=== PATIENT | female | born 1955 | race Caucasian/White ===

== ENCOUNTER 2019-02-22 13:25 | Inpatient (IN) ==
[2019-02-22] MEDS ORDERED: ONDANSETRON INJ 2 MG/ML 2 ML VIAL ONE (13:45)
[2019-02-22] MEDS ORDERED: SODIUM CHLORIDE 0.9% 500 ML IV SCH (13:45)
[2019-02-22] MEDS ORDERED: SODIUM CHLORIDE 0.9% 1000ML 1,000 ML IV SCH (13:45)
[2019-02-22] MEDS ORDERED: HYDROmorphone INJ 0.5 MG/0.5 ML SYR IV STA (13:56)
[2019-02-22] MEDS ORDERED: ONDANSETRON INJ 2 MG/ML 2 ML VIAL IV STA (13:56)
--- NOTE | 2019-02-22 14:35 | Gastrointestinal Consultation ---
Date of Consultation February 22, 2019 Assessment & Plan (1) Abdominal pain: 63 year old female w/ history spinal stenosis s/p inguinal hernia repair in January 2019 who presents to the ED w/ persistent abdominal pain worsening over the past 24 hours. Report questioning diverticulitis on CT from OSH - CBC/CMP - Continue IV analgesia - Continue IV antiemetics - Arrange contrast enhanced CT - Can continue Bentyl Thank you for allowing us to participate in the care of this patient. Please call with any acute changes, questions or concerns. Please see addendum below with additional recommendation from my supervising physician. Supervising Physician Co-Signing Physician Notes I have personally seen and examined the patient with FANG Crenshaw. Her note reflects my exam and findings. I agree with her impression and plan. Patient already feeling better after receiving pain medication. Agree with CT and check WBC. Unclear etiology of pain. Ramsey Gregory M.D. History of Present Illness Reason for Consultation: abdominal pain Requesting Physician: Alice Attending Physician: Alice History of Present Illness 63 year old female with history of spinal stenosis s/p inguinal hernia repair in January 2019 who presents to the ED w/ persistent abdominal pain worsening over the past 24 hours. Pt was seen and evaluated, chart reviewed. She endorses a history of chronic constipation. Maintined on Miralax near daily. Was in her typical state of health s/p hernia repair and was noted to be healing appropriately. 4/5 days after this, she developed lower abdominal pain. This was severe, cramping. Mostly LLQ but also RLQ. It was not associated with PO. Worse with BM. Bowels largely unchanged. No diarrhea, constipation. No black or bloody stools. Pain persisted, did present to OSH. I do not have report of CT scan but this was concerning for mild diverticulitis. She was evaluated by GI, started on bowel regimen and Bentyl. Notes the Bentyl had initially helped her symptoms, however, over the past 24 hours, pain has worsened. Constant, lower abd pain. Associated w/ nausea and vomiting yesterday. Did have a BM last evening that was normal. Some chills at home but no fevers. Allergies Allergy/AdvReac Type Severity Reaction Status Date / Time No Known Allergies Allergy Unverified 02/22/19 14:08 Home Medications Home Medications Medication Instructions Recorded Confirmed Type bupropion HCl [Wellbutrin XL] 150 mg PO QAM 02/22/19 02/22/19 History dicyclomine 10 mg PO BID 02/22/19 02/22/19 History fexofenadine-pseudoephedrine 1 tab PO PM PRN 02/22/19 02/22/19 History [Gwendolyn-D 24 Hour] hydrocodone-acetaminophen 1 tab PO Q6H PRN 02/22/19 02/22/19 History Patient History Medical History Spinal stenosis (Chronic) Surgical History H/O hernia repair (Resolved) Social History Smoking Status: Never smoker Review of Systems Constitutional: + chills and + fatigue; no fever and no weight loss Respiratory: no cough, no dyspnea and no wheezing Cardiovascular: no chest pain, no radiating jaw, neck or arm pain and no claudication Gastrointestinal: + abdominal pain, + bloating, + nausea and + vomiting; no belching, no early satiety, no heartburn, no coffee ground emesis, no hematemesis, no pain with swallowing, no dysphagia, no cramping, no excessive flatulence, no change in bowel habits, no change in stools, no constipation, no diarrhea/loose stools, no fecal incontinence, no blood in stools and no melena Physical Exam Constitutional: WD/WN, vitals as above Neck: trachea midline Respiratory: normal respiratory effort, lungs clear to auscultation Cardiovascular: RRR, no murmur, no edema Gastrointestinal (Abdomen): Inspection/Auscultation: normal bowel sounds Percussion/Palpation: + abdomen tender (mild lower abd pain w/ palpation) and abdomen soft; no guarding, abdomen not rigid, no abdominal mass and no ascites Skin: no rashes, warm and dry Results & Data Vital Signs (Past 12 Hours) Vital Signs Temp Pulse Resp BP Pulse Ox 02/22/19 13:27 36.6 C 79 28 H 180/90 H 100
[2019-02-22 15:08] LABS: Basophils # (auto) 0.03 K/uL (0-0.2); Basophils % (auto) 0.6 %; Eosinophils # (auto) 0.08 K/uL (0-0.5); Eosinophils % (auto) 1.5 %; Hematocrit (blood only) 38.8 % (37-47); Hemoglobin 14.3 g/dL (12.0-16.0); Immature Granulocytes # (auto) 0.01 K/uL (0.00-0.02); Immature Granulocytes % (auto) 0.2 %; Lymphocytes % (auto) 32.6 %; Mean Corpuscular Hgb Conc 36.9 g/dL (32-36); Mean Corpuscular Volume 88.2 fL (80-100); Mean Platelet Volume 10.5 fL (7.4-10.4); Monocytes # (auto) 0.63 K/uL (0.11-0.59); Monocytes % (auto) 12.1 %; Neutrophils # (auto) 2.76 K/uL (1.4-6.5); Platelet Count 260 K/uL (130-400); RDW Coefficient of Variation 13.4 % (11.5-14.5); RDW Standard Deviation 43.2 fL (36.4-46.3); White Blood Count 5.21 K/uL (4.8-10.8)
[2019-02-22 15:51] LABS: Alanine Aminotransferase 24 U/L (12-78); Albumin Level 3.6 gm/dl (3.4-5.0); Aspartate Aminotransferase 17 U/L (15-37); BUN Creatinine Ratio 12.3 (10-20); Blood Urea Nitrogen 8 mg/dl (7-18); Calcium 8.5 mg/dl (8.5-10.1); Carbon Dioxide 25 mmol/L (21-32); Chloride 99 mmol/L (98-107); Est GFR (African American) 107.7; Est GFR (Non-African American) 92.9; Glucose 124 mg/dl (70-99); Potassium 3.1 mmol/L (3.5-5.1); Sodium 131 mmol/L (136-145)
[2019-02-22 15:55] LABS: Albumin Globulin Ratio 1.4 (0.9-2); Alkaline Phosphatase 59 U/L (45-117); Bilirubin,Total 0.6 mg/dl (0.2-1); Globulin 2.6 gm/dl (2.5-4.0); Total Protein 6.2 gm/dl (6.4-8.2)
[2019-02-22] MEDS ORDERED: IOVERSOL 100ml IV PRN (16:10)
[2019-02-22 16:20] LABS: Appearance Urine Clear (Clear); Bilirubin Urine Negative (Negative); Blood Urine Negative (Negative); Color Urine Yellow; Glucose Urine UA Negative (Negative); Ketones Urine Trace (Negative); Leukocyte Esterase Urine Negative (Negative); Nitrite Urine Negative (Negative); Protein Urine Negative (Negative); Specific Gravity Urine 1.009 (1.000-1.030); Urobilinogen Urine Negative (Negative); pH Urine 7.5 (4.5-7.5)
--- NOTE | 2019-02-22 16:28 | CT Scan Report ---
CT abd pelvis oral and IV con CLINICAL HISTORY: 63 years-old Female presenting with lower abd pain, colicky s/p inguinal hernia rep air. TECHNIQUE: Multidetector CT of the abdomen and pelvis was performed after the administration of oral and intravenous contrast. IV contrast: Optiray 320. One or more dose lowering techniques were used co nsistent with the principles of ALARA (as low as reasonably achievable), including automatic exposure control, mA or kV adjustment to individual patient size, and/or use of iterative reconstruction. COMPARISON: Outside CT from 02/09/2019. CT DOSE (mGy.cm): The estimated cumulative dose is 250.41 mGy.cm. FINDINGS: [employer] topogram: Unremarkable. Lung bases: Normal heart size. No pericardial or pleural effusion. Minimal dependent changes likely a telectasis. Liver: Normal morphology. Subcentimeter well-defined hypodense lesion in the right hepatic lobe likel y hepatic cyst or hamartoma. Patent hepatic vasculature. Biliary: No intrahepatic or extrahepatic biliary ductal dilatation. Normal gallbladder. Pancreas: Top normal prominence of the pancreatic duct. Pancreatic parenchyma normal. Spleen: Normal. Adrenal glands: Normal. Kidneys and ureters: Normal. No hydronephrosis. Bladder: Incompletely evaluated secondary to underdistention. Pelvic organs: Uterus and ovaries normal. Bowel: Mild apparent wall thickening of the left colon, which is most likely due to underdistention. Mildly distended small bowel in the pelvis and right lower quadrant with a diameter of 2.5 cm. There is smooth downstream and up stream tapering to normal caliber. No convincing evidence of obstruction. No significant small bowel wall thickening is apparent. Peritoneal cavity: Mild diffuse mesenteric edema. Small volume simple appearing ascites in the pelvis and trace ascites in the abdomen. Lymph nodes: No enlarged lymph nodes in the abdomen or pelvis. Vasculature: Aorta and IVC patent and normal in caliber. Abdominal wall: Mild body wall edema. No evidence of a recurrent left inguinal hernia. Musculoskeletal: Advanced degenerative changes of the spine. IMPRESSION: 1. Mild body wall edema, mesenteric edema, and small volume ascites could suggest volume overload. 2. Distention of the small bowel in the pelvis or right lower quadrant without convincing evidence o f a bowel obstruction. This could indicate a mild ileus such as in the setting of a mild enteritis or in the postsurgical setting. 3. No evidence of a recurrent left inguinal hernia. Electronically signed by: Fabricio Marin M.D. 02/22/2019 4:26 PM
[2019-02-22] MEDS: POTASSIUM CHLORIDE / WTR 10 MEQ/100 ML PLCT IV SCH ×2 (16:34→17:46)
--- NOTE | 2019-02-22 17:33 | Emergency Department Note ---
Entered by Sandhya Herrera acting as a scribe for Maddy Jenkins MD History of Present Illness General Chief complaint: Abdominal Pain Stated complaint: SEVERE ABD PAIN, S/P LEIGH 3 WEEKS AGO Source: patient and family History of Present Illness Provider complaint: abdominal pain Onset (ago): week(s) 3 Location: abdomen Severity: severe Maximum Pain Intensity: 10 Quality: + other (cramping) Associated symptoms: + nausea/vomiting The patient is a 63 year old female who presents to the Emergency Department with complaints of abdominal pain over the last 3 weeks. She describes the pain as a cramp and states that her pain is severe. The patient states that she had a hernia surgery done 3 weeks ago in [place]. The patient states that she has been having bowel movements and states that she has been drinking Miralax. The patient states that she vomited last night. Her states that the patient was in the ED on February 09 for abdominal pain. Her states that the patient's symptoms have worsened since 2200 last night. Per , the patient has severe spinal stenosis. Per , the patient has lost about 7-8 pounds. Home Medications Home Medications Medication Instructions Recorded Confirmed Type bupropion HCl 150 mg PO DAILY 02/22/19 02/22/19 History cholecalciferol (vitamin D3) 2,000 unit PO DAILY 02/22/19 02/22/19 History [Vitamin D3] dicyclomine 10 mg PO BID 02/22/19 02/22/19 History fexofenadine-pseudoephedrine 1 tab PO PM PRN 02/22/19 02/22/19 History [Gwendolyn-D 24 Hour] Allergies Allergy/AdvReac Type Severity Reaction Status Date / Time No Known Allergies Allergy Unverified 02/22/19 14:08 Past Med/Surg History Medical History Depression (Chronic) Spinal stenosis (Chronic) Surgical History H/O hernia repair (Resolved) History of hand surgery (Chronic) History of lumpectomy (Chronic) History of shoulder surgery (Chronic) Family History Other Colonic polyp Social History Preferred Language: Irish Communication Ability: Effective Fur Operator Required: No Beliefs That Will Affect Care: None Current Living Situation: Spouse Other Information That Helps Us Care for You: No Feels Safe at Home: Yes Safety Concerns: Feels Safe At This Time Smoking Status: Never smoker Hx Alcohol Use: Yes Alcohol type: wine Alcohol type Comment: socially Hx Substance Use: No Review of Systems See HPI for pertinent positives & negatives. and A total of 10 systems reviewed and were otherwise negative Physical Exam Vital Signs Vital Signs - 24 hr 02/22/19 13:27 02/22/19 15:49 02/22/19 17:00 Temperature 36.6 C Temperature Source Oral Sepsis Recent Fever Within 48 Hours No Sepsis Action Taken by Nursing No Action Required Pulse Rate 79 Pulse Rate [Apical] 62 60 Pulse Rhythm Regular Pulse Rhythm [Apical] Regular Pulse Strength Normal Pulse Strength [Apical] Normal Respiratory Rate 28 H 20 20 Respiratory Effort / Characteristics Non-Labored Spontaneous Respiratory Depth Normal Blood Pressure 180/90 H Blood Pressure [Right Arm] 165/73 H 131/77 Blood Pressure Mean 120 Blood Pressure Mean [Right Arm] 103 95 Blood Pressure Position Sitting Blood Pressure Position [Right Arm] Sitting Sitting Pulse Oximetry 100 99 99 Oxygen Delivery Method Room Air Vital signs reviewed. General: Well-appearing female, tearful, in no significant distress. HEENT: No scleral icterus, PERRLA, neck supple. Atraumatic. Cardiovascular: Regular rate and rhythm, no extra sounds. Pulmonary: Clear to auscultation bilaterally, normal work of breathing. Abdomen: Soft, nondistended, positive bowel sounds. Intermittent colicky pain in the lower abdomen. Incision appears to be well healing with no drainage or erythema. No appreciable hernia upon exam. Musculoskeletal: Atraumatic, no peripheral edema. Neurologic: Patient awake alert and oriented x . Skin: Warm, dry, no rash Course 1353: The patient was evaluated in room B4B. A history and physical were performed. 1649: I updated the patient who verbalized agreement and understanding of the treatment plan. 1658: I discussed the patient's case with Kaylynn Winston who will evaluate the patient for further management. Consultations Consultation #1: Kaylynn Winston Time: 16:58 Administered Medications Bupropion HCl (Wellbutrin-Sr) 150 mg PO DAILY ANNEL Stop: 03/25/19 08:59 Last Admin: 02/23/19 08:45 Dose: 150 mg Documented by: [id number] Dicyclomine HCl (Bentyl) 10 mg PO BID ANNEL Stop: 03/24/19 20:59 Last Admin: 02/23/19 08:44 Dose: 10 mg Documented by: [id number] Admin: 02/22/19 20:58 Dose: 10 mg Documented by: [id number] Hydromorphone HCl (Dilaudid) 0.5 mg IV Q4H PRN PRN Reason: Pain Stop: 03/08/19 20:24 Last Admin: 02/22/19 21:55 Dose: 0.5 mg Documented by: [id number] Vitamin D (Vitamin D3) 2,000 units PO DAILY ANNEL Stop: 03/25/19 08:59 Last Admin: 02/23/19 08:44 Dose: 2,000 units Documented by: [id number] Discontinued Medications Hydromorphone HCl (Dilaudid) 0.5 mg IV NOW STA Stop: 02/22/19 13:57 Last Admin: 02/22/19 14:05 Dose: 0.5 mg Documented by: [id number] Sodium Chloride (Nss 1000ml) 1,000 mls @ 125 mls/hr IV .Q8H ANNEL Stop: 03/24/19 13:44 Last Infusion: 02/22/19 18:56 Dose: 0 mls/hr Documented by: [id number] Admin: 02/22/19 13:49 Dose: 125 mls/hr Documented by: [id number] Sodium Chloride (Nss) 500 mls @ 999 mls/hr IV .Q31M ANNEL Stop: 02/22/19 14:15 Last Infusion: 02/22/19 14:54 Dose: 0 mls/hr Documented by: [id number] Admin: 02/22/19 13:49 Dose: 999 mls/hr Documented by: [id number] Potassium Chloride (K Dileep / Wtr) 10 meq in 100 mls @ 100 mls/hr IV Q1H ANNEL Stop: 02/22/19 17:59 Last Infusion: 02/22/19 18:56 Dose: 0 mls/hr Documented by: [id number] Admin: 02/22/19 17:46 Dose: 100 mls/hr Documented by: [id number] Infusion: 02/22/19 17:46 Dose: 0 mls/hr Documented by: [id number] Admin: 02/22/19 16:34 Dose: 100 mls/hr Documented by: [id number] Potassium Chloride/Sodium Chloride (Normal Saline W/20 Meq Kcl) 20 meq in 1,000 mls @ 100 mls/hr IV .Q10H ANNEL Stop: 02/23/19 06:59 Last Infusion: 02/23/19 06:58 Dose: 0 mls/hr Documented by: [id number] Admin: 02/22/19 20:58 Dose: 100 mls/hr Documented by: [id number] Ioversol (Optiray 320 100ml) 94 ml IV ONCE PRN PRN Reason: Interaction Checking Stop: 02/26/19 16:09 Last Admin: 02/22/19 16:10 Dose: 94 ml Documented by: [id number] Ondansetron HCl (Zofran) Confirm Administered Dose 4 mg .ROUTE .STK-MED ONE Stop: 02/22/19 13:46 Last Admin: 02/22/19 13:49 Dose: 4 mg Documented by: [id number] Ondansetron HCl (Zofran) 4 mg IV NOW STA Stop: 02/22/19 13:57 Last Admin: 02/22/19 14:05 Dose: Not Given Documented by: [id number] Medical Decision Making Differential Diagnosis Differential diagnosis: Etiologies such as biliary colic, cholecystitis, hepatitis, perihepatitis, pancreatitis, cardiac disease, pancreatitis, gastritis, peptic ulcer disease, appendicitis, ovarian cyst, ovarian torsion, pelvic inflammatory disease, cystitis, diverticulitis, mesenteric ischemia, inflammatory bowel disease, ileus, bowel obstruction, aortic pathology, shingles, as well as others were considered. Medical Records Attestation: I reviewed the patient's medical records. Home Medications Current Medication List: was personally reviewed by me Laboratory Data Attestation: I reviewed the patient's lab results. Result diagrams: 02/23/19 08:04 02/23/19 08:04 Lab Results 02/22/19 02/22/19 02/22/19 Range/Units 13:42 15:14 15:14 WBC 5.21 (4.8-10.8) K/uL RBC 4.40 (4.2-5.4) M/uL Hgb 14.3 (12.0-16.0) g/dL Hct 38.8 (37-47) % MCV 88.2 (80-100) fL MCH 32.5 (25-34) pg MCHC 36.9 H (32-36) g/dL RDW Std Deviation 43.2 (36.4-46.3) fL RDW Coeff of Bj 13.4 (11.5-14.5) % Plt Count 260 (130-400) K/uL MPV 10.5 H (7.4-10.4) fL Immature Gran % (Auto) 0.2 % Neut % (Auto) 53.0 % Lymph % (Auto) 32.6 % Pine % (Auto) 12.1 % Eos % (Auto) 1.5 % Baso % (Auto) 0.6 % Immature Gran # (Auto) 0.01 (0.00-0.02) K/uL Neut # (Auto) 2.76 (1.4-6.5) K/uL Lymph # (Auto) 1.70 (1.2-3.4) K/uL Pine # (Auto) 0.63 H (0.11-0.59) K/uL Eos # (Auto) 0.08 (0-0.5) K/uL Baso # (Auto) 0.03 (0-0.2) K/uL Sodium 131 L (136-145) mmol/L Potassium 3.1 L (3.5-5.1) mmol/L Chloride 99 (98-107) mmol/L Carbon Dioxide 25 (21-32) mmol/L Anion Gap 7.0 (3-11) BUN 8 (7-18) mg/dl Creatinine 0.67 (0.6-1.2) mg/dl Est Cr Clr Drug Dosing Not Reportable Est GFR ( Amer) 107.7 Est GFR (Non-Af Amer) 92.9 BUN/Creatinine Ratio 12.3 (10-20) Glucose 124 H (70-99) mg/dl Lactate 0.7 (0.4-2.0) mmol/L Calcium 8.5 (8.5-10.1) mg/dl Total Bilirubin 0.6 (0.2-1) mg/dl AST 17 (15-37) U/L ALT 24 (12-78) U/L Alkaline Phosphatase 59 (45-117) U/L Total Protein 6.2 L (6.4-8.2) gm/dl Albumin 3.6 (3.4-5.0) gm/dl Globulin 2.6 (2.5-4.0) gm/dl Albumin/Globulin Ratio 1.4 (0.9-2) Lipase 158 (73-393) U/L Urine Color Urine Appearance (Clear) Urine pH (4.5-7.5) Ur Specific [place] (1.000-1.030) Urine Protein (Negative) Urine Glucose (UA) (Negative) Urine Ketones (Negative) Urine Blood (Negative) Urine Nitrite (Negative) Urine Bilirubin (Negative) Urine Urobilinogen (Negative) Ur Leukocyte Esterase (Negative) 02/22/19 Range/Units 15:35 WBC (4.8-10.8) K/uL RBC (4.2-5.4) M/uL Hgb (12.0-16.0) g/dL Hct (37-47) % MCV (80-100) fL MCH (25-34) pg MCHC (32-36) g/dL RDW Std Deviation (36.4-46.3) fL RDW Coeff of Bj (11.5-14.5) % Plt Count (130-400) K/uL MPV (7.4-10.4) fL Immature Gran % (Auto) % Neut % (Auto) % Lymph % (Auto) % Pine % (Auto) % Eos % (Auto) % Baso % (Auto) % Immature Gran # (Auto) (0.00-0.02) K/uL Neut # (Auto) (1.4-6.5) K/uL Lymph # (Auto) (1.2-3.4) K/uL Pine # (Auto) (0.11-0.59) K/uL Eos # (Auto) (0-0.5) K/uL Baso # (Auto) (0-0.2) K/uL Sodium (136-145) mmol/L Potassium (3.5-5.1) mmol/L Chloride (98-107) mmol/L Carbon Dioxide (21-32) mmol/L Anion Gap (3-11) BUN (7-18) mg/dl Creatinine (0.6-1.2) mg/dl Est Cr Clr Drug Dosing Est GFR ( Amer) Est GFR (Non-Af Amer) BUN/Creatinine Ratio (10-20) Glucose (70-99) mg/dl Lactate (0.4-2.0) mmol/L Calcium (8.5-10.1) mg/dl Total Bilirubin (0.2-1) mg/dl AST (15-37) U/L ALT (12-78) U/L Alkaline Phosphatase (45-117) U/L Total Protein (6.4-8.2) gm/dl Albumin (3.4-5.0) gm/dl Globulin (2.5-4.0) gm/dl Albumin/Globulin Ratio (0.9-2) Lipase (73-393) U/L Urine Color Yellow Urine Appearance Clear (Clear) Urine pH 7.5 (4.5-7.5) Ur Specific [place] 1.009 (1.000-1.030) Urine Protein Negative (Negative) Urine Glucose (UA) Negative (Negative) Urine Ketones Trace H (Negative) Urine Blood Negative (Negative) Urine Nitrite Negative (Negative) Urine Bilirubin Negative (Negative) Urine Urobilinogen Negative (Negative) Ur Leukocyte Esterase Negative (Negative) Imaging Data Radiologist's Impression: Radiology results as stated below per my review and the radiologist's interpretation: CT abd pelvis oral and IV con CLINICAL HISTORY: 63 years-old Female presenting with lower abd pain, colicky s/p inguinal hernia repair. TECHNIQUE: Multidetector CT of the abdomen and pelvis was performed after the administration of oral and intravenous contrast. IV contrast: Optiray 320. One or more dose lowering techniques were used consistent with the principles of AL MONTEZ (as low as reasonably achievable), including automatic exposure control, mA or kV adjustment to individual patient size, and/or use of iterative reconstruction. COMPARISON: Outside CT from 02/09/2019. CT DOSE (mGy.cm): The estimated cumulative dose is 250.41 mGy.cm. 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 Lung bases: Normal heart size. No pericardial or pleural effusion. Minimal dependent changes likely atelectasis. Liver: Normal morphology. Subcentimeter well-defined hypodense lesion in the right hepatic lobe likely hepatic cyst or hamartoma. Patent hepatic vasculature. Biliary: No intrahepatic or extrahepatic biliary ductal dilatation. Normal gallbladder. Pancreas: Top normal prominence of the pancreatic duct. Pancreatic parenchyma normal. Spleen: Normal. Adrenal glands: Normal. Kidneys and ureters: Normal. No hydronephrosis. Bladder: Incompletely evaluated secondary to underdistention. Pelvic organs: Uterus and ovaries normal. Bowel: Mild apparent wall thickening of the left colon, which is most likely due to underdistention. Mildly distended small bowel in the pelvis and right lower quadrant with a diameter of 2.5 cm. There is smooth downstream and up stream tap ering to normal caliber. No convincing evidence of obstruction. No significant small bowel wall thickening is apparent. Peritoneal cavity: Mild diffuse mesenteric edema. Small volume simple appearing ascites in the pelvis and trace ascites in the abdomen. Lymph nodes: No enlarged lymph nodes in the abdomen or pelvis. Vasculature: Aorta and IVC patent and normal in caliber. Abdominal wall: Mild body wall edema. No evidence of a recurrent left inguinal hernia. Musculoskeletal: Advanced degenerative changes of the spine. IMPRESSION: 1. Mild body wall edema, mesenteric edema, and small volume ascites could suggest volume overload. 2. Distention of the small bowel in the pelvis or right lower quadrant without convincing evidence of a bowel obstruction. This could indicate a mild ileus such as in the setting of a mild enteritis or in the postsurgical setting. 3. No evidence of a recurrent left inguinal hernia. Electronically signed by: Fabricio Marin M.D. 02/22/2019 4:26 PM Blood Pressure Blood Pressure Findings: Elevated blood pressure Blood Pressure Disposition: further management by hospitalist [facility] This patient was evaluated and appeared to be in significant discomfort. IV access was obtained and laboratory work was drawn. The patient was placed on the manager ambulatory. She was hydrated with normal saline solution, given IV Dilaudid and Zofran for her discomfort. Laboratory work reveals a normal WBC and chemistries. A CT with IV and oral contrast was performed and is read largely without acute abnormality. Urinalysis is clear. [facility] gastroenterology, Dr. Rodriguez evaluated the patient at the bedside and felt the patient should be admitted for intractable abdominal pain and further evaluation. There is concern over the possibility of an internal hernia or subtle diverticulitis. At this time I do not see the necessity of antibiotic therapy. She was reevaluated and informed of the plan and agrees. She is resting comfortably. [facility] hospitalist was consulted for further management. Impression & Plan Intractable abdominal pain, Status post inguinal hernia repair Discharge Plan Visit Data *Final* Discharge Date/Time: 02/22/19 19:04 Chief Complaint: Abdominal Pain Stated Complaint: SEVERE ABD PAIN, S/P LEIGH 3 WEEKS AGO ED Provider: Maddy Jenkins Discharge Problem: Intractable abdominal pain, Status post inguinal hernia repair Patient Disposition: Admitted As Inpatient Discharge Instructions Interventions: ED Discharge Assessment Last Done: 02/22/19 19:04 The scribe's documentation has been prepared under my direction and personally reviewed by me in its entirety. I confirm that the note above accurately reflects all work, treatment, procedures, and medical decision making performed by me.
--- NOTE | 2019-02-22 18:15 | History & Physical Report ---
Date of Service February 22, 2019 Assessment & Plan (1) Intractable abdominal pain: (2) Status post inguinal hernia repair: This is a 63yo F with a PMH of depression and recent inguinal hernia repair who presents with persistent abdominal pain x 1 day. -In setting of recent inguinal hernia repair at [facility] on February 03 -Sent from GI clinic today due to concern for intermittent resolving obstruction -CT abd/pelvis with distention of the small bowel in the pelvis or right lower quadrant without convincing evidence of a bowel obstruction. This could indicate a mild ileus such as in the setting of a mild enteritis or in the postsurgical setting. No evidence of a recurrent left inguinal hernia -GI evaluated patient in the ED -Clears for now, NPO after midnight -PRN pain control, antiemetics, NSS + 20mEq KCl -Repeat CT abd/pelvis without contrast in the AM -Consider gen surg consult if pain persists (3) Depression: Continue Wellbutrin DVT Ppx: SCDs, early ambulation Code status: FULL PCP: Purnima (SOL Lopez) Dispo: Observation med tele. Plan to return home once medically stable. Patient seen in collaboration with Dr. Siegel. Please see addendum. History of Present Illness Chief Complaint: abdominal pain Primary Care Provider: NO PCP This is a 63yo F with a PMH of depression and recent inguinal hernia repair who presents with persistent abdominal pain x 1 day. Patient had inguinal hernia repair on February 03 at [facility]. Since procedure, patient has had intermittent, cramping abdominal pain with associated nausea and vomiting. End orses chronic constipation, for which she takes MiraLAX every morning and has been having bowel movements. Was seen in [facility] ED last week for evaluation of pain with CT abd/pelvis reporting ? mild diverticulitis (report not available). Also evaluated at surgical post-op appointment without any issues. This past weekend, patient was feeling better and thought she was returning to baseline. Has been taking Bentyl with some relief. Had normal bowel movement yesterday morning but then developed persistent cramping abdominal pain with associated nausea and vomiting. Was seen by Dr. Rodriguez in clinic today, who sent patient to ED for further evaluation of obstruction. In ED, found to be afebrile and hemodynamically stable. Pain resolved after 0.5mg of IV Dilaudid. Denies any chills, lightheadedness, chest pain, shortness of breath, nausea, vomiting, dysuria, diarrhea, melena or hematochezia. CT abd/pelvis with oral and IV contrast revealed mild body wall edema, mesenteric edema, and small volume ascites could suggest volume overload. Distention of the small bowel in the pelvis or right lower quadrant without convincing evidence of a bowel obstruction. This could indicate a mild ileus such as in the setting of a mild enteritis or in the postsurgical setting. No evidence of a recurrent left inguinal hernia. GI also reviewed imaging and in the setting of intermittent kaden n since hernia surgery, are concerned for intermittent resolving obstructions. Patient to be observed overnight given persistent symptoms, poor PO tolerance and need for IV analgesia. Allergies Allergy/AdvReac Type Severity Reaction Status Date / Time No Known Allergies Allergy Unverified 02/22/19 14:08 Home Medications Home Medications Medication Instructions Recorded Confirmed Type bupropion HCl 150 mg PO DAILY 02/22/19 02/22/19 History cholecalciferol (vitamin D3) 2,000 unit PO DAILY 02/22/19 02/22/19 History [Vitamin D3] dicyclomine 10 mg PO BID 02/22/19 02/22/19 History fexofenadine-pseudoephedrine 1 tab PO PM PRN 02/22/19 02/22/19 History [Gwendolyn-D 24 Hour] Past Med/Surg History Medical History Depression (Chronic) Spinal stenosis (Chronic) Surgical History H/O hernia repair (Resolved) History of hand surgery (Chronic) History of lumpectomy (Chronic) History of shoulder surgery (Chronic) Family History Other Colonic polyp Social History Current Living Situation: Spouse Smoking Status: Never smoker Hx Alcohol Use: Yes Alcohol type: wine Alcohol type Comment: socially Hx Substance Use: No Review of Systems Review of Systems: At least ten systems reviewed and negative except as noted in the HPI. Physical Exam Physical Exam: General Appearance: WD/WN, no apparent distress, resting comfortably Head: normocephalic, atraumatic Eyes: normal inspection, PERRL, EOMI ENT: hearing grossly normal, pharynx normal (dry mucous membranes) Neck: supple, no JVD, no adenopathy Respiratory/Chest: lungs clear to auscultation. No wheezes, rales or rhonci. No respiratory distress or accessory muscle use Cardiovascular: regular rate, rhythm, no murmur, normal peripheral pulses Abdomen/GI: normal bowel sounds, soft, non-tender to palpation, small healing surgical incisions without surrounding erythema Extremities/Musculoskelatal: normal inspection, no calf tenderness, normal capillary refill, no pedal edema Neurologic/Psych: alert, normal mood/affect, oriented x 3 Skin: normal color, warm/dry Results & Data Vital Signs (Past 12 Hours) Vital Signs Temp Pulse Pulse Resp BP BP Pulse Ox 02/22/19 17:00 60 20 131/77 99 02/22/19 15:49 62 20 165/73 H 99 02/22/19 13:27 36.6 C 79 28 H 180/90 H 100 Laboratory Results Short CBC 02/22/19 Range/Units 13:42 WBC 5.21 (4.8-10.8) K/uL Hgb 14.3 (12.0-16.0) g/dL Hct 38.8 (37-47) % Plt Count 260 (130-400) K/uL BMP 02/22/19 15:14 Sodium 131 L Potassium 3.1 L Chloride 99 Carbon Dioxide 25 BUN 8 Creatinine 0.67 Glucose 124 H Calcium 8.5 Liver Function 02/22/19 Range/Units 15:14 Total Bilirubin 0.6 (0.2-1) mg/dl AST 17 (15-37) U/L ALT 24 (12-78) U/L Alkaline Phosphatase 59 (45-117) U/L Albumin 3.6 (3.4-5.0) gm/dl Urine 02/22/19 Range/Units 15:35 Urine Color Yellow Urine Appearance Clear (Clear) Urine pH 7.5 (4.5-7.5) Ur Specific [place] 1.009 (1.000-1.030) Urine Protein Negative (Negative) Urine Glucose (UA) Negative (Negative) Diagnostic Findings CT abd/pelvis: IMPRESSION: 1. Mild body wall edema, mesenteric edema, and small volume ascites could suggest volume overload. 2. Distention of the small bowel in the pelvis or right lower quadrant without convincing evidence of a bowel obstruction. This could indicate a mild ileus such as in the setting of a mild enteritis or in the postsurgical setting. 3. No evidence of a recurrent left inguinal hernia. Supervising Physician Co-Signing Physician Notes I have seen and examined the patient with physician assistant in nursing and agree with the assessment and plan as above and would like to comment that HISTORY OF HERNIA REPAIR INTRACTABLE ABDOMINAL PAIN MILD HYPOKALEMIA since hernia repair surgery in Jan, 2019, patient has been having on and off cramping abdominal pain. Patient's symptoms worsened recently with nausea and dry heaves and vomiting. Patient reports she has been able to take oral intake. She thinks her serum potassium levels are suboptimal because she is not eating as much leafy greens as she used to prior to the hernia repair surgery. In the ED she has been receiving potassium supplements for mild hypokalemia of 3.1. would continue IV fluids with potassium supplements overnight. Patient denies vomiting or diarrhea recently. Patient reports that the pain is somewhat spasm in nature of lower abdomen. And she found some improvement with Bentyl. Patient 's abdominal imaging remarkable for Mild body wall edema, mesenteric edema, and small volume ascites. On exam, patient's abdomen is not tender to palpation. bowel sounds are present. would continue Bentyl for now and give diluadid if pain is more severe. anti-emetics. will consult gastroenterology service in the AM. patient is ambulatory - would avoid subcutaneous Lovenox or IV heparin for now given patient's abdominal symptoms and thin body habitus Patient will be followed by Dr. Brown starting on 02/23/19
[2019-02-22] MEDS ORDERED: ONDANSETRON INJ 2 MG/ML 2 ML VIAL IV PRN (20:25)
[2019-02-22] MEDS ORDERED: HYDROmorphone INJ 0.5 MG/0.5 ML SYR IV PRN (20:25)
[2019-02-22] MEDS ORDERED: ACETAMINOPHEN 1,000 MG/100 ML VIAL IV PRN (20:25)
[2019-02-22] MEDS: DICYCLOMINE HCL 10 MG CAP PO SCH (20:58)
[2019-02-22] MEDS ORDERED: NSS + 20MEQ KCL 20 MEQ/1,000 ML BAG IV SCH (21:00)
[2019-02-23 08:22] LABS: Hematocrit (blood only) 35.8 % (37-47); Hemoglobin 12.6 g/dL (12.0-16.0); Mean Corpuscular Hgb Conc 35.2 g/dL (32-36); Mean Corpuscular Volume 91.3 fL (80-100); Mean Platelet Volume 9.6 fL (7.4-10.4); Platelet Count 199 K/uL (130-400); RDW Coefficient of Variation 13.7 % (11.5-14.5); RDW Standard Deviation 45.8 fL (36.4-46.3); Red Blood Count 3.92 M/uL (4.2-5.4); White Blood Count 3.41 K/uL (4.8-10.8)
--- NOTE | 2019-02-23 08:26 | Gastroenterology Progress Note ---
Date of Service February 23, 2019 Assessment & Plan (1) H/O hernia repair: 63 year old female w/ history spinal stenosis s/p inguinal hernia repair in January 2019 who presents to the ED w/ persistent abdominal pain worsening over the past 24 hours concern for intermittent resolving SBO. Labs this AM Surgery and colonoscopy report requested Continue symptomatic management w/ IV analgesia and IV antiemetics PRN Please see note from yesterday for additional recommendations Thank you for allowing us to participate in the care of this patient. Please call with any acute changes, questions or concerns. Please see addendum below with additional recommendation from my supervising physician. Supervising Physician Co-Signing Physician Notes I have personally seen and examined the patient with FANG Crenshaw. Her note reflects my exam and findings. I agree with her impression and plan. Patient seems comfortable eating ice pops with at bedside. Dr. Rodriguez asked surgery to see patient given no obvious source for patients symptoms. CT scan with some mild mesenteric edema of unclear etiology and unclear significance. Ramsey Gregory M.D. Subjective Pt was seen and evaluated, chart reviewed. Feeling better Less abd pain No nausea, vomiting. Had a large BM that was darker than normal - did take Pepto prior to arrival No bloody stools. No fever, chills CT: Mild body wall edema, mesenteric edema, and small volume ascites could suggest volume overload.Distention of the small bowel in the pelvis or right lower quadrant without convincing evidence of a bowel obstruction. This could indicate a mild ileus such as in the setting of a mild enteritis or in the postsurgical setting.No evidence of a recurrent left inguinal hernia. Review of Systems Constitutional: + fatigue; no fever, no chills and no body aches Respiratory: no cough, no dyspnea and no wheezing Cardiovascular: no chest pain, no radiating jaw, neck or arm pain and no dyspnea on exertion Gastrointestinal: + abdominal pain; no nausea, no vomiting, no coffee ground emesis, no hematemesis, no blood in stools and no melena Physical Exam Constitutional: WD/WN, vitals as above + well hydrated; no acute distress and not ill appearing Neck: trachea midline Respiratory: normal respiratory effort, lungs clear to auscultation Cardiovascular: Rate/Rhythm: regular rate and regular rhythm Gastrointestinal (Abdomen): normal bowel sounds, soft, nontender, no hepatosplenomegaly Skin: no rashes, warm and dry Results & Data Vital Signs (Past 12 Hours) Vital Signs Temp Pulse Resp BP Pulse Ox 02/22/19 22:04 36.5 C 74 16 116/71 99
[2019-02-23] MEDS: DICYCLOMINE HCL 10 MG CAP PO SCH ×2 (08:44→20:35)
[2019-02-23] MEDS: CHOLECALCIFEROL 1,000 UNITS TAB PO SCH (08:44)
[2019-02-23] MEDS: BuPROPion SR 150 MG TABCR PO SCH (08:45)
[2019-02-23 09:09] LABS: Albumin Level 3.4 gm/dl (3.4-5.0); BUN Creatinine Ratio 6.9 (10-20); Calcium 8.5 mg/dl (8.5-10.1); Creatinine Clr Calc Pharmacy 67.7 ml/min; Est GFR (African American) 99.2; Est GFR (Non-African American) 85.6; Potassium 3.8 mmol/L (3.5-5.1)
[2019-02-23 09:11] LABS: Albumin Globulin Ratio 1.2 (0.9-2); Bilirubin,Total 0.5 mg/dl (0.2-1); Globulin 2.9 gm/dl (2.5-4.0); Total Protein 6.3 gm/dl (6.4-8.2)
--- NOTE | 2019-02-23 09:26 | CT Scan Report ---
CT abd pelvis wo con CLINICAL HISTORY: 63 years-old Female presenting with intermittent obstructive symptoms. TECHNIQUE: Multidetector CT of the abdomen and pelvis was performed without the use of intravenous co ntrast. IV contrast: None. One or more dose lowering techniques were used consistent with the princip les of ALARA (as low as reasonably achievable), including automatic exposure control, mA or kV adjust ment to individual patient size, and/or use of iterative reconstruction. COMPARISON: 02/22/2019. CT DOSE (mGy.cm): The estimated cumulative dose is 257.10 mGy.cm. FINDINGS: Canvas Baster topogram: Unremarkable. Lung bases: Normal heart size. Trace pericardial effusion. No pleural effusion. Minimal dependent jenise nges likely atelectasis. Liver: Normal morphology. Normal liver density. Subcentimeter well-defined hypodense lesion in the ri ght hepatic lobe likely hepatic cyst or hamartoma. Biliary: No intrahepatic or extrahepatic biliary ductal dilatation. Vicarious excretion of contrast i n the gallbladder. Pancreas: Normal noncontrast appearance. Spleen: Normal noncontrast appearance. Adrenal glands: Normal noncontrast appearance. Kidneys and ureters: Normal noncontrast appearance. Punctate nonobstructing calculus in the left kidn ey. No hydronephrosis. Normal ureters. Bladder: Incompletely evaluated secondary to underdistention. Hyperdensity of the bladder lumen consi stent with excreted contrast. Pelvic organs: Normal noncontrast appearance. Bowel: Oral contrast has reached the rectum. Mild small bowel wall thickening is suggested in the rig ht lower quadrant allowing for lack of intravenous contrast. No convincing evidence of pathologically distended small bowel to suggest obstruction or partial obstruction. Subtle swirling of the mesenter y is nonspecific. Peritoneal cavity: Small volume free fluid in the pelvis, which may be greater than expected for the patient's postmenopausal status. Mild diffuse mesenteric edema. No free intraperitoneal gas. Lymph nodes: No gross lymphadenopathy allowing for noncontrast technique. Vasculature: Normal noncontrast appearance. Abdominal wall: Mild body wall edema. Postsurgical changes suspected in the left inguinal region. No convincing evidence of a hernia. Musculoskeletal: Advanced degenerative changes of the spine. IMPRESSION: 1. Small bowel wall thickening may be present, which could raise concern for an enteritis among othe r etiologies. No convincing evidence of a high-grade partial or complete bowel obstruction with oral contrast now in the rectum. 2. Mild apparent swirling of the mesentery in the midabdomen is present on the current exam to from prior, although nonspecific given the absence of other evidence for bowel obstruction. If there is co ntinuing concern for volvulus or obstruction, fluoroscopic small bowel follow-through could be obtain ed. 3. Body wall edema, mesenteric edema and small volume ascites again suggest volume overload. Electronically signed by: Fabricio Marin M.D. 02/23/2019 9:24 AM
--- NOTE | 2019-02-23 13:49 | Hospitalist Progress Note ---
Date of Service February 23, 2019 Assessment & Plan (1) Status post inguinal hernia repair: (2) Intractable abdominal pain: Worsening intermittent abdominal pain. Surgery evaluated and feels this is not a surgical issue. Likely part of the recovery process. No obvious obstruction, free air or other clear etiology apparent on CT scan. Lactate and WBC count are normal. Abdomen is soft and nondistended, and she is not febrile. There is some "swirling mesentery" present and small-bowel follow through is considered. Appreciate GI and Surgery input. Although she is feeling well now, this has been an intermittent pain issue and is severe. Will continue monitoring in the hospital tonight and allow her to have a regular diet to ensure pain does not return. (3) Depression: stable, cont home medications. (4) DVT prophylaxis: SCDs. Full Code Dispo-cont monitoring for next 1-2 days. Cont with workup in am. DO [facility] Subjective 63 yo F s/p elective inguinal hernia repair at [facility] who presents with clear post-op pain that is of uncertain etiology. She has tried multiple conservative treatments including Colace, a softer diet, Bentyl, etc. Nothing is helping the pain, which is coming on in waves every coupld of days. She is currently having some cramping but it is manageable and she is able to get up and walk around the room. Pain has not returned with prior intensity as on admission. Review of Systems Review of Systems: All systems reviewed & are unremarkable except as noted in HPI & below Physical Exam Physical Exam: CONSTITUTIONAL: WNWD, vitals as above, generally well- appearing EYES: normal conjunctivae, no scleral icterus ENT: MMM RESPIRATORY: clear to auscultation bilaterally, no crackles, rales or wheezes, normal respiratory effort CARDIOVASCULAR: regular rate and rhythm, S1 and 2 heard without murmurs, gallops or rubs, no JVD, no peripheral edema GASTROINTESTINAL: normal bowel sounds, soft, TTP in lower abdomen, nondistended, multiple well-healed laparoscopic incisions present without erythema or drainage present. One small stitch coming though the umbilical incision. MUSCULOSKELETAL: strength 5/5 throughout, head is normocephalic and atraumatic, ambulatory SKIN: warm and dry, wounds as above. NEUROLOGIC: CN 2-12 grossly intact, no sensory deficit, normal cognition, normal speech, no tremor, no gross focal deficits. PSYCHIATRIC: alert cooperative and oriented to person, place and time.
--- NOTE | 2019-02-24 06:35 | Surgery Consultation ---
Date of Consultation February 24, 2019 I was asked to see the patient for input on her abdominal pain I did talk with Dr. Romo regarding the patient on 02/22/19 evening where her past medical history was discussed there was no acute problems and I can see the patient next day I evaluated the patient on 02/23 Assessment & Plan (1) Intractable abdominal pain: At this time the patient has no indication of any acute intra-abdominal problems I suspect that the patient's symptoms are most likely related to her long- standing history of intermittent constipation The acute pain that she was experiencing and intermittently done so since her surgery was most likely related to constipation I did advise her that it may take up to another 3 weeks or so until her GI function normalizes to her pre-surgical state She should go back to what ever routine that she was using to keep her GI function towards normal I would be glad to see her at any time if further issues arise Present on Admission?: Yes History of Present Illness Reason for Consultation: This is a 63-year-old female who is quite active in general walks a few miles a day underwent a left inguinal hernia repair in [facility] on March 05 2019 Few days postoperatively at the usual postoperative pain associated with the repair the hernia had been done laparoscopically and suspect that this was related to return of her GI function and residual from pneumoperitoneum from the procedure She saw the surgeon postoperatively and felt that everything was fine regarding the surgery but she had some problem moving her bowels, she has had a long- standing history of constipation needing to move her bowels with some chemical help she underwent a colonoscopy in the past which was grossly negative Few days prior to admission patient had abdominal pain significant at times severe cramping on one occasion was seen by gastroenterology who immediately felt that the patient needed to be evaluated immediately a CT scan for possible acute abdomen She underwent a CT scan which was reviewed were really no specific findings contrast was minimally held up for the right lower quadrant and some dilated loops a CAT scan followed up yesterday basically showed contrast in the colon Attending Physician: Cecilia Brown, Allergies Allergy/AdvReac Type Severity Reaction Status Date / Time No Known Allergies Allergy Unverified 02/22/19 14:08 Home Medications Home Medications Medication Instructions Recorded Confirmed Type bupropion HCl 150 mg PO DAILY 02/22/19 02/22/19 History cholecalciferol (vitamin D3) 2,000 unit PO DAILY 02/22/19 02/22/19 History [Vitamin D3] dicyclomine 10 mg PO BID 02/22/19 02/22/19 History fexofenadine-pseudoephedrine 1 tab PO PM PRN 02/22/19 02/22/19 History [Gwendolyn-D 24 Hour] Patient History Medical History Depression (Chronic) Spinal stenosis (Chronic) Surgical History H/O hernia repair (Resolved) History of hand surgery (Chronic) History of lumpectomy (Chronic) History of shoulder surgery (Chronic) Family History Other Colonic polyp Social History Preferred Language: Lithuanian Communication Ability: Effective [place] Required: No Beliefs That Will Affect Care: None Current Living Situation: Spouse Other Information That Helps Us Care for You: No Feels Safe at Home: Yes Safety Concerns: Feels Safe At This Time Smoking Status: Never smoker Hx Alcohol Use: Yes Alcohol type: wine Alcohol type Comment: socially Hx Substance Use: No Review of Systems Review of Systems: Patient in general is enjoyed good health other than issues with a spinal stenosis and depression She denies any cardiac pulmonary history Her GI function as stated has been problematic at times as far as moving her bowels Physical Exam Physical Exam: First evaluation the patient on 02/23/2019 at approximately 6:00 in the morning the patient was sleeping comfortably she woke easily she was experiencing no abdominal pain on my questioning her and she was not in any acute distress Physical finding at that time showed trocar incisions for the laparoscopic hernia repair healing well in the supra umbilical area subcutaneous Monocryl suture could be easily palpated but there was no sign of infection Her abdomen was completely benign there was no distention no tenderness no recurrent hernias Extremities grossly normal Results & Data Vital Signs (Past 12 Hours) Vital Signs Temp Pulse Resp BP Pulse Ox 02/23/19 23:45 36.8 C 74 16 113/62 99 Her laboratory studies including the CAT scan x2 was reviewed with the radiologist last CAT scan she had yesterday 02/24 showed contrast and moved into the colon there was no residual contrast in the GI tract there was mention of the mesentery swirl sign but this was inconclusive and questionable
[2019-02-24] MEDS: DICYCLOMINE HCL 10 MG CAP PO SCH (08:43)
[2019-02-24] MEDS: CHOLECALCIFEROL 1,000 UNITS TAB PO SCH (08:43)
[2019-02-24] MEDS: BuPROPion SR 150 MG TABCR PO SCH (08:44)
--- NOTE | 2019-02-24 08:51 | Gastroenterology Progress Note ---
Date of Service February 24, 2019 Assessment & Plan (1) H/O hernia repair: 63 year old female w/ history spinal stenosis s/p inguinal hernia repair in January 2019 who presents to the ED w/ persistent abdominal pain worsening over the past 24 hours concern for intermittent resolving SBO. Diet as tolerated Continue scheduled Bentyl for abd cramping Small bowel follow-through w/ water soluble contrast prior to discharge Surgery and colonoscopy report requested Continue symptomatic management w/ IV analgesia and IV antiemetics PRN Will sign off. Will ensure outpatient GI follow up. Thank you for allowing us to participate in the care of this patient. Please call with any acute changes, questions or concerns. Please see addendum below with additional recommendation from my supervising physician. Subjective Pt was seen and evaluated, chart reviewed. Was evaluated by surgery - appreciate their input. No acute indication for surgical evaluation Feels well this AM No abd pain No nausea, vomiting. Eating breakfast She notes she was hypertensive this AM which is new Denies lightheadness, dizziness Moving bowels. Had a dark stool (did have PO contrast, pepto) No melena, No BRBPR Repeat CT was reviewed. Review of Systems Constitutional: no fever, no chills and no fatigue Respiratory: no cough, no dyspnea and no wheezing Cardiovascular: no chest pain, no radiating jaw, neck or arm pain and no dyspnea on exertion Gastrointestinal: no abdominal pain, no early satiety, no vomiting, no cramping, no change in stools and no melena Physical Exam Constitutional: WD/WN, vitals as above + well hydrated; no acute distress and not ill appearing Neck: trachea midline Respiratory: normal respiratory effort, lungs clear to auscultation Cardiovascular: RRR, no murmur, no edema Rate/Rhythm: regular rate and regular rhythm Gastrointestinal (Abdomen): normal bowel sounds, soft, nontender, no hepatosplenomegaly Inspection/Auscultation: normal bowel sounds Percussion/Palpation: + abdomen tender (mild lower abd pain w/ palpation) and abdomen soft; no guarding, abdomen not rigid, no abdominal mass and no ascites Skin: no rashes, warm and dry Results & Data Vital Signs (Past 12 Hours) Vital Signs Temp Pulse Resp BP Pulse Ox 02/24/19 08:19 36.6 C 70 20 170/99 H 100 02/23/19 23:45 36.8 C 74 16 113/62 99
--- NOTE | 2019-02-24 13:04 | Fluoroscopy Report ---
SMALL BOWEL FOLLOW-THROUGH CLINICAL HISTORY: Intermittent obstruction. Intermittent abdominal pain with vomiting. COMPARISON STUDY: Abdominal CT scans dated 02/23/2019 and 02/22/2019. TECHNIQUE: An abdominal rn admission radiograph was performed. The patient consumed approximately 400 cc of Optiray 300 and a small follow-through was performed. Overhead radiographs and spot compression image s were obtained. FINDINGS: The abdominal rn admission radiograph shows retained CT contrast in the colon. There is no radiographic evid ence of bowel obstruction. Phleboliths are noted in the pelvis. The bony structures appear intact. Contrast reaches the right colon by 2 h and 15 minutes. No high-grade bowel obstruction is identified . There is mild diffuse distention of the small bowel loops. There is delayed gastric emptying, with contrast persistent contrast in the stomach at 2 hours and 15 minutes. The small bowel mucosal patter n is normal. There is no evidence of stricture or mass. No decompressed loops are identified. The dis hayes/terminal ileum are not well-visualized on the spot compression views. Fluoroscopy time: 0.7 minutes Fluoroscopic images: 9 IMPRESSION: 1. Enteric contrast reaches the colon at 2 hours and 15 minutes. 2. There is mild nonspecific distention of the small bowel loops. There is no evidence of bowel obstr uction or focally decompressed loops identified at the time of examination. 3. There is delayed gastric emptying, with retained enteric contrast seen in the stomach at 2 hours a nd 15 minutes. Electronically signed by: Alexei Farmer M.D. 02/24/2019 1:02 PM
[2019-02-24] MEDS ORDERED: hydroCHLOROthiazide 25 MG TAB PO STA (15:35)
--- NOTE | 2019-02-24 16:18 | Discharge Summary ---
Date of Service February 24, 2019 Admission HPI Per Admitting Provider This is a 63yo F with a PMH of depression and recent inguinal hernia repair who presents with persistent abdominal pain x 1 day. Patient had inguinal hernia repair on February 03 at [facility]. Since procedure, patient has had intermittent, cramping abdominal pain with associated nausea and vomiting. Endorses chronic constipation, for which she takes MiraLAX every morning and has been having bowel movements. Was seen in [facility] ED last week for evaluation of pain with CT abd/pelvis reporting ? mild diverticulitis (report not available). Also evaluated at surgical post-op appointment without any issues. This past weekend, patient was feeling better and thought she was returning to baseline. Has been taking Bentyl with some relief. Had normal bowel movement yesterday morning but then developed persistent cramping abdominal pain with associated nausea and vomiting. Was seen by Dr. Rodriguez in clinic today, who sent patient to ED for further evaluation of obstruction. In ED, found to be afebrile and hemodynamically stable. Pain resolved after 0.5mg of IV Dilaudid. Denies any chills, lightheadedness, chest pain, shortness of breath, nausea, vomiting, dysuria, diarrhea, melena or hematochezia. CT abd/pelvis with oral and IV contrast revealed mild body wall edema, mesenteric edema, and small volume ascites could suggest volume overload. Distention of the small bowel in the pelvis or right lower quadrant without convincing evidence of a bowel obstruction. This could indicate a mild ileus such as in the setting of a mild enteritis or in the postsurgical setting. No evidence of a recurrent left inguinal hernia. GI also reviewed imaging and in the setting of intermittent pain since hernia surgery, are concerned for intermittent resolving obstructions. Patient to be observed overnight given persistent symptoms, poor PO tolerance and need for IV analgesia. Admission Exam Per Admitting Provider General Appearance: WD/WN, no apparent distress, resting comfortably Head: normocephalic, atraumatic Eyes: normal inspection, PERRL, EOMI ENT: hearing grossly normal, pharynx normal (dry mucous membranes) Neck: supple, no JVD, no adenopathy Respiratory/Chest: lungs clear to auscultation. No wheezes, rales or rhonci. No respiratory distress or accessory muscle use Cardiovascular: regular rate, rhythm, no murmur, normal peripheral pulses Abdomen/GI: normal bowel sounds, soft, non-tender to palpation, small healing surgical incisions without surrounding erythema Extremities/Musculoskelatal: normal inspection, no calf tenderness, normal capillary refill, no pedal edema Neurologic/Psych: alert, normal mood/affect, oriented x 3 Skin: normal color, warm/dry Principal Diagnosis post operative abdominal pain Hypertension Discharge Data Allergies Allergy/AdvReac Type Severity Reaction Status Date / Time No Known Allergies Allergy Unverified 02/25/19 01:40 Consultations 02/22/19 15:10 Consult Gastroenterology Stat 02/22/19 16:58 ED Decision to Admit Stat 02/22/19 20:25 Consult Gastroenterology Routine 02/23/19 13:42 Consult General Surgery Routine Ordered Studies 02/22/19 13:32 CT abd pelvis oral and IV con Stat 02/23/19 08:00 CT abd pelvis wo con Routine 02/24/19 08:52 FL small bowel study Routine Hospital Course (1) Intractable abdominal pain: (2) Status post inguinal hernia repair: 63-year-old female status post inguinal hernia repair three weeks ago presents with alternating severe intractable abdominal pain followed by periods of calm where she can tolerate food and ambulate normally. Her pain is described as so severe she cannot move. She has been to the ER at least twice for this issue and feels the symptoms are getting worse. She was hypertensive on admission with a blood pressure of 180/90. There was no appreciable hernia on exam. She was admitted to the Hospitalist service and Gastroenterology and General Surgery were consulted. A contrast-enhanced CT was performed revealing mild body wall edema, mesenteric edema and small volume ascites. Distention of the small bowel was also seen in the pelvis or right lower quadrant without convincing evidence of bowel obstruction. No evidence of a recurrent left inguinal hernia was seen. The following day is CT without contrast was performed of the abdomen revealing persistent small bowel wall thickening without convincing evidence of a high-grade partial or complete bowel obstruction and oral contrast now in the rectum from imaging the day prior. There was mild apparent swirling of the mesentery in the mid abdomen which was nonspecific given the absence of other evidence for bowel obstruction. Fluoroscopic small bowel follow-through was recommended and was performed the following day. This revealed enteric contrast reaching the colon at 2 hours and 15 minutes with mild nonspecific distention of the small bowel loops and again no consistent evidence for bowel obstruction. Delayed gastric emptying was noted. These findings were consistent with intermittent narcotic use and the postoperative recovery state. The surgery recommendation was against intervention at this time as her symptoms were thought to be most likely related to her long-standing history of intermittent constipation. It was advised that these symptoms may return for another three weeks or so until her GI function normalized to her presurgical state. She was advised to resume a normal diet at her normal routine. Gastroenterology continued scheduled Bentyl for abdominal cramping which was helpful for her and recommended continued symptomatic management with analgesia and antiemetics as needed. Throughout her hospitalization her abdominal pain did not return and she was able to tolerate solid food reliably prior to leaving. At time of discharge she was hemod ynamically stable and afebrile and mentating and ambulating at baseline. Physical exam revealed an improvement of tenderness from the day prior and surgical sites were well-healed without erythema or drainage. One small protruding stitch was coming through the umbilical wound, however, this was not thought to be an issue by surgery. Physical exam was otherwise unremarkable. It was noted that her blood pressure remained elevated throughout her hospitalization, and she was not on antihypertensives. Per her report she had discussed antihypertensives over the last year with her primary care physician, and was concerned she needed to start medications. She was placed on HCTZ 12.5mg PO daily, with primary care follow-up recommended in two weeks. She was measured for a blood pressure cuff size and was given a prescription for this. She was given a prescription for lab work to be done in two weeks time. She was sent home in stable condition with close primary care follow-up recommended. Total Time Total Time Spent Total Time Spent (In Minutes): 60 Total Time Includes: Examination of the Patient, Discharge Planning, Medication Reconciliation and Communication With Other Providers Discharge Plan Discharge Items Patient Disposition: Home - Self-Care Reason For Visit: INTRACTABLE ABDOMINAL PAIN Discharge Diagnosis: post operative abdominal pain Hypertension Condition: Good Discharge Goals: Decrease discomfort and Improve disease control Activity: Resume your previous activity Non-emergency contact: Primary Care Provider Call non-emergency contact if: you have any medication questions, your symptoms worsen, your pain is not controlled, your pain is worsening, your pain is unusual for you, your pain is concerning for you and you have a fever Follow-up/Referrals: PCP,NO [Primary Care Provider] - Diet: Low Sodium (2gm) Addtl Provider Instructions: Please take all medications as instructed on discharge list below. NEW MEDICATION: HYDROCHLOROTHIAZIDE (HCTZ) It is recommended to schedule a follow-up appointment with your primary care physician within one week of discharge. You are being given a prescription for non-fasting blood work to be done in two weeks. Results should be reviewed with your primary care physician. Remember that NSAIDs such as Ibuprofen, Motrin, Naproxen, or Aleve may interact with your new blood pressure medication, and you should not use these regularly while taking it. It was a pleasure taking care of you! Please call if you have any questions or problems. You can reach a [facility] hospitalist on duty at [facility] 24 hours a day by calling [phone]. Take care of yourself. Cecilia Brown DO [facility] Prescriptions: New hydrochlorothiazide 25 mg Tablet 12.5 mg PO QAM Qty: 30 RF: 1 dicyclomine 10 mg Capsule 10 mg PO BID Qty: 60 RF: 1 Continued Gwendolyn-D 24 Hour 180-240 mg Tablet Extended Release 24 Hr 1 tab PO PM PRN (Reason: seasonal allergies) RF: 0 bupropion HCl 150 mg tablet sustained-release 12 hr 150 mg PO DAILY RF: 0 cholecalciferol (vitamin D3) [Vitamin D3] 2,000 unit Tablet 2,000 unit PO DAILY RF: 0 Stand-Alone Forms: Call Back Authorization, My [facility] Discharge Orders: Discharge Order (Routine); Ordered 02/24/19 Ordered By: Cecilia Brown Admission Data Admit Date/Time: 02/23/19 13:39 Attending Provider: Cecilia Brown Admit Provider: Kody Siegel Primary Care Provider: PCP,NO Other Providers: Brendan Rodriguez ; Kody Siegel ; Ramsey Gregory ; Ke Phan Service: Medical Other Interventions: Discharge Summary Assessment (RN) Last Done: 02/24/19 16:50 DC Date/Time DO NOT enter until pt leaves facility: 02/24/19 17:05
[2019-02-25] MEDS ORDERED: hydroCHLOROthiazide 25 MG TAB PO SCH (09:00)
== END 2019-02-24 17:05 | disposition home or self-care (01) | DRG 394 ==
LOC: ED 13:25 → 2W 13:25

== ENCOUNTER 2019-02-25 00:46 | Inpatient (IN) ==
[2019-02-25] MEDS ORDERED: DiphenhydrAMINE HCL 50 MG/ML VIAL IV STA (01:06)
[2019-02-25] MEDS ORDERED: HYDROmorphone INJ 0.5 MG/0.5 ML SYR IV STA ×3 (01:06→12:59)
[2019-02-25] MEDS ORDERED: METOCLOPRAMIDE HCL INJ 5 MG/ML 2 ML VIAL IV STA (01:06)
[2019-02-25] MEDS ORDERED: SODIUM CHLORIDE 0.9% 1000ML 1,000 ML IV ONE (01:06)
[2019-02-25 01:13] LABS: Basophils # (auto) 0.01 K/uL (0-0.2); Basophils % (auto) 0.1 %; Eosinophils # (auto) 0.06 K/uL (0-0.5); Eosinophils % (auto) 0.9 %; Hematocrit (blood only) 34.5 % (37-47); Hemoglobin 12.6 g/dL (12.0-16.0); Immature Granulocytes # (auto) 0.01 K/uL (0.00-0.02); Immature Granulocytes % (auto) 0.1 %; Lymphocytes # (auto) 0.93 K/uL (1.2-3.4); Lymphocytes % (auto) 13.3 %; Mean Corpuscular Hgb Conc 36.5 g/dL (32-36); Mean Platelet Volume 9.9 fL (7.4-10.4); Monocytes # (auto) 0.55 K/uL (0.11-0.59); Monocytes % (auto) 7.9 %; Neutrophils # (auto) 5.43 K/uL (1.4-6.5); Neutrophils % (auto) 77.7 %; Platelet Count 203 K/uL (130-400); RDW Coefficient of Variation 13.4 % (11.5-14.5); RDW Standard Deviation 43.1 fL (36.4-46.3); Red Blood Count 3.92 M/uL (4.2-5.4); White Blood Count 6.99 K/uL (4.8-10.8)
--- NOTE | 2019-02-25 01:41 | Emergency Department Note ---
History of Present Illness General Chief complaint: Abdominal Pain Stated complaint: ABD. PAIN History of Present Illness Maximum Pain Intensity: 10 This 63-year-old presents to the ER complaining of severe abdominal pain Location: Lower abdomen Quality: Severe Severity: Severe Duration: Tonight Timing: Started tonight Context: Pain got worse and patient came back to the ER Modifying factors: better with nothing; worse with palpation Patient had hernia repair last month in [place]. She was just discharged from our facility today for intractable pain. Surgery did not think she had a surgical abdomen. Patient denies chest pain, dyspnea, cough, congestion, urinary symptoms. She has been having diarrhea since the contrast. Home Medications Home Medications Medication Instructions Recorded Confirmed Type Gwendolyn-D 24 Hour 1 tab PO PM PRN 02/22/19 02/25/19 History bupropion HCl 150 mg PO DAILY 02/22/19 02/25/19 History cholecalciferol (vitamin D3) 2,000 unit PO DAILY 02/22/19 02/25/19 History [Vitamin D3] dicyclomine 10 mg PO BID #60 cap 02/24/19 02/25/19 Rx hydrochlorothiazide 12.5 mg PO QAM #30 tab 02/24/19 02/25/19 Rx Allergies Allergy/AdvReac Type Severity Reaction Status Date / Time No Known Allergies Allergy Unverified 02/25/19 01:40 Past Med/Surg History Medical History Depression (Chronic) Spinal stenosis (Chronic) Intractable abdominal pain (Acute) Surgical History H/O hernia repair (Resolved) History of hand surgery (Chronic) History of lumpectomy (Chronic) History of shoulder surgery (Chronic) Family History Other Colonic polyp Social History Preferred Language: Occitan Communication Ability: Effective Beliefs That Will Affect Care: None Current Living Situation: Spouse Feels Safe at Home: Yes Smoking Status: Never smoker Hx Alcohol Use: Yes Alcohol type: wine Alcohol type Comment: socially Hx Substance Use: No Review of Systems All systems reviewed & are unremarkable except as noted in HPI & below Physical Exam Vital Signs Vital Signs - 24 hr 02/25/19 00:48 02/25/19 01:19 02/25/19 02:10 Temperature 36.6 C Temperature Source Oral Sepsis Recent Fever Within 48 Hours No Sepsis New/Unexplained Change in Mental Status No Sepsis Action Taken by Nursing No Action Required Pulse Rate 86 Pulse Rate [Apical] 86 82 Pulse Rhythm [Apical] Regular Regular Respiratory Rate 22 19 16 Respiratory Effort / Characteristics Non-Labored Spontaneous Non-Labored Spontaneous Respiratory Depth Normal Shallow Normal Respiratory Pattern Regular Regular Blood Pressure 201/91 H Blood Pressure [Right Arm] 192/99 H Blood Pressure Mean 127 Blood Pressure Mean [Right Arm] 130 Blood Pressure Position Sitting Pulse Oximetry 96 98 98 Oxygen Delivery Method Room Air Room Air Room Air VITALS: Vitals are noted on the nurse's note and reviewed by myself. Vital signs hypertensive. GENERAL: White female writhing in pain, in no acute distress, nondiaphoretic, well-developed well-nourished. SKIN: The skin was without rashes, erythema, edema, or bruising. There is no tenting of the skin. Capillary reflex less than 2 seconds. HEAD: Normocephalic atraumatic. EARS: External auditory canals clear EYES: Pupils equal round and reactive to light and accommodation. Conjunctivae without injection, sclerae without icterus. Extraocular movements intact. NOSE: Patent, turbinates without inflammation or discharge. MOUTH: Mucous membranes moist. Pharynx without erythema or exudate. Uvula midline. Airway patent. Tongue does not deviate. NECK: Supple without nuchal rigidity. No lymphadenopathy. No thyromegaly. Cervical spine is nontender. No JVD. HEART: Regular rate and rhythm LUNGS: Clear to auscultation bilaterally without wheezes, rales or rhonchi. No retractions or accessory muscle use. ABDOMEN: Positive bowel sounds x 4. Normal tympanic percussion. Soft, tender to palpation lower abdomen, without masses or organomegaly. Montano sign negative. No guarding or rebound tenderness. No CVA tenderness MUSCULOSKELETAL: No muscle atrophy, erythema, or edema noted. NEURO: Patient was alert and oriented to person place and time. Normal sensation to light and sharp touch. No focal neurological deficits. Course Administered Medications Discontinued Medications Diphenhydramine HCl (Benadryl) 25 mg IV NOW STA Stop: 02/25/19 01:07 Last Admin: 02/25/19 01:15 Dose: 25 mg Documented by: [id number] Hydromorphone HCl (Dilaudid) 0.5 mg IV NOW STA Stop: 02/25/19 01:07 Last Admin: 02/25/19 01:16 Dose: 0.5 mg Documented by: [id number] Hydromorphone HCl (Dilaudid) 0.5 mg IV NOW STA Stop: 02/25/19 02:08 Last Admin: 02/25/19 02:11 Dose: 0.5 mg Documented by: [id number] Sodium Chloride (Nss 1000ml) 1,000 mls @ 999 mls/hr IV .Q1H1M ONE Stop: 02/25/19 02:06 Last Infusion: 02/25/19 02:29 Dose: 0 mls/hr Documented by: [id number] Admin: 02/25/19 01:16 Dose: 999 mls/hr Documented by: [id number] Metoclopramide HCl (Reglan) 10 mg IV NOW STA Stop: 02/25/19 01:07 Last Admin: 02/25/19 01:15 Dose: 10 mg Documented by: [id number] Medical Decision Making Medical Records Attestation: I reviewed the patient's medical records. Home Medications Current Medication List: was personally reviewed by me Laboratory Data Attestation: I reviewed the patient's lab results. Result diagrams: 02/25/19 01:02 02/25/19 01:02 Lab Results 02/25/19 02/25/19 02/25/19 Range/Units 01:02 01:02 01:58 WBC 6.99 (4.8-10.8) K/uL RBC 3.92 L (4.2-5.4) M/uL Hgb 12.6 (12.0-16.0) g/dL Hct 34.5 L (37-47) % MCV 88.0 (80-100) fL MCH 32.1 (25-34) pg MCHC 36.5 H (32-36) g/dL RDW Std Deviation 43.1 (36.4-46.3) fL RDW Coeff of Bj 13.4 (11.5-14.5) % Plt Count 203 (130-400) K/uL MPV 9.9 (7.4-10.4) fL Immature Gran % (Auto) 0.1 % Neut % (Auto) 77.7 % Lymph % (Auto) 13.3 % [place] % (Auto) 7.9 % Eos % (Auto) 0.9 % Baso % (Auto) 0.1 % Immature Gran # (Auto) 0.01 (0.00-0.02) K/uL Neut # (Auto) 5.43 (1.4-6.5) K/uL Lymph # (Auto) 0.93 L (1.2-3.4) K/uL [place] # (Auto) 0.55 (0.11-0.59) K/uL Eos # (Auto) 0.06 (0-0.5) K/uL Baso # (Auto) 0.01 (0-0.2) K/uL Sodium 128 L D (136-145) mmol/L Potassium 3.4 L (3.5-5.1) mmol/L Chloride 95 L (98-107) mmol/L Carbon Dioxide 22 (21-32) mmol/L Anion Gap 11.0 (3-11) BUN 14 D (7-18) mg/dl Creatinine 0.81 (0.6-1.2) mg/dl Est Cr Clr Drug Dosing Not Reportable Est GFR ( Amer) 89.0 Est GFR (Non-Af Amer) 76.8 BUN/Creatinine Ratio 17.2 (10-20) Glucose 153 H (70-99) mg/dl POC Lactic Acid Bladimir 0.74 L (0.90-1.70) mmol/L Calcium 9.2 (8.5-10.1) mg/dl Total Bilirubin 0.4 (0.2-1) mg/dl AST 31 (15-37) U/L ALT 39 (12-78) U/L Alkaline Phosphatase 69 (45-117) U/L Total Protein 7.2 (6.4-8.2) gm/dl Albumin 4.2 (3.4-5.0) gm/dl Globulin 3.0 (2.5-4.0) gm/dl Albumin/Globulin Ratio 1.4 (0.9-2) Lipase 147 (73-393) U/L Imaging Data Attestation: I personally reviewed and interpreted this imaging study as follows : MDM Narrative Prior records/ancillary studies reviewed. Triage Nursing notes reviewed. Additional history obtained from family. The patient's history was concerning for abdominal pain. Differential diagnosis: Etiologies such as acute on chronic abdominal pain, appendicitis, diverticulitis, PUD, biliary pathology, UTI, pancreatitis, obstruction, mesenteric ischemia, aortic pathology, infections, inflammatory bowel disease, renal colic, as well as others were entertained. Physical examination findings: As above. ER treatment provided: Dilaudid, Reglan, Benadryl, IV fluids On reassessment the patient felt better. Diagnostics interpreted by me: The labs revealed no leukocytosis. Stable H&H Imaging studies: CT abd pelvis wo con CLINICAL HISTORY: 63 years-old Female presenting with intermittent obstructive symptoms. TECHNIQUE: Multidetector CT of the abdomen and pelvis was performed without the use of intravenous contrast. IV contrast: None. One or more dose lowering techniques were used consistent with the principles of ALARA (as low as reasonably achievable), including automatic exposure control, mA or kV adjustment to individual patient size, and/or use of iterative reconstruction. COMPARISON: 02/22/2019. CT DOSE (mGy.cm): The estimated cumulative dose is 257.10 mGy.cm. FINDINGS: Rn Supplemental topogram: Unremarkable. Lung bases: Normal heart size. Trace pericardial effusion. No pleural effusion. Minimal dependent changes likely atelectasis. Liver: Normal morphology. Normal liver density. Subcentimeter well-defined hypodense lesion in the right hepatic lobe likely hepatic cyst or hamartoma. Biliary: No intrahepatic or extrahepatic biliary ductal dilatation. Vicarious excretion of contrast in the gallbladder. Pancreas: Normal noncontrast appearance. Spleen: Normal noncontrast appearance. Adrenal glands: Normal noncontrast appearance. Kidneys and ureters: Normal noncontrast appearance. Punctate nonobstructing calculus in the left kidney. No hydronephrosis. Normal ureters. Bladder: Incompletely evaluated secondary to underdistention. Hyperdensity of the bladder lumen consistent with excreted contrast. Pelvic organs: Normal noncontrast appearance. Bowel: Oral contrast has reached the rectum. Mild small bowel wall thickening is suggested in the right lower quadrant allowing for lack of intravenous contrast. No convincing evidence of pathologically distended small bowel to suggest obstruction or partial obstruction. Subtle swirling of the mesentery is nonspecific. Peritoneal cavity: Small volume free fluid in the pelvis, which may be greater than expected for the patient's postmenopausal status. Mild diffuse mesenteric edema. No free intraperitoneal gas. Lymph nodes: No gross lymphadenopathy allowing for noncontrast technique. Vasculature: Normal noncontrast appearance. Abdominal wall: Mild body wall edema. Postsurgical changes suspected in the left inguinal region. No convincing evidence of a hernia. Musculoskeletal: Advanced degenerative changes of the spine. IMPRESSION: 1. Small bowel wall thickening may be present, which could raise concern for an enteritis among other etiologies. No convincing evidence of a high-grade partial or complete bowel obstruction with oral contrast now in the rectum. 2. Mild apparent swirling of the mesentery in the midabdomen is present on the current exam to from prior, although nonspecific given the absence of other evidence for bowel obstruction. If there is continuing concern for volvulus or obstruction, fluoroscopic small bowel follow-through could be obtained. 3. Body wall edema, mesenteric edema and small volume ascites again suggest volume overload. Electronically signed by: Fabricio Marin M.D. 02/23/2019 9:24 AM Consultation: [facility] was discussed and diagnostics were reviewed. The patient was evaluated in the ER for further treatment. Exam and history seem consistent with intractable abdominal pain. Patient was given a few rounds of pain meds. She did not feel comfortable going home. She is requesting admission. Medicine was consulted. She was hydrated and medicated as above. By the evaluation outlined above emergent etiologies such as appendicitis, diverticulitis, PUD, biliary pathology, UTI, pancreatitis, obstruction, mesenteric ischemia, aortic pathology, infections, inflammatory bowel disease, renal colic, as well as others were deemed relatively unlikely. The pt informed about the findings as listed above. All questions were answered and pleased with the treatment. Case reviewed with my attending The chart was completed utilizing [employer] voice recognition software. Grammatical errors, random word insertions, pronoun errors, and incomplete sentences are an occassional consequence of this system due to software limitations, ambient noise, and hardware issues. Any formal questions or concerns about the content, text, or information contained within the body of this dictation should be directly addressed to the physician pathologist assistant for clarification. Impression & Plan Intractable abdominal pain Discharge Plan Visit Data Chief Complaint: Abdominal Pain Stated Complaint: ABD. PAIN ED Provider: Maria [facility] ED Midlevel Provider: Coreen Shirley Discharge Problem: Intractable abdominal pain Patient Disposition: Being Evaluated by Hospitalist Condition: Fair Forms Stand Alone Forms: Call Back Authorization, [facility] Prescriptions Prescriptions: No Action Gwendolyn-D 24 Hour 180-240 mg Tablet Extended Release 24 Hr 1 tab PO PM PRN (Reason: seasonal allergies) RF: 0 bupropion HCl 150 mg tablet sustained-release 12 hr 150 mg PO DAILY RF: 0 cholecalciferol (vitamin D3) [Vitamin D3] 2,000 unit Tablet 2,000 unit PO DAILY RF: 0 hydrochlorothiazide 25 mg Tablet 12.5 mg PO QAM Qty: 30 RF: 1 dicyclomine 10 mg Capsule 10 mg PO BID Qty: 60 RF: 1 Referrals Referrals: PCP,NO [Primary Care Provider] -
[2019-02-25 01:42] LABS: Alanine Aminotransferase 39 U/L (12-78); Albumin Globulin Ratio 1.4 (0.9-2); Albumin Level 4.2 gm/dl (3.4-5.0); Alkaline Phosphatase 69 U/L (45-117); Aspartate Aminotransferase 31 U/L (15-37); BUN Creatinine Ratio 17.2 (10-20); Bilirubin,Total 0.4 mg/dl (0.2-1); Blood Urea Nitrogen 14 mg/dl (7-18); Calcium 9.2 mg/dl (8.5-10.1); Carbon Dioxide 22 mmol/L (21-32); Chloride 95 mmol/L (98-107); Est GFR (Non-African American) 76.8; Glucose 153 mg/dl (70-99); Potassium 3.4 mmol/L (3.5-5.1); Sodium 128 mmol/L (136-145); Total Protein 7.2 gm/dl (6.4-8.2)
[2019-02-25] MEDS ORDERED: ALUMINUM/MAGNESIUM SUSP 72 ML, LIDOCAINE HCL VISCOUS 2% 24 ML, BARCODE IDENTIFIER 1 EA PO PRN (02:59)
[2019-02-25] MEDS ORDERED: HYOSCYAMINE SULFATE 0.125 MG TAB PO PRN (03:01)
--- NOTE | 2019-02-25 03:20 | History & Physical Report ---
Date of Service February 25, 2019 Assessment & Plan (1) Intractable abdominal pain: (2) Status post inguinal hernia repair: (3) Accelerated hypertension: (4) Depression: (5) Spinal stenosis: (6) Hyponatremia: (7) Hypokalemia: (8) DVT prophylaxis: I have ordered Bentyl, GI cocktail every 8, Levsin 0.125, Cardizem 60 mg q. 8 for blood pressure and possibly help with smooth muscle relaxation and pain control, IV fluids with potassium, possibly we should consider a capsule e ndoscopy as an outpatient. I have consulted and GI and surgery. Morphine IV for pain control, and heating pad. I have given permission to Dr. Alex Romo, the patient's son-in-law and GI physician to review the chart. ROS-No Headache, No Visual Changes, No Nausea, No Vomiting, No Fever, No Chills, No Neck Pain or Stiffness, No Chest Pain, No Palpitations, No SOB, No NOVA, No Cough, No Sputum, No Wheezing, positive severe intermittent abdominal Pain, positive diarrhea, No Hematemesis, No Hemoptysis, No Unexpected Weight Loss, No Flank pain, No Melena, No Hematochezia, No Frequency, No Urgency, No Burning, No Hematuria, No Rashes, No Diaphoresis. Appetite is poor Physical Exam Gen-AAO x 3, moderate to severe pain, Afebrile, cooperative Head-NCAT, EOMI, PERRLA, Anicteric Sclera, No Posterior Pharyngeal Erythema Neck-Supple, No JVD, No Thyromegaly, No Masses, No LAD, No Bruits Lungs-Clear to Auscultation Bilaterally, No Rales, No Rhonchi, No Wheezing, No Crepitus Chest-No S4, +S1, +S2, No S3, No Murmurs, No Rubs, No Gallops, No Ectopy Abdomen-Soft, Bowel Sounds Present, Tender, Non Distended, No Hepatomegaly, No Splenomegaly, No Palpable Masses, No Rebound, No Rigidity, positive guarding Musculoskeletal-Full Range of Motion Bilaterally, No CVAT Extremities-No Cyanosis, No Clubbing, No Edema Nuero-Cranial Nerves II-XII grossly intact, Motor WNL, DTRs WNL, Strength WNL, Non Focal Psych-Normal Mood History of Present Illness 63-year-old female with a past medical history of spinal stenosis, intractable abdominal pain who was discharged yesterday after an extensive work-up for her intermittent severe abdominal pain. She was evaluated by GI and surgery and consultation with radiology found no etiology for her abdominal pain. Was sent home yesterday and had periods of severe abdominal pain and periods of feeling fine. She and her feel that her abdominal pain is getting worse in nature she does have it today came back to the emergency room for further evaluation. Spoke to the and daughter at the bedside at the case and will bring her back in for further evaluation. Primary Care Provider: NO PCP Allergies Allergy/AdvReac Type Severity Reaction Status Date / Time No Known Allergies Allergy Unverified 02/25/19 01:40 Home Medications Home Medications Medication Instructions Recorded Confirmed Type Gwendolyn-D 24 Hour 1 tab PO PM PRN 02/22/19 02/25/19 History bupropion HCl 150 mg PO DAILY 02/22/19 02/25/19 History cholecalciferol (vitamin D3) 2,000 unit PO DAILY 02/22/19 02/25/19 History [Vitamin D3] dicyclomine 10 mg PO BID #60 cap 02/24/19 02/25/19 Rx hydrochlorothiazide 12.5 mg PO QAM #30 tab 02/24/19 02/25/19 Rx Past Med/Surg History Medical History Depression (Chronic) Spinal stenosis (Chronic) Intractable abdominal pain (Acute) Surgical History H/O hernia repair (Resolved) History of hand surgery (Chronic) History of lumpectomy (Chronic) History of shoulder surgery (Chronic) Family History Other Colonic polyp Social History Preferred Language: Mohawk Communication Ability: Effective Beliefs That Will Affect Care: None Current Living Situation: Spouse Feels Safe at Home: Yes Smoking Status: Never smoker Hx Alcohol Use: Yes Alcohol type: wine Alcohol type Comment: socially Hx Substance Use: No Results & Data Vital Signs (Past 12 Hours) Vital Signs Temp Pulse Pulse Resp BP BP Pulse Ox 02/25/19 02:10 82 16 192/99 H 98 02/25/19 01:19 86 19 98 02/25/19 00:48 36.6 C 86 22 201/91 H 96 Allergies No Known Allergies Allergy (Unverified 02/25/19 01:40) Chemistry 02/25/19 01:02 Sodium 128 L D Potassium 3.4 L Chloride 95 L Carbon Dioxide 22 Anion Gap 11.0 BUN 14 D Creatinine 0.81 Glucose 153 H
[2019-02-25] MEDS: MoRPHine SULFATE 4 MG/ML 1 ML CARP\\VIAL IV PRN ×2 (03:26→12:21)
[2019-02-25] MEDS ORDERED: ONDANSETRON INJ 2 MG/ML 2 ML VIAL IV PRN ×2 (04:11→13:38)
[2019-02-25] MEDS: SODIUM CHLORIDE 0.9% 1000ML 1,000 ML IV SCH ×2 (04:44→13:00)
[2019-02-25] MEDS: POTASSIUM CHLORIDE / WTR 10 MEQ/100 ML PLCT IV SCH ×3 (05:22→07:30)
[2019-02-25] MEDS: ACETAMINOPHEN 325 MG TAB PO PRN ×2 (05:28→09:53)
[2019-02-25 06:55] LABS: Appearance Urine Clear (Clear); Bilirubin Urine Negative (Negative); Blood Urine Negative (Negative); Color Urine Yellow; Glucose Urine UA Negative (Negative); Ketones Urine Negative (Negative); Leukocyte Esterase Urine Negative (Negative); Nitrite Urine Negative (Negative); Protein Urine Negative (Negative); Specific Gravity Urine 1.011 (1.000-1.030); Urobilinogen Urine Negative (Negative); pH Urine 7.5 (4.5-7.5)
[2019-02-25 07:00] LABS: Hematocrit (blood only) 36.6 % (37-47); Hemoglobin 12.9 g/dL (12.0-16.0); Mean Corpuscular Hgb Conc 35.2 g/dL (32-36); Mean Corpuscular Volume 89.3 fL (80-100); Mean Platelet Volume 9.7 fL (7.4-10.4); Platelet Count 199 K/uL (130-400); RDW Coefficient of Variation 13.4 % (11.5-14.5); RDW Standard Deviation 44.1 fL (36.4-46.3); White Blood Count 5.59 K/uL (4.8-10.8)
[2019-02-25 07:11] LABS: Prothrombin Time 10.3 Seconds (9.0-12.0)
[2019-02-25 07:34] LABS: BUN Creatinine Ratio 13.1 (10-20); Calcium 8.5 mg/dl (8.5-10.1); Creatinine Clr Calc Pharmacy 67.8 ml/min; Est GFR (African American) 100.9; Potassium 3.8 mmol/L (3.5-5.1)
[2019-02-25 07:37] LABS: Albumin Globulin Ratio 1.3 (0.9-2); Bilirubin,Total 0.6 mg/dl (0.2-1)
[2019-02-25] MEDS ORDERED: HEPARIN SOD 5,000 UNIT/0.5 ML VIAL SQ SCH (08:15)
[2019-02-25] MEDS ORDERED: CHOLECALCIFEROL 1,000 UNITS TAB PO SCH (09:00)
[2019-02-25] MEDS ORDERED: BuPROPion SR 150 MG TABCR PO SCH (09:00)
[2019-02-25] MEDS: DICYCLOMINE HCL 10 MG CAP PO SCH ×2 (09:01→12:52)
[2019-02-25] MEDS ORDERED: HYOSCYAMINE SULFATE 0.125 MG TAB SL STA (09:34)
--- NOTE | 2019-02-25 09:43 | History & Physical Report ---
Date of Service February 25, 2019 Assessment & Plan (1) Intractable abdominal pain: Patient with left-sided abdominal discomfort post hernia repair. I have ordered KUB to look for evidence of constipation. We could try an alternate antispasmodic as the patient did not do well with Bentyl in the past. I placed an order for Levsin to see if this might improve her symptoms. Perhaps the patient's symptoms are related to nerve entrapment (inguinal nerve pain or perhaps Osteitis pubica), if the KUB is negative and surgical evaluation negative perhaps she would benefit from a pain management consultation to consider injection therapy. (2) Status post inguinal hernia repair: History of Present Illness Chief Complaint: Abdominal pain Primary Care Provider: NO PCP 63-year-old female who was admitted to the hospital several days ago for evaluation of abdominal discomfort. The abdominal pain localizes to her left hand side and is been ongoing since a hernia repair done in January of this year by a surgeon in [place]. The patient notes that she has had ongoing discomfort since the surgical procedure which seems to wax and wane in intensity. She was seen on several occasions by her surgeon who felt that there was no surgical issue at this point in time. She does have a long history of spinal stenosis and what appears to be chronic constipation. She underwent a small bowel follow-through the other day which showed no evidence of an obstructive process. She does admit to having regular bowel movements and reports having a prior colonoscopy by [facility] about 6 months ago. Allergies Allergy/AdvReac Type Severity Reaction Status Date / Time No Known Allergies Allergy Unverified 02/25/19 01:40 Home Medications Home Medications Medication Instructions Recorded Confirmed Type Gwendolyn-D 24 Hour 1 tab PO PM PRN 02/22/19 02/25/19 History bupropion HCl 150 mg PO DAILY 02/22/19 02/25/19 History cholecalciferol (vitamin D3) 2,000 unit PO DAILY 02/22/19 02/25/19 History [Vitamin D3] dicyclomine 10 mg PO BID #60 cap 02/24/19 02/25/19 Rx hydrochlorothiazide 12.5 mg PO QAM #30 tab 02/24/19 02/25/19 Rx Past Med/Surg History Medical History Depression (Chronic) Spinal stenosis (Chronic) Intractable abdominal pain (Acute) Surgical History H/O hernia repair (Resolved) History of hand surgery (Chronic) History of lumpectomy (Chronic) History of shoulder surgery (Chronic) Family History Other Colonic polyp Social History Preferred Language: Andorran Communication Ability: Effective 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: No Beliefs That Will Affect Care: None Current Living Situation: Spouse Other Information That Helps Us Care for You: No Feels Safe at Home: Yes Safety Concerns: Feels Safe At This Time Smoking Status: Never smoker Hx Alcohol Use: Yes Alcohol type: wine Alcohol type Comment: socially Hx Substance Use: No Review of Systems + malaise; no sweats and no weight loss no diplopia no ear pain no change in sputum, no hemoptysis, no snoring and no wheezing no chest pain with activity and no dyspnea at rest + abdominal pain, + bloating, + nausea and + cramping; no early satiety and no h ematemesis no urinary frequency and no urinary incontinence no radicular pain no paralysis no cold intolerance no coagulopathy Physical Exam Constitutional: well developed; not ill appearing Eyes: PERRL, conjunctivae normal, anicteric sclerae Neck: trachea midline, no thyromegaly Respiratory: normal respiratory effort, lungs clear to auscultation Cardiovascular: Rate/Rhythm: regular rate and regular rhythm Gastrointestinal (Abdomen): Inspection/Auscultation: abdomen not distended Percussion/Palpation: + abdomen tender and abdomen soft Tender to palpation in the left lower quadrant Musculoskeletal: Head/Neck/Chest: normocephalic Skin: no lesions and no jaundice Neurologic: no focal motor deficits and not confused Results & Data Vital Signs (Past 12 Hours) Vital Signs Temp Pulse Pulse Resp BP BP Pulse Ox 02/25/19 07:25 37.1 C 90 16 161/84 H 98 02/25/19 04:54 36.8 C 90 18 180/91 H 95 02/25/19 03:52 84 16 184/101 H 99 02/25/19 02:10 82 16 192/99 H 98 02/25/19 01:19 86 19 98 02/25/19 00:48 36.6 C 86 22 201/91 H 96 Laboratory Results Laboratory Results - last 24 hr 02/25/19 02/25/19 02/25/19 01:02 01:02 01:58 WBC 6.99 RBC 3.92 L Hgb 12.6 Hct 34.5 L MCV 88.0 MCH 32.1 MCHC 36.5 H RDW Std Deviation 43.1 RDW Coeff of Bj 13.4 Plt Count 203 MPV 9.9 Immature Gran % (Auto) 0.1 Neut % (Auto) 77.7 Lymph % (Auto) 13.3 [place] % (Auto) 7.9 Eos % (Auto) 0.9 Baso % (Auto) 0.1 Immature Gran # (Auto) 0.01 Neut # (Auto) 5.43 Lymph # (Auto) 0.93 L [place] # (Auto) 0.55 Eos # (Auto) 0.06 Baso # (Auto) 0.01 PT INR Sodium 128 L D Potassium 3.4 L Chloride 95 L Carbon Dioxide 22 Anion Gap 11.0 BUN 14 D Creatinine 0.81 Est Cr Clr Drug Dosing Not Reportable Est GFR ( Amer) 89.0 Est GFR (Non-Af Amer) 76.8 BUN/Creatinine Ratio 17.2 Glucose 153 H POC Lactic Acid Bladimir 0.74 L Calcium 9.2 Total Bilirubin 0.4 AST 31 ALT 39 Alkaline Phosphatase 69 Total Protein 7.2 Albumin 4.2 Globulin 3.0 Albumin/Globulin Ratio 1.4 Lipase 147 Urine Color Urine Appearance Urine pH Ur Specific [place] Urine Protein Urine Glucose (UA) Urine Ketones Urine Blood Urine Nitrite Urine Bilirubin Urine Urobilinogen Ur Leukocyte Esterase 02/25/19 02/25/19 02/25/19 06:48 06:48 06:48 WBC 5.59 RBC 4.10 L Hgb 12.9 Hct 36.6 L MCV 89.3 MCH 31.5 MCHC 35.2 RDW Std Deviation 44.1 RDW Coeff of Bj 13.4 Plt Count 199 MPV 9.7 Immature Gran % (Auto) Neut % (Auto) Lymph % (Auto) [place] % (Auto) Eos % (Auto) Baso % (Auto) Immature Gran # (Auto) Neut # (Auto) Lymph # (Auto) [place] # (Auto) Eos # (Auto) Baso # (Auto) PT 10.3 INR 1.0 Sodium 128 L Potassium 3.8 Chloride 95 L Carbon Dioxide 25 Anion Gap 8.0 BUN 10 Creatinine 0.73 Est Cr Clr Drug Dosing 67.8 Est GFR ( Amer) 100.9 Est GFR (Non-Af Amer) 87.0 BUN/Creatinine Ratio 13.1 Glucose 136 H POC Lactic Acid Bladimir Calcium 8.5 Total Bilirubin 0.6 AST 28 ALT 38 Alkaline Phosphatase 69 Total Protein 7.0 Albumin 4.0 Globulin 3.0 Albumin/Globulin Ratio 1.3 Lipase Urine Color Urine Appearance Urine pH Ur Specific [place] Urine Protein Urine Glucose (UA) Urine Ketones Urine Blood Urine Nitrite Urine Bilirubin Urine Urobilinogen Ur Leukocyte Esterase 02/25/19 Unknown WBC RBC Hgb Hct MCV MCH MCHC RDW Std Deviation RDW Coeff of Bj Plt Count MPV Immature Gran % (Auto) Neut % (Auto) Lymph % (Auto) [place] % (Auto) Eos % (Auto) Baso % (Auto) Immature Gran # (Auto) Neut # (Auto) Lymph # (Auto) [place] # (Auto) Eos # (Auto) Baso # (Auto) PT INR Sodium Potassium Chloride Carbon Dioxide Anion Gap BUN Creatinine Est Cr Clr Drug Dosing Est GFR ( Amer) Est GFR (Non-Af Amer) BUN/Creatinine Ratio Glucose POC Lactic Acid Bladimir Calcium Total Bilirubin AST ALT Alkaline Phosphatase Total Protein Albumin Globulin Albumin/Globulin Ratio Lipase Urine Color Yellow Urine Appearance Clear Urine pH 7.[address] 1.011 Urine Protein Negative Urine Glucose (UA) Negative Urine Ketones Negative Urine Blood Negative Urine Nitrite Negative Urine Bilirubin Negative Urine Urobilinogen Negative Ur Leukocyte Esterase Negative
--- NOTE | 2019-02-25 10:35 | XRay Report ---
XR KUB/Abdomen 1 view CLINICAL HISTORY: Constipation COMPARISON STUDY: 02/24/2019 FINDINGS: There is no pathologic bowel dilatation. There is contrast from a prior small bowel series within nondilated colon. There is no evidence for fecal retention. IMPRESSION: 1. Contrast within nondilated colon 2. No evidence of bowel obstruction Electronically signed by: Aston Matos M.D. 02/25/2019 10:33 AM
[2019-02-25] MEDS ORDERED: OPTIRAY 320 125ml IV PRN (11:53)
--- NOTE | 2019-02-25 12:32 | CT Scan Report ---
CT angio abdomen pelvis w con CT DOSE: 523.21 mGy.cm CLINICAL HISTORY: recurrent abd pain TECHNIQUE: The patient was prepped with a review, but vomited the prepped. The patient was scanned in a dynamic helical fashion during intravenous administration of 119 cc of Optiray 320. Arterial phase and portal phase imaging was performed. MIP imaging was acquired. A dose lowering technique was uti lized adhering to the principles of ALARA. COMPARISON STUDY: 02/23/2019 FINDINGS: The visualized portions of the lung bases are unremarkable. There is a 5 mm right lobe hepatic cyst. No pancreatic masses are visualized. No adrenal masses are visualized. No renal masses are visualized. There are no abnormal pelvic masses. There is no evidence for abdominal aortic aneurysm. There is no evidence for celiac or superior mesenteric artery stenosis. There is no evidence for renal artery stenosis. The inferior mesenteric artery is patent. There is no evidence for iliac artery stenosis. There is no evidence for portal venous gas. There is no evidence for portal vein thrombosis or superi or mesenteric artery thrombosis. There is no acute diverticulitis. The appendix appears normal. There is minimal ascites present. There are mildly dilated small bowel loops, demonstrating a small bowel feces sign. There is a left m id abdominal transition zone. There is contrast within the colon secondary to a prior small bowel fol low-through. IMPRESSION: 1. No evidence of aortic aneurysm or aortic or iliac artery stenosis 2. No evidence of superior mesenteric, celiac, renal, or inferior mesenteric artery stenosis 3. No CT evidence of portal venous thrombosis or portal venous gas 4. Low volume ascites 5. Dilated small bowel loops with a small bowel feces sign. Left mid abdominal transition zone, just below the level of the iliac crests. The findings are consistent with a partial small bowel obstructi on. No mass is delineated. The etiology of the obstruction, is therefore most likely secondary to an adhesion or internal hernia. Electronically signed by: Aston Matos M.D. 02/25/2019 12:31 PM
[2019-02-25] MEDS ORDERED: SODIUM CHLORIDE 0.9% 1000ML 1,000 ML IV SCH (12:45)
[2019-02-25] MEDS: dilTIAZem HCL 30 MG TAB PO SCH (12:52)
--- NOTE | 2019-02-25 13:24 | Surgery Progress Note ---
Date of Service February 25, 2019 Assessment & Plan (1) Intractable abdominal pain: ct scan this am shows partial bowel obstruction left lower quadrant discussed with radiology etiology adhesion, int hernia at this time rec laparoscopy diagnostic possible laparotomy bowel resection we have exhausted non intervential exam and pt still with intermittent symp discussed with pt and and Dr Romo will plan for OR now r and c explained to them Subjective still has intermittent cramping sharp abd pain reports emesis but not confirmed by nurses Review of Systems Review of Systems: since d/c yesterday readmitted last night with pain emesis laying on right side Physical Exam Constitutional: alert coherent Gastrointestinal (Abdomen): not didtened no loc tenderness generalized guarding Results & Data Vital Signs (Past 12 Hours) Vital Signs Temp Pulse Resp BP Pulse Ox 02/25/19 07:25 37.1 C 90 16 161/84 H 98 02/25/19 04:54 36.8 C 90 18 180/91 H 95 02/25/19 03:52 84 16 184/101 H 99 02/25/19 02:10 82 16 192/99 H 98 02/25/19 01:19 86 19 98
[2019-02-25] MEDS ORDERED: BUPIVACAINE 0.5 % 5 MG/1 ML MPF 30ML VIAL ONE (13:30)
--- NOTE | 2019-02-25 13:35 | Anesthesiology Consultation ---
Date of Service February 25, 2019 Assessment & Plan Chart Review Chart Review: Acceptable Risk for Surgery Consults Requested none History Surgery Operation Date: 02/25/19 13:30 Proposed Procedures p Exploratory laparoscopy, possible laparotomy - Ke Phan MD Height/Weight Height: 5 ft 6 in Weight: 55.2 kg Allergies Allergy/AdvReac Type Severity Reaction Status Date / Time No Known Allergies Allergy Unverified 02/25/19 01:40 Medications Home Medications Medication Instructions Recorded Confirmed Last Taken Gwendolyn-D 24 Hour 1 tab PO PM PRN 02/22/19 02/25/19 02/20/19 bupropion HCl 150 mg PO DAILY 02/22/19 02/25/19 Unknown cholecalciferol (vitamin D3) 2,000 unit PO DAILY 02/22/19 02/25/19 Unknown [Vitamin D3] dicyclomine 10 mg PO BID #60 cap 02/24/19 02/25/19 Unknown hydrochlorothiazide 12.5 mg PO QAM #30 tab 02/24/19 02/25/19 Unknown Active Medications Generic Name Dose Route Start Last Admin Trade Name Freq PRN Reason Stop Dose Admin Acetaminophen 650 mg 02/25/19 04:11 02/25/19 09:53 Tylenol PO 03/27/19 04:10 650 mg Q4H PRN Administration pain/fever Bupropion HCl 150 mg 02/25/19 09:00 02/25/19 09:02 Wellbutrin-Sr PO 03/27/19 08:59 150 mg DAILY ANNEL Administration Dicyclomine HCl 10 mg 02/25/19 09:00 02/25/19 12:52 Bentyl PO 03/27/19 08:59 Not Given QID ANNEL Diltiazem HCl 30 mg 02/25/19 09:00 02/25/19 12:52 Cardizem PO 03/27/19 08:59 Not Given TID ANNEL Sodium Chloride 1,000 mls @ 100 mls/hr 02/25/19 04:11 02/25/19 13:00 Nss 1000ml IV 03/27/19 04:10 Not Given .Q10H ANNEL Sodium Chloride 1,000 mls @ 125 mls/hr 02/25/19 12:45 02/25/19 12:52 Nss 1000ml IV 02/26/19 04:44 125 mls/hr .Q8H ANNEL Administration Ioversol 119 ml 02/25/19 11:53 02/25/19 11:53 Optiray 320 125ml IV 03/01/19 11:52 119 ml ONCE PRN Administration Interaction Checking Morphine Sulfate 4 mg 02/25/19 03:02 02/25/19 12:21 Morphine Sulfate IV 03/11/19 03:01 4 mg Q4H PRN Administration Pain Vitamin D 2,000 units 02/25/19 09:00 02/25/19 09:02 Vitamin D3 PO 03/27/19 08:59 2,000 units DAILY ANNEL Administration Past Medical History Medical History Depression (Chronic) Spinal stenosis (Chronic) Intractable abdominal pain (Acute) Past Family History Family History Other Colonic polyp Past Surgical History Surgical History H/O hernia repair (Resolved) History of hand surgery (Chronic) History of lumpectomy (Chronic) History of shoulder surgery (Chronic) Social History Smoking Status: Never smoker Hx Alcohol Use: Yes Alcohol type: wine alcohol intake frequency: a few times a week Hx Substance Use: No substance use type: does not use Physical Exam Vital Signs Last Vital Signs Temp 37.1 C 02/25/19 07:25 Pulse 90 02/25/19 07:25 Resp 16 02/25/19 07:25 BP 161/84 H 02/25/19 07:25 Pulse Ox 98 02/25/19 07:25 Testing Laboratory Results 02/25/19 06:48 02/25/19 06:48 PT 10.3 Seconds (9.0-12.0) 02/25/19 06:48 INR 1.0 (0.9-1.1) 02/25/19 06:48 Urine Color Yellow 02/25/19 Unknown Urine Appearance Clear (Clear) 02/25/19 Unknown Urine pH 7.5 (4.5-7.5) 02/25/19 Unknown Ur Specific [place] 1.011 (1.000-1.030) 02/25/19 Unknown Urine Protein Negative (Negative) 02/25/19 Unknown Urine Glucose (UA) Negative (Negative) 02/25/19 Unknown Urine Ketones Negative (Negative) 02/25/19 Unknown Urine Nitrite Negative (Negative) 02/25/19 Unknown Ur Leukocyte Esterase Negative (Negative) 02/25/19 Unknown
[2019-02-25] MEDS ORDERED: PROMETHAZINE HCL 12.5 MG in SODIUM CHLORIDE 0.9% 50 ML IV PRN (13:38)
[2019-02-25] MEDS ORDERED: DEXAMETHASONE SOD INJ 4 MG/ML VIAL IV PRN (13:38)
[2019-02-25] MEDS ORDERED: ATROPINE SULFATE 0.1 MG/ML 10ML SYR IV PRN (13:38)
[2019-02-25] MEDS ORDERED: METOCLOPRAMIDE HCL INJ 5 MG/ML 2 ML VIAL IV PRN (13:38)
[2019-02-25] MEDS ORDERED: HYDROmorphone INJ 2 MG/ML SYR/VIAL IV PRN (13:38)
[2019-02-25] MEDS ORDERED: ePHEDrine sulfate 50 MG/ML AMP IV PRN (13:38)
[2019-02-25] MEDS ORDERED: DEXAMETHASONE SOD INJ 4 MG/ML VIAL ONE (13:39)
[2019-02-25] MEDS ORDERED: LIDOCAINE HCL 2% 2 ML VIAL/AMP(20MG/ML) INFIL ONE (13:39)
[2019-02-25] MEDS ORDERED: PROPOFOL IV EMULSION 10 MG/ML 20 ML VIAL IV ONE (13:39)
[2019-02-25] MEDS ORDERED: ROCURONIUM BROMIDE 10 MG/ML 5 ML VIAL ONE (13:39)
[2019-02-25] MEDS ORDERED: ONDANSETRON INJ 2 MG/ML 2 ML VIAL ONE (13:39)
[2019-02-25] MEDS ORDERED: fentaNYL citrate 100 MCG/2 ML VIAL ONE ×3 (13:40→16:15)
[2019-02-25] MEDS ORDERED: ACETAMINOPHEN 1000 MG/100 ML IV IV ONE (13:47)
--- NOTE | 2019-02-25 15:40 | Post Operative Brief Note ---
Immediate Post Op Note v1 Date of Surgery February 25, 2019 Pre & Post Diagnosis Operation Date: 02/25/19 13:30 Pre-Op Diagnosis: Intractable abdominal pain Post-Op Diagnosis: Bowel obstruction secondary to adhesion and suture Procedure Operation Date: 02/25/19 13:30 Actual Procedures p Exploratory laparotomy, lysis of adhesions, excision of suture, closure of enterotomy - Ke Phan MD Surgeon Ke Phan MD Devulcanizer Operator edison [place]ar[place] Estimated Blood Loss 25 Findings Consistent with Post-Op Diagnosis Drains Gaspar Catheter (16fr gaspar catheter placed without difficulty, gaspar demonstrates clear yellow urine. Output measured and recorded by anesthesia.)
[2019-02-25] MEDS: fentaNYL citrate 100 MCG/2 ML VIAL IV PRN ×2 (16:10→16:17)
--- NOTE | 2019-02-25 16:23 | Operative Report ---
Post Operative Report Pre & Post Diagnosis Operation Date: 02/25/19 13:30 Pre-Op Diagnosis: Intractable abdominal pain Post-Op Diagnosis: Bowel obstruction secondary to adhesion and suture Procedure Operation Date: 02/25/19 13:30 Actual Procedures p Exploratory laparotomy, lysis of adhesions, excision of suture, closure of enterotomy - Ke Phan MD Patient was brought into the operating theater general anesthesia supine position Roche catheter inserted abdomen prepped Betadine solution properly draped systemic antibiotics given patient identified made a small incision through the previous supraumbilical incision that the patient had deep with subcutaneous tissue went to the abdominal wall cut into the fascia and entered without any problem 0 Vicryl suture was used as a pursestring around the fascia to control a 5 mm trocar and it was inserted under direct visualization CO2 insufflated this point time was inserted attention was turned in the left lower quadrant where we could see a dimpling in the direct defect of her hernia this was about 2 cm in size as we further inspected the area I could see that there was mesh deep to this direct weakness and no true deep cavity was appreciated the other noticeable flank was that the patient had a suture that appeared to be's from the peritoneum and the indirect area possibly internal ring down to the mesentery of the small bowel coming across the small bowel we also been noticed that the patient had a very small right indirect hernia at this point we cut the suture that was from the abdominal wall and we are able to free up that loop of bowel that was underneath it we will later retrieve the rest of the suture from the mesentery of the loop but her attention was started in the proximal small bowel towards the ligament of Treitz we saw a thick adhesive band coming from the sigmoid colon going towards the mesentery of the transverse colon this was quite prominent but did not feel that there is anything any obstruction caused by this it was quite mobile but we did resected clipping proximally and distally. We then visualized the ligament of Treitz by identifying the aorta and then milking our way through the ligament of Treitz throughout the small bowel we really did not see any other bands infection distal jejunal area proximal and small bowel the small caliber of the small bowel was very thinned out we at this point as we were mobilizing it identified there is a small opening in the cyst in the small bowel having found this and due to the friability and of the integrity of the thin-walled I elected to this point convert to an open procedure made about 2-1/2 inch incision in the lower midline and was able to identify this loop and sutured transversely with 3 interrupted 3 oh silks in a 2 layer fashion we then continued with her mobilization and milking the small bowel and distal to that we were able to identify multiple areas of thick intraluminal contents almost fiber in nature we were able then to milk these pretty much through into the colonic area. Actually when we had milk this up we then got into the loop of small bowel that had contained the suture and it seemed to be laying possibly as a granuloma right into the mesentery of the small bowel whether or not it was a tail of the suture there was from the abdominal wall and lingered and inside and became a granuloma some not sure the area was then irrigated for copiously and then I closed the peritoneum over the direct defect in the left side with #1 chromic suture. The abdomen was then closed after placing a 19 Ayden round through a stab wound that we have created in the right upper quadrant down into the pelvic area attached to skin edge of the 2-0 silk suture we used chromic to close the peritoneum in the lower midline and interrupted #1 PDS for the fascia similarly interrupted PDS was used to close the supra umbilical incision gabrielle for skin edges dressing was applied to the procedure was tolerated well by the patient estimated blood loss about 25 cc patient was taken recovery room in good condition note the suture that we took out had a Vicryl type of consistency we did send it to the lab.Edison Mercado was present throughout the procedure and helped with exposure manipulation of the instrument camera work and wound closure Surgeon Ke Phan MD Federal Agent edison [place] Estimated Blood Loss 25 Findings Consistent with Post-Op Diagnosis Specimens suture Description of Procedure merda I attest to the content of the Intraoperative Record and any orders documented therein. Any exceptions are noted below.
--- NOTE | 2019-02-25 16:24 | Anesthesiology Progress Note ---
Date of Service February 25, 2019 Anesthesia Post Procedure Vital Signs Vital Signs: Temp Pulse Pulse Resp BP BP Pulse Ox 02/25/19 16:20 70 14 155/83 H 99 02/25/19 16:16 71 17 97 02/25/19 16:15 71 15 163/87 H 97 02/25/19 16:11 81 17 147/76 H 98 02/25/19 16:10 83 17 97 02/25/19 16:06 83 20 100 02/25/19 16:05 87 20 126/83 97 02/25/19 16:00 87 24 147/89 H 98 02/25/19 15:59 80 20 164/94 H 99 02/25/19 15:57 36.4 C L 88 92 H 15 164/94 H 99 02/25/19 07:25 37.1 C 90 16 161/84 H 98 02/25/19 04:54 36.8 C 90 18 180/91 H 95 02/25/19 03:52 84 16 184/101 H 99 02/25/19 02:10 82 16 192/99 H 98 02/25/19 01:19 86 19 98 02/25/19 00:48 36.6 C 86 22 201/91 H 96 Pain Intensity Abdomen: Pain Intensity: 6 Transfer of Care Handoff Completed per policy Notes Mental Status: alert / awake / arousable and participated in evaluation Patient Amnestic to Procedure: Yes Nausea / Vomiting: adequately controlled Pain: adequately controlled Airway Patency, RR, SpO2: stable & adequate BP & HR: stable & adequate Hydration State: stable & adequate Anesthetic Complications: no major complications apparent
[2019-02-25] MEDS ORDERED: MoRPHine SULFATE 2 MG/ML CARP IV PRN (16:58)
[2019-02-25] MEDS ORDERED: MoRPHine SULFATE 4 MG/ML 1 ML CARP\\VIAL IV PRN (16:58)
[2019-02-25] MEDS: ACETAMINOPHEN 65 ML IV SCH (17:23)
[2019-02-25] MEDS ORDERED: NEOSTIGMINE METHYLSULFATE 5 MG/5 ML SYR ONE (18:07)
[2019-02-25] MEDS ORDERED: GLYCOPYRROLATE 0.2 MG/ML VIAL ONE (18:07)
[2019-02-25] MEDS: LACTATED RINGER'S 1,000 ML IV SCH (18:52)
[2019-02-25] MEDS: cefOXitin 2,000 MG in DEXTROSE 5% 50 ML IV SCH (20:11)
[2019-02-25] MEDS ORDERED: HYOSCYAMINE SULFATE 0.125 MG TAB SL SCH (21:00)
[2019-02-25] MEDS: HEPARIN SOD 5,000 UNIT/0.5 ML VIAL SQ SCH (21:32)
--- NOTE | 2019-02-25 22:36 | Hospitalist Progress Note ---
Date of Service February 25, 2019 Assessment & Plan (1) Intractable abdominal pain: post-op pain with hernia surgery 3 weeks ago, repeat CT today reveals a partial SBO. [facility] is aware and taking her to the OR. (2) Status post inguinal hernia repair: (3) Depression: stable, take home medications. (4) HTN (hypertension): Recently started on HCTZ yesterday while was held on readmission 2/2 worsened pain and low potassium and sodium. She is around goal, cont to hold for now. (5) DVT prophylaxis: heparin Full Code Dispo-cont hospitalization pending surgical recommendations. Cecilia Brown DO [facility] Hospitalist Subjective Examined patient pre-operatively , and she was in bad pain. Exam was limited 2/2 this. She is not able to eat and is requiring IV pain medications. Review of Systems Review of Systems: Other (limited as patient is fatigued and not feeling well. ) Physical Exam Physical Exam: CONSTITUTIONAL: WNWD, vitals as above, generally ill- appearing, guarding abdomen, lethargic from pain medication RESPIRATORY: normal respiratory effort CARDIOVASCULAR: no edema GASTROINTESTINAL: soft, diffusely tender, nondistended MUSCULOSKELETAL: gneralized weakness SKIN: warm and dry NEUROLOGIC: no gross focal deficits. PSYCHIATRIC: alert cooperative and oriented to person, place and time. Results & Data Vital Signs (Past 12 Hours) Vital Signs Temp Pulse Pulse Resp BP BP Pulse Ox 02/25/19 07:25 37.1 C 90 16 161/84 H 98 02/25/19 04:54 36.8 C 90 18 180/91 H 95 02/25/19 03:52 84 16 184/101 H 99 02/25/19 02:10 82 16 192/99 H 98 02/25/19 01:19 86 19 98 02/25/19 00:48 36.6 C 86 22 201/91 H 96 Laboratory Results Short CBC 02/25/19 02/25/19 Range/Units 01:02 06:48 WBC 6.99 5.59 (4.8-10.8) K/uL Hgb 12.6 12.9 (12.0-16.0) g/dL Hct 34.5 L 36.6 L (37-47) % Plt Count 203 199 (130-400) K/uL BMP 02/25/19 02/25/19 01:02 06:48 Sodium 128 L D 128 L Potassium 3.4 L 3.8 Chloride 95 L 95 L Carbon Dioxide 22 25 BUN 14 D 10 Creatinine 0.81 0.73 Glucose 153 H 136 H Calcium 9.2 8.5 Liver Function 02/25/19 02/25/19 Range/Units 01:02 06:48 Total Bilirubin 0.4 0.6 (0.2-1) mg/dl AST 31 28 (15-37) U/L ALT 39 38 (12-78) U/L Alkaline Phosphatase 69 69 (45-117) U/L Albumin 4.2 4.0 (3.4-5.0) gm/dl Urine 02/25/19 Range/Units Unknown Urine Color Yellow Urine Appearance Clear (Clear) Urine pH 7.5 (4.5-7.5) Ur Specific [place] 1.011 (1.000-1.030) Urine Protein Negative (Negative) Urine Glucose (UA) Negative (Negative) Medications Administered Current Inpatient Medications Heparin Sodium (Porcine) (Heparin Sodium (Porcine)) 5,000 units SQ Q12 [facility] Stop: 03/27/19 21:59 Last Admin: 02/25/19 21:32 Dose: 5,000 units Documented by: Acetaminophen (Ofirmev) 65 mls @ 200 mls/hr IV Q8H [facility] Stop: 03/27/19 16:14 Last Admin: 02/25/19 17:23 Dose: Not Given Documented by: Cefoxitin Sodium 2,000 mg/ (Dextrose) 60 mls @ 100 mls/hr IV Q6H [facility] Stop: 02/27/19 19:59 Last Infusion: 02/25/19 22:37 Dose: Infused Documented by: Lactated Ringer's (Lr) 1,000 mls @ 125 mls/hr IV .Q8H [facility] Stop: 03/27/19 16:57 Last Admin: 02/25/19 18:52 Dose: 125 mls/hr Documented by: Ioversol (Optiray 320 125ml) 119 ml IV ONCE PRN PRN Reason: Interaction Checking Stop: 03/01/19 11:52 Last Admin: 02/25/19 11:53 Dose: 119 ml Documented by: Morphine Sulfate (Morphine Sulfate) 1 mg IV Q3H PRN PRN Reason: MILD Pain (Scale 1,2,3) Stop: 03/11/19 16:57 Morphine Sulfate (Morphine Sulfate) 4 mg IV Q3H PRN PRN Reason: SEVERE Pain (Scale 7,8,9,10) Stop: 03/11/19 16:57 Ondansetron HCl (Zofran) 4 mg IV Q4H PRN PRN Reason: Nausea And Vomiting Stop: 03/27/19 16:57
[2019-02-26] MEDS: ACETAMINOPHEN 65 ML IV SCH ×4 (00:19→17:01)
[2019-02-26] MEDS: LACTATED RINGER'S 1,000 ML IV SCH ×2 (02:22→09:41)
[2019-02-26] MEDS: cefOXitin 2,000 MG in DEXTROSE 5% 50 ML IV SCH ×4 (02:23→19:37)
[2019-02-26 06:38] LABS: Basophils # (auto) 0.01 K/uL (0-0.2); Basophils % (auto) 0.2 %; Eosinophils # (auto) 0.01 K/uL (0-0.5); Eosinophils % (auto) 0.2 %; Hematocrit (blood only) 35.1 % (37-47); Hemoglobin 12.4 g/dL (12.0-16.0); Immature Granulocytes # (auto) 0.01 K/uL (0.00-0.02); Immature Granulocytes % (auto) 0.2 %; Lymphocytes # (auto) 1.62 K/uL (1.2-3.4); Mean Corpuscular Hgb Conc 35.3 g/dL (32-36); Mean Corpuscular Volume 89.8 fL (80-100); Mean Platelet Volume 9.8 fL (7.4-10.4); Monocytes # (auto) 0.92 K/uL (0.11-0.59); Monocytes % (auto) 14.8 %; Neutrophils # (auto) 3.66 K/uL (1.4-6.5); Neutrophils % (auto) 58.6 %; Platelet Count 185 K/uL (130-400); RDW Coefficient of Variation 13.6 % (11.5-14.5); RDW Standard Deviation 44.4 fL (36.4-46.3); Red Blood Count 3.91 M/uL (4.2-5.4); White Blood Count 6.23 K/uL (4.8-10.8)
[2019-02-26 07:05] LABS: Albumin Level 2.9 gm/dl (3.4-5.0); BUN Creatinine Ratio 9.3 (10-20); Calcium 7.9 mg/dl (8.5-10.1); Est GFR (African American) 97.6; Est GFR (Non-African American) 84.2; Potassium 3.8 mmol/L (3.5-5.1)
[2019-02-26 07:30] LABS: Albumin Globulin Ratio 1.1 (0.9-2); Bilirubin,Total 0.6 mg/dl (0.2-1); Globulin 2.7 gm/dl (2.5-4.0); Total Protein 5.6 gm/dl (6.4-8.2)
--- NOTE | 2019-02-26 08:22 | Surgery Progress Note ---
Date of Service February 26, 2019 Assessment & Plan (1) Intractable abdominal pain: 02/26/19 POD #1 will d/c gaspar, increase activity, dec fluids start clear liquids intraop findings and operation discussed with pt ct scan this am shows partial bowel obstruction left lower quadrant discussed with radiology etiology adhesion, int hernia at this time rec laparoscopy diagnostic possible laparotomy bowel resection we have exhausted non intervential exam and pt still with intermittent symp discussed with pt and and Dr Romo will plan for OR now r and c explained to them Subjective 02/26/19 feels much better than preop, no nausea, no further preop abd pains Examined patient pre-operatively , and she was in bad pain. Exam was limited 2/2 this. She is not able to eat and is requiring IV pain medications. Review of Systems Review of Systems: no complaints Physical Exam Physical Exam: alert coherent in no distress well hydrated abd benign serous drainage from blanca i and o noted Results & Data Vital Signs (Past 12 Hours) Vital Signs Temp Pulse Resp BP Pulse Ox 02/26/19 07:37 37.0 C 72 18 131/79 98 02/26/19 02:27 97 02/26/19 02:20 37.0 C 74 16 121/77 99 02/25/19 23:25 37.3 C 77 16 127/77 99 02/25/19 23:02 37.2 C 79 20 134/76 98 noted lab results
[2019-02-26] MEDS ORDERED: OXYCODONE/ACETAMINOPHEN 5mg/325mg TAB PO PRN (08:44)
[2019-02-26] MEDS ORDERED: ENOXAPARIN INJ 40 MG/0.4 ML SYR SQ SCH (09:00)
[2019-02-26] MEDS: HEPARIN SOD 5,000 UNIT/0.5 ML VIAL SQ SCH ×2 (09:19→20:46)
--- NOTE | 2019-02-26 10:28 | Hospitalist Progress Note ---
Date of Service February 26, 2019 Assessment & Plan (1) Intractable abdominal pain: post-op pain with hernia surgery 3 weeks ago, repeat CT today revealed a partial SBO. She underwent an exploratory laparotomy with lysis of adhesions and excision of a suture with closure of an enterotomy by Dr. Phan last night. This morning she is tolerating clear liquids and is doing well from a pain standpoint. She has been up and out of bed, progressing with her recovery process. Cont supportive care and antibiotics per surgery recommendations. (2) Status post inguinal hernia repair: 3 weeks ago had original inguinal hernia repair. Post operative complication as above caused recent admission for intractable pain and readmission for the same issue which had progressed to a partial SBO. (3) Depression: stable, restart welbutrin (4) HTN (hypertension): Recently started on HCTZ , however, held in light of readmission with surgical complication. Will cont to hold on adding agents and monitor BP now that her pain has improved. (5) DVT prophylaxis: heparin Full Code Dispo-pending surgery clearance for discharge. Cecilia Brown DO [facility] Hospitalist Subjective 63-year-old female who presented with recurrent and intractable abdominal pain found to have partial small bowel obstruction was taken to the OR yesterday. She had postoperative complication which was rectified surgically and is doing much better today. She is tolerating clear liquids. Pain is under control. She is receiving antibiotics but is been afebrile. She continues on the postop recovery process. Review of Systems Review of Systems: All systems reviewed & are unremarkable except as noted in HPI & below Physical Exam Physical Exam: CONSTITUTIONAL: WNWD, vitals as above, NAD RESPIRATORY: normal respiratory effort CARDIOVASCULAR: no edema GASTROINTESTINAL: soft, TTP expected around incision sites, nondistended MUSCULOSKELETAL: 5/5 strength throughout, ambulatory SKIN: warm and dry, incision sites are covered with a dressing that is c/d/i NEUROLOGIC: no gross focal deficits. PSYCHIATRIC: alert cooperative and oriented to person, place and time. Results & Data Vital Signs (Past 12 Hours) Vital Signs Temp Pulse Resp BP Pulse Ox 02/26/19 07:37 37.0 C 72 18 131/79 98 02/26/19 02:27 97 02/26/19 02:20 37.0 C 74 16 121/77 99 02/25/19 23:25 37.3 C 77 16 127/77 99 02/25/19 23:02 37.2 C 79 20 134/76 98 Laboratory Results Short CBC 02/26/19 Range/Units 06:21 WBC 6.23 (4.8-10.8) K/uL Hgb 12.4 (12.0-16.0) g/dL Hct 35.1 L (37-47) % Plt Count 185 (130-400) K/uL BMP 02/26/19 06:21 Sodium 130 L Potassium 3.8 Chloride 97 L Carbon Dioxide 27 BUN 7 Creatinine 0.75 Glucose 106 H Calcium 7.9 L Liver Function 02/26/19 Range/Units 06:21 Total Bilirubin 0.6 (0.2-1) mg/dl AST 17 (15-37) U/L ALT 24 (12-78) U/L Alkaline Phosphatase 49 (45-117) U/L Albumin 2.9 L (3.4-5.0) gm/dl Medications Administered Current Inpatient Medications Heparin Sodium (Porcine) (Heparin Sodium (Porcine)) 5,000 units SQ Q12 [facility] Stop: 03/27/19 21:59 Last Admin: 02/26/19 09:19 Dose: 5,000 units Documented by: Acetaminophen (Ofirmev) 65 mls @ 200 mls/hr IV Q8H [facility] Stop: 03/27/19 16:14 Last Infusion: 02/26/19 09:41 Dose: Infused Documented by: Cefoxitin Sodium 2,000 mg/ (Dextrose) 60 mls @ 100 mls/hr IV Q6H [facility] Stop: 02/27/19 19:59 Last Infusion: 02/26/19 10:24 Dose: Infused Documented by: Lactated Ringer's (Lr) 1,000 mls @ 75 mls/hr IV .[id number] [facility] Stop: 03/27/19 16:57 Last Admin: 02/26/19 09:41 Dose: 75 mls/hr Documented by: Ioversol (Optiray 320 125ml) 119 ml IV ONCE PRN PRN Reason: Interaction Checking Stop: 03/01/19 11:52 Last Admin: 02/25/19 11:53 Dose: 119 ml Documented by: Morphine Sulfate (Morphine Sulfate) 1 mg IV Q3H PRN PRN Reason: MILD Pain (Scale 1,2,3) Stop: 03/11/19 16:57 Morphine Sulfate (Morphine Sulfate) 4 mg IV Q3H PRN PRN Reason: SEVERE Pain (Scale 7,8,9,10) Stop: 03/11/19 16:57 Ondansetron HCl (Zofran) 4 mg IV Q4H PRN PRN Reason: Nausea And Vomiting Stop: 03/27/19 16:57 Oxycodone/Acetaminophen (Percocet 5mg/325mg) 1 tab PO Q4H PRN PRN Reason: Pain Stop: 03/12/19 08:43
--- NOTE | 2019-02-26 14:04 | Anesthesiology Progress Note ---
Date of Service February 26, 2019 Anesthesia Post Procedure Vital Signs Vital Signs: Temp Pulse Pulse Pulse Resp BP BP 02/26/19 07:37 37.0 C 72 18 131/79 02/26/19 02:27 02/26/19 02:20 37.0 C 74 16 121/77 02/25/19 23:25 37.3 C 77 16 127/77 02/25/19 23:02 37.2 C 79 20 134/76 02/25/19 20:07 37.2 C 83 20 142/72 H 02/25/19 18:58 37.5 C 82 20 131/81 02/25/19 17:30 36.4 C L 82 16 156/82 H 02/25/19 16:50 36.5 C 74 16 153/88 H 02/25/19 16:45 71 14 02/25/19 16:41 71 16 02/25/19 16:40 70 14 145/84 H 02/25/19 16:36 71 13 02/25/19 16:35 70 12 143/81 H 02/25/19 16:31 70 12 02/25/19 16:30 71 22 143/81 H 02/25/19 16:26 71 12 02/25/19 16:25 76 14 136/82 02/25/19 16:21 69 16 02/25/19 16:20 70 14 155/83 H 02/25/19 16:16 71 17 02/25/19 16:15 71 15 163/87 H 02/25/19 16:11 81 17 147/76 H 02/25/19 16:10 83 17 02/25/19 16:06 83 20 02/25/19 16:05 87 20 126/83 02/25/19 16:00 87 24 147/89 H 02/25/19 15:59 80 20 164/94 H 02/25/19 15:57 36.4 C L 88 92 H 15 164/94 H Pulse Ox 02/26/19 07:37 98 02/26/19 02:27 97 02/26/19 02:20 99 02/25/19 23:25 99 02/25/19 23:02 98 02/25/19 20:07 98 02/25/19 18:58 02/25/19 17:30 02/25/19 16:50 98 02/25/19 16:45 99 02/25/19 16:41 99 02/25/19 16:40 99 02/25/19 16:36 99 02/25/19 16:35 98 02/25/19 16:31 98 02/25/19 16:30 98 02/25/19 16:26 98 02/25/19 16:25 97 02/25/19 16:21 98 02/25/19 16:20 99 02/25/19 16:16 97 02/25/19 16:15 97 02/25/19 16:11 98 02/25/19 16:10 97 02/25/19 16:06 100 02/25/19 16:05 97 02/25/19 16:00 98 02/25/19 15:59 99 02/25/19 15:57 99 Pain Intensity Abdomen: Pain Intensity: 4 Transfer of Care Handoff Completed per policy Notes Mental Status: alert / awake / arousable and participated in evaluation Patient Amnestic to Procedure: Yes Nausea / Vomiting: adequately controlled Pain: adequately controlled Airway Patency, RR, SpO2: stable & adequate BP & HR: stable & adequate Hydration State: stable & adequate Anesthetic Complications: no major complications apparent
[2019-02-27] MEDS: LACTATED RINGER'S 1,000 ML IV SCH ×3 (01:08→19:19)
[2019-02-27] MEDS: ACETAMINOPHEN 65 ML IV SCH ×3 (01:08→15:47)
[2019-02-27] MEDS: cefOXitin 2,000 MG in DEXTROSE 5% 50 ML IV SCH ×3 (02:40→13:53)
[2019-02-27 06:58] LABS: Basophils # (auto) 0.02 K/uL (0-0.2); Basophils % (auto) 0.4 %; Eosinophils # (auto) 0.22 K/uL (0-0.5); Eosinophils % (auto) 4.7 %; Hematocrit (blood only) 31.8 % (37-47); Immature Granulocytes # (auto) 0.01 K/uL (0.00-0.02); Immature Granulocytes % (auto) 0.2 %; Lymphocytes # (auto) 1.66 K/uL (1.2-3.4); Lymphocytes % (auto) 35.4 %; Mean Corpuscular Hgb Conc 34.6 g/dL (32-36); Mean Corpuscular Volume 88.6 fL (80-100); Mean Platelet Volume 9.8 fL (7.4-10.4); Monocytes # (auto) 0.67 K/uL (0.11-0.59); Monocytes % (auto) 14.3 %; Neutrophils # (auto) 2.11 K/uL (1.4-6.5); Platelet Count 167 K/uL (130-400); RDW Coefficient of Variation 13.7 % (11.5-14.5); RDW Standard Deviation 44.8 fL (36.4-46.3); Red Blood Count 3.59 M/uL (4.2-5.4); White Blood Count 4.69 K/uL (4.8-10.8)
[2019-02-27 07:33] LABS: Albumin Level 2.7 gm/dl (3.4-5.0); BUN Creatinine Ratio 11.8 (10-20); Calcium 8.2 mg/dl (8.5-10.1); Est GFR (African American) 108.2; Est GFR (Non-African American) 93.4; Potassium 3.4 mmol/L (3.5-5.1)
[2019-02-27 07:36] LABS: Albumin Globulin Ratio 1.1 (0.9-2); Bilirubin,Total 0.5 mg/dl (0.2-1); Globulin 2.4 gm/dl (2.5-4.0); Total Protein 5.1 gm/dl (6.4-8.2)
--- NOTE | 2019-02-27 07:45 | Surgery Progress Note ---
Date of Service February 27, 2019 Assessment & Plan (1) Intractable abdominal pain: 02/27/19 POD #2 will increase to full liquids leave iv fluids for now suspect will be here another day or so until gi function returns 02/26/19 POD #1 will d/c gaspar, increase activity, dec fluids start clear liquids intraop findings and operation discussed with pt ct scan this am shows partial bowel obstruction left lower quadrant discussed with radiology etiology adhesion, int hernia at this time rec laparoscopy diagnostic possible laparotomy bowel resection we have exhausted non intervential exam and pt still with intermittent symp discussed with pt and and Dr Romo will plan for OR now r and c explained to them Subjective feels fine minimal discomfort, had good day yesterday ambulating Review of Systems Review of Systems: no nausea, no flatus yet Physical Exam Physical Exam: alert comfortable, no abdominal finding, expected post op finding minimal blanca drainage Results & Data Vital Signs (Past 12 Hours) Vital Signs Temp Pulse Resp BP Pulse Ox 02/26/19 23:07 37.1 C 89 16 113/67 96
[2019-02-27] MEDS: HEPARIN SOD 5,000 UNIT/0.5 ML VIAL SQ SCH ×2 (08:42→21:32)
[2019-02-27] MEDS ORDERED: BuPROPion SR 150 MG TABCR PO SCH (09:00)
[2019-02-27] MEDS: BuPROPion SR 150 MG TABCR PO SCH (09:16)
--- NOTE | 2019-02-27 10:44 | Anesthesiology Progress Note ---
Date of Service February 27, 2019 Anesthesia Post Procedure Vital Signs Vital Signs: Temp Pulse Pulse Resp BP BP Pulse Ox 02/27/19 08:00 37.1 C 86 16 124/74 97 02/26/19 23:07 37.1 C 89 16 113/67 96 02/26/19 15:05 37.2 C 69 16 144/82 H 98 Pain Intensity Abdomen: Pain Intensity: 5 Notes Mental Status: alert / awake / arousable Patient Amnestic to Procedure: Yes Nausea / Vomiting: adequately controlled Pain: adequately controlled Airway Patency, RR, SpO2: stable & adequate BP & HR: stable & adequate Hydration State: stable & adequate Anesthetic Complications: no major complications apparent
[2019-02-27] MEDS ORDERED: LORazepam 0.5 MG TAB PO STA (22:11)
[2019-02-28] MEDS: ACETAMINOPHEN 65 ML IV SCH ×2 (00:22→08:19)
--- NOTE | 2019-02-28 06:19 | Surgery Progress Note ---
Date of Service February 28, 2019 Assessment & Plan (1) Intractable abdominal pain: 02/28/19 POD#3 continues to do well will increase to reg diet(so she can have more options to choose from) once bowels move will d/c drain and if pain controlled can be d/c 02/27/19 POD #2 will increase to full liquids leave iv fluids for now suspect will be here another day or so until gi function returns 02/26/19 POD #1 will d/c gaspar, increase activity, dec fluids start clear liquids intraop findings and operation discussed with pt ct scan this am shows partial bowel obstruction left lower quadrant discussed with radiology etiology adhesion, int hernia at this time rec laparoscopy diagnostic possible laparotomy bowel resection we have exhausted non intervential exam and pt still with intermittent symp discussed with pt and and Dr Romo will plan for OR now r and c explained to them Subjective fells fine no complaint passing flatus no nausea Physical Exam Physical Exam: was asleep but easily awakened abd soft dressing dry blanca drainage recently emptied serous Results & Data Vital Signs (Past 12 Hours) Vital Signs Temp Pulse Resp BP Pulse Ox 02/27/19 23:14 37.1 C 93 H 18 119/74 96
[2019-02-28 07:18] LABS: Basophils # (auto) 0.04 K/uL (0-0.2); Basophils % (auto) 1.1 %; Eosinophils % (auto) 8.1 %; Hematocrit (blood only) 30.5 % (37-47); Hemoglobin 10.6 g/dL (12.0-16.0); Lymphocytes # (auto) 1.35 K/uL (1.2-3.4); Lymphocytes % (auto) 36.4 %; Mean Corpuscular Hgb Conc 34.8 g/dL (32-36); Mean Corpuscular Volume 90.2 fL (80-100); Mean Platelet Volume 9.4 fL (7.4-10.4); Monocytes # (auto) 0.54 K/uL (0.11-0.59); Monocytes % (auto) 14.6 %; Neutrophils # (auto) 1.48 K/uL (1.4-6.5); Neutrophils % (auto) 39.8 %; Platelet Count 155 K/uL (130-400); RDW Coefficient of Variation 13.8 % (11.5-14.5); RDW Standard Deviation 45.7 fL (36.4-46.3); Red Blood Count 3.38 M/uL (4.2-5.4); White Blood Count 3.71 K/uL (4.8-10.8)
[2019-02-28 07:50] LABS: Albumin Level 2.6 gm/dl (3.4-5.0); Calcium 8.1 mg/dl (8.5-10.1); Creatinine Clr Calc Pharmacy 70.8 ml/min; Est GFR (African American) 106.1; Est GFR (Non-African American) 91.6; Potassium 3.6 mmol/L (3.5-5.1)
[2019-02-28 07:53] LABS: Bilirubin,Total 0.4 mg/dl (0.2-1); Globulin 2.5 gm/dl (2.5-4.0); Total Protein 5.1 gm/dl (6.4-8.2)
[2019-02-28] MEDS: HEPARIN SOD 5,000 UNIT/0.5 ML VIAL SQ SCH ×2 (08:17→21:38)
[2019-02-28] MEDS: BuPROPion SR 150 MG TABCR PO SCH (08:18)
[2019-02-28] MEDS ORDERED: POLYETHYLENE (MIRALAX) 17 GM PACK PO SCH (14:45)
[2019-02-28] MEDS: ACETAMINOPHEN 500 MG TAB PO PRN (15:44)
[2019-02-28] MEDS: POLYETHYLENE (MIRALAX) 17 GM PACK PO SCH (15:44)
[2019-02-28] MEDS ORDERED: ONDANSETRON INJ 2 MG/ML 2 ML VIAL IV STA (16:39)
--- NOTE | 2019-02-28 16:39 | Hospitalist Progress Note ---
Date of Service February 28, 2019 Assessment & Plan (1) Postoperative ileus: NPO, supportive IVF, antiemetics. Avoid narcotics if possible, IV Tylenol preferred for pain control but may need narcotics so don't with hold. Avoid giving narcotics and benzos together. Dr. Dowd notified of the status change and agrees with the initial care plan. (2) Postoperative intestinal obstruction: s/p Exploratory laparotomy, lysis of adhesions, excision of suture, closure of enterotomy on 02/25. Was feeling well and eating food today. Had some Miralax and prune juice and was walking today. This afternoon developed symptoms of an ileus, confirmed on xray. No vomiting. See plan above. (3) Status post inguinal hernia repair: 3 weeks ago had original inguinal hernia repair. Post operative complication as above caused recent admission for intractable pain and readmission for the same issue which had progressed to a partial SBO. See above. (4) Depression: Welbutrin was started per home regimen, however, this was held as she is now NPO. (5) HTN (hypertension): Recently started on HCTZ , however, held in light of readmission with surgical complication. BP has been very good and at this point, I would recommend not continuing HCTZ at discharge, and would have her followup with her [employer] as outpatient for this. (6) DVT prophylaxis: heparin Full Code Dispo-cont hopsitalization until resolution of ileus. Cecilia Brown DO [facility] Hospitalist Subjective Not looking well when I walked in-she is guarding her abdomen and reporting some nausea. She tried some Miralax today and prune juice. She has been eating very lightly and avoiding dairy appropriately She is passing flatus but was unable to have a BM. No narcotics were given today. KUB taken and post-op ileus present Surgery was notified of the change in status. Review of Systems Review of Systems: All systems reviewed & are unremarkable except as noted in HPI & below Physical Exam Physical Exam: CONSTITUTIONAL: WNWD, vitals as above, somewhat guarded, holding abdomen while sitting in chair. Appears uncomfortable. HEENT: NC/AT, MMM RESPIRATORY: CTAB, normal respiratory effort CARDIOVASCULAR: S1/2 heard, no m/g/r, no edema GASTROINTESTINAL: soft, TTP expected around incision sites, nondistended, +GERALDINE drain with serosanguinous fluid MUSCULOSKELETAL: 5/5 strength throughout, ambulatory SKIN: warm and dry, incision sites are covered with a dressing that is c/d/i NEUROLOGIC: no gross focal deficits. PSYCHIATRIC: alert cooperative and oriented to person, place and time. Results & Data Vital Signs (Past 12 Hours) Vital Signs Temp Pulse Resp BP BP Pulse Ox 02/28/19 15:21 36.9 C 85 16 137/87 99 02/28/19 07:07 36.4 C L 67 16 113/67 97 Laboratory Results Short CBC 02/28/19 Range/Units 07:07 WBC 3.71 L (4.8-10.8) K/uL Hgb 10.6 L (12.0-16.0) g/dL Hct 30.5 L (37-47) % Plt Count 155 (130-400) K/uL BMP 02/28/19 07:07 Sodium 134 L Potassium 3.6 Chloride 100 Carbon Dioxide 28 BUN 6 L Creatinine 0.70 Glucose 97 Calcium 8.1 L Liver Function 02/28/19 Range/Units 07:07 Total Bilirubin 0.4 (0.2-1) mg/dl AST 16 (15-37) U/L ALT 22 (12-78) U/L Alkaline Phosphatase 43 L (45-117) U/L Albumin 2.6 L (3.4-5.0) gm/dl Diagnostic Findings KUB HISTORY: concern for post-op ileus COMPARISON: KUB 02/25/2019. FINDINGS: Midline skin gabrielle are noted. There is a surgical drain terminating within the left lower quadrant. There is residual oral contrast within the proximal colon. Multiple mildly dilated gas-filled loops of large and small bowel are noted. This favors a mild ileus. The small bowel within the right midabdomen is distended up to 4.3 cm. No renal calculi. No ureteral calculi. No pneumoperitoneum or pneumatosis. IMPRESSION: Interval postoperative changes. Mildly dilated gas-filled loops of large or small bowel are noted. This favors a mild postoperative ileus Medications Administered Current Inpatient Medications Acetaminophen (Tylenol) 1,000 mg PO Q6H PRN PRN Reason: Mild Pain Stop: 03/30/19 14:36 Last Admin: 02/28/19 15:44 Dose: 1,000 mg Documented by: Bupropion HCl (Wellbutrin-Sr) 150 mg PO QAM [facility] Stop: 03/29/19 08:59 Last Admin: 02/28/19 08:18 Dose: 150 mg Documented by: Heparin Sodium (Porcine) (Heparin Sodium (Porcine)) 5,000 units SQ Q12 [facility] Stop: 03/27/19 21:59 Last Admin: 02/28/19 08:17 Dose: 5,000 units Documented by: Potassium Chloride/Dextrose/Sod Cl (D5nss + 20meq Kcl) 20 meq in 1,000 mls @ 75 mls/hr IV .[id number] [facility] Stop: 03/02/19 10:29 Ioversol (Optiray 320 125ml) 119 ml IV ONCE PRN PRN Reason: Interaction Checking Stop: 03/01/19 11:52 Last Admin: 02/25/19 11:53 Dose: 119 ml Documented by: Morphine Sulfate (Morphine Sulfate) 1 mg IV Q3H PRN PRN Reason: MILD Pain (Scale 1,2,3) Stop: 03/11/19 16:57 Morphine Sulfate (Morphine Sulfate) 4 mg IV Q3H PRN PRN Reason: SEVERE Pain (Scale 7,8,9,10) Stop: 03/11/19 16:57 Ondansetron HCl (Zofran) 4 mg IV Q4H PRN PRN Reason: Nausea And Vomiting Stop: 03/27/19 16:57 Oxycodone/Acetaminophen (Percocet 5mg/325mg) 1 tab PO Q4H PRN PRN Reason: Pain Stop: 03/12/19 08:43 Last Admin: 02/26/19 20:50 Dose: 1 tab Documented by: Polyethylene Glycol (Miralax Powder Packet) 17 gm PO DAILY [facility] Stop: 03/30/19 14:29 Last Admin: 02/28/19 15:44 Dose: 17 gm Documented by:
[2019-02-28] MEDS: ONDANSETRON INJ 2 MG/ML 2 ML VIAL IV PRN ×2 (16:43→23:01)
--- NOTE | 2019-02-28 17:30 | XRay Report ---
KUB HISTORY: concern for post-op ileus COMPARISON: KUB 02/25/2019. FINDINGS: Midline skin gabrielle are noted. There is a surgical drain terminating within the left lower quadrant. There is residual oral contrast within the proximal colon. Multiple mildly dilated gas-[place] led loops of large and small bowel are noted. This favors a mild ileus. The small bowel within the [facility] midabdomen is distended up to 4.3 cm. No renal calculi. No ureteral calculi. No pneumoperitoneum or pneumatosis. IMPRESSION: Interval postoperative changes. Mildly dilated gas-filled loops of large or small bowel are noted. Th is favors a mild postoperative ileus. Electronically signed by: Germán Ambrocio M.D. 02/28/2019 5:29 PM
[2019-02-28] MEDS ORDERED: ACETAMINOPHEN 1,000 MG/100 ML VIAL IV PRN (18:32)
[2019-02-28] MEDS ORDERED: D5NSS + 20MEQ KCL 20 MEQ/1,000 ML BAG IV SCH (19:00)
[2019-02-28] MEDS ORDERED: LORazepam 0.5 MG/1 ML VIAL IV PRN (19:15)
[2019-02-28] MEDS ORDERED: LORazepam 0.5 MG/1 ML VIAL IV STA (19:26)
[2019-02-28] MEDS: SODIUM CHLORIDE 0.9% 1000ML 1,000 ML IV SCH (19:52)
--- NOTE | 2019-03-01 07:45 | Surgery Progress Note ---
Date of Service March 01, 2019 Assessment & Plan (1) Intractable abdominal pain: 03/01/19 POD#4 xray from last evening noted will repeat this am concerned about dilated loop of small bowel, stiil has contrast in right colon we ran the whole small bowel at time of surgery had one small enterotomy that was repaired with 3 stitches of 3-0 silk double layer she had mod amount fecalization of small bowel that was milked in cecum may need repeat ct scan of abd with oral contrast discussed with pt 02/28/19 POD#3 continues to do well will increase to reg diet(so she can have more options to choose from) once bowels move will d/c drain and if pain controlled can be d/c 02/27/19 POD #2 will increase to full liquids leave iv fluids for now suspect will be here another day or so until gi function returns 02/26/19 POD #1 will d/c gaspar, increase activity, dec fluids start clear liquids intraop findings and operation discussed with pt ct scan this am shows partial bowel obstruction left lower quadrant discussed with radiology etiology adhesion, int hernia at this time rec laparoscopy diagnostic possible laparotomy bowel resection we have exhausted non intervential exam and pt still with intermittent symp discussed with pt and and Dr Romo will plan for OR now r and c explained to them Subjective minimal abd pain feels like she needs to vomit passing flatus Physical Exam Physical Exam: alert but not as cheerful as yesterday am vitals noted abd softly distended no loc tenderness incision healing well blanca drainage serous not bilious Results & Data Vital Signs (Past 12 Hours) Vital Signs Temp Pulse Resp BP Pulse Ox 02/28/19 22:57 37.3 C 95 H 16 135/75 98 lab lending
[2019-03-01 07:48] LABS: Basophils # (auto) 0.02 K/uL (0-0.2); Basophils % (auto) 0.5 %; Eosinophils # (auto) 0.25 K/uL (0-0.5); Eosinophils % (auto) 6.4 %; Hematocrit (blood only) 31.1 % (37-47); Hemoglobin 10.7 g/dL (12.0-16.0); Lymphocytes # (auto) 1.13 K/uL (1.2-3.4); Lymphocytes % (auto) 28.8 %; Mean Corpuscular Hgb Conc 34.4 g/dL (32-36); Mean Corpuscular Volume 89.4 fL (80-100); Mean Platelet Volume 9.5 fL (7.4-10.4); Monocytes # (auto) 0.49 K/uL (0.11-0.59); Monocytes % (auto) 12.5 %; Neutrophils # (auto) 2.04 K/uL (1.4-6.5); Neutrophils % (auto) 51.8 %; Platelet Count 166 K/uL (130-400); RDW Coefficient of Variation 13.9 % (11.5-14.5); RDW Standard Deviation 45.6 fL (36.4-46.3); Red Blood Count 3.48 M/uL (4.2-5.4); White Blood Count 3.93 K/uL (4.8-10.8)
[2019-03-01 08:19] LABS: Est GFR (African American) 107.7; Est GFR (Non-African American) 92.9; Potassium 3.8 mmol/L (3.5-5.1)
[2019-03-01 08:20] LABS: Albumin Level 2.6 gm/dl (3.4-5.0); BUN Creatinine Ratio 8.2 (10-20); Calcium 8.1 mg/dl (8.5-10.1); Creatinine Clr Calc Pharmacy 73.9 ml/min
[2019-03-01 08:22] LABS: Albumin Globulin Ratio 1.1 (0.9-2); Bilirubin,Total 0.3 mg/dl (0.2-1); Globulin 2.5 gm/dl (2.5-4.0); Total Protein 5.1 gm/dl (6.4-8.2)
--- NOTE | 2019-03-01 08:39 | XRay Report ---
XR abdomen 2V w PA chest HISTORY: 63 years-old Female follow up bowel obstruction acute nausea and vomiting with history of p rior small bowel obstruction COMPARISON: KUB 02/28/2019 TECHNIQUE: PA view of the chest with erect and supine views of the abdomen FINDINGS: Cardiomediastinal and hilar silhouettes are within normal limits. No pneumothorax, large pleural effu fransisco, focal airspace consolidation or overt pulmonary edema. There is mild blunting of the left costo phrenic angle which appears unchanged. Degenerative changes of the shoulders and spine. No pneumatosis or pneumoperitoneum identified. Midline gabrielle project over the lower midline abdomin al/pelvic distribution. A drainage catheter projects over the left hemipelvis. Enteric contrast is no chi within the large bowel which has progressed from comparison. Multiple dilated loops of small soy l again noted measuring up to approximately 4.5 cm, previously measuring up to approximately 4.3 cm. Associated air-fluid levels are also noted. Air-fluid levels are also noted within the large bowel. D egenerative changes of the spine, pelvis and hips. No definite urolith. IMPRESSION: 1. No acute process of the chest. 2. Progression of enteric contrast throughout the large bowel. 3. Persistent dilated loops of small bowel with air-fluid levels noted within both large and small helga wel. Findings are suggestive of a postoperative ileus. Obstruction considered less likely. 4. Drainage catheter of the left hemipelvis appears unchanged. The above report was generated using voice recognition software. It may contain grammatical, syntax o r spelling errors. Electronically signed by: Vin Osborn M.D. 03/01/2019 8:38 AM
[2019-03-01] MEDS: SODIUM CHLORIDE 0.9% 1000ML 1,000 ML IV SCH (08:43)
[2019-03-01] MEDS: HEPARIN SOD 5,000 UNIT/0.5 ML VIAL SQ SCH ×2 (08:44→20:23)
--- NOTE | 2019-03-01 16:22 | Hospitalist Progress Note ---
Date of Service March 01, 2019 Assessment & Plan (1) Postoperative ileus: Developed post operative ileus confirmed by KUB/X ray abdomen. Clinically improving. Had a BM today, abdominal pain has improved -KUB on 02/28/19- Mild postoperative ileus -CXR/Abd x ray- Post operative ileus; no acute process, progression of contrast throughout the large bowel with persistent dilated loops of small bowel with air-fluid levels suggestive of postoperative ileus. Obstruction considered less likely -NPO --> Clear liquids -Monitor (2) Postoperative intestinal obstruction: Patient presented with on and off abdominal discomfort/pain post hernia repair surgery in January 2019. CT scan on admission showed partial small bowel obstruction. -S/P Exploratory laparotomy, lysis of adhesions, excision of suture, closure of enterotomy on 02/25/19. -Complicated by post operative ileus -Surgery on board (3) Status post inguinal hernia repair: -3 weeks ago had original inguinal hernia repair. Post operative complication as above caused recent admission for intractable pain and readmission for the same issue which had progressed to a partial SBO. See above. (4) Depression: -Welbutrin was started per home regimen (5) HTN (hypertension): -HCTZ was started recently -Continue to hold as BP stable without being on it (6) DVT prophylaxis: heparin SQ Full Code Dispo- Medical mx in progress Subjective Patient is feeling much better today. Mild abdominal discomfort not requiring any pain medications. Did pass gas and had a bowel movement today morning. Denies any fever, chills, shortness of breath next Physical Exam Physical Exam: GENERAL- AAOX3, No acute distress, looks younger than the stated age LUNGS- Air entry bilaterally equal. No rales, rhonchi, crackles, wheezes heard. HEART- Regular rate and rhythm. No murmurs ABDOMEN- Soft, Mild tenderness, Juan- no redness surrounding it. Dressing present with drain + EXTREMITIES- Good peripheral pulses, no edema SKIN- No rashes Results & Data Vital Signs (Past 12 Hours) Vital Signs Temp Pulse Pulse Resp BP Pulse Ox 03/01/19 15:31 37 C 88 16 116/80 97 03/01/19 08:16 36.9 C 86 20 134/76 96
[2019-03-01] MEDS ORDERED: MoRPHine SULFATE 2 MG/ML CARP IV PRN (17:48)
[2019-03-01] MEDS: ACETAMINOPHEN 500 MG TAB PO PRN (18:49)
[2019-03-02] MEDS: LORazepam 0.5 MG TAB PO PRN ×2 (00:18→20:46)
[2019-03-02] MEDS: ACETAMINOPHEN 500 MG TAB PO PRN ×3 (04:03→20:46)
--- NOTE | 2019-03-02 06:19 | Surgery Progress Note ---
Date of Service March 02, 2019 Assessment & Plan (1) Intractable abdominal pain: 03/02/19 POD#5 increase activity and diet may shower hope to d/c next 24 hrs leave blanca in for now 03/01/19 POD#4 xray from last evening noted will repeat this am concerned about dilated loop of small bowel, stiil has contrast in right colon we ran the whole small bowel at time of surgery had one small enterotomy that was repaired with 3 stitches of 3-0 silk double layer she had mod amount fecalization of small bowel that was milked in cecum may need repeat ct scan of abd with oral contrast discussed with pt 02/28/19 POD#3 continues to do well will increase to reg diet(so she can have more options to choose from) once bowels move will d/c drain and if pain controlled can be d/c 02/27/19 POD #2 will increase to full liquids leave iv fluids for now suspect will be here another day or so until gi function returns 02/26/19 POD #1 will d/c gaspar, increase activity, dec fluids start clear liquids intraop findings and operation discussed with pt ct scan this am shows partial bowel obstruction left lower quadrant discussed with radiology etiology adhesion, int hernia at this time rec laparoscopy diagnostic possible laparotomy bowel resection we have exhausted non intervential exam and pt still with intermittent symp discussed with pt and and Dr Romo will plan for OR now r and c explained to them Subjective feeels well had good day later in day yesterday moved bowels few times solid (not a lot) no pain occ tylenol no nausea Review of Systems Review of Systems: few BM yesterday solid small amounts Physical Exam Physical Exam: alert coherent in no distress resting comfortably abd soft blanca drainage serous Results & Data Vital Signs (Past 12 Hours) Vital Signs Temp Pulse Resp BP Pulse Ox 03/01/19 23:30 37.0 C 70 16 119/66 97 X ray from yesterday was reviewed yesterday
[2019-03-02 07:19] LABS: Basophils # (auto) 0.03 K/uL (0-0.2); Basophils % (auto) 0.8 %; Eosinophils % (auto) 11.2 %; Hematocrit (blood only) 30.3 % (37-47); Hemoglobin 10.7 g/dL (12.0-16.0); Immature Granulocytes # (auto) 0.01 K/uL (0.00-0.02); Immature Granulocytes % (auto) 0.3 %; Lymphocytes # (auto) 1.27 K/uL (1.2-3.4); Lymphocytes % (auto) 35.5 %; Mean Corpuscular Hgb Conc 35.3 g/dL (32-36); Mean Corpuscular Volume 89.6 fL (80-100); Mean Platelet Volume 9.2 fL (7.4-10.4); Monocytes # (auto) 0.45 K/uL (0.11-0.59); Monocytes % (auto) 12.6 %; Neutrophils # (auto) 1.42 K/uL (1.4-6.5); Neutrophils % (auto) 39.6 %; Platelet Count 166 K/uL (130-400); RDW Coefficient of Variation 13.8 % (11.5-14.5); RDW Standard Deviation 45.6 fL (36.4-46.3); Red Blood Count 3.38 M/uL (4.2-5.4); White Blood Count 3.58 K/uL (4.8-10.8)
[2019-03-02 07:54] LABS: Albumin Level 2.6 gm/dl (3.4-5.0); BUN Creatinine Ratio 7.5 (10-20); Calcium 8.3 mg/dl (8.5-10.1); Creatinine Clr Calc Pharmacy 83.9 ml/min; Est GFR (African American) 112.3; Est GFR (Non-African American) 96.9; Potassium 3.6 mmol/L (3.5-5.1)
[2019-03-02 07:57] LABS: Albumin Globulin Ratio 1.1 (0.9-2); Bilirubin,Total 0.4 mg/dl (0.2-1); Globulin 2.3 gm/dl (2.5-4.0); Total Protein 4.9 gm/dl (6.4-8.2)
[2019-03-02] MEDS: POLYETHYLENE (MIRALAX) 17 GM PACK PO SCH ×2 (08:44→09:55)
[2019-03-02] MEDS ORDERED: buPROPion HCl 100 MG TABLET PO SCH (09:00)
[2019-03-02] MEDS: BuPROPion SR 150 MG TABCR PO SCH (09:46)
[2019-03-02] MEDS: HEPARIN SOD 5,000 UNIT/0.5 ML VIAL SQ SCH ×2 (09:47→20:35)
--- NOTE | 2019-03-02 15:52 | Hospitalist Progress Note ---
Date of Service March 02, 2019 Assessment & Plan (1) Postoperative ileus: Developed post operative ileus confirmed by KUB/X ray abdomen. Clinically improving. Had a BM today, abdominal pain has almost resolved. Tolerating regular diet, ambulation -KUB on 02/28/19- Mild postoperative ileus -CXR/Abd x ray- Post operative ileus; no acute process, progression of contrast throughout the large bowel with persistent dilated loops of small bowel with air-fluid levels suggestive of postoperative ileus. Obstruction considered less likely (2) Postoperative intestinal obstruction: Patient presented with on and off abdominal discomfort/pain post hernia repair surgery in January 2019. CT scan on admission showed partial small bowel obstruction. -S/P Exploratory laparotomy, lysis of adhesions, excision of suture, closure of enterotomy on 02/25/19. -Complicated by post operative ileus which has now improved and tolerating regular diet -Surgery on board (3) Status post inguinal hernia repair: -3 weeks ago had original inguinal hernia repair. Post operative complication as above caused recent admission for intractable pain and readmission for the same issue which had progressed to a partial SBO. See above. (4) Depression: -Welbutrin was started per home regimen (5) HTN (hypertension): -HCTZ was started recently -Continue to hold as BP stable without being on it (6) DVT prophylaxis: heparin SQ Full Code Dispo- Medical mx in progress Likely discharge in AM if continues to be medically stable Subjective Patient is feeling much better today. Mild abdominal cramps not requiring any pain medications. Had a small BM but not too formed. Tolerating PO diet Ambulating in the hallway Denies any fever, chills, shortness of breath next Physical Exam Physical Exam: GENERAL- AAOX3, No acute distress, looks younger than the stated age LUNGS- Air entry bilaterally equal. No rales, rhonchi, crackles, wheezes heard. HEART- Regular rate and rhythm. No murmurs ABDOMEN- Soft, Mild tenderness, Juan- no redness surrounding it. Dressing present with drain + EXTREMITIES- Good peripheral pulses, no edema SKIN- No rashes Results & Data Vital Signs (Past 12 Hours) Vital Signs Temp Pulse Resp BP Pulse Ox 03/02/19 15:25 36.9 C 83 16 139/79 98 03/02/19 07:47 36.4 C L 74 18 113/74 100
[2019-03-02] MEDS: ONDANSETRON INJ 2 MG/ML 2 ML VIAL IV PRN (22:18)
--- NOTE | 2019-03-03 06:11 | Surgery Progress Note ---
Date of Service March 03, 2019 Assessment & Plan (1) Intractable abdominal pain: 03/03/19 POD #6 will get ugi with small bowel follow through not ready for d/c 03/02/19 POD#5 increase activity and diet may shower hope to d/c next 24 hrs leave blanca in for now 03/01/19 POD#4 xray from last evening noted will repeat this am concerned about dilated loop of small bowel, stiil has contrast in right colon we ran the whole small bowel at time of surgery had one small enterotomy that was repaired with 3 stitches of 3-0 silk double layer she had mod amount fecalization of small bowel that was milked in cecum may need repeat ct scan of abd with oral contrast discussed with pt 02/28/19 POD#3 continues to do well will increase to reg diet(so she can have more options to choose from) once bowels move will d/c drain and if pain controlled can be d/c 02/27/19 POD #2 will increase to full liquids leave iv fluids for now suspect will be here another day or so until gi function returns 02/26/19 POD #1 will d/c gaspar, increase activity, dec fluids start clear liquids intraop findings and operation discussed with pt ct scan this am shows partial bowel obstruction left lower quadrant discussed with radiology etiology adhesion, int hernia at this time rec laparoscopy diagnostic possible laparotomy bowel resection we have exhausted non intervential exam and pt still with intermittent symp discussed with pt and and Dr Romo will plan for OR now r and c explained to them Subjective no appetite, frequent bm vague abd pains Review of Systems Review of Systems: no emesis no nausea moving bowels Physical Exam Physical Exam: sleeping but easily awakened abd soft no loc tenderness blanca drainage fluid slight green color Results & Data Vital Signs (Past 12 Hours) Vital Signs Temp Pulse Resp BP Pulse Ox 03/03/19 00:48 156/84 H 03/02/19 23:30 169/87 H 03/02/19 23:15 37.1 C 92 H 16 174/93 H 96
[2019-03-03 06:57] LABS: Basophils # (auto) 0.01 K/uL (0-0.2); Basophils % (auto) 0.2 %; Eosinophils # (auto) 0.22 K/uL (0-0.5); Eosinophils % (auto) 3.7 %; Hemoglobin 12.7 g/dL (12.0-16.0); Immature Granulocytes # (auto) 0.02 K/uL (0.00-0.02); Immature Granulocytes % (auto) 0.3 %; Lymphocytes # (auto) 1.11 K/uL (1.2-3.4); Lymphocytes % (auto) 18.6 %; Mean Corpuscular Hgb Conc 35.3 g/dL (32-36); Mean Corpuscular Volume 90.5 fL (80-100); Mean Platelet Volume 9.1 fL (7.4-10.4); Monocytes # (auto) 0.94 K/uL (0.11-0.59); Monocytes % (auto) 15.7 %; Neutrophils # (auto) 3.68 K/uL (1.4-6.5); Neutrophils % (auto) 61.5 %; Platelet Count 214 K/uL (130-400); RDW Coefficient of Variation 13.8 % (11.5-14.5); RDW Standard Deviation 46.3 fL (36.4-46.3); Red Blood Count 3.98 M/uL (4.2-5.4); White Blood Count 5.98 K/uL (4.8-10.8)
[2019-03-03] MEDS: LACTATED RINGER'S 1,000 ML IV SCH ×2 (07:12→21:15)
[2019-03-03 07:27] LABS: BUN Creatinine Ratio 8.3 (10-20); Calcium 8.5 mg/dl (8.5-10.1); Creatinine Clr Calc Pharmacy 58.3 ml/min; Est GFR (African American) 83.9; Est GFR (Non-African American) 72.4; Potassium 4.1 mmol/L (3.5-5.1)
[2019-03-03] MEDS: HEPARIN SOD 5,000 UNIT/0.5 ML VIAL SQ SCH ×2 (12:13→21:11)
[2019-03-03] MEDS: BuPROPion SR 150 MG TABCR PO SCH (12:13)
[2019-03-03] MEDS: POLYETHYLENE (MIRALAX) 17 GM PACK PO SCH (12:13)
--- NOTE | 2019-03-03 14:54 | Fluoroscopy Report ---
FL GI w/air small bowel RTN CLINICAL HISTORY: intermittent bowel obstruction COMPARISON STUDY: Small bowel follow-through dated 02/24/2019, CT scan dated 02/25/2019, KUB dated 02/07 FLUOROSCOPY TIME: 2.1 minutes. NUMBER OF FLUOROSCOPIC IMAGES: 35 FINDINGS: The patient swallowed barium without difficulty. No esophageal masses were visualized. No gastric mas ses were visualized. There is no gastric outlet obstruction. The duodenal bulb appear normal. The pat ient was administered enteroview and a small bowel follow-through was performed. There are multiple d ilated loops of proximal small bowel measuring up to 6.4 cm in diameter uncorrected for magnification . There is a mid small bowel transition zone with more normal caliber distal jejunal and ileal loops. Real-time fluoroscopic spot imaging was performed. The exact transition site could not be identified . Contrast reached the colon and 5 hours and 30 minutes. IMPRESSION: 1. Dilated proximal small bowel with normal caliber distal small bowel. The small bowel transit time was 5 hours and 30 minutes. The findings are indicative of either a partial small bowel obstruction, or residual small bowel dilatation from the patient's prior obstructive episode. Electronically signed by: Aston Matos M.D. 03/03/2019 2:53 PM
[2019-03-03] MEDS: ACETAMINOPHEN 500 MG TAB PO PRN ×2 (15:25→21:14)
--- NOTE | 2019-03-03 16:44 | Hospitalist Progress Note ---
Date of Service March 03, 2019 Assessment & Plan (1) Postoperative ileus: Developed post operative ileus confirmed by KUB/X ray abdomen on 02/28/19. Clinically improved had a BM, tolerating diet. But again 03/02 overnight worsened with severe nausea. Small bowel follow through today-dilated proximal small bowel with normal caliber distal small bowel. Indicated of either a partial small bowel obstruction or residual small bowel dilation from patient's prior obstructive episode. -Per general surgery, likely ileus -Downgrade diet to clear liquid, IV Fluids -Work up on 02/28/19-KUB on 02/28/19- Mild postoperative ileus . CXR/Abd x ray- Post operative ileus; no acute process, progression of contrast throughout the large bowel with persistent dilated loops of small bowel with air-fluid levels suggestive of postoperative ileus. Obstruction considered less likely (2) Postoperative intestinal obstruction: Patient presented with on and off abdominal discomfort/pain post hernia repair surgery in January 2019. CT scan on admission showed partial small bowel obstruction. -S/P Exploratory laparotomy, lysis of adhesions, excision of suture, closure of enterotomy on 02/25/19. -Complicated by post operative ileus as above (3) Status post inguinal hernia repair: -3 weeks ago had original inguinal hernia repair. Post operative complication as above caused recent admission for intractable pain and readmission for the same issue which had progressed to a partial SBO. See above. (4) Depression: -Welbutrin was started per home regimen (5) HTN (hypertension): -HCTZ was started recently -Held as BP was stable. Restart as BP going up againt (6) DVT prophylaxis: heparin SQ Full Code Dispo- Medical mx in progress Continue to monitor Updated by bedside. Subjective Overnight patient had severe nausea, unable to take more p.o. Today morning had small bowel follow-through which continues to show dilation of proximal small bowel. Patient is feeling a little better now. Back to clear liquids. Pain is tolerable with Tylenol PRN. Had multiple bowel movements overnight No fever, chills. Physical Exam Physical Exam: GENERAL- AAOX3, No acute distress, looks younger than the stated age LUNGS- Air entry bilaterally equal. No rales, rhonchi, crackles, wheezes heard. HEART- Regular rate and rhythm. No murmurs ABDOMEN- Soft, Mild tenderness, Juan- no redness surrounding it. Dressing present with drain + EXTREMITIES- Good peripheral pulses, no edema SKIN- No rashes Results & Data Vital Signs (Past 12 Hours) Vital Signs Temp Pulse Resp BP Pulse Ox 03/03/19 16:05 36.9 C 85 16 145/78 H 97 03/03/19 08:00 37.3 C 86 17 128/73 97
--- NOTE | 2019-03-03 16:54 | Surgery Progress Note ---
Date of Service March 03, 2019 Assessment & Plan (1) Intractable abdominal pain: 03/03/19 POD #6 second visit at 3;30pm spoke with pt and pt sitting up in chair comfortably at this time no surgical intervention pt has had obstructive symp off and on for one month will wait if oral intake continuos to be marginal may need hyperal no plans to take pt back to surgery at this time will add reglan 03/03/19 POD #6 will get ugi with small bowel follow through not ready for d/c 03/02/19 POD#5 increase activity and diet may shower hope to d/c next 24 hrs leave blanca in for now 03/01/19 POD#4 xray from last evening noted will repeat this am concerned about dilated loop of small bowel, stiil has contrast in right colon we ran the whole small bowel at time of surgery had one small enterotomy that was repaired with 3 stitches of 3-0 silk double layer she had mod amount fecalization of small bowel that was milked in cecum may need repeat ct scan of abd with oral contrast discussed with pt 02/28/19 POD#3 continues to do well will increase to reg diet(so she can have more options to choose from) once bowels move will d/c drain and if pain controlled can be d/c 02/27/19 POD #2 will increase to full liquids leave iv fluids for now suspect will be here another day or so until gi function returns 02/26/19 POD #1 will d/c gaspar, increase activity, dec fluids start clear liquids intraop findings and operation discussed with pt ct scan this am shows partial bowel obstruction left lower quadrant discussed with radiology etiology adhesion, int hernia at this time rec laparoscopy diagnostic possible laparotomy bowel resection we have exhausted non intervential exam and pt still with intermittent symp discussed with pt and and Dr Romo will plan for OR now r and c explained to them Subjective taking tylenol for occ pain Review of Systems Review of Systems: some nausea off and on Physical Exam Physical Exam: abdominal exam unchanged sitting up in chair just came back from ugi with sbft at 5 1/2 hour images Results & Data Vital Signs (Past 12 Hours) Vital Signs Temp Pulse Resp BP Pulse Ox 03/03/19 16:05 36.9 C 85 16 145/78 H 97 03/03/19 08:00 37.3 C 86 17 128/73 97 reviewed ugi with SBFT with radiologist slow transit proximal small bowl more dilated but no definite transition point a7 5 1/2 hour contrast in colon without obvious obstruction reviewed with radiologist
[2019-03-03] MEDS: hydroCHLOROthiazide 25 MG TAB PO SCH (18:57)
[2019-03-03] MEDS: LORazepam 0.5 MG TAB PO PRN (21:14)
--- NOTE | 2019-03-04 08:45 | XRay Report ---
PA CHEST WITH ABDOMINAL SERIES CLINICAL HISTORY: Follow-up small bowel obstruction. FINDINGS: A PA chest radiograph is compared to study dated 03/01/2019. The cardiomediastinal silhouette is unrem arkable. The lungs and pleural spaces are clear. No pneumothorax is seen. The bony thorax is grossly intact. Supine and erect abdominal radiographs are compared to study dated 03/01/2019 and correlated with abdo nba CT dated 02/25/2019 and fluoroscopic small bowel study dated 03/03/2019. A surgical drain is note d in the pelvis. There are mildly distended and gas-filled loops of proximal small bowel which measur e up to 2.8 cm. There is no radiographic evidence of high-grade bowel obstruction. Retained enteric c ontrast is seen throughout the colon. No evidence of intraperitoneal free air is seen. There are no a bnormal abdominal calcifications. Phleboliths are noted in the pelvis. The lumbosacral spine and bony pelvis appear intact. IMPRESSION: 1. No active disease in the chest. 2. There is no radiographic evidence of high-grade bowel obstruction. 3. Enteric contrast is seen throughout the colon. 4. A surgical drain is noted in the pelvis. Electronically signed by: Alexei Farmer M.D. 03/04/2019 8:44 AM
[2019-03-04] MEDS: BuPROPion SR 150 MG TABCR PO SCH (08:49)
[2019-03-04] MEDS: POLYETHYLENE (MIRALAX) 17 GM PACK PO SCH (08:49)
[2019-03-04] MEDS: hydroCHLOROthiazide 25 MG TAB PO SCH (08:49)
[2019-03-04] MEDS: HEPARIN SOD 5,000 UNIT/0.5 ML VIAL SQ SCH (09:22)
[2019-03-04] MEDS: ACETAMINOPHEN 500 MG TAB PO PRN (09:22)
--- NOTE | 2019-03-04 09:22 | Surgery Progress Note ---
Date of Service March 04, 2019 Assessment & Plan (1) Intractable abdominal pain: 03/04/19 POD#7 pt wants to go home tolerating liquids ok to d/c rec low fiber diet supplement with Ensure or Boost return office this week call [phone] for any problems no lifting greater than 10 lbs, may shower tylenol for pain prn 03/03/19 POD #6 second visit at 3;30pm spoke with pt and pt sitting up in chair comfortably at this time no surgical intervention pt has had obstructive symp off and on for one month will wait if oral intake continuos to be marginal may need hyperal no plans to take pt back to surgery at this time will add reglan 03/03/19 POD #6 will get ugi with small bowel follow through not ready for d/c 03/02/19 POD#5 increase activity and diet may shower hope to d/c next 24 hrs leave blanca in for now 03/01/19 POD#4 xray from last evening noted will repeat this am concerned about dilated loop of small bowel, stiil has contrast in right colon we ran the whole small bowel at time of surgery had one small enterotomy that was repaired with 3 stitches of 3-0 silk double layer she had mod amount fecalization of small bowel that was milked in cecum may need repeat ct scan of abd with oral contrast discussed with pt 02/28/19 POD#3 continues to do well will increase to reg diet(so she can have more options to choose from) once bowels move will d/c drain and if pain controlled can be d/c 02/27/19 POD #2 will increase to full liquids leave iv fluids for now suspect will be here another day or so until gi function returns 02/26/19 POD #1 will d/c gaspar, increase activity, dec fluids start clear liquids intraop findings and operation discussed with pt ct scan this am shows partial bowel obstruction left lower quadrant discussed with radiology etiology adhesion, int hernia at this time rec laparoscopy diagnostic possible laparotomy bowel resection we have exhausted non intervential exam and pt still with intermittent symp discussed with pt and and Dr Romo will plan for OR now r and c explained to them Subjective feels fine wants to go home slept well last night felt great passing flatus no bm tolerating liquids Physical Exam Physical Exam: alert in no distress walking halls without pain abd soft benign incision healing well blanca drainage serous(removed) Results & Data Vital Signs (Past 12 Hours) Vital Signs Temp Pulse Resp BP Pulse Ox 03/04/19 07:08 36.8 C 95 H 16 116/72 97 03/03/19 22:56 37.1 C 79 16 120/66 96
--- NOTE | 2019-03-04 09:40 | Hospitalist Progress Note ---
Date of Service March 04, 2019 Assessment & Plan (1) Postoperative ileus: Developed post operative ileus confirmed by KUB/X ray abdomen on 02/28/19. Clinically improved, but again 03/02 overnight worsened with severe nausea. Now doing much better- pain, nausea, vomiting has resolved. -Tolerating PO -small frequent meals -Work up on 02/28/19-KUB on 02/28/19- Mild postoperative ileus . CXR/Abd x ray- Post operative ileus; no acute process, progression of contrast throughout the large bowel with persistent dilated loops of small bowel with air-fluid levels suggestive of postoperative ileus. Obstruction considered less likely. 03/03/19- Small bowel follow through today-dilated proximal small bowel with normal caliber distal small bowel. Indicated of either a partial small bowel obstruction or residual small bowel dilation from patient's prior obstructive episode. X ray today shows an enteric contrast throughout the colon, no evidence of obstruction. -D/w surgery, Dr Phan - Cleared for discharge with follow up in 1 week (2) Postoperative intestinal obstruction: Patient presented with on and off abdominal discomfort/pain post hernia repair surgery in January 2019. CT scan on admission showed partial small bowel obstruction. -S/P Exploratory laparotomy, lysis of adhesions, excision of suture, closure of enterotomy on 02/25/19. -Complicated by post operative ileus as above (3) Status post inguinal hernia repair: -3 weeks ago had original inguinal hernia repair. Post operative complication as above caused recent admission for intractable pain and readmission for the same issue which had progressed to a partial SBO. See above. (4) Depression: -Welbutrin was started per home regimen (5) HTN (hypertension): -HCTZ was started recently -Held as BP was stable. Will not continue on discharge. Monitor BP and accordingly consider restarting (6) DVT prophylaxis: heparin SQ Full Code Dispo- Cleared for discharge by surgery Ok to discharge home today Updated , son by bedside. Subjective Patient is feeling much better today. Had a good sleep overnight. Denies any abdominal pain, nausea, vomiting. Tolerating p.o. diet, though appetite continues to be low. No fever, chills Drain was removed Eager to be discharged Dr. Phan by bedside with family Physical Exam Physical Exam: GENERAL- AAOX3, No acute distress, looks younger than the stated age LUNGS- Air entry bilaterally equal. No rales, rhonchi, crackles, wheezes heard. HEART- Regular rate and rhythm. No murmurs ABDOMEN- Soft, Mild tenderness, Juan- no redness surrounding it. Dressing present with drain + EXTREMITIES- Good peripheral pulses, no edema SKIN- No rashes Results & Data Vital Signs (Past 12 Hours) Vital Signs Temp Pulse Resp BP Pulse Ox 03/04/19 07:08 36.8 C 95 H 16 116/72 97 03/03/19 22:56 37.1 C 79 16 120/66 96
--- NOTE | 2019-03-04 09:45 | Discharge Summary ---
Date of Service March 04, 2019 Admission HPI Per Admitting Provider 63-year-old female who was admitted to the hospital several days ago for evaluation of abdominal discomfort. The abdominal pain localizes to her left hand side and is been ongoing since a hernia repair done in January of this year by a surgeon in [place]. The patient notes that she has had ongoing discomfort since the surgical procedure which seems to wax and wane in intensity. She was seen on several occasions by her surgeon who felt that there was no surgical issue at this point in time. She does have a long history of spinal stenosis and what appears to be chronic constipation. She underwent a small bowel fo llow-through the other day which showed no evidence of an obstructive process. She does admit to having regular bowel movements and reports having a prior colonoscopy by [facility] about 6 months ago. Principal Diagnosis 1. Post operative Intestinal Obstruction S/P exploratory laparotomy 2. Postoperative ileus 3. History of recent post inguinal hernia repair Secondary diagnoses on discharge 1. Depression 2. Hypertension Discharge Exam GENERAL- AAOX3, No acute distress, looks younger than the stated age LUNGS- Air entry bilaterally equal. No rales, rhonchi, crackles, wheezes heard. HEART- Regular rate and rhythm. No murmurs ABDOMEN- Soft, Mild tenderness, [place]- no redness surrounding it. Dressing present with drain + EXTREMITIES- Good peripheral pulses, no edema SKIN- No rashes Discharge Data Allergies Allergy/AdvReac Type Severity Reaction Status Date / Time No Known Allergies Allergy Unverified 02/25/19 01:40 Consultations 02/25/19 02:08 ED Decision to Admit Stat 02/25/19 04:11 Consult Gastroenterology Routine Consult General Surgery Routine Procedures Performed Operation Date: 02/25/19 13:30 Actual Procedures p Exploratory laparotomy, lysis of adhesions, excision of suture, closure of enterotomy - Ke Phan MD Ordered Studies 02/25/19 10:03 CT angio abdomen pelvis w con Routine 03/03/19 10:30 FL GI w/air & small bowel RTN Routine Hospital Course (1) Postoperative intestinal obstruction: Patient presented with on and off abdominal discomfort/pain post hernia repair surgery in January 2019. CT scan on admission showed partial small bowel obstruction. -S/P Exploratory laparotomy, lysis of adhesions, excision of suture, closure of enterotomy on 02/25/[address] Phan -Complicated by post operative ileus as above (2) Postoperative ileus: Developed post operative ileus confirmed by KUB/X ray abdomen on 02/28/19. Clinically improved, but again 03/02 overnight worsened with severe nausea. Now doing much better- pain, nausea, vomiting has resolved. X ray today- No obstruction, contrast in colon -Tolerating PO -small frequent meals. S/P IV Fluids -Work up on 02/28/19-KUB on 02/28/19- Mild postoperative ileus . CXR/Abd x ray- Post operative ileus; no acute process, progression of contrast throughout the large bowel with persistent dilated loops of small bowel with air-fluid levels suggestive of postoperative ileus. Obstruction considered less likely. 03/03/19- Small bowel follow through today-dilated proximal small bowel with normal caliber distal small bowel. Indicated of either a partial small bowel obstruction or residual small bowel dilation from patient's prior obstructive episode. X ray today shows an enteric contrast throughout the colon, no evidence of obstruction. -D/w surgery, Dr Phan - Cleared for discharge with follow up in 1 week (3) Status post inguinal hernia repair: -3 weeks ago had original inguinal hernia repair. Post operative complication as above caused recent admission for intractable pain and readmission for the same issue which had progressed to a partial SBO. See above. (4) Depression: -Welbutrin was started per home regimen (5) HTN (hypertension): -HCTZ was started recently -Held as BP was stable. Will not continue on discharge. Monitor BP and accordingly consider restarting (6) DVT prophylaxis: heparin SQ Full Code Dispo- Cleared for discharge by surgery Ok to discharge home today Updated , son by bedside. Total Time Total Time Spent Total Time Spent (In Minutes): 38 minutes Discharge Plan Discharge Items Patient Disposition: Home - Self-Care Reason For Visit: ABD PAIN Discharge Diagnosis: 1. Postobstructive intestinal obstruction status post exploratory laparotomy 2. Postoperative ileus Condition: Fair Discharge Goals: Decrease discomfort Activity: As commented below Lifting: No more than 10 pounds Bathing: No limitations Driving/Machine Use: Resume 3 days after discharge Driving/Machine Use Comment: if not having pain or taking Percocet Non-emergency contact: Surgeon Call non-emergency contact if: you have any medication questions, your pain is not controlled, you have a fever, your temperature is above 101.5 and your wound has increased redness Follow-up/Referrals: Ke Phan MD [Surgeon] - (Call to make an appt for next week CALL: [phone] FOR ANY PROBLEMS) PCP,NO [Primary Care Provider] - (Establish Care with PCP and recommend hospital follow up visit in 1 week) Diet: Low Fiber Diet Comment: low fiber diet for 1-2 weeks Addtl Provider Instructions: MEDICATION CHANGES Discontinued Hydrochlorthiazide as BP remained stable without being on it. Need to monitor BP outpatient Diet Low fibre diet for at least 1-2 weeks. Recommend small frequent meals and advance diet slowly as tolerated Prescriptions: New ondansetron HCl [Zofran] 4 mg tablet 4 mg PO Q8H PRN (Reason: nausea and vomiting) 5 Days Qty: 14 RF: 0 Continued Gwendolyn-D 24 Hour 180-240 mg Tablet Extended Release 24 Hr 1 tab PO PM PRN (Reason: seasonal allergies) RF: 0 bupropion HCl 150 mg tablet sustained-release 12 hr 150 mg PO DAILY RF: 0 cholecalciferol (vitamin D3) [Vitamin D3] 2,000 unit Tablet 2,000 unit PO DAILY RF: 0 lorazepam 0.5 mg Tablet 0.5 mg PO BID PRN (Reason: anxiety/sleep) RF: 0 Discontinued hydrochlorothiazide 25 mg Tablet 12.5 mg PO QAM Qty: 30 RF: 1 dicyclomine 10 mg Capsule 10 mg PO BID Qty: 60 RF: 1 Stand-Alone Forms: Call Back Authorization, [facility]/Other Patient Handouts: Ileus Discharge Orders: Discharge Order (Routine); Ordered 03/04/19 Ordered By: Stephani Kilpatrick Admission Data Admit Date/Time: 02/25/19 03:07 Attending Provider: Stephani Kilpatrick Admit Provider: Kody Montes Primary Care Provider: PCP,NO Other Providers: Kody Montes ; Will De La O ; Ibrahima Ferrell ; Ruth Chanel ; Alex Romo ; Humera Saldivar ; Brendan Rodriguez ; Lorna Phillips ; Orlando Carvalho ; Ramsey Gregory ; Evy Marques ; Roxane Ventura ; Seda Duarte ; Yvonne Ferrer ; Jo-Ann Stubbs ; Ke Phan ; Cecilia Brown Service: Surgical Services
[2019-03-04] MEDS: LACTATED RINGER'S 1,000 ML IV SCH (10:44)
== END 2019-03-04 11:45 | disposition home or self-care (01) | DRG 336 ==
LOC: ED 00:46 → 3N 03:07 → SUATTDRO 03:07 → 3N 04:00

== ENCOUNTER 2020-10-25 10:53 | Inpatient (IN) ==
--- NOTE | 2020-10-21 08:49 | Anesthesiology Consultation ---
Date of Service October 21, 2020 Assessment & Plan (1) Encounter for pre-operative examination: Chart Review Chart Review: Acceptable Risk for Surgery and Patient NOT seen in Pre Admission Testing Per nursing assessment 10/03/20, patient denies any travel with exception to [facility] for medical appts. No known Covid positive contacts or Covid related symptoms. No known Covid infection in the past 90 days. Pt scheduled for preop Covid testing 10[place]18[place]20 [place] [facility] [place] Seen by neurology 09/25/2020 = patient presents for hospital follow-up for provoked seizure. Patient was seen 08/30/2020 while admitted for probable seizurepossibly secondary to sodium level of only 114 as well as being on Wellbutrin. No prior history of seizure. Patient no longer on Wellbutrin. No antiepileptic drug was initiated as this was a provoked seizure and no driving restrictions initiated. Patient is planning on having lumbar spine surgery in near future. Reviewed reviewed normal neuro imaging. No need for AED. We will continue off Wellbutrin and any other medications that lower the seizure threshold. Discussed that we would like her sodium to slowly normalize to decrease the risk of central pontine myelinolysis. Most recent blood work on the show that it is back to normal. " Due to this, I am happy to provide neurology clearance for her surgery on her lumbar spine." Pt seen by PCP 09/06/20= seen for follow up- was hospitalized from Aug 30-2020 for hypokalemia and hyponatremia with seizure activity. Wellbutrin d/c'ed, Lasix and KCl added to medical regiment. Na was 114 upon admission to hospital. 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 Discharged on fluid restriction. Pt to follow up with speciaists as directed. No other seizures noted per note. F/u in two months History Surgery Operation Date: 10/25/20 12:25 Proposed Procedures p L4-S1 Decompression and Fusion, Spinal Cord Monitoring - Bayron Carrillo DO Height/Weight Height: 5 ft 5 in Weight: 58.967 kg Allergies Allergy/AdvReac Type Severity Reaction Status Date / Time hydrochlorothiazide AdvReac Unknown SEVERE Verified 10/03/20 14:17 HEADACHES , DIZZINESS Medications Home Medications Medication Instructions Recorded Confirmed Last Taken Gwendolyn-D 24 Hour 1 tab PO QPM 02/22/19 10/03/20 02/20/19 cholecalciferol (vitamin D3) 2,000 unit PO QAM 02/22/19 10/03/20 09/07/19 [Vitamin D3] lorazepam [Ativan] 0.5 mg PO HS 02/28/19 10/03/20 Unknown acetaminophen [Tylenol Extra 1,000 mg PO Q4H PRN 09/08/19 10/03/20 09/07/19 1 9:00 Strength] ibuprofen [Motrin IB] 800 mg PO TID PRN 09/08/19 10/03/20 09/07/19 19:00 mometasone 1 applic TOPICAL BID PRN 09/08/19 10/03/20 Unknown ondansetron HCl [Zofran] 4 mg PO Q6H PRN #6 tab 09/08/19 10/03/20 Unknown polyethylene glycol 3350 [Miralax] 17 g PO QAM 06/04/20 10/03/20 Unknown famotidine [Pepcid AC] 10 mg PO QPM PRN 07/09/20 10/18/20 Unknown fluticasone propionate [Flonase] 2 spray INTRANASAL QAM 07/09/20 10/03/20 Unknown glucos sul [id number]-lctww-C-Mn 1 cap PO QAM 07/09/20 10/03/20 Unknown [Glucosamine Chondroitin] Bifidobacterium infantis [Align] 10 mg PO QAM 08/26/20 10/03/20 Unknown biotin 10,000 mcg PO QAM 08/26/20 10/03/20 Unknown fish,bora,flax oils-om3,6,9no1 1 cap PO QAM 08/26/20 10/03/20 Unknown [Joaquin 3-6-9 Complex] magnesium 200 mg PO QAM 08/26/20 10/03/20 Unknown red yeast rice 600 mg PO PM 08/26/20 10/03/20 Unknown [id number] 1 cap PO QAM 08/26/20 10/03/20 Unknown zinc sulfate-vitamin C [Vitamin C 1 tab PO QAM 08/26/20 10/03/20 Unknown with Zinc] buspirone 5 mg PO TID 10/03/20 10/03/20 Unknown lutein 10 mg PO QAM 10/18/20 10/18/20 Unknown Past Medical History Medical History Borderline high cholesterol Diet controlled Depression Fall Aug 02, 2020, finished steroid, no further issues History of intestinal obstruction 2/2 tethered suture from umbilical hernia repair. HTN (hypertension) Leukopenia SEEN BY HEME JUN 06 2020, PT REPORTS BEING TOLD WORKUP WAS FINE. Seasonal allergies Seizure Aug 30, 2020 > [facility] > felt caused by low sodium and taking Wellbutrin > saw neurology from [place] and was cleared per pt Spinal stenosis Spondylisthesis Past Surgical History Surgical History H/O hernia repair Complicated by tethered suture causing bowel obstruction-OK NOW History of colonoscopy History of hand surgery RIGHT & LEFT History of lumpectomy BREAST X3 [id number]-GLONOX LIMB RESTRICTIONS History of shoulder surgery LEFT ROTATOR CUFF S/P exploratory laparotomy (02/25/19) Exploratory laparotomy, lysis of adhesions, excision of suture, closure of enterotomy - Ke Phan MD 02/25/19 [place] teeth extracted Social History Smoking Status: Never smoker Do You Dip or Chew Tobacco: No Hx Alcohol Use: Yes Alcohol type: wine alcohol intake frequency: a few times a week Hx Substance Use: No substance use type: does not use Testing Laboratory Results Laboratory Tests 10/18/20 10/18/20 10/18/20 10:25 10:25 10:25 WBC 3.60 L Hgb 13.4 Hct 39.0 Plt Count 228 PT 10.0 INR 1.0 Sodium 135 L Potassium 3.9 Chloride 103 Carbon Dioxide 25 BUN 17 Creatinine 0.71 Glucose 96 Electrocardiogram Date: 06/13/20 Findings: + NSR @ (70bpm) Sinus arrhythmia. Low voltage QRS. Chest X-Ray Date: 06/13/20 Findings: + NAD Echocardiogram Date: 06/19/20 EF: 60-65% LV Function: normal Other Findings: + LVH (Borderline) Valvular Disease: + no significant valvular disease
[~2020-10-25 10:53] MED LIST: ACETAMINOPHEN 500 MG TAB PO SCH; CeleBREX 200 MG CAP PO SCH; GABAPENTIN 300 MG CAP PO SCH; LR 15ML/HR IV SCH; ceFAZolin 1000MG 1,000 MG/7.5 ML SYR IV SCH
[2020-10-25] MEDS ORDERED: fentaNYL citrate 100 MCG/2 ML VIAL ONE (11:36)
[2020-10-25] MEDS ORDERED: MIDAZOLAM HCL 1 MG/ML 2ML VIAL ONE (11:36)
--- NOTE | 2020-10-25 11:49 | History & Physical Bridge Note ---
Date of Service October 25, 2020 History & Physical Bridge Note I have examined the patient, reviewed the History & Physical and in the interval since the performance of the History & Physical I have noted the following changes of clinical significance: no changes noted
--- NOTE | 2020-10-25 11:51 | History & Physical Report ---
Date of Service October 25, 2020 Assessment & Plan (1) Neurogenic claudication due to lumbar spinal stenosis: Admission and Anticipated Discharge Date Admission Date: L4-S1 decompression fusion History of Present Illness Chief Complaint: Back and leg pain Primary Care Provider: Germán Felton This is a 65-year-old female who presents with chronic persistent back and leg pain. After failing course of nonoperative care she is here for surgical invention. Allergies Allergy/AdvReac Type Severity Reaction Status Date / Time bupropion [From Wellbutrin] AdvReac Severe Verified 10/25/20 11:22 hydrochlorothiazide AdvReac Unknown SEVERE Verified 10/25/20 11:22 HEADACHES , DIZZINESS Home Medications Medication Instructions Recorded Confirmed Type Gwendolyn-D 24 Hour 1 tab PO QPM 02/22/19 10/25/20 History cholecalciferol (vitamin D3) 2,000 unit PO QAM 02/22/19 10/25/20 History [Vitamin D3] lorazepam [Ativan] 0.5 mg PO HS 02/28/19 10/25/20 History acetaminophen [Tylenol Extra 1,000 mg PO Q4H PRN 09/08/19 10/25/20 History Strength] ibuprofen [Motrin IB] 800 mg PO TID PRN 09/08/19 10/25/20 History mometasone 1 applic TOPICAL BID PRN 09/08/19 10/25/20 History ondansetron HCl [Zofran] 4 mg PO Q6H PRN #6 tab 09/08/19 10/25/20 Rx polyethylene glycol 3350 [Miralax] 17 g PO QAM 06/04/20 10/25/20 History famotidine [Pepcid AC] 10 mg PO QPM PRN 07/09/20 10/25/20 History fluticasone propionate [Flonase] 2 spray INTRANASAL QAM 07/09/20 10/25/20 History glucos sul [id number]-cmd-[id number]-C-Mn 1 cap PO QAM 07/09/20 10/25/20 History [Glucosamine Chondroitin] Bifidobacterium infantis [Align] 10 mg PO QAM 08/26/20 10/25/20 History biotin 10,000 mcg PO QAM 08/26/20 10/25/20 History fish,bora,flax oils-om3,6,9no1 1 cap PO QAM 08/26/20 10/25/20 History [[place] 3-6-9 Complex] magnesium 200 mg PO QAM 08/26/20 10/25/20 History red yeast rice 600 mg PO PM 08/26/20 10/25/20 History [id number] 1 cap PO QAM 08/26/20 10/25/20 History zinc sulfate-vitamin C [Vitamin C 1 tab PO QAM 08/26/20 10/25/20 History with Zinc] buspirone 5 mg PO BID 10/03/20 10/25/20 History lutein 10 mg PO QAM 10/18/20 10/25/20 History Past Med/Surg History Medical History Borderline high cholesterol Diet controlled Depression Fall Aug 02, 2020, finished steroid, no further issues History of intestinal obstruction 2/2 tethered suture from umbilical hernia repair. HTN (hypertension) Leukopenia SEEN BY HEME JUN 06 2020, PT REPORTS BEING TOLD WORKUP WAS FINE. Seasonal allergies Seizure Aug 30, 2020 > [facility] > felt caused by low sodium and taking Wellbutrin > saw neurology from [place] and was cleared per pt Spinal stenosis Spondylisthesis Surgical History H/O hernia repair Complicated by tethered suture causing bowel obstruction-OK NOW History of colonoscopy History of hand surgery RIGHT & LEFT History of lumpectomy BREAST X3 [id number] LIMB RESTRICTIONS History of shoulder surgery LEFT ROTATOR CUFF S/P exploratory laparotomy (02/25/19) Exploratory laparotomy, lysis of adhesions, excision of suture, closure of enterotomy - Ke Phan MD 02/25/19 [place] teeth extracted Social History Smoking Status: Never smoker Second Hand Exposure: Yes (as kid); Do You Dip or Chew Tobacco: No; Tobacco Cessation Education Requested by Patient: No Hx Alcohol Use: Yes Alcohol type: wine Alcohol type Comment: socially Hx Substance Use: No Preferred Language: Kazakh Communication Ability: Effective Power Wheelchair Mechanic Required: No Beliefs That Will Affect Care: None marital status: Current Living Situation: Spouse Other Information That Helps Us Care for You: No Feels Safe at Home: Yes Safety Concerns: Feels Safe At This Time Assistive Devices: Contacts Physical Exam Physical Exam: Patient is alert and oriented Heart regular in rhythm Lungs clear to auscultation Results & Data ([facility]) Vital Signs (Past 12 Hours) Vital Signs Temp Pulse Resp BP Pulse Ox 10/25/20 11:33 36.7 C 73 18 166/94 H 100
[2020-10-25] MEDS ORDERED: BACITRACIN INJ 50,000 UNIT VIAL ONE (12:18)
[2020-10-25] MEDS ORDERED: BUPIVACAINE/EPINEPHRINE 0.5% MPF 1:200,000 30 ML VIAL ONE (12:18)
[2020-10-25] MEDS ORDERED: ONDANSETRON INJ 2 MG/ML 2 ML VIAL IV PRN ×2 (12:28→16:30)
[2020-10-25] MEDS ORDERED: fentaNYL citrate 100 MCG/2 ML VIAL IV PRN (12:28)
[2020-10-25] MEDS ORDERED: HYDROmorphone INJ 1 MG/ML SYRINGE IV PRN ×2 (12:28→16:30)
[2020-10-25] MEDS ORDERED: ePHEDrine sulfate 50 MG/ML AMP IV PRN (12:28)
[2020-10-25] MEDS ORDERED: ATROPINE SULFATE 0.1 MG/ML 10ML SYR IV PRN (12:28)
[2020-10-25] MEDS ORDERED: HYDROmorphone INJ 2 MG/ML SYR/VIAL ONE (12:55)
[2020-10-25] MEDS ORDERED: GLYCOPYRROLATE 0.2 MG/ML VIAL ONE (12:58)
[2020-10-25] MEDS ORDERED: ONDANSETRON INJ 2 MG/ML 2 ML VIAL ONE (12:58)
[2020-10-25] MEDS ORDERED: ROCURONIUM BROMIDE 10 MG/ML 5 ML VIAL IV ONE ×3 (12:58→14:01)
[2020-10-25] MEDS ORDERED: PROPOFOL IV EMULSION 10 MG/ML 20 ML VIAL IV ONE (12:58)
[2020-10-25] MEDS ORDERED: NEOSTIGMINE METHYLSULFATE 1 MG/ML 10ML VIAL ONE (12:58)
[2020-10-25] MEDS ORDERED: DEXAMETHASONE SOD INJ 4 MG/ML VIAL ONE (12:58)
[2020-10-25] MEDS ORDERED: LIDOCAINE HCL 2% 2 ML VIAL/AMP(20MG/ML) INFIL ONE (12:58)
[2020-10-25] MEDS ORDERED: LARYING-O-JET KIT (LTA) ONE (12:58)
[2020-10-25] MEDS ORDERED: ePHEDrine sulfate 50 MG/ML SYR ONE (12:58)
[2020-10-25] MEDS ORDERED: PHENYLEPHRINE 100MCG/ML 5ML SYR ONE (13:01)
[2020-10-25] MEDS ORDERED: FLOSEAL HEMOSTATIC MATRIX 10ML TOP ONE (14:21)
--- NOTE | 2020-10-25 14:32 | Operative Report ---
Post Operative Report Pre & Post Diagnosis Operation Date: 10/25/20 12:25 Pre-Op Diagnosis: Spinal Stenosis, Lumbar Region with Neurogenic Claudication Post-Op Diagnosis: Spinal Stenosis, Lumbar Region with Neurogenic Claudication I identified the patient and participated in the time-out.: Yes Procedure Operation Date: 10/25/20 12:25 Actual Procedures #1 lumbar decompression with bilateral medial facetectomies and foraminotomies L3-4 L4-5 and L5-S1 per #2 posterior spinal fusion L4-5 L5-S1. #3 placement posterior instrumentation L4-5 L5-S1. #4 interbody fusion L4-L5. #5 placement peek cage 10 x 22 mm at L4-L5. #6 placement locally harvested morselized autograft in the posterior gutters. #7 placement infuse collagen sponge, master graft in the posterior lateral gutters and I factor in the interbody space. Surgeon Bayron Carrillo, Probation Agent Riaz Miles Estimated Blood Loss 75 Findings Consistent with Post-Op Diagnosis Specimens None Indications This is a 65-year-old female who presents with above-mentioned diagnosis after failed extensive course of nonoperative care she is here for the above-mentioned procedure. Description of Procedure Patient was met with identified informed consent obtained. Patient was then taken to the operative suite underwent a patient placed in a prone position just table top Bean frame. All bony prominences well-padded eyes inspected to ensure no external pressure placed upon the. This point the lumbar spine was pr epped and draped in a sterile fashion. Sharp dissection with the assistance of Bovie cautery was performed down to and exposing the lamina and transverse processes of L for L5 and sacral ala bilaterally. From caudal cephalad fashion complete laminectomy L5 L4 partial laminectomy of L3 was performed including bilateral medial facetectomies and foraminotomies addressing severe spinal stenosis. Pedicle screws were then placed in L4-L5 and S1 levels bilaterally with assistance of fluoroscopy and the proper sized brigette placed. By way of a transforaminal portion right a complete discectomy of L4-5 was performed endplates curetted to subcortical being bone and a 11 x 22 mm peek cage filled with I factor tapped in position. The rods were then compressed and locked in final position bilaterally. The transverse processes of L4-L5 and sacral ala were burred to subcortical being bone. Infuse collagen sponge master graft local autograft was placed in the posterior gutters. 15 round GERALDINE drain i nserted. The incision was then closed with 1 Vicryl the fascia 2-0 Vicryl subcutaneously and 4 Monocryl for final skin closure. Steri-Strip sterile dressings placed. Patient will continue PACU stable condition. Please note spinal cord monitoring was utilized at the procedure no changes noted. Lastly Riaz morse was present at the entire surgery involved the patient positioning complex portions of the surgery and final skin closure. I attest to the content of the Intraoperative Record and any orders documented therein. Any exceptions are noted below.
--- NOTE | 2020-10-25 14:39 | Fluoroscopy Report ---
FL lumbar spine 2-3V CLINICAL HISTORY: L4-S1 DECOMPRESSION/FUSION COMPARISON STUDY: None. FLUOROSCOPY TIME: 27 seconds. FLUOROSCOPIC IMAGES: 2 FINDINGS: Fluoroscopy was provided during L4-L5 discectomy with interbody spacer placement. Posterior decompression is noted. There are bilateral pedicle screws at the L4, L5 and S1 levels with intercon necting rods. Hardware is intact. There are no unexpected radiopaque foreign bodies. IMPRESSION: Fluoroscopy provided during L4-L5 discectomy with posterior decompression and bilateral pedicle screw fusion from L4 through S1. ACT 112: Negative or not required by law. Electronically signed by: Gerry Mcdonnell M.D. 10/25/2020 2:38 PM
--- NOTE | 2020-10-25 15:15 | Anesthesiology Progress Note ---
Date of Service October 25, 2020 Anesthesia Post Procedure Vital Signs Vital Signs: Temp Pulse Pulse Resp BP BP Pulse Ox 10/25/20 15:05 81 18 138/73 98 10/25/20 14:55 83 18 147/75 H 97 10/25/20 14:47 97.0 F L 102 H 18 162/77 H 97 10/25/20 11:33 98.1 F 73 18 166/94 H 100 Pain Intensity Back: Pain Intensity: 5 Transfer of Care Handoff Completed per policy Notes Mental Status: alert / awake / arousable and participated in evaluation Patient Amnestic to Procedure: Yes Nausea / Vomiting: adequately controlled Pain: adequately controlled Airway Patency, RR, SpO2: stable & adequate BP & HR: stable & adequate Hydration State: stable & adequate Anesthetic Complications: no major complications apparent and Pt Satisfied with anesthetic care
[2020-10-25] MEDS ORDERED: DO NOT ADMINISTER PNEUMOCOCCAL VACCINE PRN (16:30)
[2020-10-25] MEDS ORDERED: ONDANSETRON 4 MG OD TAB PO PRN (16:30)
[2020-10-25] MEDS ORDERED: ACETAMINOPHEN 1,000 MG/100 ML VIAL IV PRN (16:30)
[2020-10-25] MEDS ORDERED: MAGNESIUM HYDROXIDE SUSP 30 ML UDC PO PRN (16:30)
[2020-10-25] MEDS ORDERED: MOMETASONE FUROATE 0.1% OINT 15 GM TUBE EXT PRN (16:30)
[2020-10-25] MEDS ORDERED: hydrOXYzine HCl 25 MG TAB PO PRN (16:30)
[2020-10-25] MEDS ORDERED: NALOXONE HCL 0.4 MG/1 ML VIAL/CARP IV PRN (16:30)
[2020-10-25] MEDS ORDERED: bisacodyL 10 MG SUPP PR PRN (16:30)
[2020-10-25] MEDS ORDERED: DO NOT ADMINISTER FLU VACCINE PRN (16:30)
[2020-10-25] MEDS ORDERED: FAMOTIDINE 20 MG TAB PO PRN (16:30)
[2020-10-25] MEDS ORDERED: METOCLOPRAMIDE HCL INJ 5 MG/ML 2 ML VIAL IV PRN (16:30)
[2020-10-25] MEDS ORDERED: diphenhydrAMINE Capsule 25 MG CAP PO PRN (16:30)
[2020-10-25] MEDS ORDERED: LORazepam 0.5 MG TAB PO PRN ×2 (16:30→17:39)
[2020-10-25] MEDS ORDERED: ALUMINUM/MAGNESIUM SUSP 30 ML UDC PO PRN (16:30)
[2020-10-25] MEDS: LACTATED RINGER'S 1,000 ML IV SCH ×2 (16:30→23:24)
[2020-10-25] MEDS ORDERED: SOD PHOSPHATE/SOD BIPHOSPHATE ENEMA 132 ML BTL PR PRN (16:30)
[2020-10-25] MEDS ORDERED: FAMOTIDINE 10 MG TABLET PO PRN (16:30)
[2020-10-25] MEDS ORDERED: LORazepam 0.5 MG/1 ML VIAL IV PRN (16:30)
[2020-10-25] MEDS ORDERED: HYDROmorphone INJ 0.5 MG/0.5 ML SYR IV PRN (16:30)
[2020-10-25] MEDS ORDERED: PROMETHAZINE HCL 12.5 MG in SODIUM CHLORIDE 0.9% 50 ML IV PRN (16:30)
--- NOTE | 2020-10-25 16:50 | Hospitalist Consultation ---
Date of Consultation October 25, 2020 Assessment & Plan (1) S/P spinal surgery: This is a 65yo F with a PMH of generalized anxiety disorder, HTN, hyperlipidemia and other medical problems listed below who is POD#0 s/p lumbar decompression and fusion L3-S1 by Dr. Carrillo. POD#0 s/p lumbar decompression and fusion L3-S1 by Dr. 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 No longer on fluid restriction or lasix Pre-op Na 135. Repeating BMP post-operatively (3) History of seizure: History of provoked seizure requiring admission to [facility] August 2020 attributed to Wellbutrin medication as well as hyponatremia 2/2 SIADH Wellbutrin has been discontinued and sodium has returned to normal range Received neuro clearance in [place]. No recurrent seizures and not on any AED medications (4) Anxiety: Continue Ativan 0.5mg HS PRN (5) HTN (hypertension): Not on any home medications currently. Normotensive. Continue to monitor (6) HLD (hyperlipidemia): Diet controlled PCP: Germán Felton ([place]) Dispo: Per primary service Patient seen in collaboration with Dr. Larkin. Please see addendum. Supervising Physician Co-Signing Physician Notes Patient seen and examined by me, care coordinated with Efraín Tripathi PA-C, please refer to her note above for further detail. Pt is a 65 yo F with a PMH of generalized anxiety disorder, HTN, HLD, and other medical problems listed below who is POD#0 s/p lumbar decompression and fusion L3-S1 by Dr. Carrillo. Patient is feeling well postoperatively. She is currently laying in bed, in no acute distress only feeling tired. No shortness of breath, chest pain, no nausea. She is moving her extremities and feeling her toes. She is otherwise answering all questions appropriately, lungs are clear to auscultation bilaterally, without any wheezing rhonchi or crackles. Heart sounds regular. Abdomen soft, nontender, nondistended. Skin is warm, dry, well-perfused. Patient was admitted in August 2020 after seizure episode thought to have been provoked by Wellbutrin medication as well as SIADH hyponatremia. Wellbutrin has been discontinued and sodium has returned to normal range. Patient no longer has fluid restriction. We will check her sodium level now, and will continue to monitor while inpatient. Continue closely monitor hemodynamic status and also check for post-op anemia. MD Kaila History of Present Illness Reason for Consultation: post op med mgmt Attending Physician: Bayron Carrillo DO History of Present Illness This is a 65yo F with a PMH of generalized anxiety disorder, HTN, hyperlipidemia and other medical problems listed below who is POD#0 s/p lumbar decompression and fusion L3-S1 by Dr. Carrillo. Patient is feeling well postoperatively. End orsing mild surgical site pain but no paresthesias in lower extremities. Denies any lightheadedness, chest pain, shortness of breath, nausea, vomiting, abdominal pain. Roche catheter in place draining urine. No diarrhea. Patient was admitted in August 2020 after seizure episode thought to have been provoked by Wellbutrin medication as well as SIADH hyponatremia. Wellbutrin has been discontinued and sodium has returned to normal range. Patient no longer has fluid restriction. No recurrent seizures and is not on any AEDs. PCP is Dr. Felton in [place]. Allergies Allergy/AdvReac Type Severity Reaction Status Date / Time bupropion [From Wellbutrin] AdvReac Severe Verified 10/25/20 11:22 hydrochlorothiazide AdvReac Unknown SEVERE Verified 10/25/20 11:22 HEADACHES , DIZZINESS Home Medications Medication Instructions Recorded Confirmed Type Gwendolyn-D 24 Hour 1 tab PO QPM 02/22/19 10/25/20 History cholecalciferol (vitamin D3) 2,000 unit PO QAM 02/22/19 10/25/20 History [Vitamin D3] lorazepam [Ativan] 0.5 mg PO HS 02/28/19 10/25/20 History acetaminophen [Tylenol Extra 1,000 mg PO Q4H PRN 09/08/19 10/25/20 History Strength] ibuprofen [Motrin IB] 800 mg PO TID PRN 09/08/19 10/25/20 History mometasone 1 applic TOPICAL BID PRN 09/08/19 10/25/20 History ondansetron HCl [Zofran] 4 mg PO Q6H PRN #6 tab 09/08/19 10/25/20 Rx polyethylene glycol 3350 [Miralax] 17 g PO QAM 06/04/20 10/25/20 History famotidine [Pepcid AC] 10 mg PO QPM PRN 07/09/20 10/25/20 History fluticasone propionate [Flonase] 2 spray INTRANASAL QAM 07/09/20 10/25/20 History glucos sul [id number] 1 cap PO QAM 07/09/20 10/25/20 History [Glucosamine Chondroitin] Bifidobacterium infantis [Align] 10 mg PO QAM 08/26/20 10/25/20 History biotin 10,000 mcg PO QAM 08/26/20 10/25/20 History fish,bora,flax oils-om3,[id number] 1 cap PO QAM 08/26/20 10/25/20 History [[place] 3-6-9 Complex] magnesium 200 mg PO QAM 08/26/20 10/25/20 History red yeast rice 600 mg PO PM 08/26/20 10/25/20 History [id number] 1 cap PO QAM 08/26/20 10/25/20 History zinc sulfate-vitamin C [Vitamin C 1 tab PO QAM 08/26/20 10/25/20 History with Zinc] buspirone 5 mg PO BID 10/03/20 10/25/20 History lutein 10 mg PO QAM 10/18/20 10/25/20 History Patient History Medical History (Updated 10/25/20 @ 17:28 by Bhumi Kenny PA-C) Anxiety Borderline high cholesterol Diet controlled Depression Fall Aug 02, 2020, finished steroid, no further issues History of intestinal obstruction 2/2 tethered suture from umbilical hernia repair. History of seizure HTN (hypertension) Hyponatremia Leukopenia SEEN BY HEME JUN 06 2020, PT REPORTS BEING TOLD WORKUP WAS FINE. Seasonal allergies Seizure Aug 30, 2020 > [facility] > felt caused by low sodium and taking Wellbutrin > saw neurology from [place] and was cleared per pt Spinal stenosis Spondylisthesis Surgical History (Updated 10/25/20 @ 17:28 by Bhumi Kenny PA-C) H/O hernia repair Complicated by tethered suture causing bowel obstruction-OK NOW History of colonoscopy History of hand surgery RIGHT & LEFT History of lumpectomy BREAST X3 [id number] LIMB RESTRICTIONS History of shoulder surgery LEFT ROTATOR CUFF S/P exploratory laparotomy (02/25/19) Exploratory laparotomy, lysis of adhesions, excision of suture, closure of enterotomy - Ke Phan MD 02/25/19 Status post inguinal hernia repair [place] teeth extracted Social History (Updated 10/25/20 @ 17:25 by Bhumi Kenny PA-C) Smoking Status: Never smoker Second Hand Exposure: Yes (as kid); Do You Dip or Chew Tobacco: No; Tobacco Cessation Education Requested by Patient: No Hx Alcohol Use: Yes Alcohol type: wine Alcohol type Comment: socially Alcohol Intake Frequency: 2-4 x/Month Hx Substance Use: No Preferred Language: Mohawk Communication Ability: Effective Benefits Director Required: No Beliefs That Will Affect Care: None marital status: Current Living Situation: Spouse Other Information That Helps Us Care for You: No Feels Safe at Home: Yes Safety Concerns: Feels Safe At This Time Assistive Devices: Contacts Review of Systems Review of Systems: At least ten systems reviewed and negative except as noted in the HPI. Physical Exam Physical Exam: General Appearance: WD/WN, vitals as above, NAD, sitting up in bed, pleasant, conversing easily Head: normocephalic, atraumatic Eyes: normal inspection, PERRL, conjunctivae normal, anicteric sclerae ENT: external ear and nose normal, oropharynx normal Neck: normal visual inspection, trachea midline, no thyromegaly Respiratory: normal respiratory effort, lungs clear to auscultation, no wheeze, rales, rhonchi. No accessory muscle use Cardiovascular: regular rate, rhythm, no murmur, normal peripheral pulses, no BLE edema. Vessels: no JVD Chest: normal inspection of chest Abdomen/GI: normal bowel sounds, soft, nontender, no hepatosplenomegaly Extremities/Musculoskeletal: Lumbar dressing c/d/i. GERALDINE drain visualized with serosanguineous output. No cyanosis or clubbing, extremities motor strength 5/5 Neurologic: PERRL, EOMI, accommodation nl, no face palsy, no dysarthria, CN's II-XI intact bilaterally and moves all extremities Psychiatric: A+Ox3, euthymic affect Skin: no rashes, normal color, warm/dry Results & Data Results & Data ([facility]) Vital Signs (Past 12 Hours) Vital Signs Temp Pulse Pulse Pulse Resp BP BP 10/25/20 16:44 36.4 C L 62 18 131/70 10/25/20 16:15 36.7 C 77 16 138/72 10/25/20 16:00 36.5 C 61 14 141/77 H 10/25/20 15:50 70 14 141/67 H 10/25/20 15:40 63 14 122/66 10/25/20 15:30 70 14 143/68 H 10/25/20 15:15 36.4 C L 90 18 144/81 H 10/25/20 15:05 81 18 138/73 10/25/20 14:55 83 18 147/75 H 10/25/20 14:47 36.1 C L 102 H 18 162/77 H 10/25/20 11:33 36.7 C 73 18 166/94 H Pulse Ox 10/25/20 16:44 92 10/25/20 16:15 97 10/25/20 16:00 98 10/25/20 15:50 98 10/25/20 15:40 98 10/25/20 15:30 98 10/25/20 15:15 98 10/25/20 15:05 98 10/25/20 14:55 97 10/25/20 14:47 97 10/25/20 11:33 100 Laboratory Results Pertinent pre-op labwork (10/18/20): WBC 3.60 RBC 13.4 PLT 228 Sodium 135 Potassium 3.9 BUN 17 Cr 0.71
[2020-10-25 18:41] LABS: Calcium 8.6 mg/dl (8.5-10.1); Creatinine Clr Calc Pharmacy 69.6 ml/min; Est GFR (African American) 102.9; Est GFR (Non-African American) 88.8; Potassium 3.9 mmol/L (3.5-5.1)
[2020-10-25] MEDS: KETOROLAC TROMETHAMINE 15 MG/ML VIAL IV SCH ×2 (18:49→23:11)
[2020-10-25] MEDS: ceFAZolin 1000MG 1,000 MG/7.5 ML SYR IV SCH (19:48)
[2020-10-25] MEDS: busPIRone 5 MG TAB PO SCH (21:00)
[2020-10-25] MEDS ORDERED: FEXOFENADINE 60 MG TAB PO SCH (21:00)
[2020-10-25] MEDS ORDERED: NON-FORMULARY MEDICATION (Red Yeast Rice 600 mg Tablet) PO SCH (21:00)
[2020-10-25] MEDS: DOCUSATE SODIUM/SENNA 50/8.6MG TAB PO SCH (21:00)
[2020-10-25] MEDS ORDERED: LORazepam 0.5 MG TAB PO SCH (21:00)
[2020-10-25] MEDS ORDERED: FEXOFENADINE 60MG/PSEUDOEPHEDRINE 120MG TAB PO SCH (21:00)
[2020-10-25] MEDS: FEXOFENADINE 60 MG TAB PO SCH (21:39)
[2020-10-26] MEDS: ceFAZolin 1000MG 1,000 MG/7.5 ML SYR IV SCH (04:04)
[2020-10-26] MEDS: POLYETHYLENE (MIRALAX) 17 GM PACK PO SCH ×4 (05:44→23:47)
[2020-10-26] MEDS: KETOROLAC TROMETHAMINE 15 MG/ML VIAL IV SCH ×2 (05:44→12:47)
[2020-10-26 05:58] LABS: Basophils # (auto) 0.02 K/uL (0-0.2); Basophils % (auto) 0.3 %; Eosinophils # (auto) 0.01 K/uL (0-0.5); Eosinophils % (auto) 0.1 %; Hematocrit (blood only) 30.1 % (37-47); Hemoglobin 10.5 g/dL (12.0-16.0); Immature Granulocytes # (auto) 0.01 K/uL (0.00-0.02); Immature Granulocytes % (auto) 0.1 %; Lymphocytes # (auto) 1.35 K/uL (1.2-3.4); Lymphocytes % (auto) 19.6 %; Mean Corpuscular Hemoglobin 32.4 pg (25-34); Mean Corpuscular Hgb Conc 34.9 g/dL (32-36); Mean Corpuscular Volume 92.9 fL (80-100); Mean Platelet Volume 10.2 fL (7.4-10.4); Monocytes # (auto) 0.67 K/uL (0.11-0.59); Monocytes % (auto) 9.7 %; Neutrophils # (auto) 4.82 K/uL (1.4-6.5); Neutrophils % (auto) 70.2 %; Platelet Count 170 K/uL (130-400); RDW Coefficient of Variation 12.6 % (11.5-14.5); RDW Standard Deviation 43.3 fL (36.4-46.3); Red Blood Count 3.24 M/uL (4.2-5.4); White Blood Count 6.88 K/uL (4.8-10.8)
[2020-10-26 06:31] LABS: BUN Creatinine Ratio 13.5 (10-20); Calcium 8.3 mg/dl (8.5-10.1); Creatinine Clr Calc Pharmacy 61.8 ml/min; Est GFR (Non-African American) 76.8; Potassium 3.9 mmol/L (3.5-5.1)
--- NOTE | 2020-10-26 07:34 | Hospitalist Progress Note ---
Date of Service October 26, 2020 Assessment & Plan (1) S/P spinal surgery: This is a 65yo F with a PMH of generalized anxiety disorder, HTN, hyperlipidemia and other medical problems listed below who is POD#0 s/p lumbar decompression and fusion L3-S1 by Dr. Carrillo. POD#1 s/p lumbar decompression and fusion L3-S1 by Dr. Carrillo Patient is doing well post-operatively Per ortho for pain control, wound care, anticoagulation, bowel regimen and activities Monitor H&H (pre-op hgb 13.4), continue incentive spirometry, PT/OT when appropriate Current Hgb 10.5 Acute blood loss and dilutional anemia Expected, post-op anemia Current hemoglobin 10.5, down from 13.4 preop Patient is asymptomatic No need for blood transfusion at this time Continue to monitor H&H (2) 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 No longer on fluid restriction or lasix Pre-op Na 135. Post-op 138 Current 133 Cont. to monitor while inpatient (3) History of seizure: History of provoked seizure requiring admission to [facility] August 2020 attributed to Wellbutrin medication as well as hyponatremia 2/2 SIADH Wellbutrin has been discontinued and sodium has returned to normal range Received neuro clearance in [place]. No recurrent seizures and not on any AED medications (4) Anxiety: Continue Ativan 0.5mg HS PRN (5) HTN (hypertension): Not on any home medications currently. Normotensive. Continue to monitor (6) HLD (hyperlipidemia): Diet controlled PCP: Germán Felton ([place]) Dispo: Per primary service Admission and Anticipated Discharge Date Admission Date: October 25, 2020 Subjective Patient seen in follow-up for medical management, patient after back surgery Currently patient is lying in bed, in no acute distress Denies any fevers, chills, chest pain, shortness of breath, abdomen pain, nausea or vomiting Overall patient states that she feels well She is passing flatus, no BM yet She still has Roche catheter placed and draining clear yellow urine Plan for PT today Review of Systems Review of Systems: All systems reviewed & are unremarkable except as noted in HPI & below Constitutional: no fever and no chills Respiratory: no cough and no dyspnea Cardiovascular: no chest pain and no palpitations Gastrointestinal: no abdominal pain, no nausea and no vomiting Physical Exam Physical Exam: General Appearance: WD/WN, vitals as above, NAD, sitting up in bed, pleasant, conversing easily Head: normocephalic, atraumatic Eyes: normal inspection, PERRL, conjunctivae normal, anicteric sclerae ENT: external ear and nose normal, oropharynx normal Neck: normal visual inspection, trachea midline, no thyromegaly Respiratory: normal respiratory effort, lungs clear to auscultation, no wheeze, rales, rhonchi. No accessory muscle use Cardiovascular: regular rate, rhythm, no murmur, normal peripheral pulses, no BLE edema. Vessels: no JVD Chest: normal inspection of chest Abdomen/GI: normal bowel sounds, soft, nontender Extremities/Musculoskeletal: Lumbar dressing c/d/i. GERALDINE drain visualized with serosanguineous output. No cyanosis or clubbing, extremities motor strength 5/5 Neurologic: PERRL, EOMI, no face palsy, no dysarthria, CN's II-XI intact bilaterally and moves all extremities : Roche catheter placed, drains clear yellow urine Psychiatric: A+Ox3, euthymic affect Skin: no rashes, normal color, warm/dry Results & Data Results & Data ([facility]) Vital Signs (Past 12 Hours) Vital Signs Temp Pulse Resp BP Pulse Ox 10/26/20 07:29 37.1 C 81 18 132/72 99 10/26/20 03:17 36.7 C 68 16 122/68 99 10/25/20 23:01 36.7 C 82 16 114/63 97 Laboratory Results 10/26/20 10/26/20 10/25/20 Range/Units 05:35 05:35 17:49 WBC 6.88 (4.8-10.8) K/uL RBC 3.24 L (4.2-5.4) M/uL Hgb 10.5 L (12.0-16.0) g/dL Hct 30.1 L (37-47) % MCV 92.9 (80-100) fL MCH 32.4 (25-34) pg MCHC 34.9 (32-36) g/dL RDW Std Deviation 43.3 (36.4-46.3) fL RDW Coeff of Bj 12.6 (11.5-14.5) % Plt Count 170 (130-400) K/uL MPV 10.2 (7.4-10.4) fL Immature Gran % (Auto) 0.1 % Neut % (Auto) 70.2 % Lymph % (Auto) 19.6 % [place] % (Auto) 9.7 % Eos % (Auto) 0.1 % Baso % (Auto) 0.3 % Neut # (Auto) 4.82 (1.4-6.5) K/uL Lymph # (Auto) 1.35 (1.2-3.4) K/uL [place] # (Auto) 0.67 H (0.11-0.59) K/uL Eos # (Auto) 0.01 (0-0.5) K/uL Baso # (Auto) 0.02 (0-0.2) K/uL Immature Gran # (Auto) 0.01 (0.00-0.02) K/uL Sodium 133 L 138 (136-145) mmol/L Potassium 3.9 3.9 (3.5-5.1) mmol/L Chloride 102 106 (98-107) mmol/L Carbon Dioxide 25 25 (21-32) mmol/L Anion Gap 6.0 7.0 (3-11) BUN 11 16 (7-18) mg/dl Creatinine 0.80 0.71 (0.6-1.2) mg/dl Est Cr Clr Drug Dosing 61.8 69.6 ml/min Est GFR ( Amer) 89.0 102.9 Est GFR (Non-Af Amer) 76.8 88.8 BUN/Creatinine Ratio 13.5 23.0 H (10-20) Glucose 104 H 159 H (70-99) mg/dl Calcium 8.3 L 8.6 (8.5-10.1) mg/dl Hepatitis C Ab Screen (Neg) Blood Type Antibody Screen Crossmatch 10/25/20 10/25/20 Range/Units 16:37 11:18 WBC (4.8-10.8) K/uL RBC (4.2-5.4) M/uL Hgb (12.0-16.0) g/dL Hct (37-47) % MCV (80-100) fL MCH (25-34) pg MCHC (32-36) g/dL RDW Std Deviation (36.4-46.3) fL RDW Coeff of Bj (11.5-14.5) % Plt Count (130-400) K/uL MPV (7.4-10.4) fL Immature Gran % (Auto) % Neut % (Auto) % Lymph % (Auto) % [place] % (Auto) % Eos % (Auto) % Baso % (Auto) % Neut # (Auto) (1.4-6.5) K/uL Lymph # (Auto) (1.2-3.4) K/uL [place] # (Auto) (0.11-0.59) K/uL Eos # (Auto) (0-0.5) K/uL Baso # (Auto) (0-0.2) K/uL Immature Gran # (Auto) (0.00-0.02) K/uL Sodium (136-145) mmol/L Potassium (3.5-5.1) mmol/L Chloride (98-107) mmol/L Carbon Dioxide (21-32) mmol/L Anion Gap (3-11) BUN (7-18) mg/dl Creatinine (0.6-1.2) mg/dl Est Cr Clr Drug Dosing ml/min Est GFR ( Amer) Est GFR (Non-Af Amer) BUN/Creatinine Ratio (10-20) Glucose (70-99) mg/dl Calcium (8.5-10.1) mg/dl Hepatitis C Ab Screen Neg (Neg) Blood Type B Positive Antibody Screen NEGATIVE Crossmatch See Detail Medications Administered Current Inpatient Medications Acetaminophen (Acetaminophen 500 Mg Tab) 1,000 mg PO Q8H PRN PRN Reason: MILD Pain Scale 1,2,3 & Pre PT Stop: 11/24/20 16:29 Al Hydrox/Mg Hydrox/Simethicone (Aluminum/Magnesium Susp 30 Ml Udc) 30 ml PO Q6H PRN PRN Reason: Dyspepsia Stop: 11/24/20 16:29 Ascorbic Acid (Ascorbic Acid 500 Mg Tab) 500 mg PO DAILY [facility] Stop: 11/25/20 08:59 Bisacodyl (Bisacodyl 10 Mg Supp) 10 mg PA DAILY PRN PRN Reason: Constipation Stop: 11/24/20 16:29 Buspirone HCl (Buspirone 5 Mg Tab) 5 mg PO BID [facility] Stop: 11/24/20 20:59 Last Admin: 10/25/20 21:00 Dose: 5 mg Documented by: Diphenhydramine HCl (Diphenhydramine Capsule 25 Mg Cap) 25 mg PO Q6H PRN PRN Reason: Allergic Rhinitis/Insomnia Stop: 11/24/20 16:29 Famotidine (Famotidine 20 Mg Tab) 20 mg PO Q12H PRN PRN Reason: Dyspepsia Stop: 11/24/20 16:29 Fexofenadine HCl (Fexofenadine 60 Mg Tab) 60 mg PO BID [facility] Stop: 11/24/20 20:59 Last Admin: 10/25/20 21:39 Dose: 60 mg Documented by: Fluticasone Propionate (Fluticasone Propionate Na Spr 16 Gm Btl) 2 sprays NA QAM [facility] Stop: 11/25/20 08:59 Hydromorphone HCl (Hydromorphone Inj 0.5 Mg/0.5 Ml Syr) 0.5 mg IV Q3H PRN PRN Reason: MOD pain (scale 4-6) & Pre PT Stop: 11/08/20 16:29 Hydromorphone HCl (Hydromorphone Inj 1 Mg/Ml Syringe) 1 mg IV Q3H PRN PRN Reason: severe pain (scale 7-10) Stop: 11/08/20 16:29 Hydroxyzine HCl (Hydroxyzine Hcl 25 Mg Tab) 25 mg PO Q8H PRN PRN Reason: Anxiety Stop: 11/24/20 16:29 Promethazine HCl 12.5 mg/ (Sodium Chloride) 50.5 mls @ 204 mls/hr IV Q6H PRN PRN Reason: Nausea &/or Vomiting Stop: 11/24/20 16:29 Lorazepam (Ativan) 0.5 mg in 1 mls @ 0.5 mls/min IV Q8H PRN PRN Reason: Sedation/Anxiety Stop: 11/24/20 16:29 Acetaminophen (Ofirmev) 1,000 mg in 100 mls @ 400 mls/hr IV Q8H PRN PRN Reason: MILD Pain Rating 1,2,3 Stop: 10/26/20 16:29 Influenza Virus Vaccine Quadrival (Do Not Administer Flu Vaccine) 1 ea N/A PRN PRN PRN Reason: Notification Stop: 11/24/20 16:29 Ketorolac Tromethamine (Ketorolac Tromethamine 15 Mg/Ml Vial) 15 mg IV Q6H ANNEL Stop: 10/26/20 12:01 Last Admin: 10/26/20 05:44 Dose: 15 mg Documented by: Lorazepam (Lorazepam 0.5 Mg Tab) 0.5 mg PO Q8H PRN PRN Reason: Sedation/Anxiety Stop: 11/24/20 16:29 Lorazepam (Lorazepam 0.5 Mg Tab) 0.5 mg PO HS PRN PRN Reason: Anxiety Stop: 11/24/20 20:59 Magnesium Hydroxide (Magnesium Hydroxide Susp 30 Ml Udc) 30 ml PO DAILY PRN PRN Reason: Constipation Stop: 11/24/20 16:29 Magnesium Oxide (Magnesium Oxide 400 Mg Tab) 400 mg PO QAM ANNEL Stop: 11/25/20 08:59 Metoclopramide HCl (Metoclopramide Hcl Inj 5 Mg/Ml 2 Ml Vial) 10 mg IV Q6H PRN PRN Reason: Nausea &/or Vomiting Stop: 11/24/20 16:29 Mometasone Furoate (Mometasone Furoate 0.1% Oint 15 Gm Tube) 1 appln EXT BID PRN PRN Reason: Dry Eyelids Stop: 11/24/20 16:29 Naloxone HCl (Naloxone Hcl 0.4 Mg/1 Ml Vial/Carp) 0.1 mg IV Q5M PRN; Protocol PRN Reason: Oversedation/Resp Depression Stop: 11/24/20 16:29 Ondansetron HCl (Ondansetron Inj 2 Mg/Ml 2 Ml Vial) 4 mg IV Q6H PRN PRN Reason: Nausea &/or Vomiting Stop: 11/24/20 16:29 Ondansetron HCl (Ondansetron 4 Mg Od Tab) 4 mg PO Q6H PRN PRN Reason: Nausea Stop: 11/24/20 16:29 Oxycodone HCl (Oxycodone Hcl Ir 5 Mg Tab (Immediate Release)) 5 - 10 mg PO Q4H PRN PRN Reason: Moderate-Severe Pain & Pre PT Stop: 11/08/20 16:29 Pneumococcal Polyvalent Vaccine (Do Not Administer Pneumococcal Vaccine) 1 ea N/A PRN PRN PRN Reason: Notification Stop: 11/24/20 16:29 Polyethylene Glycol (Polyethylene (Miralax) 17 Gm Pack) 17 gm PO Q6 ANNEL Stop: 11/25/20 05:59 Last Admin: 10/26/20 05:44 Dose: 17 gm Documented by: Senna/Docusate Sodium (Docusate Sodium/Senna 50/8.6mg Tab) 2 tab PO HS ANNEL Stop: 11/24/20 20:59 Last Admin: 10/25/20 21:00 Dose: 2 tab Documented by: Sodium Biphosphate/Sodium Phosphate (Sod Phosphate/Sod Biphosphate Enema 132 Ml Btl) 132 ml PA ONE PRN PRN Reason: Constipation Stop: 11/24/20 16:29 Vitamin D (Cholecalciferol 1,000 Units 25 Mcg Tab) 2,000 units PO QAM ANNEL Stop: 11/25/20 08:59 Zinc Sulfate (Zinc Sulfate 220 Mg Capsule) 220 mg PO QAM ANNEL Stop: 11/25/20 08:59
--- NOTE | 2020-10-26 07:41 | Orthopedic Progress Note ---
Date of Service October 26, 2020 Assessment & Plan (1) S/P spinal surgery: Patient is doing well. We will start physical therapy. Maintain GERALDINE drain. DVT prophylaxis is in the form of teds and SCDs. Continue with pain control. Continue with aggressive bowel regimen. Admission and Anticipated Discharge Date Admission Date: October 25, 2020 Supervising Physician Co-Signing Physician Notes Dr. Bayron Carrillo Subjective [place] is postoperative day 1 L4-S1 decompression fusion. She is doing well. No radicular leg pain. Back pain is controlled. GERALDINE drain output last shift was 250 cc. H&H is morning are 10.5 and 30.1 respectively. Review of Systems Review of Systems: All systems reviewed & are unremarkable except as noted in HPI & below Physical Exam Physical Exam: Patient's resting in bed. She is alert and oriented x3. No acute distress. Calves are soft nontender bilaterally. Strength is 5/5 bilateral EHL, dorsiflexion, plantarflexion, quadriceps, hamstrings. Lumbar dressing is clean dry and intact. GERALDINE drain intact and functioning. Constitutional: WD/WN, vitals as above Eyes: normal visual reynolds by confrontation ENMT: external ear and nose normal, oropharynx normal Neck: normal visual inspection Respiratory: normal respiratory effort Cardiovascular: Extremities: normal capillary refill Chest (Breasts): Chest: normal inspection of chest Gastrointestinal (Abdomen): Inspection/Auscultation: abdomen normal to in spection Musculoskeletal: no cyanosis or clubbing, extremities motor strength 5/5 Extremities: extremities normal to inspection Skin: no rashes, warm and dry Neurologic: normal touch/pain/proprioception and moves all extremities Psychiatric: A+Ox3, euthymic affect Results & Data ([facility]) Vital Signs (Past 12 Hours) Vital Signs Temp Pulse Resp BP Pulse Ox 10/26/20 07:29 37.1 C 81 18 132/72 99 10/26/20 03:17 36.7 C 68 16 122/68 99 10/25/20 23:01 36.7 C 82 16 114/63 97
[2020-10-26] MEDS ORDERED: COUGH DROP (SUGAR FREE) LOZ 24 LOZ/1 BOX BUCCAL PRN (08:40)
[2020-10-26] MEDS: FLUTICASONE PROPIONATE NA SPR 16 GM BTL SCH (08:55)
[2020-10-26] MEDS: CHOLECALCIFEROL 1,000 UNITS 25 MCG TAB PO SCH (08:56)
[2020-10-26] MEDS: FEXOFENADINE 60 MG TAB PO SCH ×2 (08:56→19:36)
[2020-10-26] MEDS: busPIRone 5 MG TAB PO SCH ×2 (08:56→19:36)
[2020-10-26] MEDS: ASCORBIC ACID 500 MG TAB PO SCH (08:56)
[2020-10-26] MEDS: ZINC SULFATE 220 MG CAPSULE PO SCH (08:56)
[2020-10-26] MEDS: MAGNESIUM OXIDE 400 MG TAB PO SCH (08:56)
[2020-10-26] MEDS ORDERED: BIFIDOBACTERIUM INFANTIS 10.5 MG PO SCH (09:00)
[2020-10-26] MEDS: oxyCODONE HCL IR 5 MG TAB (IMMEDIATE RELEASE) PO PRN ×3 (09:05→22:04)
[2020-10-26] MEDS: DOCUSATE SODIUM/SENNA 50/8.6MG TAB PO SCH (19:36)
[2020-10-27] MEDS: oxyCODONE HCL IR 5 MG TAB (IMMEDIATE RELEASE) PO PRN ×3 (02:15→21:32)
[2020-10-27] MEDS: POLYETHYLENE (MIRALAX) 17 GM PACK PO SCH ×2 (05:20→13:12)
[2020-10-27 06:15] LABS: Hemoglobin 10.8 g/dL (12.0-16.0); Mean Corpuscular Hemoglobin 32.5 pg (25-34); Mean Corpuscular Hgb Conc 34.8 g/dL (32-36); Mean Corpuscular Volume 93.4 fL (80-100); Mean Platelet Volume 10.3 fL (7.4-10.4); Platelet Count 170 K/uL (130-400); RDW Coefficient of Variation 12.6 % (11.5-14.5); RDW Standard Deviation 42.9 fL (36.4-46.3); Red Blood Count 3.32 M/uL (4.2-5.4); White Blood Count 4.65 K/uL (4.8-10.8)
[2020-10-27 06:38] LABS: BUN Creatinine Ratio 16.9 (10-20); Calcium 8.1 mg/dl (8.5-10.1); Creatinine Clr Calc Pharmacy 71.7 ml/min; Est GFR (African American) 105.1; Est GFR (Non-African American) 90.7; Potassium 4.2 mmol/L (3.5-5.1)
[2020-10-27] MEDS ORDERED: SODIUM CHLORIDE 0.9% 1000ML 500 ML IV ONE (08:44)
--- NOTE | 2020-10-27 10:02 | Hospitalist Progress Note ---
Date of Service October 27, 2020 Assessment & Plan (1) S/P spinal surgery: This is a 65yo F with a PMH of generalized anxiety disorder, HTN, hyperlipidemia and other medical problems listed below who is POD#0 s/p lumbar decompression and fusion L3-S1 by Dr. Carrillo. POD#2 s/p lumbar decompression and fusion L3-S1 by Dr. Carrillo Patient is doing well post-operatively Per ortho for pain control, wound care, anticoagulation, bowel regimen and activities Monitor H&H (pre-op hgb 13.4), continue incentive spirometry, PT/OT when appropriate Current Hgb 10.8 Acute blood loss and dilutional anemia Expected, post-op anemia Current hemoglobin 10.8, stable from yesterday at (10.5), but down from 13.4 preop No need for blood transfusion at this time Continue to monitor H&H Episode of lightheadedness, presyncope/syncope -Per nursing staff, happened in the bathroom, and was thought to be a vasovagal episode -Pressures also on the lower side however, therefore will check orthostatics -We will provide 500 cc of normal saline, will also encourage salty crackers intake -Patient also reported taking pain medication and Ativan, which could make her also more lightheaded -Continue to closely monitor (2) 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 No longer on fluid restriction or lasix Pre-op Na 135. Post-op 138 Current 131 Cont. to monitor while inpatient (3) History of seizure: History of provoked seizure requiring admission to [facility] August 2020 attributed to Wellbutrin medication as well as hyponatremia 2/2 SIADH Wellbutrin has been discontinued and sodium has returned to normal range Received neuro clearance in [place]. No recurrent seizures and not on any AED medications (4) Anxiety: Continue Ativan 0.5mg HS PRN (5) HTN (hypertension): Not on any home medications currently. Normotensive. Continue to monitor (6) HLD (hyperlipidemia): Diet controlled PCP: Germán Felton ([facility]) Dispo: Per primary service Admission and Anticipated Discharge Date Admission Date: October 25, 2020 Subjective Patient seen in follow-up for medical management, patient after back surgery Currently patient is lying in bed, in no acute distress However overnight/early this morning, she had episode of lightheadedness, and fainted in the bathroom. Per nursing staff, patient had a vasovagal episode, her blood pressures were also on the lower side. Will check orthostatics, will give bolus of 500 cc of normal saline for now. Sodium also lower at 131, will encourage salty crackers. She did have breakfast this morning and she does feel much better now. Also reports that she took pain medication and Ativan and probably also could be causing her weakness. Denies any fevers, chills, chest pain, shortness of breath, abdomen pain, nausea or vomiting Review of Systems Review of Systems: All systems reviewed & are unremarkable except as noted in HPI & below Constitutional: no fever and no chills Respiratory: no cough and no dyspnea Cardiovascular: no chest pain and no palpitations Gastrointestinal: no abdominal pain, no nausea and no vomiting Physical Exam Physical Exam: General Appearance: WD/WN, vitals as above, NAD, sitting up in bed, pleasant, conversing easily Head: normocephalic, atraumatic Eyes: normal inspection, PERRL, conjunctivae normal, anicteric sclerae ENT: external ear and nose normal, oropharynx normal Neck: normal visual inspection, trachea midline, no thyromegaly Respiratory: normal respiratory effort, lungs clear to auscultation, no wheeze, rales, rhonchi. No accessory muscle use Cardiovascular: regular rate, rhythm, no murmur, normal peripheral pulses, no BLE edema. Vessels: no JVD Chest: normal inspection of chest Abdomen/GI: normal bowel sounds, soft, nontender Extremities/Musculoskeletal: Lumbar dressing c/d/i. GERALDINE drain visualized with serosanguineous output. No cyanosis or clubbing, extremities motor strength 5/5 Neurologic: PERRL, EOMI, no face palsy, no dysarthria, CN's II-XI intact bilaterally and moves all extremities Psychiatric: A+Ox3, euthymic affect Skin: no rashes, normal color, warm/dry Results & Data Results & Data ([facility]) Vital Signs (Past 12 Hours) Vital Signs Temp Pulse Resp BP Pulse Ox 10/27/20 07:08 75 100/63 98 10/27/20 06:23 36.8 C 88 16 97/58 L 97 Laboratory Results 10/27/20 10/27/20 10/25/20 Range/Units 05:40 05:40 11:18 WBC 4.65 L (4.8-10.8) K/uL RBC 3.32 L (4.2-5.4) M/uL Hgb 10.8 L (12.0-16.0) g/dL Hct 31.0 L (37-47) % MCV 93.4 (80-100) fL MCH 32.5 (25-34) pg MCHC 34.8 (32-36) g/dL RDW Std Deviation 42.9 (36.4-46.3) fL RDW Coeff of Bj 12.6 (11.5-14.5) % Plt Count 170 (130-400) K/uL MPV 10.3 (7.4-10.4) fL Sodium 131 L (136-145) mmol/L Potassium 4.2 (3.5-5.1) mmol/L Chloride 99 (98-107) mmol/L Carbon Dioxide 27 (21-32) mmol/L Anion Gap 5.0 (3-11) BUN 12 (7-18) mg/dl Creatinine 0.69 (0.6-1.2) mg/dl Est Cr Clr Drug Dosing 71.7 ml/min Est GFR ( Amer) 105.1 Est GFR (Non-Af Amer) 90.7 BUN/Creatinine Ratio 16.9 (10-20) Glucose 106 H (70-99) mg/dl Calcium 8.1 L (8.5-10.1) mg/dl Crossmatch See Detail
[2020-10-27] MEDS: ACETAMINOPHEN 500 MG TAB PO PRN ×2 (10:09→18:22)
[2020-10-27] MEDS: busPIRone 5 MG TAB PO SCH ×2 (10:10→19:31)
[2020-10-27] MEDS: FLUTICASONE PROPIONATE NA SPR 16 GM BTL SCH (10:10)
[2020-10-27] MEDS: FEXOFENADINE 60 MG TAB PO SCH ×2 (10:10→20:54)
[2020-10-27] MEDS: ZINC SULFATE 220 MG CAPSULE PO SCH (10:11)
[2020-10-27] MEDS: MAGNESIUM OXIDE 400 MG TAB PO SCH (10:11)
[2020-10-27] MEDS: ASCORBIC ACID 500 MG TAB PO SCH (10:11)
[2020-10-27] MEDS: CHOLECALCIFEROL 1,000 UNITS 25 MCG TAB PO SCH (10:11)
--- NOTE | 2020-10-27 11:09 | Orthopedic Progress Note ---
Date of Service October 27, 2020 Assessment & Plan (1) Neurogenic claudication due to lumbar spinal stenosis: Admission and Anticipated Discharge Date Admission Date: October 25, 2020 This time we will continue physical therapy monitor GERALDINE output anticipate possible discharge home as long as she is cleared by medicine tomorrow. Subjective Back pain controlled leg symptoms improved. Physical Exam Physical Exam: On exam she is good strength testing appears comfortable. Results & Data ([facility]) Vital Signs (Past 12 Hours) Vital Signs Temp Pulse Resp BP Pulse Ox 10/27/20 07:08 75 100/63 98 10/27/20 06:23 36.8 C 88 16 97/58 L 97
[2020-10-27] MEDS: DOCUSATE SODIUM/SENNA 50/8.6MG TAB PO SCH (20:53)
[2020-10-27] MEDS ORDERED: POLYETHYLENE (MIRALAX) 17 GM PACK PO PRN (21:44)
[2020-10-28] MEDS: ACETAMINOPHEN 500 MG TAB PO PRN (04:25)
[2020-10-28 06:00] LABS: Hematocrit (blood only) 28.5 % (37-47); Hemoglobin 10.1 g/dL (12.0-16.0); Mean Corpuscular Hemoglobin 33.2 pg (25-34); Mean Corpuscular Hgb Conc 35.4 g/dL (32-36); Mean Corpuscular Volume 93.8 fL (80-100); Mean Platelet Volume 10.4 fL (7.4-10.4); Platelet Count 158 K/uL (130-400); RDW Coefficient of Variation 12.8 % (11.5-14.5); RDW Standard Deviation 44.3 fL (36.4-46.3); Red Blood Count 3.04 M/uL (4.2-5.4)
[2020-10-28 06:32] LABS: BUN Creatinine Ratio 15.9 (10-20); Calcium 8.2 mg/dl (8.5-10.1); Creatinine Clr Calc Pharmacy 73.8 ml/min; Est GFR (African American) 106.2; Est GFR (Non-African American) 91.6; Magnesium 2.3 mg/dl (1.8-2.4); Phosphorus 3.7 mg/dl (2.5-4.9)
--- NOTE | 2020-10-28 07:28 | Hospitalist Progress Note ---
Date of Service October 28, 2020 Assessment & Plan (1) S/P spinal surgery: This is a 65yo F with a PMH of generalized anxiety disorder, HTN, hyperlipidemia and other medical problems listed below who is POD#0 s/p lumbar decompression and fusion L3-S1 by Dr. Carrillo. POD#3 s/p lumbar decompression and fusion L3-S1 by Dr. Carrillo Patient is doing well post-operatively Per ortho for pain control, wound care, anticoagulation, bowel regimen and activities Monitor H&H (pre-op hgb 13.4), continue incentive spirometry, PT/OT when appropriate Current Hgb 10.1 Acute blood loss and dilutional anemia Expected, post-op anemia Current hemoglobin 10.1, stable from yesterday at (10.8), but down from 13.4 preop No need for blood transfusion at this time monitor H&H while inpt Episode of lightheadedness, presyncope/syncope -Per nursing staff, happened in the bathroom, and was thought to be a vasovagal episode -Pressures also on the lower side however, therefore check orthostatics -Received 500 cc of normal saline, encouraged salty crackers intake, orthostatics normal -Patient also reported taking pain medication and Ativan, which could make her also more lightheaded -Continue to closely monitor -Resolved, patient feels well now, no more episodes of feeling lightheaded or dizzy, blood pressure normal (2) 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 No longer on fluid restriction or lasix Pre-op Na 135. Post-op 138 Current 136 (yesterday 131) Cont. to monitor while inpatient (3) History of seizure: History of provoked seizure requiring admission to [facility] August 2020 attributed to Wellbutrin medication as well as hyponatremia 2/2 SIADH Wellbutrin has been discontinued and sodium has returned to normal range Received neuro clearance in [place]. No recurrent seizures and not on any AED medications (4) Anxiety: Continue Ativan 0.5mg HS PRN (5) HTN (hypertension): Not on any home medications currently. Normotensive. Continue to monitor (6) HLD (hyperlipidemia): Diet controlled PCP: Germán Felton ([facility]) Dispo: Per primary service Admission and Anticipated Discharge Date Admission Date: October 25, 2020 Subjective Patient seen in follow-up for medical management, patient after back surgery Currently patient is walking in hallway, in no acute distress Reports she is feeling much better, did not have any more episodes of feeling lightheaded or dizzy She did have a bowel movement Denies any fevers, chills, chest pain, shortness of breath, abdomen pain, nausea or vomiting She is excited to go home Review of Systems Review of Systems: All systems reviewed & are unremarkable except as noted in HPI & below Constitutional: no fever and no chills Respiratory: no cough and no dyspnea Cardiovascular: no chest pain and no palpitations Gastrointestinal: no abdominal pain, no nausea and no vomiting Physical Exam Physical Exam: General Appearance: WD/WN, vitals as above, NAD, sitting up in bed, pleasant, conversing easily Head: normocephalic, atraumatic Eyes: normal inspection, PERRL, conjunctivae normal, anicteric sclerae ENT: external ear and nose normal, oropharynx normal Neck: normal visual inspection, trachea midline, no thyromegaly Respiratory: normal respiratory effort, lungs clear to auscultation, no wheeze, rales, rhonchi. No accessory muscle use Cardiovascular: regular rate, rhythm, no murmur, normal peripheral pulses, no BLE edema. Vessels: no JVD Chest: normal inspection of chest Abdomen/GI: normal bowel sounds, soft, nontender Extremities/Musculoskeletal: Lumbar dressing c/d/i. GERALDINE drain visualized with serosanguineous output. No cyanosis or clubbing, extremities motor strength 5/5 Neurologic: PERRL, EOMI, no face palsy, no dysarthria, CN's II-XI intact b ilaterally and moves all extremities Psychiatric: A+Ox3, euthymic affect Skin: no rashes, normal color, warm/dry Results & Data Results & Data ([facility]) Vital Signs (Past 12 Hours) Vital Signs Temp Pulse Resp BP Pulse Ox 10/28/20 06:14 36.9 C 78 16 113/66 98 10/27/20 22:29 36.9 C 78 16 100/58 L 99 Laboratory Results 10/28/20 10/28/20 Range/Units 05:21 05:21 WBC 3.60 L (4.8-10.8) K/uL RBC 3.04 L (4.2-5.4) M/uL Hgb 10.1 L (12.0-16.0) g/dL Hct 28.5 L (37-47) % MCV 93.8 (80-100) fL MCH 33.2 (25-34) pg MCHC 35.4 (32-36) g/dL RDW Std Deviation 44.3 (36.4-46.3) fL RDW Coeff of Bj 12.8 (11.5-14.5) % Plt Count 158 (130-400) K/uL MPV 10.4 (7.4-10.4) fL Sodium 136 (136-145) mmol/L Potassium 4.0 (3.5-5.1) mmol/L Chloride 104 (98-107) mmol/L Carbon Dioxide 29 (21-32) mmol/L Anion Gap 3.0 (3-11) BUN 11 (7-18) mg/dl Creatinine 0.67 (0.6-1.2) mg/dl Est Cr Clr Drug Dosing 73.8 ml/min Est GFR ( Amer) 106.2 Est GFR (Non-Af Amer) 91.6 BUN/Creatinine Ratio 15.9 (10-20) Glucose 100 H (70-99) mg/dl Calcium 8.2 L (8.5-10.1) mg/dl Phosphorus 3.7 (2.5-4.9) mg/dl Magnesium 2.3 (1.8-2.4) mg/dl Medications Administered Current Inpatient Medications Acetaminophen (Acetaminophen 500 Mg Tab) 1,000 mg PO Q8H PRN PRN Reason: MILD Pain Scale 1,2,3 & Pre PT Stop: 11/24/20 16:29 Last Admin: 10/28/20 04:25 Dose: 1,000 mg Documented by: Al Hydrox/Mg Hydrox/Simethicone (Aluminum/Magnesium Susp 30 Ml Udc) 30 ml PO Q6H PRN PRN Reason: Dyspepsia Stop: 11/24/20 16:29 Ascorbic Acid (Ascorbic Acid 500 Mg Tab) 500 mg PO DAILY ANNEL Stop: 11/25/20 08:59 Last Admin: 10/27/20 10:11 Dose: Not Given Documented by: Bisacodyl (Bisacodyl 10 Mg Supp) 10 mg KY DAILY PRN PRN Reason: Constipation Stop: 11/24/20 16:29 Buspirone HCl (Buspirone 5 Mg Tab) 5 mg PO BID [facility] Stop: 11/24/20 20:59 Last Admin: 10/27/20 19:31 Dose: 5 mg Documented by: Diphenhydramine HCl (Diphenhydramine Capsule 25 Mg Cap) 25 mg PO Q6H PRN PRN Reason: Allergic Rhinitis/Insomnia Stop: 11/24/20 16:29 Famotidine (Famotidine 20 Mg Tab) 20 mg PO Q12H PRN PRN Reason: Dyspepsia Stop: 11/24/20 16:29 Fexofenadine HCl (Fexofenadine 60 Mg Tab) 60 mg PO BID [facility] Stop: 11/24/20 20:59 Last Admin: 10/27/20 20:54 Dose: 60 mg Documented by: Fluticasone Propionate (Fluticasone Propionate Na Spr 16 Gm Btl) 2 sprays NA QAM [facility] Stop: 11/25/20 08:59 Last Admin: 10/27/20 10:10 Dose: Not Given Documented by: Hydromorphone HCl (Hydromorphone Inj 0.5 Mg/0.5 Ml Syr) 0.5 mg IV Q3H PRN PRN Reason: MOD pain (scale 4-6) & Pre PT Stop: 11/08/20 16:29 Hydromorphone HCl (Hydromorphone Inj 1 Mg/Ml Syringe) 1 mg IV Q3H PRN PRN Reason: severe pain (scale 7-10) Stop: 11/08/20 16:29 Hydroxyzine HCl (Hydroxyzine Hcl 25 Mg Tab) 25 mg PO Q8H PRN PRN Reason: Anxiety Stop: 11/24/20 16:29 Promethazine HCl 12.5 mg/ (Sodium Chloride) 50.5 mls @ 204 mls/hr IV Q6H PRN PRN Reason: Nausea &/or Vomiting Stop: 11/24/20 16:29 Lorazepam (Ativan) 0.5 mg in 1 mls @ 0.5 mls/min IV Q8H PRN PRN Reason: Sedation/Anxiety Stop: 11/24/20 16:29 Influenza Virus Vaccine Quadrival (Do Not Administer Flu Vaccine) 1 ea N/A PRN PRN PRN Reason: Notification Stop: 11/24/20 16:29 Lorazepam (Lorazepam 0.5 Mg Tab) 0.5 mg PO Q8H PRN PRN Reason: Sedation/Anxiety Stop: 11/24/20 16:29 Lorazepam (Lorazepam 0.5 Mg Tab) 0.5 mg PO HS PRN PRN Reason: Anxiety Stop: 11/24/20 20:59 Last Admin: 10/26/20 22:05 Dose: 0.5 mg Documented by: Magnesium Hydroxide (Magnesium Hydroxide Susp 30 Ml Udc) 30 ml PO DAILY PRN PRN Reason: Constipation Stop: 11/24/20 16:29 Last Admin: 10/26/20 17:11 Dose: 30 ml Documented by: Magnesium Oxide (Magnesium Oxide 400 Mg Tab) 400 mg PO QAM ANNEL Stop: 11/25/20 08:59 Last Admin: 10/27/20 10:11 Dose: Not Given Documented by: Menthol (Cough Drop (Sugar Free) Mason 24 Mason/1 Box) 1 mason BUCCAL PRN PRN PRN Reason: Sore Throat Stop: 11/25/20 08:39 Last Admin: 10/26/20 09:05 Dose: 1 mason Documented by: Metoclopramide HCl (Metoclopramide Hcl Inj 5 Mg/Ml 2 Ml Vial) 10 mg IV Q6H PRN PRN Reason: Nausea &/or Vomiting Stop: 11/24/20 16:29 Mometasone Furoate (Mometasone Furoate 0.1% Oint 15 Gm Tube) 1 appln EXT BID PRN PRN Reason: Dry Eyelids Stop: 11/24/20 16:29 Naloxone HCl (Naloxone Hcl 0.4 Mg/1 Ml Vial/Carp) 0.1 mg IV Q5M PRN; Protocol PRN Reason: Oversedation/Resp Depression Stop: 11/24/20 16:29 Ondansetron HCl (Ondansetron Inj 2 Mg/Ml 2 Ml Vial) 4 mg IV Q6H PRN PRN Reason: Nausea &/or Vomiting Stop: 11/24/20 16:29 Ondansetron HCl (Ondansetron 4 Mg Od Tab) 4 mg PO Q6H PRN PRN Reason: Nausea Stop: 11/24/20 16:29 Oxycodone HCl (Oxycodone Hcl Ir 5 Mg Tab (Immediate Release)) 5 - 10 mg PO Q4H PRN PRN Reason: Moderate-Severe Pain & Pre PT Stop: 11/08/20 16:29 Last Admin: 10/27/20 21:32 Dose: 5 mg Documented by: Pneumococcal Polyvalent Vaccine (Do Not Administer Pneumococcal Vaccine) 1 ea N/A PRN PRN PRN Reason: Notification Stop: 11/24/20 16:29 Polyethylene Glycol (Polyethylene (Miralax) 17 Gm Pack) 17 gm PO DAILY PRN PRN Reason: Constipation Stop: 11/26/20 21:43 Senna/Docusate Sodium (Docusate Sodium/Senna 50/8.6mg Tab) 2 tab PO HS ANNEL Stop: 11/24/20 20:59 Last Admin: 10/27/20 20:53 Dose: Not Given Documented by: Sodium Biphosphate/Sodium Phosphate (Sod Phosphate/Sod Biphosphate Enema 132 Ml Btl) 132 ml KY ONE PRN PRN Reason: Constipation Stop: 11/24/20 16:29 Vitamin D (Cholecalciferol 1,000 Units 25 Mcg Tab) 2,[facility] [facility] [place] Stop: 11/25/20 08:59 Last Admin: 10/27/20 10:11 Dose: Not Given Documented by: Zinc Sulfate (Zinc Sulfate 220 Mg Capsule) 220 mg PO QAM [facility] Stop: 11/25/20 08:59 Last Admin: 10/27/20 10:11 Dose: Not Given Documented by:
--- NOTE | 2020-10-28 08:03 | Discharge Summary ---
Date of Service October 28, 2020 Admission HPI Per Admitting Provider This is a 65-year-old female who presents with chronic persistent back and leg pain. After failing course of nonoperative care she is here for surgical invention. Admission Exam (Per Admitting) Constitutional WD/WN, vitals as above Eyes normal visual reynolds by confrontation ENMT external ear and nose normal, oropharynx normal Neck normal visual inspection Respiratory normal respiratory effort Cardiovascular Extremities: normal capillary refill Chest (Breasts) Chest: normal inspection of chest Gastrointestinal (Abdomen) Inspection/Auscultation: abdomen normal to inspection Musculoskeletal no cyanosis or clubbing, extremities motor strength 5/5 Extremities: extremities normal to inspection Skin no rashes, warm and dry Neurologic normal touch/pain/proprioception and moves all extremities Psychiatric A+Ox3, euthymic affect Discharge Data Consultations 10/25/20 16:30 Consult Hospitalist Routine Procedures Performed Operation Date: 10/25/20 12:25 Actual Procedures p L4-S1 Decompression and Fusion with Insertion of Interbody, Application of Bone Morphogenetic Protein, Spinal Cord Monitoring(Not Applicable) - Bayron Carrillo, Hospital Course (1) S/P spinal surgery: Pt is being discharged home on POD #3 s/p lumbar decompession and fusion L4-S1. She's had an uncomplicated hospital course. Pain is well controlled. She has had a bowel movement. She's made great progress in physical therapy. Lab values have been stable. Discharge Instructions ACTIVITY RECOMMENDATIONS: SELF CARE INSTRUCTIONS AFTER THORACIC/LUMBAR FUSIONS 1. You may walk to your tolerance. It is good exercise for your legs and back. Expect some back and intermittent leg aches and pains. 2. You may perform "counter-top" level activities (make a sandwich, tiffanie with a project, etc.). 3. No bending or lifting of more than 10 pounds or back twisting of any nature (roll like a log when turning in bed). 4. You may ride in a car for 20-30 minutes at a time. No driving until after your first visit with your doctor. 5. Frequent changes of position and restricting sitting to 30 minutes at a time will help limit the amount of back spasms and stiffness you may experience. 6. You may discontinue the use of ambulatory aids (cane, crutches, etc.) once your strength and confidence allow. 7. You may painting instructor the shower and let water strike your incision when you arrive home at least once daily. Do not take a tub bath, sit in a hot tub or go into a swimming pool until after your first recheck in the office. SPECIAL CARE INSTRUCTIONS: VERY IMPORTANT TO READ AND REVIEW A. Your surgical incision has been closed with a cosmetic suture under the skin that will dissolve in about 6 weeks. In 14 days, you can use a pair of clean scissors and cut the suture that is left outside of the skin at the ends of your incision. 1. The small skin tapes can be removed 7 days after surgery if they have not fallen off by that point. 2. You may keep the wound open to air as much as possible to promote healing after post-op day number 5 unless told otherwise by your doctor. 3. If you think the wound looks like it is becoming infected (redness or worsening drainage) and/or you are experiencing fever, chill or worsening back pain and muscle spasms, contact the office so that we may evaluate you as soon as possible. B. Complications are uncommon, but please contact us if you have any signs or symptoms of: 1. wound infection (fever higher than 102.5 degrees F, redness, separation of wound, drainage, or increasing pain from the incision) 2. blood clots in legs (pain, swelling, redness and warmth in legs) 3. urinary tract infection (fever higher than 102.5 degrees F, burning upon urination or increased frequency of urination) 4. nerve problems (inability to walk on your toes or heels, numbness, loss of bowel or bladder control) 5. any other symptoms that concern you C. Please call the office at if you have any concerns or questions about your operation or recovery. D. No smoking! Smoking drastically decreases the chance of a solid fusion. E. Do not take any anti-inflammatory medications (Indocin, Advil, Motrin, Aspirin, Naprosyn, etc.) as these may inhibit the chance of a solid fusion. Tylenol is okay to take for pain. MANAGING PAIN AFTER SPINAL SURGERY 1. Narcotic medication is intended for short-term use and will be provided for surgical pain. Surgical pain usually lasts for a period of 4-6 weeks. Narcotic medication includes Percocet, Vicodin, Darvocet, Tylenol #3 or Lortab. 2. Longer-term pain is more appropriately treated with non-narcotic medication such as Tylenol ES. 3. Muscle spasm is not appropriately treated with narcotics. Muscle relaxers such as Soma, Flexeril or Skelaxin can be used along with Tylenol ES. 4. Remember that we all live with some "aches and pains". This is not unusual or uncommon after an injury or as we get older. a. Back pain is expected and may include muscle spasms for 4 to 6 weeks after surgery. The pain should gradually improve. If the pain worsens for no apparent reason, please contact the office. b. Intermittent leg pain may also be experienced and should not be concerned about unless it worsens for no apparent reason. If so, please contact the office. 5. We will provide appropriate medication within the normal guidelines of their prescribed use. We will also be very cautious and aware of potential abuse and extended duration of patients' medication needs. a. Pain medications are for your comfort and to assist with sleep and rest so that the tissue can heal. They are not provided in order to return to normal activity and should not be used through the day. To do so or worsening pain at night can result from ongoing tissue damage and development of tolerance to the prescribed medicine. 6. Please allow 2-3 days to process refills. Prescriptions will not be mailed but must be picked up at the office. FOLLOW UP VISIT: Keep your scheduled follow-up appointment. Any questions, please call the office at . Supervising Physician Co-Signing Physician Notes Dr. Bayron Carrillo
[2020-10-28] MEDS: oxyCODONE HCL IR 5 MG TAB (IMMEDIATE RELEASE) PO PRN (08:10)
[2020-10-28] MEDS: busPIRone 5 MG TAB PO SCH (08:11)
[2020-10-28] MEDS: FEXOFENADINE 60 MG TAB PO SCH (08:11)
[2020-10-28] MEDS: CHOLECALCIFEROL 1,000 UNITS 25 MCG TAB PO SCH (08:12)
[2020-10-28] MEDS: MAGNESIUM OXIDE 400 MG TAB PO SCH (08:12)
[2020-10-28] MEDS: ASCORBIC ACID 500 MG TAB PO SCH (08:12)
[2020-10-28] MEDS: FLUTICASONE PROPIONATE NA SPR 16 GM BTL SCH (08:12)
[2020-10-28] MEDS: ZINC SULFATE 220 MG CAPSULE PO SCH (08:12)
== END 2020-10-28 11:13 | disposition home or self-care (01) | DRG 454 ==
LOC: ASU 10:53 → 3E 14:54

== ENCOUNTER 2024-06-21 17:22 | Inpatient (IN) ==
--- NOTE | 2024-06-21 17:58 | Emergency Department Note ---
Impression & Plan SBO (small bowel obstruction), Abdominal pain, Nausea & vomiting, Acute hyponatremia ED Provider Note NAME: ALEJANDRO OLMSTEAD AGE: 69 SEX: F : 1955 ARRIVES VIA: Walk-In INFORMANT: Patient, family at bedside ED PROVIDER(S): Alejandro Summers MD CHIEF COMPLAINT: Abdominal pain, nausea vomiting MEDICAL DECISION MAKING: Patient presents due to concern for abdominal pain nausea vomiting. IV was established and blood work was obtained. Patient ordered IV Zofran and IV fluids. The patient's blood work shows a normal white count H&H and platelet count. The patient's kidney function is unremarkable. Hyponatremia at 128 the patient has had prior bouts of hyponatremia in the past. Likely exacerbated secondary to her nausea vomiting. LFTs unremarkable. BioFire negative. The patient did have a CT of the abdomen pelvis performed which does show small bowel obstruction. Patient did have an NG placed. I did speak with the on-call general surgery service Luann Stock PA-C with Dr. Reyes. They are in agreement with the plan of care. I did speak to the on-call hospital service Dr. Ellis and the patient was admitted to the medicine service. Discussion w/ other healthcare providers: Tejal Stock PA-C with Dr. Eric Ellis inpatient medicine service Prior /Outside records reviewed: None Differential diagnosis: Gastroenteritis, food borne illness, infection, appendicitis, diverticulitis, inflammatory bowel disease, obstruction among others were considered. Diagnostics, as interpreted by me: ECG: None Cardiac monitoring: An order was placed for continuous cardiac monitoring. The monitor shows a rate of 72 with sinus rhythm. Patient was placed on pulse oximetry Medical decision rules: None Imaging studies: I informally interpreted the patient's CT abdomen pelvis does show concern for bowel obstruction with formal report to follow. HPI: Patient presents due to concern for abdominal pain. The patient states that she has had abdominal cramping with nausea and vomiting and does not believe that she is passing any stool or gas. Symptoms began on Wednesday and have been persistent. Right history of small bowel obstruction several years ago. The patient did have a prior hernia repair prior to that in [place]. Patient denies any chest pains or shortness of breath. Patient is accompanied by her at bedside. She denies any blood in the vomit. No known sick contacts or recent travel. The patient has been at [employer] and around other people but no specific sick contacts. PAST MEDICAL HISTORY: See Below PAST SURGICAL HISTORY: See Below SOCIAL HISTORY: See Below HOME MEDICATIONS: See Below ALLERGIES: See Below VITALS: See Below PHYSICAL EXAMINATION: GENERAL: NAD, non-toxic. EYE EXAM: Normal conjunctiva. PERRL, no anisocoria and EOM's grossly intact w/o pain. OROPHARYNX: Moist mucus membranes, grossly normal dentition. NECK: Trachea midline, no stridor. LUNGS: Clear to auscultation. Normal chest wall mechanics. HEART: NSR, no MRG. ABDOMEN: Abdomen soft, diffuse abdominal pain sparing the right lower quadrant, no masses, no rebound or guarding. BACK: No CVA TTP. SKIN: No rashes and no bruising. UPPER EXTREMITIES: Upper extremities are grossly normal. LOWER EXTREMITIES: Grossly normal, no edema. NEURO EXAM: A&O x3, cranial nerves II-XII grossly intact, normal speech, moves all 4 extremities. Past Med/Surg History Problem List (Updated 06/21/24 @ 22:03 by Alejandro Summers MD) Acute hyponatremia (Acute) Nausea & vomiting (Acute) Abdominal pain (Acute) SBO (small bowel obstruction) (Acute) Small bowel obstruction Encounter for pre-operative examination HTN (hypertension) Postoperative ileus Neurogenic claudication due to lumbar spinal stenosis Anxiety Hyponatremia History of seizure S/P spinal surgery HLD (hyperlipidemia) Medical History Arthritis Macular degeneration Hyperlipidemia Anxiety and depression Seizure Aug 30, 2020 > [facility] > felt caused by low sodium and taking Wellbutrin > saw neurology from [place] and was cleared per pt History of intestinal obstruction 2/2 tethered suture from umbilical hernia repair. Spondylisthesis Seasonal allergies HTN (hypertension) Spinal stenosis Surgical History Fusion of spine lumbar History of cataract surgery rt/left Griffith teeth extracted History of colonoscopy S/P exploratory laparotomy (02/25/19) Exploratory laparotomy, lysis of adhesions, excision of suture, closure of enterotomy - Ke Phan MD 02/25/19 History of shoulder surgery LEFT ROTATOR CUFF History of hand surgery right/left History of lumpectomy breast lumpectomy x 3 (benign) Status post inguinal hernia repair H/O hernia repair Complicated by tethered suture causing bowel obstruction-OK NOW Family History Other No family history of adverse response to anesthesia Social History Smoking Status: Never smoker Second Hand Exposure: Yes (as a child); Do You Dip or Chew Tobacco: No; Hx Alcohol Use: Yes Alcohol type: wine Alcohol type Comment: socially Alcohol Intake Frequency: 2-4 x/Month Hx Substance Use: No Preferred Language: Khmer Communication Ability: Effective 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5 mg tablet (Ativan) 0.5 mg PO HS 02/28/19 06/21/24 acetaminophen 500 mg tablet 1,000 mg PO Q4H PRN Pain 09/08/19 06/21/24 (Tylenol Extra Strength) polyethylene glycol 3350 17 gram 17 g PO QAM PRN Constipation 06/04/20 06/21/24 oral powder packet (Miralax) glucosamine sulf dipot 1 cap PO QAM 07/09/20 06/21/24 chlr,msm,chond 550 mg-C 30 mg-sandra 1 mg capsule (Glucosamine Chondroitin) Bifidobacterium infantis 10.5 mg 10 mg PO QAM 08/26/20 06/21/24 (10 million cell) chewable tablet (Align) biotin 5,000 mcg disintegrating 10,000 mcg PO QAM 08/26/20 06/21/24 tablet atorvastatin 20 mg tablet 20 mg PO HS 01/26/23 06/21/24 azelastine 137 mcg (0.1 %) nasal 1 spray intranasal BID PRN allergy 01/26/23 01/27/23 spray relief bupropion HCl 150 mg tablet,12 hr 150 mg PO QAM 01/26/23 06/21/24 sustained-release (Wellbutrin SR) buspirone 10 mg tablet 15 mg PO TID 01/26/23 06/21/24 coQ10 (ubiquinol) 200 mg capsule 200 mg PO HS 01/26/23 06/21/24 cyanocobalamin (vitamin B-12) 1,000 mcg PO QAM 01/26/23 06/21/24 1,000 mcg tablet lifitegrast 5 % eye drops in a 1 drp ophthalmic (eye) AMPM PRN 01/26/23 06/21/24 dropperette (Xiidra) allergy relief loratadine 10 mg tablet (Claritin) 10 mg PO QAM PRN Allergic Symptoms 01/26/23 06/21/24 losartan 50 mg tablet 50 mg PO BID 01/26/23 01/27/23 magnesium glycinate 100 mg (as 100 mg PO QAM PRN Unknown 01/26/23 06/21/24 glycinate) tablet vitamins A,C,U-dkoy-ilqans 2,148 2 tab PO QAM 01/26/23 06/21/24 mcg-113 mg-45 mg-17.4 mg tablet (PreserVision AREDS) Results & Data (ED) Vital Signs Vital Signs - 24 hr 06/21/24 17:29 06/21/24 17:45 06/21/24 18:00 Temperature 36.5 C Temperature Source Temporal Artery Scan Pulse Rate 84 73 Pulse Rate [Apical] 72 Pulse Rate from SpO2 Sensor Respiratory Rate 19 20 Respiratory Effort / Characteristics Non-Labored Spontaneous Respiratory Depth Normal Blood Pressure 121/79 Blood Pressure [Right Arm] 138/77 Blood Pressure Mean 93 Blood Pressure Mean [Right Arm] 97 Pulse Oximetry 98 99 Oxygen Delivery Method Room Air Room Air Sepsis Recent Fever Within 48 Hours No Sepsis New/Unexplained Change in Mental Status N/A Sepsis Action Taken by Nursing No Action Required 06/21/24 18:10 06/21/24 18:30 06/21/24 19:00 Temperature Temperature Source Pulse Rate 76 84 Pulse Rate [Apical] Pulse Rate from SpO2 Sensor 75 83 Respiratory Rate 17 15 Respiratory Effort / Characteristics Respiratory Depth Blood Pressure Blood Pressure [Right Arm] Blood Pressure Mean Blood Pressure Mean [Right Arm] Pulse Oximetry 97 99 100 Oxygen Delivery Method Room Air Sepsis Recent Fever Within 48 Hours Sepsis New/Unexplained Change in Mental Status Sepsis Action Taken by Nursing 06/21/24 20:33 06/21/24 21:00 06/21/24 21:46 Temperature Temperature Source Pulse Rate 88 78 Pulse Rate [Apical] 79 Pulse Rate from SpO2 Sensor 88 Respiratory Rate 22 18 18 Respiratory Effort / Characteristics Respiratory Depth Blood Pressure Blood Pressure [Right Arm] 156/79 H Blood Pressure Mean Blood Pressure Mean [Right Arm] 104 Pulse Oximetry 100 99 98 Oxygen Delivery Method Room Air Room Air Sepsis Recent Fever Within 48 Hours Sepsis New/Unexplained Change in Mental Status Sepsis Action Taken by [facility] Medications Current Medication List: was personally reviewed by me Laboratory Data Attestation: I reviewed the patient's lab results. 06/21/24 17:55 06/21/24 17:55 Lab Results 06/21/24 06/21/24 06/21/24 Range/Units 17:55 18:00 19:23 WBC 5.29 (4.8-10.8) K/ul RBC 3.99 L (4.20-5.40) M/uL Hgb 13.4 (12.0-16.0) g/dl POC Hgb 13.9 (12.0-16.0) g/dl Hct 37.4 (37.0-47.0) % POC Hct 41 (37-47) % MCV 93.7 (80.0-100.0) fL MCH 33.6 (25.0-34.0) pg MCHC 35.8 (32.0-36.0) g/dL RDW Std Deviation 45.7 (36.4-46.3) fL RDW Coeff of Bj 13.2 (11.5-14.5) % Plt Count 217 (130-400) K/uL MPV 9.7 (9.4-12.4) fL Immature Gran % (Auto) 0.2 % Neut % (Auto) 67.1 % Lymph % (Auto) 13.4 % Trigg % (Auto) 18.5 % Eos % (Auto) 0.4 % Baso % (Auto) 0.4 % Neut # (Auto) 3.55 (1.40-6.50) K/uL Lymph # (Auto) 0.71 L (1.20-3.40) K/uL Trigg # (Auto) 0.98 H (0.11-0.59) K/uL Eos # (Auto) 0.02 (0.00-0.50) K/uL Baso # (Auto) 0.02 (0.00-0.20) K/uL Immature Gran # (Auto) 0.01 (0.01-0.20) K/uL POC Sodium 127 L (135-144) mmol/L Sodium 128 L (136-145) mmol/L POC Potassium 3.9 (3.3-5.0) mmol/L Potassium 3.8 (3.5-5.1) mmol/L POC Chloride 93 L (101-112) mmol/L Chloride 94 L (98-107) mmol/L Carbon Dioxide 25 (21-32) mmol/L POC Total CO2 22 L (24-31) mmol/L Anion Gap 9 (3-11) POC Anion Gap 17.0 (16-25) mmol/L POC BUN 17 (7-18) mg/dl BUN 15 (6-23) mg/dl Creatinine 0.81 (0.6-1.2) mg/dl POC Creatinine 0.7 (0.6-1.3) mg/dl Est Cr Clr Drug Dosing 55.2 ml/min eGFR 78.04 BUN/Creatinine Ratio 18.5 (10-20) Glucose 123 H (70-99(Fasting)) mg/dl POC Glucose (other) 126 H (70-99) mg/dl Estimat Average Glucose 108 mg/dl Hemoglobin A1c 5.4 (4.5-5.6) % Osmolality 267 L (280-300) mOsm/kg Calcium 9.3 (8.6-10.3) mg/dl POC Ioniz Calcium Jeni 1.13 (1.12-1.32) mmol/l Magnesium 1.7 (1.7-2.4) mg/dl Total Bilirubin 1.0 (0.2-1.0) mg/dl AST 23 (13-39) U/L ALT 21 (7-52) U/L Alkaline Phosphatase 54 (34-104) U/L Total Protein 6.3 (6.0-8.3) gm/dl Albumin 4.3 (3.4-5.0) gm/dl Globulin 2.0 L (2.5-4.0) gm/dl Albumin/Globulin Ratio 2.2 H (0.9-2) Lipase 39 (11-82) U/L TSH 1.859 (0.300-4.500) uIu/ml Adenovirus (PCR) (NotDetected) B. pertussis DNA (PCR) (NotDetected) B.parapertussis DNA PCR (NotDetected) C. pneumoniae DNA (PCR) (NotDetected) Coronavirus OC43 (PCR) (NotDetected) Coronavirus HKU1 (PCR) (NotDetected) Coronavirus 229E (PCR) (NotDetected) SARS-CoV-2 (PCR) (NotDetected) Coronavirus NL63 (PCR) (NotDetected) Human Metapneumovir PCR (NotDetected) Influenza Type A (PCR) (NotDetected) Influenza Type B (PCR) (NotDetected) M. pneumoniae (PCR) (NotDetected) Parainfluenza 1 (PCR) (NotDetected) Parainfluenza 2 (PCR) (NotDetected) Parainfluenza 3 (PCR) (NotDetected) Parainfluenza 4 (PCR) (NotDetected) RSV (PCR) (NotDetected) Entero/Rhino (PCR) (NotDetected) 06/21/24 Range/Units Unknown WBC (4.8-10.8) K/ul RBC (4.20-5.40) M/uL Hgb (12.0-16.0) g/dl POC Hgb (12.0-16.0) g/dl Hct (37.0-47.0) % POC Hct (37-47) % MCV (80.0-100.0) fL MCH (25.0-34.0) pg MCHC (32.0-36.0) g/dL RDW Std Deviation (36.4-46.3) fL RDW Coeff of Bj (11.5-14.5) % Plt Count (130-400) K/uL MPV (9.4-12.4) fL Immature Gran % (Auto) % Neut % (Auto) % Lymph % (Auto) % Trigg % (Auto) % Eos % (Auto) % Baso % (Auto) % Neut # (Auto) (1.40-6.50) K/uL Lymph # (Auto) (1.20-3.40) K/uL Trigg # (Auto) (0.11-0.59) K/uL Eos # (Auto) (0.00-0.50) K/uL Baso # (Auto) (0.00-0.20) K/uL Immature Gran # (Auto) (0.01-0.20) K/uL POC Sodium (135-144) mmol/L Sodium (136-145) mmol/L POC Potassium (3.3-5.0) mmol/L Potassium (3.5-5.1) mmol/L POC Chloride (101-112) mmol/L Chloride (98-107) mmol/L Carbon Dioxide (21-32) mmol/L POC Total CO2 (24-31) mmol/L Anion Gap (3-11) POC Anion Gap (16-25) mmol/L POC BUN (7-18) mg/dl BUN (6-23) mg/dl Creatinine (0.6-1.2) mg/dl POC Creatinine (0.6-1.3) mg/dl Est Cr Clr Drug Dosing ml/min eGFR BUN/Creatinine Ratio (10-20) Glucose (70-99(Fasting)) mg/dl POC Glucose (other) (70-99) mg/dl Estimat Average Glucose mg/dl Hemoglobin A1c (4.5-5.6) % Osmolality (280-300) mOsm/kg Calcium (8.6-10.3) mg/dl POC Ioniz Calcium Jeni (1.12-1.32) mmol/l Magnesium (1.7-2.4) mg/dl Total Bilirubin (0.2-1.0) mg/dl AST (13-39) U/L ALT (7-52) U/L Alkaline Phosphatase (34-104) U/L Total Protein (6.0-8.3) gm/dl Albumin (3.4-5.0) gm/dl Globulin (2.5-4.0) gm/dl Albumin/Globulin Ratio (0.9-2) Lipase (11-82) U/L TSH (0.300-4.500) uIu/ml Adenovirus (PCR) Not Detected (NotDetected) B. pertussis DNA (PCR) Not Detected (NotDetected) B.parapertussis DNA PCR Not Detected (NotDetected) C. pneumoniae DNA (PCR) Not Detected (NotDetected) Coronavirus OC43 (PCR) Not Detected (NotDetected) Coronavirus HKU1 (PCR) Not Detected (NotDetected) Coronavirus 229E (PCR) Not Detected (NotDetected) SARS-CoV-2 (PCR) Not Detected (NotDetected) Coronavirus NL63 (PCR) Not Detected (NotDetected) Human Metapneumovir PCR Not Detected (NotDetected) Influenza Type A (PCR) Not Detected (NotDetected) Influenza Type B (PCR) Not Detected (NotDetected) M. pneumoniae (PCR) Not Detected (NotDetected) Parainfluenza 1 (PCR) Not Detected (NotDetected) Parainfluenza 2 (PCR) Not Detected (NotDetected) Parainfluenza 3 (PCR) Not Detected (NotDetected) Parainfluenza 4 (PCR) Not Detected (NotDetected) RSV (PCR) Not Detected (NotDetected) Entero/Rhino (PCR) Not Detected (NotDetected) Administered Medications Lorazepam (Lorazepam 2 Mg/1 Ml Vial) 0.25 mg IV Q4H PRN PRN Reason: Anxiety/Agitation Stop: 07/21/24 19:31 Last Admin: 06/21/24 20:06 Dose: 0.25 mg Documented By: SUSAN Discontinued Medications Bisacodyl (Bisacodyl 10 Mg Supp) 10 mg CA NOW STA Stop: 06/21/24 20:34 Last Admin: 06/21/24 21:17 Dose: Not Given Documented By: KACI Sodium Chloride (Nss) 1,000 mls @ 999 mls/hr IV .Q1H1M ONE Stop: 06/21/24 18:53 Last Infusion: 06/21/24 19:40 Dose: Infused Documented By: Admin: 06/21/24 17:59 Dose: 999 mls/hr Documented By: MACIEL Ioversol (Optiray 320 100ml) 90 ml IV ONCE ONE Stop: 06/21/24 18:21 Last Admin: 06/21/24 18:20 Dose: 90 ml Documented By: AXEL Ondansetron HCl (Ondansetron Inj 2 Mg/Ml 2 Ml Vial) 4 mg IV NOW STA Stop: 06/21/24 17:54 Last Admin: 06/21/24 17:59 Dose: 4 mg Documented By: Luke Imaging Data Radiologist's Impression: Abdomen/Pelvis CT 06/21/24 17:53 EXAM: CT Abdomen and Pelvis With Intravenous Contrast INDICATION: Diffuse abdominal pain. TECHNIQUE: Axial computed tomography images of the abdomen and pelvis with intravenous contrast. Sagittal and coronal reformatted images were created and reviewed. This CT exam was performed using one or more of the following dose reduction techniques: automated exposure control, adjustment of the mA and/or kV according to patient size, and/or use of iterative reconstruction technique. CONTRAST: 90 ml of Optiray 320 was administered intravenously. COMPARISON: 09/08/2019 FINDINGS: Limitations: None. Lung bases: No abnormality noted. Pleural space: No visualized pleural effusion or pneumothorax. Heart: No abnormality noted. Mediastinum: No abnormality noted. ABDOMEN: Liver: Low attenuation focus in the liver consistent with a hepatic cyst. No follow-up is necessary. Gallbladder and bile ducts: No calcified stones or surrounding fluid. Pancreas: Homogeneous enhancement. No mass, inflammation or ductal dilation. Spleen: No significant abnormality noted. Adrenals: No significant abnormality noted. Kidneys and ureters: Normal enhancement. No mass, hydronephrosis or visualized stone. Stomach and bowel: Proximal and mid small bowel loops are dilated up to 3.7 cm. Multiple distal small bowel loops are collapsed. There is small amounts of air and stool scattered throughout the colon. Transition point is not distinctly defined but likely in the right pelvis. No pneumatosis. PELVIS: Appendix: No findings to suggest acute appendicitis. Bladder: No filling defects to suggest mass or large stone. No inflammation. Reproductive: No abnormalities noted. ABDOMEN and PELVIS: Intraperitoneal space: There is small amounts of free fluid in the abdomen and pelvis with some interloop scattered fluid. No organized collection. No free air. Generalized mesenteric edema with small amounts of interloop and free fluid noted. There is no organized or drainable collection. Bones/joints: Degenerative changes present throughout the spine. Intact posterior L4-S1 fusion hardware present. No acute osseous abnormality noted. Soft tissues: No significant abnormality noted. Vasculature: No abdominal aortic aneurysm. Lymph nodes: No pathologically enlarged lymph nodes. IMPRESSION: 1. Mid to distal small bowel obstruction. Transition point is likely in the right lower quadrant. Consider adhesions. 2. Mild ascites. ACT 112: Negative or not required by law. Electronically signed by Erica Jenkins 06-21-2024 6:42 PM Chest X-Ray 06/21/24 19:23 Exam(s): XR CXR 1 VIEW EXAM: XR Chest, 1 View CLINICAL HISTORY: Reason for exam: hyponatremia. TECHNIQUE: Frontal view of the chest. COMPARISON: Chest x-ray: 06/13/2020 FINDINGS: An endotracheal tube terminates about 3.5 cm proximal to the ezequiel. There is likely mal-placement of a NG tube with its distal tip return back into the esophagus. Lungs: Hyperinflated lungs. Bilateral bronchial wall and perihilar interstitial mild thickening.. No consolidation. Pleural space: No pleural effusion. No pneumothorax. Heart: No cardiomegaly. Mediastinum: Unremarkable. Normal mediastinal contour. Bones/joints: Osteopenia. Degenerative changes of the spine and left shoulder. Increased left AC distance.. No acute fracture. IMPRESSION: An appropriately placed endotracheal tube. Likely misplacement of a NG tube. Recommend follow-up. No acute cardiopulmonary abnormality noted. . Electronically signed by: Jenn Dawn MD, DABR 06/21/24 20:53 PM KUB X-Ray 06/21/24 19:44 Exam(s): XR KUB, XR KUB EXAM: XR Abdomen, 1 View CLINICAL HISTORY: Reason for exam: post NG. TECHNIQUE: Frontal supine view of the abdomen/pelvis. COMPARISON: 03/04/2019 FINDINGS: A NG tube is seen terminating in the topography of the stomach. Gastrointestinal tract: Gas filled mildly dilated bowel loops are visualized. Bones/joints: Unremarkable. No acute fracture. Other findings: . Visualized lungs: No consolidation or pleural effusion IMPRESSION: NG tube appears appropriately placed. . Electronically signed by: Jenn Dawn MD, DABR 06/21/24 21:00 PM Discharge Plan Visit Data Chief Complaint: Abdominal Pain Stated Complaint: ABD PAIN, VOMITING, NAUSEA, CONSTIPATION ED Provider: Alejandro Summers Discharge Problem: SBO (small bowel obstruction), Abdominal pain, Nausea & vomiting, Acute hyponatremia Patient Disposition: Admitted As Inpatient Discharge Instructions Interventions: ED Discharge Assessment Last Done: 06/21/24 21:46 Prescriptions Prescriptions: No Action cholecalciferol (vitamin D3) [Vitamin D3] 2,000 unit Tablet 2,000 unit PO QAM acetaminophen [Tylenol Extra Strength] 500 mg Tablet 1,000 mg PO Q4H PRN (Reason: Pain) polyethylene glycol 3350 [Miralax] 17 gram Powder In Packet 17 g PO QAM PRN (Reason: Constipation) biotin 5,000 mcg Tablet,Disintegrating 10,000 mcg PO QAM Align 10.5 mg (10 million cell) Tablet,Chewable 10 mg PO QAM lorazepam [Ativan] 0.5 mg Tablet 0.5 mg PO HS Glucosamine Chondroitin 550-30-1 mg Capsule 1 cap PO QAM losartan 50 mg Tablet 50 mg PO BID bupropion HCl [Wellbutrin SR] 150 mg Tablet Sustained-Release 12 Hr 150 mg PO QAM atorvastatin 20 mg Tablet 20 mg PO HS cyanocobalamin (vitamin B-12) 1,000 mcg Tablet 1,000 mcg PO QAM buspirone 10 mg Tablet 15 mg PO TID magnesium glycinate 100 mg Tablet 100 mg PO QAM PRN (Reason: Unknown) coQ10 (ubiquinol) 200 mg Capsule 200 mg PO HS PreserVision AREDS 2,148 mcg-113 mg-45 mg-17.4mg Tablet 2 tab PO QAM Rx Instructions: administer with AM and PM meals azelastine 137 mcg (0.1 %) Aerosol,[place] 1 spray INTRANASAL BID PRN (Reason: allergy relief) Rx Instructions: administer into each nostril loratadine [Claritin] 10 mg Tablet 10 mg PO QAM PRN (Reason: Allergic Symptoms) Xiidra 5 % Dropperette 1 drp OPHTHALMIC (EYE) AMPM PRN (Reason: allergy relief) Rx Instructions: administer approximately 12 hours apart Discharge Problem: Abdominal pain Qualifiers: Abdominal location: generalized Qualified Code(s): R10.84 - Generalized abdominal pain Nausea & vomiting Qualifiers: Vomiting type: unspecified Qualified Code(s): R11.2 - Nausea with vomiting, unspecified
[2024-06-21] MEDS: ONDANSETRON INJ 2 MG/ML 2 ML VIAL IV STA (17:59)
[2024-06-21] MEDS: SODIUM CHLORIDE 0.9% 1,000 ML IV ONE (17:59)
[2024-06-21 18:13] LABS: iSTAT Creatinine 0.7 mg/dl (0.6-1.3); iSTAT Hemoglobin 13.9 g/dl (12.0-16.0); iSTAT Ionized Calcium 1.13 mmol/l (1.12-1.32); iSTAT Potassium 3.9 mmol/L (3.3-5.0)
[2024-06-21] MEDS: OPTIRAY 320 100ml IV ONE (18:20)
[2024-06-21 18:33] LABS: Basophils # (auto) 0.02 K/uL (0.00-0.20); Basophils % (auto) 0.4 %; Eosinophils # (auto) 0.02 K/uL (0.00-0.50); Eosinophils % (auto) 0.4 %; Hematocrit (blood only) 37.4 % (37.0-47.0); Hemoglobin 13.4 g/dl (12.0-16.0); Immature Granulocytes # (auto) 0.01 K/uL (0.01-0.20); Immature Granulocytes % (auto) 0.2 %; Lymphocytes # (auto) 0.71 K/uL (1.20-3.40); Lymphocytes % (auto) 13.4 %; Mean Corpuscular Hemoglobin 33.6 pg (25.0-34.0); Mean Corpuscular Hgb Conc 35.8 g/dL (32.0-36.0); Mean Corpuscular Volume 93.7 fL (80.0-100.0); Mean Platelet Volume 9.7 fL (9.4-12.4); Monocytes # (auto) 0.98 K/uL (0.11-0.59); Monocytes % (auto) 18.5 %; Neutrophils # (auto) 3.55 K/uL (1.40-6.50); Neutrophils % (auto) 67.1 %; Platelet Count 217 K/uL (130-400); RDW Coefficient of Variation 13.2 % (11.5-14.5); RDW Standard Deviation 45.7 fL (36.4-46.3); Red Blood Count 3.99 M/uL (4.20-5.40); White Blood Count 5.29 K/ul (4.8-10.8)
[2024-06-21 18:40] LABS: Albumin Globulin Ratio 2.2 (0.9-2); Albumin Level 4.3 gm/dl (3.4-5.0); BUN Creatinine Ratio 18.5 (10-20); Calcium 9.3 mg/dl (8.6-10.3); Creatinine Clr Calc Pharmacy 55.2 ml/min; Potassium 3.8 mmol/L (3.5-5.1); Total Protein 6.3 gm/dl (6.0-8.3)
--- NOTE | 2024-06-21 18:43 | CT Scan Report ---
EXAM: CT Abdomen and Pelvis With Intravenous Contrast INDICATION: Diffuse abdominal pain. TECHNIQUE: Axial computed tomography images of the abdomen and pelvis with intravenous contrast. Sagittal and coronal reformatted images were created and reviewed. This CT exam was performed using one or more of the following dose reduction techniques: automated exposure control, adjustment of the mA and/or kV according to patient size, and/or use of iterative reconstruction technique. CONTRAST: 90 ml of Optiray 320 was administered intravenously. COMPARISON: 09/08/2019 FINDINGS: Limitations: None. Lung bases: No abnormality noted. Pleural space: No visualized pleural effusion or pneumothorax. Heart: No abnormality noted. Mediastinum: No abnormality noted. ABDOMEN: Liver: Low attenuation focus in the liver consistent with a hepatic cyst. No follow-up is necessary. Gallbladder and bile ducts: No calcified stones or surrounding fluid. Pancreas: Homogeneous enhancement. No mass, inflammation or ductal dilation. Spleen: No significant abnormality noted. Adrenals: No significant abnormality noted. Kidneys and ureters: Normal enhancement. No mass, hydronephrosis or visualized stone. Stomach and bowel: Proximal and mid small bowel loops are dilated up to 3.7 cm. Multiple distal small bowel loops are collapsed. There is small amounts of air and stool scattered throughout the colon. Transition point is not distinctly defined but likely in the right pelvis. No pneumatosis. PELVIS: Appendix: No findings to suggest acute appendicitis. Bladder: No filling defects to suggest mass or large stone. No inflammation. Reproductive: No abnormalities noted. ABDOMEN and PELVIS: Intraperitoneal space: There is small amounts of free fluid in the abdomen and pelvis with some interloop scattered fluid. No organized collection. No free air. Generalized mesenteric edema with small amounts of interloop and free fluid noted. There is no organized or drainable collection. Bones/joints: Degenerative changes present throughout the spine. Intact posterior L4-S1 fusion hardware present. No acute osseous abnormality noted. Soft tissues: No significant abnormality noted. Vasculature: No abdominal aortic aneurysm. Lymph nodes: No pathologically enlarged lymph nodes. IMPRESSION: 1. Mid to distal small bowel obstruction. Transition point is likely in the right lower quadrant. Consider adhesions. 2. Mild ascites. ACT 112: Negative or not required by law. Electronically signed by Erica Jenkins 06-21-2024 6:42 PM
[2024-06-21] MEDS ORDERED: PROMETHAZINE 6.25 MG/50.25 ML BAG IV PRN (19:31)
--- NOTE | 2024-06-21 19:31 | History & Physical Report ---
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 Hyperglycemia likely prediabetes, hemoglobin A1c of 5.8 from 2021 Medical telemetry Recheck serum sodium after initial fluid bolus given at the ER Hyponatremia workup Bowel rest, continue NGT decompression General Surgery consult Re: Recurrent SBO (Patient already seen at the ER by provider.) Update hemoglobin A1c DVT prophylaxis. SCDs Full code Text document was generated using [employer] voice recognition software. It may contain grammatical or spelling errors. Kindly contact undersigned for clarification of any documentation item in question. History of Present Illness Chief Complaint: Worsening abdominal pain nausea vomiting Primary Care Provider: Germán Felton History obtained from patient, family, and records. Medical history significant for hypertension, hyperlipidemia, chronic hyponatremia, SIADH as per records, history of seizures as per records, pituitary tumor as per records, anxiety/mood disorder. Last confinement 2020 under Orthopedics spine service for elective lumbar decompression surgery. Patient not feeding well since last week. Progressive achy abdominal pain, with nausea, vomiting symptoms. No bowel movement the last few days which is unusual for her. Denies headache, chest pain, SOB. Patient consulted at [facility] ER in [place], [place] yesterday. Symptoms attributed to viral illness. No x-rays done as per family. Patient brought to ER by family for worsening symptoms. NGT inserted for bowel obstruction. 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 Allergies Allergy/AdvReac Type Severity Reaction Status Date / Time bupropion [From Wellbutrin] AdvReac Severe low Verified 01/26/23 07:50 sodium/requires monitoring while taking hydrochlorothiazide AdvReac Mild SEVERE Verified 01/26/23 07:49 HEADACHES , DIZZINESS Home Medications Medication Instructions Recorded Confirmed Type cholecalciferol (vitamin D3) 50 2,000 unit PO QAM 02/22/19 06/21/24 History mcg (2,000 unit) tablet (Vitamin D3) lorazepam 0.5 mg tablet (Ativan) 0.5 mg PO HS 02/28/19 06/21/24 History acetaminophen 500 mg tablet 1,000 mg PO Q4H PRN Pain 09/08/19 06/21/24 History (Tylenol Extra Strength) polyethylene glycol 3350 17 gram 17 g PO QAM PRN Constipation 06/04/20 06/21/24 History oral powder packet (Miralax) glucosamine sulf dipot 1 cap PO QAM 07/09/20 06/21/24 History chlr,msm,chond 550 mg-C 30 mg-sandra 1 mg capsule (Glucosamine Chondroitin) Bifidobacterium infantis 10.5 mg 10 mg PO QAM 08/26/20 06/21/24 History (10 million cell) chewable tablet (Align) biotin 5,000 mcg disintegrating 10,000 mcg PO QAM 08/26/20 06/21/24 History tablet atorvastatin 20 mg tablet 20 mg PO HS 01/26/23 06/21/24 History azelastine 137 mcg (0.1 %) nasal 1 spray intranasal BID PRN allergy 01/26/23 01/27/23 History spray relief bupropion HCl 150 mg tablet,12 hr 150 mg PO QAM 01/26/23 06/21/24 History sustained-release (Wellbutrin SR) buspirone 10 mg tablet 15 mg PO TID 01/26/23 06/21/24 History coQ10 (ubiquinol) 200 mg capsule 200 mg PO HS 01/26/23 06/21/24 History cyanocobalamin (vitamin B-12) 1,000 mcg PO QAM 01/26/23 06/21/24 History 1,000 mcg tablet lifitegrast 5 % eye drops in a 1 drp ophthalmic (eye) AMPM PRN 01/26/23 06/21/24 History dropperette (Xiidra) allergy relief loratadine 10 mg tablet (Claritin) 10 mg PO QAM PRN Allergic Symptoms 01/26/23 06/21/24 History losartan 50 mg tablet 50 mg PO BID 01/26/23 01/27/23 History magnesium glycinate 100 mg (as 100 mg PO QAM PRN Unknown 01/26/23 06/21/24 History glycinate) tablet vitamins A,C,A-qoyg-uxtgeq 2,148 2 tab PO QAM 01/26/23 06/21/24 History mcg-113 mg-45 mg-17.4 mg tablet (PreserVision AREDS) Past Med/Surg History Problem List (Updated 06/21/24 @ 20:38 by ROLO RodriguezC) Small bowel obstruction Encounter for pre-operative examination HTN (hypertension) Postoperative ileus Neurogenic claudication due to lumbar spinal stenosis Anxiety Hyponatremia History of seizure S/P spinal surgery HLD (hyperlipidemia) Medical History Arthritis Macular degeneration Hyperlipidemia Anxiety and depression Seizure Aug 30, 2020 > [facility] > felt caused by low sodium and taking Wellbutrin > saw neurology from [place] and was cleared per pt History of intestinal obstruction 2/2 tethered suture from umbilical hernia repair. Spondylisthesis Seasonal allergies HTN (hypertension) Spinal stenosis Surgical History Fusion of spine lumbar History of cataract surgery rt/left [place] teeth extracted History of colonoscopy S/P exploratory laparotomy (02/25/19) Exploratory laparotomy, lysis of adhesions, excision of suture, closure of enterotomy - Ke Phan MD 02/25/19 History of shoulder surgery LEFT ROTATOR CUFF History of hand surgery right/left History of lumpectomy breast lumpectomy x 3 (benign) Status post inguinal hernia repair H/O hernia repair Complicated by tethered suture causing bowel obstruction-OK NOW Family History Other No family history of adverse response to anesthesia Social History Smoking Status: Never smoker Second Hand Exposure: Yes (as a child); Do You Dip or Chew Tobacco: No; Hx Alcohol Use: Yes Alcohol type: wine Alcohol type Comment: socially Alcohol Intake Frequency: 2-4 x/Month Hx Substance Use: No Preferred Language: Romanian Communication Ability: Effective Flame Channeler Required: No Beliefs That Will Affect Care: None marital status: Current Living Situation: Spouse Feels Safe at Home: Yes Assistive Devices: None Review of Systems Review of Systems: As per HPI, all other systems reviewed and negative Physical Exam Physical Exam: GENERAL: uncomfortable, slightly anxious, looks younger than stated age, no respiratory distress SKIN: Normal color, warm HEENT: [place] palpebral conjunctivae, no ptosis, dry buccal mucosa, NGT in place NECK : Supple, no tenderness CHEST : CTA, no tenderness HEART : RRR, no obvious murmurs ABDOMEN: Some distention, hypogastric tenderness EXTREMITIES : No LE swelling/tenderness, no other conspicuous deformities noted NEUROLOGIC : Coherent, no facial asymmetry, no other gross focality Results & Data Results & Data Vital Signs (Past 12 Hours) Vital Signs Temp Pulse Pulse Resp BP BP Pulse Ox 06/21/24 18:10 97 06/21/24 18:00 73 06/21/24 17:45 72 20 138/77 99 06/21/24 17:29 36.5 C 84 19 121/79 98 O2 Del Method 06/21/24 18:10 Room Air 06/21/24 18:00 06/21/24 17:45 Room Air 06/21/24 17:29 Room Air Laboratory Results Laboratory Results WBC 5.29 K/ul (4.8-10.8) 06/21/24 17:55 RBC 3.99 M/uL (4.20-5.40) L 06/21/24 17:55 Hgb 13.4 g/dl (12.0-16.0) 06/21/24 17:55 POC Hgb 13.9 g/dl (12.0-16.0) 06/21/24 18:00 Hct 37.4 % (37.0-47.0) 06/21/24 17:55 POC Hct 41 % (37-47) 06/21/24 18:00 MCV 93.7 fL (80.0-100.0) 06/21/24 17:55 MCH 33.6 pg (25.0-34.0) 06/21/24 17:55 MCHC 35.8 g/dL (32.0-36.0) 06/21/24 17:55 RDW Std Deviation 45.7 fL (36.4-46.3) 06/21/24 17:55 RDW Coeff of Bj 13.2 % (11.5-14.5) 06/21/24 17:55 Plt Count 217 K/uL (130-400) 06/21/24 17:55 MPV 9.7 fL (9.4-12.4) 06/21/24 17:55 Immature Gran % (Auto) 0.2 % 06/21/24 17:55 Neut % (Auto) 67.1 % 06/21/24 17:55 Lymph % (Auto) 13.4 % 06/21/24 17:55 [place] % (Auto) 18.5 % 06/21/24 17:55 Eos % (Auto) 0.4 % 06/21/24 17:55 Baso % (Auto) 0.4 % 06/21/24 17:55 Neut # (Auto) 3.55 K/uL (1.40-6.50) 06/21/24 17:55 Lymph # (Auto) 0.71 K/uL (1.20-3.40) L 06/21/24 17:55 [place] # (Auto) 0.98 K/uL (0.11-0.59) H 06/21/24 17:55 Eos # (Auto) 0.02 K/uL (0.00-0.50) 06/21/24 17:55 Baso # (Auto) 0.02 K/uL (0.00-0.20) 06/21/24 17:55 Immature Gran # (Auto) 0.01 K/uL (0.01-0.20) 06/21/24 17:55 POC Sodium 127 mmol/L (135-144) L 06/21/24 18:00 Sodium 128 mmol/L (136-145) L 06/21/24 17:55 POC Potassium 3.9 mmol/L (3.3-5.0) 06/21/24 18:00 Potassium 3.8 mmol/L (3.5-5.1) 06/21/24 17:55 POC Chloride 93 mmol/L (101-112) L 06/21/24 18:00 Chloride 94 mmol/L (98-107) L 06/21/24 17:55 Carbon Dioxide 25 mmol/L (21-32) 06/21/24 17:55 POC Total CO2 22 mmol/L (24-31) L 06/21/24 18:00 Anion Gap 9 (3-11) 06/21/24 17:55 POC Anion Gap 17.0 mmol/L (16-25) 06/21/24 18:00 POC BUN 17 mg/dl (7-18) 06/21/24 18:00 BUN 15 mg/dl (6-23) 06/21/24 17:55 Creatinine 0.81 mg/dl (0.6-1.2) 06/21/24 17:55 POC Creatinine 0.7 mg/dl (0.6-1.3) 06/21/24 18:00 Est Cr Clr Drug Dosing 55.2 ml/min 06/21/24 17:55 eGFR 78.04 06/21/24 17:55 BUN/Creatinine Ratio 18.5 (10-20) 06/21/24 17:55 Glucose 123 mg/dl (70-99(Fasting)) H 06/21/24 17:55 POC Glucose (other) 126 mg/dl (70-99) H 06/21/24 18:00 Calcium 9.3 mg/dl (8.6-10.3) 06/21/24 17:55 POC Ioniz Calcium Jeni 1.13 mmol/l (1.12-1.32) 06/21/24 18:00 Total Bilirubin 1.0 mg/dl (0.2-1.0) 06/21/24 17:55 AST 23 U/L (13-39) 06/21/24 17:55 ALT 21 U/L (7-52) 06/21/24 17:55 Alkaline Phosphatase 54 U/L (34-104) 06/21/24 17:55 Total Protein 6.3 gm/dl (6.0-8.3) 06/21/24 17:55 Albumin 4.3 gm/dl (3.4-5.0) 06/21/24 17:55 Globulin 2.0 gm/dl (2.5-4.0) L 06/21/24 17:55 Albumin/Globulin Ratio 2.2 (0.9-2) H 06/21/24 17:55 Lipase 39 U/L (11-82) 06/21/24 17:55 Impressions Abdomen/Pelvis CT 06/21/24 17:53 EXAM: CT Abdomen and Pelvis With Intravenous Contrast INDICATION: Diffuse abdominal pain. TECHNIQUE: Axial computed tomography images of the abdomen and pelvis with intravenous contrast. Sagittal and coronal reformatted images were created and reviewed. This CT exam was performed using one or more of the following dose reduction techniques: automated exposure control, adjustment of the mA and/or kV according to patient size, and/or use of iterative reconstruction technique. CONTRAST: 90 ml of Optiray 320 was administered intravenously. COMPARISON: 09/08/2019 FINDINGS: Limitations: None. Lung bases: No abnormality noted. Pleural space: No visualized pleural effusion or pneumothorax. Heart: No abnormality noted. Mediastinum: No abnormality noted. ABDOMEN: Liver: Low attenuation focus in the liver consistent with a hepatic cyst. No follow-up is necessary. Gallbladder and bile ducts: No calcified stones or surrounding fluid. Pancreas: Homogeneous enhancement. No mass, inflammation or ductal dilation. Spleen: No significant abnormality noted. Adrenals: No significant abnormality noted. Kidneys and ureters: Normal enhancement. No mass, hydronephrosis or visualized stone. Stomach and bowel: Proximal and mid small bowel loops are dilated up to 3.7 cm. Multiple distal small bowel loops are collapsed. There is small amounts of air and stool scattered throughout the colon. Transition point is not distinctly defined but likely in the right pelvis. No pneumatosis. PELVIS: Appendix: No findings to suggest acute appendicitis. Bladder: No filling defects to suggest mass or large stone. No inflammation. Reproductive: No abnormalities noted. ABDOMEN and PELVIS: Intraperitoneal space: There is small amounts of free fluid in the abdomen and pelvis with some interloop scattered fluid. No organized collection. No free air. Generalized mesenteric edema with small amounts of interloop and free fluid noted. There is no organized or drainable collection. Bones/joints: Degenerative changes present throughout the spine. Intact posterior L4-S1 fusion hardware present. No acute osseous abnormality noted. Soft tissues: No significant abnormality noted. Vasculature: No abdominal aortic aneurysm. Lymph nodes: No pathologically enlarged lymph nodes. IMPRESSION: 1. Mid to distal small bowel obstruction. Transition point is likely in the right lower quadrant. Consider adhesions. 2. Mild ascites. ACT 112: Negative or not required by law. Electronically signed by Erica Jenkins 06-21-2024 6:42 PM Diagnostic Findings Chest x-ray as per my interpretation atelectasis
--- NOTE | 2024-06-21 19:35 | Surgery Consultation ---
Date of Consultation June 21, 2024 Assessment & Plan (1) Small bowel obstruction: Patient presented to the ED this evening due to ongoing abdominal pain, nausea and vomiting since Wednesday afternoon. Patient does have a previous surgical history of a left inguinal hernia repair along with an exploratory laparotomy with [facility] in February 2019. Patient was worked up in the ED and CT imaging revealed an SBO. Patient was seen and evaluated this evening. She is tender throughout her abdomen mostly in the lower region however she currently has no signs of an acute abdomen that would warrant emergent surgical intervention. Recommend conservative management for now with bowel rest, strict NPO, IV hydration, and NGT to be placed and put to suction. Patient will be admitted to the medical service for management of chronic conditions. Surgery team will continue to follow. History of Present Illness Reason for Consultation: SBO History of Present Illness Patient is a 69-year-old female who presented to the ED due to complaints of abdominal pain. Patient states that her pain started roughly around Wednesday afternoon after eating lunch as been persistent since. Her pain is mostly located in her lower abdominal region and has been persistent. Patient states that she has also had associated nausea and vomiting with the onset of her pain. Patient denies passing gas or moving her bowels since her symptoms started. She states that her last bowel movement was a few days ago but does tell me that she has a longstanding history of constipation so this is not unusual for her. The patient also has a past surgical history of a left inguinal hernia repair that was done in [facility] in 2018. She continued with pain post-operatively and was then seen at our facility in February 2019 and ultimately underwent surgical intervention for an exploratory laparotomy with lysis of adhesions and excision of suture by Dr. Phan. She also states she has had a SBO in the past which was treated conservatively at that time. Upon workup this evening CT imaging revealed a SBO. Patient was seen and evaluated in the ED, she is accompanied by both her and daughter. Patient tells me that she has not had any recent episodes of emesis however is complaining of ongoing belching and abdominal pain. She otherwise denies any CP, SOB, or new onset fever or chills. Allergies Allergy/AdvReac Type Severity Reaction Status Date / Time bupropion [From Wellbutrin] AdvReac Severe low Verified 01/26/23 07:50 sodium/requires monitoring while taking hydrochlorothiazide AdvReac Mild SEVERE Verified 01/26/23 07:49 HEADACHES , DIZZINESS Home Medications Medication Instructions Recorded Confirmed Type cholecalciferol (vitamin D3) 50 2,000 unit PO QAM 02/22/19 06/21/24 History mcg (2,000 unit) tablet (Vitamin D3) lorazepam 0.5 mg tablet (Ativan) 0.5 mg PO HS 02/28/19 06/21/24 History acetaminophen 500 mg tablet 1,000 mg PO Q4H PRN Pain 09/08/19 06/21/24 History (Tylenol Extra Strength) polyethylene glycol 3350 17 gram 17 g PO QAM PRN Constipation 06/04/20 06/21/24 History oral powder packet (Miralax) glucosamine sulf dipot 1 cap PO QAM 07/09/20 06/21/24 History chlr,msm,chond 550 mg-C 30 mg-sandra 1 mg capsule (Glucosamine Chondroitin) Bifidobacterium infantis 10.5 mg 10 mg PO QAM 08/26/20 06/21/24 History (10 million cell) chewable tablet (Align) biotin 5,000 mcg disintegrating 10,000 mcg PO QAM 08/26/20 06/21/24 History tablet atorvastatin 20 mg tablet 20 mg PO HS 01/26/23 06/21/24 History azelastine 137 mcg (0.1 %) nasal 1 spray intranasal BID PRN allergy 01/26/23 01/27/23 History spray relief bupropion HCl 150 mg tablet,12 hr 150 mg PO QAM 01/26/23 06/21/24 History sustained-release (Wellbutrin SR) buspirone 10 mg tablet 15 mg PO TID 01/26/23 06/21/24 History coQ10 (ubiquinol) 200 mg capsule 200 mg PO HS 01/26/23 06/21/24 History cyanocobalamin (vitamin B-12) 1,000 mcg PO QAM 01/26/23 06/21/24 History 1,000 mcg tablet lifitegrast 5 % eye drops in a 1 drp ophthalmic (eye) AMPM PRN 01/26/23 06/21/24 History dropperette (Xiidra) allergy relief loratadine 10 mg tablet (Claritin) 10 mg PO QAM PRN Allergic Symptoms 01/26/23 06/21/24 History losartan 50 mg tablet 50 mg PO BID 01/26/23 01/27/23 History magnesium glycinate 100 mg (as 100 mg PO QAM PRN Unknown 01/26/23 06/21/24 History glycinate) tablet vitamins A,C,E-mkbr-blyave 2,148 2 tab PO QAM 01/26/23 06/21/24 History mcg-113 mg-45 mg-17.4 mg tablet (PreserVision AREDS) Patient History Medical History Arthritis Macular degeneration Hyperlipidemia Anxiety and depression Seizure Aug 30, 2020 > [facility] > felt caused by low sodium and taking Wellbutrin > saw neurology from [place] and was cleared per pt History of intestinal obstruction 2/2 tethered suture from umbilical hernia repair. Spondylisthesis Seasonal allergies HTN (hypertension) Spinal stenosis Surgical History Fusion of spine lumbar History of cataract surgery rt/left [place] teeth extracted History of colonoscopy S/P exploratory laparotomy (02/25/19) Exploratory laparotomy, lysis of adhesions, excision of suture, closure of enterotomy - Ke Phan MD 02/25/19 History of shoulder surgery LEFT ROTATOR CUFF History of hand surgery right/left History of lumpectomy breast lumpectomy x 3 (benign) Status post inguinal hernia repair H/O hernia repair Complicated by tethered suture causing bowel obstruction-OK NOW Family History Other No family history of adverse response to anesthesia Social History Smoking Status: Never smoker Second Hand Exposure: Yes (as a child); Do You Dip or Chew Tobacco: No; Hx Alcohol Use: Yes Alcohol type: hard liquor Alcohol type Comment: socially Alcohol Intake Frequency: 2-4 x/Month Hx Substance Use: No Preferred Language: Nigerien Communication Ability: Effective Pre Coder Required: No Beliefs That Will Affect Care: None marital status: Current Living Situation: Spouse Feels Safe at Home: Yes Assistive Devices: None Review of Systems Constitutional: no fever, no chills, no sweats and no weakness Respiratory: no cough, no dyspnea and no problem reported Cardiovascular: no chest pain, no palpitations and no syncope Gastrointestinal: + abdominal pain, + belching, + nausea, + vomiting and + constipation Physical Exam Constitutional: WD/WN, vitals as above Respiratory: normal respiratory effort, lungs clear to auscultation Cardiovascular: RRR, no murmur, no edema Gastrointestinal (Abdomen): Inspection/Auscultation: + abdominal surgical scar (old midline incision appreciated ); abdomen not distended Abdomen is soft and nondistended. +TTP throughout however with no rebound, guarding, or signs of peritonitis. Skin: no rashes, warm and dry Psychiatric: A+Ox3, euthymic affect Results & Data Vital Signs (Past 12 Hours) Vital Signs Temp Pulse Pulse Resp BP BP Pulse Ox 06/21/24 18:10 97 06/21/24 18:00 73 06/21/24 17:45 72 20 138/77 99 06/21/24 17:29 36.5 C 84 19 121/79 98 O2 Del Method 06/21/24 18:10 Room Air 06/21/24 18:00 06/21/24 17:45 Room Air 06/21/24 17:29 Room Air Diagnostic Findings EXAM: CT Abdomen and Pelvis With Intravenous Contrast INDICATION: Diffuse abdominal pain. TECHNIQUE: Axial computed tomography images of the abdomen and pelvis with intravenous contrast. Sagittal and coronal reformatted images were created and reviewed. This CT exam was performed using one or more of the following dose reduction techniques: automated exposure control, adjustment of the mA and/or kV according to patient size, and/or use of iterative reconstruction technique. CONTRAST: 90 ml of Optiray 320 was administered intravenously. COMPARISON: 09/08/2019 FINDINGS: Limitations: None. Lung bases: No abnormality noted. Pleural space: No visualized pleural effusion or pneumothorax. Heart: No abnormality noted. Mediastinum: No abnormality noted. ABDOMEN: Liver: Low attenuation focus in the liver consistent with a hepatic cyst. No follow-up is necessary. Gallbladder and bile ducts: No calcified stones or surrounding fluid. Pancreas: Homogeneous enhancement. No mass, inflammation or ductal dilation. Spleen: No significant abnormality noted. Adrenals: No significant abnormality noted. Kidneys and ureters: Normal enhancement. No mass, hydronephrosis or visualized stone. Stomach and bowel: Proximal and mid small bowel loops are dilated up to 3.7 cm. Multiple distal small bowel loops are collapsed. There is small amounts of air and stool scattered throughout the colon. Transition point is not distinctly defined but likely in the right pelvis. No pneumatosis. PELVIS: Appendix: No findings to suggest acute appendicitis. Bladder: No filling defects to suggest mass or large stone. No inflammation. Reproductive: No abnormalities noted. ABDOMEN and PELVIS: Intraperitoneal space: There is small amounts of free fluid in the abdomen and pelvis with some interloop scattered fluid. No organized collection. No free air. Generalized mesenteric edema with small amounts of interloop and free fluid noted. There is no organized or drainable collection. Bones/joints: Degenerative changes present throughout the spine. Intact posterior L4-S1 fusion hardware present. No acute osseous abnormality noted. Soft tissues: No significant abnormality noted. Vasculature: No abdominal aortic aneurysm. Lymph nodes: No pathologically enlarged lymph nodes. IMPRESSION: 1. Mid to distal small bowel obstruction. Transition point is likely in the right lower quadrant. Consider adhesions. 2. Mild ascites. PG Care Time/CCT Total # of Minutes Spent Total Time Spent with Patient: Total time spent is greater than 50% in coordination of care (as documented) at patient's floor/unit and/or counseling patient: Coding Level of Care Code 66668 INT INP/OBS CARE MIN Diagnoses Small bowel obstruction K56.609
[2024-06-21 19:49] LABS: Magnesium 1.7 mg/dl (1.7-2.4)
[2024-06-21 20:04] LABS: Thyroid Stimulating Hormone 1.859 uIu/ml (0.300-4.500)
[2024-06-21] MEDS: LORazepam 2 MG/1 ML VIAL IV PRN (20:06)
--- NOTE | 2024-06-21 20:54 | XRay Report ---
Exam(s): XR CXR 1 VIEW EXAM: XR Chest, 1 View CLINICAL HISTORY: Reason for exam: hyponatremia. TECHNIQUE: Frontal view of the chest. COMPARISON: Chest x-ray: 06/13/2020 FINDINGS: An endotracheal tube terminates about 3.5 cm proximal to the ezequiel. There is likely mal-placement of a NG tube with its distal tip return back into the esophagus. Lungs: Hyperinflated lungs. Bilateral bronchial wall and perihilar interstitial mild thickening.. No consolidation. Pleural space: No pleural effusion. No pneumothorax. Heart: No cardiomegaly. Mediastinum: Unremarkable. Normal mediastinal contour. Bones/joints: Osteopenia. Degenerative changes of the spine and left shoulder. Increased left AC distance.. No acute fracture. IMPRESSION: An appropriately placed endotracheal tube. Likely misplacement of a NG tube. Recommend follow-up. No acute cardiopulmonary abnormality noted. . Electronically signed by: Jenn Dawn MD, JEFFREYR 06/21/24 20:53 PM
--- NOTE | 2024-06-21 21:01 | XRay Report ---
Exam(s): XR KUB, XR KUB EXAM: XR Abdomen, 1 View CLINICAL HISTORY: Reason for exam: post NG. TECHNIQUE: Frontal supine view of the abdomen/pelvis. COMPARISON: 03/04/2019 FINDINGS: A NG tube is seen terminating in the topography of the stomach. Gastrointestinal tract: Gas filled mildly dilated bowel loops are visualized. Bones/joints: Unremarkable. No acute fracture. Other findings: . Visualized lungs: No consolidation or pleural effusion IMPRESSION: NG tube appears appropriately placed. . Electronically signed by: Jenn Dawn MD, JEFFREYR 06/21/24 21:00 PM
[2024-06-21 21:17] LABS: Adenovirus PCR Not Detected (NotDetected); Bordetella parapertussis PCR Not Detected (NotDetected); Bordetella pertussis PCR Not Detected (NotDetected); Chlamydia pneumoniae PCR Not Detected (NotDetected); Coronavirus 229E PCR Not Detected (NotDetected); Coronavirus CoV-2 (COVID19)PCR Not Detected (NotDetected); Coronavirus HKU1 PCR Not Detected (NotDetected); Coronavirus NL63 PCR Not Detected (NotDetected); Coronavirus OC43PCR Not Detected (NotDetected); Human Metapneumovirus PCR Not Detected (NotDetected); Influenza A PCR Not Detected (NotDetected); Influenza B PCR Not Detected (NotDetected); Mycoplasma pneumoniae PCR Not Detected (NotDetected); Parainfluenza Virus 1 PCR Not Detected (NotDetected); Parainfluenza Virus 2 PCR Not Detected (NotDetected); Parainfluenza Virus 3 PCR Not Detected (NotDetected); Parainfluenza Virus 4 PCR Not Detected (NotDetected); Respiratory Syncytial VirusPCR Not Detected (NotDetected); Rhinovirus/Enterovirus PCR Not Detected (NotDetected)
[2024-06-21] MEDS: bisacodyL 10 MG SUPP PR STA (21:17)
[2024-06-21 21:47] LABS: Estimated Average Glucose 108 mg/dl; Hemoglobin A1C 5.4 % (4.5-5.6)
[2024-06-21] MEDS ORDERED: LORATADINE 10 MG TAB PO PRN (22:06)
[2024-06-21] MEDS: METOPROLOL TARTRATE 1 MG/ML VIAL IV STA (22:29)
[2024-06-21] MEDS ORDERED: ARTIFICIAL TEARS OP PRN (22:34)
[2024-06-22 01:05] LABS: Appearance Urine Clear (Clear); Bacteria Urine Automated None Seen (None Seen); Bilirubin Urine Negative (Negative); Blood Urine Negative (Negative); Cast Urine Automated 0-2 /lpf (0-2); Color Urine Yellow; Epithelial Cell Urine Auto 0-2 /hpf (0-2); Glucose Urine UA Negative (Negative); Ketones Urine 2+ (Negative); Leukocyte Esterase Urine Negative (Negative); Nitrite Urine Negative (Negative); Protein Urine Trace (Negative); RBC Urine Automated 0-2 /hpf (0-2); Specific Gravity Urine > 1.045 (1.000-1.030); Urobilinogen Urine Negative (Negative); WBC Urine Automated 0-5 /hpf (0-5); pH Urine 6.5 (4.5-7.5)
[2024-06-22] MEDS: SODIUM CHLORIDE 0.9% 1,000 ML IV ONE (02:47)
[2024-06-22] MEDS: ACETAMINOPHEN 1,000 MG/100 ML VIAL IV PRN (03:11)
[2024-06-22 05:59] LABS: Basophils # (auto) 0.02 K/uL (0.00-0.20); Basophils % (auto) 0.5 %; Eosinophils # (auto) 0.02 K/uL (0.00-0.50); Eosinophils % (auto) 0.5 %; Hematocrit (blood only) 31.4 % (37.0-47.0); Hemoglobin 11.2 g/dl (12.0-16.0); Immature Granulocytes # (auto) 0.01 K/uL (0.01-0.20); Immature Granulocytes % (auto) 0.2 %; Lymphocytes % (auto) 18.1 %; Mean Corpuscular Hemoglobin 33.3 pg (25.0-34.0); Mean Corpuscular Hgb Conc 35.7 g/dL (32.0-36.0); Mean Corpuscular Volume 93.5 fL (80.0-100.0); Mean Platelet Volume 9.3 fL (9.4-12.4); Monocytes # (auto) 1.07 K/uL (0.11-0.59); Monocytes % (auto) 24.3 %; Neutrophils # (auto) 2.49 K/uL (1.40-6.50); Neutrophils % (auto) 56.4 %; Platelet Count 193 K/uL (130-400); RDW Coefficient of Variation 13.2 % (11.5-14.5); RDW Standard Deviation 45.2 fL (36.4-46.3); Red Blood Count 3.36 M/uL (4.20-5.40); White Blood Count 4.41 K/ul (4.8-10.8)
[2024-06-22 06:14] LABS: BUN Creatinine Ratio 23.6 (10-20); Calcium 8.4 mg/dl (8.6-10.3); Creatinine Clr Calc Pharmacy 65.4 ml/min; Potassium 3.7 mmol/L (3.5-5.1)
[2024-06-22] MEDS ORDERED: NON-FORMULARY MEDICATION (Vitamins A,C,E-Zinc-Copper [Preservision Areds] 2,148 mcg-113 mg PO SCH (09:00)
[2024-06-22] MEDS ORDERED: CHLORASEPTIC (PHENOL) 1.4% SOLN 180 ML BTL MT PRN (09:49)
[2024-06-22] MEDS: POTASSIUM CHLORIDE 20 MEQ in LACTATED RINGER'S 1,000 ML IV SCH (10:00)
[2024-06-22] MEDS: CYANOCOBALAMIN (B-12) 500 MCG TABLET PO SCH (10:32)
[2024-06-22] MEDS: LOSARTAN POTASSIUM 50 MG TAB PO SCH (10:33)
[2024-06-22] MEDS: busPIRone 15 MG TAB PO SCH (10:34)
--- NOTE | 2024-06-22 11:28 | XRay Report ---
KUB HISTORY: Acute generalized abdominal pain with reported small bowel obstruction sbo COMPARISON: KUB 06/21/2024, CT 06/21/2024 FINDINGS: Contrast in the urinary bladder lumen. Lumbar spinal fusion hardware. Right abdominal surgi swati clips. Lumbar levoscoliosis. The enteric tube has been withdrawn, now with distal tip overlying t he midline mid chest. There is persistent small bowel distention with dilated loops measuring up to 4 .5 cm, not significantly changed. No renal calculi. No ureteral calculi. No pneumoperitoneum or pneu matosis. No fracture. IMPRESSION: Persistent small bowel obstruction with withdrawn enteric tube, distal tip now overlying the mid ches t. ACT 112: Negative or not required by law. The above report was generated using voice recognition software. It may contain grammatical, syntax o r spelling errors. Electronically signed by: Jayson Osborn M.D. 06/22/2024 11:26 AM
--- OUTSIDE RECORDS SUMMARY | 2024-06-22 11:44 | External Medical Summary | Summary of Care ---
Author Name Unknown Organization [facility] Address [address] [facility] [place] [address] Phone [phone] Care Team Providers Care Emergency Vehicle Driver Name Role Phone Germán Felton MD Primary Care Provider + Reason for Visit * Reason Comments Follow Up 3-4 month f/u; pt re port horizontal line looks like an front desk monitor, and vertical lines are starting to do it as well she noticed one th drive over Encounter Details Date Type Department Care Team (Late st Contact Info) Description 06/06/2024 2:15 PM EDT Office Visit Ophthalmology, [facility] [address] [place] [address] David Kinney, DO [address] [place] [address] Nonexudative age-related macular degeneration, bilateral, intermediate dry stage*; Pseudophakia Allergies Active Allergy Reactions Criticality Noted Date Comments Abaloparatide 06/06/2024 Other Reaction(s): heart palpitations Bupropion Medium 01/26/2023 Other Reaction(s): low sodium/requires monitoring while taking Hydrochlorothiazide Low 01/26/2023 Other Reaction(s): SEVERE HEADACHES , DIZZINESS Teriparatide 06/06/2024 Other Reaction(s): Palpitations documented as of this encounter (statuses as of 06/06/2024) Medications Medication Sig Dispensed Refills Start Date End Date Status Ibuprofen 200 MG Oral Capsule Take 1 Capsule by mouth every 4 hours as needed for Pain. Active Loratadine 10 MG Oral Capsule Take 1 Capsule by mouth in the morning. Active Cholecalciferol (VITAMIN D3) 2000 units Capsule Take 1,000 Units by mouth. Active Coenzyme Q10 (CO Q 10) 10 MG CAPS Active dicyclomine (BENTYL) 10 MG Capsule Take 1 Cap by mouth 2 times a day. 60 Cap 1 02/14/2019 Active NATURAL SUPPLEMENTIndication s:369 plant base ( fish oil) Take by mouth daily. Acti ve polyethylene glycol 3350 (MIRALAX) 119 gram POWDIndications:taki ng half capsule in the morning and in the evening Take 119 g by mouth once. Active Atorvastatin Calcium 20 MG Oral Tablet Take 1 Tablet by mouth in the morning. Active Fish Oil 1000 MG Oral Capsule Take 1 Capsule by mouth in the morning. Active Losartan Potassium 25 MG Oral Tablet (Cozaar) Take 2 Tablets by mouth in the morning and 2 Tablets before bedtime. Active Aspirin 81 MG Oral Tablet Chewable Take 1 Tablet by mouth in the morning. Active Biotin 1 MG Oral Capsule Take 1 Capsule by mouth in the morning. 5000mg. Active Pro-C-Dure 5 2 X 40 MG/ML Injection Kit Inject as directed. Active PreserVision AREDS Oral Capsule Take 1 Capsule by mouth in the morning. Active Vitamin B-12 1000 MCG Oral Tablet (Cyanocobalamin) Take 1 Tablet by mouth in the morning. Active Famotidine 10 MG Oral Tablet (Pepcid AC) Take 1 Tablet by mouth in the morning and 1 Tablet before bedtime. Chewable . Active busPIRone HCl 10 MG Oral Tablet (Buspar) Take 1 Tablet by mouth in the morning and 1 Tablet at noon and 1 Tablet in the evening and 1 Tablet before bedtime. Active LORazepam 0.5 MG Oral Tablet (Ativan) Take 1 Tablet by mouth every 6 hours as needed. Active Glucosamine Chond Complex/MSM Oral Tablet Take 1 Tablet by mouth in the morning and 1 Tablet before bedtime. Active Lisinopril 40 MG Oral Tablet Take 1 Tablet by mouth in the morning. 09/06/2023 Active amLODIPine Besylate 5 MG Oral Tablet (Norvasc) Take 1 Tablet by mouth in the morning. 09/07/2023 Active Ubiquinol 200 MG Oral Capsule 200 mg. 01/26/2023 Active Azelastine HCl 0.1 % Nasal Solution (Astelin) Administer 2 Sprays into nostril as needed. 12/31/2022 Active Nitroglycerin 0.4 MG Sublingual Tablet Sublingual (Nitrostat) Place 1 Tablet under the tongue every 5 minutes as needed. 01/06/2023 Active cycloSPORINE 0.05 % Ophthalmic Emulsion (Restasis) Instill 1 Drop into both eyes in the morning and 1 Drop before bedtime. Active Theratears 0.25 % Ophthalmic Solution (Carboxymethylcellul ose Sodium) Instill into eye. Active buPROPion HCl 100 MG Oral Tablet (Wellbutrin) Take 2 Tablets by mouth every morning. Active documented as of this encounter (statuses as of 06/06/2024) Active Problems No known active problems documented as of this encounter (statuses as of 06/06/2024) Social History Tobacco Use Types Packs/Day Years Used Date Smoking Tobacco: Never Smokeless Tobacco: Never Alcohol Use Standard Drinks/Week Comments Yes 0 (1 standard drink = 0.6 oz pur e alcohol) occasional, wine Utilities Answer Date Recorded Do you have trouble paying y our heating, water, or electric bill? (Adult - for ages 18 years and over) Not on file 01/25/2024 Is your family able to pay t he heat, water, or electric bill? (Household - for ages 0-17 years) Not on file 01/25/2024 Does your family have access to good internet? (Household - for ages 0-17 years) Not on file 01/25/2024 Social Connections Answer Date Recorded How often do you feel lonely or isolated from those around you? (Adult - for ages 18 years and over) Not on file 01/25/2024 Sex and Gender Information Value Date Recorded Sex Assigned at Not on file Gender Identity Not on file Sexual Orientation Not on file Job Start Date Occupation Industry Not on file Not on file Not on file documented as of this encounter Progress Notes * David Kinney DO - 06/06/2024 2:15 PM EDT [facility] [place] Nursing Notes: Citlaly Peña, MED ASSIST 06/06/24 1416 Signed Adair Ramos is a 69 year old year old female who presents for Inter nonexud AMD OU. Last Office Visit: 03/28/2024 (in office), Visit date not found (telemedicine) Patient currently states 3-4 month f/u; pt report horizontal line looks like an front desk monitor, and vertical lines are starting to do it as well she noticed one th drive over Are you diabetic? No Do you drive? yes OCT image(s) of both eyes acquired and filed/scanned into chart. Base Eye Exam Visual Acuity (Snellen - Linear) Right Left Dist sc 20/40 -1 20/25 -1 Dist ph sc 20/20 -2 Tonometry (Tonopen, 2:15 PM) Right Left Pressure 18 18 Pupils Dark Shape React APD Right 5 Round Brisk None Left 5 Round Brisk None Visual Velarde (Counting fingers) Right Left Full Full Extraocular Movement Right Left Full, Ortho Full, Ortho Neuro/Psych Oriented x3: Yes Mood/Affect: Normal Dilation Both eyes: 0.5% Proparacaine @ 2:13 PM Dilation #2 Both eyes: 1.0% Mydriacyl, 2.5% Phenylephrine @ 2:14 PM Dilation #3 Both eyes: 1.0% Mydriacyl, 2.5% Phenylephrine @ 2:16 PM Dilation Comments Patient cautioned that effects of dilation may last 2-7 hours dependant upon individual reaction. It was discussed that driving while dilated is not recommended. EXTERNAL: The ocular adnexae are unremarkable. SLE: Lids/Lashes: wnl OU Conjunctiva/Sclera: quiet OU Cornea: clear OU Anterior Chamber: deep and quiet OU Iris: normal OU; no NVI OU Lens: PCIOL OU Dilated fundus exam OD: vitreous: clear optic nerve: 0.3, no edema/pallor/NVD macula: drusen, pig clumping/vitelliform vessels: wnl periphery: wnl, no RT/RD Dilated fundus exam OS: vitreous: clear optic nerve: 0.3, no edema/pallor/NVD macula: drusen, pig clumping/vitelliform vessels: wnl periphery: wnl, no RT/RD OCT Interpretation: OD: drusen, no irf, srf appearance--no sig change OS: drusen, no irf, srf appearance--no sig change OCTA Interpretation: OD: no cnv OS: no cnv A/P: 1. Intermediate Nonexudative Age-Related Macular Degeneration OU -no cnv -has some metamorphopsia OU which are stable on Amsler grid -monitor -recommend AREDS2 MVI as directed and Amsler grid qday 2. Pseudophakia OU -Torie Eye -has monovision; OS is near -stable F/u 3-4 months OCT OU; OCTA OU David Kinney DO CC: Ramakrishna Hartley MD CC: PCP: Germán Felton MD documented in this encounter Nursing Notes * Citlaly Peña MED ASSIST - 06/06/2024 2:07 PM EDT Adair Ramos is a 69 year old year old female who presents for Inter nonexud AMD OU. Last Office Visit: 03/28/2024 (in office), Visit date not found (telemedicine) Patient currently states 3-4 month f/u; pt report horizontal line looks like an front desk monitor, and vertical lines are starting to do it as well she noticed one th drive over Are you diabetic? No Do you drive? yes OCT image(s) of both eyes acquired and filed/scanned into chart. documented in this encounter Plan of Treatment Upcoming Encounters Date Type Department Care Team (Late st Contact Info) Description 09/11/2024 11:00 AM EST Office Visit Ophthalmology, [facility] [address] [place] [address] David Kinney, [address] [place] [address] Scheduled Orders Name Type Priority Associated Diagnoses Orde r Schedule RETINA SCAN DIAGNOSTIC IMAGE, POSTERIOR Procedures Routine Nonexudative age-related macular degeneration, bilateral, intermediate dry stage Pseudophakia Ordered: 06/06/2024 Health Maintenance Due Date Last Done Comments Depression Screening 1966 Hepatitis C Screening 1972 DTap/Tdap Vaccines (1 - Tdap) 1973 Cologuard 1999 Fecal Occult Blood Test 1999 Sigmoidoscopy 1999 COVID-19 Vaccine ( season) 2024 Influenza Vaccine (FLU shot) (#1) 2024 06/11/2023, 06/05/2022, 05/15/2020, Additional history exists Mammogram 08/30/2024 08/30/2023, 03/10, 04/04/2020, Additional history exists Lipid Panel 01/12/2029 01/13/2024, 11/08, 01/01/2023, Additional history exists DXA Scan 04/24/2031 04/24/2024, 04/14/2022 Colonoscopy 01/27/2033 01/27/2023, 10/20/2018 Colorectal Cancer Screening 01/27/2033 Zoster Vaccines Completed 09/07/2019, 06/10, 01/18/2013 Pneumococcal Vaccine: 65+ Years Completed 06/18/2020, 06/05/2019 HPV (Gardasil) Vaccine Aged Out No lo nger eligible based on patient's age to complete this topic Hepatitis B Vaccine Aged Out No longe r eligible based on patient's age to complete this topic MENINGOCOCCAL (MENACTRA/MENVEO) Aged Out No longer eligible based on patient's age to complete this topic documented as of this encounter Medical Devices Not on filedocumented as of this encounter Visit Diagnoses Diagnosis Nonexudative age-related macular degeneration, bilateral, intermediate dry stage- Primary Pseudophakia Lens replaced by other means documented in this encounter Care Teams Emergency Vehicle Driver Relationship Specialty Start Date End Date Germán Felton MD [address] [place] [address] PCP - General Family Medicine 01/12/19 documented as of this encounter
--- OUTSIDE RECORDS SUMMARY | 2024-06-22 11:45 | External Medical Summary | Summary of Care ---
Author Name Unknown Organization [facility] Address [address] [facility] [address] Phone [phone] Care Team Providers Care Pulp Mill Operator Name Role Phone Germán Felton MD Primary Care Provider + Encounter Details Date Type Department Care Team (Late st Contact Info) Description 01/13/2024 Orders Only Gastroenterology, [facility] [address] [place] [address] Carl Fine MD [address] [place] [address] Diarrhea, unspecified type* Allergies Active Allergy Reactions Criticality Noted Date Comments Bupropion High 01/26/2023 Other Reaction(s): low sodium/requires monitoring while taking Hydrochlorothiazide Low 01/26/2023 Other Reaction(s): SEVERE HEADACHES , DIZZINESS documented as of this encounter (statuses as of 01/13/2024) Medications Medication Sig Dispensed Refills Start Date [...] a day. 60 Cap 1 02/14/2019 Active Additional Information Patient not taking.Reported on 12/20/2023 NATURAL SUPPLEMENTIndication s:369 plant base ( fish [...] morning and 1 Tablet before bedtime. Active buPROPion HCl ER (SR) 150 MG Oral Tablet Extended Release 12 Hour (Wellbutrin SR) Take 1 Tablet by mouth in the morning. In the morning.. 07/06/2023 Active Lisinopril 40 MG Oral Tablet Take [...] (Carboxymethylcellul ose Sodium) Instill into eye. Active documented as of this encounter (statuses as of 01/13/2024) Active Problems No known active problems documented as of this encounter (statuses as of 01/13/2024) Social History Tobacco Use Types Packs/Day Years Used Date Smoking Tobacco: Never Smokeless Tobacco: Never Alcohol Use Standard Drinks/Week Comments Yes 0 (1 standard drink = 0.6 oz pur e alcohol) occasional, wine Sex and Gender Information Value Date Recorded Sex Assigned at Not on file Gender Identity Not on file Sexual Orientation Not on file Job Start Date Occupation Industry Not on file Not on file Not on file documented as of this encounter Miscellaneous Notes * Addendum Note - Carl Fine MD - 01/13/2024 1:32 PM EDTAddended by: CARL FINE on: 01/13/2024 01:32 PM Modules accepted: Orders documented in this encounter Plan of Treatment Upcoming Encounters Date Type Department Care Team (Late st Contact Info) Description 03/28/2024 10:15 AM EDT Office Visit Ophthalmology, [facility] [address] [facility] [place] [address] David Kinney DO [address] [place] [address] Scheduled Orders Name Type Priority Associated Diagnoses Orde r Schedule LIPID PANEL WITH DIRECT LDL IF TG IS HIGH Lab Routine Diarrhea, unspecified type Expected: 01/13/2024, Expires: 01/12/2025 LIPID PANEL WITH DIRECT LDL IF TG IS HIGH Lab Routine Diarrhea, unspecified type Expected: 01/13/2024, Expires: 01/12/2025 Health Maintenance Due Date Last Done Comments Depression Screening 1966 Hepatitis C Screening 1972 DTaP,Tdap,and Td Vaccines (1 - Tdap) 1973 Cologuard 1999 Fecal Occult Blood Test 1999 Sigmoidoscopy 1999 COVID-19 Vaccine (1 - 2022- season) 2023 Mammogram 08/30/2024 08/30/2023, 03/10, 04/04/2020, Additional history exists Lipid Panel 11/30/2028 12/01/2023, 12/08, 10/08/2021, Additional history exists DXA Scan 04/14/2029 04/14/2022 Colonoscopy 01/27/2033 01/27/2023, 10/20/2018 Colorectal Cancer Screening 01/27/2033 Zoster Vaccines Completed 09/07/2019, 06/10, 01/18/2013 Pneumococcal Vaccine: 65+ Years Completed 06/18/2020, 06/05/2019 Influenza Vaccine (FLU shot) Completed 10/2022, 06/05/2022, 05/15/2020, Additional history exists GARDASIL-HPV IMMUNIZATION SERIES Aged Out No longer eligible based on patient's age to complete this topic Hepatitis B Aged Out No longer eligi ble based on patient's age to complete this topic MENINGOCOCCAL (MENACTRA/MENVEO) Aged Out No longer eligible based on patient's age to complete this topic documented as of this encounter Medical Devices Not on filedocumented as of this encounter Visit Diagnoses Diagnosis Diarrhea, unspecified type- Primary documented in this encounter Care Teams Pulp Mill Operator Relationship Specialty Start Date End Date Germán Felton MD [address] [place] [address] PCP - General Family Medicine 01/12/19 documented as of this encounter
--- OUTSIDE RECORDS SUMMARY | 2024-06-22 11:45 | External Medical Summary | Summary of Care ---
Author Name Unknown Organization [facility] Address [address] [facility] [address] Phone [phone] Care Team Providers Care Squeegee Operator Name Role Phone Germán Felton MD Primary Care Provider + Encounter Details Date Type Department Care Team (Late st Contact Info) Description 01/13/2024 Orders Only Gastroenterology, [facility] [address] [place] [address] Carl Fine MD [address] [place] [address] Diarrhea, unspecified type* Allergies Active Allergy Reactions [...] 03/28/2024 10:15 AM EDT Office Visit Ophthalmology, [facility] [address] [facility] [place] [address] David Kinney DO [address] [place] [address] Scheduled Orders Name Type Priority Associated Diagnoses [...] Primary documented in this encounter Care Teams Squeegee Operator Relationship Specialty Start Date End Date Germán Felton MD [address] [place] [address] PCP - General Family Medicine 01/12/19 documented as of this encounter
--- OUTSIDE RECORDS SUMMARY | 2024-06-22 11:45 | External Medical Summary | Summary of Care ---
Author Name Unknown Organization [facility] Address [address] [facility] [place] [address] Phone [phone] Care Team Providers Care Industrial Education Instructor Name Role Phone Germán Felton MD Primary Care Provider + Reason for Visit * Reason Comments Follow Up 3 month f/u; pt repo rts OD really dry and is putting drops in all the time, also reports notices more floaters when stressed Encounter Details Date Type Department Care Team (Late st Contact Info) Description 03/28/2024 10:15 AM EDT Office Visit Ophthalmology, [facility] [address] [place] [address] David Kinney, [address] [place] [address] Nonexudative age-related macular degeneration, bilateral, intermediate dry stage* Allergies Active Allergy Reactions Criticality Noted Date Comments Bupropion Medium 01/26/2023 Other Reaction(s): low sodium/requires monitoring while taking Hydrochlorothiazide Low 01/26/2023 Other Reaction(s): SEVERE HEADACHES , DIZZINESS documented as of this encounter (statuses as of 03/28/2024) Medications Medication Sig Dispensed Refills Start Date [...] day. 60 Cap 1 02/14/2019 Active NATURAL SUPPLEMENTIndicat ions:369 plant base ( fish oil) Take by mouth daily. Active polyethylene glycol 3350 (MIRALAX) 119 gram POWDIndications:t aking half capsule in the morning and in [...] bedtime. Active Theratears 0.25 % Ophthalmic Solution (Carboxymethylcel lulose Sodium) Instill into eye. Act fernando buPROPion HCl 100 MG Oral Tablet (Wellbutrin) Take 2 Tablets by mouth every morning. Active buPROPion HCl ER (SR) 150 MG Oral Tablet Extended Release 12 Hour (Wellbutrin SR) Take 1 Tablet by mouth in the morning. In the morning.. 07/06/2023 03/28/2024 Discontinued (Medication List Clean Up) documented as of this encounter (statuses as of 03/28/2024) Active Problems No known active problems documented as of this encounter (statuses as of 03/28/2024) Social History Tobacco Use Types Packs/Day Years [...] of this encounter Progress Notes * David Kinney, DO - 03/28/2024 10:15 AM EDT [facility] [place] Nursing Notes: Citlaly Peña, MED ASSIST 03/28/24 1026 Signed Adair Ramos is a 68 year old year old female who presents for non exud AMD OU. Last Office Visit: 12/20/2023 (in office), Visit date not found (telemedicine) Patient currently states 3 month f/u; pt reports OD really dry and is putting drops in all the time, also reports notices more floaters when stressed Are you diabetic? No Do you drive? yes OCT image(s) of both eyes acquired and filed/scanned into chart. Base Eye Exam Visual Acuity (Snellen - Linear) Right Left Dist sc 20/50 -1 20/50 Dist ph sc 20/40 -1 NI Tonometry (Tonopen, 10:24 AM) Right Left Pressure 17 22 Pupils Dark Shape React APD Right 4.5 Round Sluggish None Left 4.5 Round Sluggish None Visual Velarde (Counting fingers) Right Left Full Full Extraocular Movement Right Left Full, Ortho Full, Ortho Neuro/Psych Oriented x3: Yes Mood/Affect: Normal Dilation Both eyes: 0.5% Proparacaine @ 10:22 AM Dilation #2 Both eyes: 1.0% Mydriacyl, 2.5% Phenylephrine @ 10:24 AM Dilation #3 Both eyes: 1.0% Mydriacyl, 2.5% Phenylephrine @ 10:26 AM Dilation Comments Patient cautioned that effects of [...] nerve: 0.3, no edema/pallor/NVD macula: drusen, pig clumping vessels: wnl periphery: wnl, no RT/RD Dilated fundus exam OS: vitreous: clear optic nerve: 0.3, no edema/pallor/NVD macula: drusen, pig clumping vessels: wnl periphery: wnl, no RT/RD OCT Interpretation: OD: drusen, no irf, srf appearance--stable OS: drusen, no irf, srf appearance--stable OCTA Interpretation: 07/22/2023: OD: no cnv OS: no cnv A/P: 1. Intermediate Nonexudative Age-Related Macular Degeneration OU -no cnv -monitor -recommend AREDS2 MVI as directed and Amsler grid qday 2. Pseudophakia OU -Torie Eye -has monovision; OS is near -stable F/u 3-4 months OCT OU; OCTA OU David Kinney DO CC: Ramakrishna Hartley MD CC: PCP: Germán Felton MD documented in this encounter Nursing Notes * Citlaly Peña MED ASSIST - 03/28/2024 10:17 AM EDT Adair Ramos is a 68 year old year old female who presents for non exud AMD OU. Last Office Visit: 12/20/2023 (in office), Visit date not found (telemedicine) Patient currently states 3 month f/u; pt reports OD really dry and is putting drops in all the time, also reports notices more floaters when stressed Are you diabetic? No Do you drive? yes OCT image(s) of both eyes acquired and filed/scanned into chart. documented in this encounter Plan of Treatment Upcoming Encounters Date Type Department Care Team (Late st Contact Info) Description 06/28/2024 11:45 AM EST Office Visit Ophthalmology, [facility] [address] [place] [address] David Kinney, [address] [place] [address] Scheduled Orders Name Type Priority Associated Diagnoses Orde r Schedule RETINA SCAN DIAGNOSTIC IMAGE, POSTERIOR Procedures Routine Nonexudative age-related macular degeneration, bilateral, intermediate dry stage Ordered: 03/28/2024 Health Maintenance Due Date Last Done Comments Depression Screening 1966 Hepatitis C Screening 1972 DTaP,Tdap,and Td Vaccines (1 - Tdap) 1973 Cologuard 1999 Fecal Occult Blood Test 1999 Sigmoidoscopy 1999 COVID-19 Vaccine (2022- season) 2023 Influenza Vaccine (FLU shot) (#1) 2024 06/11/2023, 06/05/2022, 05/15/2020, Additional history exists Mammogram 08/30/2024 08/30/2023, 03/10, 04/04/2020, Additional history exists Lipid Panel 01/12/2029 01/13/2024, 11/08, 01/01/2023, Additional history exists DXA Scan 04/14/2029 04/14/2022 [...] macular degeneration, bilateral, intermediate dry stage- Primary documented in this encounter Care Teams Industrial Education Instructor Relationship Specialty Start Date End Date Germán Felton MD [address] [place] [address] PCP - General Family Medicine 01/12/19 documented as of this encounter
--- OUTSIDE RECORDS SUMMARY | 2024-06-22 11:45 | External Medical Summary | Summary of Care ---
Author Name Unknown Organization [facility] Address [address] [address] Phone [phone] Care Team Providers Care Home Hospice Rn Name Role Phone Germán Felton MD Primary Care Provider + Encounter Details Date Type Department Care Team (Late st Contact Info) Description 01/15/2024 Orders Only PATIENT PORTAL DO NOT DELETE THIS DEPT USED BY [facility] AG [id number] Allergies Active Allergy Reactions Criticality Noted Date Comments Bupropion High 01/26/2023 Other Reaction(s): low sodium/requires monitoring while taking Hydrochlorothiazide Low 01/26/2023 Other Reaction(s): SEVERE HEADACHES , DIZZINESS documented as of this encounter (statuses as of 01/15/2024) Medications Medication Sig Dispensed Refills Start Date [...] as of this encounter (statuses as of 01/15/2024) Active Problems No known active problems documented as of this encounter (statuses as of 01/15/2024) Social History Tobacco Use Types Packs/Day Years [...] on file documented as of this encounter Plan of Treatment Upcoming Encounters Date Type Department Care Team (Late st Contact Info) Description 03/28/2024 10:15 AM EDT Office Visit Ophthalmology, [facility] [address] [place] [address] [address], [address] [place] [id number] Health Maintenance Due Date Last Done Comments Depression Screening 1966 Hepatitis C Screening 1972 DTaP,Tdap,and Td Vaccines (1 - Tdap) 1973 Cologuard 1999 Fecal Occult Blood Test 1999 Sigmoidoscopy 1999 COVID-19 Vaccine ( season) 2023 Mammogram 08/30/2024 08/30/2023, 03/10, 04/04/2020, [...] Not on filedocumented as of this encounter Care Teams Home Hospice Rn Relationship Specialty Start Date End Date Germán Felton MD [address] [place] [address] [address] PCP - General Family Medicine 01/12/19 documented as of this encounter
--- NOTE | 2024-06-22 12:26 | Surgery Progress Note ---
Date of Service June 22, 2024 Assessment & Plan (1) SBO (small bowel obstruction): Plan: Her CT images and results were personally viewed and interpreted by myself She has no leukocytosis and vital signs stable Will try to treat her conservatively if possible If she has no improvement by tomorrow, could consider an oral contrasted study Will follow (2) Acute hyponatremia: Admission and Anticipated Discharge Date Admission Date: June 21, 2024 Subjective Patient seen and examined. Denies any flatus or BM. Still with some abdominal pain but improved since admission. She is afebrile. NG tube in place. Denies any nausea or vomiting at this time. Review of Systems 2 Constitutional: no fever and no chills Respiratory: no cough and no dyspnea Cardiovascular: no chest pain and no dyspnea on exertion Gastrointestinal: + abdominal pain; no nausea and no vomit ing Musculoskeletal: no back pain and no neck pain Neurologic: no loss of sensation and no headache(s) Psychiatric: no behavioral changes and no depression Hematologic / Lymphatic: no easy bleeding and no easy bruising Physical Exam Constitutional: WD/WN, vitals as above Respiratory: normal respiratory effort, lungs clear to auscultation Cardiovascular: RRR, no murmur, no edema Gastrointestinal (Abdomen): Inspection/Auscultation: abdomen normal to inspection and + abdomen distended (Mild) Percussion/Palpation: + abdomen tender (Bilateral lower quadrants) and abdomen soft; no guarding and no hernia Musculoskeletal: no cyanosis or clubbing, extremities motor strength 5/5 Skin: no rashes, warm and dry Psychiatric: A+Ox3, euthymic affect Results & Data Vital Signs (Past 12 Hours) Vital Signs Temp Pulse Pulse Resp BP Pulse Ox O2 Del Method 06/22/24 08:00 36.6 C 77 16 147/70 H 98 Room Air 06/22/24 07:18 87 06/22/24 03:45 37.4 C 83 20 131/75 96 Room Air 06/22/24 03:22 90 PG Care Time/CCT Total # of Minutes Spent Total Time Spent with Patient: Total time spent is greater than 50% in coordination of care (as documented) at patient's floor/unit and/or counseling patient: Coding Level of Care Code 74832 SUB INP/OBS CARE 25MIN Diagnoses SBO (small bowel obstruction) K56.609 Acute hyponatremia E87.1
--- NOTE | 2024-06-22 12:44 | Hospitalist Progress Note ---
Date of Service June 22, 2024 Assessment & Plan (1) Small bowel obstruction due to adhesions: (2) Chronic hyponatremia: (3) Anxiety and depression: Plan Patient with small bowel obstruction most likely due to adhesions Continue NG tube drainage Reviewed surgical recommendations. Continuing to treat conservatively, would consider Gastrografin follow-through as soon as tomorrow Patient n.p.o., continue IV fluids adjusted to LR with potassium Family at bedside, they report patient is chronically hyponatremic with a baseline sodium ranging between 127-130. Patient updated and family updated to the plan of care and agreeable Update: Informed NG tube partially removed, was advanced, follow-up KUB pending Admission and Anticipated Discharge Date Admission Date: June 21, 2024 Subjective Patient states still having some abdominal tenderness but overall improved after NG tube placement. No flatus or bowel movement Physical Exam Physical Exam: Constitutional: Alert, nontoxic HEENT: Mucous membranes moist., NG tube in place Lungs: Clear to auscultation, decreased, no wheezes rales or rhonchi CV: S1-S2, regular Abdomen: Hypoactive bowel sounds/absent bowel sounds, mild diffuse tenderness, no guarding, no rigidity, minimal distention Extremities: No significant edema Neuro: No focal deficits Psych: Cooperative, normal mood Results & Data Results & Data Vital Signs (Past 12 Hours) Vital Signs Temp Pulse Pulse Resp BP Pulse Ox O2 Del Method 06/22/24 08:00 36.6 C 77 16 147/70 H 98 Room Air 06/22/24 07:18 87 06/22/24 03:45 37.4 C 83 20 131/75 96 Room Air 06/22/24 03:22 90 Diagnostic Findings Reviewed imaging, laboratory and diagnostic studies. Pertinent findings as below. Sodium 129 Chloride 93 Potassium 3.9 WBCs 4.4 Hemoglobin 11.2 TSH 1.85 Urinalysis unremarkable
--- NOTE | 2024-06-22 13:16 | XRay Report ---
KUB CLINICAL HISTORY: Advanced NGT COMPARISON STUDY: CT of the abdomen and pelvis June 21, 2024. KUB performed earlier today. FINDINGS: The nasogastric tube has been advanced. The tip is within the proximal body of the stomach. Multiple loops of mildly dilated small bowel measuring up to 4.2 cm in caliber are unchanged. Contra st within the bladder is from recent contrast-enhanced CT. Postoperative findings within the spine ar e incidentally noted. IMPRESSION: 1. Interval advancement of the nasogastric tube which is well-positioned. 2. Persistent small bowel obstruction. ACT 112: Negative or not required by law. Electronically signed by: Gerry Mcdonnell M.D. 06/22/2024 1:15 PM
[2024-06-22] MEDS: ONDANSETRON INJ 2 MG/ML 2 ML VIAL IV PRN (16:16)
[2024-06-22] MEDS: ACETAMINOPHEN 1,000 MG/100 ML VIAL IV STA (16:16)
[2024-06-22] MEDS: MoRPHine SULFATE 2 MG/ML CARP IV PRN (18:09)
[2024-06-22] MEDS: ATORVASTATIN 20 MG TAB PO SCH (20:53)
[2024-06-22] MEDS: LORazepam 0.5 MG TAB PO SCH (20:53)
[2024-06-23 08:20] LABS: Hematocrit (blood only) 33.3 % (37.0-47.0); Hemoglobin 11.8 g/dl (12.0-16.0); Mean Corpuscular Hemoglobin 33.1 pg (25.0-34.0); Mean Corpuscular Hgb Conc 35.4 g/dL (32.0-36.0); Mean Corpuscular Volume 93.5 fL (80.0-100.0); Mean Platelet Volume 9.2 fL (9.4-12.4); Platelet Count 191 K/uL (130-400); RDW Coefficient of Variation 13.2 % (11.5-14.5); RDW Standard Deviation 45.7 fL (36.4-46.3); Red Blood Count 3.56 M/uL (4.20-5.40); White Blood Count 3.25 K/ul (4.8-10.8)
--- NOTE | 2024-06-23 08:25 | Surgery Progress Note ---
<Statement entered by Little Garcia, DO - 06/23/24 13:41> I have seen and examined this patient this am. He denies flatus to me this am but states he is not having any abdominal pain. Abdomen is soft with minimal distention. Date of Service June 23, 2024 Assessment & Plan (1) Small bowel obstruction due to adhesions: Plan: Patient with history of left inguinal hernia and exlap w/ lysis of adhesions, removal of suture for release of SBO here with concern for SBO Labs this AM are pending. Vitals show HRs 70-90s Pt feels similar to yesterday, ongoing intermittent cramping abdominal pain and some nausea present NGT in place with 300cc documented Small flatus, but also + burping. not ready for NGT to be removed Encouraged ambulation, may clamp NGT to walk halls We will follow closely, consider contrasted imaging study for further evaluation if no improvement over next day or so Dr. Garcia covering the wknd Admission and Anticipated Discharge Date Admission Date: June 21, 2024 Subjective Patient says she did not have a great night. Had some episodes of crampy abdominal pain requiring morphine and some dry heaves/nausea requiring zofran. She thinks she passed a very small amount of gas, but also endorses some burping. Throat is sore from NGT. Physical Exam Physical Exam: awake/alert Respiratory: normal respiratory effort Gastrointestinal (Abdomen): Inspection/Auscultation: + abdomen distended (mild ) Percussion/Palpation: + abdomen tender (bilateral lower abdomen, slightly worse on the R) and abdomen soft Results & Data Vital Signs (Past 12 Hours) Vital Signs Temp Pulse Resp BP BP Pulse Ox O2 Del Method 06/23/24 07:52 98.4 F 97 H 18 144/72 H 97 Room Air 06/23/24 00:20 97.8 F 87 14 146/74 H 96 Room Air PG Care Time/CCT Total # of Minutes Spent Total Time Spent with Patient: Total time spent is greater than 50% in coordination of care (as documented) at patient's floor/unit and/or counseling patient: Coding Level of Care Code 20059 SUB INP/OBS CARE 1/25MIN Diagnoses Small bowel obstruction due to adhesions K56.50
[2024-06-23 08:38] LABS: BUN Creatinine Ratio 34.4 (10-20); Calcium 8.1 mg/dl (8.6-10.3); Creatinine Clr Calc Pharmacy 75.3 ml/min; Magnesium 1.8 mg/dl (1.7-2.4); Potassium 3.9 mmol/L (3.5-5.1)
--- NOTE | 2024-06-23 14:40 | Hospitalist Progress Note ---
Date of Service June 23, 2024 Assessment & Plan (1) Small bowel obstruction due to adhesions: (2) Chronic hyponatremia: (3) Anxiety and depression: Plan Both clinically and objectively patient appears to have continued small bowel obstruction Continue NG tube Continue IV hydration Patient concerned about home medications, confirmed home meds and will reorder as appropriate. Patient reports she does not take the losartan and takes lisinopril at home and daughter at bedside Admission and Anticipated Discharge Date Admission Date: June 21, 2024 Subjective Patient still with a fair amount of abdominal pain. No significant flatus. Going for Gastrografin swallow this morning Physical Exam Physical Exam: Constitutional: Alert, ambulating HEENT: Mucous membranes moist. NG tube in place Lungs: Clear to auscultation, decreased, no wheezes rales or rhonchi CV: S1-S2, regular Abdomen: Soft, some mild diffuse tenderness, decreased bowel sounds Extremities: No significant edema Neuro: No focal deficits Psych: Cooperative, normal mood Results & Data Results & Data Vital Signs (Past 12 Hours) Vital Signs Temp Pulse Resp BP Pulse Ox O2 Del Method 06/23/24 07:52 36.9 C 97 H 18 144/72 H 97 Room Air Diagnostic Findings Reviewed imaging, laboratory and diagnostic studies. Pertinent findings as below. WBCs 3.2 Hemoglobin 0.8 Platelets 191 Sodium 131, improved Bicarb 20 Personally reviewed small bowel x-ray, appears all contrast is within the small bowel, small bowel still quite dilated, appears persistent small bowel obstruction, await formal radiology interpretation
[2024-06-23] MEDS: buPROPion SR 150 MG TABCR PO SCH (15:07)
--- NOTE | 2024-06-23 15:39 | Fluoroscopy Report ---
FL small bowel follow through CLINICAL HISTORY: 69 years-old Female with eval sbo, give contrast via ngt. TECHNIQUE: Oral barium was administered to the patient and serial radiographs of the abdomen were pe rformed. COMPARISON STUDY: KUB 06/22/2024, CT 06/21/2024 FLUOROSCOPY TIME: 0 minutes. 6 images were cemented. FINDINGS: Staff Air Tactical Officer radiograph of the abdomen demonstrates multiple dilated loops of air-filled small helga wel scattered throughout the abdomen compatible with persistent obstruction. Distal tip of enteric tu be projects over the stomach. Lumbar spinal fusion hardware. Oral contrast was administered through the patient's enteric tube. There is prompt opacification of t he gastric lumen and proximal small bowel. Several images were obtained at different time intervals u p to 5.5 hours. There is slow progression of the enteric contrast into the small bowel however does n ot reach the large bowel. IMPRESSION: Persistent small bowel obstruction without progression to the large bowel by 5.5 hours. Follow-up wit h serial KUB radiographs recommended with the next radiograph recommended to be completed within appr oximately 3 hours. ACT 112: Negative or not required by law. The above report was generated using voice recognition software. It may contain grammatical, syntax o r spelling errors. Electronically signed by: Jayson Osborn M.D. 06/23/2024 3:37 PM
[2024-06-23] MEDS: LACTATED RINGER'S 1,000 ML IV SCH (15:41)
--- NOTE | 2024-06-23 16:54 | Discharge Summary ---
Discharge Summary Date of Service June 23, 2024 Principal Dx & Hospital Course #1 = Principal Diagnosis (1) Small bowel obstruction due to adhesions: (2) Chronic hyponatremia: (3) Anxiety and depression: (4) Metabolic acidosis, increased anion gap: Plan Patient presented to the emergency room with increasing abdominal pain and subsequent nausea and vomiting. She has not had a bowel movement for couple days. Patient has a history of small bowel obstruction. In the emergency room imaging was consistent with a small bowel obstruction. Patient was admitted to hospital. NG tube was placed for decompression. Surgical consultation was obtained. She was given IV fluid hydration. Patient has a history of chronic hyponatremia. Per family her sodium levels chronically are between 127 and 130. This was at her baseline. Patient continued with some crampy abdominal pain. No additional vomiting with the NG tube placed. Patient underwent Gastrografin small bowel follow-through for small bowel obstruction protocol. No contrast proceeded into the large bowel. Due to the fact that she is had somewhat of a complicated past surgical history with previous small bowel obstructions family requested transfer to a higher level of care and assisted with finding an accepting physician at [facility]. Spoke with Dr. Gonzales at [facility] transfer center. He will coordinate transfer and accept the patient. Notes For Next Care Provider Continue ongoing care and evaluation for small bowel obstruction Medication Changes From Visit Only critical home medications were continued while in the hospital Admission HPI Per Admitting Provider History obtained from patient, family, and records. Medical history significant for hypertension, hyperlipidemia, chronic hyponatremia, SIADH as per records, history of seizures as per records, pituitary tumor as per records, anxiety/mood disorder. Last confinement 2020 under [facility] spine service for elective lumbar decompression surgery. Patient not feeding well since last week. Progressive achy abdominal pain, with nausea, vomiting symptoms. No bowel movement the last few days which is unusual for her. Denies headache, chest pain, SOB. Patient consulted at [facility] in [place], [place] yesterday. Symptoms attributed to viral illness. No x-rays done as per family. Patient brought to ER by family for worsening symptoms. NGT inserted for bowel obstruction. 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 Lungs: Clear to auscultation, decreased, no wheezes rales or rhonchi CV: S1-S2, regular Abdomen: Hypoactive to minimal bowel sounds, diffuse tenderness but no guarding, rigidity or rebound. No significant distention Extremities: No significant edema Neuro: No focal deficits Psych: Cooperative, mildly depressed Updated Medication List Medication Instructions Recorded Confirmed Type cholecalciferol (vitamin D3) 50 2,000 unit PO QAM 02/22/19 06/21/24 History mcg (2,000 unit) tablet (Vitamin D3) lorazepam 0.5 mg tablet (Ativan) 0.5 mg PO HS 02/28/19 06/21/24 History acetaminophen 500 mg tablet 1,000 mg PO Q4H PRN Pain 09/08/19 06/21/24 History (Tylenol Extra Strength) polyethylene glycol 3350 17 gram 17 g PO QAM PRN Constipation 06/04/20 06/21/24 History oral powder packet (Miralax) glucosamine sulf dipot 1 cap PO QAM 07/09/20 06/21/24 History chlr,msm,chond 550 mg-C 30 mg-sandra 1 mg capsule (Glucosamine Chondroitin) Bifidobacterium infantis 10.5 mg 10 mg PO QAM 08/26/20 06/21/24 History (10 million cell) chewable tablet (Align) biotin 5,000 mcg disintegrating 10,000 mcg PO QAM 08/26/20 06/21/24 History tablet atorvastatin 20 mg tablet 20 mg PO HS 01/26/23 06/21/24 History azelastine 137 mcg (0.1 %) nasal 1 spray intranasal BID PRN allergy 01/26/23 01/27/23 History spray relief bupropion HCl 150 mg tablet,12 hr 150 mg PO QAM 01/26/23 06/21/24 History sustained-release (Wellbutrin SR) buspirone 10 mg tablet 15 mg PO TID 01/26/23 06/21/24 History coQ10 (ubiquinol) 200 mg capsule 200 mg PO HS 01/26/23 06/21/24 History cyanocobalamin (vitamin B-12) 1,000 mcg PO QAM 01/26/23 06/21/24 History 1,000 mcg tablet lifitegrast 5 % eye drops in a 1 drp ophthalmic (eye) AMPM PRN 01/26/23 06/21/24 History dropperette (Xiidra) allergy relief loratadine 10 mg tablet (Claritin) 10 mg PO QAM PRN Allergic Symptoms 01/26/23 06/21/24 History magnesium glycinate 100 mg (as 100 mg PO QAM PRN Unknown 01/26/23 06/21/24 History glycinate) tablet vitamins A,C,K-tdpb-hbrmar 2,148 2 tab PO QAM 01/26/23 06/21/24 History mcg-113 mg-45 mg-17.4 mg tablet (PreserVision AREDS) lisinopril 40 mg tablet 40 mg PO DAILY 06/23/24 06/23/24 History Hospital Stay Data Consultations 06/21/24 19:29 Consult General Surgery Routine ED Decision to Admit Stat Diagnostic Imagining Performed 06/21/24 17:53 CT abd pelvis IV con only Stat 06/23/24 09:05 [place] small bowel follow through Urgent Reviewed imaging, laboratory and diagnostic studies. Pertinent findings as below. WBCs 3.2 Hemoglobin 9.8 Platelets of 191 Sodium 131 Potassium 3.9 Carbon dioxide 20 Anion gap 12 Magnesium 1.8 Small bowel follow-through shows no contrast in the large bowel at 5.5 hours. Pending Results Patient Have Any Pending Studies at Discharge: No Discharge Instructions Given to Patient (Per Discharging Provider) Continue your care and evaluation by surgery Total Time Total Time Spent Total Time Spent (In Minutes): 46
[2024-06-23] MEDS: ACETAMINOPHEN 1,000 MG/100 ML VIAL IV PRN (18:32)
--- NOTE | 2024-06-23 23:48 | XRay Report ---
Exam(s): XR KUB EXAM: XR Abdomen, 1 View CLINICAL HISTORY: Reason for exam: eval SBO, passage of contrast s/p SBFT. TECHNIQUE: Frontal supine view of the abdomen/pelvis. COMPARISON: No relevant prior studies available. FINDINGS: Gastrointestinal tract: There is moderate small bowel distention. There is contrast opacification of several loops of small bowel. No definite colonic opacification is noted. There is limited gaseous distention of the. Colon. The nasogastric tube terminates in the region of the stomach. Bones/joints: Unremarkable. No acute fracture. There is L4-S1 transpedicular fusion and posterior surgical decompression. IMPRESSION: Persistent moderate small bowel distention with opacification of several distended loops of small bowel. No definite colonic opacification is noted. Findings are consistent with history of small bowel obstruction. Electronically signed by: Donta Klein MD 06/23/24 23:47 PM
--- NOTE | 2024-06-24 06:25 | Surgery Progress Note ---
Date of Service June 24, 2024 Assessment & Plan (1) Small bowel obstruction due to adhesions: Plan: Patient here with SBO who has a surgical history of left inguinal hernia and exlap w/ lysis of adhesions, removal of suture for release of SBO. Vitals have remained stable Patient continues with ongoing nausea and abdominal cramping. NGT has remained in place with recorded 1100mL output in 24 hours. Patient did pass small amount of flatus however no return of bowel function. SBFT and repeat KUB yesterday demonstrate persistent SBO Due to patient's significant surgical history, her and her family have requested to be transferred to [facility] and she has been accepted by Dr. Gonzales. Patient is waiting for transport. Admission and Anticipated Discharge Date Admission Date: June 21, 2024 Supervising Physician Co-Signing Physician Notes I saw the patient this am. Today she states she did not pass any further flatus since she last did early yesterday. SBFT does not show contrast past the small bowel and patient will likely require exploration which the family will prefer at [facility]. Pt being transferred this am per her admitting medical team. Subjective Patient states she has continued to feel nauseous throughout the evening 1100mL recorded output from NGT in last 24 hours Patient had SBFT yesterday which demonstrated persistent SBO without progression and repeat KUB 3 hours later was unchaged. States she is still having abdominal cramping at times however during exam this morning pain currently well controlled Physical Exam Constitutional: WD/WN, vitals as above Respiratory: normal respiratory effort, lungs clear to auscultation Cardiovascular: RRR, no murmur, no edema Gastrointestinal (Abdomen): Abdomen soft, nondistended, +TTP over lower abdominal region more so over right mid/lower abdomen. Psychiatric: A+Ox3, euthymic affect Results & Data Vital Signs (Past 12 Hours) Vital Signs Temp Pulse Resp BP Pulse Ox O2 Del Method 06/23/24 21:26 37.3 C 94 H 16 105/63 95 Room Air Diagnostic Findings FL small bowel follow through CLINICAL HISTORY: 69 years-old Female with eval sbo, give contrast via ngt. TECHNIQUE: Oral barium was administered to the patient and serial radiographs of the abdomen were performed. COMPARISON STUDY: KUB 06/22/2024, CT 06/21/2024 FLUOROSCOPY TIME: 0 minutes. 6 images were cemented. FINDINGS: Monitor Technician radiograph of the abdomen demonstrates multiple dilated loops of air-filled small bowel scattered throughout the abdomen compatible with persistent obstruction. Distal tip of enteric tube projects over the stomach. Lumbar spinal fusion hardware. Oral contrast was administered through the patient's enteric tube. There is prompt opacification of the gastric lumen and proximal small bowel. Several images were obtained at different time intervals up to 5.5 hours. There is slow progression of the enteric contrast into the small bowel however does not reach the large bowel. IMPRESSION: Persistent small bowel obstruction without progression to the large bowel by 5.5 hours. Follow-up with serial KUB radiographs recommended with the next radiograph recommended to be completed within approximately 3 hours. EXAM: XR Abdomen, 1 View CLINICAL HISTORY: Reason for exam: eval SBO, passage of contrast s/p SBFT. TECHNIQUE: Frontal supine view of the abdomen/pelvis. COMPARISON: No relevant prior studies available. FINDINGS: Gastrointestinal tract: There is moderate small bowel distention. There is contrast opacification of several loops of small bowel. No definite colonic opacification is noted. There is limited gaseous distention of the. Colon. The nasogastric tube terminates in the region of the stomach. Bones/joints: Unremarkable. No acute fracture. There is L4-S1 transpedicular fusion and posterior surgical decompression. IMPRESSION: Persistent moderate small bowel distention with opacification of several distended loops of small bowel. No definite colonic opacification is noted. Findings are consistent with history of small bowel obstruction. PG Care Time/CCT Total # of Minutes Spent Total Time Spent with Patient: Total time spent is greater than 50% in coordination of care (as documented) at patient's floor/unit and/or counseling patient: Coding Level of Care Code 40731 SUB INP/OBS CARE 1/25MIN Medical Decision Making Straight Forward Diagnoses Small bowel obstruction due to adhesions K56.50
[2024-06-24 07:08] LABS: BUN Creatinine Ratio 40.4 (10-20); Calcium 8.7 mg/dl (8.6-10.3); Creatinine Clr Calc Pharmacy 80.6 ml/min; Potassium 3.6 mmol/L (3.5-5.1)
[2024-06-24 08:18] VITALS: RESP 18
--- NOTE | 2024-06-24 08:31 | XRay Report ---
EXAM: XR KUB/Abdomen 1 view CLINICAL HISTORY: EVAL SBO PASSAGE OF CONTRAST KAB WTW TECHNIQUE: X-ray images of the abdomen were obtained in supine positions. COMPARISON: 06/22/2024 FINDINGS: Again noted multiple dilated small bowel loops with maximum caliber measuring 4.5 cm in mid of the abdomen. Retained contrast from prior study is seen in rest of the small and large bowel. Partially visualized NG tube is seen with the distal tip is noted in the left upper quadrant, stomach bubble is not identified. There is an ill-defined lucency in the right and left upper quadrants, should be advised lateral decubitus views to rule out pneumoperitoneum. Should also ask recent surgical history. Again noted lumbar spine fixation orthopedic hardware in lower lumbar vertebrae with a few surgical gabrielle. Degenerative changes are seen in the visualized lumbar spine and bilateral hip joints. IMPRESSION: 1. Again noted multiple dilated small bowel loops with maximum caliber measuring 4.5 cm in mid of the abdomen. 2. Retained contrast from the prior study is seen in rest of the small and large bowel. 3. A partially visualized NG tube is seen with the distal tip is noted in the left upper quadrant, stomach bubble is not identified. 4. There is an ill-defined lucency in the right and left upper quadrants, would recommend lateral decubitus views to rule out pneumoperitoneum. Clinical correlation is advised. [facility]'s ER was called at at 7:24 PM [employer]OR[employer]IST, 06/24/2024, and nurse Mavis was informed about the presence of significant medical findings. Electronically signed by Leela Gaona 06-24-2024 08:31 AM
[2024-06-24] MEDS: lisinopril 40 MG TAB PO SCH (08:42)
[2024-06-24] MEDS: ACETAMINOPHEN 325 MG TAB PO PRN (08:46)
[2024-06-24 17:47] VITALS: BP 142/74; PULSE 106; TEMP 99.1; O2SAT 96
== END 2024-06-24 17:57 | disposition short-term general hospital (02) | DRG 389 ==
LOC: ED 17:22 → 2N 19:31 → 3N 06-23 00:09

== ENCOUNTER 2024-07-04 02:23 | Inpatient (IN) ==
--- NOTE | 2024-07-04 02:37 | Emergency Department Note ---
Impression & Plan SBO (small bowel obstruction), Acute abdominal pain ED Provider Note HISTORY OF PRESENT ILLNESS: Patient is a 69-year-old female presenting with generalized abdominal pain. Patient reports pain started acutely at midnight tonight. States the pain seems to wax and wane in intensity. Reports associated nausea and had a few episodes of vomiting prior to arrival in the emergency department. Patient has a history of small bowel obstructions, and was recently discharged from [facility] on 06/26/2024. Patient reports has been taking MiraLAX daily and having daily bowel movements since her discharge. Reports her last bowel movement was yesterday. She denies any fevers. Denies any chest pain or shortness of breath. She is tremulous and crying on examination. Patient has never had abdominal surgery before. ROS: as above PHYSICAL EXAM: Constitutional: Patient appears in no acute distress. HENT: Head: Normocephalic and atraumatic. Eyes: EOMI, PERRL Mouth/Throat: Mucous membranes moist. Neck: Trachea midline. Neck supple. Cardiovascular: Tachycardic with regular rhythm. No murmurs, rubs or gallops. Intact distal pulses. Pulmonary/Chest: No respiratory distress. Breath sounds clear and equal bilaterally. No wheezes or rales. Abdominal: Abdomen soft, no rebound or guarding. Diffuse TTP Musculoskeletal: No edema, tenderness or deformity noted. Skin: Warm and dry. No rash, erythema, pallor or cyanosis Psychiatric: Appropriate mood and affect for situation. Neurological: Alert and keenly responsive. CN II-XII grossly intact, moving all extremities equally and fully. MDM: - Vitals signs showed tachycardia. - History obtained via patient. History as above. - Chronic conditions affecting care: HTN; HLD; pituitary tumor; depression/anxiety - Differential diagnoses include, but are not limited to: Small bowel obstruction; ischemic colitis; volvulus - Order placed for continuous cardiac monitoring. At this time, monitor showed rate of 78 bpm with normal rhythm, per my interpretation. - External medical records reviewed. [facility] discharge summary dated 06/26/2024 was reviewed. Patient was admitted from 06/24 to 06/26/2024 for a presumed small bowel obstruction. She had been initially admitted to [facility] where she was found to have a small bowel obstruction. She had an NG tube placed and had improvement in her symptoms. She reported that she had previous small bowel obstructions for which she has had surgery. During her hospital course, she had a bowel movement and had improvement in symptoms. She tolerated diet without any issues and was discharged on 06/26/2024. - EKG interpreted by myself showed normal sinus rhythm. Rate 96 bpm. QT 334. No acute ischemic changes. Significant artifact at baseline. - Laboratory workup interpreted by myself showed slight leukocytosis (WBC 11.52); normal PT/INR; chronic hyponatremia (Na 130); normal lactate; elevated lipase (130) - Patient given 50 mcg IV fentanyl and 4 mg IV zofran for symptomatic management on arrival to ER. - Repeat EKG obtained at 02:53 secondary to artifact on initial EKG interpreted by myself showed normal sinus rhythm. Rate 77 bpm. QT 370. No acute ischemic changes. - CT abdomen/pelvis with IV contrast appears to show a small bowel obstruction, per my interpretation. Radiology notes mild to moderate small bowel obstruction with prominent dilatation and air-fluid leveling of the distal jejunum and ileal loops without a significant point of transition. There is also noted to have significant fecal matter in the colon loops and air trace to the rectum concerning for a potential paralytic or ileus rather than mechanical obstruction. - Discussion was had with caseworker protective services about patient's case and need for admission - Hospitalist, Dr. Durham, consulted for admission - [facility] ASSESSMENT AND PLAN: Diagnosis: small bowel obstruction; acute abdominal pain Plan: admit Past Med/Surg History Problem List (Updated 07/04/24 @ 04:44 by Doris Escalante MD) Acute abdominal pain (Acute) SBO (small bowel obstruction) (Acute) Metabolic acidosis, increased anion gap Small bowel obstruction due to adhesions Chronic hyponatremia Acute hyponatremia (Acute) Nausea & vomiting (Acute) Abdominal pain (Acute) SBO (small bowel obstruction) (Acute) Small bowel obstruction Encounter for pre-operative examination HTN (hypertension) Postoperative ileus Neurogenic claudication due to lumbar spinal stenosis Anxiety Hyponatremia History of seizure S/P spinal surgery HLD (hyperlipidemia) Medical History Arthritis Macular degeneration Hyperlipidemia Anxiety and depression Seizure Aug 30, 2020 > [facility] > felt caused by low sodium and taking Wellbutrin > saw neurology from [place] and was cleared per pt History of intestinal obstruction 2/2 tethered suture from umbilical hernia repair. Spondylisthesis Seasonal allergies HTN (hypertension) Spinal stenosis Surgical History Fusion of spine lumbar History of cataract surgery rt/left [place] teeth extracted History of colonoscopy S/P exploratory laparotomy (02/25/19) Exploratory laparotomy, lysis of adhesions, excision of suture, closure of enterotomy - Ke Phan MD 02/25/19 History of shoulder surgery LEFT ROTATOR CUFF History of hand surgery right/left History of lumpectomy breast lumpectomy x 3 (benign) Status post inguinal hernia repair H/O hernia repair Complicated by tethered suture causing bowel obstruction-OK NOW Family History Other No family history of adverse response to anesthesia Social History Smoking Status: Never smoker Second Hand Exposure: Yes (as a child); Do You Dip or Chew Tobacco: No; Hx Alcohol Use: Yes Alcohol type: hard liquor Alcohol type Comment: socially Alcohol Intake Frequency: 2-4 x/Month Hx Substance Use: No Preferred Language: [place] Communication Ability: Effective 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 Beliefs That Will Affect Care: None marital status: Current Living Situation: Spouse Feels Safe at Home: Yes Assistive Devices: None Allergies Allergies Allergy/AdvReac Type Severity Reaction Status Date / Time bupropion [From Wellbutrin] AdvReac Severe low Verified 01/26/23 07:50 sodium/requires monitoring while taking hydrochlorothiazide AdvReac Mild SEVERE Verified 01/26/23 07:49 HEADACHES , DIZZINESS Home Meds Home Medications Medication Instructions Recorded Confirmed cholecalciferol (vitamin D3) 50 2,000 unit PO QAM 02/22/19 06/21/24 mcg (2,000 unit) tablet (Vitamin D3) lorazepam 0.5 mg tablet (Ativan) 0.5 mg PO HS 02/28/19 06/21/24 acetaminophen 500 mg tablet 1,000 mg PO Q4H PRN Pain 09/08/19 06/21/24 (Tylenol Extra Strength) polyethylene glycol 3350 17 gram 17 g PO QAM PRN Constipation 06/04/20 06/21/24 oral powder packet (Miralax) glucosamine sulf dipot 1 cap PO QAM 07/09/20 06/21/24 chlr,msm,chond 550 mg-C 30 mg-sandra 1 mg capsule (Glucosamine Chondroitin) Bifidobacterium infantis 10.5 mg 10 mg PO QAM 08/26/20 06/21/24 (10 million cell) chewable tablet (Align) biotin 5,000 mcg disintegrating 10,000 mcg PO QAM 08/26/20 06/21/24 tablet atorvastatin 20 mg tablet 20 mg PO HS 01/26/23 06/21/24 azelastine 137 mcg (0.1 %) nasal 1 spray intranasal BID PRN allergy 01/26/23 01/27/23 spray relief bupropion HCl 150 mg tablet,12 hr 150 mg PO QAM 01/26/23 06/21/24 sustained-release (Wellbutrin SR) buspirone 10 mg tablet 15 mg PO TID 01/26/23 06/21/24 coQ10 (ubiquinol) 200 mg capsule 200 mg PO HS 01/26/23 06/21/24 cyanocobalamin (vitamin B-12) 1,000 mcg PO QAM 01/26/23 06/21/24 1,000 mcg tablet lifitegrast 5 % eye drops in a 1 drp ophthalmic (eye) AMPM PRN 01/26/23 06/21/24 dropperette (Xiidra) allergy relief loratadine 10 mg tablet (Claritin) 10 mg PO QAM PRN Allergic Symptoms 01/26/23 06/21/24 magnesium glycinate 100 mg (as 100 mg PO QAM PRN Unknown 01/26/23 06/21/24 glycinate) tablet vitamins A,C,P-eqok-wldvec 2,148 2 tab PO QAM 01/26/23 06/21/24 mcg-113 mg-45 mg-17.4 mg tablet (PreserVision AREDS) lisinopril 40 mg tablet 40 mg PO DAILY 06/23/24 06/23/24 Results & Data (ED) Vital Signs Vital Signs - 24 hr 07/04/24 02:27 07/04/24 02:28 07/04/24 02:43 Temperature 36.4 C L Temperature Source Temporal Artery Scan Pulse Rate 100 H Pulse Rate [Apical] 78 Pulse Rhythm Regular Pulse Rhythm [Apical] Regular Pulse Strength Normal Pulse Strength [Apical] Normal Respiratory Rate 18 24 Respiratory Effort / Characteristics Non-Labored Spontaneous Non-Labored Spontaneous Respiratory Depth Normal Normal Respiratory Pattern Regular Regular Blood Pressure [Right Arm] 137/83 Blood Pressure Mean [Right Arm] 101 Blood Pressure Position Sitting Blood Pressure Position [Right Arm] Lying Pulse Oximetry 95 100 Oxygen Delivery Method Room Air Room Air Room Air Sepsis Recent Fever Within 48 Hours No Sepsis New/Unexplained Change in Mental Status N/A Sepsis Action Taken by Nursing No Action Required 07/04/24 02:49 Temperature Temperature Source Pulse Rate 88 Pulse Rate [Apical] Pulse Rhythm Pulse Rhythm [Apical] Pulse Strength Pulse Strength [Apical] Respiratory Rate Respiratory Effort / Characteristics Respiratory Depth Respiratory Pattern Blood Pressure [Right Arm] Blood Pressure Mean [Right Arm] Blood Pressure Position Blood Pressure Position [Right Arm] Pulse Oximetry Oxygen Delivery Method Sepsis Recent Fever Within 48 Hours Sepsis New/Unexplained Change in Mental Status Sepsis Action Taken by Nursing Laboratory Data 07/04/24 02:57 07/04/24 02:57 Lab Results 07/04/24 Range/Units 02:57 WBC 11.52 H (4.8-10.8) K/ul RBC 3.76 L (4.20-5.40) M/uL Hgb 12.2 (12.0-16.0) g/dl Hct 34.4 L (37.0-47.0) % MCV 91.5 (80.0-100.0) fL MCH 32.4 (25.0-34.0) pg MCHC 35.5 (32.0-36.0) g/dL RDW Std Deviation 46.0 (36.4-46.3) fL RDW Coeff of Bj 13.5 (11.5-14.5) % Plt Count 326 (130-400) K/uL MPV 9.0 L (9.4-12.4) fL Immature Gran % (Auto) 0.4 % Neut % (Auto) 86.0 % Lymph % (Auto) 8.3 % [place] % (Auto) 4.7 % Eos % (Auto) 0.2 % Baso % (Auto) 0.4 % Neut # (Auto) 9.90 H (1.40-6.50) K/uL Lymph # (Auto) 0.96 L (1.20-3.40) K/uL Assumption # (Auto) 0.54 (0.11-0.59) K/uL Eos # (Auto) 0.02 (0.00-0.50) K/uL Baso # (Auto) 0.05 (0.00-0.20) K/uL Immature Gran # (Auto) 0.05 (0.01-0.20) K/uL PT 10.0 (9.0-12.0) Seconds INR 0.9 (0.9-1.1) Sodium 130 L (136-145) mmol/L Potassium 4.2 (3.5-5.1) mmol/L Chloride 100 (98-107) mmol/L Carbon Dioxide 20 L (21-32) mmol/L Anion Gap 10 (3-11) BUN 19 (6-23) mg/dl Creatinine 0.74 (0.6-1.2) mg/dl Est Cr Clr Drug Dosing 60.1 ml/min eGFR 86.98 BUN/Creatinine Ratio 25.7 H (10-20) Glucose 134 H (70-99(Fasting)) mg/dl Lactate 1.7 (0.4-2.0) mmol/L Calcium 9.3 (8.6-10.3) mg/dl Total Bilirubin 0.5 (0.2-1.0) mg/dl AST 21 (13-39) U/L ALT 21 (7-52) U/L Alkaline Phosphatase 56 (34-104) U/L Troponin I High Sens 4.1 (0-14) pg/ml Total Protein 6.4 (6.0-8.3) gm/dl Albumin 4.0 (3.4-5.0) gm/dl Globulin 2.4 L (2.5-4.0) gm/dl Albumin/Globulin Ratio 1.7 (0.9-2) Lipase 130 H (11-82) U/L Administered Medications Discontinued Medications Fentanyl Citrate (Fentanyl Citrate Pf 100 Mcg/2 Ml Vial) 50 mcg IV NOW STA Stop: 07/04/24 02:43 Last Admin: 07/04/24 02:48 Dose: 50 mcg Documented By: FRANCISCO Ioversol (Optiray 320 100ml) 100 ml IV ONCE ONE Stop: 07/04/24 03:43 Last Admin: 07/04/24 03:42 Dose: 93 ml Documented By: ANASTASIIA Ondansetron HCl (Ondansetron Inj 2 Mg/Ml 2 Ml Vial) 4 mg IV NOW STA Stop: 07/04/24 02:43 Last Admin: 07/04/24 02:48 Dose: 4 mg Documented By: SILKEW Imaging Data Radiologist's Impression: Abdomen/Pelvis CT 07/04/24 03:09 EXAM: CT abd pelvis IV con only CLINICAL HISTORY: N/V WITH HX OF SBO, 93 ML OPTIRAY 320 TECHNIQUE: CT of the abdomen and pelvis was performed with contrast (93 ML OPTIRAY 320), with the following protocol: axial images with, reconstructed coronal and sagittal images. One of the following dose reduction techniques was utilized for this exam: Automated exposure control, adjustment of the mA and/or kV according to patient size, and use of iterative reconstruction. COMPARISON: Comparison is made with 06/24/2024 cr and 06/21/2024 ct. FINDINGS: Abdomen: Liver: Normal in size, shape, and density. There is a 7 mm cyst in segment 8 of the liver. No masses were identified. Hepatic vasculature and biliary ducts are unremarkable. Gallbladder and Biliary System: The gallbladder is normal in size and shape. No wall thickening, pericholecystic fluid, or gallstones were identified. The common bile duct is normal in caliber without dilation. Pancreas: Pancreatic head, body, and tail are visualized and appear normal in size and density. No pancreatic masses or calcifications were noted. The pancreatic duct is not dilated. Spleen: Normal in size, shape, and density. No splenic lesions or masses were identified. Kidneys and Adrenal Glands: Both kidneys are normal in size, shape, and position. Cortical thickness is within normal limits. No renal calculi or hydronephrosis. Adrenal glands are unremarkable with no evidence of masses or hyperplasia. Pelvis: Urinary Bladder: Normal in contour and wall thickness. No intraluminal lesions were identified. Uterus: Normal in size and contour. No masses or abnormal thickening. Ovaries: Not well visualized but no gross abnormalities were noted. Vagina: Normal in contour and wall thickness. Cervix: No evidence of mass or abnormal thickening. Peritoneal and Retroperitoneal Structures: There are mild ascites. No lymphadenopathy was noted. Bowel: The colon loops are normal in calibration with fecal loading. Prominent dilatation with air-fluid leveling of the distal jejunal and ileal loops was noted. The proximal jejunal loops are normal in caliber. No significant wall thickening. No sign of appendicitis. Bones and Soft Tissues: Mild levoscoliosis noted. L4-S1 posterior fixator rods and screws noted. There are bony defects of the posterior elements of the L4 and L5 vertebrae. L4-L5 disc spacer noted. Decreased heights of the L3-L4 and L5-S1 discs with bulgings were noted. There are osteophytes with facet joints hypertrophies of the lumbar spine. Pelvic bones and soft tissues are unremarkable. No fractures or abnormal masses were identified. IMPRESSION: 1. Prominent dilatation and air-fluid leveling of the distal jejunal and ileal loops without a significant point of transition. This finding is suggestive of mild to moderate small bowel obstruction. On the other hand, there is fecal loading of the colon loops and air traced up to the rectum, thus these findings might be secondary to paralytic/brit ileus rather than mechanical obstruction. Please correlate clinically. 2. Mild ascites. 3. Other findings are in the report. 4. When compared to prior examination: The ascites show interval regression. Previously the small bowel dilatation was also evident on the proximal jejunal loops, whereas now they are in normal calibration. Fecal loading of the colon loops is more prominent at this time. Other findings are similar. Electronically signed by Edward Molina 07-04-2024 04:38 AM Discharge Plan Visit Data Chief Complaint: Constipation Stated Complaint: ABD PAIN, CONSTIPATION? ED Provider: Doris Escalante Discharge Problem: SBO (small bowel obstruction), Acute abdominal pain Forms Stand Alone Forms: My [facility] Prescriptions Prescriptions: No Action cholecalciferol (vitamin D3) [Vitamin D3] 2,000 unit Tablet 2,000 unit PO QAM acetaminophen [Tylenol Extra Strength] 500 mg Tablet 1,000 mg PO Q4H PRN (Reason: Pain) polyethylene glycol 3350 [Miralax] 17 gram Powder In Packet 17 g PO QAM PRN (Reason: Constipation) biotin 5,000 mcg Tablet,Disintegrating 10,000 mcg PO QAM Align 10.5 mg (10 million cell) Tablet,Chewable 10 mg PO QAM lorazepam [Ativan] 0.5 mg Tablet 0.5 mg PO HS Glucosamine Chondroitin 550-30-1 mg Capsule 1 cap PO QAM bupropion HCl [Wellbutrin SR] 150 mg Tablet Sustained-Release 12 Hr 150 mg PO QAM atorvastatin 20 mg Tablet 20 mg PO HS cyanocobalamin (vitamin B-12) 1,000 mcg Tablet 1,000 mcg PO QAM buspirone 10 mg Tablet 15 mg PO TID magnesium glycinate 100 mg Tablet 100 mg PO QAM PRN (Reason: Unknown) coQ10 (ubiquinol) 200 mg Capsule 200 mg PO HS PreserVision AREDS 2,148 mcg-113 mg-45 mg-17.4mg Tablet 2 tab PO QAM Rx Instructions: administer with AM and PM meals azelastine 137 mcg (0.1 %) Aerosol,Cohagen 1 spray INTRANASAL BID PRN (Reason: allergy relief) Rx Instructions: administer into each nostril loratadine [Claritin] 10 mg Tablet 10 mg PO QAM PRN (Reason: Allergic Symptoms) Xiidra 5 % Dropperette 1 drp OPHTHALMIC (EYE) AMPM PRN (Reason: allergy relief) Rx Instructions: administer approximately 12 hours apart lisinopril 40 mg Tablet 40 mg PO DAILY Referrals Referrals: Germán Felton M.D. [Primary Care Provider] -
[2024-07-04] MEDS: fentaNYL citrate PF 100 MCG/2 ML VIAL IV STA (02:48)
[2024-07-04] MEDS: ONDANSETRON INJ 2 MG/ML 2 ML VIAL IV STA (02:48)
[2024-07-04 03:17] LABS: Basophils # (auto) 0.05 K/uL (0.00-0.20); Basophils % (auto) 0.4 %; Eosinophils # (auto) 0.02 K/uL (0.00-0.50); Eosinophils % (auto) 0.2 %; Hematocrit (blood only) 34.4 % (37.0-47.0); Hemoglobin 12.2 g/dl (12.0-16.0); Immature Granulocytes # (auto) 0.05 K/uL (0.01-0.20); Immature Granulocytes % (auto) 0.4 %; Lymphocytes # (auto) 0.96 K/uL (1.20-3.40); Lymphocytes % (auto) 8.3 %; Mean Corpuscular Hemoglobin 32.4 pg (25.0-34.0); Mean Corpuscular Hgb Conc 35.5 g/dL (32.0-36.0); Mean Corpuscular Volume 91.5 fL (80.0-100.0); Monocytes # (auto) 0.54 K/uL (0.11-0.59); Monocytes % (auto) 4.7 %; Platelet Count 326 K/uL (130-400); RDW Coefficient of Variation 13.5 % (11.5-14.5); Red Blood Count 3.76 M/uL (4.20-5.40); White Blood Count 11.52 K/ul (4.8-10.8)
[2024-07-04 03:26] LABS: Albumin Globulin Ratio 1.7 (0.9-2); BUN Creatinine Ratio 25.7 (10-20); Bilirubin,Total 0.5 mg/dl (0.2-1.0); Calcium 9.3 mg/dl (8.6-10.3); Creatinine Clr Calc Pharmacy 60.1 ml/min; Globulin 2.4 gm/dl (2.5-4.0); Potassium 4.2 mmol/L (3.5-5.1); Total Protein 6.4 gm/dl (6.0-8.3)
[2024-07-04 03:32] LABS: Troponin I High Sensitivity 4.1 pg/ml (0-14)
[2024-07-04 03:36] LABS: INR 0.9 (0.9-1.1)
[2024-07-04] MEDS: OPTIRAY 320 100ml IV ONE (03:42)
--- NOTE | 2024-07-04 04:38 | CT Scan Report ---
EXAM: CT abd pelvis IV con only CLINICAL HISTORY: N/V WITH HX OF SBO, 93 ML OPTIRAY 320 TECHNIQUE: CT of the abdomen and pelvis was performed with contrast (93 ML OPTIRAY 320), with the following protocol: axial images with, reconstructed coronal and sagittal images. One of the following dose reduction techniques was utilized for this exam: Automated exposure control, adjustment of the mA and/or kV according to patient size, and use of iterative reconstruction. COMPARISON: Comparison is made with 06/24/2024 cr and 06/21/2024 ct. FINDINGS: Abdomen: Liver: Normal in size, shape, and density. There is a 7 mm cyst in segment 8 of the liver. No masses were identified. Hepatic vasculature and biliary ducts are unremarkable. Gallbladder and Biliary System: The gallbladder is normal in size and shape. No wall thickening, pericholecystic fluid, or gallstones were identified. The common bile duct is normal in caliber without dilation. Pancreas: Pancreatic head, body, and tail are visualized and appear normal in size and density. No pancreatic masses or calcifications were noted. The pancreatic duct is not dilated. Spleen: Normal in size, shape, and density. No splenic lesions or masses were identified. Kidneys and Adrenal Glands: Both kidneys are normal in size, shape, and position. Cortical thickness is within normal limits. No renal calculi or hydronephrosis. Adrenal glands are unremarkable with no evidence of masses or hyperplasia. Pelvis: Urinary Bladder: Normal in contour and wall thickness. No intraluminal lesions were identified. Uterus: Normal in size and contour. No masses or abnormal thickening. Ovaries: Not well visualized but no gross abnormalities were noted. Vagina: Normal in contour and wall thickness. Cervix: No evidence of mass or abnormal thickening. Peritoneal and Retroperitoneal Structures: There are mild ascites. No lymphadenopathy was noted. Bowel: The colon loops are normal in calibration with fecal loading. Prominent dilatation with air-fluid leveling of the distal jejunal and ileal loops was noted. The proximal jejunal loops are normal in caliber. No significant wall thickening. No sign of appendicitis. Bones and Soft Tissues: Mild levoscoliosis noted. L4-S1 posterior fixator rods and screws noted. There are bony defects of the posterior elements of the L4 and L5 vertebrae. L4-L5 disc spacer noted. Decreased heights of the L3-L4 and L5-S1 discs with bulgings were noted. There are osteophytes with facet joints hypertrophies of the lumbar spine. Pelvic bones and soft tissues are unremarkable. No fractures or abnormal masses were identified. IMPRESSION: 1. Prominent dilatation and air-fluid leveling of the distal jejunal and ileal loops without a significant point of transition. This finding is suggestive of mild to moderate small bowel obstruction. On the other hand, there is fecal loading of the colon loops and air traced up to the rectum, thus these findings might be secondary to paralytic/brit ileus rather than mechanical obstruction. Please correlate clinically. 2. Mild ascites. 3. Other findings are in the report. 4. When compared to prior examination: The ascites show interval regression. Previously the small bowel dilatation was also evident on the proximal jejunal loops, whereas now they are in normal calibration. Fecal loading of the colon loops is more prominent at this time. Other findings are similar. Electronically signed by Edward Molina 07-04-2024 04:38 AM
[2024-07-04 05:19] LABS: Appearance Urine Clear (Clear); Bilirubin Urine Negative (Negative); Blood Urine Negative (Negative); Color Urine Yellow; Glucose Urine UA Negative (Negative); Ketones Urine Trace (Negative); Leukocyte Esterase Urine Negative (Negative); Nitrite Urine Negative (Negative); Protein Urine Negative (Negative); Specific Gravity Urine > 1.045 (1.000-1.030); Urobilinogen Urine Negative (Negative); pH Urine 8.5 (4.5-7.5)
--- NOTE | 2024-07-04 07:57 | History & Physical Report ---
Date of Service July 04, 2024 Assessment & Plan (1) SBO (small bowel obstruction): Plan: 69-year-old female with past medical history significant for hypertension, hyperlipidemia, chronic hyponatremia SIADH per records, history of seizures per records, pituitary tumor per records anxiety/mood disorder, history of microscopic colitis presents with abdominal pain and nausea and found to have small bowel obstruction. Patient was recently in the hospital for small bowel obstruction at the time NG tube was placed. Patient underwent Gastrografin small bowel follow-through for small bowel obstruction protocol. No contrast proceeded into the large bowel. Because of previous complicated surgical history family request transfer to higher level level of care and was transferred to [facility]. She was transferred to [place] on 06/24/2024. At [place] she had bowel movements and tolerated diet. And patient was discharged on 06/26/2024. Yesterday morning patient had normal bowel movement. In the evening again patient started feeling nauseous and severe abdominal pain. Because of significant severe pain abdominal pain brought her back to the hospital today. En route she vomited. With pain medications pain is somewhat improved. Currently denies any headache. No runny nose or sore throat. No cough. No chest pain or shortness of breath. Micturating okay. Hemodynamics are okay. As per 5 to 6 years ago patient had inguinal surgery. Few days after surgery patient developed abdominal pain which required multiple ER and hospital admissions without finding the cause of the symptoms as they wear coming and going. Finally after 24 days of surgery as patient was still having symptoms it was decided to take her back to the OR. It was found out that one of the sutures was abnormally placed on the intestine which was causing the trouble. And at the time she stayed in the hospital for 13 days. After that she did okay except for IBS symptoms until last admission with small bowel obstruction. Small bowel obstruction Second episode N.p.o. except meds IV fluids IV antiemetics as needed Pain control Lactate okay If worsening will place NG tube Surgery consult in a.m. Mild ascites on CAT scan Needs follow-up Constipation CAT scan At home on MiraLAX daily History of hyponatremia Chronic hyponatremia Sodium 130 Will follow labs Hypertension On lisinopril and amlodipine IV hydralazine as needed Hyperlipidemia On statin Anxiety/mood disorder On buspirone and Ativan as needed On Wellbutrin History of microscopic colitis Follows with GI DVT prophylaxis SCDs and heparin subcu Disposition Medical floor Full code. History of Present Illness Chief Complaint: Small bowel obstruction Primary Care Provider: Germán Felton 69-year-old female with past medical history significant for hypertension, hyperlipidemia, chronic hyponatremia SIADH per records, history of seizures per records, pituitary tumor per records anxiety/mood disorder, history of microscopic colitis presents with abdominal pain and nausea and found to have small bowel obstruction. Patient was recently in the hospital for small bowel obstruction at the time NG tube was placed. Patient underwent Gastrografin small bowel follow-through for small bowel obstruction protocol. No contrast proceeded into the large bowel. Because of previous complicated surgical history family request transfer to higher level level of care and was transferred to [facility]. She was transferred to [place] on 06/24/2024. At [place] she had bowel movements and tolerated diet. And patient was discharged on 06/26/2024. Yesterday morning patient had normal bowel movement. In the evening again patient started feeling nauseous and severe abdominal pain. Because of significant severe pain abdominal pain brought her back to the hospital today. En route she vomited. With pain medications pain is somewhat improved. Currently denies any headache. No runny nose or sore throat. No cough. No chest pain or shortness of breath. Micturating okay. Hemodynamics are okay. As per 5 to 6 years ago patient had inguinal surgery. Few days after surgery patient developed abdominal pain which required multiple ER and hospital admissions without finding the cause of the symptoms as they wear coming and going. Finally after 24 days of surgery as patient was still having symptoms it was decided to take her back to the OR. It was found out that one of the sutures was abnormally placed on the intestine which was causing the trouble. And at the time she stayed in the hospital for 13 days. After that she did okay except for IBS symptoms until last admission with small bowel obstruction Past medical history. As mentioned above. Past surgical history. Cataract surgery bilateral complex. Colonoscopy. EGD. Injection of lumbosacral spine. Hand surgery. Shoulder surgery. Lumpectomy. Abdominal surgery. Allergies Allergy/AdvReac Type Severity Reaction Status Date / Time bupropion [From Wellbutrin] AdvReac Severe low Verified 01/26/23 07:50 sodium/requires monitoring while taking hydrochlorothiazide AdvReac Mild SEVERE Verified 01/26/23 07:49 HEADACHES , DIZZINESS Home Medications Medication Instructions Recorded Confirmed Type Bifidobacterium infantis 10.5 mg 10 mg PO DAILY 07/04/24 07/04/24 History (10 million cell) chewable tablet (Align) amlodipine 5 mg tablet 5 mg PO DAILY 07/04/24 07/04/24 History atorvastatin 20 mg tablet 20 mg PO DAILY 07/04/24 07/04/24 History azelastine 137 mcg (0.1 %) nasal 1 spray intranasal BID PRN Allergy 07/04/24 07/04/24 History spray Symptoms bupropion HCl 150 mg tablet,12 hr 150 mg PO QAM 07/04/24 07/04/24 History sustained-release buspirone 10 mg tablet 10 mg PO TID 07/04/24 07/04/24 History cholecalciferol (vitamin D3) 25 25 mcg PO DAILY 07/04/24 07/04/24 History mcg (1,000 unit) tablet (Vitamin D3) coenzyme Q10 100 mg capsule 200 mg PO DAILY 07/04/24 07/04/24 History (CoQ-10) cyanocobalamin (vitamin B-12) 1,000 mcg PO DAILY 07/04/24 07/04/24 History 1,000 mcg tablet cyclosporine 0.05 % eye drops in a 1 drp ophthalmic (eye) Q12H 07/04/24 07/04/24 History dropperette (Restasis) glucosamine sulf dipot 1 cap PO DAILY 07/04/24 07/04/24 History chlr,msm,chond 550 mg-C 30 mg-sandra 1 mg capsule (Glucosamine Chondroitin) lisinopril 40 mg tablet 40 mg PO DAILY 07/04/24 07/04/24 History lorazepam 0.5 mg tablet (Ativan) 0.5 mg PO HS PRN Anxiety 07/04/24 07/04/24 History omega 1-sac-ffo-fish oil 1,000 mg 1 cap PO DAILY 07/04/24 07/04/24 History (120 mg-180 mg) capsule (Fish Oil) polyethylene glycol 3350 17 gram 17 g PO DAILY 07/04/24 07/04/24 History oral powder packet (Miralax) vitamins A,C,V-huzk-vgcbqx 2,148 1 tab PO BID 07/04/24 07/04/24 History mcg-113 mg-45 mg-17.4 mg tablet (PreserVision AREDS) Past Med/Surg History Problem List (Updated 07/04/24 @ 04:44 by Doris Escalante MD) Acute abdominal pain (Acute) SBO (small bowel obstruction) (Acute) Metabolic acidosis, increased anion gap Small bowel obstruction due to adhesions Chronic hyponatremia Acute hyponatremia (Acute) Nausea & vomiting (Acute) Abdominal pain (Acute) SBO (small bowel obstruction) (Acute) Small bowel obstruction Encounter for pre-operative examination HTN (hypertension) Postoperative ileus Neurogenic claudication due to lumbar spinal stenosis Anxiety Hyponatremia History of seizure S/P spinal surgery HLD (hyperlipidemia) Medical History Arthritis Macular degeneration Hyperlipidemia Anxiety and depression Seizure Aug 30, 2020 > [facility] > felt caused by low sodium and taking Wellbutrin > saw neurology from [place] and was cleared per pt History of intestinal obstruction 2/2 tethered suture from umbilical hernia repair. Spondylisthesis Seasonal allergies HTN (hypertension) Spinal stenosis Surgical History Fusion of spine lumbar History of cataract surgery rt/left [place] teeth extracted History of colonoscopy S/P exploratory laparotomy (02/25/19) Exploratory laparotomy, lysis of adhesions, excision of suture, closure of enterotomy - Ke Phan MD 02/25/19 History of shoulder surgery LEFT ROTATOR CUFF History of hand surgery right/left History of lumpectomy breast lumpectomy x 3 (benign) Status post inguinal hernia repair H/O hernia repair Complicated by tethered suture causing bowel obstruction-OK NOW Family History Other No family history of adverse response to anesthesia Social History Smoking Status: Never smoker Second Hand Exposure: Yes (as a child); Do You Dip or Chew Tobacco: No; Hx Alcohol Use: Yes Alcohol type: hard liquor Alcohol type Comment: socially Alcohol Intake Frequency: 2-4 x/Month Hx Substance Use: No Preferred Language: Peruvian Communication Ability: Effective Mathematics Faculty Member Required: No Beliefs That Will Affect Care: None marital status: Current Living Situation: Spouse Feels Safe at Home: Yes Assistive Devices: None Review of Systems Review of Systems: All systems reviewed & are unremarkable except as noted in HPI & below Physical Exam Physical Exam: General- Not in distress Head- atraumatic Eyes- PERRL. ENT- oropharynx clear Neck- supple, no JVD. Lungs- clear to auscultation no wheezing or crackles Heart- regular rate and rhythm; no murmur, no gallop. Abdomen- sluggish bowel sounds, soft, nontender, no distension Extremities- mild pretibial edema, no erythema seen. Neuro- alert, oriented PERRL, no facial palsy; no dysarthria; moves extremities. Results & Data Results & Data Vital Signs (Past 12 Hours) Vital Signs Temp Pulse Pulse Resp BP BP Pulse Ox 07/04/24 05:29 81 23 124/74 97 07/04/24 04:50 83 23 107/70 97 07/04/24 04:33 86 16 138/78 97 07/04/24 04:00 73 16 120/60 98 07/04/24 02:49 88 07/04/24 02:43 78 24 137/83 100 07/04/24 02:28 36.4 C L 100 H 18 95 07/04/24 02:27 O2 Del Method 07/04/24 05:29 07/04/24 04:50 07/04/24 04:33 07/04/24 04:00 Room Air 07/04/24 02:49 07/04/24 02:43 Room Air 07/04/24 02:28 Room Air 07/04/24 02:27 Room Air Diagnostic Findings Laboratory Results WBC 11.52 K/ul (4.8-10.8) H 07/04/24 02:57 RBC 3.76 M/uL (4.20-5.40) L 07/04/24 02:57 Hgb 12.2 g/dl (12.0-16.0) 07/04/24 02:57 Hct 34.4 % (37.0-47.0) L 07/04/24 02:57 MCV 91.5 fL (80.0-100.0) 07/04/24 02:57 MCH 32.4 pg (25.0-34.0) 07/04/24 02:57 MCHC 35.5 g/dL (32.0-36.0) 07/04/24 02:57 RDW Std Deviation 46.0 fL (36.4-46.3) 07/04/24 02:57 RDW Coeff of Bj 13.5 % (11.5-14.5) 07/04/24 02:57 Plt Count 326 K/uL (130-400) 07/04/24 02:57 MPV 9.0 fL (9.4-12.4) L 07/04/24 02:57 Immature Gran % (Auto) 0.4 % 07/04/24 02:57 Neut % (Auto) 86.0 % 07/04/24 02:57 Lymph % (Auto) 8.3 % 07/04/24 02:57 Kendall % (Auto) 4.7 % 07/04/24 02:57 Eos % (Auto) 0.2 % 07/04/24 02:57 Baso % (Auto) 0.4 % 07/04/24 02:57 Neut # (Auto) 9.90 K/uL (1.40-6.50) H 07/04/24 02:57 Lymph # (Auto) 0.96 K/uL (1.20-3.40) L 07/04/24 02:57 Kendall # (Auto) 0.54 K/uL (0.11-0.59) 07/04/24 02:57 Eos # (Auto) 0.02 K/uL (0.00-0.50) 07/04/24 02:57 Baso # (Auto) 0.05 K/uL (0.00-0.20) 07/04/24 02:57 Immature Gran # (Auto) 0.05 K/uL (0.01-0.20) 07/04/24 02:57 PT 10.0 Seconds (9.0-12.0) 07/04/24 02:57 INR 0.9 (0.9-1.1) 07/04/24 02:57 Sodium 130 mmol/L (136-145) L 07/04/24 02:57 Potassium 4.2 mmol/L (3.5-5.1) 07/04/24 02:57 Chloride 100 mmol/L (98-107) 07/04/24 02:57 Carbon Dioxide 20 mmol/L (21-32) L 07/04/24 02:57 Anion Gap 10 (3-11) 07/04/24 02:57 BUN 19 mg/dl (6-23) 07/04/24 02:57 Creatinine 0.74 mg/dl (0.6-1.2) 07/04/24 02:57 Est Cr Clr Drug Dosing 60.1 ml/min 07/04/24 02:57 eGFR 86.98 07/04/24 02:57 BUN/Creatinine Ratio 25.7 (10-20) H 07/04/24 02:57 Glucose 134 mg/dl (70-99(Fasting)) H 07/04/24 02:57 Lactate 1.7 mmol/L (0.4-2.0) 07/04/24 02:57 Calcium 9.3 mg/dl (8.6-10.3) 07/04/24 02:57 Total Bilirubin 0.5 mg/dl (0.2-1.0) 07/04/24 02:57 AST 21 U/L (13-39) 07/04/24 02:57 ALT 21 U/L (7-52) 07/04/24 02:57 Alkaline Phosphatase 56 U/L (34-104) 07/04/24 02:57 Troponin I High Sens 4.1 pg/ml (0-14) 07/04/24 02:57 Total Protein 6.4 gm/dl (6.0-8.3) 07/04/24 02:57 Albumin 4.0 gm/dl (3.4-5.0) 07/04/24 02:57 Globulin 2.4 gm/dl (2.5-4.0) L 07/04/24 02:57 Albumin/Globulin Ratio 1.7 (0.9-2) 07/04/24 02:57 Lipase 130 U/L (11-82) H 07/04/24 02:57 Urine Color Yellow 07/04/24 05:08 Urine Appearance Clear (Clear) 07/04/24 05:08 Urine pH 8.5 (4.5-7.5) H 07/04/24 05:08 Ur Specific [place] > 1.045 (1.000-1.030) H 07/04/24 05:08 Urine Protein Negative (Negative) 07/04/24 05:08 Urine Glucose (UA) Negative (Negative) 07/04/24 05:08 Urine Ketones Trace (Negative) H 07/04/24 05:08 Urine Blood Negative (Negative) 07/04/24 05:08 Urine Nitrite Negative (Negative) 07/04/24 05:08 Urine Bilirubin Negative (Negative) 07/04/24 05:08 Urine Urobilinogen Negative (Negative) 07/04/24 05:08 Ur Leukocyte Esterase Negative (Negative) 07/04/24 05:08 Impressions Abdomen/Pelvis CT 07/04/24 03:09 EXAM: CT abd pelvis IV con only CLINICAL HISTORY: N/V WITH HX OF SBO, 93 ML OPTIRAY 320 TECHNIQUE: CT of the abdomen and pelvis was performed with contrast (93 ML OPTIRAY 320), with the following protocol: axial images with, reconstructed coronal and sagittal images. One of the following dose reduction techniques was utilized for this exam: Automated exposure control, adjustment of the mA and/or kV according to patient size, and use of iterative reconstruction. COMPARISON: Comparison is made with 06/24/2024 cr and 06/21/2024 ct. FINDINGS: Abdomen: Liver: Normal in size, shape, and density. There is a 7 mm cyst in segment 8 of the liver. No masses were identified. Hepatic vasculature and biliary ducts are unremarkable. Gallbladder and Biliary System: The gallbladder is normal in size and shape. No wall thickening, pericholecystic fluid, or gallstones were identified. The common bile duct is normal in caliber without dilation. Pancreas: Pancreatic head, body, and tail are visualized and appear normal in size and density. No pancreatic masses or calcifications were noted. The pancreatic duct is not dilated. Spleen: Normal in size, shape, and density. No splenic lesions or masses were identified. Kidneys and Adrenal Glands: Both kidneys are normal in size, shape, and position. Cortical thickness is within normal limits. No renal calculi or hydronephrosis. Adrenal glands are unremarkable with no evidence of masses or hyperplasia. Pelvis: Urinary Bladder: Normal in contour and wall thickness. No intraluminal lesions were identified. Uterus: Normal in size and contour. No masses or abnormal thickening. Ovaries: Not well visualized but no gross abnormalities were noted. Vagina: Normal in contour and wall thickness. Cervix: No evidence of mass or abnormal thickening. Peritoneal and Retroperitoneal Structures: There are mild ascites. No lymphadenopathy was noted. Bowel: The colon loops are normal in calibration with fecal loading. Prominent dilatation with air-fluid leveling of the distal jejunal and ileal loops was noted. The proximal jejunal loops are normal in caliber. No significant wall thickening. No sign of appendicitis. Bones and Soft Tissues: Mild levoscoliosis noted. L4-S1 posterior fixator rods and screws noted. There are bony defects of the posterior elements of the L4 and L5 vertebrae. L4-L5 disc spacer noted. Decreased heights of the L3-L4 and L5-S1 discs with bulgings were noted. There are osteophytes with facet joints hypertrophies of the lumbar spine. Pelvic bones and soft tissues are unremarkable. No fractures or abnormal masses were identified. IMPRESSION: 1. Prominent dilatation and air-fluid leveling of the distal jejunal and ileal loops without a significant point of transition. This finding is suggestive of mild to moderate small bowel obstruction. On the other hand, there is fecal loading of the colon loops and air traced up to the rectum, thus these findings might be secondary to paralytic/brit ileus rather than mechanical obstruction. Please correlate clinically. 2. Mild ascites. 3. Other findings are in the report. 4. When compared to prior examination: The ascites show interval regression. Previously the small bowel dilatation was also evident on the proximal jejunal loops, whereas now they are in normal calibration. Fecal loading of the colon loops is more prominent at this time. Other findings are similar. Electronically signed by Edward Molina 07-04-2024 04:38 AM ECG Additional Comments: ECG. Normal sinus rhythm rate of 96. Nonspecific T wave abnormality in lateral leads Code Status & VTE Plan VTE Prophylaxis Plan VTE Prophylaxis will be ordered: Yes
[2024-07-04] MEDS ORDERED: AZELASTINE HCL 0.1% NASAL 200 SPRAYS/27,400 MCG BTL PRN (08:46)
[2024-07-04] MEDS ORDERED: hydrALAZINE HCL 20 MG/ML VIAL IV PRN (08:46)
[2024-07-04] MEDS ORDERED: ARTIFICIAL TEARS OP PRN (08:56)
[2024-07-04] MEDS: D5W AND NSS 1,000 ML IV SCH (09:31)
[2024-07-04] MEDS: lisinopril 40 MG TAB PO SCH (09:32)
[2024-07-04] MEDS: busPIRone 5 MG TAB PO SCH (09:32)
[2024-07-04] MEDS: amLODIPine BESYLATE 5 MG TAB PO SCH (09:32)
[2024-07-04] MEDS: buPROPion SR 150 MG TABCR PO SCH (09:33)
[2024-07-04] MEDS: ATORVASTATIN 20 MG TAB PO SCH (09:33)
[2024-07-04] MEDS: HEPARIN SOD 5,000 UNIT/0.5 ML VIAL SQ SCH (09:47)
[2024-07-04 10:44] LABS: Basophils # (auto) 0.03 K/uL (0.00-0.20); Basophils % (auto) 0.3 %; Eosinophils # (auto) 0.02 K/uL (0.00-0.50); Eosinophils % (auto) 0.2 %; Hemoglobin 11.6 g/dl (12.0-16.0); Immature Granulocytes # (auto) 0.02 K/uL (0.01-0.20); Immature Granulocytes % (auto) 0.2 %; Lymphocytes # (auto) 1.21 K/uL (1.20-3.40); Mean Corpuscular Hemoglobin 33.1 pg (25.0-34.0); Mean Corpuscular Hgb Conc 35.2 g/dL (32.0-36.0); Mean Corpuscular Volume 94.3 fL (80.0-100.0); Monocytes # (auto) 0.62 K/uL (0.11-0.59); Monocytes % (auto) 7.2 %; Neutrophils # (auto) 6.73 K/uL (1.40-6.50); Neutrophils % (auto) 78.1 %; Platelet Count 333 K/uL (130-400); RDW Coefficient of Variation 13.7 % (11.5-14.5); RDW Standard Deviation 47.3 fL (36.4-46.3); White Blood Count 8.63 K/ul (4.8-10.8)
[2024-07-04 10:57] LABS: BUN Creatinine Ratio 21.9 (10-20); Creatinine Clr Calc Pharmacy 60.9 ml/min; Potassium 4.2 mmol/L (3.5-5.1)
--- NOTE | 2024-07-04 11:03 | Communication Note ---
Date of Service: July 04, 2024 Patient seen and examined. Reports abd pain is much improved Reported a small BM earlier Reports nausea/vomiting have resolved No abd distention on exam. Mild tenderness Continue NPO and bowel rest for today Continue IVF Agree with other plans as detailed in H/P this AM
--- OUTSIDE RECORDS SUMMARY | 2024-07-04 12:36 | External Medical Summary | Summary of Care ---
Author Name Unknown Organization [facility] Address [address] [place] [address] Phone [phone] Care Team Providers Care Psychologist Research Assistant Name Role Phone Germán Felton MD Primary Care Provider + Encounter Details Date Type Department Care Team (Latest Contact Info) Description 06/22/2024 12:50 PM EST - 06/22/2024 11:59 PM EST Hospital Encounter Radiology Film File [address] [place] [address] Discharge Disposition: Home - Self Care Allergies Active Allergy Reactions Criticality Noted Date Comments Abaloparatide 06/06/2024 Other Reaction(s): heart palpitations Bupropion Medium 01/26/2023 Other Reaction(s): low sodium/requires monitoring while taking Hydrochlorothiazide Low 01/26/2023 Other Reaction(s): SEVERE HEADACHES , DIZZINESS Teriparatide 06/06/2024 Other Reaction(s): Palpitations documented as of this encounter (statuses as of 06/27/2024) Medications Ibuprofen 200 MG Oral Capsule Take 1 [...] 2 times a day. 60 Cap 1 9 Active NATURAL SUPPLEMENTIndic ations:369 plant base ( fish oil) Take by mouth daily. Active polyethylene glycol 3350 (MIRALAX) 119 gram POWDIndications :taking half capsule in the morning and in [...] Active Vitamin B-12 1000 MCG Oral Tablet (Cyanocobalamin ) Take 1 Tablet by mouth in the [...] 1 Tablet by mouth in the morning. 4 Active amLODIPine Besylate 5 MG Oral Tablet (Norvasc) Take 1 Tablet by mouth in the morning. 4 Active Ubiquinol 200 MG Oral Capsule 200 mg. 3 Active Azelastine HCl 0.1 % Nasal Solution (Astelin) Administer 2 Sprays into nostril as needed. 3 Active Nitroglycerin 0.4 MG Sublingual Tablet Sublingual (Nitrostat) Place 1 Tablet under the tongue every 5 minutes as needed. 3 Active cycloSPORINE 0.05 % Ophthalmic Emulsion (Restasis) Instill 1 Drop into both eyes in the morning and 1 Drop before bedtime. Active Theratears 0.25 % Ophthalmic Solution (Carboxymethylc ellulose Sodium) Instill into eye. Active buPROPion HCl 100 MG Oral Tablet (Wellbutrin) Take 2 Tablets by mouth every morning. Active documented as of this encounter (statuses as of 06/27/2024) Active Problems Problem Noted Date Diagnosed Date Small bowel obstruction 06/24/2024 documented as of this encounter (statuses as of 06/27/2024) Social History Tobacco Use Types Packs/Day Years Used Date Smoking Tobacco: Never Smokeless Tobacco: Never Alcohol Use Standard Drinks/Week Comments Yes 0 (1 standard drink = 0.6 oz pur e alcohol) occasional, wine Comments Unknown Sex and Gender Information Value Date Recorded Sex Assigned at Not on file Legal Sex Female 8:16 AM EST Gender Identity Not on file Sexual Orientation Not on file documented as of this encounter Plan of Treatment Upcoming Encounters Date Type Department Care Team (Late st Contact Info) Description 07/12/2024 3:00 PM EST Telemedicine General Surgery, [facility] [address] [place] [address] Clinic, Emergency General Surgery [address] [place] [address] 09/11/2024 11:00 AM EST Office Visit Ophthalmology, [facility] [address] [place] [address] [address], [address] [place] [address] Health Maintenance Due Date Last Done Comments Depression Screening 1966 Hepatitis C Screening 1972 DTap/Tdap Vaccines (1 - Tdap) 1973 Cologuard 1999 Fecal Occult Blood Test 1999 Sigmoidoscopy 1999 COVID-19 Vaccine ( - season) 2024 Influenza Vaccine (FLU shot) (#1) [...] Not on filedocumented as of this encounter Procedures Procedure Name Priority Date/Time Associated Diagnosis Comments RADIOLOGY EXAM - GENERAL RAD (IMAGES ONLY,NO REPORT) Routine 06/22/2024 12:50 PM EST documented in this encounter Results * RADIOLOGY EXAM - GENERAL RAD (IMAGES ONLY,NO REPORT) (06/22/2024 12:50 PM EST) 06/22/2024 12:5 0 PM EST Narrative Scheduling, Silent - 06/26/2024 10:54 AM EST This is an imaging study not interpreted or resulted by a [facility] or [employer] contracted radiologist. us Kyrie Lopez MD RADIOLOGY (RAD GENERAL) Final Re sult documented in this encounter Advance Directives * Full Code (Latest Code Status on File) Date Activated Date Inactivated Comments 06/24/2024 8:00 PM 06/26/2024 10:31 PM This orde r reflects the patients wishes and were consensually agreed upon. Question Answer Comments Discussion of Advance Directives occurred with: Patient Does the patient have a Living Will? No Does the patient have Health Care Power of Attor nikolai? No Care Teams Psychologist Research Assistant Relationship Specialty Start Date End Date Germán Felton MD [address] [place] [address] PCP - General Family Medicine 01/12/19 documented as of this encounter
--- OUTSIDE RECORDS SUMMARY | 2024-07-04 12:36 | External Medical Summary | Summary of Care ---
Author Name Unknown Organization [facility] Address [address] [place] [address] Phone [phone] Care Team Providers Care Line Out Worker Name Role Phone Germán Felton MD Primary Care Provider + Encounter Details Date Type Department Care Team (Latest Contact Info) Description 06/21/2024 7:50 PM EST - 06/21/2024 11:59 PM EST Hospital Encounter Radiology Film File [address] [place] [address] Discharge Disposition: Home - Self [...] 07/12/2024 3:00 PM EST Telemedicine General Surgery, [place] [address] [place] [address] Clinic, Emergency General Surgery [address] [place] [address] 09/11/2024 11:00 AM EST Office Visit Ophthalmology, [facility] [address] [facility] [place] [address] David Kinney, [address] [place] [address] Health Maintenance Due Date Last Done Comments [...] - GENERAL RAD (IMAGES ONLY,NO REPORT) Routine 06/21/2024 7:50 PM EST documented in this encounter Results * RADIOLOGY EXAM - GENERAL RAD (IMAGES ONLY,NO REPORT) (06/21/2024 7:50 PM EST) 06/21/2024 7:42 PM EST Narrative Scheduling, Silent - 06/26/2024 10:58 AM EST This is an imaging study not interpreted or resulted by a [facility] or [employer] contracted radiologist. us Kyrie Lopez MD RADIOLOGY [...] Power of Attor nikolai? No Care Teams Line Out Worker Relationship Specialty Start Date End Date Germán Felton MD [address] [place] [address] PCP - General Family Medicine 01/12/19 documented as of this encounter
--- OUTSIDE RECORDS SUMMARY | 2024-07-04 12:36 | External Medical Summary | Summary of Care ---
Author Name Unknown Organization [facility] Address [address] [place] [address] Phone [phone] Care Team Providers Care Inclined Railway Operator Name Role Phone Germán Felton MD Primary Care Provider + Encounter Details Date Type Department Care Team (Latest Contact Info) Description 06/21/2024 7:45 PM EST - 06/21/2024 7:49 PM EST Hospital Encounter Radiology Film File [address] [place] [address] Discharge Disposition: Home - Self [...] 07/12/2024 3:00 PM EST Telemedicine General Surgery, [place] [address] [place] [address] Clinic, Emergency General Surgery [address] [place] [address] 09/11/2024 11:00 AM EST Office Visit Ophthalmology, [facility] [address] [facility] [place] [address] David Kinney, [address] [place] [address] Health Maintenance Due Date Last Done Comments [...] GENERAL RAD (IMAGES ONLY,NO REPORT) Routine 06/21/2024 7:45 PM EST documented in this encounter Results * RADIOLOGY EXAM - GENERAL RAD (IMAGES ONLY,NO REPORT) (06/21/2024 7:45 PM EST) 06/21/2024 7:42 PM EST Narrative Scheduling, Silent - 06/26/2024 10:56 AM EST This is an imaging study not interpreted or resulted by a [email or web address] or [employer] contracted radiologist. us Kyrie Lopez MD RADIOLOGY [...] Power of Attor nikolai? No Care Teams Inclined Railway Operator Relationship Specialty Start Date End Date Germán Felton MD [address] [place] [address] PCP - General Family Medicine 01/12/19 documented as of this encounter
--- OUTSIDE RECORDS SUMMARY | 2024-07-04 12:36 | External Medical Summary | Summary of Care ---
Author Name Unknown Organization [facility] Address [address] [place] [address] Phone [phone] Care Team Providers Care Computer Laboratory Technician Name Role Phone Germán Felton MD Primary Care Provider + Encounter Details Date Type Department Care Team (Latest Contact Info) Description 06/21/2024 6:15 PM EST - 06/21/2024 7:44 PM EST Hospital Encounter Radiology Film File [address] [place] [address] Discharge Disposition: Home - Self [...] 07/12/2024 3:00 PM EST Telemedicine General Surgery, [place] [address] [place] [address] Clinic, Emergency General Surgery [address] [place] [address] 09/11/2024 11:00 AM EST Office Visit Ophthalmology, [facility] [address] [facility] [place] [address] David Kinney, [address] [place] [address] Health Maintenance Due Date Last Done Comments [...] Date/Time Associated Diagnosis Comments RADIOLOGY EXAM - CT (IMAGES ONLY, NO REPORT) Routine 06/21/2024 6:15 PM EST documented in this encounter Results * RADIOLOGY EXAM - CT (IMAGES ONLY, NO REPORT) (06/21/2024 6:15 PM EST) 06/21/2024 6:12 PM EST Narrative Scheduling, Silent - 06/26/2024 10:52 AM EST This is an imaging study not interpreted or resulted by a [employer] or [employer] contracted radiologist. us Kyrie Lopez MD RAD CT Final Result documented in this encounter Advance Directives * [...] Power of Attor nikolai? No Care Teams Computer Laboratory Technician Relationship Specialty Start Date End Date Germán Felton MD [address] [place] [address] PCP - General Family Medicine 01/12/19 documented as of this encounter
--- OUTSIDE RECORDS SUMMARY | 2024-07-04 12:37 | External Medical Summary | Summary of Care ---
Author Name Unknown Organization [facility] Address [address] [place] [address] Phone [phone] Care Team Providers Care Acting Manager Name Role Phone Germán Felton MD Primary Care Provider + Encounter Details Date Type Department Care Team (Latest Contact Info) Description 06/23/2024 9:55 AM EST - 06/23/2024 11:59 PM EST Hospital Encounter Radiology Film File [address] [place] [address] Discharge Disposition: Home - Self [...] 07/12/2024 3:00 PM EST Telemedicine General Surgery, [place] [address] [place] [address] Clinic, Emergency General Surgery [address] [place] [address] 09/11/2024 11:00 AM EST Office Visit Ophthalmology, [facility] [address] [facility] [place] [address] David Kinney, [address] [place] [address] Health Maintenance Due Date Last Done Comments [...] - GENERAL RAD (IMAGES ONLY,NO REPORT) Routine 06/23/2024 9:55 AM EST documented in this encounter Results * RADIOLOGY EXAM - GENERAL RAD (IMAGES ONLY,NO REPORT) (06/23/2024 9:55 AM EST) 06/23/2024 9:53 AM EST Narrative Scheduling, Silent - 06/26/2024 10:53 AM EST This is an imaging study not interpreted or resulted by a [employer] or [employer] contracted radiologist. us Kyrie Lopez MD RADIOLOGY [...] Power of Attor nikolai? No Care Teams Acting Manager Relationship Specialty Start Date End Date Germán Felton MD [address] [place] [address] PCP - General Family Medicine 01/12/19 documented as of this encounter
--- OUTSIDE RECORDS SUMMARY | 2024-07-04 12:37 | External Medical Summary ---
Author Name Unknown Address Unknown Organization K01:[facility] [place] [facility] [address] [facility] [address] Laboratory Report Ordering Provider Test Date Status FERNANDO BERKOWITZ 06/25/2024 07:55:00 Final Observation Date Value Abnormality Reference (Units ) Status WBC, Total 06/25/2024 07:55:00 6.15 4.00-10.80 (K/uL) Final RBC 06/25/2024 07:55:00 3.58 3.85-5.15 (M/uL) Final Hemoglobin 06/25/2024 07:55:00 12.0 12.0-15.3 (g/dL) Final HCT 06/25/2024 07:55:00 35.1 Below low normal 36.0-45.2 (%) Final MCV 06/25/2024 07:55:00 98.0 81.5-97.5 (fL) Final MCH 06/25/2024 07:55:00 33.5 27.0-34.0 (pg) Final MCHC 06/25/2024 07:55:00 34.2 32.0-36.0 (g/dL) Final RDW 06/25/2024 07:55:00 13.4 11.5-15.5 (%) Final Platelets 06/25/2024 07:55:00 227 140-400 (K/uL) Final MPV 06/25/2024 07:55:00 9.4 6.6-11.1 (fL) Final Nucleated erythrocytes/100 leukocytes [Ratio] in Blood by Automated count 06/25/2024 07:55:00 0 <=0 (/100 WBCs) Final Performing Location LAB[facility]ORY [facility] [place] [address] [facility] [address]
--- OUTSIDE RECORDS SUMMARY | 2024-07-04 12:37 | External Medical Summary | Summary of Care ---
Author Name Unknown Organization [facility] Address [address] [place] [address] Phone [phone] Care Team Providers Care Accreditation Specialist Name Role Phone Germán Felton MD Primary Care Provider + Encounter Details Date Type Department Care Team (Late st Contact Info) Description 06/21/2024 Orders Only Unspecified Department Kyrie Lopez MD [address] [place] [address] Allergies Active Allergy Reactions Criticality Noted Date Comments Abaloparatide 06/06/2024 Other Reaction(s): heart palpitations Bupropion Medium 01/26/2023 Other Reaction(s): low sodium/requires monitoring while taking Hydrochlorothiazide Low 01/26/2023 Other Reaction(s): SEVERE HEADACHES , DIZZINESS Teriparatide 06/06/2024 Other Reaction(s): Palpitations documented as of this encounter (statuses as of 06/26/2024) Medications Ibuprofen 200 MG Oral Capsule Take 1 Capsule by mouth every 4 hours as needed for Pain. Suspended Loratadine 10 MG Oral Capsule Take 1 Capsule by mouth in the morning. Suspended Cholecalcifero l (VITAMIN D3) 2000 units Capsule Take 1,000 Units by mouth. Suspended Coenzyme Q10 (CO Q 10) 10 MG CAPS Suspended dicyclomine (BENTYL) 10 MG Capsule Take 1 Cap by mouth 2 times a day. 60 Cap 1 9 Suspended NATURAL SUPPLEMENTIndi cations:369 plant base ( fish oil) Take by mouth daily. Suspended polyethylene glycol 3350 (MIRALAX) 119 gram POWDIndication s:taking half capsule in the morning and in the evening Take 119 g by mouth once. Suspended Atorvastatin Calcium 20 MG Oral Tablet Take 1 Tablet by mouth in the morning. Suspended Fish Oil 1000 MG Oral Capsule Take 1 Capsule by mouth in the morning. Suspended Losartan Potassium 25 MG Oral Tablet (Cozaar) Take 2 Tablets by mouth in the morning and 2 Tablets before bedtime. Suspended Aspirin 81 MG Oral Tablet Chewable Take 1 Tablet by mouth in the morning. Suspended Biotin 1 MG Oral Capsule Take 1 Capsule by mouth in the morning. 5000mg. Suspended Pro-C-Dure 5 2 X 40 MG/ML Injection Kit Inject as directed. Suspended PreserVision AREDS Oral Capsule Take 1 Capsule by mouth in the morning. Suspended Vitamin B-12 1000 MCG Oral Tablet (Cyanocobalami n) Take 1 Tablet by mouth in the morning. Suspended Famotidine 10 MG Oral Tablet (Pepcid AC) Take 1 Tablet by mouth in the morning and 1 Tablet before bedtime. Chewable . Suspended busPIRone HCl 10 MG Oral Tablet (Buspar) Take 1 Tablet by mouth in the morning and 1 Tablet at noon and 1 Tablet in the evening and 1 Tablet before bedtime. Suspended LORazepam 0.5 MG Oral Tablet (Ativan) Take 1 Tablet by mouth every 6 hours as needed. Suspended Glucosamine Chond Complex/MSM Oral Tablet Take 1 Tablet by mouth in the morning and 1 Tablet before bedtime. Suspended Lisinopril 40 MG Oral Tablet Take 1 Tablet by mouth in the morning. 4 Suspended amLODIPine Besylate 5 MG Oral Tablet (Norvasc) Take 1 Tablet by mouth in the morning. 4 Suspended Ubiquinol 200 MG Oral Capsule 200 mg. 3 Suspended Azelastine HCl 0.1 % Nasal Solution (Astelin) Administer 2 Sprays into nostril as needed. 3 Suspended Nitroglycerin 0.4 MG Sublingual Tablet Sublingual (Nitrostat) Place 1 Tablet under the tongue every 5 minutes as needed. 3 Suspended cycloSPORINE 0.05 % Ophthalmic Emulsion (Restasis) Instill 1 Drop into both eyes in the morning and 1 Drop before bedtime. Suspended Theratears 0.25 % Ophthalmic Solution (Carboxymethyl cellulose Sodium) Instill into eye. Suspended buPROPion HCl 100 MG Oral Tablet (Wellbutrin) Take 2 Tablets by mouth every morning. Suspended documented as of this encounter (statuses as of 06/26/2024) Active Problems Problem Noted Date Diagnosed Date Small bowel obstruction 06/24/2024 documented as of this encounter (statuses as of 06/26/2024) Social History Tobacco Use Types Packs/Day Years [...] 07/12/2024 3:00 PM EST Telemedicine General Surgery, [place] [address] [place] [address] Clinic, Emergency General Surgery [address] [place] [address] 09/11/2024 11:00 AM EST Office Visit Ophthalmology, [facility] [address] [facility] [place] [address] David Kinney, [address] [place] [address] Health Maintenance Due Date Last Done Comments [...] study not interpreted or resulted by a [employer] or [employer] contracted radiologist. us Kyrie Lopez MD RADIOLOGY (RAD GENERAL) Final Re sult documented in this encounter Advance Directives * Full Code (Latest Code Status on File) Date Activated Date Inactivated Comments 06/24/2024 8:00 PM This order re flects the patients wishes and were consensually agreed upon. Question Answer Comments Discussion of Advance Directives occurred with: Patient Does the patient have a Living Will? No Does the patient have Health Care Power of Attor nikolai? No Care Teams Accreditation Specialist Relationship Specialty Start Date End Date Germán Felton MD [address] [place] [address] PCP - General Family Medicine 01/12/19 documented as of this encounter
--- OUTSIDE RECORDS SUMMARY | 2024-07-04 12:37 | External Medical Summary | Summary of Care ---
Author Name Unknown Organization [facility] Address [address] [place] [address] Phone [phone] Care Team Providers Care Casting Coordinator Name Role Phone Germán Felton MD Primary Care Provider + Encounter Details Date Type Department Care Team (Late st Contact Info) Description 06/23/2024 Orders Only Unspecified Department Kyrie Lopez MD [address] [place] [address] Allergies Active Allergy Reactions Criticality [...] 07/12/2024 3:00 PM EST Telemedicine General Surgery, [place] [address] [place] [address] Clinic, Emergency General Surgery [address] [place] [address] 09/11/2024 11:00 AM EST Office Visit Ophthalmology, [facility] [address] [facility] [place] [address] David Kinney, [address] [place] [address] Health Maintenance Due Date Last Done Comments [...] study not interpreted or resulted by a [employer] or [employer] contracted radiologist. us Kyrie Lopez MD RADIOLOGY [...] Power of Attor nikolai? No Care Teams Casting Coordinator Relationship Specialty Start Date End Date Germán Felton MD [address] [place] [address] PCP - General Family Medicine 01/12/19 documented as of this encounter
--- OUTSIDE RECORDS SUMMARY | 2024-07-04 12:37 | External Medical Summary ---
Author Name Unknown Address Unknown Organization K01:LABORATORY [facility] - [address] [place] [address] Laboratory Report Ordering Provider Test Date Status FERNANDO BERKOWITZ 06/26/2024 07:10:00 Final Observation Date Value Abnormality Reference (Units ) Status Magnesium 06/26/2024 07:10:00 1.8 1.5-2.6 (m g/dL) Final Performing Location LAB[facility]ATORY [facility] - [address] [place] [id number]
--- OUTSIDE RECORDS SUMMARY | 2024-07-04 12:37 | External Medical Summary | Summary of Care ---
Author Name Unknown Organization [facility] Address [address] [place] [address] Phone [phone] Care Team Providers Care Chicken Hatchery Helper Name Role Phone Germán Felton MD Primary Care Provider + Encounter Details Date Type Department Care Team (Late st Contact Info) Description 06/21/2024 Orders Only Unspecified Department Kyrie Lopez MD [address] [place] [address] Allergies Active Allergy Reactions Criticality [...] 07/12/2024 3:00 PM EST Telemedicine General Surgery, [place] [address] [place] [address] Clinic, Emergency General Surgery [address] [place] [address] 09/11/2024 11:00 AM EST Office Visit Ophthalmology, [facility] [place] [address] David Kinney, [address] [place] [address] Health Maintenance Due Date Last Done Comments [...] study not interpreted or resulted by a [employer] or [employer] contracted radiologist. us Kyrie Lopez MD RADIOLOGY [...] Power of Attor nikolai? No Care Teams Chicken Hatchery Helper Relationship Specialty Start Date End Date Germán Felton MD [address] [place] [address] PCP - General Family Medicine 01/12/19 documented as of this encounter
--- OUTSIDE RECORDS SUMMARY | 2024-07-04 12:37 | External Medical Summary | Summary of Care ---
Author Name Unknown Organization [facility] Address [address] [place] [address] Phone [phone] Care Team Providers Care Warp Placer Name Role Phone Germán Felton MD Primary Care Provider + Encounter Details Date Type Department Care Team (Late st Contact Info) Description 06/22/2024 Orders Only Unspecified Department Kyrie Lopez MD [address] [place] [address] Allergies Active Allergy Reactions Criticality [...] 07/12/2024 3:00 PM EST Telemedicine General Surgery, [place] [address] [place] [address] Clinic, Emergency General Surgery [address] [place] [address] 09/11/2024 11:00 AM EST Office Visit Ophthalmology, [facility] [address] [facility] [place] [address] David Kinney, [address] [place] [address] Health Maintenance Due Date Last Done Comments [...] study not interpreted or resulted by a [employer] or [employer] contracted radiologist. us Kyrie Lopez MD RADIOLOGY [...] Power of Attor nikolai? No Care Teams Warp Placer Relationship Specialty Start Date End Date Germán Felton MD [address] [place] [address] PCP - General Family Medicine 01/12/19 documented as of this encounter
--- OUTSIDE RECORDS SUMMARY | 2024-07-04 12:37 | External Medical Summary ---
Author Name Unknown Address Unknown Organization K01:LABORATORY [facility] - [address] [place] [address] Laboratory Report Ordering Provider Test Date Status FERNANDO BERKOWITZ 06/25/2024 07:55:00 Final Observation Date Value Abnormality Reference (Units ) Status Phosphate 06/25/2024 07:55:00 2.0 Below low normal 2.5 -4.8 (mg/dL) Final Performing Location [facility] - [address] [place] [address]
--- OUTSIDE RECORDS SUMMARY | 2024-07-04 12:37 | External Medical Summary ---
Author Name Unknown Address Unknown Organization K01:LABORATORY [facility] [place] [facility] - [address] [place] [address] Laboratory Report Ordering Provider Test Date Status MATILDA CALVILLO 06/24/2024 22:00:00 Final Observation Date Value Abnormality Reference (Units ) Status ABO 06/24/2024 22:00:00 B Final RH 06/24/2024 22:00:00 Positive Final RED BLOOD CELL ANTIBODY SCREEN 06/24/2024 22:00:00 Negative Final SPECIMEN EXPIRATION DATE 06/24/2024 22:00:00 06/27/2024 23:59 Final Performing Location LABORATORY [facility] - [address] [place] [address]
--- OUTSIDE RECORDS SUMMARY | 2024-07-04 12:37 | External Medical Summary ---
Author Name Unknown Address Unknown Organization K01:[facility] [place] [facility] [place] [address] [place] [address] Laboratory Report Ordering Provider Test Date Status FERNANDO BERKOWITZ 06/25/2024 07:55:00 Final Observation Date Value Abnormality Reference (Units ) Status BUN 06/25/2024 07:55:00 16 6-20 (mg/dL) Final Creatinine 06/25/2024 07:55:00 0.5 0.5-1.0 (mg/dL) Final Glomerular filtration rate/1.73 sq M.predicted [Volume Rate/Area] in Serum, Plasma or Blood by Creatinine-based formula (CKD-EPI) 06/25/2024 07:55:00 >90 >=60 (mL/min) Final eGFR is calculated based on the CKD-EPI 2020 equation. Sodium 06/25/2024 07:55:00 136 135-146 (m mol/L) Final Potassium 06/25/2024 07:55:00 3.1 Below low normal 3.5 -5.1 (mmol/L) Final Cl 06/25/2024 07:55:00 95 Below low normal 98- 107 (mmol/L) Final CO2 06/25/2024 07:55:00 24 22-32 (mmo l/L) Final Anion gap 06/25/2024 07:55:00 17 Above high normal 7- 15 (mmol/L) Final Glucose 06/25/2024 07:55:00 87 70-120 (mg /dL) Final Calcium 06/25/2024 07:55:00 8.5 8.4-10.2 ( mg/dL) Final Performing Location [facility] [place] [address] [place] [address]
--- OUTSIDE RECORDS SUMMARY | 2024-07-04 12:37 | External Medical Summary ---
Author Name Unknown Address Unknown Organization K01:[facility] [place] [facility] [address] [facility] [address] Laboratory Report Ordering Provider Test Date Status MATILDA CALVILLO 06/24/2024 22:00:00 Final Observation Date Value Abnormality Reference (Units ) Status WBC, Total 06/24/2024 22:00:00 5.29 4.00-10.80 (K/uL) Final RBC 06/24/2024 22:00:00 3.60 3.85-5.15 (M/uL) Final Hemoglobin 06/24/2024 22:00:00 11.9 Below low normal 12.0-15.3 (g/dL) Final HCT 06/24/2024 22:00:00 35.6 Below low normal 36.0-45.2 (%) Final MCV 06/24/2024 22:00:00 98.9 81.5-97.5 (fL) Final MCH 06/24/2024 22:00:00 33.1 27.0-34.0 (pg) Final MCHC 06/24/2024 22:00:00 33.4 32.0-36.0 (g/dL) Final RDW 06/24/2024 22:00:00 13.3 11.5-15.5 (%) Final Platelets 06/24/2024 22:00:00 218 140-400 (K/uL) Final MPV 06/24/2024 22:00:00 9.0 6.6-11.1 (fL) Final Nucleated erythrocytes/100 leukocytes [Ratio] in Blood by Automated count 06/24/2024 22:00:00 0 <=0 (/100 WBCs) Final Performing Location LABOR[facility]ORY [facility] [place] - [address] [place] [address]
--- OUTSIDE RECORDS SUMMARY | 2024-07-04 12:37 | External Medical Summary ---
Author Name Unknown Address Unknown Organization K01:[place] [place] [address] [place] [address] Laboratory Report Ordering Provider Test Date Status MATILDA CALVILLO 06/24/2024 22:00:00 Final Observation Date Value Abnormality Reference (Units ) Status BUN 06/24/2024 22:00:00 21 Above high normal 6-20 (mg/dL) Final Creatinine 06/24/2024 22:00:00 0.5 0.5-1.0 (mg/dL) Final Glomerular filtration rate/1.73 sq M.predicted [Volume Rate/Area] in Serum, Plasma or Blood by Creatinine-based formula (CKD-EPI) 06/24/2024 22:00:00 >90 >=60 (mL/min) Final eGFR is calculated based on the CKD-EPI 2020 equation. Sodium 06/24/2024 22:00:00 137 135-146 (m mol/L) Final Potassium 06/24/2024 22:00:00 3.4 Below low normal 3.5 -5.1 (mmol/L) Final Cl 06/24/2024 22:00:00 97 Below low normal 98- 107 (mmol/L) Final CO2 06/24/2024 22:00:00 24 22-32 (mmo l/L) Final Anion gap 06/24/2024 22:00:00 16 Above high normal 7- 15 (mmol/L) Final Glucose 06/24/2024 22:00:00 101 70-120 (mg /dL) Final Calcium 06/24/2024 22:00:00 8.6 8.4-10.2 ( mg/dL) Final Performing Location [facility] [place] [address] [place] [address]
--- OUTSIDE RECORDS SUMMARY | 2024-07-04 12:37 | External Medical Summary | Summary of Care ---
Author Name Unknown Organization [facility] Address [address] [place] [address] Phone [phone] Care Team Providers Care Sales And Marketing Coordinator Name Role Phone Germán Felton MD Primary Care Provider + Encounter Details Date Type Department Care Team (Late st Contact Info) Description 06/21/2024 Orders Only Unspecified Department Kyrie Lopez MD [address] [place] [address] Allergies Active Allergy Reactions Criticality [...] 07/12/2024 3:00 PM EST Telemedicine General Surgery, [place] [address] [place] [address] Clinic, Emergency General Surgery [address] [place] [address] 09/11/2024 11:00 AM EST Office Visit Ophthalmology, [facility] [place] [address] [place], [address] [place] [address] Health Maintenance Due Date Last Done Comments [...] study not interpreted or resulted by a [employer] or [employer] contracted radiologist. us Kyrie Lopez MD RAD [...] Power of Attor nikolai? No Care Teams Sales And Marketing Coordinator Relationship Specialty Start Date End Date Germán Felton MD [address] [place] [address] PCP - General Family Medicine 01/12/19 documented as of this encounter
--- OUTSIDE RECORDS SUMMARY | 2024-07-04 12:37 | External Medical Summary | Summary of Care ---
Author Name Unknown Organization [facility] Address [address] [place] [address] Phone [phone] Care Team Providers Care Classifier Operator Name Role Phone Germán Felton MD Primary Care Provider + Reason for Visit * Auth/Cert Specialty Diagnoses / Procedures Referred By Namita carlos Referred To Contact Diagnoses SBO (small bowel obstruction) (HCC) SBO Sampson Pink MD [address] [place] [address] Phone: tel: fax: [facility] [address] [place] [address] Referral ID Status Reason Start Date Expiration Date Visits Re quested Visits Authorized [id number] Encounter Details Date Type Department Care Team (Latest Contact Info) Description 06/24/2024 7:11 PM EST - 06/26/2024 6:31 PM EST Hospital En[id number] [address], [place] [id number] Sampson Pink MD [address] [place] [address] Diagnostic Clarification Discharge Disposition: Home - Self Care Allergies [...] on file documented as of this encounter Last Filed Vital Signs Vital Sign Reading Time Taken Comments Blood Pressure 155/82 06/26/2024 4:02 PM EST Pulse 80 06/26/2024 4:02 PM EST Temperature 36.8 C (98.2 F) 06/26/2024 4:02 PM ES T Respiratory Rate 16 06/26/2024 4:02 PM EST Oxygen Saturation 98% 06/26/2024 4:02 PM EST Inhaled Oxygen Concentration - - Weight 51.8 kg (114 lb 2.5 oz) 06/24/2024 8:00 P M EST Height 165.1 cm (5' 5") 06/24/2024 7:13 PM EST Body Mass Index 19 06/24/2024 7:13 PM EST documented in this encounter Discharge Summaries * Carley Steward MD - 06/26/2024 12:54 PM EST [address] [address] Admission Date: 06/24/2024 Discharge Date: 06/26/2024 DISCHARGE DIAGNOSES: Active Hospital Problems Diagnosis Small bowel obstruction (HCC) Resolved Hospital Problems No resolved problems to display. Other Significant Diagnoses: none CONDITION ON DISCHARGE: stable Cognition: normal DISPOSITION ON DISCHARGE: home FOLLOW-UP: Future Appointments Appt Date/Time Provider Department 07/12/2024 3:00 PM Clinic, Emergency General Surgery General Surgery, [place]la Arrive at: Patient's Home 09/11/2024 11:00 AM David Kinney, Ophthalmology, [facility] Outpatient testing already scheduled: NA Outpatient testing that needs to be arranged: NA Inpatient test results pending: NA MEDICATIONS ON DISCHARGE: MEDICATION UPDATES AT DISCHARGE CONTINUE taking these medications INSTRUCTIONS amLODIPine 5 MG Tablet Commonly known as: Norvasc Take 1 Tablet by mouth in the morning. aspirin 81 MG chewable tablet Take 1 Tablet by mouth in the morning. atorvaSTATin 20 MG Tablet Commonly known as: Lipitor Take 1 Tablet by mouth in the morning. Azelastine 0.1 % nasal spray Commonly known as: Astelin Administer 2 Sprays into nostril as needed. Biotin 1 MG Capsule Take 1 Capsule by mouth in the morning. 5000mg. buPROPion 100 MG Tablet Commonly known as: Wellbutrin Take 2 Tablets by mouth every morning. busPIRone 10 MG Tablet Commonly known as: Buspar Take 1 Tablet by mouth in the morning and 1 Tablet at noon and 1 Tablet in the evening and 1 Tabletbefore bedtime. Co Q 10 10 MG Caps dicyclomine 10 MG Capsule Commonly known as: Bentyl Take 1 Cap by mouth 2 times a day. Fish Oil 1000 MG Capsule Take 1 Capsule by mouth in the morning. Glucosamine Chond Complex/MSM Tablet Take 1 Tablet by mouth in the morning and 1 Tablet before bedtime. Ibuprofen 200 MG Capsule Take 1 Capsule by mouth every 4 hours as needed for Pain. Lisinopril 40 MG Tablet Take 1 Tablet by mouth in the morning. Loratadine 10 MG Cap Take 1 Capsule by mouth in the morning. LORAzepam 0.5 MG Tablet Commonly known as: Ativan Take 1 Tablet by mouth every 6 hours as needed. losartan 25 MG Tablet Commonly known as: Cozaar Take 2 Tablets by mouth in the morning and 2 Tablets before bedtime. NATURAL SUPPLEMENT Take by mouth daily. Nitroglycerin 0.4 MG Subl Commonly known as: Nitrostat Place 1 Tablet under the tongue every 5 minutes as needed. Pepcid AC 10 MG Tablet Generic drug: Famotidine Take 1 Tablet by mouth in the morning and 1 Tablet before bedtime. Chewable . polyethylene glycol 3350 119 gram Powd Commonly known as: Miralax Take 119 g by mouth once. PreserVision AREDS Capsule Take 1 Capsule by mouth in the morning. Pro-C-Dure 5 2 X 40 MG/ML Kit Inject as directed. Restasis 0.05 % ophthalmic emulsion Generic drug: cycloSPORINE Instill 1 Drop into both eyes in the morning and 1 Drop before bedtime. Theratears 0.25 % Soln Generic drug: Carboxymethylcellulose Sodium Instill into eye. Ubiquinol 200 MG Caps 200 mg. Vitamin B-12 1000 MCG Tablet Commonly known as: Cyanocobalamin Take 1 Tablet by mouth in the morning. Vitamin D3 50 MCG (2000 UT) Capsule Take 1,000 Units by mouth. ALLERGIES: Bupropion, Abaloparatide, Teriparatide, and Hydrochlorothiazide INSTRUCTIONS: Activity: As tolerated Diet: normal diet Code Status: Full Code Indwelling devices: none ADMISSION HISTORY & PHYSICAL EXAM (focused): PRESENTING PROBLEM: SBO HISTORY OF PRESENT ILLNESS: Adair Ramos is a 69 year old, female with a history of HTN, HLD, pituitary tumor, depression, anxiety, and osteoporosis who was transferred from [facility] for concerns of small bowel obstruction. Shepresented to [facility] with abdominal pain and constipation starting 9 days ago. Imaging at [facility] demonstrated SBO. She had gastrografin which showed no contrast in the large bowel. Had NG tube placed . Reports vomiting starting on Wednesday. Presented to urgent care where she was told that symptoms were due to GI virus. Re-presented to [facility] for continued symptoms. States that she has had a small liquid bowel movement since receiving gastrografin, last BM prior to gastrografin was a few days. Distention has improved since NG tube placement. Not currently passing flatus. States that she had a prior SBO which she had surgery for, does not believe that she had a bowel resection at that time. PSH of arthroscopic rotator cuff repair 2014, back surgery, breast surgery to remove benign fibroidmasses x3, tendon repair of the hand, L inguinal hernia repair laparoscopic 2018, TMJ surgery 10/2023, and tonsillectomy 1982. HOSPITAL PROBLEM LIST: Active Problems: * No active hospital problems. * POA = Present On Admission PAST MEDICAL HISTORY: Past Medical History No past medical history on file. PAST SURGICAL HISTORY: Past Surgical History Past Surgical History: Procedure Laterality Date CATARACT SURGERY,COMPLEX Bilateral 11/09/2022 Dr. Hartley COLONOSCOPY, DIAGNOSTIC (RECTUM) 01/27/2023 colitis / [facility] EGD, FLEXIBLE, DIAGNOSTIC 01/27/2023 normal bx / [facility] INJECT DX/THER SUBSTANCE INTERLAMINAR LUMBAR/SACRAL W IMAGE GUIDE 01/19/2019 INJECTION SPINE LUMBAR OR SACRAL performed by Bobby Fran Cousins, DO at OR [facility] INJECT DX/THER SUBSTANCE INTERLAMINAR LUMBAR/SACRAL W IMAGE GUIDE 12/28/2019 INJECTION SPINE LUMBAR OR SACRAL performed by Bobby Cook Cousins, DO at [facility] INJECTION LUMBAR/SACRAL 08/19/2015 INJECTION SPINE LUMBAR OR SACRAL performed by Bobby Fran Cousins, DO at [facility] L-/S-SPINE PARAVERTEBRAL FACET INJ,1 LEVEL 10/09/2019 L-/S-SPINE PARAVERTEBRAL FACET INJ, 1 LEVEL performed by Bobby B Cousins, DO at [facility] MISCELLANEOUS ORDER ([facility] ONLY) hand surgery OTHER shoulder OTHER lumpectomy OTHER (INFORMATION) ACT [address] Kinney (12-14-22) FAMILY HISTORY: Family History Family History Problem Relation Name Age of Onset Colon polyps Mother Eye Problems Grandmother (Maternal) SOCIAL HISTORY: Social History Social History Tobacco Use Smoking status: Never Smokeless tobacco: Never Substance Use Topics Alcohol use: Yes Comment: occasional, wine Drug use: Never CURRENT HOSPITAL MEDICATIONS: Note that completed medications (per the MAR) continue to display for 24 hours. Ordered medicationsto be given in the future also display. Current Facility-Administered Medications Medication Dose Route Frequency Provider Acetaminophen (Tylenol) tab 975 mg 975 mg Oral Q8H Kyrie Lopez MD [START ON 06/25/2024] atorvaSTATin (Lipitor) tab 20 mg 20 mg Oral Q 1700 Kyrie Lopez MD [START ON 06/25/2024] buPROPion (Wellbutrin) tab 150 mg 150 mg Oral Daily 0600 Kyrie Lopez MD busPIRone (Buspar) tab 15 mg 15 mg Oral TID(AM/NOON/HS) Kyrie Lopez MD [START ON 06/25/2024] Enoxaparin (Lovenox) inj 40 mg 40 mg Subcutaneous Daily(AM) Kyrie Lopez MD Isolyte-S pH 7.4 infusion Intravenous Continuous Kyrie Lopez MD [START ON 06/25/2024] Lisinopril (Prinivil) tab 40 mg 40 mg Oral Daily(AM) Kyrie Lopez MD naloxone (Narcan) 0.4 MG/ML inj 0.08 mg 0.08 mg IV Push PRN Kyrie Lopez MD ondansetron ODT (Zofran) tab 4 mg 4 mg On Tongue Q6H PRN Kyrie Lopez MD Or ondansetron (Zofran) inj 4 mg 4 mg IV Push Q6H PRN Kyrie Lopez MD oxyCODONE (Oxy IR) tab 5 mg 5 mg Oral Q4H PRN Kyrie Lopez MD sodium chloride 0.9 % flush peripheral tyree 3 mL 3 mL IV Push Q8H Kyrie Lopez MD ALLERGIES: Allergies Bupropion, Abaloparatide, Teriparatide, and Hydrochlorothiazide ROS: ROS is negative unless otherwise states in HPI. PHYSICAL EXAMINATION: Most Recent Vital Signs: BP: 150 mmHg/83 mmHg (06/24/241912) Pulse: 89 (06/24/241912) Resp: Temp: 36.89 C (06/24/241912) Temp Summary: Temp Min: 36.9 C (98.4 F) Max: 36.9 C (98.4 F) SpO2: 97 % (06/24/241912) O2 flow rate: Supplemental O2 Delivery: Room Air, None (06/24/241929) Constitutional: no acute distress HEENT: normocephalic, atraumatic Eyes: sclera and conjunctiva normal CV: normal rate Chest: normal respiratory effort Abdomen: soft, diffuse TTP most severe in bilateral lower quadrants, no guarding or rebound , nondistended Skin: warm, dry, intact: Neuro: alert LABS: Labs reviewed as indicated below: None in records, will repeat IMAGING: No new results. IMPRESSION and PLAN: Adair Ramos is a 69 year old female with hx HTN, HLD, pituitary tumor, depression, anxiety, and osteoporosis who presents with SBO. Had GGC at OSH which did not reach bowel. Has since had a bowel movement. - Repeat KUB - isolyte at 75 ml/hr - NPO Except meds - NGT to LCS - Pain Regimen: Tylenol, oxy 5/10 PRN - Bowel Regimen: None - Dvt ppxx: SCDs and lovenox - Home meds: restarted as appropriate - Will continue to monitor, no urgent surgical intervention at this time [facility]focused[facility] After admission, patient has had a bowel movement. Symptoms was improved and she is having bowel movements regularly during hospitalization. She tolerated diet without any issue. Patient was discharged on 06/26 Operations & Procedures: none Complications: none significant SIGNIFICANT RESULTS: Vital Signs (last recorded): Most Recent Systolic BP: 141 mmHg (06/26/241045) Most Recent Diastolic BP: 82 mmHg (06/26/241045) Pulse: 84 (06/26/24 104) Resp: 16 (06/26/24 104) Most Recent Temperature: 36.56 C (06/26/241045) Weight: 51.8 kg (114 lb 2.5 oz) (06/24/241999) SpO2: 98 % (06/26/241045) Labs: CREATININE: Creatinine (see below for last three most recent values): Lab Results Component Value Date/Time CREAT 0.5 06/26/2024 07:10 AM CREAT 0.5 06/25/2024 07:55 AM CREAT 0.5 06/24/2024 10:00 PM CREAT 0.74 04/20/2024 11:25 AM CREAT 0.6 04/17/2024 10:53 AM CREAT 0.81 01/13/2024 09:40 AM BLOOD COUNT: WBC, Hgb, Platelets (see below for most recent value): Lab Results Component Value Date/Time WBC 4.06 06/26/2024 07:10 AM HGB 10.9 (L) 06/26/2024 07:10 AM PLT 210 06/26/2024 07:10 AM Imaging (focused): 06/24/2024 XR ABDOMEN IMPRESSION Gastric drainage tube terminates in the region of the gastric fundus. The side port projects over the area of the esophagogastric junction. Consider advancement by 5 cm. Nonobstructive bowel gas pattern. Enteric contrast reaches the rectum. Bilateral small pleural effusions. CONSULTS ORDERED: None REFERRING PHYSICIAN: REF: HANY MARIN PRIMARY CARE PROVIDER: PCP: Germán Felton MD [address] / [place] [phone] (office) [phone] (fax) Note: To contact a physician responsible for this patients hospital care, please call [employer] [phone]. Cosigned by Yvonne Duarte MD at 06/26/2024 6:19 PM EST documented in this encounter Discharge Instructions * Discharge Instr - AVS* Jasson Oneal CRNP - 06/25/2024 7:09 AM EST Discharge Date: 06/26/2024 You may call Doctor Apryl of the department of Emergency General Surgery at [phone] during business hours for any questions or test results. For after- hours emergencies call [phone] and have your doctor paged. The information below provides you with the instructions and the list of medications you need to betaking following discharge from the hospital. If you have any questions, please ask before leaving.Please carry this letter with you when you see your doctor in the clinic. If you have questions, you can reach us at the numbers above. Brief summary of your inpatient care: You were admitted to [facility] on 06/24/24 forsmall bowel obstruction. You had conservative management. You had adequate pain control, and tolerated a diet before discharge. Your primary diagnosis at discharge was small bowel obstruction. Your doctors during this hospitalization included: - Dr. Pink (Surgical Oncology) Inpatient test results pending: None Operations & Procedures: None Complications: none Advance Directive Documented: Advance Directive Does the Patient have an Advance Directive? Yes Diet: normal diet Activity: As tolerated Driving: You may resume driving tomorrow as tolerated . Date you may return to work or school: N/A See your primary care physician (Germán Felton MD) in 1 week(s) to recheck basic metabolic panel and phosphorus levels. Special Instructions: Call the Surgery office at [phone] if you have any questions or concerns or if you experience any of the following: - Elevated temperatures of 101.5 degrees or greater - Persistent nausea and vomiting - Follow up with Emergency General Surgery Clinic on 07/12/24. This will be a telephone follow up. You do not need to come to the clinic. --- documented in this encounter H&P Notes * Liang Jalloh MD - 06/24/2024 8:20 PM EST HISTORY AND PHYSICAL EXAMINATION - Trauma/Emergency Surgery [address] [address] Name: Adair Ramos [place] [facility] B[facility]/A Date: 06/24/2024 Time: 10:31 AM PRESENTING PROBLEM: SBO HISTORY OF PRESENT ILLNESS: Adair Ramos is a 69 year old, female with a history of HTN, HLD, pituitary tumor, depression, anxiety, and osteoporosis who was transferred from [facility] for concerns of small bowel obstruction. Shepresented to [facility] with abdominal pain and constipation starting 9 days ago. Imaging at [facility] demonstrated SBO. She had gastrografin which showed no contrast in the large bowel. Had NG tube placed . Reports vomiting starting on Wednesday. Presented to urgent care where she was told that symptoms were due to GI virus. Re-presented to [facility] for continued symptoms. States that she has had a small liquid bowel movement since receiving gastrografin, last BM prior to gastrografin was a few days. Distention has improved since NG tube placement. Not currently passing flatus. States that she had a prior SBO which she had surgery for, does not believe that she had a bowel resection at that time. PSH of arthroscopic rotator cuff repair 2014, back surgery, breast surgery to remove benign fibroidmasses x3, tendon repair of the hand, L inguinal hernia repair laparoscopic 2018, TMJ surgery 10/2023, and tonsillectomy 1982. HOSPITAL PROBLEM LIST: Active Problems: * No active hospital problems. * POA = Present On Admission PAST MEDICAL HISTORY: No past medical history on file. PAST SURGICAL HISTORY: Past Surgical History: Procedure Laterality Date CATARACT SURGERY,COMPLEX Bilateral 11/09/2022 Dr. Hartley COLONOSCOPY, DIAGNOSTIC (RECTUM) 01/27/2023 colitis / [facility] EGD, FLEXIBLE, DIAGNOSTIC 01/27/2023 normal bx / [facility] INJECT DX/THER SUBSTANCE INTERLAMINAR LUMBAR/SACRAL W IMAGE GUIDE 01/19/2019 INJECTION SPINE LUMBAR OR SACRAL performed by Bobby Newton, DO at OR [facility] INJECT DX/THER SUBSTANCE INTERLAMINAR LUMBAR/SACRAL W IMAGE GUIDE 12/28/2019 INJECTION SPINE LUMBAR OR SACRAL performed by Bobby Newton, DO at [facility] INJECTION LUMBAR/SACRAL 08/19/2015 INJECTION SPINE LUMBAR OR SACRAL performed by Bobby Guerras, DO at [facility] L-/S-SPINE PARAVERTEBRAL FACET INJ,1 LEVEL 10/09/2019 L-/S-SPINE PARAVERTEBRAL FACET INJ, 1 LEVEL performed by Bobby Peters Cousins, DO at OR [facility] MISCELLANEOUS ORDER ([facility] ONLY) hand surgery OTHER shoulder OTHER lumpectomy OTHER (INFORMATION) ACT [address] Kinney (12-14-22) FAMILY HISTORY: Family History Problem Relation Name Age of Onset Colon polyps Mother Eye Problems Grandmother (Maternal) SOCIAL HISTORY: Social History Tobacco Use Smoking status: Never Smokeless tobacco: Never Substance Use Topics Alcohol use: Yes Comment: occasional, wine Drug use: Never CURRENT HOSPITAL MEDICATIONS: Note that completed medications (per the MAR) continue to display for 24 hours. Ordered medicationsto be given in the future also display. Current Facility-Administered Medications Medication Dose Route Frequency Provider Acetaminophen (Tylenol) tab 975 mg 975 mg Oral Q8H Kyrie Lopez MD [START ON 06/25/2024] atorvaSTATin (Lipitor) tab 20 mg 20 mg Oral Q 1700 Kyrie Lopez MD [START ON 06/25/2024] buPROPion (Wellbutrin) tab 150 mg 150 mg Oral Daily 0600 Kyrie Lopez MD busPIRone (Buspar) tab 15 mg 15 mg Oral TID(AM/NOON/HS) Kyrie Lopez MD [START ON 06/25/2024] Enoxaparin (Lovenox) inj 40 mg 40 mg Subcutaneous Daily(AM) Kyrie Lopez MD Isolyte-S pH 7.4 infusion Intravenous Continuous Kyrie Lopez MD [START ON 06/25/2024] Lisinopril (Prinivil) tab 40 mg 40 mg Oral Daily(AM) Kyrie Lopez MD naloxone (Narcan) 0.4 MG/ML inj 0.08 mg 0.08 mg IV Push PRN Kyrie Lopez MD ondansetron ODT (Zofran) tab 4 mg 4 mg On Tongue Q6H PRN Kyrie Lopez MD Or ondansetron (Zofran) inj 4 mg 4 mg IV Push Q6H PRN Kyrie Lopez MD oxyCODONE (Oxy IR) tab 5 mg 5 mg Oral Q4H PRN Kyrie Lopez MD sodium chloride 0.9 % flush peripheral tyree 3 mL 3 mL IV Push Q8H Kyrie Lopez MD ALLERGIES: Bupropion, Abaloparatide, Teriparatide, and Hydrochlorothiazide ROS: ROS is negative unless otherwise states in HPI. PHYSICAL EXAMINATION: Most Recent Vital Signs: BP: 150 mmHg/83 mmHg (06/24/241912) Pulse: 89 (06/24/241912) Resp: Temp: 36.89 C (06/24/241912) Temp Summary: Temp Min: 36.9 C (98.4 F) Max: 36.9 C (98.4 F) SpO2: 97 % (06/24/241912) O2 flow rate: Supplemental O2 Delivery: Room Air, None (06/24/241929) Constitutional: no acute distress HEENT: normocephalic, atraumatic Eyes: sclera and conjunctiva normal CV: normal rate Chest: normal respiratory effort Abdomen: soft, diffuse TTP most severe in bilateral lower quadrants, no guarding or rebound , nondistended Skin: warm, dry, intact: Neuro: alert LABS: Labs reviewed as indicated below: None in records, will repeat IMAGING: No new results. IMPRESSION and PLAN: Adair Ramos is a 69 year old female with hx HTN, HLD, pituitary tumor, depression, anxiety, and osteoporosis who presents with SBO. Had GGC at OSH which did not reach bowel. Has since had a bowel movement. - Repeat KUB - isolyte at 75 ml/hr - NPO Except meds - NGT to LCS - Pain Regimen: Tylenol, oxy 5/10 PRN - Bowel Regimen: None - Dvt ppxx: SCDs and lovenox - Home meds: restarted as appropriate - Will continue to monitor, no urgent surgical intervention at this time Patient seen and will be discussed with Dr. Apryl Jalloh MD General Surgery PGY-1 [facility] Cosigned by Sampson Pink MD at 06/25/2024 8:16 AM EST Associated attestation - Sampson Pink MD - 06/25/2024 8:16 AM EST I saw and evaluated the patient 06/24/2024. I have reviewed the resident/fellow physician note and agree. Admit Patient with some bowel function documented in this encounter Miscellaneous Notes * Diagnostic Clarification - Sampson Pink MD - 06/26/2024 11:58 AM EST The patient has been diagnosed with Hypokalemia. * Ancillary Progress Note - Farideh Goldsmith RN - 06/26/2024 11:18 AM EST CARE MANAGEMENT - ADULT DISCHARGE NOTE [facility] [address] Name: Adair Ramos Location: [facility] B6/ Date: 06/26/2024 Time: 11:19 AM The following coordination of care and discharge plan has been coordinated with the care team, patient, family and/or caregiver according to the patients needs and preferences. Discharge Discharge Second Notice Important Message from Medicare delivered: Not Applicable (06.25.24) (06/26/24 111) Was Caregiver/Family/Facility contacted regarding discharge: Yes (06/26/24 111) Discharge Transportation: Family/Friends drive (06/26/24 1117) Date of scheduled discharge transportation: 06/26/24 (06/26/24 1117) Patient declined post-hospital transition of care recommendation: N/A (06/26/24 111) Final Discharge Plan (Complete only at time of Discharge): Home - Self Care (06/26/24 1117) Destination - Admitted Since 06/24/2024 No services have been selected for the patient. Narrative: Home no needs * Progress Notes - Non-Billable - Jasson Oneal CRNP - 06/26/2024 9:38 AM EST PROGRESS NOTE - General Surgery Discharge Transition [facility] [address] Name: Adair Ramos Location: [facility] B630/A Date: 06/26/2024 Time: 9:38 AM Admitting Diagnosis: SBO PROCEDURE: none Estimated Discharge Date: 06/26/2024 Subjective: Pt was resting in bed comfortably. Tolerated breakfast, denied nausea/vomiting. Abd pain controlled. Ambulating. Voiding without difficulty. Had BM. Lives 3 hrs away, wants to go home before dark. There is no [facility] near her. Review of Systems: Constitutional: (-) fever chills sweats or weight loss Abdominal/GI: (-) negative: no pain, heartburn, dysphagia, bleeding, change in bowel habits, nauseaor vomiting Most Recent Vital Signs: BP: 141 mmHg/82 mmHg (06/26/24615) Pulse: 94 (06/26/24615) Resp: 16 (06/26/24615) Temp: 36.72 C (06/26/24615) Temp Summary: Temp Min: 36.4 C (97.5 F) Max: 37 C (98.6 F) SpO2: 96 % (06/26/24615) O2 flow rate: Supplemental O2 Delivery: Room Air, None (06/26/24615) Constitutional: no acute distress Abdomen: soft, no tenderness, nondistended Lab and Radiology: Pending results: No results pending Discharge Preparation: Consultation: No pending consultations to be completed Discharge Medication Plans: Pain Management: none DVT Needs: None GI: None Antibiotics: None Stool Softener: None Anticipated Diet at Discharge: Regular Disposition / Needs Post Discharge: Home Return Appointments Planned: PCP in 1 weeks and EGS 2 weeks telephone f/u Advised pt to see PCP in 1 week to recheck BMP and phosphorus. Dc home after pt receives po and iv phosphorus. Reviewed d/c instructions with patient and answered questions patient had. Patient showed understanding and agreed to call if there is any concern. FANG Connell 06/26/2024 9:39 AM * Progress Notes - Post-Op Global - Richar Ferrera MD - 06/26/2024 5:10 AM EST PROGRESS NOTE - Trauma/Emergency Surgery [facility] [address] Name: Adair Ramos Location: [facility] B630 Date: 06/26/2024 Time: 5:10 AM DIAGNOSIS: SBO PROCEDURE: None this admission SUBJECTIVE: NAEON. Pain is well-controlled. No n/v, chest pain, or shortness of breath. Having bowel movements.Tolerating clear liquids. Advanced to regular diet today morning. OBJECTIVE: Physical Exam: BP: 138 mmHg/71 mmHg (06/26/24309) Pulse: 89 (06/26/24309) Resp: 16 (06/26/24309) Temp: 36.78 C (06/26/24309) Temp Summary: Temp Min: 36.3 C (97.3 F) Max: 37 C (98.6 F) SpO2: 96 % (06/26/24309) O2 flow rate: Supplemental O2 Delivery: Room Air, None (06/26/24309) Constitutional: no acute distress, appropriate mood HEENT: normocephalic, atraumatic, sclera and conjunctiva normal, trachea midline, NGT in place CV: warm and well perfused Chest: symmetric and normal respiratory effort Abdomen: soft, non distended, no guarding or rebound. Appropriately tender to palpation Extremities: no edema, no cyanosis Skin: warm, dry Neuro: alert, conversant, motor function is grossly intact LABS: Labs reviewed as indicated below: AM labs pending CBC Lab results within last 7 days (see chart for full results) Units 06/25/24 0755 06/24/24 2200 WBC K/uL 6.15 5.29 HGB g/dL 12.0 11.9* HCT % 35.1* 35.6* PLT K/uL 227 218 BMP Lab results within last 7 days (see chart for full results) Units 06/25/24 0755 06/24/24 2200 SODIUM mmol/L 136 137 POTASSIUM mmol/L 3.1* 3.4* CHLORIDE mmol/L 95* 97* CO2 mmol/L 24 24 BUN mg/dL 16 21* CREATININE mg/dL 0.5 0.5 GLUCOSE mg/dL 87 101 Ca, Mg, Phos Lab results within last 7 days (see chart for full results) Units 06/25/24 0755 06/24/24 2200 CALCIUM mg/dL 8.5 8.6 Magnesium mg/dL 2.2 2.1 Phosphorus mg/dL 2.0* 2.6 Hepatic Function Panel No results in the last 7 days - inpatent use only Lipase No results in the last 7 days - inpatent use only Troponins No results in the last 7 days - inpatent use only Coags No results in the last 7 days - inpatent use only Lactic acid No results in the last 7 days - inpatent use only Arterial Blood Gas No results in the last 7 days - inpatent use only IMAGING: No imaging results in the last 24 hours IMPRESSION: Active Problems: Small bowel obstruction (HCC) Resolved Problems: * No resolved hospital problems. * Adair Ramos is a 69 year old female with hx HTN, HLD, pituitary tumor, depression, anxiety, and osteoporosis who presents with SBO. Had GGC at OSH which did not reach bowel. Has since had a bowel movement. Her stomach continues to feel better and she is having bowel movements at this time. -Patient will discharge today as long as regular diet is well tolerated - Pain Regimen: Tylenol, oxy 5/10 PRN - Bowel Regimen: None - Dvt ppxx: SCDs and lovenox - Home meds: restarted as appropriate - Will continue to monitor, no urgent surgical intervention at this time Dipos: DC today. Patient seen and will be discussed with Dr. Felicia Ferrera MD Vascular Surgery PGY1 [facility] Cosigned by Yvonne Duarte MD at 06/26/2024 3:58 PM EST Associated attestation - Yvonne Duarte MD - 06/26/2024 3:58 PM EST I saw and evaluated the patient. I have reviewed the trainee note. I have reviewed and independently interpreted the history, physical, chart, labs, and imaging. 69 yo admitted with an SBO managed with NGT decompression. Now has return of bowel function. Tolerated breakfast. Abdomen soft, nondistended, nontender. Denies nausea/vomiting. If tolerates lunch then discharge late this afternoon. Discharge Time: 33 minutes Yvonne Duarte MD, FACS Trauma, Emergency General Surgery, and Critical Care * Ancillary Progress Note - Rip Castro RN - 06/25/2024 10:34 AM EST CARE MANAGEMENT - ADULT INITIAL SCREENING [facility] [address] Name: Adair Ramos [place]: [facility] B630/A Date: 06/25/2024 Time: 10:34 AM Discussed patient with the interdisciplinary care team. This Fish Receiver performed a chart review to complete admission screen and assessed needs for transition planning. The client care manager role and services were explained and emotional support was provided. Chief Complaint: No chief complaint on file. Prior Living Arrangements What was your living situation prior to admission/observation?: With Spouse (06/25/24 1000) History of falling: No (06/25/24 0800) Prior Level of Functioning Describe the patient's ability prior to admission/observation to perform ADLs: Performs independently (06/25/24206) Describe the patient's mobility status prior to admission: Patient ambulates independently (06/25/24206) Patient uses assistive device: No (06/25/24206) Caregiver Information Emergency Contacts None on File Other Contacts Name Relation Home Work Mobile Rajesh Ramos Spouse [phone] Bakari Romole & Alex Adult Child [phone] Lives with spouse and was independent with ADL's. Denies rehab/SNF stays or home health in the pastand used no DME for ambulation prior to admission. CM will continue to follow should discharge needs arise. Risk Stratification/Psychosocial/Care Gaps Readmission Risk Score: 8.22 (06/25/24 0802) AM-PAC Score With Stairs : 24 (06/25/24 0700) Prior to Admission Services Services Prior to Admission AUTOMOTIVE PARTS PERSON Services (Services received within the last 30 days with exception, Psych within last two years): N/A (06/25/24 1000) [place] Dept. of Aging (PDA) Waiver Program: N/A (06/25/24 1000) [employer]ERSON Transportation (Services received within the last 30 days): Family/Friends Personal Vehicle (06/25/24 1000) Outpatient Fish Receiver: No care telesales team leader to display Patient/Family Expectations: Return home For further screening information, please refer to the Care Management flow document. * Care Plan - Marj Jamison RN - 06/25/2024 8:12 AM EST Problem: Actual & Potential for Falls Goal: Patient will remain free of falls. Outcome: Progressing Clinical Goal(s): patient will remain free of falls this shift. (06/25/24 0800) Possible barriers to meeting goal(s)/advancing plan of care: hospitalization, admitting diagnosis Stability of the patient: Moderately stable - low risk of patient condition declining or worsening Summary regarding today's goal(s): Met: Patient remained free of falls this shift. Recommendations: hourly rounds, call cavazos within reach, fall precautions * Progress Notes - Post-Op Alecia Perera DO - 06/25/2024 6:27 AM EST PROGRESS NOTE - Trauma/Emergency Surgery [facility] [address] Name: Adair Ramos Location: [facility] B[facility] Date: 06/25/2024 Time: 6:28 AM DIAGNOSIS: SBO PROCEDURE: None this admission SUBJECTIVE: NAEON. Pain is well-controlled. No n/v, chest pain, or shortness of breath. Having bowel movements. OBJECTIVE: Physical Exam: BP: 132 mmHg/77 mmHg (06/25/24620) Pulse: 87 (06/25/24620) Resp: 16 (06/25/24620) Temp: 36.28 C (06/25/24620) Temp Summary: Temp Min: 36.3 C (97.3 F) Max: 37 C (98.6 F) SpO2: 97 % (06/25/24620) O2 flow rate: Supplemental O2 Delivery: Room Air, None (06/25/24620) Constitutional: no acute distress, appropriate mood HEENT: normocephalic, atraumatic, sclera and conjunctiva normal, trachea midline, NGT in place CV: warm and well perfused Chest: symmetric and normal respiratory effort Abdomen: soft, non distended, no guarding or rebound. Appropriately tender to palpation Extremities: no edema, no cyanosis Skin: warm, dry Neuro: alert, conversant, motor function is grossly intact LABS: Labs reviewed as indicated below: AM labs pending CBC Lab results within last 7 days (see chart for full results) Units 06/24/24 2200 WBC K/uL 5.29 HGB g/dL 11.9* HCT % 35.6* PLT K/uL 218 BMP Lab results within last 7 days (see chart for full results) Units 06/24/24 2200 SODIUM mmol/L 137 POTASSIUM mmol/L 3.4* CHLORIDE mmol/L 97* CO2 mmol/L 24 BUN mg/dL 21* CREATININE mg/dL 0.5 GLUCOSE mg/dL 101 Ca, Mg, Phos Lab results within last 7 days (see chart for full results) Units 06/24/24 2200 CALCIUM mg/dL 8.6 Magnesium mg/dL 2.1 Phosphorus mg/dL 2.6 Hepatic Function Panel No results in the last 7 days - inpatent use only Lipase No results in the last 7 days - inpatent use only Troponins No results in the last 7 days - inpatent use only Coags No results in the last 7 days - inpatent use only Lactic acid No results in the last 7 days - inpatent use only Arterial Blood Gas No results in the last 7 days - inpatent use only IMAGING: XR ABDOMEN 1 VIEW Result Date: 06/24/2024 IMPRESSION Gastric drainage tube terminates in the region of the gastric fundus. The side port projects over the area of the esophagogastric junction. Consider advancement by 5 cm. Nonobstructive bowel gas pattern. Enteric contrast reaches the rectum. Bilateral small pleural effusions. The information above was relayed directly by me by Tigertext to KYRIE LOPEZ on 06/24/2024 at 9:19 pm IMPRESSION: Active Problems: Small bowel obstruction (HCC) Resolved Problems: * No resolved hospital problems. * Adair Ramos is a 69 year old female with hx HTN, HLD, pituitary tumor, depression, anxiety, and osteoporosis who presents with SBO. Had GGC at OSH which did not reach bowel. Has since had a bowel movement. - isolyte at 75 ml/hr DC if diet adv and patient tolerates PO - Likely DC NGT - Adv to clears if DC NGT - Pain Regimen: Tylenol, oxy 5/10 PRN - Bowel Regimen: None - Dvt ppxx: SCDs and lovenox - Home meds: restarted as appropriate - Will continue to monitor, no urgent surgical intervention at this time Dipos: medsurg, anticipate DC soon Patient seen and will be discussed with Dr. Apryl Art DO Vascular Surgery Resident, PGY2 [facility] GENERAL SURGERY 06/25/2024 Cosigned by Sampson Pink MD at 06/25/2024 8:25 AM EST Associated attestation - Sampson Pink MD - 06/25/2024 8:25 AM EST I saw and evaluated the patient today. I have reviewed the resident/fellow physician note and agree. DC NGT Clears * Ancillary Progress Note - Nidia Soriano RRT - 06/24/2024 9:08 PM EST PATIENT DRIVEN PROTOCOL - Respiratory Care Services [address] [address] Name: Adair Ramos Location: [facility] B630[facility]A Date: 06/24/2024 Time: 9:08 PM Patient Driven Protocol Summary: Initial evaluation performed. This Treatment Plan and medications will be reviewed by the Primary Care Team for any contraindications. Respiratory Care Treatment Plan Pulmonary Volume Expansion Therapy: Incentive Spirometry PRN to prevent or treat alveolar consolidation and atelectasis. . The patient will be re-evaluated: No re-evaluation needed. Indications for treatment met. The Triage Level is: (Assessment Score = 0 - 5) Level 5. Triage Level Definitions: Level 1 Severe Respiratory/Airway Compromise Level 2 Moderate Respiratory/Airway Compromise or high risk for pulmonary complications Level 3 Mild Respiratory/Airway Compromise or moderate risk for pulmonary complications Level 4 Episodic Respiratory/Airway Compromise or low risk for pulmonary complications Level 5 No Respiratory/Airway Compromise Triage 1 Triage 2 Triage 3 Triage 4 Triage 5 greater than 20 16 - 20 11 - 15 6 - 10 0 - 5 Medical Record Assessment Clinical Findings Pulmonary Status: 0 - No History Surgical Status: 1 - General Surgery Chest X-Ray: 0 - Not Performed or performed greater than 3 days ago Assessment Score: 1 Patient Assessment Clinical Findings Respiratory Pattern: 0 - RR 12 - 20; Patient only gets breathless with strenuous exercise. Breath Sounds: 0 - Clear to auscultation Cough Effectiveness: 0 - Strong non-productive Sputum Production: 0 - No sputum production Level of Activity: 1 - Ambulatory with assist O2 needed to keep SpO2 greater than or equal to 92%: 0 - Room Air Assessment Score: 1 Total Assessment Score: 2 Breath Sounds: Inspiratory and expiratory clear bilaterally.. Cough and Sputum: An effective cough produced no sputum... CXR: none. Vital Signs: Pulse: 89 (06/24/241912) Temp: 36.9 C (98.4 F) (06/24/241912) BP: 150/83 (06/24/241912) SpO2: 97 % (06/24/241912) PFT: Minimal Predicted IC: 0.855 L. Inspiratory capacity: 2.5 L. Primary Service: Surgery Falls. Admitting Diagnosis: SBO (small bowel obstruction) (HCC) [K56.609] Small bowel obstruction (HCC) [K56.609] Pulmonary Diagnosis: none . Prescriptions/Home Medications/Durable Medical Equipment: none. Recommended New home medications/durable medical equipment/outpatient pulmonary/sleep referral n/a. documented in this encounter Plan of Treatment Upcoming Encounters Date Type Department Care Team (Late st Contact Info) Description 07/12/2024 3:00 PM EST Telemedicine General Surgery, [facility] [address] [place] [address] Clinic, Emergency General Surgery [address] [place] [address] 09/11/2024 11:00 AM EST Office Visit Ophthalmology, [facility] [address] [place] [address] David Kinney DO [address] [place] [address] Health Maintenance Due Date Last Done Comments [...] Procedure Name Priority Date/Time Associated Diagnosis Comments BASIC METABOLIC PANEL Routine 06/26/2024 7:10 AM EST PHOSPHORUS Routine 06/26/2024 7:10 AM EST CBC Routine 06/26/2024 7:10 AM EST MAGNESIUM Routine 06/26/2024 7:10 AM EST BASIC METABOLIC PANEL Routine 06/25/2024 7:55 AM EST PHOSPHORUS Routine 06/25/2024 7:55 AM EST CBC Routine 06/25/2024 7:55 AM EST MAGNESIUM Routine 06/25/2024 7:55 AM EST BASIC METABOLIC PANEL Routine 06/24/2024 10:00 PM EST ABO/RH STAT 06/24/2024 10:00 PM EST TYPE AND SCREEN STAT 06/24/2024 10:00 PM EST PHOSPHORUS Routine 06/24/2024 10:00 PM EST CBC Routine 06/24/2024 10:00 PM EST MAGNESIUM Routine 06/24/2024 10:00 PM EST XR ABDOMEN 1 VIEW STAT 06/24/2024 9:1 1 PM EST documented in this encounter Results * (ABNORMAL) PHOSPHORUS (06/26/2024 7:10 AM EST) Phosphorus 1.7(L) 2.5 - 4.8 mg/dL 06/26/2024 7:53 AM EST LABORATORY [facility] Blood Venous blood specimen / Unknown Venipuncture / Unknown 06/26/2024 7:10 AM EST 06/26/2024 7:25 AM EST us Kyrie Lopez MD LAB BLOOD ORDERABLES Final Resul t Performing Organization Address City/[facility]/ZIP Co de Phone Number LAB[facility]ATORY [facility] [address] [place] [address] * MAGNESIUM (06/26/2024 7:10 AM EST) Magnesium 1.8 1.5 - 2.6 mg/dL 06/26/2024 7:53 AM EST [facility] Blood Venous blood specimen / Unknown Venipuncture / Unknown 06/26/2024 7:10 AM EST 06/26/2024 7:25 AM EST us Kyrie Lopez MD LAB BLOOD ORDERABLES Final Resul t Performing Organization Address [facility] de Phone Number [facility] [address] [place] [address] * (ABNORMAL) CBC (06/26/2024 7:10 AM EST) WBC 4.06 4.00 - 10.80 K/uL 06/26/2024 7:35 AM EST [facility] RBC 3.29 3.85 - 5.15 M/uL 06/26/2024 7:35 AM EST [facility] HGB 10.9(L) 12.0 - 15.3 g/dL 06/26/2024 7:35 AM EST [facility] HCT 31.8(L) 36.0 - 45.2 % 06/26/2024 7:35 AM EST [facility] MCV 96.7 81.5 - 97.5 fL 06/26/2024 7:35 AM EST [facility] MCH 33.1 27.0 - 34.0 pg 06/26/2024 7:35 AM EST [facility] MCHC 34.3 32.0 - 36.0 g/dL 06/26/2024 7:35 AM EST [facility] RDW 13.2 11.5 - 15.5 % 06/26/2024 7:35 AM EST [facility] PLT 210 140 - 400 K/uL 06/26/2024 7:35 AM EST [facility] MPV 9.3 6.6 - 11.1 fL 06/26/2024 7:35 AM EST [facility] nRBCs 0 <=0 /100 WBCs 06/26/2024 7:35 AM EST [facility] Blood Venous blood specimen / Unknown Venipuncture / Unknown 06/26/2024 7:10 AM EST 06/26/2024 7:24 AM EST us Kyrie Lopez MD LAB BLOOD ORDERABLES Final Resul t LABORATORY [facility] [address] [place] [address] * (ABNORMAL) BASIC METABOLIC PANEL (06/26/2024 7:10 AM EST) BUN 7 6 - 20 mg/dL 06/26/2024 7:53 AM EST [facility] CREATININE 0.5 0.5 - 1.0 mg/dL 06/26/2024 7:53 AM EST [facility] EGFR >90 >=60 mL/min 06/26/2024 7:53 AM EST [facility] Comment:eGFR is calculated b ased on the CKD-EPI 2020 equation. SODIUM 130(L) 135 - 146 mmol/L 06/26/2024 7:53 AM EST [facility] POTASSIUM 3.1(L) 3.5 - 5.1 mmol/L 06/26/2024 7:53 AM EST [facility] CHLORIDE 96(L) 98 - 107 mmol/L 06/26/2024 7:53 AM EST [facility] CO2 25 22 - 32 mmol/L 06/26/2024 7:53 AM EST [facility] ANION GAP 9 7 - 15 mmol/L 06/26/2024 7:53 AM EST [facility] GLUCOSE 113 70 - 120 mg/dL 06/26/2024 7:53 AM EST [facility] CALCIUM 7.9(L) 8.4 - 10.2 mg/dL 06/26/2024 7:53 AM EST [facility] Blood Venous blood specimen / Unknown Venipuncture / Unknown 06/26/2024 7:10 AM EST 06/26/2024 7:25 AM EST us Kyrie Lopez MD LAB BLOOD ORDERABLES Final Resul t Performing Organization Address [facility] de Phone Number LABORATORY [facility] [address] [place] [address] * (ABNORMAL) PHOSPHORUS (06/25/2024 7:55 AM EST) Phosphorus 2.0(L) 2.5 - 4.8 mg/dL 06/25/2024 8:53 AM EST [facility] Blood Venous blood specimen / Unknown Venipuncture / Unknown 06/25/2024 7:55 AM EST 06/25/2024 8:23 AM EST us Kyrie Lopez MD LAB BLOOD ORDERABLES Final Resul t Performing Organization Address [facility] Phone Number LABORATORY [facility] [address] [place] [address] * MAGNESIUM (06/25/2024 7:55 AM EST) Magnesium 2.2 1.5 - 2.6 mg/dL 06/25/2024 8:53 AM EST [facility] Blood Venous blood specimen / Unknown Venipuncture / Unknown 06/25/2024 7:55 AM EST 06/25/2024 8:23 AM EST us Kyrie Lopez MD LAB BLOOD ORDERABLES Final Resul t Performing Organization Address [facility] de Phone Number LABORATORY [facility] [address] [place] [address] * (ABNORMAL) CBC (06/25/2024 7:55 AM EST) WBC 6.15 4.00 - 10.80 K/uL 06/25/2024 8:33 AM EST [facility] RBC 3.58 3.85 - 5.15 M/uL 06/25/2024 8:33 AM EST [facility] HGB 12.0 12.0 - 15.3 g/dL 06/25/2024 8:33 AM EST [facility] HCT 35.1(L) 36.0 - 45.2 % 06/25/2024 8:33 AM EST [facility] MCV 98.0 81.5 - 97.5 fL 06/25/2024 8:33 AM EST [facility] MCH 33.5 27.0 - 34.0 pg 06/25/2024 8:33 AM EST [facility] MCHC 34.2 32.0 - 36.0 g/dL 06/25/2024 8:33 AM EST [facility] RDW 13.4 11.5 - 15.5 % 06/25/2024 8:33 AM EST [facility] PLT 227 140 - 400 K/uL 06/25/2024 8:33 AM EST [facility] MPV 9.4 6.6 - 11.1 fL 06/25/2024 8:33 AM EST [facility] nRBCs 0 <=0 /100 WBCs 06/25/2024 8:33 AM EST [facility] Blood Venous blood specimen / Unknown Venipuncture / Unknown 06/25/2024 7:55 AM EST 06/25/2024 8:23 AM EST us Kyrie Lopez MD LAB BLOOD ORDERABLES Final Resul t LABORATORY [facility] [address] [place] [address] * (ABNORMAL) BASIC METABOLIC PANEL (06/25/2024 7:55 AM EST) BUN 16 6 - 20 mg/dL 06/25/2024 8:53 AM EST [facility] CREATININE 0.5 0.5 - 1.0 mg/dL 06/25/2024 8:53 AM EST [facility] EGFR >90 >=60 mL/min 06/25/2024 8:53 AM EST [facility] Comment:eGFR is calculated b ased on the CKD-EPI 2020 equation. SODIUM 136 135 - 146 mmol/L 06/25/2024 8:53 AM EST [facility] POTASSIUM 3.1(L) 3.5 - 5.1 mmol/L 06/25/2024 8:53 AM EST [facility] CHLORIDE 95(L) 98 - 107 mmol/L 06/25/2024 8:53 AM EST [facility] CO2 24 22 - 32 mmol/L 06/25/2024 8:53 AM EST [facility] ANION GAP 17(H) 7 - 15 mmol/L 06/25/2024 8:53 AM EST [facility] GLUCOSE 87 70 - 120 mg/dL 06/25/2024 8:53 AM EST [facility] CALCIUM 8.5 8.4 - 10.2 mg/dL 06/25/2024 8:53 AM EST LABORATORY C Blood Venous blood specimen / Unknown Venipuncture / Unknown 06/25/2024 7:55 AM EST 06/25/2024 8:23 AM EST us Kyrie Lopez MD LAB BLOOD ORDERABLES Final Resul t Performing Organization Address City/[facility]/ZIP Co de Phone Number LABORATORY [facility] [address] [place] [address] * ABO/RH (06/24/2024 10:00 PM EST) ABO B 06/24/2024 10:43 PM EST LABOR[facility]ORY [facility]OD [facility] Rh Positive 06/24/2024 10:43 PM EST LAB[facility]ORY [facility] Blood Venous blood specimen / Unknown Venipuncture / Unknown 06/24/2024 10:00 PM EST 06/24/2024 10:05 PM EST us Liang Jalloh MD LAB BLOOD BANK TEST ORDERABLES Final Result LABORATORY [facility] B[facility]OD B[facility] [address] [place] [address] * PHOSPHORUS (06/24/2024 10:00 PM EST) Phosphorus 2.6 2.5 - 4.8 mg/dL 06/24/2024 10:33 PM EST [facility] Blood Venous blood specimen / Unknown Venipuncture / Unknown 06/24/2024 10:00 PM EST 06/24/2024 10:05 PM EST us Liang Jalloh MD LAB BLOOD ORDERABLES Final Res ult Performing Organization Address City/[facility]/ZIP Co de Phone Number LAB[facility]ATORY [facility] [address] [place] [address] * TYPE AND SCREEN (06/24/2024 10:00 PM EST) ABO B 06/24/2024 10:42 PM EST LAB[facility]ORY [facility] Rh Positive 06/24/2024 10:42 PM EST LAB[facility] Red Blood Cell Antibody Screen Negative 06/24/2024 10:42 PM EST LAB[facility]ORY [facility] Specimen Expiration Date 06/27/2024 23:59 06/24/2024 10:42 PM EST LAB[facility]ORY [facility] Blood Venous blood specimen / Unknown Venipuncture / Unknown 06/24/2024 10:00 PM EST 06/24/2024 10:05 PM EST Liang Jalloh MD LAB BLOOD BANK TEST ORDERABLES Final Result Performing Organization Address [facility] de Phone Number LABORATORY [facility] B[facility]OD [facility] [address] [place] [address] * MAGNESIUM (06/24/2024 10:00 PM EST) Pathologist [facility] Magnesium 2.1 1.5 - 2.6 mg/dL 06/24/2024 10:33 PM EST [facility] Blood Venous blood specimen / Unknown Venipuncture / Unknown 06/24/2024 10:00 PM EST 06/24/2024 10:05 PM EST us Liang Jalloh MD LAB BLOOD ORDERABLES Final Res ult Performing Organization Address City/[facility]/ZIP Co de Phone Number LAB[facility]ORY [facility] [address] [place] [address] * (ABNORMAL) BASIC METABOLIC PANEL (06/24/2024 10:00 PM EST) BUN 21(H) 6 - 20 mg/dL 06/24/2024 10:33 PM EST LAB[facility] CREATININE 0.5 0.5 - 1.0 mg/dL 06/24/2024 10:33 PM EST [facility] EGFR >90 >=60 mL/min 06/24/2024 10:33 PM EST [facility] Comment:eGFR is calculated b ased on the CKD-EPI 2020 equation. SODIUM 137 135 - 146 mmol/L 06/24/2024 10:33 PM EST [facility] POTASSIUM 3.4(L) 3.5 - 5.1 mmol/L 06/24/2024 10:33 PM EST [facility] CHLORIDE 97(L) 98 - 107 mmol/L 06/24/2024 10:33 PM EST [facility] CO2 24 22 - 32 mmol/L 06/24/2024 10:33 PM EST [facility] ANION GAP 16(H) 7 - 15 mmol/L 06/24/2024 10:33 PM EST [facility] GLUCOSE 101 70 - 120 mg/dL 06/24/2024 10:33 PM EST [facility] CALCIUM 8.6 8.4 - 10.2 mg/dL 06/24/2024 10:33 PM EST [facility] Blood Venous blood specimen / Unknown Venipuncture / Unknown 06/24/2024 10:00 PM EST 06/24/2024 10:05 PM EST us Liang Jalloh MD LAB BLOOD ORDERABLES Final Res ult [facility] [address] [place] [address] * (ABNORMAL) CBC (06/24/2024 10:00 PM EST) WBC 5.29 4.00 - 10.80 K/uL 06/24/2024 10:15 PM EST [facility] RBC 3.60 3.85 - 5.15 M/uL 06/24/2024 10:15 PM EST [facility] HGB 11.9(L) 12.0 - 15.3 g/dL 06/24/2024 10:15 PM EST [facility] HCT 35.6(L) 36.0 - 45.2 % 06/24/2024 10:15 PM EST [facility] MCV 98.9 81.5 - 97.5 fL 06/24/2024 10:15 PM EST [facility] MCH 33.1 27.0 - 34.0 pg 06/24/2024 10:15 PM EST LAB[facility] MCHC 33.4 32.0 - 36.0 g/dL 06/24/2024 10:15 PM EST [facility] RDW 13.3 11.5 - 15.5 % 06/24/2024 10:15 PM EST [facility] PLT 218 140 - 400 K/uL 06/24/2024 10:15 PM EST LAB[facility] MPV 9.0 6.6 - 11.1 fL 06/24/2024 10:15 PM EST [facility] nRBCs 0 <=0 /100 WBCs 06/24/2024 10:15 PM EST [facility] Blood Venous blood specimen / Unknown Venipuncture / Unknown 06/24/2024 10:00 PM EST 06/24/2024 10:06 PM EST us Liang Jalloh MD LAB BLOOD ORDERABLES Final Res ult Performing Organization Address City/State/[facility] Co de Phone Number LABORATORY [facility] [address] [place] [address] * XR ABDOMEN 1 VIEW (06/24/2024 9:11 PM EST) Anatomical Region Laterality Modality Abdomen, Pelvis Digital Radiogra phy 06/24/2024 9:23 PM EST Impressions 06/24/2024 9:21 PM EST IMPRESSION Gastric drainage tube terminates in the region of the gastric fundus. The side port projects over the area of the esophagogastric junction. Consider advancement by 5 cm. Nonobstructive bowel gas pattern. Enteric contrast reaches the rectum. Bilateral small pleural effusions. The information above was relayed directly by me by [employer] to KYRIE LOPEZ on 06/24/2024 at 9:19 pm Narrative 06/24/2024 9:21 PM EST EXAM XR ABDOMEN 1 VIEW-06/24/2024 9:11 pm HISTORY confirm NGT placement, f/u contrast in small bowel TECHNIQUE Portable supine view of the abdomen COMPARISON None. FINDINGS Gastric drainage tube terminates over the gastric fundus. The side port is at the level of the esophagogastric junction. Consider advancement by 5 cm. There are non-dilated loops of small and large bowel containing gas and stool. There are no dilated loops to suggest ileus or obstruction. Enteric contrast reaches the rectum. Suboptimal assessment for pneumoperitoneum with supine technique. Bilateral pleural effusions, right greater than left. Spine fusion hardware. Degenerative changes of spine. Procedure Note Miguelito Rivera MD - 06/24/2024 EXAM XR ABDOMEN 1 VIEW-06/24/2024 9:11 pm HISTORY confirm NGT placement, f/u contrast in small bowel TECHNIQUE Portable supine view of the abdomen COMPARISON None. FINDINGS Gastric drainage tube terminates over the gastric fundus. The side ethel at the level of the esophagogastric junction. Consider advancement by5 cm. There are non-dilated loops of small and large bowel containing gas andstool. There are no dilated loops to suggest ileus or obstruction.Enteric contrast reaches the rectum. Suboptimal assessment for pneumoperitoneum with supine technique. Bilateral pleural effusions, right greater than left. Spine fusion hardware. Degenerative changes of spine. IMPRESSION IMPRESSION Gastric drainage tube terminates in the region of the gastric fundus. Theside port projects over the area of the esophagogastric junction. Consideradvancement by 5 cm. Nonobstructive bowel gas pattern. Enteric contrast reaches the rectum. Bilateral small pleural effusions. The information above was relayed directly by me by [employer] to KYRIE LOPEZ on 06/24/2024 at 9:19 pm Kyrie Lopez MD RADIOLOGY ([facility]) Final Re sult documented in this encounter Visit Diagnoses Diagnosis Small bowel obstruction (HCC) Unspecified intestinal obstruction Small bowel obstruction (HCC) Unspecified intestinal obstruction documented in this encounter Administered Medications Inactive Administered Medications - up to 3 most recent administrations Medication Order MAR Action Action Date Dose Rate Site Acetaminophen (Tylenol) tab 975 mg 975 mg, Oral, Q8H, First dose on 06/24/24 at 2200, Last dose on Cori 06/29/24 at 1400, For 5 days, Avoid in patients with severe hepatic impairment or severe active liver disease. Use for 5 days., Post-op, Post-op Given 06/26/2024 3:18 PM EST 975 mg Given 06/25/2024 8:54 PM EST 975 mg Given 06/25/2024 2:28 PM EST 975 mg atorvaSTATin (Lipitor) tab 20 mg 20 mg, Oral, Q1700, First dose (after last modification) on 06/25/24 at 1700, Until Discontinued Given 06/25/2024 4:12 PM EST 20 mg buPROPion (Wellbutrin) tab 150 mg 150 mg, NG Tube, [id number], First dose (after last modification) on 06/25/24 at 0600, Until Discontinued Given 06/25/2024 5:25 AM EST 150 mg buPROPion (Wellbutrin) tab 150 mg 150 mg, Oral, [id number], First dose (after last modification) on 06/26/24 at 0600, Until Discontinued Given 06/26/2024 6:08 AM EST 150 mg busPIRone (Buspar) tab 15 mg 15 mg, Oral, TID(AM/NOON/HS), First dose on 06/24/24 at 2200, Until Discontinued Given 06/24/2024 10:49 PM EST 15 mg busPIRone (Buspar) tab 15 mg 15 mg, NG Tube, TID(AM/NOON/HS), First dose (after last modification) on 06/25/24 at 0600, Until Discontinued Given 06/25/2024 5:26 AM EST 15 mg busPIRone (Buspar) tab 15 mg 15 mg, Oral, TID(AM/NOON/HS), First dose (after last modification) on 06/25/24 at 1200, Until Discontinued Given 06/26/2024 11:01 AM EST 15 mg Given 06/26/2024 6:08 AM EST 15 mg Given 06/25/2024 8:54 PM EST 15 mg Enoxaparin (Lovenox) inj 40 mg 40 mg, Subcutaneous, Daily(AM), First dose on 06/25/24 at 0900, Until Discontinued, If patient is on warfarin, inform provider if daily INR value is 2 or greater!, Admission Given 06/25/2024 9:44 AM EST 40 mg Abdomen Left Lower Isolyte-S pH 7.4 infusion Intravenous, at 75 mL/hr, Plasma-LYTE 148, isolyte-S, and isolyte-S pH 7.4 are considered equivalent - including for MAR barcode scanning., CONTINUOUS, Starting on 06/24/24 at 2030, Until 06/25/24 at 0918, Admission Rate Verify 06/25/2024 1:00 AM EST 75 mL/hr Rate Verify 06/24/2024 9:00 PM EST 75 mL/hr New Bag 06/24/2024 8:28 PM EST 75 mL/hr Lisinopril (Prinivil) tab 40 mg 40 mg, Oral, Daily(AM), First dose (after last modification) on Wed06/26/24 at 0900, Until Discontinued Given 06/26/2024 7:54 AM EST 40 mg LORazepam (Ativan) tab 0.25 mg 0.25 mg, Oral, Q12H PRN Sleep, Insomnia, Anxiety, Starting on 06/24/24 at 2143, Until Wed06/26/24 at 223 Given 06/25/2024 8:54 PM EST 0.25 mg Given 06/24/2024 10:49 PM EST 0.25 mg naloxone (Narcan) 0.4 MG/ML inj 0.08 mg 0.08 mg, IV Push, PRN Other, If patient is oversedated or Respiratory Rate less than 8, Starting on 06/24/24 at 1957, Until Wed06/26/24 at 2231, Call provider if patient is oversedated or Respiratory Rate is less than 8, Post-op ondansetron (Zofran) inj 4 mg 4 mg, IV Push, Q6H PRN Other, May use for nausea or vomiting if patient unable to take oral ondansetron, Starting on 06/24/24 at 1958, Until Wed06/26/24 at 2231, Admission ondansetron ODT (Zofran) tab 4 mg 4 mg, On Tongue, Q6H PRN Nausea, Vomiting, Starting on 06/24/24 at 1958, Until Wed06/26/24 at 2231, Admission oxyCODONE (Oxy IR) tab 5 mg 5 mg, Oral, Q4H PRN Pain, Severe, Starting on 06/25/24 at 0927, Until Wed06/26/24 at 2231, Post-op potassium and sodium phosphate (Phos-Nak) oral powder 2 Packet 2 Packet, Oral, ONCE, On Wed06/26/24 at 1000, For 1 dose, Mix 1 packet in 2.5 ounces (75 mL) of water, stir well and administer promptly. 1 packet contains Phosphorus 250 mg (~8 mMoles) + potassium 280 mg (~7.125 mEq) + sodium 160mg (~7.125 mEq) Given 06/26/2024 11:01 AM EST 2 Packets potassium phosphate 30 mmol in NSS 250 mL (K phos) ivpb 30 mmol, Peripheral IV, ONCE, 1 dose, On 06/25/24 at 1000 Restarted 06/25/2024 11:11 AM EST 6 mmol/hr 53 mL/hr Restarted 06/25/2024 9:57 AM EST 6 mmol/hr 53 mL/hr New Bag 06/25/2024 9:51 AM EST 30 mmol 53 mL/hr potassium phosphate 30 mmol in NSS 250 mL (K phos) ivpb 30 mmol, Peripheral IV, ONCE, 1 dose, On 06/26/24 at 1000 New Bag 06/26/2024 11:08 AM EST 30 mmol 53 mL/hr sodium chloride 0.9 % flush peripheral tyree 3 mL 3 mL, IV Push, Q8H, First dose on 06/24/24 at 2200, Until Discontinued, Do not flush if lock, PICC, or central line not in place; IV infusing or unable to flush., Admission Given 06/26/2024 3:00 PM EST 3 mL Given 06/25/2024 6:00 AM EST 3 mL Given 06/24/2024 10:00 PM EST 3 mL documented in this encounter Active and Recently Administered Medications Times are shown in EST. Scheduled Medication Order 06/24/2024 06/25/2024 06/26/2024 Acetaminophen (Tylenol) tab 975 mg 975 mg, Oral, Q8H, First dose on 06/24/24 at 2200, Last dose on Cori 06/29/24 at 1400, For 5 days, Avoid in patients with severe hepatic impairment or severe active liver disease. Use for 5 days., Post-op, Post-op 4740 (Given - Provider: Graciela Williamson RN) 0509 (Given - Provider: Graciela Williamson RN)1427 (Given - Provider: Marj Jamison RN)2053 (Given - Provider: Gabriel Jeffries RN) 0608 (Not Given - Provider: Gabriel Jeffries RN - Reason: Refused-Notify Provider)1518 (Given - Provider: Bib Gonsalez, RESHMA) atorvaSTATin (Lipitor) tab 20 mg 20 mg, Oral, Q1700, First dose (after last modification) on 06/25/24 at 1700, Until Discontinued 1612 (Given - Provider: Marj Jamison RN) 1700 (Due) buPROPion (Wellbutrin) tab 150 mg (CANCELED) 150 mg, NG Tube, [id number], First dose (after last modification) on 06/25/24 at 0600, Until Discontinued 0525 (Given - Provider: Graciela Williamson RN) buPROPion (Wellbutrin) tab 150 mg 150 mg, Oral, [id number], First dose (after last modification) on 06/26/24 at 0600, Until Discontinued 0608 (Given - Provider: Gabriel Jeffries RN) busPIRone (Buspar) tab 15 mg (CANCELED) 15 mg, Oral, TID(AM/NOON/HS), First dose on 06/24/24 at 2200, Until Discontinued 224 (Given - Provider: Graciela Williamson RN) busPIRone (Buspar) tab 15 mg (CANCELED) 15 mg, NG Tube, TID(AM/NOON/HS), First dose (after last modification) on 06/25/24 at 0600, Until Discontinued 0526 (Given - Provider: Graciela Williamson RN) busPIRone (Buspar) tab 15 mg 15 mg, Oral, TID(AM/NOON/HS), First dose (after last modification) on 06/25/24 at 1200, Until Discontinued 1140 (Given - Provider: Marj Jamison RN)2053 (Given - Provider: Gabriel Jeffries RN) 0608 (Given - Provider: Gabriel Jeffries RN)1101 (Given - Provider: Bib Gonsalez, RESHMA) Enoxaparin (Lovenox) inj 40 mg 40 mg, Subcutaneous, Daily(AM), First dose on 06/25/24 at 0900, Until Discontinued, If patient is on warfarin, inform provider if daily INR value is 2 or greater!, Admission 0944 (Given - Provider: Marj Jamison, RESHMA) 1600 (Due - Provider: Bib Gonsalez, RN) Lisinopril (Prinivil) tab 40 mg 40 mg, Oral, Daily(AM), First dose (after last modification) on Wed06/26/24 at 0900, Until Discontinued 0754 (Given - Provider: Bib Gonsalez, RN) potassium and sodium phosphate (Phos-Nak) oral powder 2 Packet (COMPLETED) 2 Packet, Oral, ONCE, On Wed06/26/24 at 1000, For 1 dose, Mix 1 packet in 2.5 ounces (75 mL) of water, stir well and administer promptly. 1 packet contains Phosphorus 250 mg (~8 mMoles) + potassium 280 mg (~7.125 mEq) + sodium 160mg (~7.125 mEq) 1101 (Given - Provider: Bib Gonsalez, RN) potassium phosphate 30 mmol in NSS 250 mL (K phos) ivpb (COMPLETED) 30 mmol, Peripheral IV, ONCE, 1 dose, On Wed06/25/24 at 1000 0951 (New Bag - Provider: Marj Jamison RN)0952 (Paused - Provider: Marj Jamison, RESHMA)0957 (Restarted - Provider: Marj Jamison RN)1051 (Paused - Provider: Marj Jamison, RESHMA)1111 (Restarted - Provider: Marj Jamison, RESHMA)1519 (Stopped - Provider: Marj Jamison, RESHMA) potassium phosphate 30 mmol in NSS 250 mL (K phos) ivpb (COMPLETED) 30 mmol, Peripheral IV, ONCE, 1 dose, On Wed06/26/24 at 1000 1108 (New Bag - Provider: Bib Gonsalez, RN) sodium chloride 0.9 % flush peripheral tyree 3 mL 3 mL, IV Push, Q8H, First dose on Wed06/24/24 at 2200, Until Discontinued, Do not flush if lock, PICC, or central line not in place; IV infusing or unable to flush., Admission 2200 (Given - Provider: Graciela Williamson RN) 0600 (Given - Provider: Graciela Williamson RN)1400 (Not Given - Provider: Marj Jamison RN - Reason: Parameter(s) Not Met)2053 (Not Given - Provider: Gabriel Jeffries RN - Reason: Refused-Notify Provider - Comment: No IV found on assessment) 0608 (Not Given - Provider: Gabriel Jeffries RN - Reason: Refused-Notify Provider)1500 (Given - Provider: Bib Gonsalez, RESHMA) Continuous Medication Order 06/24/2024 06/25/2024 06/26/2024 Isolyte-S pH 7.4 infusion (CANCELED) Intravenous, at 75 mL/hr, Plasma-LYTE 148, isolyte-S, and isolyte-S pH 7.4 are considered equivalent - including for MAR barcode scanning., CONTINUOUS, Starting on 06/24/24 at 2030, Until 06/25/24 at 0918, Admission 2027 (New Bag - Provider: Graciela Williamson RN)2100 (Rate Verify - Provider: Graciela Williamson RN) 0100 (Rate Verify - Provider: Graciela Williamson RN)0918 (Stopped - Provider: Marj Jamison RN) PRN Medication Order 06/24/2024 06/25/2024 06/26/2024 LORazepam (Ativan) tab 0.25 mg 0.25 mg, Oral, Q12H PRN Sleep, Insomnia, Anxiety, Starting on 06/24/24 at 2143, Until 06/26/24 at 2231 2249 (Given - Provider: Graciela Williamson RN) 2053 (Given - Provider: Gabriel Jeffries RN) naloxone (Narcan) 0.4 MG/ML inj 0.08 mg 0.08 mg, IV Push, PRN Other, If patient is oversedated or Respiratory Rate less than 8, Starting on 06/24/24 at 1957, Until 06/26/24 at 2231, Call provider if patient is oversedated or Respiratory Rate is less than 8, Post-op ondansetron (Zofran) inj 4 mg(Linked Group 1) 4 mg, IV Push, Q6H PRN Other, May use for nausea or vomiting if patient unable to take oral ondansetron, Starting on 06/24/24 at 1958, Until 06/26/24 at 2231, Admission ondansetron ODT (Zofran) tab 4 mg(Linked Group 1) 4 mg, On Tongue, Q6H PRN Nausea, Vomiting, Starting on 06/24/24 at 1958, Until Wed06/26/24 at 223, Admission oxyCODONE (Oxy IR) tab 5 mg 5 mg, Oral, Q4H PRN Pain, Severe, Starting on 06/25/24 at 0927, Until Wed06/26/24 at 2231, Post-op Linked Groups Order Group 1: ondansetron ODT (Zofran) tab 4 mgJump to med 4 mg, On Tongue, Q6H PRN Nausea, Vomiting, Starting on 06/24/24 at 1958, Until Wed06/26/24 at 223, Admission Or ondansetron (Zofran) inj 4 mgJump to med 4 mg, IV Push, Q6H PRN Other, May use for nausea or vomiting if patient unable to take oral ondansetron, Starting on 06/24/24 at 1958, Until Wed06/26/24 at 223, Admission documented in this encounter Advance Directives * [...] Power of Attor nikolai? No Care Teams Classifier Operator Relationship Specialty Start Date End Date Germán Felton MD [address] [place] [address] PCP - General Family Medicine 01/12/19 documented as of this encounter
--- OUTSIDE RECORDS SUMMARY | 2024-07-04 12:37 | External Medical Summary ---
Author Name Unknown Address Unknown Organization [id number]:[facility] [address] [place] [address] Laboratory Report Ordering Provider Test Date Status MATILDA CALVILLO 06/24/2024 22:00:00 Final Observation Date Value Abnormality Reference (Units ) Status Phosphate 06/24/2024 22:00:00 2.6 2.5-4.8 (m g/dL) Final Performing Location [facility] - [address] [place] [address]
--- OUTSIDE RECORDS SUMMARY | 2024-07-04 12:37 | External Medical Summary ---
Author Name Unknown Address Unknown Organization K01:[facility] - [address] [place] [address] Laboratory Report Ordering Provider Test Date Status FERNANDO BERKOWITZ 06/26/2024 07:10:00 Final Observation Date Value Abnormality Reference (Units ) Status Phosphate 06/26/2024 07:10:00 1.7 Below low normal 2.5 -4.8 (mg/dL) Final Performing Location [facility] - [address] [place] [id number]
--- OUTSIDE RECORDS SUMMARY | 2024-07-04 12:37 | External Medical Summary ---
Author Name Unknown Address Unknown Organization [id number]:[facility] - [address] [place] [address] Laboratory Report Ordering Provider Test Date Status MATILDA CALVILLO 06/24/2024 22:00:00 Final Observation Date Value Abnormality Reference (Units ) Status ABO 06/24/2024 22:00:00 B Final RH 06/24/2024 22:00:00 Positive Final Performing Location [facility] - [address] [place] [address]
--- NOTE | 2024-07-04 14:20 | Surgery Consultation ---
Date of Consultation July 04, 2024 Assessment & Plan (1) SBO (small bowel obstruction): 69 yo female with recurrent SBO with recurrent admissions and recent transfer to [facility]. SBO likely secondary to adhesive disease due to prior abdominal surgeries. She currently is feeling much better, passing gas and minimal abdominal pain. Dr. Chavez discussed imaging findings with patient and her family at bedside. Although she is feeling better, would recommend continuation of current management with bowel rest to see how she does in next 24 hours. She may require surgical intervention given ct findings and recurrence of her symptoms in a short period of time. For now, continue NPo for bowel rest, IV fluids, pain management and antiemetics as needed, labs while npo, encourage ambulation. Will follow along. Dr. Chavez has seen and examined patient, see addendum for further recommendations/plan. History of Present Illness Reason for Consultation: recurrent SBO Requesting Physician: Dr. Durham Attending Physician: Lois Schulte MD History of Present Illness 69-year-old female with past medical history significant for hypertension, hyperlipidemia, chronic hyponatremia SIADH per records, history of seizures, pituitary tumor, anxiety/mood disorder, history of microscopic colitis presented with abdominal pain and nausea and found to have small bowel obstruction. Patient was recently in the hospital for small bowel obstruction at the time NG tube was placed. Patient underwent Gastrografin small bowel follow-through for small bowel obstruction protocol. No contrast proceeded into the large bowel and was transferred to [facility] on 06/24/2024. In route to [facility] and at [facility] she had bowel movements and tolerated advanced diet. And patient was discharged on 06/26/2024. She was doing well after discharge and tolerating diet and having bowel movements but then started feeling nauseous and shad severe abdominal pain. She vomited on her way to emergency department. She underwent CT scan showing dilated small bowel slightly improved compared to prior however findings of possible mild to moderate small bowel obstruction still persists. History of robotic assisted left inguinal hernia repair with mesh and then diagnostic laparoscopy with lysis of adhesions for SBO by Dr. Phan in which small bowel was tethered to suture from hernia repair. She currently is sitting up in chair at bedside feeling much better. Very little pain and no persistent nausea or vomiting. She is passing gas. Wants to go home. Allergies Allergy/AdvReac Type Severity Reaction Status Date / Time bupropion [From Wellbutrin] AdvReac Severe low Verified 01/26/23 07:50 sodium/requires monitoring while taking hydrochlorothiazide AdvReac Mild SEVERE Verified 01/26/23 07:49 HEADACHES , DIZZINESS Home Medications Medication Instructions Recorded Confirmed Type Bifidobacterium infantis 10.5 mg 10 mg PO DAILY 07/04/24 07/04/24 History (10 million cell) chewable tablet (Align) amlodipine 5 mg tablet 5 mg PO DAILY 07/04/24 07/04/24 History atorvastatin 20 mg tablet 20 mg PO DAILY 07/04/24 07/04/24 History azelastine 137 mcg (0.1 %) nasal 1 spray intranasal BID PRN Allergy 07/04/24 07/04/24 History spray Symptoms bupropion HCl 150 mg tablet,12 hr 150 mg PO QAM 07/04/24 07/04/24 History sustained-release buspirone 10 mg tablet 10 mg PO TID 07/04/24 07/04/24 History cholecalciferol (vitamin D3) 25 25 mcg PO DAILY 07/04/24 07/04/24 History mcg (1,000 unit) tablet (Vitamin D3) coenzyme Q10 100 mg capsule 200 mg PO DAILY 07/04/24 07/04/24 History (CoQ-10) cyanocobalamin (vitamin B-12) 1,000 mcg PO DAILY 07/04/24 07/04/24 History 1,000 mcg tablet cyclosporine 0.05 % eye drops in a 1 drp ophthalmic (eye) Q12H 07/04/24 07/04/24 History dropperette (Restasis) glucosamine sulf dipot 1 cap PO DAILY 07/04/24 07/04/24 History chlr,msm,chond 550 mg-C 30 mg-sandra 1 mg capsule (Glucosamine Chondroitin) lisinopril 40 mg tablet 40 mg PO DAILY 07/04/24 07/04/24 History lorazepam 0.5 mg tablet (Ativan) 0.5 mg PO HS PRN Anxiety 07/04/24 07/04/24 History omega 7-fhs-xls-fish oil 1,000 mg 1 cap PO DAILY 07/04/24 07/04/24 History (120 mg-180 mg) capsule (Fish Oil) polyethylene glycol 3350 17 gram 17 g PO DAILY 07/04/24 07/04/24 History oral powder packet (Miralax) vitamins A,C,W-yqyq-ewmeew 2,148 1 tab PO BID 07/04/24 07/04/24 History mcg-113 mg-45 mg-17.4 mg tablet (PreserVision AREDS) Patient History Medical History Arthritis Macular degeneration Hyperlipidemia Anxiety and depression Seizure Aug 30, 2020 > [facility] > felt caused by low sodium and taking Wellbutrin > saw neurology from [place] and was cleared per pt History of intestinal obstruction 2/2 tethered suture from umbilical hernia repair. Spondylisthesis Seasonal allergies HTN (hypertension) Spinal stenosis Surgical History Fusion of spine lumbar History of cataract surgery rt/left [place] teeth extracted History of colonoscopy S/P exploratory laparotomy (02/25/19) Exploratory laparotomy, lysis of adhesions, excision of suture, closure of enterotomy - Ke Phan MD 02/25/19 History of shoulder surgery LEFT ROTATOR CUFF History of hand surgery right/left History of lumpectomy breast lumpectomy x 3 (benign) Status post inguinal hernia repair H/O hernia repair Complicated by tethered suture causing bowel obstruction-OK NOW Family History Other No family history of adverse response to anesthesia Social History Smoking Status: Never smoker Second Hand Exposure: No; Do You Dip or Chew Tobacco: No; Tobacco Cessation Education Requested by Patient: No Hx Alcohol Use: Yes Alcohol type: hard liquor Alcohol type Comment: socially Alcohol Intake Frequency: 2-4 x/Month Hx Substance Use: No Preferred Language: Kosovan Communication Ability: Effective Social Media Job Titles Required: No Beliefs That Will Affect Care: None marital status: Current Living Situation: Spouse Other Information That Helps Us Care for You: No Feels Safe at Home: Yes Safety Concerns: Feels Safe At This Time Assistive Devices: None Review of Systems Review of Systems: All systems reviewed & are unremarkable except as noted in HPI & below Physical Exam Constitutional: WD/WN, vitals as above cooperative and comfortable; no acute distress and not ill appearing Respiratory: normal respiratory effort; no respiratory distress, no labored breathing and no retractions Gastrointestinal (Abdomen): Inspection/Auscultation: abdomen normal to inspection; abdomen not distended Percussion/Palpation: abdomen soft; abdomen nontender, no guarding, abdomen not rigid and abdomen not firm Skin: no rashes, warm and dry Psychiatric: Orientation: alert and oriented x 3 Results & Data Vital Signs (Past 12 Hours) Vital Signs Temp Pulse Pulse Pulse Resp BP BP 07/04/24 09:30 36.7 C 86 18 120/70 07/04/24 08:00 36.7 C 89 18 126/73 07/04/24 08:00 113/71 07/04/24 07:56 77 21 07/04/24 07:47 77 22 07/04/24 07:30 117/73 07/04/24 07:30 117/73 07/04/24 07:20 69 16 07/04/24 07:00 116/76 07/04/24 06:56 90 07/04/24 06:41 72 07/04/24 06:32 86 18 07/04/24 06:30 122/72 07/04/24 06:30 122/72 07/04/24 06:30 122/72 07/04/24 06:26 85 20 122/72 07/04/24 06:02 77 15 120/71 07/04/24 05:29 81 23 124/74 07/04/24 04:50 83 23 107/70 07/04/24 04:33 86 16 138/78 07/04/24 04:00 73 16 120/60 07/04/24 02:49 88 07/04/24 02:43 78 24 137/83 07/04/24 02:28 36.4 C L 100 H 18 07/04/24 02:27 Pulse Ox O2 Del Method 07/04/24 09:30 96 Room Air 07/04/24 08:00 98 Room Air 07/04/24 08:00 07/04/24 07:56 98 07/04/24 07:47 96 07/04/24 07:30 07/04/24 07:30 07/04/24 07:20 96 07/04/24 07:00 07/04/24 06:56 100 07/04/24 06:41 11/26/24 06:32 100 07/04/24 06:30 07/04/24 06:30 07/04/24 06:30 07/04/24 06:26 99 07/04/24 06:02 95 07/04/24 05:29 97 07/04/24 04:50 97 07/04/24 04:33 97 07/04/24 04:00 98 Room Air 07/04/24 02:49 07/04/24 02:43 100 Room Air 07/04/24 02:28 95 Room Air 07/04/24 02:27 Room Air Laboratory Results 07/04/24 07/04/24 07/04/24 Range/Units 10:07 05:08 02:57 WBC 8.63 11.52 H (4.8-10.8) K/ul RBC 3.50 L 3.76 L (4.20-5.40) M/uL Hgb 11.6 L 12.2 (12.0-16.0) g/dl Hct 33.0 L 34.4 L (37.0-47.0) % MCV 94.3 91.5 (80.0-100.0) fL MCH 33.1 32.4 (25.0-34.0) pg MCHC 35.2 35.5 (32.0-36.0) g/dL RDW Std Deviation 47.3 H 46.0 (36.4-46.3) fL RDW Coeff of Bj 13.7 13.5 (11.5-14.5) % Plt Count 333 326 (130-400) K/uL MPV 9.0 L 9.0 L (9.4-12.4) fL Immature Gran % (Auto) 0.2 0.4 % Neut % (Auto) 78.1 86.0 % Lymph % (Auto) 14.0 8.3 % [place] % (Auto) 7.2 4.7 % Eos % (Auto) 0.2 0.2 % Baso % (Auto) 0.3 0.4 % Neut # (Auto) 6.73 H 9.90 H (1.40-6.50) K/uL Lymph # (Auto) 1.21 0.96 L (1.20-3.40) K/uL [place] # (Auto) 0.62 H 0.54 (0.11-0.59) K/uL Eos # (Auto) 0.02 0.02 (0.00-0.50) K/uL Baso # (Auto) 0.03 0.05 (0.00-0.20) K/uL Immature Gran # (Auto) 0.02 0.05 (0.01-0.20) K/uL PT 10.0 (9.0-12.0) Seconds INR 0.9 (0.9-1.1) Sodium 132 L 130 L (136-145) mmol/L Potassium 4.2 4.2 (3.5-5.1) mmol/L Chloride 100 100 (98-107) mmol/L Carbon Dioxide 26 20 L (21-32) mmol/L Anion Gap 6 10 (3-11) BUN 16 19 (6-23) mg/dl Creatinine 0.73 0.74 (0.6-1.2) mg/dl Est Cr Clr Drug Dosing 60.9 60.1 ml/min eGFR 88.42 86.98 BUN/Creatinine Ratio 21.9 H 25.7 H (10-20) Glucose 127 H 134 H (70-99(Fasting)) mg/dl Lactate 1.7 (0.4-2.0) mmol/L Calcium 9.0 9.3 (8.6-10.3) mg/dl Magnesium 2.0 (1.7-2.4) mg/dl Total Bilirubin 0.5 (0.2-1.0) mg/dl AST 21 (13-39) U/L ALT 21 (7-52) U/L Alkaline Phosphatase 56 (34-104) U/L Troponin I High Sens 4.1 (0-14) pg/ml Total Protein 6.4 (6.0-8.3) gm/dl Albumin 4.0 (3.4-5.0) gm/dl Globulin 2.4 L (2.5-4.0) gm/dl Albumin/Globulin Ratio 1.7 (0.9-2) Lipase 130 H (11-82) U/L Urine Color Yellow Urine Appearance Clear (Clear) Urine pH 8.5 H (4.5-7.5) Ur Specific [place] > 1.045 H (1.000-1.030) Urine Protein Negative (Negative) Urine Glucose (UA) Negative (Negative) Urine Ketones Trace H (Negative) Urine Blood Negative (Negative) Urine Nitrite Negative (Negative) Urine Bilirubin Negative (Negative) Urine Urobilinogen Negative (Negative) Ur Leukocyte Esterase Negative (Negative) Diagnostic Findings CT abd pelvis IV con only ADDENDUM: [facility] ER was called at [phone] at 4:59 AM SERVICE DESK TEAM LEAD, 07/04/2024, and Dr. Escalante was informed regarding the presence of Important Medical Findings on this report. Electronically signed by Edward Molina 07-04-2024 04:38 AM ADDENDUM END ADDENDUM Addendum Report EXAM: CT abd pelvis IV con only ADDENDUM: [facility] ER was called at [phone] at 4:59 AM SERVICE DESK TEAM LEAD, 07/04/2024, and Dr. Escalante was informed regarding the presence of Important Medical Findings on this report. Electronically signed by Edward Molina 07-04-2024 04:38 AM ADDENDUM END EXAM: CT abd pelvis IV con only CLINICAL HISTORY: N/V WITH HX OF SBO, 93 ML OPTIRAY 320 TECHNIQUE: CT of the abdomen and pelvis was performed with contrast (93 ML OPTIRAY 320), with the following protocol: axial images with, reconstructed coronal and sagittal images. One of the following dose reduction techniques was utilized for this exam: Automated exposure control, adjustment of the mA and/or kV according to patient size, and use of iterative reconstruction. COMPARISON: Comparison is made with 06/24/2024 cr and 06/21/2024 ct. FINDINGS: Abdomen: Liver: Normal in size, shape, and density. There is a 7 mm cyst in segment 8 of the liver. No masses were identified. Hepatic vasculature and biliary ducts are unremarkable. Gallbladder and Biliary System: The gallbladder is normal in size and shape. No wall thickening, pericholecystic fluid, or gallstones were identified. The common bile duct is normal in caliber without dilation. Pancreas: Pancreatic head, body, and tail are visualized and appear normal in size and density. No pancreatic masses or calcifications were noted. The pancreatic duct is not dilated. Spleen: Normal in size, shape, and density. No splenic lesions or masses were identified. Kidneys and Adrenal Glands: Both kidneys are normal in size, shape, and position. Cortical thickness is within normal limits. No renal calculi or hydronephrosis. Adrenal glands are unremarkable with no evidence of masses or hyperplasia. Pelvis: Urinary Bladder: Normal in contour and wall thickness. No intraluminal lesions were identified. Uterus: Normal in size and contour. No masses or abnormal thickening. Ovaries: Not well visualized but no gross abnormalities were noted. Vagina: Normal in contour and wall thickness. Cervix: No evidence of mass or abnormal thickening. Peritoneal and Retroperitoneal Structures: There are mild ascites. No lymphadenopathy was noted. Bowel: The colon loops are normal in calibration with fecal loading. Prominent dilatation with air-fluid leveling of the distal jejunal and ileal loops was noted. The proximal jejunal loops are normal in caliber. No significant wall thickening. No sign of appendicitis. Bones and Soft Tissues: Mild levoscoliosis noted. L4-S1 posterior fixator rods and screws noted. There are bony defects of the posterior elements of the L4 and L5 vertebrae. L4-L5 disc spacer noted. Decreased heights of the L3-L4 and L5-S1 discs with bulgings were noted. There are osteophytes with facet joints hypertrophies of the lumbar spine. Pelvic bones and soft tissues are unremarkable. No fractures or abnormal masses were identified. IMPRESSION: 1. Prominent dilatation and air-fluid leveling of the distal jejunal and ileal loops without a significant point of transition. This finding is suggestive of mild to moderate small bowel obstruction. On the other hand, there is fecal loading of the colon loops and air traced up to the rectum, thus these findings might be secondary to paralytic/brit ileus rather than mechanical obstruction. Please correlate clinically. 2. Mild ascites. 3. Other findings are in the report. 4. When compared to prior examination: The ascites show interval regression. Previously the small bowel dilatation was also evident on the proximal jejunal loops, whereas now they are in normal calibration. Fecal loading of the colon loops is more prominent at this time. Other findings are similar.
--- NOTE | 2024-07-04 18:22 | Electrocardiogram Report ---
Test Reason : Blood Pressure : */* mmHG Vent. Rate : 96 BPM Atrial Rate : 96 BPM P-R Int : 144 ms QRS Dur : 68 ms QT Int : 334 ms P-R-T Axes : 77 18 83 degrees QTcB Int : 421 ms Normal sinus rhythm Low voltage QRS Poor R wave progression, consider anterior IN vs. lead placement vs. LVH Abnormal ECG When compared with ECG of 13-Jun-2020 11:52, Nonspecific T wave abnormality now evident in Lateral leads Confirmed by David Ruiz ([id number]) on 07/04/2024 6:22:20 PM Referred By: REFERRED SELF Confirmed By: David Ruiz
[2024-07-04] MEDS: LORazepam 0.5 MG TAB PO PRN (19:24)
[2024-07-05 08:41] LABS: Hematocrit (blood only) 31.5 % (37.0-47.0); Hemoglobin 10.7 g/dl (12.0-16.0); Mean Corpuscular Hemoglobin 32.7 pg (25.0-34.0); Mean Corpuscular Volume 96.3 fL (80.0-100.0); Mean Platelet Volume 9.5 fL (9.4-12.4); Platelet Count 325 K/uL (130-400); RDW Coefficient of Variation 13.6 % (11.5-14.5); RDW Standard Deviation 48.5 fL (36.4-46.3); Red Blood Count 3.27 M/uL (4.20-5.40); White Blood Count 3.77 K/ul (4.8-10.8)
[2024-07-05 08:45] LABS: BUN Creatinine Ratio 13.1 (10-20); Calcium 8.4 mg/dl (8.6-10.3); Creatinine Clr Calc Pharmacy 72.9 ml/min; Potassium 3.8 mmol/L (3.5-5.1)
--- NOTE | 2024-07-05 09:30 | Surgery Progress Note ---
Date of Service July 05, 2024 Assessment & Plan (1) SBO (small bowel obstruction): Plan: 69 yo female with recurrent SBO with recurrent admissions and recent transfer to [facility]. SBO likely secondary to adhesive disease due to prior abdominal surgeries. She currently is feeling much better, passing gas and minimal abdominal pain. Dr. Chavez discussed imaging findings with patient and her family at bedside. Although she is feeling better, would recommend continuation of current management with bowel rest to see how she does in next 24 hours. She may require surgical intervention given ct findings and recurrence of her symptoms in a short period of time. For now, continue NPo for bowel rest, IV fluids, pain management and antiemetics as needed, labs while npo, encourage ambulation. Will follow along. 07/05/2024 avss no abdominal pain passing gas nondistended Plan: can advance to clear liquids continue to ambulate Miralax daily Low fiber diet on discharge continue medical management Dr. Chavez has seen and examined patient, see addendum for further recommendations/plan. Admission and Anticipated Discharge Date Admission Date: July 04, 2024 Subjective feeling good, no pain no nausea wants coffee passing some gas, felt a little bloated last night but not so much this am , better after ambulating Physical Exam Constitutional: WD/WN, vitals as above cooperative and comfortable; no acute distress and not ill appearing Respiratory: normal respiratory effort; no respiratory distress and no labored breathing Gastrointestinal (Abdomen): Inspection/Auscultation: abdomen normal to inspection and + abdominal surgical scar; abdomen not distended Percussion/Palpation: abdomen soft; abdomen nontender, no guarding, abdomen not rigid and abdomen not firm Skin: no rashes, warm and dry Psychiatric: Orientation: alert and oriented x 3 Results & Data Vital Signs (Past 12 Hours) Vital Signs Temp Pulse Resp BP Pulse Ox O2 Del Method 07/05/24 08:30 72 18 121/71 99 Room Air 07/05/24 07:26 36.6 C 68 16 129/74 100 Room Air Laboratory Results 07/05/24 07/04/24 Range/Units 07:57 10:07 WBC 3.77 L 8.63 (4.8-10.8) K/ul RBC 3.27 L 3.50 L (4.20-5.40) M/uL Hgb 10.7 L 11.6 L (12.0-16.0) g/dl Hct 31.5 L 33.0 L (37.0-47.0) % MCV 96.3 94.3 (80.0-100.0) fL MCH 32.7 33.1 (25.0-34.0) pg MCHC 34.0 35.2 (32.0-36.0) g/dL RDW Std Deviation 48.5 H 47.3 H (36.4-46.3) fL RDW Coeff of Bj 13.6 13.7 (11.5-14.5) % Plt Count 325 333 (130-400) K/uL MPV 9.5 9.0 L (9.4-12.4) fL Immature Gran % (Auto) 0.2 % Neut % (Auto) 78.1 % Lymph % (Auto) 14.0 % [place] % (Auto) 7.2 % Eos % (Auto) 0.2 % Baso % (Auto) 0.3 % Neut # (Auto) 6.73 H (1.40-6.50) K/uL Lymph # (Auto) 1.21 (1.20-3.40) K/uL [place] # (Auto) 0.62 H (0.11-0.59) K/uL Eos # (Auto) 0.02 (0.00-0.50) K/uL Baso # (Auto) 0.03 (0.00-0.20) K/uL Immature Gran # (Auto) 0.02 (0.01-0.20) K/uL Sodium 137 132 L (136-145) mmol/L Potassium 3.8 4.2 (3.5-5.1) mmol/L Chloride 106 100 (98-107) mmol/L Carbon Dioxide 25 26 (21-32) mmol/L Anion Gap 6 6 (3-11) BUN 8 16 (6-23) mg/dl Creatinine 0.61 0.73 (0.6-1.2) mg/dl Est Cr Clr Drug Dosing 72.9 60.9 ml/min eGFR 96.12 88.42 BUN/Creatinine Ratio 13.1 21.9 H (10-20) Glucose 117 H 127 H (70-99(Fasting)) mg/dl Calcium 8.4 L 9.0 (8.6-10.3) mg/dl Phosphorus 3.0 (2.5-4.9) mg/dl Magnesium 2.0 2.0 (1.7-2.4) mg/dl
--- NOTE | 2024-07-05 10:57 | Hospitalist Progress Note ---
Date of Service July 05, 2024 Assessment & Plan (1) SBO (small bowel obstruction): Plan Pt is a 69-year-old female with past medical history significant for hypertension, hyperlipidemia, chronic hyponatremia, SIADH per records, history of seizures per records, pituitary tumor per records anxiety/mood disorder, history of microscopic colitis who presented with abdominal pain and nausea and found to have another small bowel obstruction. Patient was recently in the hospital for small bowel obstruction. At the time NG tube was placed. Patient underwent Gastrografin small bowel follow-through with small bowel obstruction protocol. No contrast proceeded into the large bowel. Because of a previous complicated surgical history, family requested transfer to higher level level of care and she was transferred to [facility] on 06/24/2024. At [place], she had bowel movements and tolerated a diet. Patient was discharged on 06/26/2024. 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 Then in the evening, patient started feeling nauseous with severe abdominal pain. Because of significant severe abdominal pain, brought her back to the hospital today. En route she vomited. With pain medications pain is somewhat improved. Small bowel obstruction Second recent episode Repeat CT abd/pelvis noting suggestion of "mild to moderate small bowel obstruction" vs, "paralytic/brit ileus rather than mechanical obstruction." General Surgery consulted, appreciate recs. Recommended or stated the following on 07/05/2024: "can advance to clear liquids continue to ambulate Miralax daily Low fiber diet on discharge continue medical management" D/c IV fluids with po intake IV antiemetics as needed Pain control as needed If worsening consider NG tube placement Improving Ascites Mild ascites on CAT scan Needs follow-up as outpt Chronic hyponatremia Sodium 130 on admission Known History of this Improving Hypertension On lisinopril and amlodipine IV hydralazine as needed Continue to monitor Hyperlipidemia On statin, continue Anxiety/mood disorder On buspirone and Ativan as needed On Wellbutrin History of microscopic colitis Follows with GI Diet: Advancing as tolerated DVT prophylaxis: SCDs and heparin subcu Dispo: Home once medically stable Admission and Anticipated Discharge Date Admission Date: July 04, 2024 Subjective Patient was seen in the AM. Sitting in bed, at bedside. States she felt tired, had not had any bowel movements yet at that time. However she states she has been passing gas. Was excited about having diet advanced to clears and having some coffee today. Review of Systems Review of Systems: All systems reviewed & are unremarkable except as noted in Subjective Physical Exam Physical Exam: General: Alert, oriented. No acute distress Skin: No noted rashes or bruises Psych: Appropriate mood and affect HEENT: NC/AT CV: RRR Resp: Breath sounds clear bilaterally, no increased effort of breathing Abdomen: Soft, nontender Extremities: No edema in lower extremities bilaterally. Results & Data Results & Data Vital Signs (Past 12 Hours) Vital Signs Temp Pulse Resp BP Pulse Ox O2 Del Method 07/05/24 08:30 72 18 121/71 99 Room Air 07/05/24 07:26 36.6 C 68 16 129/74 100 Room Air Diagnostic Findings Abdomen/Pelvis CT 07/04/24 03:09 EXAM: CT abd pelvis IV con only CLINICAL HISTORY: N/V WITH HX OF SBO, 93 ML OPTIRAY 320 TECHNIQUE: CT of the abdomen and pelvis was performed with contrast (93 ML OPTIRAY 320), with the following protocol: axial images with, reconstructed coronal and sagittal images. One of the following dose reduction techniques was utilized for this exam: Automated exposure control, adjustment of the mA and/or kV according to patient size, and use of iterative reconstruction. COMPARISON: Comparison is made with 06/24/2024 cr and 06/21/2024 ct. FINDINGS: Abdomen: Liver: Normal in size, shape, and density. There is a 7 mm cyst in segment 8 of the liver. No masses were identified. Hepatic vasculature and biliary ducts are unremarkable. Gallbladder and Biliary System: The gallbladder is normal in size and shape. No wall thickening, pericholecystic fluid, or gallstones were identified. The common bile duct is normal in caliber without dilation. Pancreas: Pancreatic head, body, and tail are visualized and appear normal in size and density. No pancreatic masses or calcifications were noted. The pancreatic duct is not dilated. Spleen: Normal in size, shape, and density. No splenic lesions or masses were identified. Kidneys and Adrenal Glands: Both kidneys are normal in size, shape, and position. Cortical thickness is within normal limits. No renal calculi or hydronephrosis. Adrenal glands are unremarkable with no evidence of masses or hyperplasia. Pelvis: Urinary Bladder: Normal in contour and wall thickness. No intraluminal lesions were identified. Uterus: Normal in size and contour. No masses or abnormal thickening. Ovaries: Not well visualized but no gross abnormalities were noted. Vagina: Normal in contour and wall thickness. Cervix: No evidence of mass or abnormal thickening. Peritoneal and Retroperitoneal Structures: There are mild ascites. No lymphadenopathy was noted. Bowel: The colon loops are normal in calibration with fecal loading. Prominent dilatation with air-fluid leveling of the distal jejunal and ileal loops was noted. The proximal jejunal loops are normal in caliber. No significant wall thickening. No sign of appendicitis. Bones and Soft Tissues: Mild levoscoliosis noted. L4-S1 posterior fixator rods and screws noted. There are bony defects of the posterior elements of the L4 and L5 vertebrae. L4-L5 disc spacer noted. Decreased heights of the L3-L4 and L5-S1 discs with bulgings were noted. There are osteophytes with facet joints hypertrophies of the lumbar spine. Pelvic bones and soft tissues are unremarkable. No fractures or abnormal masses were identified. IMPRESSION: 1. Prominent dilatation and air-fluid leveling of the distal jejunal and ileal loops without a significant point of transition. This finding is suggestive of mild to moderate small bowel obstruction. On the other hand, there is fecal loading of the colon loops and air traced up to the rectum, thus these findings might be secondary to paralytic/brit ileus rather than mechanical obstruction. Please correlate clinically. 2. Mild ascites. 3. Other findings are in the report. 4. When compared to prior examination: The ascites show interval regression. Previously the small bowel dilatation was also evident on the proximal jejunal loops, whereas now they are in normal calibration. Fecal loading of the colon loops is more prominent at this time. Other findings are similar. Electronically signed by Edward Molina 07-04-2024 04:38 AM
[2024-07-05] MEDS: POLYETHYLENE (MIRALAX) 17 GM PACK PO SCH (11:06)
[2024-07-05] MEDS: ACETAMINOPHEN 1,000 MG/100 ML VIAL IV PRN (15:36)
[2024-07-05] MEDS: ONDANSETRON INJ 2 MG/ML 2 ML VIAL IV PRN (15:42)
--- NOTE | 2024-07-05 19:25 | Communication Note ---
Date of Service: July 05, 2024 Patient with recurrent emesis episodes as per RN. AP SBO, probable progression given emesis episodes NGT insertion to facilitate decompression (Patient refusing procedure despite explanation of benefit as per RN.)
[2024-07-05] MEDS: PROMETHAZINE 6.25 MG/50.25 ML BAG IV PRN (19:40)
[2024-07-06] MEDS: HYDROmorphone INJ 0.5 MG/0.5 ML SYR IV PRN ×2 (01:18→16:53)
[2024-07-06] MEDS: KETOROLAC TROMETHAMINE 15 MG/ML VIAL IV ONE (05:57)
[2024-07-06 06:33] LABS: Hematocrit (blood only) 33.9 % (37.0-47.0); Hemoglobin 11.9 g/dl (12.0-16.0); Mean Corpuscular Hemoglobin 32.8 pg (25.0-34.0); Mean Corpuscular Hgb Conc 35.1 g/dL (32.0-36.0); Mean Corpuscular Volume 93.4 fL (80.0-100.0); Platelet Count 327 K/uL (130-400); RDW Coefficient of Variation 13.7 % (11.5-14.5); Red Blood Count 3.63 M/uL (4.20-5.40); White Blood Count 13.01 K/ul (4.8-10.8)
[2024-07-06 06:57] LABS: Albumin Globulin Ratio 1.9 (0.9-2); Albumin Level 3.9 gm/dl (3.4-5.0); BUN Creatinine Ratio 19.1 (10-20); Bilirubin,Total 0.8 mg/dl (0.2-1.0); Creatinine Clr Calc Pharmacy 65.4 ml/min; Ferritin 79.2 ng/ml (8-388); Globulin 2.1 gm/dl (2.5-4.0); Magnesium 1.9 mg/dl (1.7-2.4); Phosphorus 4.3 mg/dl (2.5-4.9); Potassium 3.6 mmol/L (3.5-5.1)
[2024-07-06 07:11] LABS: Folate (Folic Acid),Ser orPlas > 22.30 ng/ml (>5.38); Vitamin B12 1278 pg/ml (180-914)
--- NOTE | 2024-07-06 07:59 | History & Physical Bridge Note ---
Date of Service July 06, 2024 History & Physical Bridge Note I have examined the patient, reviewed the History & Physical and in the interval since the performance of the History & Physical I have noted the following changes of clinical significance: no changes noted. She did have episodes of vomiting overnight. We discussed the risks and benefits of exploratory laparotomy with lysis of adhesions, possible bowel resection. All questions were answered and consent has been obtained. We will take her to the operating room at the earliest convenience.
--- NOTE | 2024-07-06 08:09 | Hospitalist Progress Note ---
Date of Service July 06, 2024 Assessment & Plan (1) SBO (small bowel obstruction): Plan Pt is a 69-year-old female with past medical history significant for hypertension, hyperlipidemia, chronic hyponatremia, SIADH per records, history of seizures per records, pituitary tumor per records anxiety/mood disorder, history of microscopic colitis who presented with abdominal pain and nausea and found to have another small bowel obstruction. Patient was recently in the hospital for small bowel obstruction. At the time NG tube was placed. Patient underwent Gastrografin small bowel follow-through with small bowel obstruction protocol. No contrast proceeded into the large bowel. Because of a previous complicated surgical history, family requested transfer to higher level level of care and she was transferred to [facility] on 06/24/2024. At [place], she had bowel movements and tolerated a diet. Patient was discharged on 06/26/2024. 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 Then in the evening, patient started feeling nauseous with severe abdominal pain. Because of significant severe abdominal pain, brought her back to the hospital today. En route she vomited. With pain medications pain is somewhat improved. Small bowel obstruction Second recent episode Repeat CT abd/pelvis noting suggestion of "mild to moderate small bowel obstruction" vs, "paralytic/brit ileus rather than mechanical obstruction." General Surgery consulted, appreciate recs. - patient initially improved with advancement to clears on 07/05/2024 -However overnight with episodes of emesis, patient reportedly refusing placement of an NG tube -Taken to the OR on 07/06/2024 -s/p "exploratory laparotomy, lysis of adhesions, small bowel resection x 2" by general surgery on 07/06/2024. patient with NG tube Postop IV antiemetics as needed Pain control as needed Continue to monitor Ascites Mild ascites on CAT scan Needs follow-up as outpt Chronic hyponatremia Sodium 130 on admission Known History of this Improving Hypertension On lisinopril and amlodipine IV hydralazine as needed Continue to monitor Hyperlipidemia On statin, continue Anxiety/mood disorder On buspirone and Ativan as needed On Wellbutrin History of microscopic colitis Follows with GI Diet: currently NPO postop DVT prophylaxis: SCDs and heparin subcu Dispo: Home once medically stable Admission and Anticipated Discharge Date Admission Date: July 04, 2024 Subjective was seen in the a.m. before her surgery overnight had episodes of emesis and was declining placement of the NG tube Stated that she was still feeling nauseous and abdomen was tender and crampy daughter Carmela called in the a.m. and updated Review of Systems Review of Systems: All systems reviewed & are unremarkable except as noted in Subjective Physical Exam Physical Exam: General: Alert, oriented. Psych: Appropriate mood and affect HEENT: NC/AT CV: RRR Resp: Breath sounds clear bilaterally, no increased effort of breathing Abdomen: Soft, tender Extremities: No edema in lower extremities bilaterally. Results & Data Results & Data Vital Signs (Past 12 Hours) Vital Signs Temp Pulse Resp BP Pulse Ox O2 Del Method 07/06/24 07:29 37 C 90 16 103/62 96 Room Air
--- NOTE | 2024-07-06 08:23 | Anesthesiology Consultation ---
Date of Service July 06, 2024 Assessment & Plan Chart Review Chart Review: Acceptable Risk for Surgery and Patient NOT seen in Pre Admission Testing Consults Requested none History Surgery Operation Date: 07/06/24 12:00 Proposed Procedures p Exploratory Laparotomy, Possible Bowel Resection - Colton Chavez MD Height/Weight Height: 5 ft 7 in Weight: 53.8 kg Allergies Allergy/AdvReac Type Severity Reaction Status Date / Time bupropion [From Wellbutrin] AdvReac Severe low Verified 01/26/23 07:50 sodium/requires monitoring while taking hydrochlorothiazide AdvReac Mild SEVERE Verified 01/26/23 07:49 HEADACHES , DIZZINESS Medications Home Medications Medication Instructions Recorded Confirmed Last Taken Bifidobacterium infantis 10.5 mg 10 mg PO DAILY 07/04/24 07/04/24 Unknown (10 million cell) chewable tablet (Align) amlodipine 5 mg tablet 5 mg PO DAILY 07/04/24 07/04/24 Unknown atorvastatin 20 mg tablet 20 mg PO DAILY 07/04/24 07/04/24 Unknown azelastine 137 mcg (0.1 %) nasal 1 spray intranasal BID PRN Allergy 07/04/24 07/04/24 Unknown spray Symptoms bupropion HCl 150 mg tablet,12 hr 150 mg PO QAM 07/04/24 07/04/24 Unknown sustained-release buspirone 10 mg tablet 10 mg PO TID 07/04/24 07/04/24 Unknown cholecalciferol (vitamin D3) 25 25 mcg PO DAILY 07/04/24 07/04/24 Unknown mcg (1,000 unit) tablet (Vitamin D3) coenzyme Q10 100 mg capsule 200 mg PO DAILY 07/04/24 07/04/24 Unknown (CoQ-10) cyanocobalamin (vitamin B-12) 1,000 mcg PO DAILY 07/04/24 07/04/24 Unknown 1,000 mcg tablet cyclosporine 0.05 % eye drops in a 1 drp ophthalmic (eye) Q12H 07/04/24 07/04/24 Unknown dropperette (Restasis) glucosamine sulf dipot 1 cap PO DAILY 07/04/24 07/04/24 Unknown chlr,msm,chond 550 mg-C 30 mg-sandra 1 mg capsule (Glucosamine Chondroitin) lisinopril 40 mg tablet 40 mg PO DAILY 07/04/24 07/04/24 Unknown lorazepam 0.5 mg tablet (Ativan) 0.5 mg PO HS PRN Anxiety 07/04/24 07/04/24 Unknown omega 5-wtk-ebt-fish oil 1,000 mg 1 cap PO DAILY 07/04/24 07/04/24 Unknown (120 mg-180 mg) capsule (Fish Oil) polyethylene glycol 3350 17 gram 17 g PO DAILY 07/04/24 07/04/24 Unknown oral powder packet (Miralax) vitamins A,C,S-jxva-mwjrzl 2,148 1 tab PO BID 07/04/24 07/04/24 Unknown mcg-113 mg-45 mg-17.4 mg tablet (PreserVision AREDS) Active Medications Generic Name Dose Route Start Last Admin Trade Name Freq PRN Reason Stop Dose Admin Amlodipine Besylate 5 mg 07/04/24 09:00 07/05/24 08:32 Amlodipine Besylate 5 Mg Tab PO 08/03/24 08:59 5 mg DAILY ANNEL Administration Atorvastatin Calcium 20 mg 07/04/24 09:00 07/05/24 08:32 Atorvastatin 20 Mg Tab PO 08/03/24 08:59 20 mg DAILY ANNEL Administration Bupropion HCl 150 mg 07/04/24 09:00 07/05/24 08:28 Bupropion Sr 150 Mg Tabcr PO 08/03/24 08:59 150 mg QAM ANNEL Administration Buspirone HCl 10 mg 07/04/24 09:00 07/05/24 20:02 Buspirone 5 Mg Tab PO 08/03/24 08:59 10 mg TID ANNEL Administration Heparin Sodium (Porcine) 5,000 units 07/04/24 09:00 07/06/24 08:06 Heparin Sod 5,000 Unit/0.5 Ml Vial SQ 08/03/24 08:59 Not Given Q12 ANNEL Hydromorphone HCl 0.25 mg 07/04/24 08:46 07/06/24 01:18 Hydromorphone Inj 0.5 Mg/0.5 Ml Syr IV 07/18/24 08:45 0.25 mg Q6H PRN Administration Moderate Pain (Scale 4, 5, 6) Acetaminophen 1,000 mg in 100 mls @ 400 mls/hr 07/04/24 08:46 07/06/24 00:29 Ofirmev IV 07/07/24 08:45 Infused Q8H PRN Infusion Pain or Fever Promethazine HCl 6.25 mg in 50.25 mls @ 201 mls/hr 07/05/24 19:18 07/06/24 04:14 Phenergan IV 08/04/24 19:17 Infused Q6H PRN Infusion Nausea And Vomiting Lisinopril 40 mg 07/04/24 09:00 07/05/24 08:29 Lisinopril 40 Mg Tab PO 08/03/24 08:59 40 mg DAILY ANNEL Administration Lorazepam 0.5 mg 07/04/24 08:46 07/04/24 19:24 Lorazepam 0.5 Mg Tab PO 08/03/24 08:45 0.5 mg HS PRN Administration Anxiety Ondansetron HCl 4 mg 07/04/24 08:46 07/06/24 01:18 Ondansetron Inj 2 Mg/Ml 2 Ml Vial IV 08/03/24 08:45 4 mg Q6H PRN Administration Nausea Polyethylene Glycol 17 gm 07/05/24 10:45 07/05/24 11:06 Polyethylene (Miralax) 17 Gm Pack PO 08/04/24 10:44 17 gm DAILY ANNEL Administration Past Medical History Medical History Arthritis Macular degeneration Hyperlipidemia Anxiety and depression Seizure Aug 30, 2020 > [facility] > felt caused by low sodium and taking Wellbutrin > saw neurology from [place] and was cleared per pt History of intestinal obstruction 2/2 tethered suture from umbilical hernia repair. Spondylisthesis Seasonal allergies HTN (hypertension) Spinal stenosis Past Family History Family History Other No family history of adverse response to anesthesia Past Surgical History Surgical History Fusion of spine lumbar History of cataract surgery rt/left Arma teeth extracted History of colonoscopy S/P exploratory laparotomy (02/25/19) Exploratory laparotomy, lysis of adhesions, excision of suture, closure of enterotomy - Ke Phan MD 02/25/19 History of shoulder surgery LEFT ROTATOR CUFF History of hand surgery right/left History of lumpectomy breast lumpectomy x 3 (benign) Status post inguinal hernia repair H/O hernia repair Complicated by tethered suture causing bowel obstruction-OK NOW Social History Smoking Status: Never smoker Do You Dip or Chew Tobacco: No Hx Alcohol Use: Yes Alcohol type: hard liquor alcohol intake frequency: holidays/special occasions only Hx Substance Use: No substance use type: does not use Physical Exam Vital Signs Last Vital Signs Temp 37 C 07/06/24 07:29 Pulse 90 07/06/24 07:29 Resp 16 07/06/24 07:29 BP 103/62 07/06/24 07:29 Pulse Ox 96 07/06/24 07:29 O2 Del Method Room Air 07/06/24 07:29 Testing Laboratory Results 07/06/24 06:00 07/06/24 06:00 PT 10.0 Seconds (9.0-12.0) 07/04/24 02:57 INR 0.9 (0.9-1.1) 07/04/24 02:57 Urine Color Yellow 07/04/24 05:08 Urine Appearance Clear (Clear) 07/04/24 05:08 Urine pH 8.5 (4.5-7.5) H 07/04/24 05:08 Ur Specific [place] > 1.045 (1.000-1.030) H 07/04/24 05:08 Urine Protein Negative (Negative) 07/04/24 05:08 Urine Glucose (UA) Negative (Negative) 07/04/24 05:08 Urine Ketones Trace (Negative) H 07/04/24 05:08 Urine Nitrite Negative (Negative) 07/04/24 05:08 Ur Leukocyte Esterase Negative (Negative) 07/04/24 05:08
[2024-07-06] MEDS ORDERED: fentaNYL citrate PF 100 MCG/2 ML VIAL ONE (08:25)
[2024-07-06] MEDS ORDERED: MIDAZOLAM HCL 1 MG/ML 2ML VIAL ONE (08:25)
[2024-07-06] MEDS ORDERED: DEXAMETHASONE SOD INJ 4 MG/ML VIAL ONE (08:26)
[2024-07-06] MEDS ORDERED: ONDANSETRON INJ 2 MG/ML 2 ML VIAL ONE (08:26)
[2024-07-06] MEDS ORDERED: ROCURONIUM BROMIDE 10 MG/ML 5 ML VIAL IV ONE ×2 (08:28)
[2024-07-06] MEDS ORDERED: ARTIFICIAL TEARS OP OINT 3.5 GM TUBE ONE (08:29)
[2024-07-06] MEDS: cefOXitin 2,000 MG in DEXTROSE 5 % MINI-B 50 ML IV ONE (09:07)
[2024-07-06] MEDS ORDERED: PHENYLEPHRINE HCL 10 MG/ML VIAL ONE (09:11)
[2024-07-06] MEDS ORDERED: KETAMINE HCL 10MG/ML SYR ONE (09:25)
[2024-07-06] MEDS ORDERED: ePHEDrine sulfate 50 MG/ML AMP IV PRN (10:18)
[2024-07-06] MEDS ORDERED: ATROPINE SULFATE 0.1 MG/ML 10ML SYR IV PRN (10:18)
[2024-07-06] MEDS ORDERED: SUGAMMADEX SODIUM 200 MG/2 ML VIAL IV ONE (10:36)
--- NOTE | 2024-07-06 11:09 | Post Operative Brief Note ---
Immediate Post Op Note Date of Surgery July 06, 2024 Pre & Post Diagnosis Operation Date: 07/06/24 12:00 Preop diagnosis: Small bowel obstruction Postop diagnosis: Same I identified the patient and participated in the time-out.: Yes Procedure Operation Date: 07/06/24 12:00 exploratory laparotomy, lysis of adhesions, small bowel resection x 2 Surgeon Colton Chavez MD Structural Analyst none Estimated Blood Loss 15 Findings Consistent with Post-Op Diagnosis Drains Roche Catheter
[2024-07-06] MEDS: HYDROmorphone INJ 1 MG/ML SYRINGE IV PRN (11:10)
[2024-07-06] MEDS: DROPERIDOL 5 MG/2 ML VIAL IV PRN (11:11)
--- NOTE | 2024-07-06 11:14 | Operative Report ---
Post Operative Report Pre & Post Diagnosis Operation Date: 07/06/24 12:00 Pre-Op diagnosis: Small bowel obstruction Postop diagnosis: Same I identified the patient and participated in the time-out.: Yes Procedure Operation Date: 07/06/24 12:00 exploratory laparotomy, lysis of adhesions, small bowel resection x 2 Surgeon Colton Chavez MD Manager Personal none Estimated Blood Loss 15 Findings Consistent with Post-Op Diagnosis severe adhesions of the small bowel causing a high-grade small bowel obstruction. Multiple serosal tears necessitating small bowel resection x 2 Specimens small bowel resection x 2 Drains none Anesthesia Type General Complications none Description of Procedure patient was taken to the operating room, placed supine on the operating table. A timeout was performed, perioperative antibiotics were administered, SCD boots were placed. After adequate anesthesia and analgesia was obtained, a Roche catheter was placed, and the patient was prepped and draped in the normal sterile fashion. Midline incision was made in the lower abdomen with a 15 blade scalpel and carried down to level of the fascia. The fascia was opened at the umbilicus and the incision was opened to its fullest extent. There was a significant amount of ascitic fluid within the abdominal cavity which was suctioned free. The bowel was quite distended. We reflected the transverse colon and omentum cephalad and began at the ligament of Treitz. We ran the bowel down from the ligament of Treitz. Once we got to the ileum, there was severe significant adhesions of the bowel to itself and to the posterior wall of the abdominal cavity as well as the mesentery. Metzenbaum scissor dissection commenced and with a combination of scissor dissection and blunt dissection, we were able to free up the bowel. There is an area of bowel folded back on itself that represented the area of high-grade obstruction. The bowel was densely adhesed to itself in this location. While dissecting the loop free, an enterotomy occurred. At this point we decided to resect this area of the small bowel. The area of enterotomy was resected using MENG stapler. The mesentery was taken down with a clamp and tie technique. Once all of the adhesions were freed up, the bowel was run again from the ligament of Treitz down to the terminal ileum and back. There were no further areas of obstruction. The abdomen was copiously irrigated and suctioned free at this location. Hemostasis was excellent. Discontinuity of the bowel was put back together with a [id number] functional end-to-end anastomosis which was completed with the MENG stapler and subsequently the TA stapler. The resulting mesenteric defect was closed with 3-0 Vicryl. At this point it was noted that bowel contents were able to pass freely through the small bowel all the way to the colon. We continued to inspect the small bowel. In the mid small bowel, there was an area of bowel that was somewhat ischemic. During the dissection, some of the blood vessels going to this area were compromised. This area of small bowel was resected and a osgf-as-[id number] functional end-to-end anastomosis was created with a MENG stapler and a TA stapler. Again a corner stitch was placed of 3-0 silk, and the mesenteric defect was closed with a 3-0 Vicryl. There were no further areas of serosal tear or injury. Once again the bowel was copiously irrigated and suctioned free , and hemostasis was excellent. The bowel was replaced into the abdominal cavity in its the [place] configuration. The fascia was reapproximated with a running #1 PDS suture. The skin was reapproximated with surgical clips. Dressings were applied. A binder was applied. Show procedure without complication, was transferred in stable condition to the PACU. All instrument, needle, and sponge counts were correct at the end of the case. I performed the procedure. I attest to the content of the Intraoperative Record and any orders documented therein. Any exceptions are noted below.
[2024-07-06] MEDS: ACETAMINOPHEN 1,000 MG/100 ML VIAL IV STA (11:32)
[2024-07-07 06:50] LABS: Basophils # (auto) 0.02 K/uL (0.00-0.20); Basophils % (auto) 0.2 %; Hematocrit (blood only) 32.1 % (37.0-47.0); Immature Granulocytes # (auto) 0.03 K/uL (0.01-0.20); Immature Granulocytes % (auto) 0.3 %; Lymphocytes # (auto) 0.56 K/uL (1.20-3.40); Lymphocytes % (auto) 4.8 %; Mean Corpuscular Hemoglobin 32.7 pg (25.0-34.0); Mean Corpuscular Hgb Conc 34.3 g/dL (32.0-36.0); Mean Corpuscular Volume 95.5 fL (80.0-100.0); Mean Platelet Volume 9.4 fL (9.4-12.4); Monocytes # (auto) 0.86 K/uL (0.11-0.59); Monocytes % (auto) 7.4 %; Neutrophils # (auto) 10.09 K/uL (1.40-6.50); Neutrophils % (auto) 87.3 %; Platelet Count 294 K/uL (130-400); RDW Coefficient of Variation 13.8 % (11.5-14.5); RDW Standard Deviation 49.4 fL (36.4-46.3); Red Blood Count 3.36 M/uL (4.20-5.40); White Blood Count 11.56 K/ul (4.8-10.8)
[2024-07-07 07:14] LABS: Albumin Globulin Ratio 1.6 (0.9-2); Albumin Level 3.2 gm/dl (3.4-5.0); BUN Creatinine Ratio 22.9 (10-20); Bilirubin,Total 0.5 mg/dl (0.2-1.0); Calcium 7.9 mg/dl (8.6-10.3); Creatinine Clr Calc Pharmacy 40.8 ml/min; Magnesium 1.9 mg/dl (1.7-2.4); Phosphorus 4.5 mg/dl (2.5-4.9); Potassium 4.1 mmol/L (3.5-5.1); Total Protein 5.2 gm/dl (6.0-8.3)
--- NOTE | 2024-07-07 09:05 | Surgery Progress Note ---
Date of Service July 07, 2024 Assessment & Plan (1) SBO (small bowel obstruction): Plan: POD#1 ex lap w/MAEVE remove gaspar NG in place ambulate Admission and Anticipated Discharge Date Admission Date: July 04, 2024 Subjective pain controlled minimal NG output no flatus Review of Systems Constitutional: no fever and no chills Respiratory: no cough and no dyspnea Cardiovascular: no chest pain Gastrointestinal: + abdominal pain; no nausea and no vomit ing Genitourinary: no dysuria Neurologic: no localized weakness Psychiatric: no behavioral changes Physical Exam Constitutional: + thin Respiratory: normal respiratory effort, lungs clear to auscultation Cardiovascular: RRR, no murmur, no edema Gastrointestinal (Abdomen): Inspection/Auscultation: abdomen normal to inspection, + abdomen distended and + abdominal surgical incision; + abnormal bowel sounds (few sounds) Percussion/Palpation: + abdomen tender and abdomen soft; no guarding and abdomen not rigid Musculoskeletal: Head/Neck/Chest: normocephalic and head atraumatic Skin: no rashes, warm and dry Results & Data Vital Signs (Past 12 Hours) Vital Signs Temp Pulse Pulse Resp BP Pulse Ox O2 Del Method 07/07/24 07:42 36.8 C 97 H 16 127/76 96 Room Air 07/07/24 04:00 36.8 C 81 18 116/64 98 Room Air 07/06/24 23:30 36.8 C 99 H 12 124/70 94 Room Air
[2024-07-07] MEDS: LACTATED RINGER'S 1,000 ML IV SCH (10:12)
--- NOTE | 2024-07-07 11:44 | Hospitalist Progress Note ---
Date of Service July 07, 2024 Assessment & Plan (1) SBO (small bowel obstruction): Plan Pt is a 69-year-old female with past medical history significant for hypertension, hyperlipidemia, chronic hyponatremia, SIADH per records, history of seizures per records, pituitary tumor per records anxiety/mood disorder, history of microscopic colitis who presented with abdominal pain and nausea and found to have another small bowel obstruction. Patient was recently in the hospital for small bowel obstruction. At the time NG tube was placed. Patient underwent Gastrografin small bowel follow-through with small bowel obstruction protocol. No contrast proceeded into the large bowel. Because of a previous complicated surgical history, family requested transfer to higher level level of care and she was transferred to [facility] on 06/24/2024. At [place], she had bowel movements and tolerated a diet. Patient was discharged on 06/26/2024. 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 Then in the evening, patient started feeling nauseous with severe abdominal pain. Because of significant severe abdominal pain, brought her back to the hospital today. En route she vomited. Small bowel obstruction Second recent episode Repeat CT abd/pelvis noting suggestion of "mild to moderate small bowel obstruction" vs, "paralytic/brit ileus rather than mechanical obstruction." General Surgery consulted, appreciate recs. - patient initially improved with advancement to clears on 07/05/2024 -However overnight with episodes of emesis, patient reportedly refusing placement of an NG tube -Taken to the OR on 07/06/2024 -s/p "exploratory laparotomy, lysis of adhesions, small bowel resection x 2" by general surgery on 07/06/2024. patient with NG tube postop -currently NPO IV antiemetics as needed Pain control as needed IV fluids Continue to monitor Ascites Mild ascites on CAT scan Needs follow-up as outpt Chronic hyponatremia Sodium 130 on admission Known History of this Improving Hypertension On lisinopril and amlodipine IV hydralazine as needed Continue to monitor Hyperlipidemia On statin, continue Anxiety/mood disorder On buspirone and Ativan as needed On Wellbutrin History of microscopic colitis Follows with GI Diet: currently NPO postop DVT prophylaxis: SCDs and heparin subcu Dispo: Home once medically stable Admission and Anticipated Discharge Date Admission Date: July 04, 2024 Subjective patient was seen multiple times during the day Initially in the a.m. was laying in bed, stated that her mouth felt dry NG tube in place pain was well-controlled at that time Later notified by nursing that patient had been walking around in the hallways and a few hours later was having crampy abdominal pain Was requesting IV Tylenol which she stated helped her more than the narcotics Later daughter and granddaughter at bedside, decorating the room per general surgery, Dr. Cunha, he discussed starting PPN with the family tomorrow but not today Review of Systems Review of Systems: All systems reviewed & are unremarkable except as noted in Subjective Physical Exam Physical Exam: General: Alert, oriented. Psych: Appropriate mood and affect HEENT: NC/AT, NG tube in place CV: RRR Resp: no increased effort of breathing Abdomen: Soft, tender, surgical scar clean without erythema Extremities: No edema in lower extremities bilaterally. Results & Data Results & Data Vital Signs (Past 12 Hours) Vital Signs Temp Pulse Pulse Resp BP Pulse Ox O2 Del Method 07/07/24 09:58 91 H 14 136/76 97 Room Air 07/07/24 07:42 36.8 C 97 H 16 127/76 96 Room Air 07/07/24 04:00 36.8 C 81 18 116/64 98 Room Air Diagnostic Findings Abdomen/Pelvis CT 07/04/24 03:09 EXAM: CT abd pelvis IV con only CLINICAL HISTORY: N/V WITH HX OF SBO, 93 ML OPTIRAY 320 TECHNIQUE: CT of the abdomen and pelvis was performed with contrast (93 ML OPTIRAY 320), with the following protocol: axial images with, reconstructed coronal and sagittal images. One of the following dose reduction techniques was utilized for this exam: Automated exposure control, adjustment of the mA and/or kV according to patient size, and use of iterative reconstruction. COMPARISON: Comparison is made with 06/24/2024 cr and 06/21/2024 ct. FINDINGS: Abdomen: Liver: Normal in size, shape, and density. There is a 7 mm cyst in segment 8 of the liver. No masses were identified. Hepatic vasculature and biliary ducts are unremarkable. Gallbladder and Biliary System: The gallbladder is normal in size and shape. No wall thickening, pericholecystic fluid, or gallstones were identified. The common bile duct is normal in caliber without dilation. Pancreas: Pancreatic head, body, and tail are visualized and appear normal in size and density. No pancreatic masses or calcifications were noted. The pancreatic duct is not dilated. Spleen: Normal in size, shape, and density. No splenic lesions or masses were identified. Kidneys and Adrenal Glands: Both kidneys are normal in size, shape, and position. Cortical thickness is within normal limits. No renal calculi or hydronephrosis. Adrenal glands are unremarkable with no evidence of masses or hyperplasia. Pelvis: Urinary Bladder: Normal in contour and wall thickness. No intraluminal lesions were identified. Uterus: Normal in size and contour. No masses or abnormal thickening. Ovaries: Not well visualized but no gross abnormalities were noted. Vagina: Normal in contour and wall thickness. Cervix: No evidence of mass or abnormal thickening. Peritoneal and Retroperitoneal Structures: There are mild ascites. No lymphadenopathy was noted. Bowel: The colon loops are normal in calibration with fecal loading. Prominent dilatation with air-fluid leveling of the distal jejunal and ileal loops was noted. The proximal jejunal loops are normal in caliber. No significant wall thickening. No sign of appendicitis. Bones and Soft Tissues: Mild levoscoliosis noted. L4-S1 posterior fixator rods and screws noted. There are bony defects of the posterior elements of the L4 and L5 vertebrae. L4-L5 disc spacer noted. Decreased heights of the L3-L4 and L5-S1 discs with bulgings were noted. There are osteophytes with facet joints hypertrophies of the lumbar spine. Pelvic bones and soft tissues are unremarkable. No fractures or abnormal masses were identified. IMPRESSION: 1. Prominent dilatation and air-fluid leveling of the distal jejunal and ileal loops without a significant point of transition. This finding is suggestive of mild to moderate small bowel obstruction. On the other hand, there is fecal loading of the colon loops and air traced up to the rectum, thus these findings might be secondary to paralytic/brit ileus rather than mechanical obstruction. Please correlate clinically. 2. Mild ascites. 3. Other findings are in the report. 4. When compared to prior examination: The ascites show interval regression. Previously the small bowel dilatation was also evident on the proximal jejunal loops, whereas now they are in normal calibration. Fecal loading of the colon loops is more prominent at this time. Other findings are similar. Electronically signed by Edward Molina 07-04-2024 04:38 AM
--- NOTE | 2024-07-07 13:11 | Electrocardiogram Report ---
Test Reason : Blood Pressure : */* mmHG Vent. Rate : 77 BPM Atrial Rate : 77 BPM P-R Int : 132 ms QRS Dur : 72 ms QT Int : 370 ms P-R-T Axes : -4 -13 52 degrees QTcB Int : 418 ms Normal sinus rhythm Low voltage QRS Borderline ECG When compared with ECG of 04-Jul-2024 02:40, No significant change was found Confirmed by Mathew Schwab ([id number]) on 07/07/2024 1:11:36 PM Referred By: REFERRED SELF Confirmed By: Mathew Schwab
[2024-07-07] MEDS: ACETAMINOPHEN 1,000 MG/100 ML VIAL IV PRN (13:37)
[2024-07-08 07:11] LABS: Basophils # (auto) 0.04 K/uL (0.00-0.20); Basophils % (auto) 0.4 %; Eosinophils # (auto) 0.05 K/uL (0.00-0.50); Eosinophils % (auto) 0.5 %; Hematocrit (blood only) 28.6 % (37.0-47.0); Hemoglobin 9.8 g/dl (12.0-16.0); Immature Granulocytes # (auto) 0.04 K/uL (0.01-0.20); Immature Granulocytes % (auto) 0.4 %; Lymphocytes # (auto) 0.77 K/uL (1.20-3.40); Lymphocytes % (auto) 7.6 %; Mean Corpuscular Hgb Conc 34.3 g/dL (32.0-36.0); Mean Corpuscular Volume 96.3 fL (80.0-100.0); Mean Platelet Volume 9.9 fL (9.4-12.4); Monocytes # (auto) 0.78 K/uL (0.11-0.59); Monocytes % (auto) 7.7 %; Neutrophils # (auto) 8.49 K/uL (1.40-6.50); Neutrophils % (auto) 83.4 %; Platelet Count 234 K/uL (130-400); RDW Coefficient of Variation 13.8 % (11.5-14.5); RDW Standard Deviation 48.9 fL (36.4-46.3); Red Blood Count 2.97 M/uL (4.20-5.40); White Blood Count 10.17 K/ul (4.8-10.8)
[2024-07-08 07:37] LABS: Albumin Globulin Ratio 1.4 (0.9-2); BUN Creatinine Ratio 37.1 (10-20); Bilirubin,Total 0.5 mg/dl (0.2-1.0); Creatinine Clr Calc Pharmacy 71.7 ml/min; Globulin 2.1 gm/dl (2.5-4.0); Magnesium 1.9 mg/dl (1.7-2.4); Phosphorus 1.8 mg/dl (2.5-4.9); Total Protein 5.1 gm/dl (6.0-8.3)
[2024-07-08 07:50] LABS: Potassium 3.8 mmol/L (3.5-5.1)
[2024-07-08] MEDS ORDERED: POTASSIUM PHOS 3 MMOL/1 ML INFUSION IV STA (08:37)
[2024-07-08] MEDS ORDERED: DEXTROSE 10% 1,000 ML IV PRN (09:55)
[2024-07-08] MEDS: POTASSIUM PHOSPHATE 21 MMOL in SODIUM CHLORIDE 0.9% 500 ML IV ONE (09:55)
[2024-07-08] MEDS ORDERED: TPN/PPN CONSULT PHARMACY STA (09:55)
--- NOTE | 2024-07-08 09:56 | Surgery Progress Note ---
Date of Service July 08, 2024 Assessment & Plan (1) SBO (small bowel obstruction): Plan: passing a little flastus; clamp NG possibly out tonight sips/chips begin PPN ambulate Admission and Anticipated Discharge Date Admission Date: July 04, 2024 Subjective passing a little flatus pain controlled ambulating well Review of Systems Constitutional: no fever and no chills Respiratory: no cough and no dyspnea Cardiovascular: no chest pain Gastrointestinal: + abdominal pain and + change in bowel h abits; no nausea and no vomiting Neurologic: no localized weakness Psychiatric: no behavioral changes Physical Exam Constitutional: WD/WN, vitals as above Respiratory: normal respiratory effort, lungs clear to auscultation Cardiovascular: RRR, no murmur, no edema Gastrointestinal (Abdomen): Inspection/Auscultation: abdomen normal to inspection, + abdomen distended and normal bowel sounds Percussion/Palpation: + abdomen tender and abdomen soft; no guarding and abdomen not rigid Musculoskeletal: Head/Neck/Chest: normocephalic and head atraumatic Skin: no rashes, warm and dry Results & Data Vital Signs (Past 12 Hours) Vital Signs Temp Pulse Resp BP Pulse Ox O2 Del Method 07/08/24 07:59 36.7 C 92 H 16 156/82 H 97 Room Air
[2024-07-08] MEDS ORDERED: TPN/PPN CONSULT PHARMACY PRN (09:58)
[2024-07-08] MEDS: KETOROLAC TROMETHAMINE 15 MG/ML VIAL IV ONE (14:32)
--- NOTE | 2024-07-08 14:58 | Hospitalist Progress Note ---
Date of Service July 08, 2024 Assessment & Plan (1) SBO (small bowel obstruction): Plan Pt is a 69-year-old female with past medical history significant for hypertension, hyperlipidemia, chronic hyponatremia, SIADH per records, history of seizures per records, pituitary tumor per records anxiety/mood disorder, history of microscopic colitis who presented with abdominal pain and nausea and found to have another small bowel obstruction. Patient was recently in the hospital for small bowel obstruction. At the time NG tube was placed. Patient underwent Gastrografin small bowel follow-through with small bowel obstruction protocol. No contrast proceeded into the large bowel. Because of a previous complicated surgical history, family requested transfer to higher level level of care and she was transferred to [facility] on 06/24/2024. At [place], she had bowel movements and tolerated a diet. Patient was discharged on 06/26/2024. 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 Then in the evening, patient started feeling nauseous with severe abdominal pain. Because of significant severe abdominal pain, brought her back to the hospital today. En route she vomited. Small bowel obstruction Second recent episode Repeat CT abd/pelvis noting suggestion of "mild to moderate small bowel obstruction" vs, "paralytic/brit ileus rather than mechanical obstruction." General Surgery consulted, appreciate recs. - patient initially improved with advancement to clears on 07/05/2024 -However overnight with episodes of emesis, patient reportedly refusing placement of an NG tube -Taken to the OR on 07/06/2024 -s/p "exploratory laparotomy, lysis of adhesions, small bowel resection x 2" by general surgery on 07/06/2024. patient with NG tube postop -currently NPO, advanced to clears Per General Surgery on 07/08/24- start PPN, ppn ordered IV antiemetics as needed Pain control as needed IV fluids discontinued Continue to monitor Ascites Mild ascites on CAT scan Needs follow-up as outpt Chronic hyponatremia Sodium 130 on admission Known History of this Improving Hypertension On lisinopril and amlodipine IV hydralazine as needed Continue to monitor Hyperlipidemia On statin, continue Anxiety/mood disorder On buspirone and Ativan as needed On Wellbutrin History of microscopic colitis Follows with GI Diet: currently NPO postop DVT prophylaxis: SCDs and heparin subcu Dispo: Home once medically stable Admission and Anticipated Discharge Date Admission Date: July 04, 2024 Subjective patient was seen with her at bedside She was sitting up in a chair, NG tube was not placed at that time but per surgery there were plans to have it removed by the end of the day Denied any nausea at that time States she has been up and walking around Later notified by nursing that patient did not want another IV and would like to try oral Tylenol and ibuprofen Per general surgery can start PPN today Review of Systems Review of Systems: All systems reviewed & are unremarkable except as noted in Subjective Physical Exam Physical Exam: General: Alert, oriented. Psych: Appropriate mood and affect HEENT: NC/AT, NG tube in place CV: RRR Resp: no increased effort of breathing Abdomen: Soft, tende Extremities: No edema in lower extremities bilaterally. Results & Data Results & Data Vital Signs (Past 12 Hours) Vital Signs Temp Pulse Resp BP Pulse Ox O2 Del Method 07/08/24 14:32 36.9 C 91 H 16 151/88 H 98 Room Air 07/08/24 07:59 36.7 C 92 H 16 156/82 H 97 Room Air
--- NOTE | 2024-07-08 15:24 | Pharmacy Report ---
Pharmacy Initial PN Consult Nt - Date of Service July 08, 2024 - [facility] Pharmacy has been consulted on this date to manage parenteral nutrition orders and order appropriate labs. As part of the Nutrition Support Team Guidelines, pharmacy will work in conjunction with dietary when determining the patients caloric needs. - Subjective * The patient is a 69 year old Female admitted on 07/04/24 for SBO. * Patient is to receive parenteral nutrition for SBO. * Pertinent PMHx: small bowel resection 07/06, recurrent SBO (second recent episode), microscopic colitis - Objective Vascular Access: * Patient currently has a peripheral line. * Peripheral line was confirmed by IV Team to be acceptable for PPN use on 07/08/24. Height & Weight (Last Documented) Height 5 ft 7 in Weight 53.8 kg Diet Order(s) 07/08/24 Lunch Diet Intake & Ouput (24hrs) 07/07/24 07/08/24 07/09/24 06:59 06:59 06:59 Intake Total 1100 / 1100 1166.667 / 1166.667 996.667 / 996.667 Output Total 590 / 590 100 / 100 Balance 510 / 510 1066.667 / 1066.667 996.667 / 996.667 Selected Laboratory Results 07/08/24 06:33 Sodium 138 Potassium 3.8 Chloride 106 Carbon Dioxide 23 Anion Gap 9 BUN 23 Creatinine 0.62 D BUN/Creatinine Ratio 37.1 H Glucose 80 Calcium 8.0 L Phosphorus 1.8 L D Magnesium 1.9 Total Bilirubin 0.5 AST 14 ALT [address] - Initial Nutrition Assessment Start: 07/08/24 10:13 Freq: Status: Active Protocol: Document 07/08/24 10:14 WN (Rec: 07/08/24 10:30 WN [id number]) - Assessment & Plan Assessment: * Appreciate dietitians recommendations for macronutrients. * Noted low phosphorus this AM, replaced by hospitalist before PPN consult Plan: * For Day #1 of PPN administration, the following will be ordered: * Macronutrients: * Amino Acids: 85 grams/day * Dextrose: 100 grams/day * Lipids: 50 grams/day * Micronutrients: * TPN electrolytes: 40 mL/day - Contains 35 mEq Na, 20 mEq K, 4.5 mEq Ca, 5 mEq Mg, 35 mEq Cl, 29.5 mEq Acetate per 20 mL * Sodium phosphate: 30 mMol/day * Potassium chloride: 40 mEq/day * Multivitamins: 10 mL/day * Trace elements: 1 mL/day * Thiamine: 100 mg/day * Total volume of 2082 mL will be infused over 24 hours and will provide 1180 kcal/day * Patient is on PPN which has a maximum mOsm/L of 900. Final osmolarity of current solution is 839 mOsm/L. * Labs will be ordered per PN protocol. * Pharmacy will follow and adjust PN orders on a daily basis. Thank you!
[2024-07-08] MEDS ORDERED: CLINOLIPID 20% IV FAT EMULSION 100 ML IV SCH (16:00)
[2024-07-08] MEDS: [UNRECOGNIZED DRUG - OTHER] IV SCH (16:23)
[2024-07-08] MEDS: PERIPHERAL TPN IV SCH (16:23)
[2024-07-08] MEDS: CLINOLIPID 20% IV FAT EMULSION 250 ML IV SCH (16:23)
[2024-07-08] MEDS: ACETAMINOPHEN 500 MG TAB PO PRN (17:10)
[2024-07-08] MEDS ORDERED: IBUPROFEN 600 MG TAB PO PRN (18:00)
[2024-07-08] MEDS: traMADol HCL 50 MG TABLET PO PRN (21:42)
[2024-07-08] MEDS: STOP CLINOLIPID SCH (21:43)
[2024-07-09 06:31] LABS: Basophils # (auto) 0.03 K/uL (0.00-0.20); Basophils % (auto) 0.4 %; Eosinophils % (auto) 1.2 %; Hematocrit (blood only) 28.3 % (37.0-47.0); Hemoglobin 9.7 g/dl (12.0-16.0); Immature Granulocytes # (auto) 0.05 K/uL (0.01-0.20); Immature Granulocytes % (auto) 0.6 %; Lymphocytes # (auto) 0.54 K/uL (1.20-3.40); Lymphocytes % (auto) 6.6 %; Mean Corpuscular Hemoglobin 32.3 pg (25.0-34.0); Mean Corpuscular Hgb Conc 34.3 g/dL (32.0-36.0); Mean Corpuscular Volume 94.3 fL (80.0-100.0); Mean Platelet Volume 9.6 fL (9.4-12.4); Monocytes # (auto) 0.67 K/uL (0.11-0.59); Monocytes % (auto) 8.2 %; Neutrophils # (auto) 6.76 K/uL (1.40-6.50); Platelet Count 245 K/uL (130-400); RDW Coefficient of Variation 13.6 % (11.5-14.5); RDW Standard Deviation 46.6 fL (36.4-46.3); White Blood Count 8.15 K/ul (4.8-10.8)
[2024-07-09 06:50] LABS: Albumin Globulin Ratio 1.3 (0.9-2); BUN Creatinine Ratio 43.6 (10-20); Bilirubin,Total 0.5 mg/dl (0.2-1.0); Calcium 7.9 mg/dl (8.6-10.3); Globulin 2.4 gm/dl (2.5-4.0); Magnesium 1.8 mg/dl (1.7-2.4); Phosphorus 1.9 mg/dl (2.5-4.9); Potassium 3.6 mmol/L (3.5-5.1); Total Protein 5.4 gm/dl (6.0-8.3)
[2024-07-09] MEDS ORDERED: POTASSIUM PHOS 3 MMOL/1 ML INFUSION IV STA (09:31)
--- NOTE | 2024-07-09 10:48 | Surgery Progress Note ---
Date of Service July 09, 2024 Assessment & Plan (1) SBO (small bowel obstruction): Plan: great progress full liquids con't PPN until eating better Admission and Anticipated Discharge Date Admission Date: July 04, 2024 Subjective doing great ambulating NG out clears Review of Systems Constitutional: no fever and no chills Respiratory: no cough and no dyspnea Cardiovascular: no chest pain Gastrointestinal: + abdominal pain; no nausea and no vomit ing Neurologic: no localized weakness Psychiatric: no behavioral changes Physical Exam Constitutional: + thin Respiratory: normal respiratory effort, lungs clear to auscultation Cardiovascular: RRR, no murmur, no edema Gastrointestinal (Abdomen): Inspection/Auscultation: abdomen normal to inspection and normal bowel sounds; abdomen not distended Percussion/Palpation: abdomen soft; abdomen nontender Musculoskeletal: Head/Neck/Chest: normocephalic and head atraumatic Results & Data Vital Signs (Past 12 Hours) Vital Signs Temp Pulse Resp BP Pulse Ox O2 Del Method 07/09/24 07:34 36.9 C 92 H 16 145/83 H 96 Room Air
[2024-07-09] MEDS ORDERED: [UNRECOGNIZED DRUG - OTHER] IV SCH (11:30)
[2024-07-09] MEDS ORDERED: PERIPHERAL TPN IV SCH (11:30)
[2024-07-09] MEDS: CALCIUM GLUCONATE 1,000 MG/60 ML BAG IV SCH (11:37)
--- NOTE | 2024-07-09 11:56 | Hospitalist Progress Note ---
Date of Service July 09, 2024 Assessment & Plan (1) SBO (small bowel obstruction): Plan Pt is a 69-year-old female with past medical history significant for hypertension, hyperlipidemia, chronic hyponatremia, SIADH per records, history of seizures per records, pituitary tumor per records anxiety/mood disorder, history of microscopic colitis who presented with abdominal pain and nausea and found to have another small bowel obstruction. Patient was recently in the hospital for small bowel obstruction. At the time NG tube was placed. Patient underwent Gastrografin small bowel follow-through with small bowel obstruction protocol. No contrast proceeded into the large bowel. Because of a previous complicated surgical history, family requested transfer to higher level level of care and she was transferred to [facility] on 06/24/2024. At [place], she had bowel movements and tolerated a diet. Patient was discharged on 06/26/2024. 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 Then in the evening, patient started feeling nauseous with severe abdominal pain. Because of significant severe abdominal pain, brought her back to the hospital today. En route she vomited. Small bowel obstruction Second recent episode Repeat CT abd/pelvis noting suggestion of "mild to moderate small bowel obstruction" vs, "paralytic/brit ileus rather than mechanical obstruction." General Surgery consulted, appreciate recs. - patient initially improved with advancement to clears on 07/05/2024 -However overnight with episodes of emesis, patient reportedly refusing placement of an NG tube -Taken to the OR on 07/06/2024 -s/p "exploratory laparotomy, lysis of adhesions, small bowel resection x 2" by general surgery on 07/06/2024. patient with NG tube postop -currently on clears, advanced to full Per General Surgery on 07/08/24- start PPN, ppn ordered IV antiemetics as needed Pain control as needed IV fluids discontinued Continue to monitor Hypophosphatemia Hypocalcemia replete as needed Ascites Mild ascites on CAT scan Needs follow-up as outpt Chronic hyponatremia Sodium 130 on admission Known History of this Improving Hypertension On lisinopril and amlodipine IV hydralazine as needed Continue to monitor Hyperlipidemia On statin, continue Anxiety/mood disorder On buspirone and Ativan as needed On Wellbutrin History of microscopic colitis Follows with GI Diet: advancing diet as tolerated DVT prophylaxis: SCDs and heparin subcu Dispo: Home once medically stable Admission and Anticipated Discharge Date Admission Date: July 04, 2024 Subjective Patient was seen sitting up in bed Stated at that time that her pain was well-controlled and noted that she has been tolerating the clears well Pain controlled with as needed tramadol Stated she had been up and moving NG tube has been removed Review of Systems Review of Systems: All systems reviewed & are unremarkable except as noted in Subjective Physical Exam Physical Exam: General: Alert, oriented. Psych: Appropriate mood and affect HEENT: NC/AT CV: RRR Resp: no increased effort of breathing Abdomen: Soft, tender, bandage in place Extremities: No edema in lower extremities bilaterally. Results & Data Results & Data Vital Signs (Past 12 Hours) Vital Signs Temp Pulse Resp BP Pulse Ox O2 Del Method 07/09/24 07:34 36.9 C 92 H 16 145/83 H 96 Room Air
[2024-07-09] MEDS: POTASSIUM PHOSPHATE 21 MMOL in SODIUM CHLORIDE 0.9% 500 ML IV ONE (12:15)
[2024-07-09] MEDS: POT PHOSPHATE MONOBASIC W/ SOD TAB PO SCH (12:15)
[2024-07-09] MEDS: PERIPHERAL TPN IV SCH (16:26)
[2024-07-09] MEDS: [UNRECOGNIZED DRUG - OTHER] IV SCH (16:26)
[2024-07-09] MEDS: CLINOLIPID 20% IV FAT EMULSION 250 ML IV SCH (16:26)
[2024-07-09] MEDS: CALCIUM 600MG + VIT D 400 IU TAB PO SCH (20:03)
[2024-07-10 07:04] LABS: Basophils # (auto) 0.03 K/uL (0.00-0.20); Basophils % (auto) 0.5 %; Eosinophils # (auto) 0.08 K/uL (0.00-0.50); Eosinophils % (auto) 1.2 %; Hematocrit (blood only) 28.9 % (37.0-47.0); Hemoglobin 10.1 g/dl (12.0-16.0); Immature Granulocytes # (auto) 0.04 K/uL (0.01-0.20); Immature Granulocytes % (auto) 0.6 %; Lymphocytes # (auto) 0.54 K/uL (1.20-3.40); Lymphocytes % (auto) 8.2 %; Mean Corpuscular Hemoglobin 32.7 pg (25.0-34.0); Mean Corpuscular Hgb Conc 34.9 g/dL (32.0-36.0); Mean Corpuscular Volume 93.5 fL (80.0-100.0); Mean Platelet Volume 9.5 fL (9.4-12.4); Monocytes # (auto) 0.73 K/uL (0.11-0.59); Monocytes % (auto) 11.1 %; Neutrophils # (auto) 5.18 K/uL (1.40-6.50); Neutrophils % (auto) 78.4 %; Platelet Count 232 K/uL (130-400); RDW Coefficient of Variation 13.6 % (11.5-14.5); RDW Standard Deviation 46.4 fL (36.4-46.3); Red Blood Count 3.09 M/uL (4.20-5.40)
[2024-07-10 07:29] LABS: Albumin Globulin Ratio 1.3 (0.9-2); Albumin Level 2.9 gm/dl (3.4-5.0); BUN Creatinine Ratio 40.5 (10-20); Bilirubin,Total 0.6 mg/dl (0.2-1.0); Globulin 2.3 gm/dl (2.5-4.0); Magnesium 1.6 mg/dl (1.7-2.4); Phosphorus 3.1 mg/dl (2.5-4.9); Potassium 3.9 mmol/L (3.5-5.1); Total Protein 5.2 gm/dl (6.0-8.3)
[2024-07-10] MEDS: MAGNESIUM OXIDE 400 MG TAB PO SCH (10:43)
[2024-07-10] MEDS: CALCIUM GLUCONATE 1,000 MG/60 ML BAG IV STA (10:46)
--- NOTE | 2024-07-10 13:44 | Hospitalist Progress Note ---
Date of Service July 10, 2024 Assessment & Plan (1) SBO (small bowel obstruction): Plan Pt is a 69-year-old female with past medical history significant for hypertension, hyperlipidemia, chronic hyponatremia, SIADH per records, history of seizures per records, pituitary tumor per records anxiety/mood disorder, history of microscopic colitis who presented with abdominal pain and nausea and found to have another small bowel obstruction. Patient was recently in the hospital for small bowel obstruction. At the time NG tube was placed. Patient underwent Gastrografin small bowel follow-through with small bowel obstruction protocol. No contrast proceeded into the large bowel. Because of a previous complicated surgical history, family requested transfer to higher level level of care and she was transferred to [facility] on 06/24/2024. At [place], she had bowel movements and tolerated a diet. Patient was discharged on 06/26/2024. 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 Then in the evening, patient started feeling nauseous with severe abdominal pain. Because of significant severe abdominal pain, brought her back to the hospital today. En route she vomited. Small bowel obstruction Second recent episode Repeat CT abd/pelvis noting suggestion of "mild to moderate small bowel obstruction" vs, "paralytic/brit ileus rather than mechanical obstruction." General Surgery consulted, appreciate recs. - patient initially improved with advancement to clears on 07/05/2024 -However overnight with episodes of emesis, patient reportedly refusing placement of an NG tube -Taken to the OR on 07/06/2024 -s/p "exploratory laparotomy, lysis of adhesions, small bowel resection x 2" by general surgery on 07/06/2024. patient with NG tube postop. NG tube removed on 07/10 -advanced to full liquids at this time Per General Surgery on 07/08/24- start PPN, ppn ordered. Discontinued on 07/09 IV antiemetics as needed Pain control as needed IV fluids discontinued Continue to monitor Hypophosphatemia Hypocalcemia replete as needed Ascites Mild ascites on CAT scan Needs follow-up as outpt Chronic hyponatremia Sodium 130 on admission Known History of this Improving Hypertension On lisinopril and amlodipine IV hydralazine as needed Continue to monitor Hyperlipidemia On statin, continue Anxiety/mood disorder On buspirone and Ativan as needed On Wellbutrin History of microscopic colitis Follows with GI Diet: advancing diet as tolerated DVT prophylaxis: SCDs and heparin subcu Dispo: Home once medically stable Admission and Anticipated Discharge Date Admission Date: July 04, 2024 Subjective patient was seen laying in bed noted that she was a bit tired at the time of exam States she has been up and walking States she is on fulls and finally had a good day with eating Review of Systems Review of Systems: All systems reviewed & are unremarkable except as noted in Subjective Physical Exam Physical Exam: General: Alert, oriented. Psych: Appropriate mood and affect HEENT: NC/AT CV: RRR Resp: no increased effort of breathing Abdomen: Soft, tender, bandage in place Extremities: No edema in lower extremities bilaterally. Results & Data Results & Data Vital Signs (Past 12 Hours) Vital Signs Temp Pulse Resp BP Pulse Ox O2 Del Method 07/10/24 07:30 36.8 C 98 H 20 133/82 98 Room Air
[2024-07-10] MEDS ORDERED: PERIPHERAL TPN IV SCH (16:00)
[2024-07-10] MEDS ORDERED: CLINOLIPID 20% IV FAT EMULSION 250 ML IV SCH (16:00)
[2024-07-10] MEDS ORDERED: [UNRECOGNIZED DRUG - OTHER] IV SCH (16:00)
--- NOTE | 2024-07-10 16:37 | Surgery Progress Note ---
Date of Service July 10, 2024 Assessment & Plan (1) Small bowel obstruction due to adhesions: Plan: Exploratory Laparotomy, Lysis of Adhesion, and Small Bowel Resection 07/[address] Chavez tolerating fulls , not much appetite will keep on fulls for now expected post operative discomfort VSS , wbc wnl , h/h stable abd binder for comfort can d/c ppn +flatus no bm yet would hold Miralax pt seen and examined with Dr. Dowd as above. doing well. keep on fulls for now. stop miralax. d/c planning Admission and Anticipated Discharge Date Admission Date: July 04, 2024 Subjective denies n/v passing flatus Review of Systems Constitutional: no fever and no chills Respiratory: no dyspnea Cardiovascular: no chest pain Gastrointestinal: + abdominal pain; no nausea and no vomit ing Psychiatric: no confusion Physical Exam Constitutional: cooperative and comfortable; no acute distress Respiratory: normal respiratory effort and able to speak in complete sentences; no respiratory distress Cardiovascular: Rate/Rhythm: + tachycardic (93) Psychiatric: Orientation: alert and oriented x 3 Results & Data Vital Signs (Past 12 Hours) Vital Signs Temp Pulse Resp BP BP Pulse Ox O2 Del Method 07/10/24 15:35 98.2 F 93 H 18 133/79 97 Room Air 07/10/24 07:30 98.2 F 98 H 20 133/82 98 Room Air PG Care Time/CCT Total # of Minutes Spent Total Time Spent with Patient: Total time spent is greater than 50% in coordination of care (as documented) at patient's floor/unit and/or counseling patient: Coding Level of Care Code 75626 Post Operative Follow-Up Diagnoses Small bowel obstruction due to adhesions K56.50
[2024-07-11 06:46] LABS: Basophils % (auto) 0.5 %; Eosinophils % (auto) 0.6 %; Hematocrit (blood only) 31.1 % (37.0-47.0); Hemoglobin 10.8 g/dl (12.0-16.0); Immature Granulocytes % (auto) 0.5 %; Lymphocytes # (auto) 0.85 K/uL (1.20-3.40); Lymphocytes % (auto) 10.9 %; Mean Corpuscular Hemoglobin 32.3 pg (25.0-34.0); Mean Corpuscular Hgb Conc 34.7 g/dL (32.0-36.0); Mean Corpuscular Volume 93.1 fL (80.0-100.0); Mean Platelet Volume 9.4 fL (9.4-12.4); Monocytes % (auto) 14.1 %; Neutrophils % (auto) 73.4 %; Platelet Count 275 K/uL (130-400); RDW Coefficient of Variation 13.8 % (11.5-14.5); RDW Standard Deviation 47.1 fL (36.4-46.3); Red Blood Count 3.34 M/uL (4.20-5.40); White Blood Count 7.78 K/ul (4.8-10.8)
[2024-07-11 06:47] LABS: Basophils # (auto) 0.04 K/uL (0.00-0.20); Eosinophils # (auto) 0.05 K/uL (0.00-0.50); Immature Granulocytes # (auto) 0.04 K/uL (0.01-0.20)
[2024-07-11 06:59] LABS: Albumin Globulin Ratio 1.2 (0.9-2); Albumin Level 3.1 gm/dl (3.4-5.0); BUN Creatinine Ratio 24.4 (10-20); Bilirubin,Total 0.7 mg/dl (0.2-1.0); Calcium 8.3 mg/dl (8.6-10.3); Creatinine Clr Calc Pharmacy 97.5 ml/min; Globulin 2.5 gm/dl (2.5-4.0); Magnesium 1.6 mg/dl (1.7-2.4); Phosphorus 3.2 mg/dl (2.5-4.9); Potassium 3.7 mmol/L (3.5-5.1); Total Protein 5.6 gm/dl (6.0-8.3)
--- NOTE | 2024-07-11 09:11 | Surgery Progress Note ---
Date of Service July 11, 2024 Assessment & Plan (1) SBO (small bowel obstruction): Plan: 07/06/24 Exploratory Laparotomy, Lysis of Adhesion, and Small Bowel Resection with Dr Chavez + flatus , no Bm keep on fulls for now until return of bowel function abd incision gabrielle with erythema , edema inferior aspect , warm to touch , small firm area noted to right of staple line possible p/o hematoma vs infection no drainage noted on dressing, VSS, afebrile , WBC WNL will reassess with donkey engine firer/fireman surgeon Dr. Dowd later this AM reached out to hospitalist to assist with anxiety/depression medication OOB ambulation as tolerated will follow as above. pt with wound infection. several staple removed and the wound probed. a large amount of foul smelling purulent fluid obtained. wound cultured, irrigated and packed will start antibiotics. discussed wound care with nurse Admission and Anticipated Discharge Date Admission Date: July 04, 2024 Subjective increase in abdominal pain/discomfort last night passed some flatus and felt some relief and pt concerned with anxiety/depression no bm to date post surgery Review of Systems Constitutional: no fever and no chills Respiratory: no dyspnea Cardiovascular: no chest pain Gastrointestinal: + abdominal pain and + bloating; no naus ea and no vomiting Musculoskeletal: no muscle weakness Psychiatric: + depression and + anxiety Physical Exam Constitutional: cooperative; no acute distress Respiratory: normal respiratory effort; no respiratory distress Cardiovascular: Rate/Rhythm: + tachycardic (98) Gastrointestinal (Abdomen): Inspection/Auscultation: + abdominal surgical incision (gabrielle , erythema , edema inferior aspect , no drainage on dressing ) Percussion/Palpation: + abdomen tender and abdomen soft Psychiatric: Orientation: alert and oriented x 3 Apperance: appropriately groomed Eye Contact: good eye contact Affect: + tearful affect (at times ) Results & Data Vital Signs (Past 12 Hours) Vital Signs Temp Pulse Resp BP Pulse Ox O2 Del Method 07/11/24 08:11 98.1 F 98 H 18 127/80 97 Room Air Results CBC w Diff Results: RBC 3.34 M/uL (4.20-5.40) L 07/11/24 WBC 7.78 K/ul (4.8-10.8) 07/11/24 Hgb 10.8 g/dl (12.0-16.0) L 07/11/24 Hct 31.1 % (37.0-47.0) L 07/11/24 MCV 93.1 fL (80.0-100.0) 07/11/24 MCH 32.3 pg (25.0-34.0) 07/11/24 MCHC 34.7 g/dL (32.0-36.0) 07/11/24 RDW Standard Deviation 47.1 fL (36.4-46.3) H 07/11/24 RDW Coefficient of Variation 13.8 % (11.5-14.5) 07/11/24 Plt Count 275 K/uL (130-400) 07/11/24 MPV 9.4 fL (9.4-12.4) 07/11/24 Neutrophils (%) (Auto) 73.4 % 07/11/24 Lymphocytes (%) (Auto) 10.9 % 07/11/24 Monocytes # (Auto) 1.10 K/uL (0.11-0.59) H 07/11/24 Eosinophils # (Auto) 0.05 K/uL (0.00-0.50) 07/11/24 Immature Granulocyte % (Auto) 0.5 % 07/11/24 Neutrophils # (Auto) 5.70 K/uL (1.40-6.50) 07/11/24 Lymphocytes # (Auto) 0.85 K/uL (1.20-3.40) L 07/11/24 Monocytes # (Auto) 1.10 K/uL (0.11-0.59) H 07/11/24 Eosinophils # (Auto) 0.05 K/uL (0.00-0.50) 07/11/24 Basophils # (Auto) 0.04 K/uL (0.00-0.20) 07/11/24 Immature Granulocyte # (Auto) 0.04 K/uL (0.01-0.20) 4 PG Care Time/CCT Total # of Minutes Spent Total Time Spent with Patient: Total time spent is greater than 50% in coordination of care (as documented) at patient's floor/unit and/or counseling patient: Coding Level of Care Code 99869 Post Operative Follow-Up Diagnoses SBO (small bowel obstruction) K56.609
[2024-07-11] MEDS: PIPERACILLIN/TAZOBACTAM 4.5 GM/100 ML BAG IV STA (12:53)
--- NOTE | 2024-07-11 14:39 | Hospitalist Progress Note ---
Date of Service July 11, 2024 Assessment & Plan (1) SBO (small bowel obstruction): Plan Pt is a 69-year-old female with past medical history significant for hypertension, hyperlipidemia, chronic hyponatremia, SIADH per records, history of seizures per records, pituitary tumor per records anxiety/mood disorder, history of microscopic colitis who presented with abdominal pain and nausea and found to have another small bowel obstruction. Patient was recently in the hospital for small bowel obstruction. At the time NG tube was placed. Patient underwent Gastrografin small bowel follow-through with small bowel obstruction protocol. No contrast proceeded into the large bowel. Because of a previous complicated surgical history, family requested transfer to higher level level of care and she was transferred to [facility] on 06/24/2024. At [place], she had bowel movements and tolerated a diet. Patient was discharged on 06/26/2024. The morning PROJECT MANAGEMENT, patient had a normal bowel movement. Then in the evening, patient started feeling nauseous with severe abdominal pain. Because of significant severe abdominal pain, brought her back to the hospital today. En route she vomited. Small bowel obstruction Second recent episode Repeat CT abd/pelvis noting suggestion of "mild to moderate small bowel obstruction" vs, "paralytic/brit ileus rather than mechanical obstruction." General Surgery consulted, appreciate recs. - patient initially improved with advancement to clears on 07/05/2024 after admission -However overnight with episodes of emesis, patient refusing placement of an NG tube -Taken to the OR on 07/06/2024 -s/p "exploratory laparotomy, lysis of adhesions, small bowel resection x 2" by general surgery on 07/06/2024. patient with NG tube postop. NG tube removed on 07/10 -advanced to full liquids at this time, tolerating -On 07/11/24, concern for surgical site infection, s/p I&D, started on IV Zosyn, follow wound cx and narrow abx as needed based on cx Per General Surgery on 07/08/24- start PPN, ppn ordered. Discontinued on 07/09 IV antiemetics as needed Pain control as needed IV fluids discontinued Continue to monitor Hypophosphatemia Hypocalcemia Hypomagnesemia replete as needed Anxiety/mood disorder On buspirone 10mg TID and Ativan as needed On Wellbutrin for MDD Discussion with pt on 07/11- she states that she takes an additional 1-2 buspar 10mg pills for anxiety in addition to the 10mg TID scheduled. Discussion that max recommended dose is 30mg, pt notes she was told this before and is agreeable to whatever is recommended. Discussion of occasional extra benzos to help her anxiety in the hospital and with everything she is currently through, while also cautiously monitoring given her concurrent use of narcoticis, prn po tramadol and dilaudid. Pt agreeable to the plan. Ascites Mild ascites on CAT scan Needs follow-up as outpt Chronic hyponatremia Sodium 130 on admission Known History of this Improving Hypertension On lisinopril and amlodipine IV hydralazine as needed Continue to monitor Hyperlipidemia On statin, continue History of microscopic colitis Follows with GI Diet: advancing diet as tolerated DVT prophylaxis: SCDs and heparin subcu Dispo: Home once medically stable Admission and Anticipated Discharge Date Admission Date: July 04, 2024 Subjective Pt was seen laying in bed, later in the day after her surgical scar was incised and drained. In the AM, reports from nursing pt was asking about her extra dose of buspar that she takes at home to help with anxiety. Phone call to pt in the AM, notes she has heard that with the extra doses her buspar might be exceeding the daily recommended dose. She is agreeable to occasional prn Ativan doses. Review of Systems Review of Systems: All systems reviewed & are unremarkable except as noted in Subjective Physical Exam Physical Exam: General: Alert, oriented. Psych: Appropriate mood and affect HEENT: NC/AT CV: RRR Resp: no increased effort of breathing Abdomen: Soft, tender, bandage in place Extremities: No edema in lower extremities bilaterally. Results & Data Results & Data Vital Signs (Past 12 Hours) Vital Signs Temp Pulse Resp BP Pulse Ox O2 Del Method 07/11/24 08:11 36.7 C 98 H 18 127/80 97 Room Air
[2024-07-11] MEDS: PIPERACILLIN/TAZOBACTAM 4.5 GM/100 ML BAG IV SCH (17:18)
[2024-07-11 20:09] VITALS: RESP 16
[2024-07-12] MEDS: MAGNESIUM SULFATE / D5W 1 GM/100 ML BAG IV SCH (00:24)
[2024-07-12 08:45] LABS: Basophils # (auto) 0.03 K/uL (0.00-0.20); Basophils % (auto) 0.5 %; Eosinophils % (auto) 1.6 %; Hemoglobin 9.3 g/dl (12.0-16.0); Immature Granulocytes # (auto) 0.03 K/uL (0.01-0.20); Immature Granulocytes % (auto) 0.5 %; Lymphocytes # (auto) 0.85 K/uL (1.20-3.40); Lymphocytes % (auto) 13.4 %; Mean Corpuscular Hemoglobin 32.4 pg (25.0-34.0); Mean Corpuscular Hgb Conc 34.4 g/dL (32.0-36.0); Mean Corpuscular Volume 94.1 fL (80.0-100.0); Mean Platelet Volume 9.5 fL (9.4-12.4); Monocytes # (auto) 1.08 K/uL (0.11-0.59); Monocytes % (auto) 17.1 %; Neutrophils # (auto) 4.23 K/uL (1.40-6.50); Neutrophils % (auto) 66.9 %; Platelet Count 252 K/uL (130-400); RDW Coefficient of Variation 13.9 % (11.5-14.5); RDW Standard Deviation 47.9 fL (36.4-46.3); Red Blood Count 2.87 M/uL (4.20-5.40); White Blood Count 6.32 K/ul (4.8-10.8)
[2024-07-12 08:54] LABS: Albumin Globulin Ratio 1.1 (0.9-2); Albumin Level 2.7 gm/dl (3.4-5.0); BUN Creatinine Ratio 15.7 (10-20); Bilirubin,Total 0.6 mg/dl (0.2-1.0); Calcium 7.8 mg/dl (8.6-10.3); Globulin 2.4 gm/dl (2.5-4.0); Magnesium 2.1 mg/dl (1.7-2.4); Potassium 2.9 mmol/L (3.5-5.1); Total Protein 5.1 gm/dl (6.0-8.3)
[2024-07-12] MEDS: MAGNESIUM CHLORIDE W/CALCIUM 64MG DELAYED REL TAB PO SCH (10:03)
--- NOTE | 2024-07-12 10:13 | Surgery Progress Note ---
Date of Service July 12, 2024 Assessment & Plan (1) S/P exploratory laparotomy: Plan: Doing much better. Continue local wound care and antibiotics. Will reach out to case management regarding potential home nurses for wound care Will advance to low residue diet. Potential discharge tomorrow if she continues to improve (2) Wound infection: Admission and Anticipated Discharge Date Admission Date: July 04, 2024 Subjective Patient seen. Feeling much better than yesterday. Much less incisional/abdominal tenderness. She is tolerating full liquid diet and having bowel movements Physical Exam Physical Exam: Alert no acute distress The incision looks much better. Much less erythema. Minimal drainage currently Results & Data Vital Signs (Past 12 Hours) Vital Signs Temp Pulse Resp BP Pulse Ox O2 Del Method 07/12/24 07:25 36.6 C 90 16 101/66 97 Room Air PG Care Time/CCT Total # of Minutes Spent Total Time Spent with Patient: Total time spent is greater than 50% in coordination of care (as documented) at patient's floor/unit and/or counseling patient: Coding Level of Care Code 51104 Post Operative Follow-Up Diagnoses S/P exploratory laparotomy Z98.890 Wound infection T14.8XXA; L08.9
[2024-07-12] MEDS: CEFEPIME 2000MG 2,000 MG/20 ML SYR IV SCH (16:51)
--- NOTE | 2024-07-12 17:39 | Hospitalist Progress Note ---
Date of Service July 12, 2024 Assessment & Plan (1) SBO (small bowel obstruction): Plan Ms. Ramos is a 69-year-old female with past medical history significant for hypertension, hyperlipidemia, chronic hyponatremia, SIADH per records, history of seizures per records, pituitary tumor per records anxiety/mood disorder, history of microscopic colitis who presented with abdominal pain and nausea and found to have another small bowel obstruction. and is now s/p 07/06 small bowel resection. Patient with history of complicated surgical intervention and sent to [facility] 06/24 for SBO, but ultimately with return of bowel function. Patient admitted on 07/04 and underwent resection 07/06. Postoperative course with surgical site infection and multiple electrolyte abdnormalities. Patient otherwise possibly ready for discharge in 1-2 days with planned PO antibiotics. #Small bowel obstruction s/p resection 07/06 #Surgical site infection Second recent episode Repeat CT abd/pelvis noting suggestion of "mild to moderate small bowel obstruc tion" vs, "paralytic/brit ileus rather than mechanical obstruction." General Surgery consulted, appreciate recs. -Taken to the OR on 07/06/2024 s/p "exploratory laparotomy, lysis of adhesions, small bowel resection x 2" by general surgery on 07/06/2024. patient with NG tube postop. NG tube removed on 07/10 -low fiber diet today -Aggressive replacement of electrolytes -On zosyn for surgical site infection #Hypokalemia #Hypophosphatemia #Hypocalcemia #Hypomagnesemia replete as needed #Anxiety/mood disorder On buspirone 10mg TID and Ativan as needed On Wellbutrin for MDD #Ascites Mild ascites on CAT scan Needs follow-up as outpt #Chronic hyponatremia Sodium 130 on admission Known History of this Improving #Hypertension On lisinopril and amlodipine IV hydralazine as needed Continue to monitor #Hyperlipidemia On statin, continue #History of microscopic colitis Follows with GI Diet: advancing diet as tolerated DVT prophylaxis: SCDs and heparin subcu Dispo: Home once medically stable Admission and Anticipated Discharge Date Admission Date: July 04, 2024 Subjective NAEO Reports feeling much improved overall. Moving more and with bowel movements Excited for increased diet this afternoon Physical Exam Constitutional: WD/WN, vitals as above Respiratory: normal respiratory effort, lungs clear to auscultation Cardiovascular: RRR, no murmur, no edema Gastrointestinal (Abdomen): well approximated incision, iodoform guaze visulaized in inferior incision Results & Data Results & Data Vital Signs (Past 12 Hours) Vital Signs Temp Pulse Resp BP Pulse Ox O2 Del Method 07/12/24 15:34 36.6 C 97 H 16 115/62 97 Room Air 07/12/24 07:25 36.6 C 90 16 101/66 97 Room Air Laboratory Results Short CBC 07/12/24 Range/Units 07:55 WBC 6.32 (4.8-10.8) K/ul Hgb 9.3 L (12.0-16.0) g/dl Hct 27.0 L (37.0-47.0) % Plt Count 252 (130-400) K/uL BMP 07/12/24 07:55 Sodium 133 L Potassium 2.9 L D Chloride 96 L Carbon Dioxide 31 BUN 8 Creatinine 0.51 L Glucose 107 H Calcium 7.8 L Liver Function 07/12/24 Range/Units 07:55 Total Bilirubin 0.6 (0.2-1.0) mg/dl AST 32 (13-39) U/L ALT 34 (7-52) U/L Alkaline Phosphatase 118 H (34-104) U/L Albumin 2.7 L (3.4-5.0) gm/dl Medications Administered Home Medications Medication Instructions Recorded Confirmed Last Taken Bifidobacterium infantis 10.5 mg 10 mg PO DAILY 07/04/24 07/04/24 Unknown (10 million cell) chewable tablet (Align) amlodipine 5 mg tablet 5 mg PO DAILY 07/04/24 07/04/24 Unknown atorvastatin 20 mg tablet 20 mg PO DAILY 07/04/24 07/04/24 Unknown azelastine 137 mcg (0.1 %) nasal 1 spray intranasal BID PRN Allergy 07/04/24 07/04/24 Unknown spray Symptoms bupropion HCl 150 mg tablet,12 hr 150 mg PO QAM 07/04/24 07/04/24 Unknown sustained-release buspirone 10 mg tablet 10 mg PO TID 07/04/24 07/04/24 Unknown cholecalciferol (vitamin D3) 25 25 mcg PO DAILY 07/04/24 07/04/24 Unknown mcg (1,000 unit) tablet (Vitamin D3) coenzyme Q10 100 mg capsule 200 mg PO DAILY 07/04/24 07/04/24 Unknown (CoQ-10) cyanocobalamin (vitamin B-12) 1,000 mcg PO DAILY 07/04/24 07/04/24 Unknown 1,000 mcg tablet cyclosporine 0.05 % eye drops in a 1 drp ophthalmic (eye) Q12H 07/04/24 07/04/24 Unknown dropperette (Restasis) glucosamine sulf dipot 1 cap PO DAILY 07/04/24 07/04/24 Unknown chlr,msm,chond 550 mg-C 30 mg-sandra 1 mg capsule (Glucosamine Chondroitin) lisinopril 40 mg tablet 40 mg PO DAILY 07/04/24 07/04/24 Unknown lorazepam 0.5 mg tablet (Ativan) 0.5 mg PO HS PRN Anxiety 07/04/24 07/04/24 Unknown omega 7-uyv-xiu-fish oil 1,000 mg 1 cap PO DAILY 07/04/24 07/04/24 Unknown (120 mg-180 mg) capsule (Fish Oil) polyethylene glycol 3350 17 gram 17 g PO DAILY 07/04/24 07/04/24 Unknown oral powder packet (Miralax) vitamins A,C,V-bitn-cnkwrs 2,148 1 tab PO BID 07/04/24 07/04/24 Unknown mcg-113 mg-45 mg-17.4 mg tablet (PreserVision AREDS) Active Medications Generic Name Dose Route Start Last Admin Trade Name Freq PRN Reason Stop Dose Admin Acetaminophen 1,000 mg 07/08/24 16:39 07/12/24 17:40 Acetaminophen 500 Mg Tab PO 08/07/24 16:38 1,000 mg Q8H PRN Administration Mild Pain (Scale 1, 2, 3) Amlodipine Besylate 5 mg 07/04/24 09:00 07/12/24 09:24 Amlodipine Besylate 5 Mg Tab PO 08/03/24 08:59 5 mg DAILY ANNEL Administration Atorvastatin Calcium 20 mg 07/04/24 09:00 07/12/24 09:24 Atorvastatin 20 Mg Tab PO 08/03/24 08:59 20 mg DAILY ANNEL Administration Bupropion HCl 150 mg 07/04/24 09:00 07/12/24 09:23 Bupropion Sr 150 Mg Tabcr PO 08/03/24 08:59 150 mg QAM ANNEL Administration Buspirone HCl 10 mg 07/04/24 09:00 07/12/24 13:55 Buspirone 5 Mg Tab PO 08/03/24 08:59 10 mg TID ANNEL Administration Heparin Sodium (Porcine) 5,000 units 07/04/24 09:00 07/12/24 09:25 Heparin Sod 5,000 Unit/0.5 Ml Vial SQ 08/03/24 08:59 Not Given Q12 ANNEL Hydromorphone HCl 0.25 mg 07/04/24 08:46 07/10/24 16:05 Hydromorphone Inj 0.5 Mg/0.5 Ml Syr IV 07/18/24 08:45 0.25 mg Q6H PRN Administration Moderate Pain (Scale 4, 5, 6) Hydromorphone HCl 0.5 mg 07/04/24 08:46 07/10/24 10:39 Hydromorphone Inj 0.5 Mg/0.5 Ml Syr IV 07/18/24 08:45 0.5 mg Q6H PRN Administration Severe Pain (Scale 7, 8, 9,10) Promethazine HCl 6.25 mg in 50.25 mls @ 201 mls/hr 07/05/24 19:18 07/11/24 23:27 Phenergan IV 08/04/24 19:17 Infused Q6H PRN Infusion Nausea And Vomiting Cefepime HCl 2,000 mg in 20 mls @ 5 mls/min 07/12/24 16:00 07/12/24 16:51 Maxipime 2000mg IV 07/19/24 15:59 5 mls/min Q8H ANNEL Administration Lisinopril 40 mg 07/04/24 09:00 07/12/24 09:24 Lisinopril 40 Mg Tab PO 08/03/24 08:59 40 mg DAILY ANNEL Administration Lorazepam 0.5 mg 07/04/24 08:46 07/11/24 21:21 Lorazepam 0.5 Mg Tab PO 08/03/24 08:45 0.5 mg HS PRN Administration Anxiety Magnesium Chloride 64 mg 07/12/24 09:00 07/12/24 10:03 Magnesium Chloride W/Calcium 64mg Delayed Rel Tab PO 08/11/24 08:59 64 mg BID ANNEL Administration Ondansetron HCl 4 mg 07/04/24 08:46 07/12/24 11:32 Ondansetron Inj 2 Mg/Ml 2 Ml Vial IV 08/03/24 08:45 4 mg Q6H PRN Administration Nausea Tramadol HCl 25 mg 07/08/24 21:02 07/12/24 15:28 Tramadol Hcl 50 Mg Tablet PO 08/07/24 21:01 25 mg TID PRN Administration Pain
[2024-07-12] MEDS: POTASSIUM CHLORIDE / WTR 10 MEQ/100 ML PLCT IV SCH (18:01)
[2024-07-13 07:58] VITALS: BP 135/79; PULSE 93; TEMP 98.4; O2SAT 95
[2024-07-13 08:25] LABS: Basophils # (auto) 0.04 K/uL (0.00-0.20); Basophils % (auto) 0.5 %; Eosinophils # (auto) 0.11 K/uL (0.00-0.50); Eosinophils % (auto) 1.5 %; Hematocrit (blood only) 27.8 % (37.0-47.0); Hemoglobin 9.6 g/dl (12.0-16.0); Immature Granulocytes # (auto) 0.08 K/uL (0.01-0.20); Immature Granulocytes % (auto) 1.1 %; Lymphocytes # (auto) 0.98 K/uL (1.20-3.40); Lymphocytes % (auto) 13.2 %; Mean Corpuscular Hemoglobin 32.1 pg (25.0-34.0); Mean Corpuscular Hgb Conc 34.5 g/dL (32.0-36.0); Mean Platelet Volume 9.1 fL (9.4-12.4); Monocytes # (auto) 1.12 K/uL (0.11-0.59); Monocytes % (auto) 15.1 %; Neutrophils # (auto) 5.11 K/uL (1.40-6.50); Neutrophils % (auto) 68.6 %; Platelet Count 292 K/uL (130-400); RDW Coefficient of Variation 13.8 % (11.5-14.5); RDW Standard Deviation 47.8 fL (36.4-46.3); Red Blood Count 2.99 M/uL (4.20-5.40); White Blood Count 7.44 K/ul (4.8-10.8)
[2024-07-13 08:42] LABS: BUN Creatinine Ratio 14.6 (10-20); Calcium 7.7 mg/dl (8.6-10.3); Creatinine Clr Calc Pharmacy 91.4 ml/min; Potassium 3.1 mmol/L (3.5-5.1)
--- NOTE | 2024-07-13 09:53 | Surgery Progress Note ---
Date of Service July 13, 2024 Assessment & Plan (1) S/P exploratory laparotomy: Plan: Doing much better WBC wnl , VSS PT set up with HH for local wound care Continue PO antibx on d/c stable for d/c today from surgical standpoint f/u o.p with surgeon next week as above. doing well. ok for d/c. f/u with Dr. Chavez in 1 week (2) Wound infection: Admission and Anticipated Discharge Date Admission Date: July 04, 2024 Subjective pt doing well no complaints Review of Systems Constitutional: no fever and no chills Respiratory: no dyspnea Cardiovascular: no chest pain Gastrointestinal: no nausea and no vomiting Musculoskeletal: no muscle weakness Psychiatric: no confusion Physical Exam Constitutional: cooperative and comfortable; no acute distress Respiratory: normal respiratory effort and able to speak in complete sentences; no respiratory distress Cardiovascular: Rate/Rhythm: + tachycardic (93) Gastrointestinal (Abdomen): Inspection/Auscultation: + abdominal surgical incision Psychiatric: Orientation: alert and oriented x 3 Apperance: appropriately groomed Results & Data Vital Signs (Past 12 Hours) Vital Signs Temp Pulse Resp BP Pulse Ox O2 Del Method 07/13/24 07:56 98.4 F 93 H 16 135/79 95 Room Air Results CBC w Diff Results: RBC 2.99 M/uL (4.20-5.40) L 07/13/24 WBC 7.44 K/ul (4.8-10.8) 07/13/24 Hgb 9.6 g/dl (12.0-16.0) L 07/13/24 Hct 27.8 % (37.0-47.0) L 07/13/24 MCV 93.0 fL (80.0-100.0) 07/13/24 MCH 32.1 pg (25.0-34.0) 07/13/24 MCHC 34.5 g/dL (32.0-36.0) 07/13/24 RDW Standard Deviation 47.8 fL (36.4-46.3) H 07/13/24 RDW Coefficient of Variation 13.8 % (11.5-14.5) 07/13/24 Plt Count 292 K/uL (130-400) 07/13/24 MPV 9.1 fL (9.4-12.4) L 07/13/24 Neutrophils (%) (Auto) 68.6 % 07/13/24 Lymphocytes (%) (Auto) 13.2 % 07/13/24 Monocytes # (Auto) 1.12 K/uL (0.11-0.59) H 07/13/24 Eosinophils # (Auto) 0.11 K/uL (0.00-0.50) 07/13/24 Immature Granulocyte % (Auto) 1.1 % 07/13/24 Neutrophils # (Auto) 5.11 K/uL (1.40-6.50) 07/13/24 Lymphocytes # (Auto) 0.98 K/uL (1.20-3.40) L 07/13/24 Monocytes # (Auto) 1.12 K/uL (0.11-0.59) H 07/13/24 Eosinophils # (Auto) 0.11 K/uL (0.00-0.50) 07/13/24 Basophils # (Auto) 0.04 K/uL (0.00-0.20) 07/13/24 Immature Granulocyte # (Auto) 0.08 K/uL (0.01-0.20) 4 PG Care Time/CCT Total # of Minutes Spent Total Time Spent with Patient: Total time spent is greater than 50% in coordination of care (as documented) at patient's floor/unit and/or counseling patient: Coding Level of Care Code 08794 Post Operative Follow-Up Diagnoses S/P exploratory laparotomy Z98.890 Wound infection T14.8XXA; L08.9
[2024-07-13] MEDS: POTASSIUM CHLORIDE CRTAB 20 MEQ TABCR PO STA (10:16)
--- NOTE | 2024-07-13 10:56 | Discharge Summary ---
Discharge Summary Date of Service July 13, 2024 Principal Dx & Hospital Course #1 = Principal Diagnosis (1) SBO (small bowel obstruction): Plan Ms. Ramos is a 69-year-old female with past medical history significant for hypertension, hyperlipidemia, chronic hyponatremia, SIADH per records, history of seizures per records, pituitary tumor per records anxiety/mood disorder, history of microscopic colitis who presented with abdominal pain and nausea and found to have another small bowel obstruction. and is now s/p 07/06 small bowel resection. Patient with history of complicated surgical intervention and sent to [facility] 06/24 for SBO, but ultimately with return of bowel function. Patient admitted on 07/04 and underwent resection 07/06. Postoperative course with surgical site infection and multiple electrolyte abnormalities. Wound culture with Klebsiella. Discharged with Ciprofloxacin 750mg BID for 12 more days (14 days total s/p initial abx initiation) Encouraged probiotic and low fiber diet. On day of discharge, patient eating well, ambulating, passing flatus and stool. She reports "Feeling great." Wound examined by ad writer and --minimal surrounding erythema, nugauze with drainage, however, vertical surgical incision appears to be healing well. Patient and reported feeling content with progress and denied any concerns at time of discharge. #Small bowel obstruction s/p resection 07/06 #Surgical site infection Second recent episode Repeat CT abd/pelvis noting suggestion of "mild to moderate small bowel obstruction" vs, "paralytic/brit ileus rather than mechanical obstruction." General Surgery consulted, appreciate recs. -Taken to the OR on 07/06/2024 s/p "exploratory laparotomy, lysis of adhesions, small bowel resection x 2" by general surgery on 07/06/2024. patient with NG tube postop. NG tube removed on 07/10 -low fiber diet today -Aggressive replacement of electrolytes -Surgical site cultures with klebsiella: ciprofloxacin 750mg bid #Hypokalemia #Hypophosphatemia #Hypocalcemia #Hypomagnesemia replete as needed 1 week course potassium 10meq with labs in 1 week #Anxiety/mood disorder On buspirone 10mg TID and Ativan as needed On Wellbutrin for MDD #Ascites Mild ascites on CAT scan Needs follow-up as outpt #Chronic hyponatremia Sodium 130 on admission Known History of this Improving #Hypertension On lisinopril and amlodipine IV hydralazine as needed Continue to monitor #Hyperlipidemia On statin, continue #History of microscopic colitis Follows with GI Notes For Next Care Provider -Labs in 1 week CBC, BMP, Mag, and Phos Medication Changes From Visit Ciprofloxacin 750mg BID 2/2 klebsiella on wound cultures Recommended probiotic Potassium 10meq for 7 days (labs planned) Slow mag daily (labs planned) Admission HPI Per Admitting Provider 69-year-old female with past medical history significant for hypertension, hyperlipidemia, chronic hyponatremia SIADH per records, history of seizures per records, pituitary tumor per records anxiety/mood disorder, history of microscopic colitis presents with abdominal pain and nausea and found to have small bowel obstruction. Patient was recently in the hospital for small bowel obstruction at the time NG tube was placed. Patient underwent Gastrografin small bowel follow-through for small bowel obstruction protocol. No contrast proceeded into the large bowel. Because of previous complicated surgical history family request transfer to higher level level of care and was transferred to [facility]. She was transferred to [place] on 06/24/2024. At [place] she had bowel movements and tolerated diet. And patient was discharged on 06/26/2024. Yesterday morning patient had normal bowel movement. In the evening again patient started feeling nauseous and severe abdominal pain. Because of significant severe pain abdominal pain brought her back to the hospital today. En route she vomited. With pain medications pain is somewhat improved. Currently denies any headache. No runny nose or sore throat. No cough. No chest pain or shortness of breath. Micturating okay. Hemodynamics are okay. As per 5 to 6 years ago patient had inguinal surgery. Few days after surgery patient developed abdominal pain which required multiple ER and hospital admissions without finding the cause of the symptoms as they wear coming and going. Finally after 24 days of surgery as patient was still having symptoms it was decided to take her back to the OR. It was found out that one of the sutures was abnormally placed on the intestine which was causing the trouble. And at the time she stayed in the hospital for 13 days. After that she did okay except for IBS symptoms until last admission with small bowel obstruction Past medical history. As mentioned above. Past surgical history. Cataract surgery bilateral complex. Colonoscopy. EGD. Injection of lumbosacral spine. Hand surgery. Shoulder surgery. Lumpectomy. Abdominal surgery. Admission Exam Per Admitting Provider General- Not in distress Head- atraumatic Eyes- PERRL. ENT- oropharynx clear Neck- supple, no JVD. Lungs- clear to auscultation no wheezing or crackles Heart- regular rate and rhythm; no murmur, no gallop. Abdomen- sluggish bowel sounds, soft, nontender, no distension Extremities- mild pretibial edema, no erythema seen. Neuro- alert, oriented PERRL, no facial palsy; no dysarthria; moves extremities. Discharge Exam Constitutional WD/WN, vitals as above Respiratory normal respiratory effort, lungs clear to auscultation Cardiovascular RRR, no murmur, no edema Skin vertical incision with minimal superficial erythema around inferior incision, much improved from prior examination Updated Medication List Medication Instructions Recorded Confirmed Type amlodipine 5 mg tablet 5 mg PO DAILY 07/04/24 07/04/24 History atorvastatin 20 mg tablet 20 mg PO DAILY 07/04/24 07/04/24 History azelastine 137 mcg (0.1 %) nasal 1 spray intranasal BID PRN Allergy 07/04/24 07/04/24 History spray Symptoms bupropion HCl 150 mg tablet,12 hr 150 mg PO QAM 07/04/24 07/04/24 History sustained-release buspirone 10 mg tablet 10 mg PO TID 07/04/24 07/04/24 History cholecalciferol (vitamin D3) 25 25 mcg PO DAILY 07/04/24 07/04/24 History mcg (1,000 unit) tablet (Vitamin D3) coenzyme Q10 100 mg capsule 200 mg PO DAILY 07/04/24 07/04/24 History (CoQ-10) cyanocobalamin (vitamin B-12) 1,000 mcg PO DAILY 07/04/24 07/04/24 History 1,000 mcg tablet cyclosporine 0.05 % eye drops in a 1 drp ophthalmic (eye) Q12H 07/04/24 07/04/24 History dropperette (Restasis) glucosamine sulf dipot 1 cap PO DAILY 07/04/24 07/04/24 History chlr,msm,chond 550 mg-C 30 mg-sandra 1 mg capsule (Glucosamine Chondroitin) lisinopril 40 mg tablet 40 mg PO DAILY 07/04/24 07/04/24 History lorazepam 0.5 mg tablet (Ativan) 0.5 mg PO HS PRN Anxiety 07/04/24 07/04/24 History omega 7-xzs-pdf-fish oil 1,000 mg 1 cap PO DAILY 07/04/24 07/04/24 History (120 mg-180 mg) capsule (Fish Oil) polyethylene glycol 3350 17 gram 17 g PO DAILY 07/04/24 07/04/24 History oral powder packet (Miralax) vitamins A,C,I-hqkx-sikofa 2,148 1 tab PO BID 07/04/24 07/04/24 History mcg-113 mg-45 mg-17.4 mg tablet (PreserVision AREDS) Bifidobacterium infantis 10.5 mg 10 mg (0.9524 x 10.5 mg (10 07/13/24 Rx (10 million cell) chewable tablet million cell)) PO DAILY #30 tabs (Align) ciprofloxacin HCl 750 mg tablet 750 mg PO Q12H 12 days #24 tabs 07/13/24 Rx magnesium chloride 71.5 mg 71.5 mg PO DAILY #30 tabs 07/13/24 Rx (magnesium chloride) tablet,delayed release (Slow-Mag) oxycodone 5 mg tablet 5 - 10 mg (1 - 2 x 5 mg) PO 07/13/24 Rx .[id number] PRN pain, for initial therapy, max 6 tabs per day #10 tabs potassium chloride 10 mEq oral 10 meq PO DAILY #7 ea 07/13/24 Rx packet Hospital Stay Data Consultations 07/04/24 03:51 ED Decision to Admit Stat 07/04/24 08:46 Consult General Surgery Routine Procedures Performed Operation Date: 07/06/24 12:00 Actual Procedures p Exploratory Laparotomy, Lysis of Adhesion, and Small Bowel Resection(Not Applicable) - Colton Chavez MD Diagnostic Imagining Performed 07/04/24 03:09 CT Abd and Pelvis [CT abd pelvis IV con only] Stat Pending Results Patient Have Any Pending Studies at Discharge: Yes Discharge Instructions Given to Patient (Per Discharging Provider) You were admitted for a small bowel obstruction and underwent 07/06 small bowel resection. You were noted to have infection at the bottom portion of your surgical site. You responded well to antibiotics. You will be sent home on oral antibiotics two times a day for 12 more days and it is recommended you start a probiotic as well. You have gabrielle that will need to come out at your follow up appointment. Please keep surgical area clean and dry. You will need to remove and change your abdominal wound packing daily (with dry 1/4" nu gauze packing) and then cover with gauze and tape . Change your dressing daily. Please continue a low fiber diet. You will continue a short course of potassium supplement daily and magnesium supplementation. An appointment with your PCP will be coordinated for labs in 1 week: CBC for blood level and BMP, Mag, Phos which will check your electrolyte levels. Total Time Total Time Spent Total Time Spent (In Minutes): 45
[2024-07-13] MEDS: CIPROFLOXACIN 250 MG TAB PO SCH (11:39)
--- NOTE | 2024-07-13 15:25 | Electrocardiogram Report ---
Test Reason : Blood Pressure : */* mmHG Vent. Rate : 83 BPM Atrial Rate : 83 BPM P-R Int : 132 ms QRS Dur : 84 ms QT Int : 376 ms P-R-T Axes : -3 19 51 degrees QTcB Int : 441 ms Normal sinus rhythm Low voltage QRS Borderline ECG When compared with ECG of 04-Jul-2024 02:53, No significant change was found Confirmed by Orlando Alicea ([id number]) on 07/13/2024 3:25:15 PM Referred By: REFERRED SELF Confirmed By: Orlando Alicea
--- NOTE | 2024-07-19 08:59 | Coding Query ---
POSTOPERATIVE WOUND To promote full compliance with coding requirements relating to patient care, physician participation is requested in all cases of director of scout work uncertainty. Please assist us with the question(s) below: Please place an "X" within the parenthesis (x). If other, please specify. "Postoperative surgical infection at the bottom portion of surgical site is documented on the Interval Summary. Please provide further clarification of the surgical site infection ( x) Superficial incisional surgical site ( ) Deep incisional surgical site ( ) Other (please specify) Thank you Kimmy HINES
== END 2024-07-13 13:04 | disposition home health service (06) | DRG 330 ==
LOC: ED 02:23 → SUATTDRO 05:40 → EDINP 05:40 → 3N 08:01 → 3W 07-06 13:21

== ENCOUNTER 2024-07-17 02:17 | Observation (INO) ==
--- NOTE | 2024-07-17 02:33 | Emergency Department Note ---
Impression & Plan Abdominal pain, Postoperative ileus, Anemia, Acute hyponatremia ED Provider Note NAME: ALEJANDRO OLMSTEAD AGE: 69 SEX: F : 1955 ARRIVES VIA: Walk-In INFORMANT: Patient ED PROVIDER(S): Torsten Cedeño DO CHIEF COMPLAINT: Abdominal pain HPI: Patient is a 69-year-old female status post small bowel obstruction secondary to adhesions with resection with surgery emergently performed on . She presents to the ER today for right lower quadrant abdominal pain. Started after she sneezed. Denies any headache or change in vision. No chest pain or shortness of breath. She notes that sharp and stabbing in nature. No dysuria, urgency, or frequency. No other exacerbating or remitting factors. She notes the pain has been unremitting since then. ADDITIONAL HISTORY OBTAINED: Per HPI Chronic Medical/Social Conditions Affecting Care: Per HPI PAST MEDICAL HISTORY:See Below PAST SURGICAL HISTORY:See Below FAMILY HISTORY:See Below SOCIAL HISTORY:See Below HOME MEDICATIONS:See Below ALLERGIES:See Below VITALS:See Below PHYSICAL EXAMINATION: GENERAL: Sitting up in bed, alert, well appearing, well nourished, no distress, non-toxic EYE EXAM: normal conjunctiva. OROPHARYNX: mucous membranes are moist LUNGS: Clear to auscultation. Normal chest wall mechanics HEART: no murmurs, S1 normal and S2 normal ABDOMEN: abdomen soft, tenderness in the right lower quadrant, midline incision with dressing in place no drainage or discharge, normo-active bowel sounds, no masses, no rebound or guarding. UPPER EXTREMITIES: upper extremities are grossly normal. LOWER EXTREMITIES: No pitting edema. NEURO EXAM: Normal sensorium, cranial nerves II-XII grossly intact, normal speech, no gross weakness of arms, no gross weakness of legs. MEDICAL DECISION MAKING: Patient is a 69-year-old female status post abdominal surgery on who presents ER for right lower quadrant abdominal pain. IV was established and blood work was obtained. Labs show no significant leukocytosis. Mild anemia at 10.8 which fairly consistent with previous. BMP with mild hyponatremia 129. LFTs bilirubin was unremarkable. Lipase was normal. UA was negative. CT abdomen pelvis showed no obvious obstruction but suggested an ileus. Patient declined pain medications. She was given IV fluids. Consulted general surgery patient was seen and they recommended admission. Consults/Care Managements Discussions: Per MDM Triage Nursing notes reviewed. Limited review of prior medical records performed Vital Signs: reviewed and remarkable for no significant abnormalities Differential diagnosis: Differential diagnoses includes but is not limited to gastritis, peptic ulcer disease, GERD, gallbladder disease, pancreatitis, small bowel obstruction, appendicitis, diverticulitis, hernia, urinary tract infection, torsion, perforation, trauma, infectious. ER treatment provided: See below Diagnostics interpreted by me include EKG and cardiac monitoring as listed below: -Cardiac Monitoring: An order was placed for continuous cardiac monitoring. The monitor shows a rate of 80 with sinus rhythm. -ECG: none -Laboratory studies:Interpreted by me as stated above in MDM and shown below. Imaging studies: Xrays: As interpreted by me:none CTs show: CT abdomen pelvis per my preliminary interpretation showed a fair amount of stranding and fluid and free air in the lower abdomen CT of the pelvis per radiology suggested an ileus Procedures:none Critical Care: None Past Med/Surg History Problem List (Updated 07/17/24 @ 04:21 by Torsten Cedeño DO) Acute hyponatremia (Acute) Anemia (Acute) Abdominal pain (Acute) Wound infection S/P exploratory laparotomy (02/25/19) Exploratory laparotomy, lysis of adhesions, excision of suture, closure of enterotomy - Ke Phan MD 02/25/19 Acute abdominal pain (Acute) SBO (small bowel obstruction) (Acute) Metabolic acidosis, increased anion gap Small bowel obstruction due to adhesions Chronic hyponatremia Acute hyponatremia (Acute) Nausea & vomiting (Acute) Abdominal pain (Acute) SBO (small bowel obstruction) (Acute) Small bowel obstruction Encounter for pre-operative examination HTN (hypertension) Postoperative ileus (Acute) Neurogenic claudication due to lumbar spinal stenosis Anxiety Hyponatremia History of seizure S/P spinal surgery HLD (hyperlipidemia) Medical History Arthritis Macular degeneration Hyperlipidemia Anxiety and depression Seizure Aug 30, 2020 > [facility] > felt caused by low sodium and taking Wellbutrin > saw neurology from [facility] and was cleared per pt History of intestinal obstruction 2/2 tethered suture from umbilical hernia repair. Spondylisthesis Seasonal allergies HTN (hypertension) Spinal stenosis Surgical History Fusion of spine lumbar History of cataract surgery rt/left [place] teeth extracted History of colonoscopy S/P exploratory laparotomy (02/25/19) Exploratory laparotomy, lysis of adhesions, excision of suture, closure of enterotomy - Ke Phan MD 02/25/19 History of shoulder surgery LEFT ROTATOR CUFF History of hand surgery right/left History of lumpectomy breast lumpectomy x 3 (benign) Status post inguinal hernia repair H/O hernia repair Complicated by tethered suture causing bowel obstruction-OK NOW Family History Other No family history of adverse response to anesthesia Social History Smoking Status: Never smoker Second Hand Exposure: No; Do You Dip or Chew Tobacco: No; Hx Alcohol Use: Yes Alcohol type: hard liquor Alcohol type Comment: socially Alcohol Intake Frequency: 2-4 x/Month Hx Substance Use: No Preferred Language: Tajik Communication Ability: Effective Slip Presser Required: No Beliefs That Will Affect Care: None marital status: Current Living Situation: Spouse Feels Safe at Home: Yes Assistive Devices: None Allergies Allergies Allergy/AdvReac Type Severity Reaction Status Date / Time bupropion [From Wellbutrin] AdvReac Severe low Verified 01/26/23 07:50 sodium/requires monitoring while taking hydrochlorothiazide AdvReac Mild SEVERE Verified 01/26/23 07:49 HEADACHES , DIZZINESS Home Meds Home Medications Medication Instructions Recorded Confirmed amlodipine 5 mg tablet 5 mg PO DAILY 07/04/24 07/04/24 atorvastatin 20 mg tablet 20 mg PO DAILY 07/04/24 07/04/24 azelastine 137 mcg (0.1 %) nasal 1 spray intranasal BID PRN Allergy 07/04/24 07/04/24 spray Symptoms bupropion HCl 150 mg tablet,12 hr 150 mg PO QAM 07/04/24 07/04/24 sustained-release buspirone 10 mg tablet 10 mg PO TID 07/04/24 07/04/24 cholecalciferol (vitamin D3) 25 25 mcg PO DAILY 07/04/24 07/04/24 mcg (1,000 unit) tablet (Vitamin D3) coenzyme Q10 100 mg capsule 200 mg PO DAILY 07/04/24 07/04/24 (CoQ-10) cyanocobalamin (vitamin B-12) 1,000 mcg PO DAILY 07/04/24 07/04/24 1,000 mcg tablet cyclosporine 0.05 % eye drops in a 1 drp ophthalmic (eye) Q12H 07/04/24 07/04/24 dropperette (Restasis) glucosamine sulf dipot 1 cap PO DAILY 07/04/24 07/04/24 chlr,msm,chond 550 mg-C 30 mg-sandra 1 mg capsule (Glucosamine Chondroitin) lisinopril 40 mg tablet 40 mg PO DAILY 07/04/24 07/04/24 lorazepam 0.5 mg tablet (Ativan) 0.5 mg PO HS PRN Anxiety 07/04/24 07/04/24 omega 3-olr-xxn-fish oil 1,000 mg 1 cap PO DAILY 07/04/24 07/04/24 (120 mg-180 mg) capsule (Fish Oil) polyethylene glycol 3350 17 gram 17 g PO DAILY 07/04/24 07/04/24 oral powder packet (Miralax) vitamins A,C,P-ymll-hciqyu 2,148 1 tab PO BID 07/04/24 07/04/24 mcg-113 mg-45 mg-17.4 mg tablet (PreserVision AREDS) Previous Rx's Medication Instructions Recorded Bifidobacterium infantis 10.5 mg 10 mg (0.9524 x 10.5 mg (10 07/13/24 (10 million cell) chewable tablet million cell)) PO DAILY #30 tabs (Align) ciprofloxacin HCl 750 mg tablet 750 mg PO Q12H 12 days #24 tabs 07/13/24 magnesium chloride 71.5 mg 71.5 mg PO DAILY #30 tabs 07/13/24 (magnesium chloride) tablet,delayed release (Slow-Mag) oxycodone 5 mg tablet 5 - 10 mg (1 - 2 x 5 mg) PO 07/13/24 .[id number] PRN pain, for initial therapy, max 6 tabs per day #10 tabs potassium chloride 10 mEq oral 10 meq PO DAILY #7 ea 07/13/24 packet Results & Data (ED) Vital Signs Vital Signs - 24 hr 07/17/24 02:19 07/17/24 02:38 07/17/24 02:54 Temperature 36.4 C L Temperature Source Temporal Artery Scan Pulse Rate 102 H 82 Respiratory Rate 18 Respiratory Effort / Characteristics Non-Labored Spontaneous Respiratory Depth Normal Blood Pressure 129/72 Blood Pressure Mean 91 Pulse Oximetry 100 98 Oxygen Delivery Method Room Air Room Air Sepsis Recent Fever Within 48 Hours No Sepsis New/Unexplained Change in Mental Status No Sepsis Action Taken by Nursing No Action Required 07/17/24 03:00 Temperature Temperature Source Pulse Rate 79 Respiratory Rate 20 Respiratory Effort / Characteristics Respiratory Depth Blood Pressure 131/80 Blood Pressure Mean 104 Pulse Oximetry 98 Oxygen Delivery Method Sepsis Recent Fever Within 48 Hours Sepsis New/Unexplained Change in Mental Status Sepsis Action Taken by Nursing Laboratory Data 07/17/24 02:24 07/17/24 02:24 Lab Results 07/17/24 07/17/24 07/17/24 Range/Units 02:24 02:39 03:40 WBC 7.82 (4.8-10.8) K/ul RBC 3.32 L (4.20-5.40) M/uL Hgb 10.8 L (12.0-16.0) g/dl POC Hgb 10.9 L (12.0-16.0) g/dl Hct 31.1 L (37.0-47.0) % POC Hct 32 L (37-47) % MCV 93.7 (80.0-100.0) fL MCH 32.5 (25.0-34.0) pg MCHC 34.7 (32.0-36.0) g/dL RDW Std Deviation 47.6 H (36.4-46.3) fL RDW Coeff of Bj 13.9 (11.5-14.5) % Plt Count 460 H (130-400) K/uL MPV 8.6 L (9.4-12.4) fL Immature Gran % (Auto) 1.7 % Neut % (Auto) 64.0 % Lymph % (Auto) 21.1 % [place] % (Auto) 9.5 % Eos % (Auto) 3.1 % Baso % (Auto) 0.6 % Neut # (Auto) 5.01 (1.40-6.50) K/uL Lymph # (Auto) 1.65 (1.20-3.40) K/uL [place] # (Auto) 0.74 H (0.11-0.59) K/uL Eos # (Auto) 0.24 (0.00-0.50) K/uL Baso # (Auto) 0.05 (0.00-0.20) K/uL Immature Gran # (Auto) 0.13 (0.01-0.20) K/uL POC Sodium 130 L (135-144) mmol/L Sodium 129 L (136-145) mmol/L POC Potassium 3.8 (3.3-5.0) mmol/L Potassium 3.8 (3.5-5.1) mmol/L POC Chloride 96 L (101-112) mmol/L Chloride 97 L (98-107) mmol/L Carbon Dioxide 25 (21-32) mmol/L POC Total CO2 23 L (24-31) mmol/L Anion Gap 7 (3-11) POC Anion Gap 16.0 (16-25) mmol/L POC BUN 9 (7-18) mg/dl BUN 11 (6-23) mg/dl Creatinine 0.59 L (0.6-1.2) mg/dl POC Creatinine 0.6 (0.6-1.3) mg/dl Est Cr Clr Drug Dosing 71.6 ml/min eGFR 96.89 BUN/Creatinine Ratio 18.6 (10-20) Glucose 115 H (70-99(Fasting)) mg/dl POC Glucose (other) 113 H (70-99) mg/dl Calcium 8.8 (8.6-10.3) mg/dl POC Ioniz Calcium Jeni 1.15 (1.12-1.32) mmol/l Total Bilirubin 0.5 (0.2-1.0) mg/dl AST 27 (13-39) U/L ALT 30 (7-52) U/L Alkaline Phosphatase 105 H (34-104) U/L Total Protein 6.4 (6.0-8.3) gm/dl Albumin 3.6 (3.4-5.0) gm/dl Globulin 2.8 (2.5-4.0) gm/dl Albumin/Globulin Ratio 1.3 (0.9-2) Lipase 78 (11-82) U/L Urine Color Yellow Urine Appearance Clear (Clear) Urine pH 7.5 (4.5-7.5) Ur Specific [place] 1.023 (1.000-1.030) Urine Protein Negative (Negative) Urine Glucose (UA) Negative (Negative) Urine Ketones Negative (Negative) Urine Blood Negative (Negative) Urine Nitrite Negative (Negative) Urine Bilirubin Negative (Negative) Urine Urobilinogen Negative (Negative) Ur Leukocyte Esterase Negative (Negative) Administered Medications Discontinued Medications Ioversol (Optiray 320 100ml) 90 ml IV ONCE ONE Stop: 07/17/24 02:47 Last Admin: 07/17/24 02:46 Dose: 90 ml Documented By: PAOLA Imaging Data Radiologist's Impression: Abdomen/Pelvis CT 07/17/24 02:23 EXAM: CT abd pelvis IV con only CLINICAL HISTORY: abd pain recent sbo w/ resection 90 cc opti 320 TECHNIQUE: Multiple contiguous axial images were obtained from the level of the diaphragm to the pubis symphysis. This study was acquired after the IV administration of iodinated contrast material, given the patient's indications for the examination. If IV contrast material had not been administered, the likelihood of detecting abnormalities relevant to the patient's condition would have been substantially decreased. Coronal and sagittal reformatted images were generated and reviewed to improve anatomic localization and optimize lesion detection. CT scan was performed according to ALARA (as low as reasonably achievable). COMPARISON: 07.04.2024. FINDINGS: The visualized lung bases are clear. Stable trace pericardial effusion. The liver is normal in size and attenuation. Tiny simple cyst measuring 5 mm in segment VIII of the right lobe of the liver. There is no intra or extrahepatic biliary duct noted. Hepatic vasculature is patent. The gallbladder is present The spleen, pancreas, and adrenal glands are grossly unremarkable. Kidneys are normal in size and attenuation.T here is no hydronephrosis or perinephric stranding. The ureters are normal in caliber. No adenopathy or fluid collections are seen. Few of the jejunal loops are prominent with a maximum diameter measuring 30 mm. No obvious transition point is noted.A few terminal ileal loops are also prominent with a maximum diameter measuring 23 mm. Postoperative changes are noted in terminal ileum. The appendix is not visualized in the right lower quadrant. No evidence of acute inflammation in the right lower quadrant. The aorta is normal in caliber. The urinary bladder is normal in contour. The pelvic viscera are grossly unremarkable No aggressive appearing osseous lesions are identified. Posterior decompression and stabilization at L4-L5 level. IMPRESSION: 1. Few prominent jejunal and terminal ileal loops - likely due to ileus/ less likely due to subacute obstruction. 2. Compared to previous CT there is a significant interval decrease in dilatation of small bowel loops. No ascites. Electronically signed by Ki Cain 07-17-2024 03:38 AM Discharge Plan Visit Data Chief Complaint: Abdominal Pain Stated Complaint: R ABD PAIN ED Provider: Torsten Cedeño Discharge Problem: Abdominal pain, Postoperative ileus, Anemia, Acute hyponatremia Forms Stand Alone Forms: My [facility] Prescriptions Prescriptions: No Action bupropion HCl 150 mg Tablet Sustained-Release 12 Hr 150 mg PO QAM atorvastatin 20 mg Tablet 20 mg PO DAILY lorazepam [Ativan] 0.5 mg Tablet 0.5 mg PO HS PRN (Reason: Anxiety) azelastine 137 mcg (0.1 %) [place],Non-Aerosol 1 spray INTRANASAL BID PRN (Reason: Allergy Symptoms) Rx Instructions: administer into each nostril Glucosamine Chondroitin 550-30-1 mg Capsule 1 cap PO DAILY cyanocobalamin (vitamin B-12) 1,000 mcg Tablet 1,000 mcg PO DAILY buspirone 10 mg Tablet 10 mg PO TID PreserVision AREDS 2,148 mcg-113 mg-45 mg-17.4mg Tablet 1 tab PO BID Rx Instructions: administer with AM and PM meals lisinopril 40 mg Tablet 40 mg PO DAILY amlodipine 5 mg tablet 5 mg PO DAILY polyethylene glycol 3350 [Miralax] 17 gram Powder In Packet 17 g PO DAILY coenzyme Q10 [CoQ-10] 100 mg Capsule 200 mg PO DAILY cyclosporine [Restasis] 0.05 % Dropperette 1 drp OPHTHALMIC (EYE) Q12H cholecalciferol (vitamin D3) [Vitamin D3] 25 mcg (1,000 unit) Tablet 25 mcg PO DAILY omega 3-rpe-huk-fish oil [Fish Oil] 1,000 (120-180) mg Capsule 1 cap PO DAILY oxycodone 5 mg tablet 5 - 10 mg PO .q2z-b2r PRN (Reason: pain, for initial therapy, max 6 tabs per day) Qty: 10 0RF ciprofloxacin HCl 750 mg tablet 750 mg PO Q12H 12 Days Qty: 24 0RF potassium chloride 10 mEq packet 10 meq PO DAILY Qty: 7 0RF Align 10.5 mg (10 million cell) Tablet,Chewable 10 mg PO DAILY Qty: 30 0RF Slow-Mag 71.5 mg tablet,delayed release (DR/EC) 71.5 mg PO DAILY Qty: 30 0RF Referrals Referrals: Germán Felton M.D. [Primary Care Provider] - Discharge Problem: Abdominal pain Qualifiers: Abdominal location: unspecified location Qualified Code(s): R10.9 - Unspecified abdominal pain Anemia Qualifiers: Anemia type: unspecified type Qualified Code(s): D64.9 - Anemia, unspecified
[2024-07-17] MEDS: OPTIRAY 320 100ml IV ONE (02:46)
[2024-07-17 02:51] LABS: iSTAT Creatinine 0.6 mg/dl (0.6-1.3); iSTAT Hemoglobin 10.9 g/dl (12.0-16.0); iSTAT Ionized Calcium 1.15 mmol/l (1.12-1.32); iSTAT Potassium 3.8 mmol/L (3.3-5.0)
[2024-07-17 03:00] LABS: Basophils # (auto) 0.05 K/uL (0.00-0.20); Basophils % (auto) 0.6 %; Eosinophils # (auto) 0.24 K/uL (0.00-0.50); Eosinophils % (auto) 3.1 %; Hematocrit (blood only) 31.1 % (37.0-47.0); Hemoglobin 10.8 g/dl (12.0-16.0); Immature Granulocytes # (auto) 0.13 K/uL (0.01-0.20); Immature Granulocytes % (auto) 1.7 %; Lymphocytes # (auto) 1.65 K/uL (1.20-3.40); Lymphocytes % (auto) 21.1 %; Mean Corpuscular Hemoglobin 32.5 pg (25.0-34.0); Mean Corpuscular Hgb Conc 34.7 g/dL (32.0-36.0); Mean Corpuscular Volume 93.7 fL (80.0-100.0); Mean Platelet Volume 8.6 fL (9.4-12.4); Monocytes # (auto) 0.74 K/uL (0.11-0.59); Monocytes % (auto) 9.5 %; Neutrophils # (auto) 5.01 K/uL (1.40-6.50); Platelet Count 460 K/uL (130-400); RDW Coefficient of Variation 13.9 % (11.5-14.5); RDW Standard Deviation 47.6 fL (36.4-46.3); Red Blood Count 3.32 M/uL (4.20-5.40); White Blood Count 7.82 K/ul (4.8-10.8)
[2024-07-17 03:08] LABS: Albumin Globulin Ratio 1.3 (0.9-2); Albumin Level 3.6 gm/dl (3.4-5.0); BUN Creatinine Ratio 18.6 (10-20); Bilirubin,Total 0.5 mg/dl (0.2-1.0); Calcium 8.8 mg/dl (8.6-10.3); Creatinine Clr Calc Pharmacy 71.6 ml/min; Globulin 2.8 gm/dl (2.5-4.0); Potassium 3.8 mmol/L (3.5-5.1); Total Protein 6.4 gm/dl (6.0-8.3)
--- NOTE | 2024-07-17 03:39 | CT Scan Report ---
EXAM: CT abd pelvis IV con only CLINICAL HISTORY: abd pain recent sbo w/ resection 90 cc opti 320 TECHNIQUE: Multiple contiguous axial images were obtained from the level of the diaphragm to the pubis symphysis. This study was acquired after the IV administration of iodinated contrast material, given the patient's indications for the examination. If IV contrast material had not been administered, the likelihood of detecting abnormalities relevant to the patient's condition would have been substantially decreased. Coronal and sagittal reformatted images were generated and reviewed to improve anatomic localization and optimize lesion detection. CT scan was performed according to ALARA (as low as reasonably achievable). COMPARISON: 07.04.2024. FINDINGS: The visualized lung bases are clear. Stable trace pericardial effusion. The liver is normal in size and attenuation. Tiny simple cyst measuring 5 mm in segment VIII of the right lobe of the liver. There is no intra or extrahepatic biliary duct noted. Hepatic vasculature is patent. The gallbladder is present The spleen, pancreas, and adrenal glands are grossly unremarkable. Kidneys are normal in size and attenuation.T here is no hydronephrosis or perinephric stranding. The ureters are normal in caliber. No adenopathy or fluid collections are seen. Few of the jejunal loops are prominent with a maximum diameter measuring 30 mm. No obvious transition point is noted.A few terminal ileal loops are also prominent with a maximum diameter measuring 23 mm. Postoperative changes are noted in terminal ileum. The appendix is not visualized in the right lower quadrant. No evidence of acute inflammation in the right lower quadrant. The aorta is normal in caliber. The urinary bladder is normal in contour. The pelvic viscera are grossly unremarkable No aggressive appearing osseous lesions are identified. Posterior decompression and stabilization at L4-L5 level. IMPRESSION: 1. Few prominent jejunal and terminal ileal loops - likely due to ileus/ less likely due to subacute obstruction. 2. Compared to previous CT there is a significant interval decrease in dilatation of small bowel loops. No ascites. Electronically signed by Ki Cain 07-17-2024 03:38 AM
[2024-07-17 03:52] LABS: Appearance Urine Clear (Clear); Bilirubin Urine Negative (Negative); Blood Urine Negative (Negative); Color Urine Yellow; Glucose Urine UA Negative (Negative); Ketones Urine Negative (Negative); Leukocyte Esterase Urine Negative (Negative); Nitrite Urine Negative (Negative); Protein Urine Negative (Negative); Specific Gravity Urine 1.023 (1.000-1.030); Urobilinogen Urine Negative (Negative); pH Urine 7.5 (4.5-7.5)
[2024-07-17] MEDS: ACETAMINOPHEN 1,000 MG/100 ML VIAL IV STA (04:24)
[2024-07-17] MEDS: SODIUM CHLORIDE 0.9% 1,000 ML IV ONE (04:24)
--- NOTE | 2024-07-17 05:01 | History & Physical Report ---
Date of Service July 17, 2024 Assessment & Plan (1) Ileus: Plan: Patient is a 69-year-old female with recurrent SBO's who recently underwent exploratory laparotomy, lysis of adhesions, small bowel resection with Dr. Chavez on 07/06/2024. Postoperatively the patient did have a midline wound infection that is being packed daily but otherwise patient states she has been doing well post-operatively. The patient states her pain started immediately after sneezing and blowing her nose last evening and the pain is in her right lower quadrant that has been persistent since despite trying to take pain medication at home. She came to the ED for further evaluation and CT imaging was concerning for prominent jejunal and terminal ileal loops likely due to ileus without evidence of definitive obstruction. Patient was seen and evaluated in the ED this morning, she is nontoxic appearing, vitals stable, she denies any nausea or vomiting with the onset of pain. She is passing gas and her last BM was last evening after dinner. On exam her abdomen is soft, nondistended, she does have mild tenderness over the RLQ but otherwise no rebound or guarding. Midline incision with dressing/packing in place without overlying signs of infection. Due to recent surgery and ongoing pain, recommend keeping the patient for observation. Will keep npo for now, bowel rest, IV hydration, and pain control. No need for NGT placement at this time. Daily labs ordered. Consult wound nursing to perform daily dressing/packing changes. Hospitalist also consulted for management of chronic conditions. History of Present Illness Chief Complaint: abdominal pain Primary Care Provider: Germán Tita Felton Patient is a 69-year-old female who presented to the emergency department due to acute onset of abdominal pain last evening. Of note, the patient has had recurrent SBOs and ultimately underwent exploratory laparotomy, MAEVE, and small bowel resection with Dr. Chavez recently on 07/06/2024. The patient post-op did have a midline wound infection and a few gabrielle were removed and patient has been packing the incision once daily without any issues since. Upon arrival to the ED the patient is accompanied bedside with her and states that the pain started after she had sneezed and went to blow her nose. The pain is located in her right lower quadrant and descries it as sharp and stabbing in nature. She tried to take Tylenol at home and had laid down hoping the pain would subside, however due to it ongoing she came to the ED for further evaluation. Labs were unremarkable however CT imaging was concerning for possible ileus and surgical team was consulted. Patient was seen and evaluated early this morning, she is resting comfortably in bed, stable vitals and is nontoxic appearing. The patient states she is still experiencing right lower abdominal pain but has improved since arrival. States she has not had any issues with tolerating food and denies any onset of nausea or vomiting. She is passing gas and her last BM was last evening after dinner. Allergies Allergy/AdvReac Type Severity Reaction Status Date / Time bupropion [From Wellbutrin] AdvReac Severe low Verified 01/26/23 07:50 sodium/requires monitoring while taking hydrochlorothiazide AdvReac Mild SEVERE Verified 01/26/23 07:49 HEADACHES , DIZZINESS Home Medications Medication Instructions Recorded Confirmed Type amlodipine 5 mg tablet 5 mg PO DAILY 07/04/24 07/04/24 History atorvastatin 20 mg tablet 20 mg PO DAILY 07/04/24 07/04/24 History azelastine 137 mcg (0.1 %) nasal 1 spray intranasal BID PRN Allergy 07/04/24 07/04/24 History spray Symptoms bupropion HCl 150 mg tablet,12 hr 150 mg PO QAM 07/04/24 07/04/24 History sustained-release buspirone 10 mg tablet 10 mg PO TID 07/04/24 07/04/24 History cholecalciferol (vitamin D3) 25 25 mcg PO DAILY 07/04/24 07/04/24 History mcg (1,000 unit) tablet (Vitamin D3) coenzyme Q10 100 mg capsule 200 mg PO DAILY 07/04/24 07/04/24 History (CoQ-10) cyanocobalamin (vitamin B-12) 1,000 mcg PO DAILY 07/04/24 07/04/24 History 1,000 mcg tablet cyclosporine 0.05 % eye drops in a 1 drp ophthalmic (eye) Q12H 07/04/24 07/04/24 History dropperette (Restasis) glucosamine sulf dipot 1 cap PO DAILY 07/04/24 07/04/24 History chlr,msm,chond 550 mg-C 30 mg-sandra 1 mg capsule (Glucosamine Chondroitin) lisinopril 40 mg tablet 40 mg PO DAILY 07/04/24 07/04/24 History lorazepam 0.5 mg tablet (Ativan) 0.5 mg PO HS PRN Anxiety 07/04/24 07/04/24 History omega 8-orq-cwm-fish oil 1,000 mg 1 cap PO DAILY 07/04/24 07/04/24 History (120 mg-180 mg) capsule (Fish Oil) polyethylene glycol 3350 17 gram 17 g PO DAILY 07/04/24 07/04/24 History oral powder packet (Miralax) vitamins A,C,D-utfk-ifvfhy 2,148 1 tab PO BID 07/04/24 07/04/24 History mcg-113 mg-45 mg-17.4 mg tablet (PreserVision AREDS) Bifidobacterium infantis 10.5 mg 10 mg (0.9524 x 10.5 mg (10 07/13/24 Rx (10 million cell) chewable tablet million cell)) PO DAILY #30 tabs (Align) ciprofloxacin HCl 750 mg tablet 750 mg PO Q12H 12 days #24 tabs 07/13/24 Rx magnesium chloride 71.5 mg 71.5 mg PO DAILY #30 tabs 07/13/24 Rx (magnesium chloride) tablet,delayed release (Slow-Mag) oxycodone 5 mg tablet 5 - 10 mg (1 - 2 x 5 mg) PO 07/13/24 Rx .[id number] PRN pain, for initial therapy, max 6 tabs per day #10 tabs potassium chloride 10 mEq oral 10 meq PO DAILY #7 ea 07/13/24 Rx packet Past Med/Surg History Problem List (Updated 07/17/24 @ 04:58 by ROLO RodriguezC) Ileus Acute hyponatremia (Acute) Anemia (Acute) Abdominal pain (Acute) Wound infection S/P exploratory laparotomy (02/25/19) Exploratory laparotomy, lysis of adhesions, excision of suture, closure of enterotomy - Ke Phan MD 02/25/19 Acute abdominal pain (Acute) SBO (small bowel obstruction) (Acute) Metabolic acidosis, increased anion gap Small bowel obstruction due to adhesions Chronic hyponatremia Acute hyponatremia (Acute) Nausea & vomiting (Acute) Abdominal pain (Acute) SBO (small bowel obstruction) (Acute) Small bowel obstruction Encounter for pre-operative examination HTN (hypertension) Postoperative ileus (Acute) Neurogenic claudication due to lumbar spinal stenosis Anxiety Hyponatremia History of seizure S/P spinal surgery HLD (hyperlipidemia) Medical History Arthritis Macular degeneration Hyperlipidemia Anxiety and depression Seizure Aug 30, 2020 > [facility] > felt caused by low sodium and taking Wellbutrin > saw neurology from [place] and was cleared per pt History of intestinal obstruction 2/2 tethered suture from umbilical hernia repair. Spondylisthesis Seasonal allergies HTN (hypertension) Spinal stenosis Surgical History Fusion of spine lumbar History of cataract surgery rt/left [place] teeth extracted History of colonoscopy S/P exploratory laparotomy (02/25/19) Exploratory laparotomy, lysis of adhesions, excision of suture, closure of enterotomy - Ke Phan MD 02/25/19 History of shoulder surgery LEFT ROTATOR CUFF History of hand surgery right/left History of lumpectomy breast lumpectomy x 3 (benign) Status post inguinal hernia repair H/O hernia repair Complicated by tethered suture causing bowel obstruction-OK NOW Family History Other No family history of adverse response to anesthesia Social History Smoking Status: Never smoker Second Hand Exposure: No; Do You Dip or Chew Tobacco: No; Hx Alcohol Use: Yes Alcohol type: hard liquor Alcohol type Comment: socially Alcohol Intake Frequency: 2-4 x/Month Hx Substance Use: No Preferred Language: Puerto Rican Communication Ability: Effective Bellman Captain Required: No Beliefs That Will Affect Care: None marital status: Current Living Situation: Spouse Feels Safe at Home: Yes Assistive Devices: None Review of Systems Review of Systems: All systems reviewed & are unremarkable except as noted in HPI & below Gastrointestinal: + abdominal pain; no nausea, no vomiting and no constipation Physical Exam Constitutional: WD/WN, vitals as above Respiratory: normal respiratory effort, lungs clear to auscultation Gastrointestinal (Abdomen): Abdomen soft, nondistended, mild TTP in the RLQ with no rebound or guarding. +Midline incision with dressing in place and is clean,dry, and intact without overlying signs of infection present. Skin: no rashes, warm and dry Psychiatric: A+Ox3, euthymic affect Results & Data Results & Data Vital Signs (Past 12 Hours) Vital Signs Temp Pulse Resp BP Pulse Ox O2 Del Method 07/17/24 04:30 83 20 119/71 97 07/17/24 04:00 90 20 125/67 96 07/17/24 03:00 79 20 131/80 98 07/17/24 02:54 82 07/17/24 02:38 98 Room Air 07/17/24 02:19 36.4 C L 102 H 18 129/72 100 Room Air Diagnostic Findings EXAM: CT abd pelvis IV con only CLINICAL HISTORY: abd pain recent sbo w/ resection 90 cc opti 320 TECHNIQUE: Multiple contiguous axial images were obtained from the level of the diaphragm to the pubis symphysis. This study was acquired after the IV administration of iodinated contrast material, given the patient's indications for the examination. If IV contrast material had not been administered, the likelihood of detecting abnormalities relevant to the patient's condition would have been substantially decreased. Coronal and sagittal reformatted images were generated and reviewed to improve anatomic localization and optimize lesion detection. CT scan was performed according to ALARA (as low as reasonably achievable). COMPARISON: 07.04.2024. FINDINGS: The visualized lung bases are clear. Stable trace pericardial effusion. The liver is normal in size and attenuation. Tiny simple cyst measuring 5 mm in segment VIII of the right lobe of the liver. There is no intra or extrahepatic biliary duct noted. Hepatic vasculature is patent. The gallbladder is present The spleen, pancreas, and adrenal glands are grossly unremarkable. Kidneys are normal in size and attenuation.T here is no hydronephrosis or perinephric stranding. The ureters are normal in caliber. No adenopathy or fluid collections are seen. Few of the jejunal loops are prominent with a maximum diameter measuring 30 mm. No obvious transition point is noted.A few terminal ileal loops are also prominent with a maximum diameter measuring 23 mm. Postoperative changes are noted in terminal ileum. The appendix is not visualized in the right lower quadrant. No evidence of acute inflammation in the right lower quadrant. The aorta is normal in caliber. The urinary bladder is normal in contour. The pelvic viscera are grossly unremarkable No aggressive appearing osseous lesions are identified. Posterior decompression and stabilization at L4-L5 level. IMPRESSION: 1. Few prominent jejunal and terminal ileal loops - likely due to ileus/ less likely due to subacute obstruction. 2. Compared to previous CT there is a significant interval decrease in dilatation of small bowel loops. No ascites. Code Status & VTE Plan VTE Prophylaxis Plan VTE Prophylaxis will be ordered: Yes PG Care Time/CCT Total # of Minutes Spent Total Time Spent with Patient: Total time spent is greater than 50% in coordination of care (as documented) at patient's floor/unit and/or counseling patient: Coding [place] [address] INT INP/OBS CARE 1/40MIN Patient Type Established History Problem Focused Exam Problem Focused Medical Decision Making Straight Forward Diagnoses Ileus K56.7 Comment post-op
[2024-07-17] MEDS ORDERED: MoRPHine SULFATE 4 MG/ML 1 ML CARP\\VIAL IV PRN (08:04)
[2024-07-17] MEDS ORDERED: MoRPHine SULFATE 2 MG/ML CARP IV PRN (08:04)
[2024-07-17] MEDS ORDERED: ONDANSETRON INJ 2 MG/ML 2 ML VIAL IV PRN (08:04)
--- OUTSIDE RECORDS SUMMARY | 2024-07-17 08:30 | External Medical Summary | Summary of Care ---
Author Name Unknown Organization [facility] Address [address] [place] [address] Phone [phone] Care Team Providers Care Statistical Typist Name Role Phone Germán Felton MD Primary Care Provider + Reason for Visit * Reason Onset Date Comments Hospital Follow-Up 07/13/2024 Encounter Details Date Type Department Care Team (Late st Contact Info) Description 07/13/2024 Telephone [facility] Medicine [address] [facility] [place] [address] Colton Chavez MD [address] [place] [id number] Hospital Follow-Up Allergies Active Allergy Reactions Criticality Noted Date Comments Abaloparatide 06/06/2024 Other Reaction(s): heart palpitations Bupropion Medium 01/26/2023 Other Reaction(s): low sodium/requires monitoring while taking Hydrochlorothiazide Low 01/26/2023 Other Reaction(s): SEVERE HEADACHES , DIZZINESS Teriparatide 06/06/2024 Other Reaction(s): Palpitations documented as of this encounter (statuses as of 07/13/2024) Medications Ibuprofen 200 MG Oral Capsule Take [...] as of this encounter (statuses as of 07/13/2024) Active Problems Problem Noted Date Diagnosed Date Small bowel obstruction 06/24/2024 documented as of this encounter (statuses as of 07/13/2024) Social History Tobacco Use Types Packs/Day Years [...] as of this encounter Miscellaneous Notes * Telephone Encounter - Sara Mabry OSA - 07/13/2024 2:33 PM EST Scheduled on 07/19/24 * Telephone Encounter - Adina Lockwood LPN - 07/13/2024 12:17 PM EST Adair is discharging from [facility] to home today. Please contact patient to schedule discharge follow-up visit. documented in this encounter Plan of Treatment Upcoming Encounters Date Type Department Care Team (Late st Contact Info) Description 07/19/2024 10:30 AM EST Office Visit General Surgery, [facility] [address] [address] Colton Chavez MD [address] [place] [address] 09/11/2024 11:00 AM EST Office Visit Ophthalmology, [facility] [address] [place] [address] David Kinney DO [address] [place] [address] Health Maintenance Due Date Last Done Comments [...] Not on filedocumented as of this encounter Advance Directives * Full Code [...] Power of Attor nikolai? No Care Teams Statistical Typist Relationship Specialty Start Date End Date Germán Felton MD [address] [place] [address] PCP - General Family Medicine 01/12/19 documented as of this encounter
--- OUTSIDE RECORDS SUMMARY | 2024-07-17 08:30 | External Medical Summary | Summary of Care ---
Author Name Unknown Organization [facility] Address [address] [place] [address] Phone [phone] Care Team Providers Care Stove Carriage Operator Name Role Phone Germán Felton MD Primary Care Provider + Encounter Details Date Type Department Care Team (Latest Contact Info) Description 06/23/2024 8:10 PM EST - 06/23/2024 11:59 PM EST Hospital Encounter Radiology Film File [address] [place] [address] Discharge Disposition: Home - Self [...] 10:30 AM EST Office Visit General Surgery, [facility] [address] [address] Colton Chavez MD [address] [address] 09/11/2024 11:00 AM EST Office Visit Ophthalmology, [facility] [address] [address] David Kinney DO [address] [place] [address] Health Maintenance Due Date Last Done Comments [...] GENERAL RAD (IMAGES ONLY,NO REPORT) Routine 06/23/2024 8:10 PM EST documented in this encounter Results * RADIOLOGY EXAM - GENERAL RAD (IMAGES ONLY,NO REPORT) (06/23/2024 8:10 PM EST) 06/23/2024 8:08 PM EST Narrative Scheduling, Silent - 07/12/2024 3:36 PM EST This is an imaging study not interpreted or resulted by a [facility] or [employer] contracted radiologist. us Germán Felton MD RADIOLOGY (RAD GENERAL) Final Result documented in this encounter Advance [...] Power of Attor nikolai? No Care Teams Stove Carriage Operator Relationship Specialty Start Date End Date Germán Felton MD [address] [place] [address] PCP - General Family Medicine 01/12/19 documented as of this encounter
--- OUTSIDE RECORDS SUMMARY | 2024-07-17 08:31 | External Medical Summary | Summary of Care ---
Author Name Unknown Organization [facility] Address [address] [place] [address] Phone [phone] Care Team Providers Care Java Web Services Developer Name Role Phone Germán Felton MD Primary Care Provider + Reason for Visit * Reason Onset Date Comments Hospital Follow-Up 07/13/2024 Encounter Details Date Type Department Care Team (Late st Contact Info) Description 07/13/2024 Telephone [facility] Medicine [address] [facility] [place] [address] Colton Chavez MD [address] [place] [address] Hospital Follow-Up Allergies Active Allergy Reactions Criticality [...] encounter Miscellaneous Notes * Telephone Encounter - Adina Lockwood LPN - 07/13/2024 12:17 PM EST Adair is discharging from [facility] to home today. Please contact patient to schedule discharge follow-up visit. documented in this encounter Plan of Treatment Upcoming Encounters Date Type Department Care Team (Late st Contact Info) Description 07/19/2024 10:30 AM EST Office Visit General Surgery, [facility] [address] [address] Colton Chavez MD [address] [address] 09/11/2024 11:00 AM EST Office Visit Ophthalmology, [facility] [address] [address] David Kinney, [address] [place] [address] Health Maintenance Due Date Last Done Comments [...] Power of Attor nikolai? No Care Teams Java Web Services Developer Relationship Specialty Start Date End Date Germán Felton MD [address] [place] [address] PCP - General Family Medicine 01/12/19 documented as of this encounter
--- OUTSIDE RECORDS SUMMARY | 2024-07-17 08:31 | External Medical Summary | Summary of Care ---
Author Name Unknown Organization [facility] Address [address] [place] [address] Phone [phone] Care Team Providers Care Medical Records Coordinator Name Role Phone Germán Felton MD Primary Care Provider + Encounter Details Date Type Department Care Team (Late st Contact Info) Description 06/23/2024 Orders Only Unspecified Department Germán Felton MD [address] [place] [address] Allergies Active Allergy Reactions Criticality Noted Date Comments Abaloparatide 06/06/2024 Other Reaction(s): heart palpitations Bupropion Medium 01/26/2023 Other Reaction(s): low sodium/requires monitoring while taking Hydrochlorothiazide Low 01/26/2023 Other Reaction(s): SEVERE HEADACHES , DIZZINESS Teriparatide 06/06/2024 Other Reaction(s): Palpitations documented as of this encounter (statuses as of 07/12/2024) Medications Ibuprofen 200 MG Oral Capsule Take [...] as of this encounter (statuses as of 07/12/2024) Active Problems Problem Noted Date Diagnosed Date Small bowel obstruction 06/24/2024 documented as of this encounter (statuses as of 07/12/2024) Social History Tobacco Use Types Packs/Day Years [...] 09/11/2024 11:00 AM EST Office Visit Ophthalmology, [facility] [address] [place] [address] David Kinney, [address] [place] [address] Health Maintenance Due Date Last Done Comments [...] study not interpreted or resulted by a [facility] or [facility] contracted radiologist. Germán Felton MD RADIOLOGY (RAD GENERAL) Final Result documented in this encounter Advance Directives * Full Code (Latest Code Status on File) Date Activated Date Inactivated Comments 06/24/2024 8:00 PM 06/26/2024 10:31 PM This ord er reflects the patients wishes and were consensually agreed upon. Question Answer Comments Discussion of Advance Directives occurred with: Patient Does the patient have a Living Will? No Does the patient have Health Care Power of Attor nikolai? No Care Teams Medical Records Coordinator Relationship Specialty Start Date End Date Germán Felton MD [address] [place] [address] [address] PCP - General Family Medicine 01/12/19 documented as of this encounter
--- OUTSIDE RECORDS SUMMARY | 2024-07-17 08:31 | External Medical Summary | Summary of Care ---
Author Name Unknown Organization [facility] Address [address] [place] [address] Phone [phone] Care Team Providers Care Skiver Box Toe Name Role Phone Germán Felton MD Primary Care Provider + Encounter Details Date Type Department Care Team (Latest Contact Info) Description 06/24/2024 7:00 AM EST - 06/24/2024 7:10 PM [facility] Hospital Encounter Radiology Film File [address] [place] [address] Discharge Disposition: Home - Self [...] 10:30 AM EST Office Visit General Surgery, [facility] [address] [address] Colton Chavez MD [address] [address] 09/11/2024 11:00 AM EST Office Visit Ophthalmology, [facility] [address] [address] David Kinney DO [address] [place] [address] Health Maintenance Due Date Last Done Comments [...] - GENERAL RAD (IMAGES ONLY,NO REPORT) Routine 06/24/2024 7:00 AM EST documented in this encounter Results * RADIOLOGY EXAM - GENERAL RAD (IMAGES ONLY,NO REPORT) (06/24/2024 7:00 AM EST) 06/24/2024 6:58 AM EST Narrative Scheduling, Silent - 07/12/2024 3:38 PM EST This is an imaging study not interpreted or resulted by a [facility] or [employer] contracted radiologist. us Germán Felton MD RADIOLOGY [...] Power of Attor nikolai? No Care Teams Skiver Box Toe Relationship Specialty Start Date End Date Germán Feltno MD [address] [place] [address] [address] PCP - General Family Medicine 01/12/19 documented as of this encounter
--- OUTSIDE RECORDS SUMMARY | 2024-07-17 08:31 | External Medical Summary | Summary of Care ---
Author Name Unknown Organization [facility] Address [address] [address] Phone [phone] Care Team Providers Care Sulfuric Acid Plant Operator Name Role Phone Germán Felton MD Primary Care Provider + Encounter Details Date Type Department Care Team (Late st Contact Info) Description 06/24/2024 Orders Only Unspecified Department Germán Felton MD [...] 09/11/2024 11:00 AM EST Office Visit Ophthalmology, [facility] [address] [place] [address] David Kinney, [address] [place] [address] Health Maintenance Due Date Last Done Comments [...] interpreted or resulted by a [facility] contracted radiologist. Germán Felton MD RADIOLOGY (RAD [...] Power of Attor nikolai? No Care Teams Sulfuric Acid Plant Operator Relationship Specialty Start Date End Date Germán Felton MD [address] [place] [address] PCP - General Family Medicine 01/12/19 documented as of this encounter
[2024-07-17] MEDS: SODIUM CHLORIDE 0.9% 500 ML IV SCH (08:32)
[2024-07-17] MEDS ORDERED: LORazepam 0.5 MG TAB PO PRN (09:19)
[2024-07-17] MEDS ORDERED: LABETALOL HCL IV 5 MG/ML 20ML IV PRN (09:21)
[2024-07-17] MEDS ORDERED: ARTIFICIAL TEARS OPB PRN (09:23)
[2024-07-17] MEDS ORDERED: LORazepam 2 MG/1 ML VIAL IV PRN (09:24)
--- NOTE | 2024-07-17 09:35 | Hospitalist Consultation ---
Date of Consultation July 17, 2024 Assessment & Plan (1) Ileus: (2) Wound infection: (3) Chronic hyponatremia: (4) Anxiety: (5) HTN (hypertension): (6) HLD (hyperlipidemia): Plan #Ileus #Recent SBO s/p resection 07/06 #Surgical site infection - culture with Klebsiella during last admission Surgery managing ileus - pt currently on clear liquid diet Change to IV ciprofloxacin Wound care consult #Chronic hyponatremia - sodium was 132 at d/c on 07/13, today 129 Follow labs Received 1L of IVF in the ED, additional 1L running now at 100 ml/hr. #Anxiety/mood disorder - chronic, stable Continue outpatient buspirone 10 mg TID and prn lorazepam (IV prn ordered) Continue Wellbutrin for MDD #Hypertension Holding lisinopril and amlodipine for now IV labetalol prn SBP >170 Continue to monitor #Hyperlipidemia - Chronic Statin currently on hold Pt seen and reviewed with collaborating physician, Dr. Teran. Plan of care discussed and as outlined above. Thank you for this consultation. We will continue to follow this patient with you. A member of the [facility]ist team is available 01/03 via [employer]. Please don't hesitate to reach out with qu estions. Stella Smith PA-C Supervising Physician Co-Signing Physician Notes I have seen and discussed the case with the collaborating advanced practitioner. I agree with the above H&P. I have reviewed and confirmed the patients medical history, the findings on physical examination, and the patients diagnosis and treatment plan with Luis TURNER and agree with the information documented. Patient consulted for med management. Patient to continue abx and home meds. GENERAL APPEARANCE: AxOx4, generally well-appearing female, no acute distress. HEENT: NC, AT. MMM. EOMI, clear conjunctiva, oropharynx clear. NECK: Supple without lymphadenopathy. No stiffness or restricted ROM. HEART: Normal rate and regular rhythm, normal S1/S1, no m/r/g LUNGS: CTAB, moving air well. No crackles or wheezes are heard. ABDOMEN: Soft, nontender, nondistended with good bowel sounds heard. incision still with noted purulent drainage from wound BACK: No CVAT, no obvious deformity. EXTREMITIES: Without cyanosis, clubbing or edema. NEUROLOGICAL: Grossly nonfocal. Alert and oriented, moving all 4 extremities. CN not formally tested but appear grossly intact Skin: Warm and dry without any rash. : I spent a total of 15 minutes coordinating, documenting, and providing care for this patient excluding time spent in the performance of separately billed services. All of the aforementioned completed outside of collaborating with the assigned advanced practitioner for a full treatment plan. I have reviewed the advanced practitioner's documentation, and I agree with, and take responsibility for the plan of care History of Present Illness Reason for Consultation: Medical management Requesting Physician: Tejal Stock PA-C Attending Physician: Ayden Reyes DO History of Present Illness This is a 69 y/o female with HTN, hyperlipidemia, chronic hyponatremia, hx SIADH, hx seizures per records, hx pituitary tumor, anxiety/mood disorder, and other history as outlined below who presented to the ED overnight with recurrent abdominal pain. Pt was admitted to [facility] on 06/21 with worsening abdominal pain, N/V and diagnosed with bowel obstruction. Transferred to [facility] [place] on 06/24 due to history of complicated surgical intervention but ultimately had return of bowel function. Readmitted to [facility] on 07/04 and underwent resection on 07/06. Post- operative course complicated by surgical site infection and multiple electrolyte abnormalities. Wound culture grew Klebsiella so patient was discharge with ciprofloxacin 750 mg BID for a total of 14 days. Pt was discharged on 07/13/24. Since being home, pt reports that she was overall doing well with improving strength each day. She was tolerating oral intake and moving bowels without difficulty. No increased erythema or drainage from surgical site. Home nursing has been helping with dressing changes. Denies fevers, chills, sweats. Last night, she went to blow her nose and had a sharp pain in the RLQ. This pain was different than prior pain. She initially thought it may be due to a pulled mu scle but when it persisted, she became concerned about recurrent obstruction so came to the ED for evaluation. In the ED, work-up revealed likely ileus without current evidence of recurrent obstruction. She was referred for admission to the surgical service. We have been consulted to assist with managing patient's medical conditions. Allergies Allergy/AdvReac Type Severity Reaction Status Date / Time hydrochlorothiazide AdvReac Mild SEVERE Verified 01/26/23 07:49 HEADACHES , DIZZINESS Home Medications Medication Instructions Recorded Confirmed Type amlodipine 5 mg tablet 5 mg PO DAILY 07/04/24 07/17/24 History atorvastatin 20 mg tablet 20 mg PO DAILY 07/04/24 07/17/24 History azelastine 137 mcg (0.1 %) nasal 1 spray intranasal BID PRN Allergy 07/04/24 07/17/24 History spray Symptoms bupropion HCl 150 mg tablet,12 hr 150 mg PO QAM 07/04/24 07/17/24 History sustained-release buspirone 10 mg tablet 10 mg PO TID 07/04/24 07/17/24 History cholecalciferol (vitamin D3) 25 25 mcg PO DAILY 07/04/24 07/17/24 History mcg (1,000 unit) tablet (Vitamin D3) coenzyme Q10 100 mg capsule 200 mg PO DAILY 07/04/24 07/17/24 History (CoQ-10) cyanocobalamin (vitamin B-12) 1,000 mcg PO DAILY 07/04/24 07/17/24 History 1,000 mcg tablet cyclosporine 0.05 % eye drops in a 1 drp ophthalmic (eye) Q12H 07/04/24 07/17/24 History dropperette (Restasis) glucosamine sulf dipot 1 cap PO DAILY 07/04/24 07/17/24 History chlr,msm,chond 550 mg-C 30 mg-sandra 1 mg capsule (Glucosamine Chondroitin) lisinopril 40 mg tablet 40 mg PO DAILY 07/04/24 07/17/24 History lorazepam 0.5 mg tablet (Ativan) 0.5 mg PO HS PRN Anxiety 07/04/24 07/17/24 History omega 0-zxt-ghy-fish oil 1,000 mg 1 cap PO DAILY 07/04/24 07/17/24 History (120 mg-180 mg) capsule (Fish Oil) polyethylene glycol 3350 17 gram 17 g PO DAILY 07/04/24 07/17/24 History oral powder packet (Miralax) vitamins A,C,R-gmwo-sigbqu 2,148 1 tab PO BID 07/04/24 07/17/24 History mcg-113 mg-45 mg-17.4 mg tablet (PreserVision AREDS) Bifidobacterium infantis 10.5 mg 10 mg (0.9524 x 10.5 mg (10 07/13/24 07/17/24 Rx (10 million cell) chewable tablet million cell)) PO DAILY #30 tabs (Align) ciprofloxacin HCl 750 mg tablet 750 mg PO Q12H 12 days #24 tabs 07/13/24 07/17/24 Rx magnesium chloride 71.5 mg 71.5 mg PO DAILY #30 tabs 07/13/24 07/17/24 Rx (magnesium chloride) tablet,delayed release (Slow-Mag) oxycodone 5 mg tablet 5 - 10 mg (1 - 2 x 5 mg) PO 07/13/24 07/17/24 Rx .q4z-[id number] PRN pain, for initial therapy, max 6 tabs per day #10 tabs potassium chloride 10 mEq oral 10 meq PO DAILY #7 ea 07/13/24 07/17/24 Rx packet Patient History Medical History Arthritis Macular degeneration Hyperlipidemia Anxiety and depression Seizure Aug 30, 2020 > [facility] > felt caused by low sodium and taking Wellbutrin > saw neurology from [place] and was cleared per pt History of intestinal obstruction 2/2 tethered suture from umbilical hernia repair. Spondylisthesis Seasonal allergies HTN (hypertension) Spinal stenosis Surgical History Fusion of spine lumbar History of cataract surgery rt/left [place] teeth extracted History of colonoscopy S/P exploratory laparotomy (02/25/19) Exploratory laparotomy, lysis of adhesions, excision of suture, closure of enterotomy - Ke Phan MD 02/25/19 History of shoulder surgery LEFT ROTATOR CUFF History of hand surgery right/left History of lumpectomy breast lumpectomy x 3 (benign) Status post inguinal hernia repair H/O hernia repair Complicated by tethered suture causing bowel obstruction-OK NOW Family History Other No family history of adverse response to anesthesia Social History Smoking Status: Never smoker Second Hand Exposure: No; Do You Dip or Chew Tobacco: No; Hx Alcohol Use: No Hx Substance Use: No Preferred Language: Icelandic Communication Ability: Effective 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 Results & Data Results & Data Vital Signs (Past 12 Hours) Vital Signs Temp Pulse Pulse Resp BP BP Pulse Ox 07/17/24 08:27 96 H 16 126/66 98 07/17/24 08:12 81 07/17/24 06:28 85 07/17/24 06:09 79 18 120/65 97 07/17/24 05:30 79 17 122/67 98 07/17/24 05:00 83 19 123/69 97 07/17/24 04:30 83 20 119/71 97 07/17/24 04:00 90 20 125/67 96 07/17/24 03:00 79 20 131/80 98 07/17/24 02:54 82 07/17/24 02:38 98 07/17/24 02:19 36.4 C L 102 H 18 129/72 100 O2 Del Method 07/17/24 08:27 Room Air 07/17/24 08:12 07/17/24 06:28 07/17/24 06:09 07/17/24 05:30 07/17/24 05:00 07/17/24 04:30 07/17/24 04:00 07/17/24 03:00 07/17/24 02:54 07/17/24 02:38 Room Air 07/17/24 02:19 Room Air Laboratory Results Lab Results 07/17/24 07/17/24 07/17/24 Range/Units 02:24 02:39 03:40 WBC 7.82 (4.8-10.8) K/ul RBC 3.32 L (4.20-5.40) M/uL Hgb 10.8 L (12.0-16.0) g/dl POC Hgb 10.9 L (12.0-16.0) g/dl Hct 31.1 L (37.0-47.0) % POC Hct 32 L (37-47) % MCV 93.7 (80.0-100.0) fL MCH 32.5 (25.0-34.0) pg MCHC 34.7 (32.0-36.0) g/dL RDW Std Deviation 47.6 H (36.4-46.3) fL RDW Coeff of Bj 13.9 (11.5-14.5) % Plt Count 460 H (130-400) K/uL MPV 8.6 L (9.4-12.4) fL Immature Gran % (Auto) 1.7 % Neut % (Auto) 64.0 % Lymph % (Auto) 21.1 % Carbon % (Auto) 9.5 % Eos % (Auto) 3.1 % Baso % (Auto) 0.6 % Neut # (Auto) 5.01 (1.40-6.50) K/uL Lymph # (Auto) 1.65 (1.20-3.40) K/uL Carbon # (Auto) 0.74 H (0.11-0.59) K/uL Eos # (Auto) 0.24 (0.00-0.50) K/uL Baso # (Auto) 0.05 (0.00-0.20) K/uL Immature Gran # (Auto) 0.13 (0.01-0.20) K/uL POC Sodium 130 L (135-144) mmol/L Sodium 129 L (136-145) mmol/L POC Potassium 3.8 (3.3-5.0) mmol/L Potassium 3.8 (3.5-5.1) mmol/L POC Chloride 96 L (101-112) mmol/L Chloride 97 L (98-107) mmol/L Carbon Dioxide 25 (21-32) mmol/L POC Total CO2 23 L (24-31) mmol/L Anion Gap 7 (3-11) POC Anion Gap 16.0 (16-25) mmol/L POC BUN 9 (7-18) mg/dl BUN 11 (6-23) mg/dl Creatinine 0.59 L (0.6-1.2) mg/dl POC Creatinine 0.6 (0.6-1.3) mg/dl Est Cr Clr Drug Dosing 71.6 ml/min eGFR 96.89 BUN/Creatinine Ratio 18.6 (10-20) Glucose 115 H (70-99(Fasting)) mg/dl POC Glucose (other) 113 H (70-99) mg/dl Calcium 8.8 (8.6-10.3) mg/dl POC Ioniz Calcium Jeni 1.15 (1.12-1.32) mmol/l Total Bilirubin 0.5 (0.2-1.0) mg/dl AST 27 (13-39) U/L ALT 30 (7-52) U/L Alkaline Phosphatase 105 H (34-104) U/L Total Protein 6.4 (6.0-8.3) gm/dl Albumin 3.6 (3.4-5.0) gm/dl Globulin 2.8 (2.5-4.0) gm/dl Albumin/Globulin Ratio 1.3 (0.9-2) Lipase 78 (11-82) U/L Urine Color Yellow Urine Appearance Clear (Clear) Urine pH 7.5 (4.5-7.5) Ur Specific Reading 1.023 (1.000-1.030) Urine Protein Negative (Negative) Urine Glucose (UA) Negative (Negative) Urine Ketones Negative (Negative) Urine Blood Negative (Negative) Urine Nitrite Negative (Negative) Urine Bilirubin Negative (Negative) Urine Urobilinogen Negative (Negative) Ur Leukocyte Esterase Negative (Negative) Diagnostic Findings Abdomen/Pelvis CT 07/17/24 02:23 EXAM: CT abd pelvis IV con only CLINICAL HISTORY: abd pain recent sbo w/ resection 90 cc opti 320 TECHNIQUE: Multiple contiguous axial images were obtained from the level of the diaphragm to the pubis symphysis. This study was acquired after the IV administration of iodinated contrast material, given the patient's indications for the examination. If IV contrast material had not been administered, the likelihood of detecting abnormalities relevant to the patient's condition would have been substantially decreased. Coronal and sagittal reformatted images were generated and reviewed to improve anatomic localization and optimize lesion detection. CT scan was performed according to ALARA (as low as reasonably achievable). COMPARISON: 07.04.2024. FINDINGS: The visualized lung bases are clear. Stable trace pericardial effusion. The liver is normal in size and attenuation. Tiny simple cyst measuring 5 mm in segment VIII of the right lobe of the liver. There is no intra or extrahepatic biliary duct noted. Hepatic vasculature is patent. The gallbladder is present The spleen, pancreas, and adrenal glands are grossly unremarkable. Kidneys are normal in size and attenuation.T here is no hydronephrosis or perinephric stranding. The ureters are normal in caliber. No adenopathy or fluid collections are seen. Few of the jejunal loops are prominent with a maximum diameter measuring 30 mm. No obvious transition point is noted.A few terminal ileal loops are also prominent with a maximum diameter measuring 23 mm. Postoperative changes are noted in terminal ileum. The appendix is not visualized in the right lower quadrant. No evidence of acute inflammation in the right lower quadrant. The aorta is normal in caliber. The urinary bladder is normal in contour. The pelvic viscera are grossly unremarkable No aggressive appearing osseous lesions are identified. Posterior decompression and stabilization at L4-L5 level. IMPRESSION: 1. Few prominent jejunal and terminal ileal loops - likely due to ileus/ less likely due to subacute obstruction. 2. Compared to previous CT there is a significant interval decrease in dilatation of small bowel loops. No ascites. Electronically signed by Ki Cain 07-17-2024 03:38 AM Medications Administered Sodium Chloride (Nss) 500 mls @ 100 mls/hr IV .Q5H ANNEL Stop: 07/17/24 13:03 Last Admin: 07/17/24 08:32 Dose: 100 mls/hr Documented By: ELVIRA Discontinued Medications Sodium Chloride (Nss) 1,000 mls @ 999 mls/hr IV .Q1H1M ONE Stop: 07/17/24 05:16 Last Infusion: 07/17/24 05:43 Dose: Infused Documented By: Admin: 07/17/24 04:24 Dose: 999 mls/hr Documented By: DICKSON Acetaminophen (Ofirmev) 1,000 mg in 100 mls @ 400 mls/hr IV NOW STA Stop: 07/17/24 04:35 Last Infusion: 07/17/24 05:00 Dose: Infused Documented By: Admin: 07/17/24 04:24 Dose: 400 mls/hr Documented By: DICKSON Ioversol (Optiray 320 100ml) 90 ml IV ONCE ONE Stop: 07/17/24 02:47 Last Admin: 07/17/24 02:46 Dose: 90 ml Documented By: PAOLA (5) HTN (hypertension) Hypertension type: primary hypertension Qualified Code(s): I10 - Essential (primary) hypertension (6) HLD (hyperlipidemia) Hyperlipidemia type: unspecified Qualified Code(s): E78.5 - Hyperlipidemia, unspecified
[2024-07-17] MEDS: CIPROFLOXACIN / D5W 400 MG/200 ML BAG IV SCH (10:02)
[2024-07-17] MEDS: busPIRone 5 MG TAB PO SCH (10:40)
[2024-07-17] MEDS: buPROPion SR 150 MG TABCR PO SCH (10:41)
[2024-07-17 10:56] LABS: Magnesium 1.5 mg/dl (1.7-2.4)
[2024-07-17 11:10] VITALS: TEMP 98.2
--- NOTE | 2024-07-17 12:00 | Anesthesiology Progress Note ---
Date of Service 07/06/24 Anesthesia Post Procedure Vital Signs Vital Signs: Temp Pulse Pulse Resp BP BP Pulse Ox 07/17/24 11:07 07/17/24 11:03 36.8 C 77 18 138/86 98 07/17/24 08:27 96 H 16 126/66 98 07/17/24 08:12 81 07/17/24 06:28 85 07/17/24 06:09 79 18 120/65 97 07/17/24 05:30 79 17 122/67 98 07/17/24 05:00 83 19 123/69 97 07/17/24 04:30 83 20 119/71 97 07/17/24 04:00 90 20 125/67 96 07/17/24 03:00 79 20 131/80 98 07/17/24 02:54 82 07/17/24 02:38 98 07/17/24 02:19 36.4 C L 102 H 18 129/72 100 Pulse Ox O2 Del Method O2 Del Method 07/17/24 11:07 99 Room Air 07/17/24 11:03 Room Air 07/17/24 08:27 Room Air 07/17/24 08:12 07/17/24 06:28 07/17/24 06:09 07/17/24 05:30 07/17/24 05:00 07/17/24 04:30 07/17/24 04:00 07/17/24 03:00 07/17/24 02:54 07/17/24 02:38 Room Air 07/17/24 02:19 Room Air Pain Intensity Abdomen: Pain Intensity: 3 Transfer of Care Handoff Completed per policy Notes Mental Status: alert / awake / arousable Patient Amnestic to Procedure: Yes Nausea / Vomiting: adequately controlled Pain: adequately controlled Airway Patency, RR, SpO2: stable & adequate BP & HR: stable & adequate Hydration State: stable & adequate Anesthetic Complications: no major complications apparent
[2024-07-17] MEDS ORDERED: KETOROLAC TROMETHAMINE 15 MG/ML VIAL IV PRN (12:50)
--- NOTE | 2024-07-17 12:52 | Surgery Progress Note ---
Date of Service July 17, 2024 Assessment & Plan (1) Abdominal pain: Plan: Status post laparotomy with lysis of adhesions and small bowel resection with anastomosis for small bowel obstruction, readmitted overnight for abdominal pain. This is significantly improved. CT questions of possible ileus, however she is not distended, is hungry, and has good bowel function. We will advance her diet and give her a dose of Toradol. This may be musculoskeletal in nature. No surgical intervention indicated at this time Advance to low fiber diet Add Toradol Potential discharge this afternoon/evening or tomorrow Follow-up with Dr. Chavez as scheduled (2) S/P exploratory laparotomy: Admission and Anticipated Discharge Date Admission Date: July 17, 2024 Subjective Patient admitted overnight with right lower quadrant abdominal pain and possible ileus. She is 2 weeks status post laparotomy with lysis of adhesions and small bowel resection with anastomosis for small bowel obstruction. She had been doing quite well but sneezed and developed sharp pain in her right lower quadrant. She continued to tolerate a diet and have bowel movements. She presented to the emergency room because the pain was not improving, and a CT scan showed a possible ileus. She is sitting comfortably in a chair and states her pain is significantly improved but still present. She is continue to pass gas and have bowel movements. She is stating she is hungry. Physical Exam Constitutional: WD/WN, vitals as above Respiratory: normal respiratory effort, lungs clear to auscultation Cardiovascular: RRR, no murmur, no edema Gastrointestinal (Abdomen): normal bowel sounds, soft, nontender, no hepatosplenomegaly (No significant right lower quadrant tenderness to palpation) Inspection/Auscultation: + abdominal surgical incision (Dressing in place, not removed) Results & Data Vital Signs (Past 12 Hours) Vital Signs Temp Pulse Pulse Resp BP BP Pulse Ox 07/17/24 11:07 07/17/24 11:03 36.8 C 77 18 138/86 98 07/17/24 08:27 96 H 16 126/66 98 07/17/24 08:12 81 07/17/24 06:28 85 07/17/24 06:09 79 18 120/65 97 07/17/24 05:30 79 17 122/67 98 07/17/24 05:00 83 19 123/69 97 07/17/24 04:30 83 20 119/71 97 07/17/24 04:00 90 20 125/67 96 07/17/24 03:00 79 20 131/80 98 07/17/24 02:54 82 07/17/24 02:38 98 07/17/24 02:19 36.4 C L 102 H 18 129/72 100 Pulse Ox O2 Del Method O2 Del Method 07/17/24 11:07 99 Room Air 07/17/24 11:03 Room Air 07/17/24 08:27 Room Air 07/17/24 08:12 07/17/24 06:28 07/17/24 06:09 07/17/24 05:30 07/17/24 05:00 07/17/24 04:30 07/17/24 04:00 07/17/24 03:00 07/17/24 02:54 07/17/24 02:38 Room Air 07/17/24 02:19 Room Air Diagnostic Findings Personally viewed and interpreted the CT scan and agree with the assessment of some dilated loops of bowel, however I do not feel that this represents an ileus given her symptoms. PG Care Time/CCT Total # of Minutes Spent Total Time Spent with Patient: Total time spent is greater than 50% in coordination of care (as documented) at patient's floor/unit and/or counseling patient: Coding Level of Care Code 76121 SUB INP/OBS CARE 2/35MIN Diagnoses Abdominal pain R10.9 Abdominal location: unspecified location S/P exploratory laparotomy Z98.890 (1) Abdominal pain Abdominal location: unspecified location Qualified Code(s): R10.9 - Unspecified abdominal pain
[2024-07-17] MEDS: ACETAMINOPHEN 1,000 MG/100 ML VIAL IV PRN (14:05)
[2024-07-17 15:30] VITALS: BP 137/75; PULSE 90; RESP 19; O2SAT 98
[2024-07-18] MEDS ORDERED: DAKIN'S SOLN 0.25% HALF STRENGTH 473ML BTL EXT SCH (09:00)
[2024-07-18] MEDS ORDERED: POTASSIUM CHLORIDE 10 MEQ TABCR PO SCH (09:00)
--- NOTE | 2024-07-18 14:48 | Discharge Summary ---
Date of Service July 27, 2024 Admission HPI Per Admitting Provider Patient is a 69-year-old female who presented to the emergency department due to acute onset of abdominal pain last evening. Of note, the patient has had recurrent SBOs and ultimately underwent exploratory laparotomy, MAEVE, and small bowel resection with Dr. Chavez recently on 07/06/2024. The patient post-op did have a midline wound infection and a few gabrielle were removed and patient has been packing the incision once daily without any issues since. Upon arrival to the ED the patient is accompanied bedside with her and states that the pain started after she had sneezed and went to blow her nose. The pain is located in her right lower quadrant and descries it as sharp and stabbing in nature. She tried to take Tylenol at home and had laid down hoping the pain would subside, however due to it ongoing she came to the ED for further evaluation. Labs were unremarkable however CT imaging was concerning for possible ileus and surgical team was consulted. Patient was seen and evaluated early this morning, she is resting comfortably in bed, stable vitals and is nontoxic appearing. The patient states she is still experiencing right lower abdominal pain but has improved since arrival. States she has not had any issues with tolerating food and denies any onset of nausea or vomiting. She is passing gas and her last BM was last evening after dinner. Principal Diagnosis musculoskeletal pain Discharge Exam WD/WN, vitals as above Respiratory: normal respiratory effort, lungs clear to auscultation Cardiovascular: RRR, no murmur, no edema Gastrointestinal (Abdomen): normal bowel sounds, soft, nontender, no hepatosplenomegaly (No significant right lower quadrant tenderness to palpation) Inspection/Auscultation: + abdominal surgical incision (Dressing in place, not removed) Discharge Data Allergies Allergy/AdvReac Type Severity Reaction Status Date / Time hydrochlorothiazide AdvReac Mild SEVERE Verified 01/26/23 07:49 HEADACHES , DIZZINESS Consultations 07/17/24 04:08 ED Decision to Admit Stat 07/17/24 05:12 Consult Hospitalist Stat Ordered Studies 07/17/24 02:23 CT Abd and Pelvis [CT abd pelvis IV con only] Stat Hospital Course (1) Abdominal pain: Patient is a pleasant 69 yo female that is Status post laparotomy with lysis of adhesions and small bowel resection with anastomosis for small bowel obst ruction, that presented to the [facility] ER on 07/17/24 for abdominal pain (see HPI for details). A CT scan had concerns for possible ileus, however she is was without abdominal distention, had an appetite, and was without nausea/vomiting and retained good bowel function. She was admitted for observation, and her diet was advanced and she was given a dose of Toradol. The patient was seen by wound care nurse and was recommended that she follow up with wound care outpatient, and to continue seeing her home nursing and completing daily dressing changes in the interim. In the afternoon of 07/17/24 the patient was tolerating her low fiber diet, and pain was controlled. She was discharge home and was to instructed to continue her post operative care as alined with her prior discharge post surgery. All questions answered. (2) S/P exploratory laparotomy: Total Time Total Time Spent Total Time Spent (In Minutes): 10 Discharge Plan Discharge Items Patient Disposition: Home - Self-Care Reason For Visit: ILEUS Discharge Diagnosis: abdominal pain Condition on Discharge: Good Activity: As commented below Lifting: No more than 10 pounds Bathing Comment: you can shower. No soaking in pools/baths Exercise/Sports: Wait until after follow-up appointment Driving/Machine Use: no driving if taking narcotic pain medication Non-emergency contact: Surgeon Call non-emergency contact if: you have any medication questions, your temperature is above 101, your wound has increased redness, your wound has increased drainage and your wound pain has increased Follow-up/Referrals: Colton Chavez MD [Physician] - Germán Felton M.D. [Primary Care Provider] - Diet: Low Fiber Addtl Attending Provider Instructions: Continue with your daily dressing changes/packing. Continue taking all your antibiotic Keep your follow up appointment with Dr. Chavez Continue on a low fiber diet July 28 9am you have an appointment with the wound care center: [address], [place] [address] Please call and reschedule if this date and time does not work [phone] Pending Studies at Discharge: No Stand-Alone Forms: [facility] [employer], Smoking Cessation Medications and DC Order Prescriptions: Continued bupropion HCl 150 mg Tablet Sustained-Release 12 Hr 150 mg PO QAM atorvastatin 20 mg Tablet 20 mg PO DAILY lorazepam [Ativan] 0.5 mg Tablet 0.5 mg PO HS PRN (Reason: Anxiety) azelastine 137 mcg (0.1 %) [place],Non-Aerosol 1 spray INTRANASAL BID PRN (Reason: Allergy Symptoms) Rx Instructions: administer into each nostril Glucosamine Chondroitin 550-30-1 mg Capsule 1 cap PO DAILY cyanocobalamin (vitamin B-12) 1,000 mcg Tablet 1,000 mcg PO DAILY buspirone 10 mg Tablet 10 mg PO TID PreserVision AREDS 2,148 mcg-113 mg-45 mg-17.4mg Tablet 1 tab PO BID Rx Instructions: administer with AM and PM meals lisinopril 40 mg Tablet 40 mg PO DAILY amlodipine 5 mg tablet 5 mg PO DAILY polyethylene glycol 3350 [Miralax] 17 gram Powder In Packet 17 g PO DAILY coenzyme Q10 [CoQ-10] 100 mg Capsule 200 mg PO DAILY cyclosporine [Restasis] 0.05 % Dropperette 1 drp OPHTHALMIC (EYE) Q12H cholecalciferol (vitamin D3) [Vitamin D3] 25 mcg (1,000 unit) Tablet 25 mcg PO DAILY omega 8-vdv-jws-fish oil [Fish Oil] 1,000 (120-180) mg Capsule 1 cap PO DAILY oxycodone 5 mg tablet 5 - 10 mg PO .[id number] PRN (Reason: pain, for initial therapy, max 6 tabs per day) Qty: 10 0RF ciprofloxacin HCl 750 mg tablet 750 mg PO Q12H 12 Days Qty: 24 0RF potassium chloride 10 mEq packet 10 meq PO DAILY Qty: 7 0RF Align 10.5 mg (10 million cell) Tablet,Chewable 10 mg PO DAILY Qty: 30 0RF Slow-Mag 71.5 mg tablet,delayed release (DR/EC) 71.5 mg PO DAILY Qty: 30 0RF Discharge Orders: Discharge Order (Routine); Ordered 07/17/24 Ordered By: Rayray Navarro Admission Data Admit Date/Time: 07/17/24 04:53 Attending Provider: Ayden Reyes Admit Provider: Ayden Reyes Primary Care Provider: Germán Felton Other Providers: Ayden Reyes; Tejal Stock Other Interventions: Discharge Summary Assessment (RN) Last Done: 07/17/24 16:09 Supervising Physician Co-Signing Physician Notes I have seen and discussed the case with the collaborating advanced practitioner. I agree with the above H&P. I have reviewed and confirmed the patients medical history, the findings on physical examination, and the patients diagnosis and treatment plan with Luis TURNER and agree with the information documented. Patient consulted for med management. Patient to continue abx and home meds. GENERAL APPEARANCE: AxOx4, generally well-appearing female, no acute distress. HEENT: NC, AT. MMM. EOMI, clear conjunctiva, oropharynx clear. NECK: Supple without lymphadenopathy. No stiffness or restricted ROM. HEART: Normal rate and regular rhythm, normal S1/S1, no m/r/g LUNGS: CTAB, moving air well. No crackles or wheezes are heard. ABDOMEN: Soft, nontender, nondistended with good bowel sounds heard. incision still with noted purulent drainage from wound BACK: No CVAT, no obvious deformity. EXTREMITIES: Without cyanosis, clubbing or edema. NEUROLOGICAL: Grossly nonfocal. Alert and oriented, moving all 4 extremities. CN not formally tested but appear grossly intact Skin: Warm and dry without any rash. : I spent a total of 15 minutes coordinating, documenting, and providing care for this patient excluding time spent in the performance of separately billed services. All of the aforementioned completed outside of collaborating with the assigned advanced practitioner for a full treatment plan. I have reviewed the advanced practitioner's documentation, and I agree with, and take responsibility for the plan of care Coding Level of Care Code INP/OBS EV SAME DAY LV 2,70MIN Diagnoses Abdominal pain R10.9 Abdominal location: unspecified location S/P exploratory laparotomy Z98.890
== END 2024-07-17 16:12 | disposition home or self-care (01) ==
LOC: ED 02:17 → EDINP 02:17

== ENCOUNTER 2024-07-24 11:33 | Inpatient (IN) ==
[2024-07-24] MEDS ORDERED: MAGNESIUM HYDROXIDE SUSP 30 ML UDC PO PRN (12:35)
[2024-07-24] MEDS ORDERED: POLYETHYLENE (MIRALAX) 17 GM PACK PO PRN (12:35)
[2024-07-24] MEDS ORDERED: ACETAMINOPHEN 325 MG TAB PO PRN (12:35)
[2024-07-24] MEDS ORDERED: ALUMINUM/MAGNESIUM SUSP 30 ML UDC PO PRN (12:35)
--- NOTE | 2024-07-24 14:08 | History & Physical Report ---
Date of Service July 24, 2024 Assessment & Plan (1) SBO (small bowel obstruction): Plan: High Grade SBO H/O Recurrent small bowel obstruction Last BM:2 days ago NPO for for now IV fluids, Pain control, antiemetics Empiric Rocephin Surgery consulted Gentle IV fluids Consider placing NG tube Acute on chronic hyponatremia Sodium 126 Likely multifactorial secondary to SIADH, poor oral intake Gentle IV fluids Monitor sodium levels closely Hypomagnesemia Replete electrolytes as needed Monitor Other chronic conditions Mood disorder Hypertension Hyperlipidemia Seizures H/O pituitary tumor Continue home medications as able DVT Px: SCDs for now Re: will need surgery CODE STATUS Full code Admission and Anticipated Discharge Date Admission Date: July 24, 2024 History of Present Illness Chief Complaint: Abdominal pain Primary Care Provider: Germán Felton Patient is a 69-year-old female with history of recurrent small bowel obstructions, underwent exploratory laparotomy, adhesion lysis, small bowel resection by Dr. Chavez on 07/06/2024, hypertension, hyperlipidemia, chronic hyponatremia secondary to SIADH, history of seizures, pituitary tumor, mood disorder, microscopic colitis and other medical problems presents with history of worsening abdominal pain associate with nausea and vomiting. Patient states that for surgery she was thought to have surgical site wound infection and she is on ciprofloxacin for a 12-day course currently on day 11. She has been having bowel movements with the help of MiraLAX postsurgery but her last bowel movement was 2 days ago. She started to develop intractable nausea, vomiting associate with abdominal pain predominantly at surgical site associated with cramps. Denies any flatus, bowel movement for 2 days. Also states having some retrosternal discomfort which she attributes to vomiting. Currently states having headache and has been dizzy for the past 2 days. Denies any history of dyspnea, diaphoresis, cough, wheezing, fever, chills, blood in stools, diarrhea, dysuria, hematuria. Her appetite has been significantly decreased due to nausea, vomiting and abdominal pain. CT abdomen from [facility] showed findings suggestive of high-grade small bowel obstruction, site of obstruction at anastomotic site, also findings suggestive of mild ascites and no pneumoperitoneum. Allergies Allergy/AdvReac Type Severity Reaction Status Date / Time hydrochlorothiazide AdvReac Mild SEVERE Verified 01/26/23 07:49 HEADACHES , DIZZINESS Home Medications Medication Instructions Recorded Confirmed Type amlodipine 5 mg tablet 5 mg PO DAILY 07/04/24 07/17/24 History atorvastatin 20 mg tablet 20 mg PO DAILY 07/04/24 07/17/24 History azelastine 137 mcg (0.1 %) nasal 1 spray intranasal BID PRN Allergy 07/04/24 07/17/24 History spray Symptoms bupropion HCl 150 mg tablet,12 hr 150 mg PO QAM 07/04/24 07/17/24 History sustained-release buspirone 10 mg tablet 10 mg PO TID 07/04/24 07/17/24 History cholecalciferol (vitamin D3) 25 25 mcg PO DAILY 07/04/24 07/17/24 History mcg (1,000 unit) tablet (Vitamin D3) coenzyme Q10 100 mg capsule 200 mg PO DAILY 07/04/24 07/17/24 History (CoQ-10) cyanocobalamin (vitamin B-12) 1,000 mcg PO DAILY 07/04/24 07/17/24 History 1,000 mcg tablet cyclosporine 0.05 % eye drops in a 1 drp ophthalmic (eye) Q12H 07/04/24 07/17/24 History dropperette (Restasis) glucosamine sulf dipot 1 cap PO DAILY 07/04/24 07/17/24 History chlr,msm,chond 550 mg-C 30 mg-sandra 1 mg capsule (Glucosamine Chondroitin) lisinopril 40 mg tablet 40 mg PO DAILY 07/04/24 07/17/24 History lorazepam 0.5 mg tablet (Ativan) 0.5 mg PO HS PRN Anxiety 07/04/24 07/17/24 History omega 6-vrr-cry-fish oil 1,000 mg 1 cap PO DAILY 07/04/24 07/17/24 History (120 mg-180 mg) capsule (Fish Oil) polyethylene glycol 3350 17 gram 17 g PO DAILY 07/04/24 07/17/24 History oral powder packet (Miralax) vitamins A,C,Q-lqyh-dlvpuz 2,148 1 tab PO BID 07/04/24 07/17/24 History mcg-113 mg-45 mg-17.4 mg tablet (PreserVision AREDS) Bifidobacterium infantis 10.5 mg 10 mg (0.9524 x 10.5 mg (10 07/13/24 07/17/24 Rx (10 million cell) chewable tablet million cell)) PO DAILY #30 tabs (Align) ciprofloxacin HCl 750 mg tablet 750 mg PO Q12H 12 days #24 tabs 07/13/24 07/17/24 Rx magnesium chloride 71.5 mg 71.5 mg PO DAILY #30 tabs 07/13/24 07/17/24 Rx (magnesium chloride) tablet,delayed release (Slow-Mag) oxycodone 5 mg tablet 5 - 10 mg (1 - 2 x 5 mg) PO 07/13/24 07/17/24 Rx .[id number] PRN pain, for initial therapy, max 6 tabs per day #10 tabs potassium chloride 10 mEq oral 10 meq PO DAILY #7 ea 07/13/24 07/17/24 Rx packet Past Med/Surg History Problem List Ileus Anemia (Acute) Abdominal pain (Acute) Wound infection S/P exploratory laparotomy (02/25/19) Exploratory laparotomy, lysis of adhesions, excision of suture, closure of enterotomy - Ke Phan MD 02/25/19 Acute abdominal pain (Acute) SBO (small bowel obstruction) (Acute) Metabolic acidosis, increased anion gap Small bowel obstruction due to adhesions Chronic hyponatremia Acute hyponatremia (Acute) Nausea & vomiting (Acute) Abdominal pain (Acute) SBO (small bowel obstruction) (Acute) Small bowel obstruction Encounter for pre-operative examination HTN (hypertension) Postoperative ileus (Acute) Neurogenic claudication due to lumbar spinal stenosis Anxiety Hyponatremia History of seizure S/P spinal surgery HLD (hyperlipidemia) Medical History Arthritis Macular degeneration Hyperlipidemia Anxiety and depression Seizure Aug 30, 2020 > [facility] > felt caused by low sodium and taking Wellbutrin > saw neurology from [facility] and was cleared per pt History of intestinal obstruction 2/2 tethered suture from umbilical hernia repair. Spondylisthesis Seasonal allergies HTN (hypertension) Spinal stenosis Surgical History Fusion of spine lumbar History of cataract surgery rt/left [place] teeth extracted History of colonoscopy History of shoulder surgery LEFT ROTATOR CUFF History of hand surgery right/left History of lumpectomy breast lumpectomy x 3 (benign) Status post inguinal hernia repair H/O hernia repair Complicated by tethered suture causing bowel obstruction-OK NOW Family History Other No family history of adverse response to anesthesia Social History Smoking Status: Never smoker Second Hand Exposure: No; Do You Dip or Chew Tobacco: No; Hx Alcohol Use: No Hx Substance Use: No Preferred Language: Bhutanese Communication Ability: Effective Bargeman Required: No Beliefs That Will Affect Care: None marital status: Current Living Situation: Spouse Feels Safe at Home: Yes Assistive Devices: None Review of Systems Review of Systems: All systems reviewed & are unremarkable except as noted in Subjective Physical Exam Physical Exam: Physical Exam: Vitals signs as noted above General Appearance: Thin, frail, apparent distress due to abdominal pain Head: normocephalic, Atraumatic Eyes: normal inspection, EOMI Neck: supple, Trachea midline Respiratory/Chest: Normal breath sounds, CTA, No accessory muscle use Cardiovascular: S1, S2, No murmur, tachycardia Abdomen/GI:Soft, no audible bowel sounds, + tender,+ surgical site in dressing Extremities/Musculoskeletal:normal inspection, no edema Neurologic/Psych:AAOX3, grossly no focal neurological deficits Skin: normal color, warm Results & Data Results & Data Laboratory Results Short CBC 07/24/24 Range/Units 14:05 WBC 7.14 (4.8-10.8) K/ul Hgb 10.7 L (12.0-16.0) g/dl Hct 30.3 L (37.0-47.0) % Plt Count 519 H (130-400) K/uL BMP 07/24/24 14:13 Sodium 126 L Potassium 4.1 Chloride 94 L Carbon Dioxide 23 BUN 13 Creatinine 0.80 Glucose 103 H Calcium 8.9 ECG Additional Comments: EKG pending Code Status & VTE Plan VTE Prophylaxis Plan VTE Prophylaxis will be ordered: Yes
[2024-07-24] MEDS ORDERED: MoRPHine SULFATE 2 MG/ML CARP IV PRN ×3 (14:14→14:33)
[2024-07-24 14:32] LABS: Hematocrit (blood only) 30.3 % (37.0-47.0); Hemoglobin 10.7 g/dl (12.0-16.0); Mean Corpuscular Hemoglobin 32.5 pg (25.0-34.0); Mean Corpuscular Hgb Conc 35.3 g/dL (32.0-36.0); Mean Corpuscular Volume 92.1 fL (80.0-100.0); Mean Platelet Volume 8.8 fL (9.4-12.4); Platelet Count 519 K/uL (130-400); RDW Standard Deviation 47.7 fL (36.4-46.3); Red Blood Count 3.29 M/uL (4.20-5.40); White Blood Count 7.14 K/ul (4.8-10.8)
[2024-07-24] MEDS: HYDROmorphone INJ 0.5 MG/0.5 ML SYR IV STA (14:40)
[2024-07-24 14:54] LABS: Anion Gap 9 (3-11); BUN Creatinine Ratio 16.3 (10-20); Blood Urea Nitrogen 13 mg/dl (6-23); Calcium 8.9 mg/dl (8.6-10.3); Carbon Dioxide 23 mmol/L (21-32); Chloride 94 mmol/L (98-107); Glucose 103 mg/dl (70-99(Fasting)); Magnesium 1.6 mg/dl (1.7-2.4); Potassium 4.1 mmol/L (3.5-5.1); Sodium 126 mmol/L (136-145)
[2024-07-24] MEDS: Patient's HEIGHT &/or WEIGHT Needed SCH (15:15)
[2024-07-24] MEDS: NSS + 20MEQ KCL 20 MEQ/1,000 ML BAG IV SCH (15:15)
[2024-07-24] MEDS ORDERED: AZELASTINE HCL 0.1% NASAL 200 SPRAYS/27,400 MCG BTL PRN (15:48)
[2024-07-24] MEDS ORDERED: ARTIFICIAL TEARS OP PRN (16:07)
--- NOTE | 2024-07-24 16:10 | Surgery Consultation ---
<Statement entered by Little Garcia DO - 07/24/24 17:54> I have seen and examined this patient with the surgical PA. I agree with this plan. Dr. Chavez also reached out to weigh in him after we had seen the patient and was able to provide some recommendations as well. He will be unavailable for the next 2 days but advised the patient be transferred to [place] if she gets worse. We will continue to follow. Date of Consultation July 24, 2024 Assessment & Plan (1) SBO (small bowel obstruction): This is a 69y F with a PMH of HLD, HTN, spinal stenosis, anxiety, h/o SBO recently s/p exploratory laparotomy on 07/[address] Chavez for lysis of adhesions and small bowel resection x 2. Post operatively the patient had a wound infection, managed with daily packing and antibiotics. Since her surgery she was admitted to [facility] on 07/17 with abdominal pain after having a sneezing/coughing episode. CT scan mentioned possible ileus. She was at the time eating and drinking and having bowel movements without issue and was discharged on 07/18. Unfortunately the patient redeveloped worsening abdominal pain associated with nausea/vomiting over the last 24 hrs. She lives closer to [facility] so went there via EMS who upon workup with a CT scan was found to have a high grade SBO. The scan mentions high grade small bowel obstruction. The site of obstruction is likely in the pelvis at the surgical anastomotic site. The colon is non distended. Post surgical changes are seen in the anterior abdominal wall with small pockets of air at the surgical site likely related to prior surgery. Due to her recent surgery she was transferred back to [facility] for further management. The patient reports feeling better at the moment after receiving nausea/pain meds.She denies fevers/chills, but some feelings of being cold. Last passed gas on Wednesday and cannot really recall her last BM. She reported some chest discomfort with her abdominal pain and n/v. No shortness of breath. Today blood work shows WBC 7.1, Hbg 10.7, Na 126, K 4.1, Cr 0.8. Vital signs are stable. On exam patient is resting in bed. Her abdomen is soflty distended with mild generalized discomfort, no peritonitis. packing in palce to midline opening in wound with small amount of purulent fluid. Asked [facility] to send over CT images electronically, will await to review them. Patient willing to undergo NGT at this time which we will order. Recommend NPO with bowel rest, IVF, and NGT for bowel decompression. Patient is s/p exlap for SBO on 07/06, hopefully patient will recover with ongoing supportive care to get through this as repeat operation at this time would be very difficult. We will continue to monitor patient closely. Ordered KUB for tomorrow AM. Appreciate medicine assistance. Pt seen/examined with Dr. Garcia. History of Present Illness Attending Physician: Shaan Willoughby MD History of Present Illness This is a 69y F with a PMH of HLD, HTN, spinal stenosis, anxiety, h/o SBO recently s/p exploratory laparotomy on 07/[address] Chavez for lysis of adhesions and small bowel resection x 2. Post operatively the patient had a wound infection, managed with daily packing and antibiotics. Since her surgery she was admitted to [facility] on 07/17 with abdominal pain after having a sneezing/coughing episode. CT scan mentioned possible ileus. She was at the time eating and drinking and having bowel movements without issue and was discharged on 07/18. Unfortunately the patient redeveloped worsening abdominal pain associated with nausea/vomiting over the last 24 hrs. She lives closer to [facility] so went there via EMS who upon workup with a CT scan was found to have a high grade SBO. The scan mentions high grade small bowel obstruction. The site of obstruction is likely in the pelvis at the surgical anastomotic site. The colon is non distended. Post surgical changes are seen in the anterior abdominal wall with small pockets of air at the surgical site likely related to prior surgery. Due to her recent surgery she was transferred back to [facility] for further management. The patient reports feeling better at the moment after receiving nausea/pain meds.She denies fevers/chills, but some feelings of being cold. Last passed gas on Wednesday and cannot really recall her last BM. She reported some chest discomfort with her abdominal pain and n/v. No shortness of breath. Allergies Allergy/AdvReac Type Severity Reaction Status Date / Time hydrochlorothiazide AdvReac Mild SEVERE Verified 01/26/23 07:49 HEADACHES , DIZZINESS Home Medications Medication Instructions Recorded Confirmed Type amlodipine 5 mg tablet 5 mg PO DAILY 07/04/24 07/24/24 History atorvastatin 20 mg tablet 20 mg PO DAILY 07/04/24 07/24/24 History azelastine 137 mcg (0.1 %) nasal 1 spray intranasal BID PRN Allergy 07/04/24 07/24/24 History spray Symptoms bupropion HCl 150 mg tablet,12 hr 150 mg PO QAM 07/04/24 07/24/24 History sustained-release buspirone 10 mg tablet 10 mg PO TID 07/04/24 07/24/24 History cholecalciferol (vitamin D3) 25 25 mcg PO DAILY 07/04/24 07/24/24 History mcg (1,000 unit) tablet (Vitamin D3) coenzyme Q10 100 mg capsule 200 mg PO DAILY 07/04/24 07/24/24 History (CoQ-10) cyanocobalamin (vitamin B-12) 1,000 mcg PO DAILY 07/04/24 07/24/24 History 1,000 mcg tablet cyclosporine 0.05 % eye drops in a 1 drp ophthalmic (eye) Q12H 07/04/24 07/24/24 History dropperette (Restasis) glucosamine sulf dipot 1 cap PO DAILY 07/04/24 07/24/24 History chlr,msm,chond 550 mg-C 30 mg-sandra 1 mg capsule (Glucosamine Chondroitin) lisinopril 40 mg tablet 40 mg PO DAILY 07/04/24 07/24/24 History lorazepam 0.5 mg tablet (Ativan) 0.5 mg PO HS PRN Anxiety 07/04/24 07/24/24 History omega 1-ifk-jui-fish oil 1,000 mg 1 cap PO DAILY 07/04/24 07/24/24 History (120 mg-180 mg) capsule (Fish Oil) polyethylene glycol 3350 17 gram 17 g PO DAILY 07/04/24 07/24/24 History oral powder packet (Miralax) vitamins A,C,A-bjlm-zilyrl 2,148 1 tab PO BID 07/04/24 07/24/24 History mcg-113 mg-45 mg-17.4 mg tablet (PreserVision AREDS) Bifidobacterium infantis 10.5 mg 10 mg (0.9524 x 10.5 mg (10 07/13/24 07/24/24 Rx (10 million cell) chewable tablet million cell)) PO DAILY #30 tabs (Align) ciprofloxacin HCl 750 mg tablet 750 mg PO Q12H 12 days #24 tabs 07/13/24 07/24/24 Rx magnesium chloride 71.5 mg 71.5 mg PO DAILY #30 tabs 07/13/24 07/24/24 Rx (magnesium chloride) tablet,delayed release (Slow-Mag) oxycodone 5 mg tablet 5 - 10 mg (1 - 2 x 5 mg) PO 07/13/24 07/24/24 Rx .[id number] PRN pain, for initial therapy, max 6 tabs per day #10 tabs potassium chloride 10 mEq oral 10 meq PO DAILY #7 ea 07/13/24 07/24/24 Rx packet Patient History Medical History Arthritis Macular degeneration Hyperlipidemia Anxiety and depression Seizure Aug 30, [address] > [facility] > felt caused by low sodium and taking Wellbutrin > saw neurology from [place] and was cleared per pt History of intestinal obstruction 2/2 tethered suture from umbilical hernia repair. Spondylisthesis Seasonal allergies HTN (hypertension) Spinal stenosis Surgical History Fusion of spine lumbar History of cataract surgery rt/left [place] teeth extracted History of colonoscopy History of shoulder surgery LEFT ROTATOR CUFF History of hand surgery right/left History of lumpectomy breast lumpectomy x 3 (benign) Status post inguinal hernia repair H/O hernia repair Complicated by tethered suture causing bowel obstruction-OK NOW Family History Other No family history of adverse response to anesthesia Social History Smoking Status: Never smoker Second Hand Exposure: No; Do You Dip or Chew Tobacco: No; Tobacco Cessation Education Requested by Patient: No Hx Alcohol Use: Yes Alcohol type: hard liquor Alcohol type Comment: socially Alcohol Intake Frequency: 2-4 x/Month Hx Substance Use: No Preferred Language: Slovak Communication Ability: Effective Air Defense Control Officer Required: No Beliefs That Will Affect Care: None marital status: Current Living Situation: Spouse Other Information That Helps Us Care for You: No Feels Safe at Home: Yes Assistive Devices: Wheelchair Review of Systems Constitutional: no fever and no chills Respiratory: no cough and no dyspnea Cardiovascular: + chest pain (some chest pain associated with abd pain/n/v) Gastrointestinal: + abdominal pain, + bloating, + nausea, + vomiting and + constipation Genitourinary: no problem reported Physical Exam Physical Exam: awake, alert, lying in bed appears comfortable at this time Respiratory: normal respiratory effort Gastrointestinal (Abdomen): Inspection/Auscultation: + abdomen distended (mild) and + abdominal surgical incision (midline incision gabrielle removed, steri in place) Percussion/Palpation: + abdomen tender (mild generalized discomfort to palpation) and abdomen soft; no guarding packing to inferior portion of incision with some purulence noted on dressing Results & Data Vital Signs (Past 12 Hours) Vital Signs Temp Pulse Resp BP Pulse Ox O2 Del Method 07/24/24 14:35 98.2 F 83 20 132/64 98 Room Air PG Care Time/CCT Total # of Minutes Spent Total Time Spent with Patient: Total time spent is greater than 50% in coordination of care (as documented) at patient's floor/unit and/or counseling patient: Coding Level of Care Code 90764 INT INP/OBS CARE 2/55MIN Diagnoses SBO (small bowel obstruction) K56.609
[2024-07-24] MEDS: FAMOTIDINE 20MG IV PUSH 20 MG/5 ML SYR IV SCH (16:18)
[2024-07-24] MEDS: MAGNESIUM SULFATE / D5W 1 GM/100 ML BAG IV ONE (16:18)
[2024-07-24] MEDS: cefTRIAXone SODIUM 1,000 MG/50 ML BAG IV SCH (17:29)
[2024-07-24 17:52] LABS: Appearance Urine Clear (Clear); Bilirubin Urine Negative (Negative); Blood Urine Negative (Negative); Color Urine Yellow; Glucose Urine UA Negative (Negative); Ketones Urine Negative (Negative); Leukocyte Esterase Urine Negative (Negative); Nitrite Urine Negative (Negative); Protein Urine Negative (Negative); Specific Gravity Urine > 1.045 (1.000-1.030); Urobilinogen Urine Negative (Negative); pH Urine 6.5 (4.5-7.5)
[2024-07-24] MEDS: ACETAMINOPHEN 1,000 MG/100 ML VIAL IV PRN (19:38)
[2024-07-24] MEDS: ACETAMINOPHEN 1,000 MG/100 ML VIAL IV STA (19:42)
[2024-07-24 20:58] LABS: BUN Creatinine Ratio 15.2 (10-20); Calcium 8.3 mg/dl (8.6-10.3); Creatinine Clr Calc Pharmacy 44.8 ml/min
[2024-07-24] MEDS: HYDROmorphone INJ 0.5 MG/0.5 ML SYR IV PRN (21:34)
--- OUTSIDE RECORDS SUMMARY | 2024-07-24 23:41 | External Medical Summary | Summary of Care ---
Author Name Unknown Organization [facility] Address [address] [place] [address] Phone [phone] Care Team Providers Care Access Consultant Name Role Phone Germán Felton MD Primary Care Provider + Reason for Visit * Reason Onset Date Comments Fax 07/21/2024 Order Request 07/21/2024 Encounter Details Date Type Department Care Team (Late st Contact Info) Description 07/21/2024 Telephone General Surgery, [facility] [address] [place] [address] Services, Scheduling [address] [place] [address] Fax; Order Request Allergies Active Allergy Reactions Criticality Noted Date Comments Abaloparatide 06/06/2024 Other Reaction(s): heart palpitations Bupropion Medium 01/26/2023 Other Reaction(s): low sodium/requires monitoring while taking Hydrochlorothiazide Low 01/26/2023 Other Reaction(s): SEVERE HEADACHES , DIZZINESS Teriparatide 06/06/2024 Other Reaction(s): Palpitations documented as of this encounter (statuses as of 07/21/2024) Medications Ibuprofen 200 MG Oral Capsule Take [...] as of this encounter (statuses as of 07/21/2024) Active Problems Problem Noted Date Diagnosed Date Small bowel obstruction 06/24/2024 documented as of this encounter (statuses as of 07/21/2024) Social History Tobacco Use Types Packs/Day Years [...] encounter Miscellaneous Notes * Addendum Note - Belén Anderson LPN - 07/21/2024 10:24 AM ESTAddended by: BELÉN ANDERSON on: 07/21/2024 10:24 AM Modules accepted: Orders * Telephone Encounter - Belén Anderson LPN - 07/21/2024 10:09 AM EST Contacted and spoke with Bernadette and she reported that the nurses only go to see the patient once weekly and will need to get the iodoform packing through local pharmacy that supplied the packing Called patient and she would like the Rx to be sent to [facility]. Pended Rx if agreeable. Thanks * Telephone Encounter - Phoebe Ryan OSA - 07/21/2024 9:43 AM EST Pt's Home Health nurse is asking if Dr. Anderson could fax over and order for Iodoform packing? [facility] phone # [phone] Pt did not have the fax number documented in this encounter Plan of Treatment Upcoming Encounters Date Type Department Care Team (Late st Contact Info) Description 08/11/2024 9:45 AM EST Office Visit General Surgery, [facility] [address] [place] [address] Colton Anderson MD [address] [place] [address] 09/11/2024 11:00 AM EST Office Visit Ophthalmology, [facility] [address] [place] [address] David Kinney DO [address] [place] [address] Health Maintenance Due Date Last Done Comments [...] as of this encounter Visit Diagnoses Diagnosis Open abdominal wall wound- Primary Open wound of abdominal wall, anterior, without mention of complication Small bowel obstruction (HCC) Unspecified intestinal obstruction Postop check Follow-up examination, following unspecified surgery documented in this encounter Advance Directives * [...] Power of Attor nikolai? No Care Teams Access Consultant Relationship Specialty Start Date End Date Germán Felton MD [address] [place] [address] PCP - General Family Medicine 01/12/19 documented as of this encounter
--- OUTSIDE RECORDS SUMMARY | 2024-07-24 23:41 | External Medical Summary | Summary of Care ---
Author Name Unknown Organization [facility] Address [address] [place] [address] Phone [phone] Care Team Providers Care Lieutenant Shift Supervisor Name Role Phone Germán Felton MD Primary Care Provider + Reason for Visit * Reason Onset Date Comments Fax 07/21/2024 Order Request 07/21/2024 Encounter Details Date Type Department Care Team (Late st Contact Info) Description 07/21/2024 Telephone General Surgery, [facility] [address] [place] [address] Services, Scheduling [address] [place] [address] Fax; Order Request Allergies Active Allergy Reactions [...] encounter Miscellaneous Notes * Telephone Encounter - Phoebe Ryan OSA - 07/21/2024 9:43 AM EST Pt's Home Health nurse is asking if Dr. Chavez could fax over and order for Iodoform packing? [facility] phone # [phone] Pt did not have the fax number documented in this encounter Plan of Treatment Upcoming Encounters Date Type Department Care Team (Late st Contact Info) Description 08/11/2024 9:45 AM EST Office Visit General Surgery, [facility] [address] [address] Colton Chavez MD [address] [address] 09/11/2024 11:00 AM EST Office Visit Ophthalmology, [facility] [address] [address] David Kinney, DO [address] [place] [address] Health Maintenance Due Date Last Done Comments [...] Power of Attor nikolai? No Care Teams Lieutenant Shift Supervisor Relationship Specialty Start Date End Date Germán Felton MD [address] [place] [address] PCP - General Family Medicine 01/12/19 documented as of this encounter
--- OUTSIDE RECORDS SUMMARY | 2024-07-24 23:42 | External Medical Summary | Summary of Care ---
Author Name Unknown Organization [facility] Address [address] [facility] [address] Phone [phone] Care Team Providers Care Center Mgr Name Role Phone Germán Felton MD Primary Care Provider + Reason for Visit * Reason Comments Post-Op Exploratory laparoto my Encounter Details Date Type Department Care Team (Late st Contact Info) Description 07/19/2024 10:30 AM EST Office Visit General Surgery, [facility] [address] [place] [address] Colton Chavez MD [address] [place] [address] Postop check* Allergies Active Allergy Reactions Criticality Noted Date Comments Abaloparatide 06/06/2024 Other Reaction(s): heart palpitations Bupropion Medium 01/26/2023 Other Reaction(s): low sodium/requires monitoring while taking Hydrochlorothiazide Low 01/26/2023 Other Reaction(s): SEVERE HEADACHES , DIZZINESS Teriparatide 06/06/2024 Other Reaction(s): Palpitations documented as of this encounter (statuses as of 07/19/2024) Medications Ibuprofen 200 MG Oral Capsule Take [...] as of this encounter (statuses as of 07/19/2024) Active Problems Problem Noted Date Diagnosed Date Small bowel obstruction 06/24/2024 documented as of this encounter (statuses as of 07/19/2024) Social History Tobacco Use Types Packs/Day Years [...] as of this encounter Progress Notes * Colton Chavez MD - 07/19/2024 1:52 PM EST Two weeks status post exploratory laparotomy with lysis of adhesions for bowel obstruction. She required 2 small bowel resection with reanastomosis. Complicated by small wound infection. The wound was opened at the base in his drained. She was packing it with Nu Gauze. She returns in the hospital few days ago due to his significant amount of pain. CT was negative. She is feeling better now. She denies fevers and chills. She denies other complaints. On exam, the incision is healing well without erythema. At the base there is a 2 cm opening with packing. The packing was removed and replaced. Juan were removed and replaced with benzoin and Steri-Strips. She will continue the packing of the wound at home with the wound care nurse. She will follow up in2 weeks. She will continue to follow a 10 lb weight restriction. She will call with any new or concerning symptoms in the meantime. documented in this encounter Nursing Notes * Vaishnavi Gonsalez LPN - 07/19/2024 10:18 AM EST Chief Complaint Patient presents with Post-Op Exploratory laparotomy Patient does have pain of a 1 if she is doing something, just sitting it is nothing. She has been having packing and dressing change every day, they said it is healing nicely. She said that she had an infection. She went into ER on 07/17/2024. documented in this encounter Plan of Treatment Upcoming Encounters Date Type Department Care Team (Late st Contact Info) Description 08/11/2024 9:45 AM EST Office Visit General Surgery, [facility] [address] [place] [address] Colton Chavez MD [address] [place] [address] 09/11/2024 11:00 AM EST Office Visit Ophthalmology, [facility] [address] [place] [address] David Kinney DO [address] [place] [address] Health Maintenance Due Date Last Done Comments [...] as of this encounter Visit Diagnoses Diagnosis Postop check- Primary Follow-up examination, following unspecified surgery documented in [...] Power of Attor nikolai? No Care Teams Center Mgr Relationship Specialty Start Date End Date Germán Felton MD [address] [place] [address] PCP - General Family Medicine 01/12/19 documented as of this encounter
--- NOTE | 2024-07-25 00:42 | XRay Report ---
Exam(s): XR KUB EXAM: XR Abdomen, 1 View CLINICAL HISTORY: Reason for exam: NG tube placement. TECHNIQUE: Frontal supine view of the abdomen/pelvis. COMPARISON: June 24, 2024 FINDINGS: Gastrointestinal tract: There are multiple dilated small bowel loops within the mid to upper abdomen measuring up to 4 cm in diameter, similar to previous. Bones/joints: Instrumentation of the lower lumbar spine. No acute fracture. Tubes, lines and devices: There is an NG tube extending into the stomach. The stomach is partially distended but nondilated. IMPRESSION: 1. There is an NG tube extending into the stomach. The stomach is partially distended but nondilated. 2. There are multiple dilated small bowel loops within the mid to upper abdomen measuring up to 4 cm in diameter, similar to previous. Electronically signed by: Ramakrishna Kenny MD 07/25/24 00:41 AM
[2024-07-25] MEDS: LORazepam 2 MG/1 ML VIAL IV PRN (01:09)
[2024-07-25] MEDS: ONDANSETRON INJ 2 MG/ML 2 ML VIAL IV PRN (01:13)
[2024-07-25 06:36] LABS: Hemoglobin 9.1 g/dl (12.0-16.0); Mean Corpuscular Hgb Conc 33.7 g/dL (32.0-36.0); Mean Corpuscular Volume 95.1 fL (80.0-100.0); Mean Platelet Volume 8.9 fL (9.4-12.4); Platelet Count 470 K/uL (130-400); RDW Coefficient of Variation 14.7 % (11.5-14.5); RDW Standard Deviation 51.1 fL (36.4-46.3); Red Blood Count 2.84 M/uL (4.20-5.40); White Blood Count 4.85 K/ul (4.8-10.8)
[2024-07-25 07:30] LABS: Magnesium 1.7 mg/dl (1.7-2.4); Potassium 4.3 mmol/L (3.5-5.1)
[2024-07-25 07:36] LABS: BUN Creatinine Ratio 16.2 (10-20); Creatinine Clr Calc Pharmacy 60.6 ml/min; Phosphorus 3.7 mg/dl (2.5-4.9)
--- NOTE | 2024-07-25 07:59 | XRay Report ---
EXAM: XR KUB/Abdomen 1 view CLINICAL HISTORY: SBO KAA/KAB TECHNIQUE: X-ray images of the abdomen were obtained in frontal position. COMPARISON: CR 06/24/2024 , CT 07/17/2024. FINDINGS: Prominent air distended small bowel shadows are seen with maximum caliber reaching up to 3.6 cm suggestive of ileus/subacute small bowel obstruction. No intra-abdominal free air is seen. Large bowel is collapsed. Lumbar spine fixators are noted in situ. Few surgical gabrielle are seen. Degenerative changes of bilateral hip joints. IMPRESSION: 1. Prominent air distended small bowel shadows are seen with maximum caliber reaching up to 3.7 cm suggestive of ileus/subacute small bowel obstruction. No significant change noted in comparison to prior CT and X ray. 2. No intra-abdominal free air is seen. 3. Lumbar spine fixators are noted in situ. 4. Few surgical gabrielle are seen. 5. Degenerative changes of bilateral hip joints. Electronically signed by Leela Gaona 07-25-2024 07:58 AM
--- NOTE | 2024-07-25 10:42 | Surgery Progress Note ---
Date of Service July 25, 2024 Assessment & Plan (1) SBO (small bowel obstruction): Plan: This is a 69y F with a PMH of HLD, HTN, spinal stenosis, anxiety, h/o SBO recently s/p exploratory laparotomy on 07/[address] Chavez for lysis of adhesions and small bowel resection x 2. Post operatively the patient had a wound infection, managed with daily packing and antibiotics. Since her surgery she was admitted to [facility] on 07/17 with abdominal pain after having a sneezing/coughing episode. CT scan mentioned possible ileus. She was at the time eating and drinking and having bowel movements without issue and was discharged on 07/18. Unfortunately the patient redeveloped worsening abdominal pain associated with nausea/vomiting over the last 24 hrs. She lives closer to [facility] so went there via EMS who upon workup with a CT scan was found to have a high grade SBO. The scan mentions high grade small bowel obstruction. The site of obstruction is likely in the pelvis at the surgical anastomotic site. The colon is non distended. Post surgical changes are seen in the anterior abdominal wall with small pockets of air at the surgical site likely related to prior surgery. Due to her recent surgery she was transferred back to [facility] for further management. Today she states she feels much better. Abdominal cramping is reduced and she has regained bowel function with flatus and BMs. Continue NGT decompression today with NPO, IVF. May clamp to ambulate. Abdominal X-ray in the am. Will follow up in the am. Admission and Anticipated Discharge Date Admission Date: July 24, 2024 Subjective [place] is comfortable this am. States previous pain resolved. She denies nausea, has started to pass flatus and liquid BM. Physical Exam Constitutional: + thin; not ill appearing, not in distre ss and not diaphoretic Respiratory: normal respiratory effort; no respiratory distress, no labored breathing and does not use accessory muscles Cardiovascular: Rate/Rhythm: regular rate; not tachycardic Gastrointestinal (Abdomen): Percussion/Palpation: abdomen soft; abdomen nontender, no guarding and abdomen not rigid Protuberant midline incision healing well. Small area of opening lower aspect of the incision with packing. Minimal serous drainage. Results & Data Vital Signs (Past 12 Hours) Vital Signs Temp Pulse Pulse Pulse Resp BP Pulse Ox 07/25/24 08:46 37.1 C 82 18 103/62 98 07/25/24 07:38 85 07/25/24 04:00 36.9 C 86 18 116/64 97 07/24/24 23:02 36.7 C 85 18 131/70 96 O2 Del Method 07/25/24 08:46 Room Air 07/25/24 07:38 07/25/24 04:00 Room Air 07/24/24 23:02 Room Air PG Care Time/CCT Total # of Minutes Spent Total Time Spent with Patient: Total time spent is greater than 50% in coordination of care (as documented) at patient's floor/unit and/or counseling patient: Coding Level of Care Code 63006 SUB INP/OBS CARE 09/02MIN Diagnoses SBO (small bowel obstruction) K56.609
--- NOTE | 2024-07-25 12:30 | Hospitalist Progress Note ---
Date of Service July 25, 2024 Assessment & Plan (1) Small bowel obstruction due to postoperative adhesions: (2) Ileus: (3) Wound infection: (4) S/P exploratory laparotomy: (5) Chronic hyponatremia: (6) HTN (hypertension): Plan Patient who is status post recent exploratory lap with lysis of adhesions and small bowel resection x 2 due to recurrent small bowel obstruction presents with ileus/small bowel obstruction. She also is dealing with a superficial surgical wound infection from her exploratory lap. Patient did agree to NG tube drainage, continue NG tube Continue n.p.o. status Continue IV fluids Continue to monitor electrolytes and renal function Communication with surgical team, they will take the lead on when to clamp NG tube and start any type of oral intake. Plan is to continue with medical management at least for the next 24 hours since patient does seem to be having some return of bowel function Continue to monitor for resumes and of bowel function Continue Rocephin for wound infection. and daughter at bedside updated to plan of care. They questioned about PICC line and TPN. Patient has not had a great nutrition over the past month due to her frequent small bowel obstructions, however with it seeming as though her bowel function is resuming I would hold off at this time on parenteral nutrition and PICC line. However may need to be considered if we do not resume a diet in the next 48 to 72 hours. Admission and Anticipated Discharge Date Admission Date: July 24, 2024 Subjective Patient reports had explosive liquid stool overnight. Also reports passing some flatus Physical Exam Physical Exam: Constitutional: Alert, nontoxic in appearance but fatigued. HEENT: Mucous membranes moist. NG tube right nares Lungs: Clear to auscultation, decreased, no wheezes rales or rhonchi CV: S1-S2, regular Abdomen: Soft, mild tenderness, mild distention, hypoactive bowel sounds, surgical dressing clean and dry Extremities: No significant edema Neuro: No focal deficits Psych: Cooperative, normal mood Results & Data Results & Data Vital Signs (Past 12 Hours) Vital Signs Temp Pulse Pulse Pulse Resp BP Pulse Ox 07/25/24 11:49 36.7 C 106 H 18 110/68 97 07/25/24 08:46 37.1 C 82 18 103/62 98 07/25/24 07:38 85 07/25/24 04:00 36.9 C 86 18 116/64 97 O2 Del Method 07/25/24 11:49 Room Air 07/25/24 08:46 Room Air 07/25/24 07:38 07/25/24 04:00 Room Air Laboratory Results Reviewed imaging, laboratory and diagnostic studies. Pertinent findings as below. Personally reviewed KUB, still some evidence of bowel obstruction Sodium 130 Potassium 4.3 Hemoglobin 9.1 WBCs 4.8 (6) HTN (hypertension) Hypertension type: primary hypertension Qualified Code(s): I10 - Essential (primary) hypertension
[2024-07-25] MEDS: CHLORASEPTIC (PHENOL) 1.4% SOLN 180 ML BTL MT PRN (14:08)
[2024-07-25] MEDS: levoFLOXacin/D5W 750 MG/150 ML BAG IV SCH (18:10)
[2024-07-25] MEDS: DICLOFENAC SOD 1% GEL 100 GM TUBE EXT PRN (23:12)
[2024-07-26] MEDS: COUGH DROP (SUGAR FREE) LOZ 24 LOZ/1 BOX BUCCAL PRN (03:57)
--- NOTE | 2024-07-26 07:45 | Surgery Progress Note ---
<Statement entered by Little Garcia DO - 07/26/24 11:08> I have seen and examined this patient with the surgical team this am. This am states she is passing a lot of gas. Clamp NGT for today. Keep clamped today, NPO. F/U am abdominal X-ray tomorrow am. Date of Service July 26, 2024 Assessment & Plan (1) Small bowel obstruction due to postoperative adhesions: Plan: Pt w/ history of exlap, lysis of adhesion and small bowel resection x 2 on 07/06 here with recurring SBO Pt feeling improvement in her symptoms since NGT decompression She denies pain/nausea and is starting to pass more gas and had a couple BMs NGT 400 last 24 hrs Will obtain KUB, if ongoing improvement we can consider a clamp trial and see how she fairs Encouraging she is improving w/ supportive care Continue daily packing changes OOB/ambulating and pulmonary toilet Will f/u with surgeon later today Admission and Anticipated Discharge Date Admission Date: July 24, 2024 Subjective Patient feeling improvement in her symptoms. She denies any nausea/pain. She is passing flatus and had a couple small BMs. Reports a headache. Physical Exam Physical Exam: awake/alert, no distress Gastrointestinal (Abdomen): Percussion/Palpation: abdomen soft dressings intact Results & Data Vital Signs (Past 12 Hours) Vital Signs Temp Pulse Resp BP Pulse Ox O2 Del Method 07/26/24 03:25 97.9 F 87 16 122/62 95 Room Air 07/25/24 22:30 98.2 F 80 16 121/62 99 Room Air PG Care Time/CCT Total # of Minutes Spent Total Time Spent with Patient: Total time spent is greater than 50% in coordination of care (as documented) at patient's floor/unit and/or counseling patient: Coding Level of Care Code 43069 SUB INP/OBS CARE 09/02MIN Diagnoses Small bowel obstruction due to postoperative adhesions K91.30
--- NOTE | 2024-07-26 09:15 | XRay Report ---
KUB CLINICAL HISTORY: Small bowel obstruction. COMPARISON STUDY: KUB July 25, 2024. CT of the abdomen and pelvis July 24, 2024. FINDINGS: Tip of nasogastric tube is within the distal body of the stomach. Postoperative findings wi thin the spine are incidentally noted. Multiple loops of moderately dilated small bowel measure up to 5.1 cm in caliber. Small bowel dilatation is similar to KUB July 25, 2024. This has improved sin ce CT of July 24, 2024. Scattered gas within the colon is present. IMPRESSION: 1. Moderate small bowel dilatation, similar to prior KUB. This represents a persistent small bowel ob struction although small bowel dilatation has improved since CT of July 24, 2024. 2. Appropriately positioned nasogastric tube. ACT 112: Negative or not required by law. Electronically signed by: Gerry Mcdonnell M.D. 07/26/2024 9:14 AM
[2024-07-26 09:31] LABS: Hematocrit (blood only) 28.8 % (37.0-47.0); Hemoglobin 9.9 g/dl (12.0-16.0); Mean Corpuscular Hemoglobin 32.8 pg (25.0-34.0); Mean Corpuscular Hgb Conc 34.4 g/dL (32.0-36.0); Mean Corpuscular Volume 95.4 fL (80.0-100.0); Mean Platelet Volume 8.8 fL (9.4-12.4); Platelet Count 442 K/uL (130-400); RDW Coefficient of Variation 13.7 % (11.5-14.5); Red Blood Count 3.02 M/uL (4.20-5.40); White Blood Count 4.51 K/ul (4.8-10.8)
[2024-07-26 09:48] LABS: BUN Creatinine Ratio 9.8 (10-20); Calcium 8.2 mg/dl (8.6-10.3); Creatinine Clr Calc Pharmacy 67.9 ml/min; Potassium 3.6 mmol/L (3.5-5.1)
--- NOTE | 2024-07-26 12:42 | Hospitalist Progress Note ---
Date of Service July 26, 2024 Assessment & Plan (1) Small bowel obstruction due to postoperative adhesions: (2) Ileus: (3) Wound infection: (4) S/P exploratory laparotomy: (5) Chronic hyponatremia: (6) HTN (hypertension): Plan Ms. Ramos is a 69-year-old female with past medical history significant for hypertension, hyperlipidemia, chronic hyponatremia, SIADH per records, history of seizures per records, pituitary tumor per records anxiety/mood disorder, history of microscopic colitis who presented with abdominal pain and nausea and found to have another small bowel obstruction. s/p 07/06 small bowel resection. Patient with history of complicated surgical intervention and sent to [facility] [place] 06/24 for SBO, but ultimately with return of bowel function. Patient admitted on 07/04 and underwent resection 07/06. Patient with presentation briefly on 07/17 for abdominal pain; however, patient once more presented for pain on 07/24/2024 Patient with NGT placed for decompression #Recurrent SBO #S/p small bowel resection 07/06 #SSI Patient did agree to NG tube drainage, continue NG tube -NGT on clamp trial, doing well thus far Levofloxacin for Klebsiella surgical infection Continue to monitor electrolytes and renal function Continue to monitor for resumes and of bowel function Will consider parental nutrition contingent on next 24-48hours Surgery following, appreciate recommendations and NG management Consult to casing puller for nutritional concerns Continue IVF DVT ambulate/scds Dispo 1-2 days contingent on recovery/nutrition intake Admission and Anticipated Discharge Date Admission Date: July 24, 2024 Subjective Patient ambulatory, NG clamped at this time Reports flatus and denies any nausea/pain or other concerns Reports feeling quite emotional over events, but otherwise working to be optimistic Physical Exam Constitutional: WD/WN, vitals as above Respiratory: normal respiratory effort, lungs clear to auscultation Cardiovascular: RRR, no murmur, no edema Gastrointestinal (Abdomen): soft, dressing CDI, nondistended Results & Data Results & Data Vital Signs (Past 12 Hours) Vital Signs Temp Pulse Resp BP Pulse Ox O2 Del Method 07/26/24 07:53 36.9 C 83 18 116/66 97 Room Air 07/26/24 03:25 36.6 C 87 16 122/62 95 Room Air Laboratory Results Short CBC 07/26/24 Range/Units 09:06 WBC 4.51 L (4.8-10.8) K/ul Hgb 9.9 L (12.0-16.0) g/dl Hct 28.8 L (37.0-47.0) % Plt Count 442 H (130-400) K/uL BMP 07/26/24 09:06 Sodium 131 L Potassium 3.6 Chloride 99 Carbon Dioxide 24 BUN 6 Creatinine 0.61 Glucose 102 H Calcium 8.2 L Medications Administered Home Medications Medication Instructions Recorded Confirmed Last Taken amlodipine 5 mg tablet 5 mg PO DAILY 07/04/24 07/24/24 07/16/24 atorvastatin 20 mg tablet 20 mg PO DAILY 07/04/24 07/24/24 07/16/24 azelastine 137 mcg (0.1 %) nasal 1 spray intranasal BID PRN Allergy 07/04/24 07/24/24 Unknown spray Symptoms bupropion HCl 150 mg tablet,12 hr 150 mg PO QAM 07/04/24 07/24/24 07/16/24 sustained-release buspirone 10 mg tablet 10 mg PO TID 07/04/24 07/24/24 07/16/24 cholecalciferol (vitamin D3) 25 25 mcg PO DAILY 07/04/24 07/24/24 07/16/24 mcg (1,000 unit) tablet (Vitamin D3) coenzyme Q10 100 mg capsule 200 mg PO DAILY 07/04/24 07/24/24 07/16/24 (CoQ-10) cyanocobalamin (vitamin B-12) 1,000 mcg PO DAILY 07/04/24 07/24/24 07/16/24 1,000 mcg tablet cyclosporine 0.05 % eye drops in a 1 drp ophthalmic (eye) Q12H 07/04/24 07/24/24 07/16/24 dropperette (Restasis) glucosamine sulf dipot 1 cap PO DAILY 07/04/24 07/24/24 07/16/24 chlr,msm,chond 550 mg-C 30 mg-sandra 1 mg capsule (Glucosamine Chondroitin) lisinopril 40 mg tablet 40 mg PO DAILY 07/04/24 07/24/24 07/16/24 lorazepam 0.5 mg tablet (Ativan) 0.5 mg PO HS PRN Anxiety 07/04/24 07/24/24 Unknown omega 1-qns-bfh-fish oil 1,000 mg 1 cap PO DAILY 07/04/24 07/24/24 07/16/24 (120 mg-180 mg) capsule (Fish Oil) polyethylene glycol 3350 17 gram 17 g PO DAILY 07/04/24 07/24/24 Unknown oral powder packet (Miralax) vitamins A,C,N-qdlp-lhcjvr 2,148 1 tab PO BID 07/04/24 07/24/24 07/16/24 mcg-113 mg-45 mg-17.4 mg tablet (PreserVision AREDS) Bifidobacterium infantis 10.5 mg 10 mg (0.9524 x 10.5 mg (10 07/13/24 07/24/24 07/16/24 (10 million cell) chewable tablet million cell)) PO DAILY #30 tabs (Align) ciprofloxacin HCl 750 mg tablet 750 mg PO Q12H 12 days #24 tabs 07/13/24 07/24/24 07/16/24 magnesium chloride 71.5 mg 71.5 mg PO DAILY #30 tabs 07/13/24 07/24/24 07/16/24 (magnesium chloride) tablet,delayed release (Slow-Mag) oxycodone 5 mg tablet 5 - 10 mg (1 - 2 x 5 mg) PO 07/13/24 07/24/24 Unknown .[id number] PRN pain, for initial therapy, max 6 tabs per day #10 tabs potassium chloride 10 mEq oral 10 meq PO DAILY #7 ea 07/13/24 07/24/24 07/16/24 packet Active Medications Generic Name Dose Route Start Last Admin Trade Name Freq PRN Reason Stop Dose Admin Diclofenac Sodium 2 gm 07/25/24 22:02 07/25/24 23:12 Diclofenac Sod 1% Gel 100 Gm Tube EXT 08/24/24 22:01 2 gm Q6H PRN Administration joint pain Protocol Hydromorphone HCl 0.25 mg 07/24/24 19:34 07/24/24 21:34 Hydromorphone Inj 0.5 Mg/0.5 Ml Syr IV 08/07/24 19:33 0.25 mg Q6H PRN Administration Pain Acetaminophen 1,000 mg in 100 mls @ 400 mls/hr 07/24/24 14:14 07/26/24 07:00 Ofirmev IV 07/27/24 14:13 Infused Q8H PRN Infusion Pain or Fever Potassium Chloride/Sodium Chloride 20 meq in 1,000 mls @ 75 mls/hr 07/24/24 14:15 07/26/24 10:40 Normal Saline W/20 Meq Kcl IV 07/26/24 19:34 75 mls/hr .[id number] ANNEL Administration Famotidine 20 mg in 5 mls @ 2.5 mls/min 07/24/24 15:00 07/26/24 03:53 Pepcid 20mg Iv Push IV 08/23/24 14:59 2.5 mls/min Q12H ANNEL Administration Levofloxacin/Dextrose 750 mg in 150 mls @ 100 mls/hr 07/25/24 17:00 07/25/24 20:17 Levaquin/D5w IV 08/01/24 16:59 Infused Q24H ANNEL Infusion Protocol Lorazepam 0.25 mg 07/24/24 19:34 07/25/24 23:13 Lorazepam 2 Mg/1 Ml Vial IV 08/23/24 19:33 0.25 mg Q4H PRN Administration Anxiety/Agitation Menthol 1 mason 07/26/24 03:37 07/26/24 03:57 Cough Drop (Sugar Free) Mason 24 Mason/1 Box BUCCAL 08/25/24 03:36 1 mason Q1H PRN Administration Sore Throat Ondansetron HCl 4 mg 07/24/24 12:35 07/25/24 01:13 Ondansetron Inj 2 Mg/Ml 2 Ml Vial IV 08/23/24 12:34 4 mg Q6H PRN Administration Nausea Phenol 2 sprays 07/25/24 12:19 07/25/24 14:08 Chloraseptic (Phenol) 1.4% Soln 180 Ml Btl MT 08/24/24 12:18 2 sprays Q2H PRN Administration Sore Throat/NG tube irritation (6) HTN (hypertension) Hypertension type: primary hypertension Qualified Code(s): I10 - Essential (primary) hypertension
[2024-07-26] MEDS: buPROPion SR 150 MG TABCR PO SCH (16:49)
[2024-07-26] MEDS: LIDOCAINE 5% 1 PATCH TD PRN (21:45)
[2024-07-26] MEDS: busPIRone 5 MG TAB PO SCH (21:48)
[2024-07-27] MEDS: NSS + 20MEQ KCL 20 MEQ/1,000 ML BAG IV SCH (01:10)
[2024-07-27 06:37] LABS: Hematocrit (blood only) 31.2 % (37.0-47.0); Hemoglobin 10.6 g/dl (12.0-16.0); Mean Corpuscular Hemoglobin 32.2 pg (25.0-34.0); Mean Corpuscular Volume 94.8 fL (80.0-100.0); Mean Platelet Volume 9.1 fL (9.4-12.4); Platelet Count 479 K/uL (130-400); RDW Standard Deviation 49.1 fL (36.4-46.3); Red Blood Count 3.29 M/uL (4.20-5.40); White Blood Count 4.58 K/ul (4.8-10.8)
[2024-07-27 07:20] LABS: BUN Creatinine Ratio 6.8 (10-20); Calcium 8.8 mg/dl (8.6-10.3); Creatinine Clr Calc Pharmacy 72.1 ml/min; Magnesium 1.7 mg/dl (1.7-2.4); Potassium 3.6 mmol/L (3.5-5.1)
--- NOTE | 2024-07-27 08:11 | XRay Report ---
EXAM: XR KUB/Abdomen 1 view CLINICAL HISTORY: EVAL SBO KAA/ KAB TECHNIQUE: X-ray images of the abdomen were obtained in supine and upright positions. COMPARISON: Previous study dated 07/25/2024. FINDINGS: Interval improvement of the distended small bowel, with only few air shadows, no bowel obstruction. Large bowel shows slightly increased fecal burden. No evidence of bowel obstruction or distention. No intra-abdominal free air is seen. Lumbar spine fixators are noted in situ. Few surgical gabrielle are seen. Degenerative changes of bilateral hip joints. IMPRESSION: 1. Interval improvement of the distended small bowel, with only few air shadows, no bowel obstruction. 2. Large bowel shows slightly increased fecal burden. No evidence of bowel obstruction or distention. 3. No intra-abdominal free air is seen. 4. Lumbar spine fixators are noted in situ. 5. Few surgical gabrielle are seen. 6. Degenerative changes of bilateral hip joints. Electronically signed by Leela Gaona 07-27-2024 08:11 AM
[2024-07-27] MEDS: amLODIPine BESYLATE 5 MG TAB PO SCH (09:51)
--- NOTE | 2024-07-27 11:00 | Surgery Progress Note ---
Date of Service July 27, 2024 Assessment & Plan Admission and Anticipated Discharge Date Admission Date: July 24, 2024 Subjective Adair states she feels good this am. She denies pain, N/V and continues to pass flatus. She states she had an episode of mild pain that passed when she passed flatus. Physical Exam Constitutional: + thin; not ill appearing, not in distre ss and not diaphoretic Respiratory: normal respiratory effort; no respiratory distress, no labored breathing and does not use accessory muscles Cardiovascular: Rate/Rhythm: regular rate; not tachycardic Gastrointestinal (Abdomen): Percussion/Palpation: abdomen soft; abdomen nontender, no guarding and abdomen not rigid non-distended midline incision with steri strips is healed superiorly, small opening toward the inferior aspect of the incision packed daily with 1/4" packing. Minimal serous drainage. Results & Data Vital Signs (Past 12 Hours) Vital Signs Temp Pulse Resp BP BP Pulse Ox O2 Del Method 07/27/24 08:46 82 159/81 H 07/27/24 07:48 36.5 C 81 16 127/85 97 Room Air 07/27/24 00:23 36.7 C 82 16 149/82 H 97 Room Air PG Care Time/CCT Total # of Minutes Spent Total Time Spent with Patient: Total time spent is greater than 50% in coordination of care (as documented) at patient's floor/unit and/or counseling patient: Coding Level of Care Code 30085 Post Operative Follow-Up
--- NOTE | 2024-07-27 11:48 | Hospitalist Progress Note ---
Date of Service July 27, 2024 Assessment & Plan (1) Small bowel obstruction due to postoperative adhesions: (2) Ileus: (3) Wound infection: (4) S/P exploratory laparotomy: (5) Chronic hyponatremia: (6) HTN (hypertension): Plan Ms. Ramos is a 69-year-old female with past medical history significant for hypertension, hyperlipidemia, chronic hyponatremia, SIADH per records, history of seizures per records, pituitary tumor per records anxiety/mood disorder, history of microscopic colitis who presented with abdominal pain and nausea and found to have another small bowel obstruction. s/p 07/06 small bowel resection. Patient with history of complicated surgical intervention and sent to [facility] [place] 06/24 for SBO, but ultimately with return of bowel function. Patient admitted on 07/04 and underwent resection 07/06. Patient with presentation briefly on 07/17 for abdominal pain; however, patient once more presented for pain on 07/24/2024 Patient with NGT placed for decompression with successful clamping since 07/26. Patient now advanced to clears. Ongoing discussion with Surgery and with Family about the "right" time for parental feeds--if PICC would be reasonable to assess bowel function in next few weeks,versus wait and see how bowel recovery after this event goes. #Recurrent SBO #S/p small bowel resection 07/06 #SSI Patient did agree to NG tube drainage, continue NG tube -NGT on clamp trial, doing well thus far Levofloxacin for Klebsiella surgical infection Continue to monitor electrolytes and renal function Continue to monitor for resumes and of bowel function Discussion with Surgery and family about pursuing TPN Surgery following, appreciate recommendations and NG management Consult to dog show judge for nutritional concerns Continue IVF Resuming home meds as tolerated DVT ambulate/scds Dispo 1-2 days contingent on recovery/nutrition intake Admission and Anticipated Discharge Date Admission Date: July 24, 2024 Subjective NAEO Reports anxiety given concerns about "if" the obstruction returns; spoke with daughter, , and patient at bedside about plans to assess optimal timing for TPN if warranted and to assess surgical opinions on this idea as there are risks to starting such therapy Family was very understanding, and will reconvene about thoughts on this option Patient reports flatus and small bowel movements, no abdominal pain at this time Physical Exam Constitutional: WD/WN, vitals as above Respiratory: normal respiratory effort, lungs clear to auscultation Cardiovascular: RRR, no murmur, no edema Gastrointestinal (Abdomen): normal bowel sounds, soft, nontender, no hepatosplenomegaly well healing/approximated superior surgical incision, no surrounding eythema Inferior incision with dressing in place, some drainage strike through, however, area nontender Results & Data Results & Data Vital Signs (Past 12 Hours) Vital Signs Temp Pulse Resp BP BP Pulse Ox O2 Del Method 07/27/24 08:46 82 159/81 H 07/27/24 07:48 36.5 C 81 16 127/85 97 Room Air 07/27/24 00:23 36.7 C 82 16 149/82 H 97 Room Air Laboratory Results Short CBC 07/27/24 Range/Units 06:03 WBC 4.58 L (4.8-10.8) K/ul Hgb 10.6 L (12.0-16.0) g/dl Hct 31.2 L (37.0-47.0) % Plt Count 479 H (130-400) K/uL BMP 07/27/24 06:03 Sodium 133 L Potassium 3.6 Chloride 99 Carbon Dioxide 24 BUN 4 L Creatinine 0.59 L Glucose 111 H Calcium 8.8 Medications Administered Home Medications Medication Instructions Recorded Confirmed Last Taken amlodipine 5 mg tablet 5 mg PO DAILY 07/04/24 07/24/24 07/16/24 atorvastatin 20 mg tablet 20 mg PO DAILY 07/04/24 07/24/24 07/16/24 azelastine 137 mcg (0.1 %) nasal 1 spray intranasal BID PRN Allergy 07/04/24 07/24/24 Unknown spray Symptoms bupropion HCl 150 mg tablet,12 hr 150 mg PO QAM 07/04/24 07/24/24 07/16/24 sustained-release buspirone 10 mg tablet 10 mg PO TID 07/04/24 07/24/24 07/16/24 cholecalciferol (vitamin D3) 25 25 mcg PO DAILY 07/04/24 07/24/24 07/16/24 mcg (1,000 unit) tablet (Vitamin D3) coenzyme Q10 100 mg capsule 200 mg PO DAILY 07/04/24 07/24/24 07/16/24 (CoQ-10) cyanocobalamin (vitamin B-12) 1,000 mcg PO DAILY 07/04/24 07/24/2424 1,000 mcg tablet cyclosporine 0.05 % eye drops in a 1 drp ophthalmic (eye) Q12H 07/04/24 07/24/24 07/16/24 dropperette (Restasis) glucosamine sulf dipot 1 cap PO DAILY 07/04/24 07/24/24 07/16/24 chlr,msm,chond 550 mg-C 30 mg-sandra 1 mg capsule (Glucosamine Chondroitin) lisinopril 40 mg tablet 40 mg PO DAILY 07/04/24 07/24/24 07/16/24 lorazepam 0.5 mg tablet (Ativan) 0.5 mg PO HS PRN Anxiety 07/04/24 07/24/24 Unknown omega 8-hww-pki-fish oil 1,000 mg 1 cap PO DAILY 07/04/24 07/24/24 07/16/24 (120 mg-180 mg) capsule (Fish Oil) polyethylene glycol 3350 17 gram 17 g PO DAILY 07/04/24 07/24/24 Unknown oral powder packet (Miralax) vitamins A,C,P-vsfn-ouiylx 2,148 1 tab PO BID 07/04/24 07/24/24 07/16/24 mcg-113 mg-45 mg-17.4 mg tablet (PreserVision AREDS) Bifidobacterium infantis 10.5 mg 10 mg (0.9524 x 10.5 mg (10 07/13/24 07/24/24 07/16/24 (10 million cell) chewable tablet million cell)) PO DAILY #30 tabs (Align) ciprofloxacin HCl 750 mg tablet 750 mg PO Q12H 12 days #24 tabs 07/13/24 07/24/24 07/16/24 magnesium chloride 71.5 mg 71.5 mg PO DAILY #30 tabs 07/13/24 07/24/24 07/16/24 (magnesium chloride) tablet,delayed release (Slow-Mag) oxycodone 5 mg tablet 5 - 10 mg (1 - 2 x 5 mg) PO 07/13/24 07/24/24 Unknown .[id number] PRN pain, for initial therapy, max 6 tabs per day #10 tabs potassium chloride 10 mEq oral 10 meq PO DAILY #7 ea 07/13/24 07/24/24 07/16/24 packet Active Medications Generic Name Dose Route Start Last Admin Trade Name Freq PRN Reason Stop Dose Admin Amlodipine Besylate 5 mg 07/27/24 09:00 07/27/24 09:51 Amlodipine Besylate 5 Mg Tab PO 08/26/24 08:59 5 mg DAILY ANNEL Administration Bupropion HCl 150 mg 07/26/24 15:30 07/27/24 09:06 Bupropion Sr 150 Mg Tabcr PO 08/25/24 15:29 150 mg QAM ANNEL Administration Buspirone HCl 10 mg 07/26/24 21:00 07/27/24 09:06 Buspirone 5 Mg Tab PO 08/25/24 20:59 10 mg TID ANNLE Administration Diclofenac Sodium 2 gm 07/25/24 22:02 07/26/24 18:19 Diclofenac Sod 1% Gel 100 Gm Tube EXT 08/24/24 22:01 2 gm Q6H PRN Administration joint pain Protocol Hydromorphone HCl 0.25 mg 07/24/24 19:34 07/24/24 21:34 Hydromorphone Inj 0.5 Mg/0.5 Ml Syr IV 08/07/24 19:33 0.25 mg Q6H PRN Administration Pain Acetaminophen 1,000 mg in 100 mls @ 400 mls/hr 07/24/24 14:14 07/27/24 04:24 Ofirmev IV 07/27/24 14:13 Infused Q8H PRN Infusion Pain or Fever Famotidine 20 mg in 5 mls @ 2.5 mls/min 07/24/24 15:00 07/27/24 04:02 Pepcid 20mg Iv Push IV 08/23/24 14:59 2.5 mls/min Q12H ANNEL Administration Levofloxacin/Dextrose 750 mg in 150 mls @ 100 mls/hr 07/25/24 17:00 07/26/24 18:21 Levaquin/D5w IV 08/01/24 16:59 Infused Q24H ANNEL Infusion Protocol Potassium Chloride/Sodium Chloride 20 meq in 1,000 mls @ 75 mls/hr 07/27/24 00:45 07/27/24 01:10 Normal Saline W/20 Meq Kcl IV 07/27/24 14:04 75 mls/hr .[id number] ANNEL Administration Lidocaine 1 patch 07/26/24 20:21 07/26/24 21:45 Lidocaine 5% 1 Patch TD 08/26/24 08:59 1 patch DAILY PRN Administration BACK PAIN Lorazepam 0.25 mg 07/24/24 19:34 07/26/24 21:55 Lorazepam 2 Mg/1 Ml Vial IV 08/23/24 19:33 0.25 mg Q4H PRN Administration Anxiety/Agitation Menthol 1 mason 07/26/24 03:37 07/26/24 03:57 Cough Drop (Sugar Free) Mason 24 Mason/1 Box BUCCAL 08/25/24 03:36 1 mason Q1H PRN Administration Sore Throat Miscellaneous 1 each 07/26/24 21:00 07/26/24 21:47 Remove Lidoderm Patch N/A 08/25/24 20:59 1 each DAILY@2100 ANNEL Administration Ondansetron HCl 4 mg 07/24/24 12:35 07/25/24 01:13 Ondansetron Inj 2 Mg/Ml 2 Ml Vial IV 08/23/24 12:34 4 mg Q6H PRN Administration Nausea Phenol 2 sprays 07/25/24 12:19 07/25/24 14:08 Chloraseptic (Phenol) 1.4% Soln 180 Ml Btl MT 08/24/24 12:18 2 sprays Q2H PRN Administration Sore Throat/NG tube irritation (6) HTN (hypertension) Hypertension type: primary hypertension Qualified Code(s): I10 - Essential (primary) hypertension
[2024-07-27] MEDS ORDERED: SODIUM PHOSPHATE 3 MMOL/1 ML INFUSION IV STA (12:21)
[2024-07-27] MEDS: SODIUM PHOSPHATE 24 MMOL in SODIUM CHLORIDE 0.9% 500 ML IV ONE (13:01)
[2024-07-27] MEDS ORDERED: ACETAMINOPHEN 1,000 MG/100 ML VIAL IV PRN (17:36)
[2024-07-27] MEDS: ACETAMINOPHEN 1,000 MG/100 ML VIAL IV STA (17:53)
--- NOTE | 2024-07-27 21:54 | Electrocardiogram Report ---
Test Reason : Blood Pressure : */* mmHG Vent. Rate : 73 BPM Atrial Rate : 73 BPM P-R Int : 152 ms QRS Dur : 82 ms QT Int : 376 ms P-R-T Axes : 28 6 36 degrees QTcB Int : 414 ms Normal sinus rhythm Normal ECG When compared with ECG of 24-Jul-2024 23:20, No significant change Confirmed by Sathya Mckeon ([id number]) on 07/27/2024 9:53:50 PM Referred By: Shaan Willoughby Confirmed By: Sathya Mckeon
[2024-07-27] MEDS ORDERED: Nursing to Pharmacy Communication SCH (22:15)
[2024-07-28 08:17] LABS: BUN Creatinine Ratio 3.2 (10-20); Calcium 8.3 mg/dl (8.6-10.3); Creatinine Clr Calc Pharmacy 68.6 ml/min; Magnesium 1.5 mg/dl (1.7-2.4); Phosphorus 2.9 mg/dl (2.5-4.9); Potassium 3.2 mmol/L (3.5-5.1)
[2024-07-28] MEDS: lisinopril 40 MG TAB PO SCH (08:27)
[2024-07-28 08:32] LABS: Hematocrit (blood only) 31.2 % (37.0-47.0); Hemoglobin 10.5 g/dl (12.0-16.0); Mean Corpuscular Hemoglobin 31.8 pg (25.0-34.0); Mean Corpuscular Hgb Conc 33.7 g/dL (32.0-36.0); Mean Corpuscular Volume 94.5 fL (80.0-100.0); Mean Platelet Volume 9.5 fL (9.4-12.4); Platelet Count 429 K/uL (130-400); RDW Coefficient of Variation 14.2 % (11.5-14.5); RDW Standard Deviation 50.1 fL (36.4-46.3); White Blood Count 3.25 K/ul (4.8-10.8)
[2024-07-28] MEDS: ACETAMINOPHEN 500 MG TAB PO PRN (08:41)
[2024-07-28] MEDS: POTASSIUM CHLORIDE CRTAB 20 MEQ TABCR PO SCH (08:41)
[2024-07-28] MEDS: MAGNESIUM SULFATE / D5W 1 GM/100 ML BAG IV SCH (08:42)
--- NOTE | 2024-07-28 09:03 | Surgery Progress Note ---
Date of Service July 28, 2024 Assessment & Plan (1) Small bowel obstruction due to postoperative adhesions: Plan: clinically and radiographically improving will d/c ngt. advance to fulls Admission and Anticipated Discharge Date Admission Date: July 24, 2024 Subjective pt seen. feeling well. no nausea. elijah clears Physical Exam Physical Exam: alert. nad abd: soft. nt. dressing c/d/i Results & Data Vital Signs (Past 12 Hours) Vital Signs Temp Pulse Resp BP Pulse Ox O2 Del Method 07/28/24 07:27 36.5 C 90 16 122/85 100 Room Air PG Care Time/CCT Total # of Minutes Spent Total Time Spent with Patient: Total time spent is greater than 50% in coordination of care (as documented) at patient's floor/unit and/or counseling patient: Coding Level of Care Code 70274 Post Operative Follow-Up Diagnoses Small bowel obstruction due to postoperative adhesions K91.30
[2024-07-28 09:49] LABS: Basophils # (auto) 0.05 K/uL (0.00-0.20); Basophils % (auto) 1.5 %; Eosinophils # (auto) 0.07 K/uL (0.00-0.50); Eosinophils % (auto) 2.1 %; Folate (Folic Acid),Ser orPlas 14.6 ng/ml (>5.38); Immature Granulocytes # (auto) 0.01 K/uL (0.01-0.20); Immature Granulocytes % (auto) 0.3 %; Lymphocytes % (auto) 33.3 %; Monocytes # (auto) 0.48 K/uL (0.11-0.59); Monocytes % (auto) 14.5 %; Neutrophils # (auto) 1.59 K/uL (1.40-6.50); Neutrophils % (auto) 48.3 %
--- NOTE | 2024-07-28 13:16 | Hospitalist Progress Note ---
Date of Service July 28, 2024 Assessment & Plan (1) Small bowel obstruction due to postoperative adhesions: (2) Ileus: (3) Wound infection: (4) S/P exploratory laparotomy: (5) Chronic hyponatremia: (6) HTN (hypertension): Plan Ms. Ramos is a 69-year-old female with past medical history significant for hypertension, hyperlipidemia, chronic hyponatremia, SIADH per records, history of seizures per records, pituitary tumor per records anxiety/mood disorder, history of microscopic colitis who presented with abdominal pain and nausea and found to have another small bowel obstruction. s/p 07/06 small bowel resection. Patient with history of complicated surgical intervention and [place] [facility] [place], but ultimately with return of bowel function. Patient admitted on 07/04 and underwent resection 07/06. Patient with presentation briefly on 07/17 for abdominal pain; however, patient once more presented for pain on 07/24/2024. Patient found to have recurrent SBO. Patient with NGT placed for decompression with successful clamping since 07/26 and ultimately removed this morning after successful transition to clears. Discussion with surgery about PPN, however will defer and continue to encourage PO intake as able Planned discussion with Ghost Writer Repeat labs to monitor lytes #Recurrent SBO #S/p small bowel resection 07/06 #SSI Patient did agree to NG tube drainage, continue NG tube -NGT on clamp trial, doing well thus far Levofloxacin for Klebsiella surgical infection Completed 14 days of abx Continue to monitor electrolytes and renal function Replace PO as able Repeat labs this afternoon Discussion with Surgery and family about pursuing TPN Will avoid at this time and encourage po Surgery following, appreciate recommendations and NG management Remove NG today Consult to reverser for nutritional concerns Discontinue IVF, encourage PO Diet advanced to full liquids Resuming home meds as tolerated DVT ambulate/scds Will dispo to home contingent on electrolytes Admission and Anticipated Discharge Date Admission Date: July 24, 2024 Subjective NAEo Denies any abdominal pain, endorsing flatus and bowel movements last evening Denies any nausea or vomiting Reports concerns over diet moving forward--eager to speak to sports nutritionist Physical Exam Constitutional: WD/WN, vitals as above Respiratory: normal respiratory effort, lungs clear to auscultation Cardiovascular: RRR, no murmur, no edema Gastrointestinal (Abdomen): normal bowel sounds, soft, nontender, no hepatosplenomegaly well healing surgical site Results & Data Results & Data Vital Signs (Past 12 Hours) Vital Signs Temp Pulse Resp BP Pulse Ox O2 Del Method 07/28/24 07:27 36.5 C 90 16 122/85 100 Room Air Laboratory Results Short CBC 07/28/24 Range/Units 07:31 WBC 3.25 L (4.8-10.8) K/ul Hgb 10.5 L (12.0-16.0) g/dl Hct 31.2 L (37.0-47.0) % Plt Count 429 H (130-400) K/uL BMP 07/28/24 07:31 Sodium 133 L Potassium 3.2 L Chloride 99 Carbon Dioxide 27 BUN 2 L Creatinine 0.62 Glucose 110 H Calcium 8.3 L Medications Administered Home Medications Medication Instructions Recorded Confirmed Last Taken amlodipine 5 mg tablet 5 mg PO DAILY 07/04/24 07/24/24 07/16/24 atorvastatin 20 mg tablet 20 mg PO DAILY 07/04/24 07/24/24 07/16/24 azelastine 137 mcg (0.1 %) nasal 1 spray intranasal BID PRN Allergy 07/04/24 07/24/24 Unknown spray Symptoms bupropion HCl 150 mg tablet,12 hr 150 mg PO QAM 07/04/24 07/24/24 07/16/24 sustained-release buspirone 10 mg tablet 10 mg PO TID 07/04/24 07/24/24 07/16/24 cholecalciferol (vitamin D3) 25 25 mcg PO DAILY 07/04/24 07/24/24 07/16/24 mcg (1,000 unit) tablet (Vitamin D3) coenzyme Q10 100 mg capsule 200 mg PO DAILY 07/04/24 07/24/24 07/16/24 (CoQ-10) cyanocobalamin (vitamin B-12) 1,000 mcg PO DAILY 07/04/24 07/24/24 07/16/24 1,000 mcg tablet cyclosporine 0.05 % eye drops in a 1 drp ophthalmic (eye) Q12H 07/04/24 07/24/24 07/16/24 dropperette (Restasis) glucosamine sulf dipot 1 cap PO DAILY 07/04/24 07/24/24 07/16/24 chlr,msm,chond 550 mg-C 30 mg-sandra 1 mg capsule (Glucosamine Chondroitin) lisinopril 40 mg tablet 40 mg PO DAILY 07/04/24 07/24/24 07/16/24 lorazepam 0.5 mg tablet (Ativan) 0.5 mg PO HS PRN Anxiety 07/04/24 07/24/24 Unknown omega 9-ego-cns-fish oil 1,000 mg 1 cap PO DAILY 07/04/24 07/24/24 07/16/24 (120 mg-180 mg) capsule (Fish Oil) polyethylene glycol 3350 17 gram 17 g PO DAILY 07/04/24 07/24/24 Unknown oral powder packet (Miralax) vitamins A,C,D-lnjt-mlzklp 2,148 1 tab PO BID 07/04/24 07/24/24 07/16/24 mcg-113 mg-45 mg-17.4 mg tablet (PreserVision AREDS) Bifidobacterium infantis 10.5 mg 10 mg (0.9524 x 10.5 mg (10 07/13/24 07/24/24 07/16/24 (10 million cell) chewable tablet million cell)) PO DAILY #30 tabs (Align) ciprofloxacin HCl 750 mg tablet 750 mg PO Q12H 12 days #24 tabs 07/13/24 07/24/24 07/16/24 magnesium chloride 71.5 mg 71.5 mg PO DAILY #30 tabs 07/13/24 07/24/24 07/16/24 (magnesium chloride) tablet,delayed release (Slow-Mag) oxycodone 5 mg tablet 5 - 10 mg (1 - 2 x 5 mg) PO 07/13/24 07/24/24 Unknown .[id number] PRN pain, for initial therapy, max 6 tabs per day #10 tabs potassium chloride 10 mEq oral 10 meq PO DAILY #7 ea 07/13/24 07/24/24 07/16/24 packet Active Medications Generic Name Dose Route Start Last Admin Trade Name Freq PRN Reason Stop Dose Admin Acetaminophen 1,000 mg 07/28/24 08:33 07/28/24 08:41 Acetaminophen 500 Mg Tab PO 08/27/24 08:44 1,000 mg Q8H PRN Administration wheezing Amlodipine Besylate 5 mg 07/27/24 09:00 07/28/24 08:28 Amlodipine Besylate 5 Mg Tab PO 08/26/24 08:59 5 mg DAILY ANNEL Administration Bupropion HCl 150 mg 07/26/24 15:30 07/28/24 08:28 Bupropion Sr 150 Mg Tabcr PO 08/25/24 15:29 150 mg QAM ANNEL Administration Buspirone HCl 10 mg 07/26/24 21:00 07/28/24 08:28 Buspirone 5 Mg Tab PO 08/25/24 20:59 10 mg TID ANNEL Administration Diclofenac Sodium 2 gm 07/25/24 22:02 07/26/24 18:19 Diclofenac Sod 1% Gel 100 Gm Tube EXT 08/24/24 22:01 2 gm Q6H PRN Administration joint pain Protocol Hydromorphone HCl 0.25 mg 07/24/24 19:34 07/24/24 21:34 Hydromorphone Inj 0.5 Mg/0.5 Ml Syr IV 08/07/24 19:33 0.25 mg Q6H PRN Administration Pain Famotidine 20 mg in 5 mls @ 2.5 mls/min 07/24/24 15:00 07/28/24 02:57 Pepcid 20mg Iv Push IV 08/23/24 14:59 2.5 mls/min Q12H ANNEL Administration Lidocaine 1 patch 07/26/24 20:21 07/26/24 21:45 Lidocaine 5% 1 Patch TD 08/26/24 08:59 1 patch DAILY PRN Administration BACK PAIN Lisinopril 40 mg 07/28/24 09:00 07/28/24 08:27 Lisinopril 40 Mg Tab PO 08/27/24 08:59 40 mg DAILY ANNEL Administration Lorazepam 0.25 mg 07/24/24 19:34 07/27/24 19:38 Lorazepam 2 Mg/1 Ml Vial IV 08/23/24 19:33 0.25 mg Q4H PRN Administration Anxiety/Agitation Menthol 1 mason 07/26/24 03:37 07/26/24 03:57 Cough Drop (Sugar Free) Mason 24 Mason/1 Box BUCCAL 08/25/24 03:36 1 mason Q1H PRN Administration Sore Throat Miscellaneous 1 each 07/26/24 21:00 07/27/24 20:04 Remove Lidoderm Patch N/A 08/25/24 20:59 1 each DAILY@2100 ANNEL Administration Ondansetron HCl 4 mg 07/24/24 12:35 07/25/24 01:13 Ondansetron Inj 2 Mg/Ml 2 Ml Vial IV 08/23/24 12:34 4 mg Q6H PRN Administration Nausea Phenol 2 sprays 07/25/24 12:19 07/25/24 14:08 Chloraseptic (Phenol) 1.4% Soln 180 Ml Btl MT 08/24/24 12:18 2 sprays Q2H PRN Administration Sore Throat/NG tube irritation Potassium Chloride 20 meq 07/28/24 09:00 07/28/24 08:41 Potassium Chloride Crtab 20 Meq Tabcr PO 08/27/24 08:59 20 meq TID ANNEL Administration (6) HTN (hypertension) Hypertension type: primary hypertension Qualified Code(s): I10 - Essential (primary) hypertension
[2024-07-28 16:13] LABS: BUN Creatinine Ratio 4.7 (10-20); Calcium 8.2 mg/dl (8.6-10.3); Creatinine Clr Calc Pharmacy 66.5 ml/min; Magnesium 2.1 mg/dl (1.7-2.4); Phosphorus 2.7 mg/dl (2.5-4.9); Potassium 3.3 mmol/L (3.5-5.1)
[2024-07-28] MEDS: POLYETHYLENE (MIRALAX) 17 GM PACK PO STA (17:54)
--- NOTE | 2024-07-29 05:45 | Surgery Progress Note ---
Date of Service July 29, 2024 Assessment & Plan (1) Small bowel obstruction due to postoperative adhesions: Plan: Status post exploratory laparotomy with small bowel resection on 07/06/2024. Patient now admitted with small bowel obstruction versus ileus. Provide analgesics and antiemetics if needed Patient is tolerating full liquid diet. Consideration may be given to advancing the solids if she continues to do well clinically Check a.m. labs unavailable Continue to encourage mobilization/ambulation as above. doing great. +bowel fx. elijah diet. no pain or nausea d/c planning Admission and Anticipated Discharge Date Admission Date: July 24, 2024 Subjective Patient is resting comfortably in bed. She notes that she has tolerated full liquids without worsening abdominal pain. She has also not had any nausea or vomiting with full liquids. She denies any fevers, shakes, or chills. She denies shortness of breath. She is urinating without difficulty. She notes that she has been ambulating in the hallway independently and without difficulty Physical Exam Gastrointestinal (Abdomen): Abdomen is soft nondistended. There is no pain with palpation. Patient's incision appears to be healing well with 1 small open area at the inferior portion of her incision. Results & Data Vital Signs (Past 12 Hours) Vital Signs Temp Pulse Resp BP Pulse Ox O2 Del Method 07/28/24 21:09 36.9 C 80 16 121/66 98 Room Air PG Care Time/CCT Total # of Minutes Spent Total Time Spent with Patient: Total time spent is greater than 50% in coordination of care (as documented) at patient's floor/unit and/or counseling patient: Coding Level of Care Code 96060 Post Operative Follow-Up Diagnoses Small bowel obstruction due to postoperative adhesions K91.30
[2024-07-29 06:48] LABS: Hematocrit (blood only) 29.8 % (37.0-47.0); Hemoglobin 10.1 g/dl (12.0-16.0); Mean Corpuscular Hemoglobin 32.4 pg (25.0-34.0); Mean Corpuscular Hgb Conc 33.9 g/dL (32.0-36.0); Mean Corpuscular Volume 95.5 fL (80.0-100.0); Mean Platelet Volume 9.4 fL (9.4-12.4); Platelet Count 356 K/uL (130-400); RDW Coefficient of Variation 14.4 % (11.5-14.5); RDW Standard Deviation 50.5 fL (36.4-46.3); Red Blood Count 3.12 M/uL (4.20-5.40); White Blood Count 3.36 K/ul (4.8-10.8)
[2024-07-29 07:05] LABS: BUN Creatinine Ratio 3.3 (10-20); Calcium 8.4 mg/dl (8.6-10.3); Creatinine Clr Calc Pharmacy 70.9 ml/min; Magnesium 1.9 mg/dl (1.7-2.4); Phosphorus 2.5 mg/dl (2.5-4.9); Potassium 3.8 mmol/L (3.5-5.1)
[2024-07-29] MEDS: POLYETHYLENE (MIRALAX) 17 GM PACK PO SCH (09:06)
--- NOTE | 2024-07-29 10:36 | Hospitalist Progress Note ---
Date of Service July 29, 2024 Assessment & Plan (1) Small bowel obstruction due to postoperative adhesions: (2) Ileus: (3) Wound infection: (4) S/P exploratory laparotomy: (5) Chronic hyponatremia: (6) HTN (hypertension): Plan Ms. Ramos is a 69-year-old female with past medical history significant for hypertension, hyperlipidemia, chronic hyponatremia, SIADH per records, history of seizures per records, pituitary tumor per records anxiety/mood disorder, history of microscopic colitis who presented with abdominal pain and nausea and found to have another small bowel obstruction. s/p 07/06 small bowel resection. Patient with history of complicated surgical intervention and sent to [facility] [place] for SBO, but ultimately with return of bowel function. Patient admitted on 07/04 and underwent resection 07/06. Patient with presentation briefly on 07/17 for abdominal pain; however, patient once more presented for pain on 07/24/2024. Patient found to have recurrent SBO. Patient with NGT placed for decompression with successful clamping since 07/26 and ultimately 07/28 after successful transition to clears. Diet further advanced today. Discussion with surgery about PPN, however will defer and continue to encourage PO intake as able Planned discussion with Child Nutrition Director: patient reports that she learned a tremendous amount and working on a diet plan. Lytes stable today, diet advancing possible dispo Wednesday v Wednesday #Recurrent SBO #S/p small bowel resection 07/06 #SSI Patient did agree to NG tube drainage, continue NG tube -NGT on clamp trial, doing well thus far Levofloxacin for Klebsiella surgical infection Completed 14 days of abx Continue to monitor electrolytes and renal function Replace PO as able Discussion with Surgery and family about pursuing TPN Will avoid at this time and encourage po Surgery following, appreciate recommendations and NG management Removed NG 07/28 Consult to weights and measures inspector for nutritional concerns Discontinue IVF, encourage PO Diet advanced to soft/low fiber Resuming home meds as tolerated DVT ambulate/scds Will dispo to home contingent on electrolytes Admission and Anticipated Discharge Date Admission Date: July 24, 2024 Subjective NAEo Reports eating well and passing stool day prior Denies any current concerns outside of worry about dietary changes; reassurance provided Physical Exam Constitutional: WD/WN, vitals as above Cardiovascular: RRR, no murmur, no edema Gastrointestinal (Abdomen): normal bowel sounds, soft, nontender, no hepatosplenomegaly Results & Data Results & Data Vital Signs (Past 12 Hours) Vital Signs Temp Pulse Resp BP BP Pulse Ox O2 Del Method 07/29/24 09:00 81 20 123/81 95 Room Air 07/29/24 07:25 36.7 C 81 16 136/83 100 Room Air Laboratory Results Short CBC 07/29/24 Range/Units 06:11 WBC 3.36 L (4.8-10.8) K/ul Hgb 10.1 L (12.0-16.0) g/dl Hct 29.8 L (37.0-47.0) % Plt Count 356 (130-400) K/uL BMP 07/28/24 07/29/24 15:29 06:11 Sodium 130 L 133 L Potassium 3.3 L 3.8 Chloride 97 L 101 Carbon Dioxide 26 26 BUN 3 L 2 L Creatinine 0.64 0.60 Glucose 124 H 92 Calcium 8.2 L 8.4 L Medications Administered Home Medications Medication Instructions Recorded Confirmed Last Taken amlodipine 5 mg tablet 5 mg PO DAILY 07/04/24 07/24/24 07/16/24 atorvastatin 20 mg tablet 20 mg PO DAILY 07/04/24 07/24/24 07/16/24 azelastine 137 mcg (0.1 %) nasal 1 spray intranasal BID PRN Allergy 07/04/24 07/24/24 Unknown spray Symptoms bupropion HCl 150 mg tablet,12 hr 150 mg PO QAM 07/04/24 07/24/24 07/16/24 sustained-release buspirone 10 mg tablet 10 mg PO TID 07/04/24 07/24/24 07/16/24 cholecalciferol (vitamin D3) 25 25 mcg PO DAILY 07/04/24 07/24/24 07/16/24 mcg (1,000 unit) tablet (Vitamin D3) coenzyme Q10 100 mg capsule 200 mg PO DAILY 07/04/24 07/24/24 07/16/24 (CoQ-10) cyanocobalamin (vitamin B-12) 1,000 mcg PO DAILY 07/04/24 07/24/24 07/16/24 1,000 mcg tablet cyclosporine 0.05 % eye drops in a 1 drp ophthalmic (eye) Q12H 07/04/24 07/24/24 07/16/24 dropperette (Restasis) glucosamine sulf dipot 1 cap PO DAILY 07/04/24 07/24/24 07/16/24 chlr,msm,chond 550 mg-C 30 mg-sandra 1 mg capsule (Glucosamine Chondroitin) lisinopril 40 mg tablet 40 mg PO DAILY 07/04/24 07/24/24 07/16/24 lorazepam 0.5 mg tablet (Ativan) 0.5 mg PO HS PRN Anxiety 07/04/24 07/24/24 Unknown omega 6-hoi-hqt-fish oil 1,000 mg 1 cap PO DAILY 07/04/24 07/24/24 07/16/24 (120 mg-180 mg) capsule (Fish Oil) polyethylene glycol 3350 17 gram 17 g PO DAILY 07/04/24 07/24/24 Unknown oral powder packet (Miralax) vitamins A,C,W-vvzx-fiizag 2,148 1 tab PO BID 07/04/24 07/24/24 07/16/24 mcg-113 mg-45 mg-17.4 mg tablet (PreserVision AREDS) Bifidobacterium infantis 10.5 mg 10 mg (0.9524 x 10.5 mg (10 07/13/24 07/24/24 07/16/24 (10 million cell) chewable tablet million cell)) PO DAILY #30 tabs (Align) ciprofloxacin HCl 750 mg tablet 750 mg PO Q12H 12 days #24 tabs 07/13/24 07/24/24 07/16/24 magnesium chloride 71.5 mg 71.5 mg PO DAILY #30 tabs 07/13/24 07/24/24 07/16/24 (magnesium chloride) tablet,delayed release (Slow-Mag) oxycodone 5 mg tablet 5 - 10 mg (1 - 2 x 5 mg) PO 07/13/24 07/24/24 Unknown .[id number] PRN pain, for initial therapy, max 6 tabs per day #10 tabs potassium chloride 10 mEq oral 10 meq PO DAILY #7 ea 07/13/24 07/24/24 07/16/24 packet Active Medications Generic Name Dose Route Start Last Admin Trade Name Freq PRN Reason Stop Dose Admin Acetaminophen 1,000 mg 07/28/24 08:33 07/28/24 08:41 Acetaminophen 500 Mg Tab PO 08/27/24 08:44 1,000 mg Q8H PRN Administration wheezing Amlodipine Besylate 5 mg 07/27/24 09:00 07/29/24 09:07 Amlodipine Besylate 5 Mg Tab PO 08/26/24 08:59 5 mg DAILY ANNEL Administration Bupropion HCl 150 mg 07/26/24 15:30 07/29/24 09:06 Bupropion Sr 150 Mg Tabcr PO 08/25/24 15:29 150 mg QAM ANNEL Administration Buspirone HCl 10 mg 07/26/24 21:00 07/29/24 09:06 Buspirone 5 Mg Tab PO 08/25/24 20:59 10 mg TID ANNEL Administration Diclofenac Sodium 2 gm 07/25/24 22:02 07/26/24 18:19 Diclofenac Sod 1% Gel 100 Gm Tube EXT 08/24/24 22:01 2 gm Q6H PRN Administration joint pain Protocol Hydromorphone HCl 0.25 mg 07/24/24 19:34 07/24/24 21:34 Hydromorphone Inj 0.5 Mg/0.5 Ml Syr IV 08/07/24 19:33 0.25 mg Q6H PRN Administration Pain Famotidine 20 mg in 5 mls @ 2.5 mls/min 07/24/24 15:00 07/29/24 02:22 Pepcid 20mg Iv Push IV 08/23/24 14:59 2.5 mls/min Q12H ANNEL Administration Lidocaine 1 patch 07/26/24 20:21 07/26/24 21:45 Lidocaine 5% 1 Patch TD 08/26/24 08:59 1 patch DAILY PRN Administration BACK PAIN Lisinopril 40 mg 07/28/24 09:00 07/29/24 09:07 Lisinopril 40 Mg Tab PO 08/27/24 08:59 40 mg DAILY ANNEL Administration Lorazepam 0.25 mg 07/24/24 19:34 07/28/24 20:22 Lorazepam 2 Mg/1 Ml Vial IV 08/23/24 19:33 0.25 mg Q4H PRN Administration Anxiety/Agitation Menthol 1 mason 07/26/24 03:37 07/26/24 03:57 Cough Drop (Sugar Free) Mason 24 Mason/1 Box BUCCAL 08/25/24 03:36 1 mason Q1H PRN Administration Sore Throat Miscellaneous 1 each 07/26/24 21:00 07/28/24 20:12 Remove Lidoderm Patch N/A 08/25/24 20:59 Not Given DAILY@2100 ANNEL Ondansetron HCl 4 mg 07/24/24 12:35 07/25/24 01:13 Ondansetron Inj 2 Mg/Ml 2 Ml Vial IV 08/23/24 12:34 4 mg Q6H PRN Administration Nausea Phenol 2 sprays 07/25/24 12:19 07/25/24 14:08 Chloraseptic (Phenol) 1.4% Soln 180 Ml Btl MT 08/24/24 12:18 2 sprays Q2H PRN Administration Sore Throat/NG tube irritation Polyethylene Glycol 17 gm 07/29/24 09:00 07/29/24 09:06 Polyethylene (Miralax) 17 Gm Pack PO 08/28/24 08:59 17 gm DAILY ANNEL Administration Potassium Chloride 20 meq 07/28/24 09:00 07/29/24 09:06 Potassium Chloride Crtab 20 Meq Tabcr PO 08/27/24 08:59 20 meq TID ANNEL Administration (6) HTN (hypertension) Hypertension type: primary hypertension Qualified Code(s): I10 - Essential (primary) hypertension
[2024-07-30 07:39] VITALS: TEMP 98.4
[2024-07-30 09:05] VITALS: BP 123/74; PULSE 61; RESP 18; O2SAT 97
[2024-07-30 09:32] LABS: BUN Creatinine Ratio 9.3 (10-20); Calcium 8.8 mg/dl (8.6-10.3); Creatinine Clr Calc Pharmacy 78.8 ml/min; Magnesium 1.7 mg/dl (1.7-2.4); Phosphorus 3.3 mg/dl (2.5-4.9); Potassium 4.2 mmol/L (3.5-5.1)
--- NOTE | 2024-07-30 12:40 | Discharge Summary ---
Discharge Summary Date of Service July 30, 2024 Principal Dx & Hospital Course #1 = Principal Diagnosis (1) Small bowel obstruction due to postoperative adhesions: (2) Ileus: (3) Wound infection: (4) S/P exploratory laparotomy: (5) Chronic hyponatremia: (6) HTN (hypertension): Plan Ms. Ramos is a 69-year-old female with past medical history significant for hypertension, hyperlipidemia, chronic hyponatremia, SIADH per records, history of seizures per records, pituitary tumor per records anxiety/mood disorder, history of microscopic colitis who presented with abdominal pain and nausea and found to have another small bowel obstruction. s/p 07/06 small bowel resection. Patient with history of complicated surgical intervention and [place] [facility] [place], but ultimately with return of bowel function. Patient admitted on 07/04 and underwent resection 07/06. Patient with presentation briefly on 07/17 for abdominal pain; however, patient once more presented for pain on 07/24/2024. Patient found to have recurrent SBO. Patient with NGT placed for decompression with successful clamping since 07/26 and ultimately 07/28 after successful transition to clears. Diet further advanced today. Discussion with surgery about PPN, however will defer and continue to encourage PO intake as able Planned discussion with [employer]: patient reports that she learned a tremendous amount and working on a diet plan. On day of discharge, patient tolerating low fiber diet, ambulating without difficult, passing stool and denying any pain. #Recurrent SBO #S/p small bowel resection 07/06 #SSI Patient did agree to NG tube drainage, continue NG tube -NGT on clamp trial, doing well thus far Levofloxacin for Klebsiella surgical infection Completed 14 days of abx Continue to monitor electrolytes and renal function Replace PO as able Discussion with Surgery and family about pursuing TPN Will avoid at this time and encourage po Surgery following, appreciate recommendations and NG management Removed NG 07/28 Consult to hcc coders for nutritional concerns -Extensive diet planning for fiber restriction Diet advanced to soft/low fiber Resumed home meds as tolerated Notes For Next Care Provider Repeat CBC, CMP, MAG and PHOS in 1 week Medication Changes From Visit discontinue potassium supplement completed antibiotic course Admission HPI Per Admitting Provider Patient is a 69-year-old female with history of recurrent small bowel obstructions, underwent exploratory laparotomy, adhesion lysis, small bowel resection by Dr. Chavez on 07/06/2024, hypertension, hyperlipidemia, chronic hyponatremia secondary to SIADH, history of seizures, pituitary tumor, mood disorder, microscopic colitis and other medical problems presents with history of worsening abdominal pain associate with nausea and vomiting. Patient states that for surgery she was thought to have surgical site wound infection and she is on ciprofloxacin for a 12-day course currently on day 11. She has been having bowel movements with the help of MiraLAX postsurgery but her last bowel movement was 2 days ago. She started to develop intractable nausea, vomiting associate with abdominal pain predominantly at surgical site associated with cramps. Denies any flatus, bowel movement for 2 days. Also states having some retrosternal discomfort which she attributes to vomiting. Currently states having headache and has been dizzy for the past 2 days. Denies any history of dyspnea, diaphoresis, cough, wheezing, fever, chills, blood in stools, diarrhea, dysuria, hematuria. Her appetite has been significantly decreased due to nausea, vomiting and abdominal pain. CT abdomen from [place] showed findings suggestive of high-grade small bowel obstruction, site of obstruction at anastomotic site, also findings suggestive of mild ascites and no pneumoperitone um. Admission Exam Per Admitting Provider Physical Exam: Vitals signs as noted above General Appearance: Thin, frail, apparent distress due to abdominal pain Head: normocephalic, Atraumatic Eyes: normal inspection, EOMI Neck: supple, Trachea midline Respiratory/Chest: Normal breath sounds, CTA, No accessory muscle use Cardiovascular: S1, S2, No murmur, tachycardia Abdomen/GI:Soft, no audible bowel sounds, + tender,+ surgical site in dressing Extremities/Musculoskeletal:normal inspection, no edema Neurologic/Psych:AAOX3, grossly no focal neurological deficits Skin: normal color, warm Discharge Exam Constitutional WD/WN, vitals as above Respiratory normal respiratory effort, lungs clear to auscultation Cardiovascular RRR, no murmur, no edema Gastrointestinal (Abdomen) normal bowel sounds, soft, nontender, no hepatosplenomegaly Updated Medication List Medication Instructions Recorded Confirmed Type amlodipine 5 mg tablet 5 mg PO DAILY 07/04/24 07/24/24 History atorvastatin 20 mg tablet 20 mg PO DAILY 07/04/24 07/24/24 History azelastine 137 mcg (0.1 %) nasal 1 spray intranasal BID PRN Allergy 07/04/24 07/24/24 History spray Symptoms bupropion HCl 150 mg tablet,12 hr 150 mg PO QAM 07/04/24 07/24/24 History sustained-release buspirone 10 mg tablet 10 mg PO TID 07/04/24 07/24/24 History cholecalciferol (vitamin D3) 25 25 mcg PO DAILY 07/04/24 07/24/24 History mcg (1,000 unit) tablet (Vitamin D3) coenzyme Q10 100 mg capsule 200 mg PO DAILY 07/04/24 07/24/24 History (CoQ-10) cyanocobalamin (vitamin B-12) 1,000 mcg PO DAILY 07/04/24 07/24/24 History 1,000 mcg tablet cyclosporine 0.05 % eye drops in a 1 drp ophthalmic (eye) Q12H 07/04/24 07/24/24 History dropperette (Restasis) glucosamine sulf dipot 1 cap PO DAILY 07/04/24 07/24/24 History chlr,msm,chond 550 mg-C 30 mg-sandra 1 mg capsule (Glucosamine Chondroitin) lisinopril 40 mg tablet 40 mg PO DAILY 07/04/24 07/24/24 History lorazepam 0.5 mg tablet (Ativan) 0.5 mg PO HS PRN Anxiety 07/04/24 07/24/24 History omega 4-xya-vjv-fish oil 1,000 mg 1 cap PO DAILY 07/04/24 07/24/24 History (120 mg-180 mg) capsule (Fish Oil) polyethylene glycol 3350 17 gram 17 g PO DAILY 07/04/24 07/24/24 History oral powder packet (Miralax) vitamins A,C,X-viot-foyfqn 2,148 1 tab PO BID 07/04/24 07/24/24 History mcg-113 mg-45 mg-17.4 mg tablet (PreserVision AREDS) Bifidobacterium infantis 10.5 mg 10 mg (0.9524 x 10.5 mg (10 07/13/24 07/24/24 Rx (10 million cell) chewable tablet million cell)) PO DAILY #30 tabs (Align) magnesium chloride 71.5 mg 71.5 mg PO DAILY #30 tabs 07/13/24 07/24/24 Rx (magnesium chloride) tablet,delayed release (Slow-Mag) oxycodone 5 mg tablet 5 - 10 mg (1 - 2 x 5 mg) PO 07/13/24 07/24/24 Rx .[id number] PRN pain, for initial therapy, max 6 tabs per day #10 tabs Hospital Stay Data Consultations 07/24/24 12:41 Consult General Surgery Routine Pending Results Patient Have Any Pending Studies at Discharge: No Discharge Instructions Given to Patient (Per Discharging Provider) You were admitted for a small bowel obstruction You were treated conservatively and without surgical intervention You are recommended to continue a low fiber diet--you received details on this diet during your admission Please keep your appointment with Dr. Chavez on 08/11/2023 Total Time Total Time Spent Total Time Spent (In Minutes): 45
== END 2024-07-30 13:35 | disposition home or self-care (01) | DRG 388 ==
LOC: 2W 13:45 → SUATTDRO 13:45 → 2W 21:44 → 3N 07-27 00:22